=== PATIENT | female | born 1930 | race Caucasian/White ===

== ENCOUNTER 2016-02-29 15:13 | Inpatient (IN) | payer OTHER, MEDICAID ==
[~2016-02-29] VITALS: Ht 162.6 cm; Wt 92.1 kg
[2016-02-29] MEDS ORDERED: CEFEPIME 2GM/50 ML (PMX) 50 ML IVPB STA (15:16)
[2016-02-29] MEDS ORDERED: ALBUTEROL 0.5% (NEB) 2.5 MG/0.5 ML AMP HHN STA (15:16)
[2016-02-29] MEDS ORDERED: SOD CHLORIDE 0.9% 1,000 ML IV STA ×3 (15:20→15:43)
[2016-02-29] MEDS ORDERED: LEVALBUTEROL (NEB) 1.25 MG/0.5 ML AMP ONE (15:21)
[2016-02-29] MEDS ORDERED: LEVALBUTEROL (NEB) 1.25 MG/0.5 ML AMP HHN ONE (15:30)
[2016-02-29] MEDS ORDERED: IPRATROPIUM (NEB) 0.5 MG/2.5 ML AMP HHN ONE (15:30)
[2016-02-29] MEDS ORDERED: VANCOMYCIN 1 GM (PMX) 250 ML IVPB ONE (15:30)
[2016-02-29] MEDS ORDERED: ERGO500014 PO (15:57)
[2016-02-29] MEDS ORDERED: CLON0.2T5 PO (15:57)
--- NOTE | 2016-02-29 15:58 | RADRPT ---
PROCEDURE: XR Chest. CLINICAL INDICATION: Chest pain TECHNIQUE: Single frontal view of the chest was obtained. COMPARISON: 12/05/2007 FINDINGS: The heart is within normal limits. The thoracic aorta is calcified. There is left lower lobe linear atelectasis. There is no focal consolidation. There is no pleural effusion or pneumothorax. RPTAT: AA IMPRESSION: Left lower lobe linear atelectasis. Calcified aorta consistent with atherosclerotic disease. .Konstantin Brown MD, MD Date Time Electronically viewed and signed by .Konstantin Brown MD, on 02/29/2016 15:57 .S/
[2016-02-29] MEDS ORDERED: GABA300C16 PO (15:59)
[2016-02-29] MEDS ORDERED: ACETAMINOPHEN 325 MG TAB PO ONE (16:00)
[2016-02-29] MEDS ORDERED: MYCO500T3 PO (16:00)
[2016-02-29] MEDS ORDERED: NOVO3I SC (16:01)
[2016-02-29] MEDS ORDERED: CLOP75TA4 PO (16:01)
[2016-02-29] MEDS ORDERED: LANT3I SC (16:02)
[2016-02-29] MEDS ORDERED: LOSA1TAB21 PO (16:02)
[2016-02-29] MEDS ORDERED: AMLO-147 PO (16:14)
[2016-02-29] MEDS ORDERED: DUR100 TD (16:14)
[2016-02-29] MEDS ORDERED: LEVO250T9 PO (16:15)
[2016-02-29] MEDS ORDERED: ASPI-664 PO (16:16)
[2016-02-29] MEDS ORDERED: LATA2.5D2 BOTH EYES (16:17)
[2016-02-29] MEDS ORDERED: ALP2OP10 BOTH EYES (16:17)
[2016-02-29] MEDS ORDERED: LORAZEPAM 2 MG INJ IV ONE ×2 (16:30→20:00)
[2016-02-29 16:33] LABS: BASOPHILS % 0.3 % (0.0-2.0); EOSINOPHILS % 0.2 % (0.0-7.0); HEMATOCRIT 40.6 % (37.0-47.0); HEMOGLOBIN 12.9 g/dl (12.0-16.0); LYMPHOCYTES # 1.1 10^3/ul (0.8-2.9); LYMPHOCYTES % 12.5 % (15.0-51.0); MEAN CORPUSCULAR HEMOGLOBIN 25.8 pg (29.0-33.0); MEAN CORPUSCULAR HGB CONC 31.9 g/dl (32.0-37.0); MEAN CORPUSCULAR VOLUME 80.9 fl (82.0-101.0); MEAN PLATELET VOLUME 7.8 fl (7.4-10.4); MONOCYTE # 0.9 10^3/ul (0.3-0.9); MONOCYTES % 10.8 % (0.0-11.0); NEUTROPHIL # 6.5 10^3/ul (1.6-7.5); NEUTROPHILS % 76.2 % (39.0-77.0); PLATELET COUNT 343 10^3/UL (140-440); RED BLOOD COUNT 5.01 10^6/ul (4.20-5.40); UNCORRECTED WBC 8.5 10^3/ul (4.8-10.8); WHITE BLOOD COUNT 8.5 10^3/ul (4.8-10.8)
[2016-02-29] MEDS ORDERED: DILTIAZEM 25 MG INJ ONE (16:35)
[2016-02-29 16:37] LABS: CONDITION 1; LH ANALYZER COMMENTS 1
[2016-02-29 16:41] LABS: ALBUMIN 4.4 g/dl (3.3-4.9)
[2016-02-29 16:42] LABS: INR 0.97; POTASSIUM 4.4 mmol/L (3.5-5.1); PROTIME 12.9 Sec (12.2-14.2)
[2016-02-29 16:43] LABS: PARTIAL THROMBOPLASTIN TIME 25.7 Sec (25.0-35.0)
[2016-02-29 16:44] LABS: ALBUMIN/GLOBULIN RATIO 1.18; BILIRUBIN,INDIRECT 0.1 mg/dl (0-1.1); BILIRUBIN,TOTAL 0.1 mg/dl (0.2-1.3); CREATININE 1.17 mg/dl (0.44-1.00); TOTAL PROTEIN 8.1 g/dl (6.1-8.1)
[2016-02-29 16:45] LABS: CALCIUM 9.5 mg/dl (8.4-10.2)
[2016-02-29 16:56] LABS: TROPONIN-I 0.017 ng/ml (0.00-0.12)
[2016-02-29] MEDS ORDERED: DILTIAZEM 25 MG INJ IV ONE ×2 (17:00→20:00)
[2016-02-29] MEDS ORDERED: METHYLPREDNISOLONE 125 MG INJ IV ONE (19:00)
[2016-02-29] MEDS ORDERED: ONDANSETRON 4 MG INJ IV PRN (19:00)
[2016-02-29] MEDS ORDERED: ACETAMINOPHEN 325 MG TAB PO PRN (19:00)
--- NOTE | 2016-02-29 19:27 | ERA ---
ER Documentation Chief Complaint Date/Time DATE: 02/29/16 TIME: 19:24 Chief Complaint pt biba for asthma attack, , o2 sat is 95% on RA, very anxious HPI Patient is an 85-year-old female who presents short of breath. Please note the history and physical exam is limited secondary to the patient's significant short of breath. The patient came from home. She has diffuse rhonchi. She was given a nebulizer treatment by paramedics. Per the son she has been taking antibiotics for the past 2 days. ROS All systems reviewed and are negative except as per history of present illness. Medications Home Meds Reported Medications Latanoprost (Latanoprost) 2.5 Ml Drops, 1 DROP BOTH EYES QHS, #1 BOTTLE 02/29/16 Brimonidine Tartrate* (Alphagan*) 0.2%-10 Ml Opht Drops, 1 DROP BOTH EYES Q8, BOTTLE 02/29/16 Aspirin* (Aspirin* EC) 81 Mg Tablet.dr, 81 MG PO DAILY, TAB 02/29/16 Levofloxacin* (Levofloxacin*) 250 Mg Tablet, 250 MG PO DAILY, TAB FOR 7 DAYS START 02/27/16 02/29/16 Amlodipine Besylate* (Amlodipine Besylate*) 10 Mg Tablet, 10 MG PO DAILY, #30 TAB 02/29/16 Fentanyl Patch* (Duragesic Patch*) 100 Mcg/Hr Transdermal Patch, 1 PATCH TD Q72H for 90 Days, #45 PATCH 02/29/16 Losartan-Hydrochlorothiazide (Losartan-HCTZ) 100-12.5 Mg Tab, 1 TAB PO DAILY, TAB 02/29/16 Insulin Glargine* (Lantus*) 100 Unit/Ml Soln, 60 UNIT SC QHS, #1 VIAL 02/29/16 Insulin Aspart* (Novolog Insulin Pen*) 100 Unit/Ml Soln, UNIT SC WITH MEALS, EA SLIDING SCALE 02/29/16 Clopidogrel Bisulfate* (Clopidogrel Bisulfate*) 75 Mg Tablet, 75 MG PO DAILY, # 30 TAB 02/29/16 Mycophenolate Mofetil* (Mycophenolate Mofetil*) 500 Mg Tablet, 500 MG PO BID, TAB 02/29/16 Gabapentin* (Gabapentin*) 300 Mg Capsule, 300 MG PO Q4, #540 CAP 02/29/16 Ergocalciferol* (Drisdol* (Vitamin D2)) 50,000 Unit Capsule, 72946 UNIT PO Q7D, CAP 02/29/16 Clonidine Hcl* (Clonidine Hcl*) 0.2 Mg Tablet, 0.2 MG PO TID, TAB 02/29/16 Allergies Allergies: Coded Allergies: No Known Drug Allergy (Verified Allergy, Unknown, 07/17/07) PMhx/Soc History of Surgery: Yes (hysterectomy, gallbladder, ) Hx Respiratory Disorders: Yes (asthma) Hx Cardiac Disorders: Yes (htn, cholesterol ) Hx Miscellaneous Medical Probl: Yes (penphgoids , DM) Hx Alcohol Use: No Hx Substance Use: No Hx Tobacco Use: No Smoking Status: Never smoker FmHx Unable to obtain Physical Exam Vitals Vital Signs Date Time Temp Pulse Resp B/P Pulse Ox O2 Delivery O2 Flow Rate FiO2 02/29/16 19:05 114 99 75 02/29/16 18:32 90 24 100 Nasal Cannula 3.0 02/29/16 17:36 98.9 98 16 138/66 100 Mask 02/29/16 17:24 95 15 173/57 100 Mask 02/29/16 17:05 96 99 75 02/29/16 16:38 100.5 150 19 210/180 100 Mask 02/29/16 15:59 8.0 02/29/16 15:58 9 02/29/16 15:46 100.4 143 23 173/107 100 Mask 02/29/16 15:29 138 96 100 02/29/16 15:29 140 24 02/29/16 15:17 100.3 148 23 173/107 99 Physical Exam Const: Moderate distress secondary to shortness of breath Head: Atraumatic Eyes: Normal Conjunctiva ENT: Normal External Ears, Nose and Mouth. Neck: Full range of motion..~ No meningismus. Resp: Accessory muscle use, retractions, diffuse rhonchi in all lung rodriguez Cardio: Tachycardic rate without murmurs Abd: Soft, non tender, non distended. Normal bowel sounds Skin: No petechiae or rashes Back: No midline or flank tenderness Ext: No cyanosis, or edema Neur: Awake but anxious Result Diagram: 02/29/16 1550 02/29/16 1550 Results 24 hrs Laboratory Tests Test 02/29/16 15:50 02/29/16 18:50 Activated Partial Thromboplast Time 25.7Sec Alanine Aminotransferase (ALT/SGPT) 25IU/L Albumin 4.4g/dl Albumin/Globulin Ratio 1.18 Alkaline Phosphatase 97IU/L Anion Gap 20 Aspartate Amino Transf (AST/SGOT) 17IU/L Basophils # 0.010^3/ul Basophils % 0.3% Blood Morphology Comment Blood Urea Nitrogen 36mg/dl Calcium Level 9.5mg/dl Carbon Dioxide Level 23mmol/L Chloride Level 100mmol/L Creatinine 1.17mg/dl Direct Bilirubin 0.00mg/dl Eosinophils # 0.010^3/ul Eosinophils % 0.2% Globulin 3.70g/dl Glucose Level 228mg/dl Hematocrit 40.6% Hemoglobin 12.9g/dl INR International Normalized Ratio 0.97 Indirect Bilirubin 0.1mg/dl Lactic Acid Level 2.3mmol/L 2.4mmol/L Lymphocytes # 1.110^3/ul Lymphocytes % 12.5% Mean Corpuscular Hemoglobin 25.8pg Mean Corpuscular Hemoglobin Concent 31.9g/dl Mean Corpuscular Volume 80.9fl Mean Platelet Volume 7.8fl Monocytes # 0.910^3/ul Monocytes % 10.8% Neutrophils # 6.510^3/ul Neutrophils % 76.2% Nucleated Red Blood Cells # 0.010^3/ul Nucleated Red Blood Cells % 0.0/100WBC Platelet Count 17842^3/UL Potassium Level 4.4mmol/L Prothrombin Time 12.9Sec Prothrombin Time Ratio 1.0 Red Blood Count 5.0110^6/ul Red Cell Distribution Width 16.0% Sodium Level 139mmol/L Total Bilirubin 0.1mg/dl Total Protein 8.1g/dl Troponin I 0.017ng/ml White Blood Count 8.510^3/ul Current Medications Medications (Trade) Dose Ordered Sig/Heidi Route PRN Reason Start Time Stop Time Status Last Admin Dose Admin Cefepime HCl 50 ml @ 100 mls/hr ONCE STAT IVPB 02/29/16 15:16 02/29/16 15:45 DC 02/29/16 15:53 Vancomycin HCl (Vancocin) 250 ml @ 125 mls/hr ONCE ONCE IVPB 02/29/16 15:30 02/29/16 17:29 DC 02/29/16 17:38 Albuterol (Proventil 0.5% (Neb)) 15 mg ONCE STAT HHN 02/29/16 15:16 02/29/16 15:21 DC Ipratropium [place] (Atrovent 0.02% (Neb)) 0.5 mg ONCE ONCE HHN 02/29/16 15:30 02/29/16 15:31 DC 02/29/16 15:29 Levalbuterol 5 mg 5 mg ONCE ONCE HHN 02/29/16 15:30 02/29/16 15:31 DC 02/29/16 15:29 Sodium Chloride 1,000 ml @ 1,000 mls/hr Q1H STAT IV 02/29/16 15:20 02/29/16 16:19 DC 02/29/16 15:53 Sodium Chloride (NS) 1,000 ml @ 1,000 mls/hr Q1H STAT IV 02/29/16 15:20 02/29/16 16:19 DC 02/29/16 18:48 Levalbuterol (Xopenex Neb) 1.25 mg STK-MED ONCE .ROUTE 02/29/16 15:21 02/29/16 15:22 DC Acetaminophen 650 mg 650 mg ONCE ONCE PO 02/29/16 16:00 02/29/16 16:01 DC 02/29/16 15:53 Sodium Chloride (NS) 1,000 ml @ 1,000 mls/hr Q1H STAT IV 02/29/16 15:43 02/29/16 16:42 DC Lorazepam (Ativan) 0.5 mg ONCE ONCE IV 02/29/16 16:30 02/29/16 16:31 DC 02/29/16 16:39 Diltiazem HCl (Cardizem Iv) 20 mg ONCE ONCE IV 02/29/16 17:00 02/29/16 17:01 DC 02/29/16 16:39 Diltiazem HCl (Cardizem Iv) 25 mg STK-MED ONCE .ROUTE 02/29/16 16:35 02/29/16 16:36 DC Methylprednisolone Sodium Succinate (Solu-Medrol) 125 mg ONCE ONCE IV 02/29/16 19:00 02/29/16 19:01 DC Ondansetron HCl (Zofran Inj) 4 mg ER BRIDGE PRN IV NAUSEA AND/OR VOMITING 02/29/16 19:00 12/15/16 18:59 Acetaminophen (Tylenol Tab) 650 mg ER BRIDGE PRN PO MILD PAIN/FEVER 02/29/16 19:00 03/01/16 18:59 Procedures/MDM EKG read by me: Rate/Rhythm: Rapid atrial fibrillation at a rate of 141 Intervals: Normal Impression: Rapid A. fib without evidence of ischemia Chest X-ray 1V Interpreted by me: Soft Tissue: No acute abnormalities Bones: No acute abnormalities Mediastinum/Cardiac Silhouette/Lungs: Right lower lobe pneumonia Admit MDM: Patient's infectious symptoms have not stabilized and the patient is at risk of rapid decompensation. The patient will be admitted for careful hydration, antibiotic therapy, and infectious source control. Severe Sepsis criteria: Infectious source: Pneumonia End organ damage indicated by: Respiratory failure Sepsis Management: Time of recognition of sepsis: Upon arrival Within 3 hours of recognition: Blood cultures x 2 before broad-spectrum antibiotics: Yes 30 ml/kg NS bolus Completed Initial lactate 2.3 Repeat lactate 2.4 Time of recognition of septic shock: No septic shock Septic Shock Assessment: Any lactic acid > 4.0 No Persistent hypotension (SBP < 90 or 40 mmHg drop, MAP < 65) despite 30 mL/kg IV fluid bolus No Volume Re-assessment for Septic Shock (post 30 ml/kg bolus): No septic shock at this time Persistent Hypotension Treatment: Comfort care No Central line Not Required Vasopressor started Not required I considered further perfusion assessment with CVP measurement, SCVO2, bedside ultrasound volume assessment, passive leg raise, trial of further fluid bolus. And proceeded with 30 ml/kg fluid bolus of NSS, broad spectrum antibiotics, and admission. The patient also required BiPAP therapy. We initially weaned her from BiPAP to nasal cannula but she became short of breath and hypoxic and BiPAP was restarted. Accepting Care Team Current data and ongoing care discussed. Admitting Physician: Dr. Whitfield from the [facility] at the patient has [employer] insurance claim adjuster(s): None Outstanding Data: Culture results Critical Care: Critical care time 35 minutes excluding all billable procedures Emergent fluid management while maintaining close respiratory support. Provision of immediate and broad-spectrum antibiotic therapy. Simultaneous assessment for possible sources in order to direct targeted therapy. Consideration for invasive and chemical support to prevent cardiopulmonary collapse. Departure Diagnosis: Primary Impression: Sepsis Qualified Code: A41.9 - Sepsis, due to unspecified organism Additional Impressions: PNA (pneumonia) Qualified Code: J18.9 - Pneumonia of right lower lobe due to infectious organism Shortness of breath Condition: Serious BASILIO BUCIO MD Feb 29, 2016 19:27
[2016-02-29 20:05] LABS: AADO2 Arterial 263.4 mmHg (7.0-24.0); Allen Test ACCEPTAB; Arterial COHb 0.3 % (0.0-3.0); Arterial Fraction of Oxyhgb 98.5 % (93.0-99.0); Arterial HCO3 20.6 mmol/L (22.0-26.0); Arterial MetHb 0.3 % (0.0-1.5); Arterial Total Hemglobin 12.5 g/dl (12.0-18.0); Blood Gas IEPAP 15/5; Blood Gas PS 10; MODE MASK - BIPAP
[2016-03-01] VITALS (12 sets, daily range): BP systolic 135–185; BP diastolic 63–84; PULSE 65–99; RESP 18–20; TEMP 98; Ht 162.6 cm; Wt 92.1 kg
--- NOTE | 2016-03-01 00:56 | QN ---
Documentation Comment H&P dict a/p 1. pulm: copd vs asthma, prolonged expirations with wheeze, cont nebs, and steroids, abx 2. cards: a fib, controlled rate (b) presumed CAD in light of aspirin and plavix, will continue; presumed that this dual antiplatlet is the more important treatment rated than anticoagulation for afib 3. gi: ?hepatosplenomegaly on exam, obtain us to evaluate 4. dm 5. proph; ROQUE Foster MD Mar 01, 2016 00:56
[2016-03-01] MEDS ORDERED: ALBUTEROL 0.083% (NEB) 2.5 MG/3 ML AMP HHN PRN (01:00)
[2016-03-01] MEDS ORDERED: ONDANSETRON 4 MG INJ IV PRN (01:00)
[2016-03-01] MEDS ORDERED: GLUCAGON 1 MG INJ IM PRN (02:00)
[2016-03-01] MEDS ORDERED: GLUCOSE GEL 15 GRAM TUBE PO PRN ×2 (02:00)
[2016-03-01] MEDS ORDERED: INSULIN GLARGINE [LANtus] 3 ML PEN SC ONE (02:00)
[2016-03-01] MEDS ORDERED: DEXTROSE 50% 50 ML SYRINGE IV PRN ×2 (02:00)
[2016-03-01] MEDS ORDERED: GLUCOSE GEL 15 GRAM TUBE BUCCAL PRN (02:00)
[2016-03-01] MEDS: ALBUTEROL/IPRATROPIUM (NEB) 3 ML AMP HHN SCH ×4 (02:32→20:05)
[2016-03-01] MEDS: METHYLPREDNISOLONE 125 MG INJ IV SCH ×3 (02:39→18:08)
[2016-03-01] MEDS: DILTIAZEM 30 MG TAB PO SCH ×4 (02:46→22:11)
[2016-03-01] MEDS: GABAPENTIN 300 MG CAP PO SCH ×3 (02:46→18:08)
--- NOTE | 2016-03-01 03:33 | HP ---
DATE OF ADMISSION: 02/29/2016 CHIEF COMPLAINT: Shortness of breath. HISTORY OF PRESENT ILLNESS: Ms. Jalloh presents to the emergency room at [facility] with a 2 day history of increasing shortness of breath. According to her caregiver at the bedside, the p andrzej has been complaining of shortness of breath with some coughing for the last 2 days. This has gotten progressively worse to the point where she needed to come to the emergency room. She denies any recent illness, any fevers or chills. Denies cold or flu. She states that she has been in the hospital previously for similar type symptoms. She saw her primary care physician approximately a day ago and was provided what they described as cortisone and antibiotics; however, this has gotten worse. PAST MEDICAL HISTORY: Significant for diabetes, hypertension, and is presumed also include atrial f ibrillation, coronary artery disease, and COPD based on patient's medication list. The patient's ca regiver is not familiar, however, with these conditions. MEDICATIONS: As an outpatient include 1. Plavix 75 mg daily. 2. Norvasc 10 mg daily. 3. Clonidine 0.2 mg t.i.d. 4. Losartan/hydrochlorothiazide 100/12.5. 5. Aspirin 81 mg daily. 6. Duragesic 100 mcg per hour patch. 7. Neurontin 300 mg, possibly as often as every 4 hours. 8. Eyedrops. 9. Lantus 60 units daily with aspart insulin correction. 10. Vitamin D. 11. Mycophenolate. ALLERGIES: NO KNOWN DRUG ALLERGIES. SOCIAL HISTORY: The patient lives at home in [place] and has the assistance of a caregiver 24 hour s who lives with her who provides mostly housework, cooking and shopping assistance. Neither the pa tient nor caregiver drive. Family will take the patient to her various appointments. She does use a walker, but she is independent with dressing and feeding herself. FAMILY HISTORY: Noncontributory. REVIEW OF SYSTEMS: Five systems reviewed and found not to be revealing. PHYSICAL EXAMINATION: VITAL SIGNS: Blood pressure is 131/72, pulse rate 84, respirations 17, temperature is 100.5. GENERAL: Elderly woman found lying in bed on BiPAP, awake, responds to questions when they are alcala slated by the caregiver. HEENT: Normocephalic, atraumatic without evident scleral icterus, perioral cyanosis. Mucous membra mayda are moist. NECK: Soft and supple without masses. I do not appreciate any jugular venous distention or carotid bruits. CHEST: Shows prolonged expiration and faint wheezing throughout. I do not appreciate any definitiv e crackles. There is no dullness to percussion. HEART: Irregular rhythm, S1-S2, no added sounds. ABDOMEN: Soft, distended with obesity, moves with BiPAP respiration, somewhat rigid. There is a koo ggestion on examination of hepatosplenomegaly to approximately the umbilicus for both lower organs, but no tenderness is elicited. EXTREMITIES: Without clubbing or cyanosis. There is modest edema bilaterally with some venous eliane is changes. Pedal pulses are intact. SKIN: Otherwise without rashes. NEUROLOGIC: Poorly cooperative but moving all limbs without difficulty. LABORATORY STUDIES: Reveal hemoglobin of 12.9 g/dL, white count 8500, platelets of 343,000. INR is 1.0. Sodium 139, potassium 4.4, chloride 100, bicarbonate 23, BUN 36, creatinine 1.17, glucose 228 . Liver function tests are unremarkable. Troponin is negative x1. Lactic acid was 2.3 at arrival. It has most recently been repeated at 1.1. Arterial blood gas done on BiPAP reveals a pH of 7.28, PCO2 of 45, PO2 of 224 on an FIO2 of 75%. Chest x-ray shows some faint atelectasis versus infiltra te in the right lower lobe. ASSESSMENT AND PLAN: 1. Pulmonary: The patient with shortness of breath likely related to reactive airways disease, ast hma, and chronic obstructive pulmonary disease. We will continue nebulizers and steroids and give L evaquin. 2. Possible infiltrate in the right lower lobe. We will obtain followup x-ray in approximately 24 to 48 hours to further delineate and continue antibiotics at this time. 3. Cardiac: The patient with presumed coronary artery disease. Continue aspirin and Plavix. The patient with atrial fibrillation on the monitor. Determine if or if not aspirin and Plavix is the p referred treatment to full anticoagulation for this. 4. Gastrointestinal: The patient with possible hepatosplenomegaly based on physical examination. We will obtain abdominal ultrasound for further evaluation. 5. Diabetes: Continue Accu-Cheks and sliding scale. 6. Prophylaxis with Lovenox. Dictated By: ROQUE MÁRQUEZ MD RER/NTS Conf#: [id number] DID#: [id number]
[2016-03-01] MEDS ORDERED: LEVOFLOXACIN 500MG/D5W (PMX) 100 ML IVPB ONE (06:00)
[2016-03-01 06:25] LABS: BASOPHILS % 0.1 % (0.0-2.0); EOSINOPHILS % 0.1 % (0.0-7.0); HEMOGLOBIN 11.6 g/dl (12.0-16.0); LYMPHOCYTES # 0.6 10^3/ul (0.8-2.9); MEAN CORPUSCULAR HEMOGLOBIN 26.2 pg (29.0-33.0); MEAN CORPUSCULAR HGB CONC 32.2 g/dl (32.0-37.0); MEAN CORPUSCULAR VOLUME 81.3 fl (82.0-101.0); MEAN PLATELET VOLUME 8.2 fl (7.4-10.4); MONOCYTE # 0.1 10^3/ul (0.3-0.9); NEUTROPHIL # 6.4 10^3/ul (1.6-7.5); NEUTROPHILS % 90.8 % (39.0-77.0); PLATELET COUNT 270 10^3/UL (140-440); RED BLOOD COUNT 4.42 10^6/ul (4.20-5.40)
[2016-03-01 06:26] LABS: CONDITION 1; LH ANALYZER COMMENTS 1
[2016-03-01 06:39] LABS: ALBUMIN 3.9 g/dl (3.3-4.9)
[2016-03-01 06:40] LABS: POTASSIUM 4.9 mmol/L (3.5-5.1)
[2016-03-01 06:42] LABS: CREATININE 1.2 mg/dl (0.44-1.00)
[2016-03-01 06:43] LABS: ALBUMIN/GLOBULIN RATIO 1.18; CALCIUM 8.4 mg/dl (8.4-10.2); TOTAL PROTEIN 7.2 g/dl (6.1-8.1)
[2016-03-01 06:53] LABS: TROPONIN-I 0.039 ng/ml (0.00-0.12)
[2016-03-01] MEDS ORDERED: AMLODIPINE 10 MG TAB PO SCH (09:00)
[2016-03-01] MEDS: CLOPIDOGREL 75 MG TAB PO SCH (09:07)
[2016-03-01] MEDS: MYCOPHENOLATE 250 MG CAP PO SCH ×2 (09:08→22:10)
[2016-03-01] MEDS: LOSARTAN 50 MG TAB PO SCH (09:11)
[2016-03-01] MEDS: ASPIRIN (EC) 81 MG TAB PO SCH (09:11)
[2016-03-01] MEDS: HYDROCHLOROTHIAZIDE 12.5 MG CAP PO SCH (09:12)
[2016-03-01] MEDS: ENOXAPARIN 40 MG/0.4 ML SYG SC SCH (09:12)
[2016-03-01] MEDS: BRIMONIDINE 0.2% 5 ML BTL BOTH EYES SCH ×3 (09:12→22:10)
[2016-03-01] MEDS: INSULIN ASPART [NOVOLOG] 3 ML PEN SC SCH ×4 (09:13→21:00)
--- NOTE | 2016-03-01 09:15 | RADRPT ---
PROCEDURE: Complete abdominal and retroperitoneum ultrasound. CLINICAL INDICATION: Abdominal pain, hepatomegaly, splenomegaly TECHNIQUE: Salmeron scale and color doppler ultrasound images of the abdomen and retroperitoneum. COMPARISON: None FINDINGS: Pancreas: Poorly visualized Liver: Morphology: Normal in size and contour. Echogenicity: Normal. Focal lesions: None. Main portal vein: Not visualized. Biliary System: Status post cholecystectomy. No evidence of intrahepatic biliary dilatation. Common bile duct diameter: Not visualized Spleen: Normal in size, no focal lesions. Measures 10.3 cm Kidneys: Right length: 8.3 cm Left kidney not adequately visualized. Normal echogenicity. No hydronephrosis. No focal lesions or renal calculi. No free fluid identified. IMPRESSION: Mildly atrophic right kidney. Left kidney not visualized. Normal size liver and spleen. Status post cholecystectomy. RPTAT: AADD .Douglas Kessler MD, Date Time Electronically viewed and signed by .Douglas Kessler MD, on 03/01/2016 09:14 .B/
[2016-03-01 10:23] LABS: AADO2 Arterial 530.3 mmHg (7.0-24.0); Allen Test ACCEPTAB; Arterial COHb 0.1 % (0.0-3.0); Arterial Fraction of Oxyhgb 98.1 % (93.0-99.0); Arterial HCO3 18.8 mmol/L (22.0-26.0); Arterial MetHb 0.3 % (0.0-1.5); MODE MASK - NRB
--- NOTE | 2016-03-01 14:39 | RADRPT ---
AMENDMENT: 03/01/2016 3:01:54 PM Josse King M.D. Addendum: Correction: PROCEDURE: Bilateral lower extremity venous duplex ultrasound CLINICAL INDICATION: Shortness of breath, lower extremity pain. TECHNIQUE: Multiple longitudinal and transverse images of the bilateral lower extremity veins were obtained with sorto scale and color Doppler imaging. 2D grayscale measurements with compression, co sade Doppler flow, and augmentation was performed. The calf veins were interrogated as well. COMPARISON: No prior studies are available for comparison. FINDINGS: The bilateral common femoral, superficial femoral and popliteal veins are normally compressible thro ughout. Color flow demonstrates normal filling of the vessel. Normal waveforms are visualized and there is normal response to augmentation. The calf veins are visualized and are equally unremarkabl e. IMPRESSION: 1. No evidence of a deep vein thrombosis involving the bilateral lower extremities. PROCEDURE: US DVT. CLINICAL INDICATION: Shortness of breath, lower extremity pain. TECHNIQUE: Multiple longitudinal and transverse images of the right lower extremity veins were obt ained with sorto scale and color Doppler imaging. 2D grayscale measurements with compression, color Doppler flow, and augmentation was performed. The calf veins were interrogated as well. COMPARISON: No prior studies are available for comparison. FINDINGS: The right common femoral, superficial femoral and popliteal veins are normally compressible througho ut. Color flow demonstrates normal filling of the vessel. Normal waveforms are visualized and ther e is normal response to augmentation. The calf veins are visualized and are equally unremarkable. IMPRESSION: 1. No evidence of a deep vein thrombosis involving the right lower extremity. RPTAT: AACC Physician Олег Date Time Electronically viewed and signed by Physician Олег on 03/01/2016 15:02 /
--- NOTE | 2016-03-01 16:45 | CONS ---
DATE OF ADMISSION: 02/29/2016 DATE OF CONSULTATION: 03/01/2016 TYPE OF CONSULTATION: Pulmonary. REFERRING PHYSICIAN: Efrem Simpson MD REASON FOR CONSULTATION: Acute hypoxemic respiratory failure. HISTORY OF PRESENT ILLNESS: This is an 85-year-old woman who was brought into the emergency room wi complaints of increasing shortness of breath. It appears that the patient has developed a new co ugh, which was productive, and then developed shortness of breath. She was seen by her primary care physician and started on steroids and an antibiotic; however, her symptoms persisted and actually g ot worse and subsequently she came to the ER for further evaluation. On chest x-ray, she was noted to have any bandemia atelectasis in the left lower lobe, otherwise no acute infiltrates were identi fied. Cultures were obtained. Patient was started on broad-spectrum antibiotics. Due to her profo und hypoxemia. The patient was placed on a BiPAP mask. She is currently on BiPAP on 50% FIO2, satu rating 99% and does not appear in acute distress. She is awake and responsive. REVIEW OF SYSTEMS: Could not be obtained due to language barrier . PAST MEDICAL HISTORY: Apparently history of diabetes mellitus, hypertension, atrial fibrillation, c oronary artery disease and COPD. ALLERGIES: NO KNOWN ALLERGIES. SOCIAL HABITS: Patient lives at home with a caregiver. FAMILY HISTORY: Unavailable. PHYSICAL EXAMINATION: VITAL SIGNS: Blood pressure 176/73, pulse 84, respirations 15, temperature 98. HEENT: Pupils are equal and reactive to light. BiPAP in place. NECK: Supple, no JVD noted, no cervical adenopathy, no carotid bruits heard. LUNGS: Diminished breath sounds and few rhonchi. CARDIOVASCULAR: S1, S2 normal, irregular. ABDOMEN: Soft, obese, nontender. No organomegaly or masses noted. EXTREMITIES: No clubbing or cyanosis noted. 1+ edema present bilaterally. NEUROLOGICAL: Awake and responsive. LABORATORY DATA: ABG shows a pH of 7.25, pCO2 43, pO2 of 139. Sodium 141, potassium 4.9, chloride 106, CO2 20, BUN 33, creatinine 1.2, glucose 314. WBC 7, hemoglobin 11.6, hematocrit 36, platelets 270. Chest x-ray left linear atelectasis. IMPRESSION: An 85-year-old female with: 1. Acute hypoxemic respiratory failure. 2. Chronic obstructive pulmonary disease exacerbation. 3. Bronchitis. At this point, there is no clear evidence of pneumonia yet. 4. Metabolic acidosis. 5. History of diabetes. 6. History of hypertension. 7. Atrial fibrillation. 8. Coronary artery disease. RECOMMENDATIONS: 1. BiPAP p.r.n. 2. Check cultures. 3. Antibiotics. 4. Bronchodilators. 5. Oxygen. 6. Followup chest x-ray. 7. Check Dopplers of the lower extremity venous to rule out DVT. Dictated By: PARK [place] MD, MA/DARIO Conf#: [id number] DID#: [id number] CC: PARK NY MD;*EndCC*
[2016-03-02] VITALS (23 sets, daily range): BP systolic 114–169; BP diastolic 56–86; PULSE 62–153; RESP 16–20
[2016-03-02] MEDS: ALBUTEROL/IPRATROPIUM (NEB) 3 ML AMP HHN SCH ×4 (01:35→21:28)
[2016-03-02] MEDS: GABAPENTIN 300 MG CAP PO SCH ×3 (01:43→17:38)
[2016-03-02] MEDS: LATANOPROST 0.005% 2.5 ML OPH BOTH EYES SCH ×2 (01:43→21:22)
[2016-03-02] MEDS: METHYLPREDNISOLONE 125 MG INJ IV SCH ×3 (01:43→17:38)
[2016-03-02] MEDS: DILTIAZEM 30 MG TAB PO SCH ×4 (01:46→21:09)
[2016-03-02] MEDS: ACCUCHECK AT 2AM (Patients on SS coverage) XX SCH (01:52)
[2016-03-02 06:45] LABS: HEMATOCRIT 35.8 % (37.0-47.0); HEMOGLOBIN 11.4 g/dl (12.0-16.0); LYMPHOCYTES # 0.7 10^3/ul (0.8-2.9); LYMPHOCYTES % 15.3 % (15.0-51.0); MEAN CORPUSCULAR HEMOGLOBIN 25.8 pg (29.0-33.0); MEAN CORPUSCULAR HGB CONC 31.9 g/dl (32.0-37.0); MEAN CORPUSCULAR VOLUME 81.1 fl (82.0-101.0); MEAN PLATELET VOLUME 8.2 fl (7.4-10.4); MONOCYTE # 0.1 10^3/ul (0.3-0.9); MONOCYTES % 1.4 % (0.0-11.0); NEUTROPHIL # 3.8 10^3/ul (1.6-7.5); NEUTROPHILS % 83.3 % (39.0-77.0); PLATELET COUNT 257 10^3/UL (140-440); RED BLOOD COUNT 4.41 10^6/ul (4.20-5.40); RED CELL DISTRIBUTION WIDTH 16.2 % (11.5-14.5); UNCORRECTED WBC 4.6 10^3/ul (4.8-10.8); WHITE BLOOD COUNT 4.6 10^3/ul (4.8-10.8)
[2016-03-02 06:51] LABS: ALBUMIN 3.7 g/dl (3.3-4.9)
[2016-03-02 06:53] LABS: CREATININE 1.37 mg/dl (0.44-1.00)
[2016-03-02 06:54] LABS: ALBUMIN/GLOBULIN RATIO 1.12; CALCIUM 8.7 mg/dl (8.4-10.2)
[2016-03-02 06:59] LABS: CONDITION 1; LH ANALYZER COMMENTS 1
[2016-03-02] MEDS: BRIMONIDINE 0.2% 5 ML BTL BOTH EYES SCH ×3 (07:01→21:22)
[2016-03-02] MEDS: LEVOFLOXACIN 250MG/D5W (PMX) 50 ML IVPB SCH (07:02)
[2016-03-02 07:28] LABS: PHOSPHORUS 5.2 mg/dl (2.5-4.9)
[2016-03-02 07:29] LABS: MAGNESIUM 2.1 mg/dl (1.7-2.5)
--- NOTE | 2016-03-02 08:24 | RADRPT ---
PROCEDURE: XR Chest. CLINICAL INDICATION: Shortness of breath. TECHNIQUE: Single frontal view. COMPARISON: 02/29/2016. FINDINGS: There is mild left basilar atelectasis. The lungs are otherwise clear. The heart size is normal. There is calcification in the aorta consistent with atherosclerosis. There is no pleural effusion. There is no pneumothorax. IMPRESSION: 1. Mild left basilar atelectasis. 2. Atherosclerosis. 3. Otherwise normal chest x-ray. 4. No change from 02/29/2016. RPTAT: QQ .Jim Calloway MD, MD Date Time Electronically viewed and signed by .Jim Calloway MD, MD on 03/02/2016 08:23 .R/
[2016-03-02] MEDS: INSULIN ASPART [NOVOLOG] 3 ML PEN SC SCH ×4 (08:35→21:11)
[2016-03-02] MEDS: ASPIRIN (EC) 81 MG TAB PO SCH (10:05)
[2016-03-02] MEDS: MYCOPHENOLATE 250 MG CAP PO SCH (10:05)
[2016-03-02] MEDS: CLOPIDOGREL 75 MG TAB PO SCH (10:06)
[2016-03-02] MEDS: HYDROCHLOROTHIAZIDE 12.5 MG CAP PO SCH (10:06)
[2016-03-02] MEDS: LOSARTAN 50 MG TAB PO SCH (10:07)
[2016-03-02] MEDS: ENOXAPARIN 40 MG/0.4 ML SYG SC SCH (10:10)
[2016-03-02] MEDS: morphine 2 MG INJ IV PRN (11:42)
--- NOTE | 2016-03-02 12:56 | PN ---
Date/Time of Note Date/Time of Note DATE: 03/02/16 TIME: 11:50 Assessment/Plan VTE Prophylaxis VTE Prophylaxis Intervention: SCD's Lines/Catheters IV [facility]from [facility] Urinary Cath still in place: No Assessment/Plan Assessment/Plan 85 yo female with: 1. Acute Respiratory failure. ? Bronchitis/URI/ PNA with reported history of Asthma Dopplers negative and repeat CXR stable/mostly clear Pulmonary following Still requiring BiPAP today Continue nebulizers, steroids, Levaquin. 2. Paroxysmal A fib, no CAD per family but hx of Minor CVA ... patient should be now on anticoagulation given findings of A fib, family agreeable and will d/ c Plavix. Patient not on ASA as outpatient per Family so will also d/c Continue Cardizem and check 2D echo and TFTs Start Eliquis. 3. Diabetes Mellitus: Continue Accu-Cheks and sliding scale. Resume Lantus at 20 units qhs and titrate up as tolerated 4. Severe Hypertension: continue Losartan, split dose, also on Clonidine and Norvasc, maximizing Cardizem as tolerated for HR control and d/c HCTZ for now, if needs diuresis, use Lasix or Bumex. 5. Pemphigoid disease per family, chronic for years and has been on Cellcept Prophylaxis: Now on Eliquis given A fib, PPI for GI ppx Disposition: BiPAP and follow up Pulmonary recs, 2D echo and TFTs. Cardiology consult if needed Subjective 24 Hr Interval Summary Free Text/Dictation Patient back on BiPAP today, still on nebs and steroids Appreciate recommendations from Dr Horton Continue BiPAP Exam/Review of Systems Vital Signs Vitals Vital Signs Date Time Temp Pulse Resp B/P Pulse Ox O2 Delivery O2 Flow Rate FiO2 03/02/16 11:28 114 98 40 03/02/16 08:30 20 Nasal Cannula 5.0 03/02/16 07:40 97.9 169/72 Intake and Output 03/01/16 03/01/16 03/02/16 15:00 23:00 07:00 Intake Total 120 ml Balance 120 ml Exam Constitutional: alert, other (on BiPAP) Respiratory: diminished breath sounds (bilaterally ), labored breathing, wheezing (expiratory ) Cardiovascular: irregular rhythm (A fib ) Gastrointestinal: non-tender, soft Musculoskeletal: nl extremities to inspection, other (no edema, clubbing or cyanosis ) Extremities: normal pulses 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, lethargic, other (on BiPAP) Results Result Diagram: 03/02/1652103/02/16521 Results 24 hrs Laboratory Tests Test 03/01/16 12:49 03/01/16 17:45 03/01/16 21:39 03/02/16 05:22 Bedside Glucose 228 H 100 116 Alanine Aminotransferase (ALT/SGPT) 28 Albumin 3.7 Albumin/Globulin Ratio 1.12 Alkaline Phosphatase 73 Anion Gap 18 H Aspartate Amino Transf (AST/SGOT) 19 Basophils # 0.0 Basophils % 0.0 Blood Morphology Comment Blood Urea Nitrogen 45 #H Calcium Level 8.7 Carbon Dioxide Level 23 Chloride Level 107 Creatinine 1.37 H Direct Bilirubin 0.00 Eosinophils # 0.0 Eosinophils % 0.0 Globulin 3.30 H Glucose Level 173 # Hematocrit 35.8 L Hemoglobin 11.4 L Hemoglobin A1c 8.2 H Indirect Bilirubin 0.0 Lymphocytes # 0.7 L Lymphocytes % 15.3 Magnesium Level 2.1 Mean Corpuscular Hemoglobin 25.8 L Mean Corpuscular Hemoglobin Concent 31.9 L Mean Corpuscular Volume 81.1 L Mean Platelet Volume 8.2 Monocytes # 0.1 L Monocytes % 1.4 Neutrophils # 3.8 Neutrophils % 83.3 H Nucleated Red Blood Cells # 0.0 Nucleated Red Blood Cells % 0.0 Phosphorus Level 5.2 H Platelet Count 257 Potassium Level 5.0 Red Blood Count 4.41 Red Cell Distribution Width 16.2 H Sodium Level 143 Total Bilirubin 0.0 L Total Protein 7.0 White Blood Count 4.6 #L Test 03/02/16 08:08 Bedside Glucose 195 Medications Medications Current Medications Aspirin (Halfprin) 81 mg DAILY PO Last administered on 03/02/16at 10:05; Admin Dose 81 MG; Start 03/01/16 at 09:00 Brimonidine Tartrate (Alphagan 0.2%) 1 drop Q8 BOTH EYES Last administered on 03/02/16at 07:01; Admin Dose 1 DROP; Start 03/01/16 at 06:00 Clonidine (Catapres) 0.2 mg TID PO Last administered on 03/02/16at 10:07; Admin Dose 0.2 MG; Start 03/01/16 at 09:00 Clopidogrel Bisulfate (plaVIX) 75 mg DAILY PO Last administered on 03/02/16 10:06; Admin Dose 75 MG; Start 03/01/16 at 09:00 Fentanyl (Duragesic 100 Mcg/Hr Patch) 1 patch Q72H TRANSDERM Last administered on 03/01/16 09:14; Admin Dose 1 PATCH; Start 03/01/16 at 09:00 Latanoprost (Xalatan) 1 drop QHS BOTH EYES Last administered on 03/02/16 01: 43; Admin Dose 1 DROP; Start 03/01/16 at 21:00 Mycophenolate Mofetil (Cellcept) 500 mg BID PO Last administered on 03/02/16 10:05; Admin Dose 500 MG; Start 03/01/16 at 09:00 Losartan Potassium (Cozaar) 100 mg DAILY PO Last administered on 03/02/16 10: 07; Admin Dose 100 MG; Start 03/01/16 at 09:00 Gabapentin (Neurontin) 300 mg Q8H PO Last administered on 03/02/16 10:07; Admin Dose 300 MG; Start 03/01/16 at 02:00 Methylprednisolone Sodium Succinate (Solu-Medrol) 60 mg Q8H IV Last administered on 03/02/16 10:08; Admin Dose 60 MG; Start 03/01/16 at 02:00 Acetaminophen (Tylenol Tab) 650 mg Q4H PRN PO pain/fever; Start 03/01/16 at 01 :00 Ondansetron HCl (Zofran Inj) 4 mg Q4H PRN IV nausea; Start 03/01/16 at 01:00 Morphine Sulfate (morphine) 2 mg Q2H PRN IV pain Last administered on 11:42; Admin Dose 2 MG; Start 03/01/16 at 01:00 Hydralazine HCl (Apresoline) 25 mg Q6H PRN PO sbp>160; Start 03/01/16 at 01:00 Diltiazem HCl (Cardizem) 30 mg Q6H PO Last administered on 03/02/16 10:08; Admin Dose 30 MG; Start 03/01/16 at 02:00 Enoxaparin Sodium 40 mg 40 mg DAILY SC Last administered on 03/02/16 10:10; Admin Dose 40 MG; Start 03/01/16 at 09:00 Levofloxacin/ Dextrose (Levaquin 250 Mg/ D5W 50 ml (Pmx)) 50 ml @ 50 mls/hr Q24H IVPB Last administered on 03/02/16at 07:02; Admin Dose 50 MLS/HR; Start 03/02/16 at 06:00 Miscellaneous Information 1 ea NOTE XX ; Start 03/01/16 at 02:00 Glucose (Glutose) 15 gm Q15M PRN PO DECREASED GLUCOSE; Start 03/01/16 at 02:00 Glucose (Glutose) 22.5 gm Q15M PRN PO DECREASED GLUCOSE; Start 03/01/16 at 02: 00 Dextrose (D50w Syringe) 25 ml Q15M PRN IV DECREASED GLUCOSE; Start 03/01/16 at 02:00 Dextrose (D50w Syringe) 50 ml Q15M PRN IV DECREASED GLUCOSE; Start 03/01/16 at 02:00 Glucagon (Glucagen) 1 mg Q15M PRN IM DECREASED GLUCOSE; Start 03/01/16 at 02: 00 Glucose (Glutose) 15 gm Q15M PRN BUCCAL DECREASED GLUCOSE; Start 03/01/16 at 02:00 Diagnostic Test (Pha) (Accucheck) 1 ea 02 XX ; Start 03/02/16 at 02:00 Hydrochlorothiazide (Hydrochlorothiazide) 12.5 mg DAILY PO Last administered on 03/02/16at 10:06; Admin Dose 12.5 MG; Start 03/01/16 at 09:00 AISHA TINEO Mar 02, 2016 12:00
[2016-03-02] MEDS ORDERED: INSULIN GLARGINE [LANtus] 3 ML PEN SC SCH (21:00)
[2016-03-02] MEDS: APIXABAN 5 MG TABLET PO SCH (21:09)
[2016-03-03] VITALS (16 sets, daily range): BP systolic 97–153; BP diastolic 57–78; PULSE 71–165; RESP 14–22
[2016-03-03] MEDS: ALBUTEROL/IPRATROPIUM (NEB) 3 ML AMP HHN SCH ×4 (02:01→20:30)
[2016-03-03] MEDS: METHYLPREDNISOLONE 125 MG INJ IV SCH ×3 (02:09→17:19)
[2016-03-03] MEDS: MYCOPHENOLATE 250 MG CAP PO SCH ×3 (02:10→22:02)
[2016-03-03] MEDS: GABAPENTIN 300 MG CAP PO SCH ×3 (02:10→17:19)
[2016-03-03] MEDS: DILTIAZEM 30 MG TAB PO SCH ×4 (02:10→20:46)
[2016-03-03] MEDS: ACCUCHECK AT 2AM (Patients on SS coverage) XX SCH (02:53)
[2016-03-03] MEDS: LEVOFLOXACIN 250MG/D5W (PMX) 50 ML IVPB SCH (05:51)
[2016-03-03] MEDS: BRIMONIDINE 0.2% 5 ML BTL BOTH EYES SCH ×3 (05:51→22:05)
[2016-03-03 07:00] LABS: BASOPHILS % 0.2 % (0.0-2.0); HEMATOCRIT 38.2 % (37.0-47.0); HEMOGLOBIN 12.3 g/dl (12.0-16.0); LYMPHOCYTES # 0.7 10^3/ul (0.8-2.9); LYMPHOCYTES % 14.4 % (15.0-51.0); MEAN CORPUSCULAR HGB CONC 32.2 g/dl (32.0-37.0); MEAN CORPUSCULAR VOLUME 80.7 fl (82.0-101.0); MONOCYTE # 0.1 10^3/ul (0.3-0.9); MONOCYTES % 1.1 % (0.0-11.0); NEUTROPHILS % 84.3 % (39.0-77.0); PLATELET COUNT 286 10^3/UL (140-440); RED BLOOD COUNT 4.74 10^6/ul (4.20-5.40); UNCORRECTED WBC 4.8 10^3/ul (4.8-10.8); WHITE BLOOD COUNT 4.8 10^3/ul (4.8-10.8)
[2016-03-03 07:02] LABS: ALBUMIN 3.8 g/dl (3.3-4.9)
[2016-03-03 07:03] LABS: POTASSIUM 5.5 mmol/L (3.5-5.1)
[2016-03-03 07:05] LABS: ALBUMIN/GLOBULIN RATIO 1.26; BILIRUBIN,INDIRECT 0.1 mg/dl (0-1.1); BILIRUBIN,TOTAL 0.1 mg/dl (0.2-1.3); CREATININE 1.38 mg/dl (0.44-1.00); TOTAL PROTEIN 6.8 g/dl (6.1-8.1)
[2016-03-03 07:06] LABS: CALCIUM 8.7 mg/dl (8.4-10.2)
[2016-03-03 07:19] LABS: CONDITION 1; LH ANALYZER COMMENTS 1
[2016-03-03 07:36] LABS: MAGNESIUM 2.2 mg/dl (1.7-2.5); PHOSPHORUS 5.3 mg/dl (2.5-4.9)
[2016-03-03] MEDS: INSULIN ASPART [NOVOLOG] 3 ML PEN SC SCH ×6 (08:17→22:30)
[2016-03-03] MEDS: LOSARTAN 50 MG TAB PO SCH ×2 (08:50→22:01)
[2016-03-03] MEDS: ASPIRIN (EC) 81 MG TAB PO SCH (08:50)
[2016-03-03] MEDS: APIXABAN 5 MG TABLET PO SCH ×2 (08:51→22:01)
[2016-03-03] MEDS: CLOPIDOGREL 75 MG TAB PO SCH (08:51)
--- NOTE | 2016-03-03 09:22 | RADRPT ---
Echocardiogram Report Patient Name: SOPHIE CHEW Gender: Female Date: 1930 Study Date: 02-Mar-2016 Diamond Blender: Amber Mcfadden MARCELLE Location: [id number] Ref. Physician: SHERWIN TINEO Quality: Technically Difficult Study Procedures: Transthoracic echocardiogram with complete 2D, M-Mode, and doppler examination. Indications: Atrial Fibrillation, PA pressures and valves. 2D/M Mode Doppler Measurement Value Normal Ranges Measurement Value Normal Ranges LVIDd 2D 5.3 3.5 - 5.6 cm AV Peak Miko 1.2 m/sec LVIDs 2D 3.3 2.1 - 4.1 cm AV Peak PG 6.0 mmHg LVPWd 2D 1.3 0.6 - 1.1 cm LVOT Peak Miko 1.1 m/sec IVSd 2D 1.1 0.6 - 1.1 cm LVOT Peak PG 4.9 mmHg AoR Diam 2D 3.0 2.0 - 3.7 cm TR Peak Miko 2.8 m/sec EDV 2D 136.7 cm3 TR Peak PG 32.1 mmHg ESV 2D 34.5 cm3 RVSP 40.0 mmHg LA Dimen 2D 4.3 2.3 - 4.0 cm Findings Left Ventricle: Lower limits of normal systolic function. Normal left ventricular cavity size. Normal left ventricular wall thickness. Ejection fraction is visually estimated at 55 %. Tissue Doppler/Mitral Doppler indices are indeterminate in this study due to the presence of atrial fibrillation. Right Ventricle: Normal right ventricular size. Normal right ventricular systolic function. Left Atrium: The left atrium is normal in size. Right Atrium: The right atrium is normal in size. Mitral Valve: Mitral valve leaflets appear mildly thickened. Mild mitral annular calcification. Trace mitral regurgitation. Aortic Valve: No significant aortic stenosis or insufficiency. Aortic valve not well visualized. Tricuspid Valve: Normal appearance of the tricuspid valve. Estimated peak PA systolic pressure 40 mmHg. There is mild tricuspid regurgitation. Pulmonic Valve: Pulmonic valve not well visualized. Pericardium: Normal pericardium with no significant pericardial effusion. Aorta: Normal aortic root. IVC: Normal size and no respiratory collapse consistent with elevated right atrial pressure. Pulmonary Artery: Normal pulmonary artery size. Conclusions 1.Lower limits of normal systolic function. Normal left ventricular cavity size. Normal left ventricular wall thickness. Ejection fraction is visually estimated at 55 %. Tissue Doppler/Mitral Doppler indices are indeterminate in this study due to the presence of atrial fibrillation. 2.Mitral valve leaflets appear mildly thickened. Mild mitral annular calcification. Trace mitral regurgitation. 3.No significant aortic stenosis or insufficiency. Aortic valve not well visualized. 4.Normal appearance of the tricuspid valve. Estimated peak PA systolic pressure 40 mmHg. There is mild tricuspid regurgitation. 5.Normal size and no respiratory collapse consistent with elevated right atrial pressure. Electronically Signed By: Fidencio Otoole 03-Mar-2016 09:22:03 -0800 Patient Name: SOPHIE CHEW Study Date: 02-Mar-2016 [id number]
[2016-03-03] MEDS ORDERED: INSULIN GLARGINE [LANtus] 3 ML PEN SC ONE (11:00)
--- NOTE | 2016-03-03 11:03 | PN ---
Date/Time of Note Date/Time of Note DATE: 03/03/16 TIME: 10:54 Assessment/Plan VTE Prophylaxis VTE Prophylaxis Intervention: SCD's Lines/Catheters IV [facility] Urinary Cath still in place: No Assessment/Plan Assessment/Plan 1. 85 yo woman, never-smoker, with acute respiratory failure. Still requiring BiPAP. H/o asthma, but no wheezing now on exam. She had Dopplers that were negative for DVT, and repeat portable CXR without infiltrates. * Continue BiPAP/facemask for now. * Continue nebulizers, steroids, intravenous Levaquin. 2. Paroxysmal atrial fibrillation, with rapid rate to 160 on telemetry today. No CAD history. Echo yesterday showed EF 55%, with no wall motion abnormalities or josse valvular disease. She has a history of minor stroke. * Stop Plavix and aspirin; coninue Eliquis started. * Continue Cardizem * Mildly hypothyroid 3. Diabetes Mellitus: Continue Accu-Cheks and sliding scale. Sugars poorly controlled yesterday and this morning. * Start on preprandial Novolog 5u * Lantus 10u now. * Boost Lantus 35 units qHS 4. Severe Hypertension: continue Losartan, split dose, also on Clonidine and Norvasc, maximizing Cardizem as tolerated for HR control and d/c HCTZ for now, if needs diuresis, use Lasix or Bumex. 5. Pemphigoid disease per family, chronic for years and has been on Cellcept Prophylaxis: Now on Eliquis given A fib, PPI for GI ppx Disposition: BiPAP and follow up Pulmonary recs, 2D echo and TFTs. Cardiology consult if needed Joey Gonsalez MD PhD [phone] Subjective 24 Hr Interval Summary Free Text/Dictation Interviewed while on BiPAP, with the assistance of a caregiver. No pain. Still difficulty breathing. Feeling thirsty. No bowel movement, according to caregiver, in seven days. Exam/Review of Systems Vital Signs Vitals Vital Signs Date Time Temp Pulse Resp B/P Pulse Ox O2 Delivery O2 Flow Rate FiO2 03/03/16 09:03 71 14 98 Nasal Cannula 3.0 03/03/16 07:41 98.5 153/69 03/03/16 06:09 40 Intake and Output 03/02/16 03/02/1603/03/16 15:00 23:00 07:00 Intake Total 170 ml 50 ml Balance 170 ml 50 ml Exam Constitutional: Mildly uncomfortable, breathing on BiPAP Respiratory: Clear breath sounds mostly, with some velcro crackles at the bases. No wheezing Cardiovascular: irregular rhythm, rapid, no murmur, good perfusion. Gastrointestinal: non-tender, soft, distended. 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 Results Result Diagram: 03/03/16 0615 03/03/16 0615 Results 24 hrs Laboratory Tests Test 03/02/16 11:58 03/02/16 12:50 03/02/16 17:27 03/02/16 21:05 Bedside Glucose 255 H 269 H 293 H Free Thyroxine 1.38 Thyroid Stimulating Hormone (TSH) 0.280 L Test 03/03/16 02:08 03/03/16 06:15 03/03/16 08:14 Bedside Glucose 240 H 303 H Alanine Aminotransferase (ALT/SGPT) 32 Albumin 3.8 Albumin/Globulin Ratio 1.26 Alkaline Phosphatase 71 Anion Gap 20 H Aspartate Amino Transf (AST/SGOT) 18 Basophils # 0.0 Basophils % 0.2 Blood Morphology Comment Blood Urea Nitrogen 62 H Calcium Level 8.7 Carbon Dioxide Level 18 L Chloride Level 104 Creatinine 1.38 H Direct Bilirubin 0.00 Eosinophils # 0.0 Eosinophils % 0.0 Globulin 3.00 Glucose Level 251 H Hematocrit 38.2 Hemoglobin 12.3 Indirect Bilirubin 0.1 Lymphocytes # 0.7 L Lymphocytes % 14.4 L Magnesium Level 2.2 Mean Corpuscular Hemoglobin 26.0 L Mean Corpuscular Hemoglobin Concent 32.2 Mean Corpuscular Volume 80.7 L Mean Platelet Volume 8.0 Monocytes # 0.1 L Monocytes % 1.1 Neutrophils # 4.0 Neutrophils % 84.3 H Nucleated Red Blood Cells # 0.0 Nucleated Red Blood Cells % 0.0 Phosphorus Level 5.3 H Platelet Count 286 Potassium Level 5.5 H Red Blood Count 4.74 Red Cell Distribution Width 16.0 H Sodium Level 136 Total Bilirubin 0.1 L Total Protein 6.8 White Blood Count 4.8 Medications Medications Current Medications Aspirin (Halfprin) 81 mg DAILY PO Last administered on 03/03/16 08:50; Admin Dose 81 MG; Start 03/01/16 at 09:00 Brimonidine Tartrate (Alphagan 0.2%) 1 drop Q8 BOTH EYES Last administered on 03/03/16 05:51; Admin Dose 1 DROP; Start 03/01/16 at 06:00 Clonidine (Catapres) 0.2 mg TID PO Last administered on 03/03/16 08:51; Admin Dose 0.2 MG; Start 03/01/16 at 09:00 Clopidogrel Bisulfate (plaVIX) 75 mg DAILY PO Last administered on 03/03/16 08:51; Admin Dose 75 MG; Start 03/01/16 at 09:00 Fentanyl (Duragesic 100 Mcg/Hr Patch) 1 patch Q72H TRANSDERM Last administered on 03/01/16 09:14; Admin Dose 1 PATCH; Start 03/01/16 at 09:00 Latanoprost (Xalatan) 1 drop QHS BOTH EYES Last administered on 03/02/16 21: 22; Admin Dose 1 DROP; Start 03/01/16 at 21:00 Mycophenolate Mofetil (Cellcept) 500 mg BID PO Last administered on 03/03/16 08:50; Admin Dose 500 MG; Start 03/01/16 at 09:00 Gabapentin (Neurontin) 300 mg Q8H PO Last administered on 03/03/16at 10:52; Admin Dose 300 MG; Start 03/01/16 at 02:00 Methylprednisolone Sodium Succinate (Solu-Medrol) 60 mg Q8H IV Last administered on 03/03/16 10:52; Admin Dose 60 MG; Start 03/01/16 at 02:00 Acetaminophen (Tylenol Tab) 650 mg Q4H PRN PO pain/fever; Start 03/01/16 at 01 :00 Ondansetron HCl (Zofran Inj) 4 mg Q4H PRN IV nausea; Start 03/01/16 at 01:00 Morphine Sulfate (morphine) 2 mg Q2H PRN IV pain Last administered on 11:42; Admin Dose 2 MG; Start 03/01/16 at 01:00 Hydralazine HCl (Apresoline) 25 mg Q6H PRN PO sbp>160; Start 03/01/16 at 01:00 Diltiazem HCl 30 mg 30 mg Q6H PO Last administered on 03/03/16at 08:50; Admin Dose 30 MG; Start 03/01/16 at 02:00 Levofloxacin/ Dextrose (Levaquin 250 Mg/ D5W 50 ml (Pmx)) 50 ml @ 50 mls/hr Q24H IVPB Last administered on 03/03/16at 05:51; Admin Dose 50 MLS/HR; Start 03/02/16 at 06:00 Miscellaneous Information 1 ea NOTE XX ; Start 03/01/16 at 02:00 Glucose (Glutose) 15 gm Q15M PRN PO DECREASED GLUCOSE; Start 03/01/16 at 02:00 Glucose (Glutose) 22.5 gm Q15M PRN PO DECREASED GLUCOSE; Start 03/01/16 at 02: 00 Dextrose (D50w Syringe) 25 ml Q15M PRN IV DECREASED GLUCOSE; Start 03/01/16 at 02:00 Dextrose (D50w Syringe) 50 ml Q15M PRN IV DECREASED GLUCOSE; Start 03/01/16 at 02:00 Glucagon (Glucagen) 1 mg Q15M PRN IM DECREASED GLUCOSE; Start 03/01/16 at 02: 00 Glucose (Glutose) 15 gm Q15M PRN BUCCAL DECREASED GLUCOSE; Start 03/01/16 at 02:00 Diagnostic Test (Pha) (Accucheck) 1 ea 02 XX Last administered on 03/03/16at 02 :53; Admin Dose 1 EA; Start 03/02/16 at 02:00 Apixaban (Eliquis) 5 mg BID PO Last administered on 03/03/16at 08:51; Admin Dose 5 MG; Start 03/02/16 at 21:00 Losartan Potassium (Cozaar) 50 mg BID PO Last administered on 03/03/16at 08:50 ; Admin Dose 50 MG; Start 03/03/16 at 09:00 Insulin Glargine (Lantus) 20 unit QHS SC Last administered on 03/02/16at 21:11 ; Admin Dose 20 UNIT; Start 03/02/16 at 21:00 TRACI GONSALEZ M.D. Mar 03, 2016 11:03
--- NOTE | 2016-03-03 11:38 | CONS ---
Date/Time of Note Date/Time of Note DATE: 03/03/16 TIME: 11:35 Consult Date/Type/Reason Admit Date/Time Feb 29, 2016 at 18:54 Initial Consult Date Type of Consultation: Pulmonary Subjective Patient stable this morning less shortness of breath Family at bedside Objective Vital Signs Date Time Temp Pulse Resp B/P Pulse Ox O2 Delivery O2 Flow Rate FiO2 03/03/16 09:03 71 14 98 Nasal Cannula 3.0 03/03/16 07:41 98.5 153/69 03/03/16 06:09 40 Intake and Output 03/02/16 03/02/16 03/03/16 15:00 23:00 07:00 Intake Total 170 ml 50 ml Balance 170 ml 50 ml PHYSICAL EXAMINATION: VITAL SIGNS: As above HEENT: Pupils are equal and reactive to light. Nasal cannula oxygen NECK: Supple, no JVD noted, no cervical adenopathy, no carotid bruits heard. LUNGS: Diminished breath sounds and few rhonchi. CARDIOVASCULAR: S1, S2 normal, irregular. ABDOMEN: Soft, obese, nontender. No organomegaly or masses noted. EXTREMITIES: No clubbing or cyanosis noted. 1+ edema present bilaterally. NEUROLOGICAL: Awake and responsive. Results/Medications Result Diagram: 03/03/16 0615 03/03/16 0615 Results 24 hrs Laboratory Tests Test 03/02/16 11:58 03/02/16 12:50 03/02/16 17:27 03/02/16 21:05 Bedside Glucose 255 H 269 H 293 H Free Thyroxine 1.38 Thyroid Stimulating Hormone (TSH) 0.280 L Test 03/03/16 02:08 03/03/16 06:15 03/03/16 08:14 Bedside Glucose 240 H 303 H Alanine Aminotransferase (ALT/SGPT) 32 Albumin 3.8 Albumin/Globulin Ratio 1.26 Alkaline Phosphatase 71 Anion Gap 20 H Aspartate Amino Transf (AST/SGOT) 18 Basophils # 0.0 Basophils % 0.2 Blood Morphology Comment Blood Urea Nitrogen 62 H Calcium Level 8.7 Carbon Dioxide Level 18 L Chloride Level 104 Creatinine 1.38 H Direct Bilirubin 0.00 Eosinophils # 0.0 Eosinophils % 0.0 Globulin 3.00 Glucose Level 251 H Hematocrit 38.2 Hemoglobin 12.3 Indirect Bilirubin 0.1 Lymphocytes # 0.7 L Lymphocytes % 14.4 L Magnesium Level 2.2 Mean Corpuscular Hemoglobin 26.0 L Mean Corpuscular Hemoglobin Concent 32.2 Mean Corpuscular Volume 80.7 L Mean Platelet Volume 8.0 Monocytes # 0.1 L Monocytes % 1.1 Neutrophils # 4.0 Neutrophils % 84.3 H Nucleated Red Blood Cells # 0.0 Nucleated Red Blood Cells % 0.0 Phosphorus Level 5.3 H Platelet Count 286 Potassium Level 5.5 H Red Blood Count 4.74 Red Cell Distribution Width 16.0 H Sodium Level 136 Total Bilirubin 0.1 L Total Protein 6.8 White Blood Count 4.8 Medications Current Medications Aspirin (Halfprin) 81 mg DAILY PO Last administered on 03/03/16 08:50; Admin Dose 81 MG; Start 03/01/16 at 09:00 Brimonidine Tartrate (Alphagan 0.2%) 1 drop Q8 BOTH EYES Last administered on 03/03/16 05:51; Admin Dose 1 DROP; Start 03/01/16 at 06:00 Clonidine (Catapres) 0.2 mg TID PO Last administered on 03/03/16 08:51; Admin Dose 0.2 MG; Start 03/01/16 at 09:00 Clopidogrel Bisulfate (plaVIX) 75 mg DAILY PO Last administered on 03/03/16 08:51; Admin Dose 75 MG; Start 03/01/16 at 09:00 Fentanyl (Duragesic 100 Mcg/Hr Patch) 1 patch Q72H TRANSDERM Last administered on 03/01/16 09:14; Admin Dose 1 PATCH; Start 03/01/16 at 09:00 Latanoprost (Xalatan) 1 drop QHS BOTH EYES Last administered on 03/02/16 21: 22; Admin Dose 1 DROP; Start 03/01/16 at 21:00 Mycophenolate Mofetil (Cellcept) 500 mg BID PO Last administered on 03/03/16 08:50; Admin Dose 500 MG; Start 03/01/16 at 09:00 Gabapentin (Neurontin) 300 mg Q8H PO Last administered on 03/03/16 10:52; Admin Dose 300 MG; Start 03/01/16 at 02:00 Methylprednisolone Sodium Succinate (Solu-Medrol) 60 mg Q8H IV Last administered on 03/03/16 10:52; Admin Dose 60 MG; Start 03/01/16 at 02:00 Acetaminophen (Tylenol Tab) 650 mg Q4H PRN PO pain/fever; Start 03/01/16 at 01 :00 Ondansetron HCl (Zofran Inj) 4 mg Q4H PRN IV nausea; Start 03/01/16 at 01:00 Morphine Sulfate (morphine) 2 mg Q2H PRN IV pain Last administered on at 11:42; Admin Dose 2 MG; Start 03/01/16 at 01:00 Hydralazine HCl (Apresoline) 25 mg Q6H PRN PO sbp>160; Start 03/01/16 at 01:00 Diltiazem HCl 30 mg 30 mg Q6H PO Last administered on 03/03/16at 08:50; Admin Dose 30 MG; Start 03/01/16 at 02:00 Levofloxacin/ Dextrose (Levaquin 250 Mg/ D5W 50 ml (Pmx)) 50 ml @ 50 mls/hr Q24H IVPB Last administered on 03/03/16at 05:51; Admin Dose 50 MLS/HR; Start 03/02/16 at 06:00 Miscellaneous Information 1 ea NOTE XX ; Start 03/01/16 at 02:00 Glucose (Glutose) 15 gm Q15M PRN PO DECREASED GLUCOSE; Start 03/01/16 at 02:00 Glucose (Glutose) 22.5 gm Q15M PRN PO DECREASED GLUCOSE; Start 03/01/16 at 02: 00 Dextrose (D50w Syringe) 25 ml Q15M PRN IV DECREASED GLUCOSE; Start 03/01/16 at 02:00 Dextrose (D50w Syringe) 50 ml Q15M PRN IV DECREASED GLUCOSE; Start 03/01/16 at 02:00 Glucagon (Glucagen) 1 mg Q15M PRN IM DECREASED GLUCOSE; Start 03/01/16 at 02: 00 Glucose (Glutose) 15 gm Q15M PRN BUCCAL DECREASED GLUCOSE; Start 03/01/16 at 02:00 Diagnostic Test (Pha) (Accucheck) 1 ea 02 XX Last administered on 03/03/16at 02 :53; Admin Dose 1 EA; Start 03/02/16 at 02:00 Apixaban (Eliquis) 5 mg BID PO Last administered on 03/03/16at 08:51; Admin Dose 5 MG; Start 03/02/16 at 21:00 Losartan Potassium (Cozaar) 50 mg BID PO Last administered on 03/03/16at 08:50 ; Admin Dose 50 MG; Start 03/03/16 at 09:00 Insulin Glargine (Lantus) 25 unit QHS SC ; Start 03/03/16 at 21:00 Bisacodyl (Dulcolax Supp) 10 mg DAILY PRN SD CONSTIPATION; Start 03/03/16 at 11:30 Assessment/Plan Chief Complaint/Hosp Course IMPRESSION: An 85-year-old female with: 1. Acute hypoxemic respiratory failure. Likely secondary to acute bronchitis and possible pulmonary edema 2. Chronic obstructive pulmonary disease exacerbation. 3. Bronchitis. As above 4. Metabolic acidosis. 5. History of diabetes. 6. History of hypertension. 7. Atrial fibrillation. 8. Coronary artery disease. RECOMMENDATIONS: 1. BiPAP p.r.n. 2. Check cultures. 3. Antibiotics. 4. Bronchodilators. 5. Oxygen. 6. Followup chest x-ray. Shows mild pulmonary edema 7. Check Dopplers of the lower extremity venous to rule out DVT. No evidence of deep vein thrombosis Problems: SHIVA PERES MD, [facility] Mar 03, 2016 11:38
[2016-03-03] MEDS: CLOTRIMAZOLE 1% 30 GM CR TOP SCH ×2 (13:29→22:05)
[2016-03-03] MEDS ORDERED: INSULIN GLARGINE [LANtus] 3 ML PEN SC SCH (21:00)
[2016-03-03] MEDS: LATANOPROST 0.005% 2.5 ML OPH BOTH EYES SCH (21:00)
[2016-03-03] MEDS: BISACODYL 10 MG SUPP PR PRN (22:11)
[2016-03-04] VITALS (12 sets, daily range): BP systolic 118–179; BP diastolic 52–70; PULSE 80–125; RESP 16–20
[2016-03-04] MEDS: ALBUTEROL/IPRATROPIUM (NEB) 3 ML AMP HHN SCH ×4 (01:01→20:35)
[2016-03-04] MEDS: METHYLPREDNISOLONE 125 MG INJ IV SCH ×3 (02:28→18:27)
[2016-03-04] MEDS: GABAPENTIN 300 MG CAP PO SCH ×3 (02:29→18:26)
[2016-03-04] MEDS: DILTIAZEM 30 MG TAB PO SCH ×4 (02:29→20:46)
[2016-03-04] MEDS: ACCUCHECK AT 2AM (Patients on SS coverage) XX SCH (02:34)
[2016-03-04] MEDS: LEVOFLOXACIN 250MG/D5W (PMX) 50 ML IVPB SCH (06:09)
[2016-03-04] MEDS: BRIMONIDINE 0.2% 5 ML BTL BOTH EYES SCH ×3 (06:09→22:00)
[2016-03-04 07:31] LABS: CREATININE 1.47 mg/dl (0.44-1.00)
[2016-03-04 07:33] LABS: CALCIUM 8.5 mg/dl (8.4-10.2); MAGNESIUM 2.3 mg/dl (1.7-2.5)
[2016-03-04 07:48] LABS: T3 UPTAKE 42.1 % (23.5-40.5)
[2016-03-04] MEDS: INSULIN ASPART [NOVOLOG] 3 ML PEN SC SCH ×7 (08:32→22:09)
[2016-03-04] MEDS: APIXABAN 5 MG TABLET PO SCH ×2 (08:52→22:00)
[2016-03-04] MEDS: MYCOPHENOLATE 250 MG CAP PO SCH ×2 (08:52→22:02)
[2016-03-04] MEDS: CLOPIDOGREL 75 MG TAB PO SCH (08:53)
[2016-03-04] MEDS: ASPIRIN (EC) 81 MG TAB PO SCH (08:53)
[2016-03-04] MEDS: LOSARTAN 50 MG TAB PO SCH ×2 (08:53→22:01)
[2016-03-04] MEDS: CLOTRIMAZOLE 1% 30 GM CR TOP SCH ×2 (08:54→22:00)
[2016-03-04] MEDS ORDERED: FUROSEMIDE 40 MG INJ IV ONE (12:30)
[2016-03-04] MEDS ORDERED: FUROSEMIDE 40 MG INJ ONE (12:31)
--- NOTE | 2016-03-04 13:26 | RADRPT ---
PROCEDURE: XR Chest. CLINICAL INDICATION: Shortness of breath. TECHNIQUE: Single frontal view. COMPARISON: 03/02/2016. FINDINGS: There is mild atelectasis at the lung bases. The lungs are otherwise clear. The heart size is normal. There is calcification in the aorta consistent with atherosclerosis. There is no pleural effusion. There is no pneumothorax. IMPRESSION: 1. Mild atelectasis at the lung bases. 2. Atherosclerosis. 3. Otherwise normal chest x-ray. 4. No change from 03/02/2016. RPTAT: QQ .Jim Calloway MD, Date Time Electronically viewed and signed by .Jim Calloway MD, on 03/04/2016 13:26 .R/
--- NOTE | 2016-03-04 13:45 | RADRPT ---
PROCEDURE: XR Abdomen. CLINICAL INDICATION: Abdomen pain. TECHNIQUE: Two views. AP supine and AP erect. COMPARISON: None. FINDINGS: There is no free air. The bowel gas pattern is normal with no evidence of obstruction. Surgical clips are present in the right upper quadrant of the abdomen. There are no abnormal calcifications overlying the urinary tracts. Vascular calcifications are prese nt consistent with atherosclerosis. There are degenerative changes of the spine. There has been vertebroplasty at L3. IMPRESSION: 1. Prior right upper quadrant surgery. 2. Vertebroplasty at L3. 3. No evidence of bowel obstruction. 4. Atherosclerosis. RPTAT: QQ .Jim Calloway MD, MD Date Time Electronically viewed and signed by .Jim Calloway MD, on 03/04/2016 13:44 .R/
--- NOTE | 2016-03-04 15:16 | CONS ---
Date/Time of Note Date/Time of Note DATE: 03/04/16 TIME: 15:13 Consult Date/Type/Reason Admit Date/Time Feb 29, 2016 at 18:54 Type of Consultation: Pulmonary Subjective Increasing shortness of breath this morning requesting to go back to noninvasive positive pressure ventilation Patient now on BiPAP eyes open appears comfortable no accessory muscle use Currently she remains hemodynamically stable Repeat chest x-ray shows mild bibasilar atelectasis but no significant infiltrates or effusions Objective Vital Signs Date Time Temp Pulse Resp B/P Pulse Ox O2 Delivery O2 Flow Rate FiO2 03/04/16 12:21 125 03/04/16 12:20 99 40 03/04/16 11:35 98.8 16 179/52 03/04/16 04:05 Nasal Cannula 3.0 Intake and Output 03/03/16 03/03/16 03/04/16 15:00 23:00 07:00 Intake Total 120 ml 720 ml 300 ml Balance 120 ml 720 ml 300 ml PHYSICAL EXAMINATION: VITAL SIGNS: As above elderly lady sitting up in bed comfortable no acute distress HEENT: Pupils are equal and reactive to light. Nasal cannula oxygen NECK: Supple, no JVD noted, no cervical adenopathy, no carotid bruits heard. LUNGS: Diminished breath sounds and few rhonchi. CARDIOVASCULAR: S1, S2 normal, irregular. ABDOMEN: Soft, obese, nontender. No organomegaly or masses noted. EXTREMITIES: No clubbing or cyanosis noted. 1+ edema present bilaterally. NEUROLOGICAL: Awake and responsive. Results/Medications Result Diagram: 03/03/16 0615 03/04/16 0635 Results 24 hrs Laboratory Tests Test 03/03/16 17:17 03/03/16 22:23 03/04/16 02:33 03/04/16 06:35 Bedside Glucose 254 H 290 H 257 H Anion Gap 15 Blood Urea Nitrogen 71 H Calcium Level 8.5 Carbon Dioxide Level 25 Chloride Level 102 Creatinine 1.47 H Free Thyroxine 1.33 Glucose Level 239 H Magnesium Level 2.3 Phosphorus Level 5.0 H Potassium Level 5.0 Sodium Level 137 Thyroxine (T4) 5.9 Triiodothyronine (T3) Uptake 42.1 H Test 03/04/16 08:27 03/04/16 12:27 Bedside Glucose 256 H 387 H Medications Current Medications Aspirin (Halfprin) 81 mg DAILY PO Last administered on 03/04/16 08:53; Admin Dose 81 MG; Start 03/01/16 at 09:00 Brimonidine Tartrate (Alphagan 0.2%) 1 drop Q8 BOTH EYES Last administered on 03/04/16 14:35; Admin Dose 1 DROP; Start 03/01/16 at 06:00 Clonidine (Catapres) 0.2 mg TID PO Last administered on 03/04/16 14:35; Admin Dose 0.2 MG; Start 03/01/16 at 09:00 Clopidogrel Bisulfate (plaVIX) 75 mg DAILY PO Last administered on 03/04/16 08:53; Admin Dose 75 MG; Start 03/01/16 at 09:00 Fentanyl (Duragesic 100 Mcg/Hr Patch) 1 patch Q72H TRANSDERM Last administered on 03/04/16 09:36; Admin Dose 1 PATCH; Start 03/01/16 at 09:00 Latanoprost (Xalatan) 1 drop QHS BOTH EYES Last administered on 03/02/16 21: 22; Admin Dose 1 DROP; Start 03/01/16 at 21:00 Mycophenolate Mofetil (Cellcept) 500 mg BID PO Last administered on 03/04/16 08:52; Admin Dose 500 MG; Start 03/01/16 at 09:00 Gabapentin (Neurontin) 300 mg Q8H PO Last administered on 03/04/16 08:53; Admin Dose 300 MG; Start 03/01/16 at 02:00 Methylprednisolone Sodium Succinate (Solu-Medrol) 60 mg Q8H IV Last administered on 03/04/16 08:52; Admin Dose 60 MG; Start 03/01/16 at 02:00 Acetaminophen (Tylenol Tab) 650 mg Q4H PRN PO pain/fever; Start 03/01/16 at 01 :00 Ondansetron HCl (Zofran Inj) 4 mg Q4H PRN IV nausea; Start 03/01/16 at 01:00 Morphine Sulfate (morphine) 2 mg Q2H PRN IV pain Last administered on 11:42; Admin Dose 2 MG; Start 03/01/16 at 01:00 Hydralazine HCl (Apresoline) 25 mg Q6H PRN PO sbp>160; Start 03/01/16 at 01:00 Diltiazem HCl 30 mg 30 mg Q6H PO Last administered on 03/04/16at 14:34; Admin Dose 30 MG; Start 03/01/16 at 02:00 Levofloxacin/ Dextrose (Levaquin 250 Mg/ D5W 50 ml (Pmx)) 50 ml @ 50 mls/hr Q24H IVPB Last administered on 03/04/16at 06:09; Admin Dose 50 MLS/HR; Start 03/02/16 at 06:00 Miscellaneous Information 1 ea NOTE XX ; Start 03/01/16 at 02:00 Glucose (Glutose) 15 gm Q15M PRN PO DECREASED GLUCOSE; Start 03/01/16 at 02:00 Glucose (Glutose) 22.5 gm Q15M PRN PO DECREASED GLUCOSE; Start 03/01/16 at 02: 00 Dextrose (D50w Syringe) 25 ml Q15M PRN IV DECREASED GLUCOSE; Start 03/01/16 at 02:00 Dextrose (D50w Syringe) 50 ml Q15M PRN IV DECREASED GLUCOSE; Start 03/01/16 at 02:00 Glucagon (Glucagen) 1 mg Q15M PRN IM DECREASED GLUCOSE; Start 03/01/16 at 02: 00 Glucose (Glutose) 15 gm Q15M PRN BUCCAL DECREASED GLUCOSE; Start 03/01/16 at 02:00 Diagnostic Test (Pha) (Accucheck) 1 ea 02 XX Last administered on 03/04/16at 02 :34; Admin Dose 1 EA; Start 03/02/16 at 02:00 Apixaban (Eliquis) 5 mg BID PO Last administered on 03/04/16at 08:52; Admin Dose 5 MG; Start 03/02/16 at 21:00 Losartan Potassium (Cozaar) 50 mg BID PO Last administered on 03/04/16at 08:53 ; Admin Dose 50 MG; Start 03/03/16 at 09:00 Insulin Glargine (Lantus) 25 unit QHS SC Last administered on 03/03/16at 22:30 ; Admin Dose 25 UNIT; Start 03/03/16 at 21:00 Bisacodyl (Dulcolax Supp) 10 mg DAILY PRN [place] CONSTIPATION Last administered on 03/03/16at 22:11; Admin Dose 10 MG; Start 03/03/16 at 11:30 Clotrimazole (Lotrimin Cr) 1 applic BID TOP Last administered on 03/04/16at 08: 54; Admin Dose 1 APPLIC; Start 03/03/16 at 13:30 Assessment/Plan Chief Complaint/Hosp Course IMPRESSION: An 85-year-old female with: 1. Acute hypoxemic respiratory failure. Likely secondary to acute bronchitis and possible pulmonary edema. Differential does include acute pulmonary embolus 2. Chronic obstructive pulmonary disease exacerbation. 3. Bronchitis. As above 4. Metabolic acidosis, clinically improved 5. History of diabetes. 6. History of hypertension. 7. Atrial fibrillation. 8. Coronary artery disease. RECOMMENDATIONS: 1. BiPAP p.r.n. 2. Check cultures. 3. Antibiotics. 4. Bronchodilators. 5. Oxygen. 6. Followup chest x-ray. Shows mild pulmonary edema 7. Lower extremity Dopplers negative for deep vein thrombosis, CT chest to evaluate lung parenchyma Problems: SHIVA PERES MD, [facility] Mar 04, 2016 15:16
--- NOTE | 2016-03-04 19:53 | PN ---
Date/Time of Note Date/Time of Note DATE: 03/04/16 TIME: 19:41 Assessment/Plan VTE Prophylaxis VTE Prophylaxis Intervention: other (Eliquis) Lines/Catheters IV Catheter Type (from [facility]): Saline Lock Urinary Cath still in place: No Assessment/Plan Assessment/Plan Assessment/Plan 1. Hospital day 3 for this 85 yo woman, never-smoker, with acute respiratory failure. Still requiring BiPAP tonight. She has a history of asthma, but no wheezing now on exam. Lower extremity Dopplers were negative for DVT. Chronic immunosuppression on CellCept for her pemphigoid; concern about possible PJP pneumonia that is not evident on the CXR. * My thanks to Dr. Ornelas; continue BiPAP only as needed * Continue nebulizers, steroids, intravenous Levaquin * Add IV Bactrim DS for PJP empiric therapy, given the unexplained hypoxia. 2. Paroxysmal atrial fibrillation, with rapid rate to 160 on telemetry yesterday. Much better-controlled now on cardizem PO. No known coronary disease history. Echo Saturday showed EF 55%, with no wall motion abnormalities or josse valvular disease. She has a history of minor stroke. She appears mildly hyperthyroid, with elevated T3 and low TSH. * Continue Eliquis. * Continue Cardizem 3. Diabetes Mellitus: HgbA1c indicate chronic hyperglycemia at 8.2%. Sugars worse today, despite starting her yesterday on pre-prandial Novolog. * Increase preprandial Novolog to 8-units * Boost bedtime Lantus to 50 units SQ 4. Severe hypertension on admission, slightly improved now with SBP 143, 151, 173 today. * Continue Losartan, clonidine, and Norvasc. 5. Chronic pemphigoid, treated with CellCept. Thus chronic immunosuppression. 6. Prophylaxis: Eliquis for atrial fibrillation will also cover for DVT prophylaxis. Protonix for GI protection 7. Disposition: Continue BiPAP; pulmonary consultation. Joey Gonsalez MD PhD [phone] Subjective 24 Hr Interval Summary Free Text/Dictation Caregiver at bedside. Patient still weak. Appetite poorer than usual (robust as a rule), but she is eating without difficulty. Concerned mostly about inability to stool, with only a small stool last night following a Dulcolax suppository. Exam/Review of Systems Vital Signs Vitals Vital Signs Date Time Temp Pulse Resp B/P Pulse Ox O2 Delivery O2 Flow Rate FiO2 03/04/16 16:22 106 03/04/16 15:18 97.7 16 143/67 98 03/04/16 14:17 3.0 03/04/16 14:17 Nasal Cannula 03/04/16 12:20 40 Intake and Output 03/03/16 03/03/16 03/04/16 15:00 23:00 07:00 Intake Total 120 ml 720 ml 300 ml Balance 120 ml 720 ml 300 ml Exam Constitutional: Moderately distressed-looking, but not dyspneic at rest on 2L/ NC. Respiratory: No wheezing, shallow breathing. Cardiovascular: Irregular rhythm, normal rate, no murmur, good perfusion. Gastrointestinal: non-tender, soft, moderately distended and tympanic, no rebound or guarding. Musculoskeletal: Normal extremities to inspection, other edema, clubbing or cyanosis Extremities: Symmetric pulses. Neurological: RESEARCH AND DEVELOPMENT ENGINEER II-XII intact, motor/sensation intact, downgoing toes. Results Result Diagram: 03/03/16 0615 03/04/16 0635 Results 24 hrs Laboratory Tests Test 03/03/16 22:23 03/04/16 02:33 03/04/16 06:35 03/04/16 08:27 Bedside Glucose 290 H 257 H 256 H Anion Gap 15 Blood Urea Nitrogen 71 H Calcium Level 8.5 Carbon Dioxide Level 25 Chloride Level 102 Creatinine 1.47 H Free Thyroxine 1.33 Glucose Level 239 H Magnesium Level 2.3 Phosphorus Level 5.0 H Potassium Level 5.0 Sodium Level 137 Thyroxine (T4) 5.9 Triiodothyronine (T3) Uptake 42.1 H Test 03/04/16 12:27 03/04/16 18:02 Bedside Glucose 387 H 265 H Medications Medications Current Medications Aspirin (Halfprin) 81 mg DAILY PO Last administered on 03/04/16at 08:53; Admin Dose 81 MG; Start 03/01/16 at 09:00 Brimonidine Tartrate (Alphagan 0.2%) 1 drop Q8 BOTH EYES Last administered on 03/04/16at 14:35; Admin Dose 1 DROP; Start 03/01/16 at 06:00 Clonidine (Catapres) 0.2 mg TID PO Last administered on 03/04/16at 14:35; Admin Dose 0.2 MG; Start 03/01/16 at 09:00 Clopidogrel Bisulfate (plaVIX) 75 mg DAILY PO Last administered on 03/04/16 08:53; Admin Dose 75 MG; Start 03/01/16 at 09:00 Fentanyl (Duragesic 100 Mcg/Hr Patch) 1 patch Q72H TRANSDERM Last administered on 03/04/16 09:36; Admin Dose 1 PATCH; Start 03/01/16 at 09:00 Latanoprost (Xalatan) 1 drop QHS BOTH EYES Last administered on 03/02/16 21: 22; Admin Dose 1 DROP; Start 03/01/16 at 21:00 Mycophenolate Mofetil (Cellcept) 500 mg BID PO Last administered on 03/04/16 08:52; Admin Dose 500 MG; Start 03/01/16 at 09:00 Gabapentin (Neurontin) 300 mg Q8H PO Last administered on 03/04/16 18:26; Admin Dose 300 MG; Start 03/01/16 at 02:00 Methylprednisolone Sodium Succinate (Solu-Medrol) 60 mg Q8H IV Last administered on 03/04/16 18:27; Admin Dose 60 MG; Start 03/01/16 at 02:00 Acetaminophen (Tylenol Tab) 650 mg Q4H PRN PO pain/fever; Start 03/01/16 at 01 :00 Ondansetron HCl (Zofran Inj) 4 mg Q4H PRN IV nausea; Start 03/01/16 at 01:00 Morphine Sulfate (morphine) 2 mg Q2H PRN IV pain Last administered on 11:42; Admin Dose 2 MG; Start 03/01/16 at 01:00 Hydralazine HCl (Apresoline) 25 mg Q6H PRN PO sbp>160; Start 03/01/16 at 01:00 Diltiazem HCl 30 mg 30 mg Q6H PO Last administered on 03/04/16 14:34; Admin Dose 30 MG; Start 03/01/16 at 02:00 Levofloxacin/ Dextrose (Levaquin 250 Mg/ D5W 50 ml (Pmx)) 50 ml @ 50 mls/hr Q24H IVPB Last administered on 03/04/16 06:09; Admin Dose 50 MLS/HR; Start 03/02/16 at 06:00 Miscellaneous Information 1 ea NOTE XX ; Start 03/01/16 at 02:00 Glucose (Glutose) 15 gm Q15M PRN PO DECREASED GLUCOSE; Start 03/01/16 at 02:00 Glucose (Glutose) 22.5 gm Q15M PRN PO DECREASED GLUCOSE; Start 03/01/16 at 02: 00 Dextrose (D50w Syringe) 25 ml Q15M PRN IV DECREASED GLUCOSE; Start 03/01/16 at 02:00 Dextrose (D50w Syringe) 50 ml Q15M PRN IV DECREASED GLUCOSE; Start 03/01/16 at 02:00 Glucagon (Glucagen) 1 mg Q15M PRN IM DECREASED GLUCOSE; Start 03/01/16 at 02: 00 Glucose (Glutose) 15 gm Q15M PRN BUCCAL DECREASED GLUCOSE; Start 03/01/16 at 02:00 Diagnostic Test (Pha) (Accucheck) 1 ea 02 XX Last administered on 03/04/16at 02 :34; Admin Dose 1 EA; Start 03/02/16 at 02:00 Apixaban (Eliquis) 5 mg BID PO Last administered on 03/04/16at 08:52; Admin Dose 5 MG; Start 03/02/16 at 21:00 Losartan Potassium (Cozaar) 50 mg BID PO Last administered on 03/04/16at 08:53 ; Admin Dose 50 MG; Start 03/03/16 at 09:00 Insulin Glargine (Lantus) 25 unit QHS SC Last administered on 03/03/16at 22:30 ; Admin Dose 25 UNIT; Start 03/03/16 at 21:00 Bisacodyl (Dulcolax Supp) 10 mg DAILY PRN [place] CONSTIPATION Last administered on 03/03/16at 22:11; Admin Dose 10 MG; Start 03/03/16 at 11:30 Clotrimazole (Lotrimin Cr) 1 applic BID TOP Last administered on 03/04/16at 08: 54; Admin Dose 1 APPLIC; Start 03/03/16 at 13:30 TRACI GONSALEZ M.D. Mar 04, 2016 19:53
[2016-03-04] MEDS: LATANOPROST 0.005% 2.5 ML OPH BOTH EYES SCH (22:00)
[2016-03-04] MEDS: INSULIN GLARGINE [LANtus] 3 ML PEN SC SCH (22:08)
[2016-03-04] MEDS: TRIMETHOPRIM/SULFAMETHOXAZOLE 10 ML in DEXTROSE 5% 250 ML IVPB SCH (22:23)
[2016-03-05] VITALS (14 sets, daily range): BP systolic 100–136; BP diastolic 50–60; PULSE 90–123; RESP 18–20
[2016-03-05] MEDS: ALBUTEROL/IPRATROPIUM (NEB) 3 ML AMP HHN SCH ×4 (02:03→20:39)
[2016-03-05] MEDS: GABAPENTIN 300 MG CAP PO SCH ×3 (02:34→18:36)
[2016-03-05] MEDS: ACCUCHECK AT 2AM (Patients on SS coverage) XX SCH (02:34)
[2016-03-05] MEDS: DILTIAZEM 30 MG TAB PO SCH ×4 (02:34→20:06)
[2016-03-05] MEDS: BRIMONIDINE 0.2% 5 ML BTL BOTH EYES SCH ×3 (05:39→21:30)
[2016-03-05] MEDS: LEVOFLOXACIN 250MG/D5W (PMX) 50 ML IVPB SCH ×2 (05:39→16:38)
[2016-03-05] MEDS: TRIMETHOPRIM/SULFAMETHOXAZOLE 10 ML in DEXTROSE 5% 250 ML IVPB SCH ×3 (06:54→23:11)
[2016-03-05] MEDS: INSULIN ASPART [NOVOLOG] 3 ML PEN SC SCH ×7 (08:34→21:39)
[2016-03-05] MEDS: LOSARTAN 50 MG TAB PO SCH ×2 (08:37→21:33)
[2016-03-05] MEDS: METHYLPREDNISOLONE 125 MG INJ IV SCH (08:37)
[2016-03-05] MEDS: MYCOPHENOLATE 250 MG CAP PO SCH ×2 (08:37→21:33)
[2016-03-05] MEDS: APIXABAN 5 MG TABLET PO SCH ×2 (08:38→21:23)
[2016-03-05] MEDS: CLOTRIMAZOLE 1% 30 GM CR TOP SCH ×2 (09:02→21:30)
[2016-03-05] MEDS ORDERED: MAGNESIUM HYDROXIDE 30ML CUP PO PRN (10:30)
--- NOTE | 2016-03-05 10:30 | PN ---
Date/Time of Note Date/Time of Note DATE: 03/05/16 TIME: 10:11 Assessment/Plan VTE Prophylaxis VTE Prophylaxis Intervention: other (eliquis ) Lines/Catheters IV Catheter Type (from Nrs): Saline Lock Urinary Cath still in place: No Assessment/Plan Assessment/Plan 85 yo female with: 1. Acute Respiratory failure, improved and now on 3L NC. ? Bronchitis/URI/ PNA with reported history of Asthma and concerns for PJP raised this weekend as patient has been on cellcept chronically Pulmonary, Dr Ornelas following Continue nebulizers, steroids taper, Levaquin and Bactrim for now. Repeat Labs today and hold off CTA chest as patient with declined renal function yesterday and on Eliquis already 2. Paroxysmal A fib, no CAD per family but hx of Minor CVA ... patient should be now on anticoagulation given findings of A fib, family agreeable and will d/ c Plavix. Patient not on ASA as outpatient per Family so will also d/c Continue Cardizem and Eliquis. 3. Diabetes Mellitus: Continue Accu-Cheks and sliding scale. Continue Lantus at higher dose for now as patient with elevated BG. 4. Severe Hypertension: continue Losartan, Clonidine and Norvasc, maximizing Cardizem as tolerated for HR control and d/c HCTZ for now, if needs diuresis, use Lasix or Bumex. 5. Pemphigoid disease per family, chronic for years and has been on Cellcept 6. Chronic Pain: continue fentanyl patch Prophylaxis: Continue Eliquis given A fib, PPI for GI ppx Disposition: Follow up Pulmonary recs today and repeat labs. Subjective 24 Hr Interval Summary Free Text/Dictation Patent off BiPAP for now, only used as needed and currently on 3LNC, more awake Awaiting AM labs Afebrile Exam/Review of Systems Vital Signs Vitals Vital Signs Date Time Temp Pulse Resp B/P Pulse Ox O2 Delivery O2 Flow Rate FiO2 03/05/16 08:44 90 03/05/16 08:05 16 99 Nasal Cannula 3.0 03/05/16 07:07 98.3 122/58 03/05/16 02:03 32 Intake and Output 03/04/16 03/04/16 03/05/16 15:00 23:00 07:00 Intake Total 50 ml 900 ml 310 ml Balance 50 ml 900 ml 310 ml Exam Constitutional: alert, frail, obese, oriented Respiratory: diminished breath sounds (bases ), normal air movement Cardiovascular: irregular rhythm (atrial fibrillation ) Gastrointestinal: non-tender, soft Musculoskeletal: nl extremities to inspection Extremities: normal pulses, other (no edema) Neurological: STUDIO ASSISTANT II-XII intact, lethargic, nl mental status, nl speech Results Result Diagram: 03/03/16 0615 03/04/16 0635 Results 24 hrs Laboratory Tests Test 03/04/16 12:27 03/04/16 18:02 03/04/16 22:03 03/05/16 02:39 Bedside Glucose 387 H 265 H 230 H 296 H Test 03/05/16 08:04 Bedside Glucose 400 H Medications Medications Current Medications Brimonidine Tartrate (Alphagan 0.2%) 1 drop Q8 BOTH EYES Last administered on 03/05/16at 05:39; Admin Dose 1 DROP; Start 03/01/16 at 06:00 Clonidine (Catapres) 0.2 mg TID PO Last administered on 03/05/16 08:37; Admin Dose 0.2 MG; Start 03/01/16 at 09:00 Fentanyl (Duragesic 100 Mcg/Hr Patch) 1 patch Q72H TRANSDERM Last administered on 03/04/16 09:36; Admin Dose 1 PATCH; Start 03/01/16 at 09:00 Latanoprost (Xalatan) 1 drop QHS BOTH EYES Last administered on 03/04/16at 22: 00; Admin Dose 1 DROP; Start 03/01/16 at 21:00 Mycophenolate Mofetil (Cellcept) 500 mg BID PO Last administered on 03/05/16at 08:37; Admin Dose 500 MG; Start 03/01/16 at 09:00 Gabapentin (Neurontin) 300 mg Q8H PO Last administered on 03/05/16 02:34; Admin Dose 300 MG; Start 03/01/16 at 02:00 Acetaminophen (Tylenol Tab) 650 mg Q4H PRN PO pain/fever; Start 03/01/16 at 01 :00 Ondansetron HCl (Zofran Inj) 4 mg Q4H PRN IV nausea; Start 03/01/16 at 01:00 Morphine Sulfate (morphine) 2 mg Q2H PRN IV pain Last administered on at 11:42; Admin Dose 2 MG; Start 03/01/16 at 01:00 Hydralazine HCl (Apresoline) 25 mg Q6H PRN PO sbp>160; Start 03/01/16 at 01:00 Diltiazem HCl 30 mg 30 mg Q6H PO Last administered on 03/05/16at 08:36; Admin Dose 30 MG; Start 03/01/16 at 02:00 Levofloxacin/ Dextrose (Levaquin 250 Mg/ D5W 50 ml (Pmx)) 50 ml @ 50 mls/hr Q24H IVPB Last administered on 03/05/16at 05:39; Admin Dose 50 MLS/HR; Start 03/02/16 at 06:00 Miscellaneous Information 1 ea NOTE XX ; Start 03/01/16 at 02:00 Glucose (Glutose) 15 gm Q15M PRN PO DECREASED GLUCOSE; Start 03/01/16 at 02:00 Glucose (Glutose) 22.5 gm Q15M PRN PO DECREASED GLUCOSE; Start 03/01/16 at 02: 00 Dextrose (D50w Syringe) 25 ml Q15M PRN IV DECREASED GLUCOSE; Start 03/01/16 at 02:00 Dextrose (D50w Syringe) 50 ml Q15M PRN IV DECREASED GLUCOSE; Start 03/01/16 at 02:00 Glucagon (Glucagen) 1 mg Q15M PRN IM DECREASED GLUCOSE; Start 03/01/16 at 02: 00 Glucose (Glutose) 15 gm Q15M PRN BUCCAL DECREASED GLUCOSE; Start 03/01/16 at 02:00 Diagnostic Test (Pha) (Accucheck) 1 ea 02 XX Last administered on 03/05/16at 02 :34; Admin Dose 1 EA; Start 03/02/16 at 02:00 Apixaban (Eliquis) 5 mg BID PO Last administered on 03/05/16at 08:38; Admin Dose 5 MG; Start 03/02/16 at 21:00 Losartan Potassium (Cozaar) 50 mg BID PO Last administered on 03/05/16at 08:37 ; Admin Dose 50 MG; Start 03/03/16 at 09:00 Bisacodyl (Dulcolax Supp) 10 mg DAILY PRN [place] CONSTIPATION Last administered on 03/03/16at 22:11; Admin Dose 10 MG; Start 03/03/16 at 11:30 Clotrimazole (Lotrimin Cr) 1 applic BID TOP Last administered on 03/05/16at 09: 02; Admin Dose 1 APPLIC; Start 03/03/16 at 13:30 Insulin Glargine (Lantus) 40 unit QHS SC Last administered on 03/04/16at 22:08 ; Admin Dose 40 UNIT; Start 03/04/16 at 21:00 Methylprednisolone Sodium Succinate 60 mg 60 mg DAILY IV Last administered on 03/05/16at 08:37; Admin Dose 60 MG; Start 03/05/16 at 09:00 Trimethoprim/ Sulfamethoxazole/ Dextrose (Bactrim/D5W) 260 ml @ 173.333 mls/hr Q8 IVPB Last administered on 03/05/16at 06:54; Admin Dose 173.333 MLS/HR; Start 03/04/16 at 22:00 AISHA TINEO Mar 05, 2016 10:21
[2016-03-05] MEDS: DOCUSATE SODIUM 100 MG CAP PO SCH ×2 (10:50→21:33)
[2016-03-05 11:50] LABS: HEMATOCRIT 33.6 % (37.0-47.0); HEMOGLOBIN 10.9 g/dl (12.0-16.0); LYMPHOCYTES # 0.3 10^3/ul (0.8-2.9); MEAN CORPUSCULAR HEMOGLOBIN 26.1 pg (29.0-33.0); MEAN CORPUSCULAR HGB CONC 32.5 g/dl (32.0-37.0); MEAN CORPUSCULAR VOLUME 80.2 fl (82.0-101.0); MEAN PLATELET VOLUME 7.8 fl (7.4-10.4); MONOCYTE # 0.2 10^3/ul (0.3-0.9); MONOCYTES % 3.9 % (0.0-11.0); NEUTROPHIL # 4.2 10^3/ul (1.6-7.5); NEUTROPHILS % 90.1 % (39.0-77.0); PLATELET COUNT 258 10^3/UL (140-440); RED BLOOD COUNT 4.19 10^6/ul (4.20-5.40); RED CELL DISTRIBUTION WIDTH 15.6 % (11.5-14.5); UNCORRECTED WBC 4.7 10^3/ul (4.8-10.8); WHITE BLOOD COUNT 4.7 10^3/ul (4.8-10.8)
[2016-03-05 11:52] LABS: CONDITION 1; LH ANALYZER COMMENTS 1
[2016-03-05 12:04] LABS: POTASSIUM 4.4 mmol/L (3.5-5.1)
[2016-03-05 12:07] LABS: CALCIUM 8.2 mg/dl (8.4-10.2); CREATININE 1.65 mg/dl (0.44-1.00)
--- NOTE | 2016-03-05 14:57 | CONS ---
Date/Time of Note Date/Time of Note DATE: 03/05/16 TIME: 14:55 Consult Date/Type/Reason Admit Date/Time Feb 29, 2016 at 18:54 Type of Consultation: Pulmonary Subjective Patient better today off BiPAP Family at bedside feeding patient No respiratory distress however occasional audible rhonchi Objective Vital Signs Date Time Temp Pulse Resp B/P Pulse Ox O2 Delivery O2 Flow Rate FiO2 03/05/16 12:19 99 03/05/16 11:37 98.5 18 100/55 97 03/05/16 08:05 Nasal Cannula 3.0 03/05/16 02:03 32 Intake and Output 03/04/16 03/04/16 03/05/16 15:00 23:00 07:00 Intake Total 50 ml 900 ml 310 ml Balance 50 ml 900 ml 310 ml PHYSICAL EXAMINATION: VITAL SIGNS: As above elderly lady sitting up in bed comfortable no acute distress HEENT: Pupils are equal and reactive to light. Nasal cannula oxygen NECK: Supple, no JVD noted, no cervical adenopathy, no carotid bruits heard. LUNGS: Diminished breath sounds and few rhonchi. CARDIOVASCULAR: S1, S2 normal, irregular. ABDOMEN: Soft, obese, nontender. No organomegaly or masses noted. EXTREMITIES: No clubbing or cyanosis noted. 1+ edema present bilaterally. NEUROLOGICAL: Awake and responsive. Results/Medications Result Diagram: 03/05/16 1123 03/05/16 1123 Results 24 hrs Laboratory Tests Test 03/04/16 18:02 03/04/16 22:03 03/05/16 02:39 03/05/16 08:04 Bedside Glucose 265 H 230 H 296 H 400 H Test 03/05/16 11:23 03/05/16 11:56 Anion Gap 16 Basophils # 0.0 Basophils % 0.0 Blood Morphology Comment Blood Urea Nitrogen 81 H Calcium Level 8.2 L Carbon Dioxide Level 23 Chloride Level 99 Creatinine 1.65 H Eosinophils # 0.0 Eosinophils % 0.0 Glucose Level 443 #*H Hematocrit 33.6 L Hemoglobin 10.9 L Lymphocytes # 0.3 L Lymphocytes % 6.0 L Mean Corpuscular Hemoglobin 26.1 L Mean Corpuscular Hemoglobin Concent 32.5 Mean Corpuscular Volume 80.2 L Mean Platelet Volume 7.8 Monocytes # 0.2 L Monocytes % 3.9 Neutrophils # 4.2 Neutrophils % 90.1 H Nucleated Red Blood Cells # 0.0 Nucleated Red Blood Cells % 0.0 Platelet Count 258 Potassium Level 4.4 Red Blood Count 4.19 L Red Cell Distribution Width 15.6 H Sodium Level 134 L White Blood Count 4.7 L Bedside Glucose 472 *H Medications Current Medications Brimonidine Tartrate (Alphagan 0.2%) 1 drop Q8 BOTH EYES Last administered on 03/05/16 05:39; Admin Dose 1 DROP; Start 03/01/16 at 06:00 Clonidine (Catapres) 0.2 mg TID PO Last administered on 03/05/16 08:37; Admin Dose 0.2 MG; Start 03/01/16 at 09:00 Fentanyl (Duragesic 100 Mcg/Hr Patch) 1 patch Q72H TRANSDERM Last administered on 03/04/16 09:36; Admin Dose 1 PATCH; Start 03/01/16 at 09:00 Latanoprost (Xalatan) 1 drop QHS BOTH EYES Last administered on 03/04/16 22: 00; Admin Dose 1 DROP; Start 03/01/16 at 21:00 Mycophenolate Mofetil (Cellcept) 500 mg BID PO Last administered on 03/05/16 08:37; Admin Dose 500 MG; Start 03/01/16 at 09:00 Gabapentin (Neurontin) 300 mg Q8H PO Last administered on 03/05/16 10:50; Admin Dose 300 MG; Start 03/01/16 at 02:00 Acetaminophen (Tylenol Tab) 650 mg Q4H PRN PO pain/fever; Start 03/01/16 at 01 :00 Ondansetron HCl (Zofran Inj) 4 mg Q4H PRN IV nausea; Start 03/01/16 at 01:00 Morphine Sulfate (morphine) 2 mg Q2H PRN IV pain Last administered on 11:42; Admin Dose 2 MG; Start 03/01/16 at 01:00 Hydralazine HCl (Apresoline) 25 mg Q6H PRN PO sbp>160; Start 03/01/16 at 01:00 Diltiazem HCl 30 mg 30 mg Q6H PO Last administered on 03/05/16 08:36; Admin Dose 30 MG; Start 03/01/16 at 02:00 Levofloxacin/ Dextrose (Levaquin 250 Mg/ D5W 50 ml (Pmx)) 50 ml @ 50 mls/hr Q24H IVPB Last administered on 03/05/16at 05:39; Admin Dose 50 MLS/HR; Start 03/02/16 at 06:00 Miscellaneous Information 1 ea NOTE XX ; Start 03/01/16 at 02:00 Glucose (Glutose) 15 gm Q15M PRN PO DECREASED GLUCOSE; Start 03/01/16 at 02:00 Glucose (Glutose) 22.5 gm Q15M PRN PO DECREASED GLUCOSE; Start 03/01/16 at 02: 00 Dextrose (D50w Syringe) 25 ml Q15M PRN IV DECREASED GLUCOSE; Start 03/01/16 at 02:00 Dextrose (D50w Syringe) 50 ml Q15M PRN IV DECREASED GLUCOSE; Start 03/01/16 at 02:00 Glucagon (Glucagen) 1 mg Q15M PRN IM DECREASED GLUCOSE; Start 03/01/16 at 02: 00 Glucose (Glutose) 15 gm Q15M PRN BUCCAL DECREASED GLUCOSE; Start 03/01/16 at 02:00 Diagnostic Test (Pha) (Accucheck) 1 ea 02 XX Last administered on 03/05/16at 02 :34; Admin Dose 1 EA; Start 03/02/16 at 02:00 Apixaban (Eliquis) 5 mg BID PO Last administered on 03/05/16at 08:38; Admin Dose 5 MG; Start 03/02/16 at 21:00 Losartan Potassium (Cozaar) 50 mg BID PO Last administered on 03/05/16at 08:37 ; Admin Dose 50 MG; Start 03/03/16 at 09:00 Bisacodyl (Dulcolax Supp) 10 mg DAILY PRN ID CONSTIPATION Last administered on 03/03/16at 22:11; Admin Dose 10 MG; Start 03/03/16 at 11:30 Clotrimazole (Lotrimin Cr) 1 applic BID TOP Last administered on 03/05/16at 09: 02; Admin Dose 1 APPLIC; Start 03/03/16 at 13:30 Insulin Glargine (Lantus) 40 unit QHS SC Last administered on 03/04/16at 22:08 ; Admin Dose 40 UNIT; Start 03/04/16 at 21:00 Methylprednisolone Sodium Succinate 60 mg 60 mg DAILY IV Last administered on 03/05/16at 08:37; Admin Dose 60 MG; Start 03/05/16 at 09:00 Trimethoprim/ Sulfamethoxazole/ Dextrose (Bactrim/D5W) 260 ml @ 173.333 mls/hr Q8 IVPB Last administered on 03/05/16at 06:54; Admin Dose 173.333 MLS/HR; Start 03/04/16 at 22:00 Docusate Sodium (Colace) 100 mg BID PO Last administered on 03/05/16at 10:50; Admin Dose 100 MG; Start 03/05/16 at 10:30 Magnesium Hydroxide (Milk Of Mag) 30 ml DAILY PRN PO CONSTIPATION; Start 03/05 at 10:30 Assessment/Plan Chief Complaint/Hosp Course IMPRESSION: An 85-year-old female with: 1. Acute hypoxemic respiratory failure. Likely secondary to acute bronchitis and possible pulmonary edema. Differential does include acute pulmonary embolus. Possible component of aspiration pneumonia 2. Chronic obstructive pulmonary disease exacerbation. 3. Bronchitis. As above 4. Metabolic acidosis, clinically improved worsening renal function possibly secondary to diuretics 5. History of diabetes. Poor Glycemic control exacerbated by steroids 6. History of hypertension. 7. Atrial fibrillation. 8. Coronary artery disease. RECOMMENDATIONS: 1. BiPAP p.r.n. 2. Check cultures. 3. Antibiotics. 4. Bronchodilators. 5. Oxygen. 6. Followup chest x-ray. Shows mild pulmonary edema 7. Lower extremity Dopplers negative for deep vein thrombosis, 8. Speech therapy evaluation rule out aspiration Problems: SHIVA PERES MD, [facility] Mar 05, 2016 14:57
[2016-03-05] MEDS: LATANOPROST 0.005% 2.5 ML OPH BOTH EYES SCH (21:31)
[2016-03-05] MEDS: INSULIN GLARGINE [LANtus] 3 ML PEN SC SCH (21:40)
[2016-03-06] VITALS (12 sets, daily range): BP systolic 98–145; BP diastolic 53–67; PULSE 90–133; RESP 16–18
[2016-03-06] MEDS: ALBUTEROL/IPRATROPIUM (NEB) 3 ML AMP HHN SCH ×4 (01:58→19:31)
[2016-03-06] MEDS ORDERED: VITAMIN A & D 5 GM OINT PACKET TOP ONE (02:28)
[2016-03-06] MEDS: GABAPENTIN 300 MG CAP PO SCH ×3 (02:32→17:47)
[2016-03-06] MEDS: ACCUCHECK AT 2AM (Patients on SS coverage) XX SCH (02:35)
[2016-03-06] MEDS: DILTIAZEM 30 MG TAB PO SCH ×4 (02:35→20:26)
[2016-03-06] MEDS: BRIMONIDINE 0.2% 5 ML BTL BOTH EYES SCH ×3 (05:48→22:32)
[2016-03-06] MEDS: TRIMETHOPRIM/SULFAMETHOXAZOLE 10 ML in DEXTROSE 5% 250 ML IVPB SCH (05:48)
[2016-03-06 07:59] LABS: HEMATOCRIT 30.9 % (37.0-47.0); HEMOGLOBIN 10.1 g/dl (12.0-16.0); MEAN CORPUSCULAR HEMOGLOBIN 26.1 pg (29.0-33.0); MEAN CORPUSCULAR HGB CONC 32.7 g/dl (32.0-37.0); MEAN CORPUSCULAR VOLUME 79.9 fl (82.0-101.0); MEAN PLATELET VOLUME 8.1 fl (7.4-10.4); PLATELET COUNT 225 10^3/UL (140-440); RED BLOOD COUNT 3.87 10^6/ul (4.20-5.40); RED CELL DISTRIBUTION WIDTH 15.8 % (11.5-14.5); UNCORRECTED WBC 5.1 10^3/ul (4.8-10.8); WHITE BLOOD COUNT 5.1 10^3/ul (4.8-10.8)
[2016-03-06 08:04] LABS: CONDITION 1; LH ANALYZER COMMENTS 1
[2016-03-06 08:21] LABS: CALCIUM 7.6 mg/dl (8.4-10.2); CREATININE 2.22 mg/dl (0.44-1.00)
[2016-03-06 08:22] LABS: MAGNESIUM 2.1 mg/dl (1.7-2.5); PHOSPHORUS 5.6 mg/dl (2.5-4.9)
[2016-03-06 09:19] LABS: ANISOCYTOSIS 1+; HYPOCHROMASIA 2+; LYMPHOCYTES # 0.7 10^3/ul (0.8-2.9); MICROCYTOSIS 1+; MONOCYTE # 0.2 10^3/ul (0.3-0.9); NEUTROPHIL # 4.1 10^3/ul (1.6-7.5)
[2016-03-06 09:20] LABS: PLATELET ESTIMATE PLT APPEAR ADEQUATE
[2016-03-06] MEDS: MYCOPHENOLATE 250 MG CAP PO SCH ×2 (09:21→20:27)
[2016-03-06] MEDS: DOCUSATE SODIUM 100 MG CAP PO SCH ×2 (09:21→20:27)
[2016-03-06] MEDS: LOSARTAN 50 MG TAB PO SCH (09:22)
[2016-03-06] MEDS: METHYLPREDNISOLONE 125 MG INJ IV SCH (09:22)
[2016-03-06] MEDS: APIXABAN 5 MG TABLET PO SCH ×2 (09:22→20:27)
[2016-03-06] MEDS: CLOTRIMAZOLE 1% 30 GM CR TOP SCH ×2 (09:23→20:27)
[2016-03-06] MEDS: INSULIN ASPART [NOVOLOG] 3 ML PEN SC SCH ×7 (09:24→20:38)
--- NOTE | 2016-03-06 11:07 | RADRPT ---
PROCEDURE: XR Chest. CLINICAL INDICATION: Pneumonia TECHNIQUE: Chest AP portable. COMPARISON: 03/04/2016 FINDINGS: The mediastinal structures are unremarkable. There is calcification of the thoracic aorta (consiste nt with atherosclerosis). There is mild cardiomegaly. The pulmonary vascularity is normal. There is mild bibasilar subsegmental atelectasis. The pleural spaces are unremarkable. There are senescent changes of the axial skeleton. IMPRESSION: Mild cardiomegaly Mild bibasilar subsegmental atelectasis RPTAT: HGDB .Kevin Lew MD, Date Time Electronically viewed and signed by .Kevin Lew MD, on 03/06/2016 11:07 .B/
--- NOTE | 2016-03-06 13:56 | PN ---
Date/Time of Note Date/Time of Note DATE: 03/06/16 TIME: 13:42 Assessment/Plan VTE Prophylaxis VTE Prophylaxis Intervention: other (on Eliquis ) Lines/Catheters IV Catheter Type (from Nrsg): Saline Lock Urinary Cath still in place: No Assessment/Plan Assessment/Plan 85 yo female with: 1. Acute Respiratory failure, improved and now on 3L NC. ? Bronchitis/URI/ PNA with reported history of Asthma and concerns for PJP raised this weekend as patient has been on cellcept chronically Pulmonary, Dr Ornelas following Continue nebulizers, steroids taper, Levaquin and IV Bactrim for now. With worsening renal function unable to do CTA On Eliquis with A fib 2. Paroxysmal A fib, no CAD per family but hx of Minor CVA ... patient should be now on anticoagulation given findings of A fib, family agreeable and will d/ c Plavix. Patient not on ASA as outpatient per Family so will also d/c Continue Cardizem and Eliquis. 3. JUAN on CKD Decline in Renal function with creatinine up to 2.2 and BUN 100, also with Hyponatremia (corrected to hyperglycemia) 130 Start IVF especially in setting of hyperglycemia D/c Bactrim and Losartan for now 4. Diabetes Mellitus: Continue Accu-Cheks and sliding scale. Continue Lantus at higher dose for now as patient with elevated BG. Check A1c 5. Severe Hypertension: continue Clonidine and Norvasc, maximizing Cardizem as tolerated for HR control and d/c HCTZ for now, if needs diuresis, use Lasix or Bumex. D/c Losartan 6. Pemphigoid disease per family, chronic for years and has been on Cellcept 7. Chronic Pain: continue fentanyl patch Prophylaxis: Continue Eliquis given A fib, PPI for GI ppx Disposition: Follow up Pulmonary recs today. Need to get renal function better. PT eval and will start d/c planning once renal function better, will need home O2 likely. Subjective 24 Hr Interval Summary Free Text/Dictation Patient doing OK and remains on 3L NC but concerns with renal function now, patient with Uremia and decline in renal function today No complaints today Afebrile Exam/Review of Systems Vital Signs Vitals Vital Signs Date Time Temp Pulse Resp B/P Pulse Ox O2 Delivery O2 Flow Rate FiO2 03/06/16 12:26 111 03/06/16 11:54 97.9 18 109/53 100 03/06/16 08:44 2.0 03/06/16 08:44 Nasal Cannula 03/05/16 02:03 32 Intake and Output 03/05/16 03/05/16 03/06/16 15:00 23:00 07:00 Intake Total 950 ml 560 ml Balance 950 ml 560 ml Exam Constitutional: alert, obese, oriented Respiratory: diminished breath sounds (at bases bilaterally ), normal air movement Cardiovascular: irregular rhythm (atrial fib mostly controlled ) Gastrointestinal: non-tender, soft Musculoskeletal: nl extremities to inspection, other (no edema, clubbing or cyanosis ) Extremities: normal pulses Neurological: [employer] II-XII intact, nl mental status, nl speech Results Result Diagram: 03/06/16 0500 03/06/16 0650 Results 24 hrs Laboratory Tests Test 03/05/16 17:41 03/05/16 21:36 03/06/16 02:39 03/06/16 05:00 Bedside Glucose 316 H 282 H 320 H Anisocytosis 1+ Band Neutrophils % 2.0 Blood Morphology Comment Hematocrit 30.9 L Hemoglobin 10.1 L Hypochromasia 2+ Lymphocytes # 0.7 L Lymphocytes % 14.0 L Mean Corpuscular Hemoglobin 26.1 L Mean Corpuscular Hemoglobin Concent 32.7 Mean Corpuscular Volume 79.9 L Mean Platelet Volume 8.1 Microcytosis 1+ Monocytes # 0.2 L Monocytes % 3.0 Neutrophils # 4.1 Neutrophils % 81.0 H Platelet Count 225 Platelet Estimate PLT APPEAR ADEQUATE Red Blood Count 3.87 L Red Cell Distribution Width 15.8 H White Blood Count 5.1 Test 03/06/16 06:30 03/06/16 06:50 03/06/16 07:24 03/06/16 12:26 Magnesium Level 2.1 Phosphorus Level 5.6 H Anion Gap 14 Blood Urea Nitrogen 100 H Calcium Level 7.6 L Carbon Dioxide Level 22 Chloride Level 95 L Creatinine 2.22 H Glucose Level 339 H Potassium Level 5.0 Sodium Level 126 L Bedside Glucose 373 H 368 H Medications Medications Current Medications Brimonidine Tartrate (Alphagan 0.2%) 1 drop Q8 BOTH EYES Last administered on 03/06/16at 05:48; Admin Dose 1 DROP; Start 03/01/16 at 06:00 Clonidine (Catapres) 0.2 mg TID PO Last administered on 03/06/16 09:21; Admin Dose 0.2 MG; Start 03/01/16 at 09:00 Fentanyl (Duragesic 100 Mcg/Hr Patch) 1 patch Q72H TRANSDERM Last administered on 03/04/16 09:36; Admin Dose 1 PATCH; Start 03/01/16 at 09:00 Latanoprost (Xalatan) 1 drop QHS BOTH EYES Last administered on 03/05/16 21: 31; Admin Dose 1 DROP; Start 03/01/16 at 21:00 Mycophenolate Mofetil (Cellcept) 500 mg BID PO Last administered on 03/06/16 09:21; Admin Dose 500 MG; Start 03/01/16 at 09:00 Gabapentin (Neurontin) 300 mg Q8H PO Last administered on 03/06/16 10:05; Admin Dose 300 MG; Start 03/01/16 at 02:00 Acetaminophen (Tylenol Tab) 650 mg Q4H PRN PO pain/fever; Start 03/01/16 at 01 :00 Ondansetron HCl (Zofran Inj) 4 mg Q4H PRN IV nausea; Start 03/01/16 at 01:00 Morphine Sulfate (morphine) 2 mg Q2H PRN IV pain Last administered on 11:42; Admin Dose 2 MG; Start 03/01/16 at 01:00 Hydralazine HCl (Apresoline) 25 mg Q6H PRN PO sbp>160; Start 03/01/16 at 01:00 Diltiazem HCl 30 mg 30 mg Q6H PO Last administered on 03/06/16 09:21; Admin Dose 30 MG; Start 03/01/16 at 02:00 Levofloxacin/ Dextrose (Levaquin 250 Mg/ D5W 50 ml (Pmx)) 50 ml @ 50 mls/hr Q24H IVPB Last administered on 03/05/16 16:38; Admin Dose 50 MLS/HR; Start 03/02/16 at 06:00 Miscellaneous Information 1 ea NOTE XX ; Start 03/01/16 at 02:00 Glucose (Glutose) 15 gm Q15M PRN PO DECREASED GLUCOSE; Start 03/01/16 at 02:00 Glucose (Glutose) 22.5 gm Q15M PRN PO DECREASED GLUCOSE; Start 03/01/16 at 02: 00 Dextrose (D50w Syringe) 25 ml Q15M PRN IV DECREASED GLUCOSE; Start 03/01/16 at 02:00 Dextrose (D50w Syringe) 50 ml Q15M PRN IV DECREASED GLUCOSE; Start 03/01/16 at 02:00 Glucagon (Glucagen) 1 mg Q15M PRN IM DECREASED GLUCOSE; Start 03/01/16 at 02: 00 Glucose (Glutose) 15 gm Q15M PRN BUCCAL DECREASED GLUCOSE; Start 03/01/16 at 02:00 Diagnostic Test (Pha) (Accucheck) 1 ea 02 XX Last administered on 03/06/16at 02 :35; Admin Dose 1 EA; Start 03/02/16 at 02:00 Apixaban (Eliquis) 5 mg BID PO Last administered on 03/06/16at 09:22; Admin Dose 5 MG; Start 03/02/16 at 21:00 Losartan Potassium (Cozaar) 50 mg BID PO Last administered on 03/06/16at 09:22 ; Admin Dose 50 MG; Start 03/03/16 at 09:00 Bisacodyl (Dulcolax Supp) 10 mg DAILY PRN [place] CONSTIPATION Last administered on 03/03/16at 22:11; Admin Dose 10 MG; Start 03/03/16 at 11:30 Clotrimazole (Lotrimin Cr) 1 applic BID TOP Last administered on 03/06/16at 09: 23; Admin Dose 1 APPLIC; Start 03/03/16 at 13:30 Insulin Glargine (Lantus) 40 unit QHS SC Last administered on 03/05/16at 21:40 ; Admin Dose 40 UNIT; Start 03/04/16 at 21:00 Methylprednisolone Sodium Succinate 60 mg 60 mg DAILY IV Last administered on 03/06/16at 09:22; Admin Dose 60 MG; Start 03/05/16 at 09:00 Trimethoprim/ Sulfamethoxazole/ Dextrose (Bactrim/D5W) 260 ml @ 173.333 mls/hr Q8 IVPB Last administered on 03/06/16at 05:48; Admin Dose 173.333 MLS/HR; Start 03/04/16 at 22:00 Docusate Sodium (Colace) 100 mg BID PO Last administered on 03/06/16at 09:21; Admin Dose 100 MG; Start 03/05/16 at 10:30 Magnesium Hydroxide (Milk Of Mag) 30 ml DAILY PRN PO CONSTIPATION; Start 03/05 at 10:30 AISHA TINEO Mar 06, 2016 13:53
[2016-03-06 14:33] LABS: AADO2 Arterial 42.1 mmHg (7.0-24.0); Allen Test ACCEPTAB; Arterial Base Excess -7.3 mmol/L (-3.0-3); Arterial COHb 0.1 % (0.0-3.0); Arterial Fraction of Oxyhgb 91.2 % (93.0-99.0); Arterial HCO3 17.7 mmol/L (22.0-26.0); Arterial MetHb 0.4 % (0.0-1.5); Arterial Total Hemglobin 11.8 g/dl (12.0-18.0); MODE ROOM AIR
[2016-03-06] MEDS: SOD CHLORIDE 0.9% 1,000 ML IV SCH (15:25)
[2016-03-06] MEDS: BISACODYL 10 MG SUPP PR PRN (15:34)
--- NOTE | 2016-03-06 16:58 | CONS ---
Date/Time of Note Date/Time of Note DATE: 03/06/16 TIME: 16:56 Consult Date/Type/Reason Admit Date/Time Feb 29, 2016 at 18:54 Type of Consultation: Pulmonary Subjective No new events, off NIPPV. Objective Vital Signs Date Time Temp Pulse Resp B/P Pulse Ox O2 Delivery O2 Flow Rate FiO2 03/06/16 15:36 97.5 68 18 137/64 98 03/06/16 14:32 Room Air 03/06/16 08:44 2.0 03/05/16 02:03 32 Intake and Output 03/05/16 03/05/16 03/06/16 15:00 23:00 07:00 Intake Total 950 ml 560 ml Balance 950 ml 560 ml PHYSICAL EXAMINATION: VITAL SIGNS: As above elderly lady sitting up in bed comfortable no acute distress HEENT: Pupils are equal and reactive to light. Nasal cannula oxygen NECK: Supple, no JVD noted, no cervical adenopathy, no carotid bruits heard. LUNGS: Diminished breath sounds and few rhonchi. CARDIOVASCULAR: S1, S2 normal, irregular. ABDOMEN: Soft, obese, nontender. No organomegaly or masses noted. EXTREMITIES: No clubbing or cyanosis noted. 1+ edema present bilaterally. NEUROLOGICAL: Awake and responsive. Results/Medications Result Diagram: 03/06/16 0500 03/06/16 0650 Results 24 hrs Laboratory Tests Test 03/05/16 17:41 03/05/16 21:36 03/06/16 02:39 03/06/16 05:00 Bedside Glucose 316 H 282 H 320 H Anisocytosis 1+ Band Neutrophils % 2.0 Blood Morphology Comment Hematocrit 30.9 L Hemoglobin 10.1 L Hypochromasia 2+ Lymphocytes # 0.7 L Lymphocytes % 14.0 L Mean Corpuscular Hemoglobin 26.1 L Mean Corpuscular Hemoglobin Concent 32.7 Mean Corpuscular Volume 79.9 L Mean Platelet Volume 8.1 Microcytosis 1+ Monocytes # 0.2 L Monocytes % 3.0 Neutrophils # 4.1 Neutrophils % 81.0 H Platelet Count 225 Platelet Estimate PLT APPEAR ADEQUATE Red Blood Count 3.87 L Red Cell Distribution Width 15.8 H White Blood Count 5.1 Test 03/06/16 06:30 03/06/16 06:50 03/06/16 07:24 03/06/16 12:26 Magnesium Level 2.1 Phosphorus Level 5.6 H Anion Gap 14 Blood Urea Nitrogen 100 H Calcium Level 7.6 L Carbon Dioxide Level 22 Chloride Level 95 L Creatinine 2.22 H Glucose Level 339 H Potassium Level 5.0 Sodium Level 126 L Bedside Glucose 373 H 368 H Test 03/06/16 13:47 Arterial Blood HCO3 17.7 L Arterial Blood Base Excess -7.3 L Arterial Blood Oxygen Saturation 91.7 L David Test ACCEPTAB Arterial Blood Gas Puncture Site Right Radial Arterial Blood Carboxyhemoglobin 0.1 Arterial Blood Date Drawn 03/06/2016 2:10:33 PM Arterial Blood Methemoglobin 0.4 Arterial Blood pCO2 (Temp correct) 34.2 L Arterial Blood pH (Temp corrected) 7.333 L Arterial Blood pO2 (Temp corrected) 66.7 L Blood Gas A-a O2 Differential 42.1 H Blood Gas Modality ROOM AIR Blood Gas Notified Time 03/06/2016 2:33:15 PM Blood Gas Notified Whom JLD Blood Gas Specimen Source Blood arterial Blood Gas Temperature 37.0 FiO2 21.0 Oxyhemoglobin Percent 91.2 L Total Hemoglobin 11.8 L Medications Current Medications Brimonidine Tartrate (Alphagan 0.2%) 1 drop Q8 BOTH EYES Last administered on 03/06/16 15:23; Admin Dose 1 DROP; Start 03/01/16 at 06:00 Clonidine (Catapres) 0.2 mg TID PO Last administered on 03/06/16at 15:22; Admin Dose 0.2 MG; Start 03/01/16 at 09:00 Fentanyl (Duragesic 100 Mcg/Hr Patch) 1 patch Q72H TRANSDERM Last administered on 03/04/16at 09:36; Admin Dose 1 PATCH; Start 03/01/16 at 09:00 Latanoprost (Xalatan) 1 drop QHS BOTH EYES Last administered on 03/05/16 21: 31; Admin Dose 1 DROP; Start 03/01/16 at 21:00 Mycophenolate Mofetil (Cellcept) 500 mg BID PO Last administered on 03/06/16 09:21; Admin Dose 500 MG; Start 03/01/16 at 09:00 Gabapentin (Neurontin) 300 mg Q8H PO Last administered on 03/06/16at 10:05; Admin Dose 300 MG; Start 03/01/16 at 02:00 Acetaminophen (Tylenol Tab) 650 mg Q4H PRN PO pain/fever; Start 03/01/16 at 01 :00 Ondansetron HCl (Zofran Inj) 4 mg Q4H PRN IV nausea; Start 03/01/16 at 01:00 Morphine Sulfate (morphine) 2 mg Q2H PRN IV pain Last administered on at 11:42; Admin Dose 2 MG; Start 03/01/16 at 01:00 Hydralazine HCl (Apresoline) 25 mg Q6H PRN PO sbp>160; Start 03/01/16 at 01:00 Diltiazem HCl 30 mg 30 mg Q6H PO Last administered on 03/06/16at 15:22; Admin Dose 30 MG; Start 03/01/16 at 02:00 Levofloxacin/ Dextrose (Levaquin 250 Mg/ D5W 50 ml (Pmx)) 50 ml @ 50 mls/hr Q24H IVPB Last administered on 03/05/16at 16:38; Admin Dose 50 MLS/HR; Start 03/02/16 at 06:00; Stop 03/06/16 at 23:45 Miscellaneous Information 1 ea NOTE XX ; Start 03/01/16 at 02:00 Glucose (Glutose) 15 gm Q15M PRN PO DECREASED GLUCOSE; Start 03/01/16 at 02:00 Glucose (Glutose) 22.5 gm Q15M PRN PO DECREASED GLUCOSE; Start 03/01/16 at 02: 00 Dextrose (D50w Syringe) 25 ml Q15M PRN IV DECREASED GLUCOSE; Start 03/01/16 at 02:00 Dextrose (D50w Syringe) 50 ml Q15M PRN IV DECREASED GLUCOSE; Start 03/01/16 at 02:00 Glucagon (Glucagen) 1 mg Q15M PRN IM DECREASED GLUCOSE; Start 03/01/16 at 02: 00 Glucose (Glutose) 15 gm Q15M PRN BUCCAL DECREASED GLUCOSE; Start 03/01/16 at 02:00 Diagnostic Test (Pha) (Accucheck) 1 ea 02 XX Last administered on 03/06/16at 02 :35; Admin Dose 1 EA; Start 03/02/16 at 02:00 Apixaban (Eliquis) 5 mg BID PO Last administered on 03/06/16at 09:22; Admin Dose 5 MG; Start 03/02/16 at 21:00 Bisacodyl (Dulcolax Supp) 10 mg DAILY PRN [place] CONSTIPATION Last administered on 03/06/16at 15:34; Admin Dose 10 MG; Start 03/03/16 at 11:30 Clotrimazole (Lotrimin Cr) 1 applic BID TOP Last administered on 03/06/16at 09: 23; Admin Dose 1 APPLIC; Start 03/03/16 at 13:30 Insulin Glargine (Lantus) 40 unit QHS SC Last administered on 03/05/16at 21:40 ; Admin Dose 40 UNIT; Start 03/04/16 at 21:00 Methylprednisolone Sodium Succinate (Solu-Medrol) 60 mg DAILY IV Last administered on 03/06/16at 09:22; Admin Dose 60 MG; Start 03/05/16 at 09:00 Docusate Sodium (Colace) 100 mg BID PO Last administered on 03/06/16at 09:21; Admin Dose 100 MG; Start 03/05/16 at 10:30 Magnesium Hydroxide 30 ml 30 ml DAILY PRN PO CONSTIPATION; Start 03/05/16 at 10:30 Levofloxacin/ Dextrose 50 ml @ 50 mls/hr Q48H IVPB ; Start 03/07/16 at 06:00 Sodium Chloride (NS) 1,000 ml @ 75 mls/hr [id number] IV Last administered on at 15:25; Admin Dose 75 MLS/HR; Start 03/06/16 at 14:30 Assessment/Plan Chief Complaint/Hosp Course IMPRESSION: An 85-year-old female with: 1. Acute hypoxemic respiratory failure. Likely secondary to acute bronchitis and possible pulmonary edema. Differential does include acute pulmonary embolus. Possible component of aspiration pneumonia 2. Chronic obstructive pulmonary disease exacerbation. 3. Bronchitis. As above 4. Metabolic acidosis, clinically improved worsening renal function possibly secondary to diuretics 5. History of diabetes. Poor Glycemic control exacerbated by steroids 6. History of hypertension. 7. Atrial fibrillation. 8. Coronary artery disease. RECOMMENDATIONS: 1. BiPAP p.r.n.O2 2. Check cultures. 3. Antibiotics. 4. Bronchodilators. 5. Oxygen. 6. Followup chest x-ray. Shows mild pulmonary edema 7. Lower extremity Dopplers negative for deep vein thrombosis, 8. Speech therapy recommendations. Prognosis guarded. Problems: VADGAMA,SHIVA V. MD, [facility] Mar 06, 2016 16:57
--- NOTE | 2016-03-06 17:36 | CONS ---
DATE OF ADMISSION: 02/29/2016 DATE OF CONSULTATION: 03/06/2016 TYPE OF CONSULTATION: Infectious disease. REASON FOR CONSULTATION: Antibiotic management. HISTORY OF PRESENT ILLNESS: The patient is an 85-year-old female who was admitted with shortness of breath and is being seen for antibiotic management. Her past problems include: 1. Adult-onset diabetes mellitus. 2. Hypertension. 3. Atrial fibrillation. 4. Coronary artery disease. 5. Chronic obstructive pulmonary disease. 6. Pemphigoid. Acutely, the patient comes in short of breath, which her breathing has become progressively worse. She was placed on cortisone and antibiotics by her primary doctor, but this had no effect and she no w comes in. On admission, her white count was 8.5, H and H of 12.9 and 40.6, platelet count 343,000 . BUN and creatinine was 100/2.22. Chest x-ray showed left lower lobe linear atelectasis, calcifie d aorta consistent with atherosclerotic disease. An abdominal ultrasound showed mild atrophic right kidney, left kidney not visualized, status post cholecystectomy, normal sized liver and spleen. A chest x-ray on the , mild left basilar atelectasis, and on the , mild cardiomegaly, mild bib asilar subsegmental atelectasis. Blood cultures negative. Influenza titers are negative. The cliff ent was seen in consultation by Dr. Ornelas, as well, pulmonary consultation, also by Dr. Horton. Jane mullins was initially on BiPAP. She is also on methylprednisolone. She is on insulin for her diabetes. She is on Levaquin. She is on gabapentin. She is also on CellCept 500 b.i.d. for the diagnosis of pemphigoid. She is doing better today off BiPAP. White count on the was 4.7, but her glucose was up to 443. White count was 5.1 on the . PAST MEDICAL HISTORY AND OPERATIONS: As outlined. FAMILY HISTORY: Noncontributory. SOCIAL HISTORY: She does not smoke, drink, or abuse drugs. ALLERGIES: NONE TO PENICILLIN, SULFA, OR FOODS. MEDICATIONS: Per chart. REVIEW OF SYSTEMS: As per HPI. PHYSICAL EXAMINATION: GENERAL: The patient is a markedly obese white female who is awake, responsive, no acute distress. VITAL SIGNS: Stable. She is afebrile. SKIN: Without generalized rash. HEENT: Within normal limits. NECK: Supple. LYMPH NODES: None palpable. CHEST: Decreased breath sounds at the bases. HEART: Without murmur or gallop. She has an irregularly irregular rhythm. ABDOMEN: Soft, nontender without organosplenomegaly or masses. EXTREMITIES: Without cyanosis, clubbing, or edema. RECTAL AND GENITAL: Deferred. NEUROLOGIC: No focal neurological abnormalities. IMPRESSION AND PLAN: I am not sure of the need for the CellCept, though she has been on this, accor ding to the family, for many years. We will continue her off of Bactrim. There is no evidence for pneumocystis at this point. We will continue her on her Levaquin. May want to switch her Levaquin to oral. I will dictate my findings to Dr. Spring, the hospitalists, and Dr. Ornelas. Dictated By: MIMI KHOURY MD, JD/NTS Conf#: [id number] DID#: [id number] CC: ROQUE MÁRQUEZ MD;*EndCC*
[2016-03-06] MEDS: LATANOPROST 0.005% 2.5 ML OPH BOTH EYES SCH (20:26)
[2016-03-06] MEDS: INSULIN GLARGINE [LANtus] 3 ML PEN SC SCH (20:33)
[2016-03-07] VITALS (12 sets, daily range): BP systolic 129–146; BP diastolic 60–65; PULSE 100–142; RESP 17–23
[2016-03-07] MEDS: ALBUTEROL/IPRATROPIUM (NEB) 3 ML AMP HHN SCH ×4 (01:38→19:50)
[2016-03-07] MEDS: ACCUCHECK AT 2AM (Patients on SS coverage) XX SCH (02:00)
[2016-03-07] MEDS: GABAPENTIN 300 MG CAP PO SCH ×3 (02:53→17:08)
[2016-03-07] MEDS: DILTIAZEM 30 MG TAB PO SCH ×4 (02:59→20:43)
[2016-03-07] MEDS: SOD CHLORIDE 0.9% 1,000 ML IV SCH ×2 (04:22→17:10)
[2016-03-07] MEDS: BRIMONIDINE 0.2% 5 ML BTL BOTH EYES SCH ×3 (05:30→23:07)
[2016-03-07] MEDS ORDERED: LEVOFLOXACIN 250MG/D5W (PMX) 50 ML IVPB SCH (06:00)
[2016-03-07] MEDS: CLOTRIMAZOLE 1% 30 GM CR TOP SCH ×2 (08:12→21:09)
[2016-03-07] MEDS: APIXABAN 5 MG TABLET PO SCH ×2 (08:12→20:44)
[2016-03-07] MEDS: DOCUSATE SODIUM 100 MG CAP PO SCH ×2 (08:12→20:43)
[2016-03-07] MEDS: METHYLPREDNISOLONE 125 MG INJ IV SCH (08:12)
[2016-03-07] MEDS: MYCOPHENOLATE 250 MG CAP PO SCH ×2 (08:13→20:43)
[2016-03-07] MEDS: INSULIN ASPART [NOVOLOG] 3 ML PEN SC SCH ×8 (08:14→21:00)
[2016-03-07 09:15] LABS: ADD UMIC NO; URINE BILIRUBIN (Dip) NEGATIVE (NEGATIVE); URINE BLOOD (Dip) NEGATIVE (NEGATIVE); URINE COLOR LT. YELLOW (YELLOW); URINE GLUCOSE (Dip) NEGATIVE (NEGATIVE); URINE KETONES (Dip) NEGATIVE (NEGATIVE); URINE LEUKOCYTE ESTERASE (Dip) NEGATIVE (NEGATIVE); URINE NITRITE (Dip) NEGATIVE (NEGATIVE); URINE TOTAL PROTEIN (Dip) NEGATIVE (NEGATIVE); URINE UROBILINOGEN (Dip) 0.2 E.U./dL (0.1-1.0)
--- NOTE | 2016-03-07 09:30 | RADRPT ---
PROCEDURE: XR Chest. CLINICAL INDICATION: Pneumonia, congestive heart failure. TECHNIQUE: Single frontal view of the chest was obtained. COMPARISON: 03/06/2016. FINDINGS: Cardiac silhouette is mildly enlarged and there is calcification in the thoracic aorta. Pulmonary v asculature appears normal. There is no change in bibasilar subsegmental atelectasis. There is no ev idence of a pneumothorax. Osseous structures appear unremarkable IMPRESSION: 1. Unchanging cardiomegaly and aortic atherosclerosis. 2. Bibasilar subsegmental atelectasis similar to the prior study. RPTAT: [facility] Physician Олег Date Time Electronically viewed and signed by Rob King Physician on 03/07/2016 09:30 /
[2016-03-07 10:33] LABS: POTASSIUM 4.9 mmol/L (3.5-5.1)
[2016-03-07 10:36] LABS: CALCIUM 7.8 mg/dl (8.4-10.2); CREATININE 3.12 mg/dl (0.44-1.00)
[2016-03-07 10:37] LABS: MAGNESIUM 2.1 mg/dl (1.7-2.5); PHOSPHORUS 6.4 mg/dl (2.5-4.9)
[2016-03-07 10:42] LABS: HEMATOCRIT 34.3 % (37.0-47.0); HEMOGLOBIN 11.1 g/dl (12.0-16.0); MEAN CORPUSCULAR HEMOGLOBIN 25.9 pg (29.0-33.0); MEAN CORPUSCULAR HGB CONC 32.5 g/dl (32.0-37.0); MEAN CORPUSCULAR VOLUME 79.7 fl (82.0-101.0); PLATELET COUNT 296 10^3/UL (140-440); RED BLOOD COUNT 4.31 10^6/ul (4.20-5.40); RED CELL DISTRIBUTION WIDTH 15.8 % (11.5-14.5); UNCORRECTED WBC 11.9 10^3/ul (4.8-10.8); WHITE BLOOD COUNT 11.9 10^3/ul (4.8-10.8)
[2016-03-07 11:00] LABS: CONDITION 1; LH ANALYZER COMMENTS 1
--- NOTE | 2016-03-07 11:22 | CONS ---
Date/Time of Note Date/Time of Note DATE: 03/07/16 TIME: 11:19 Consult Date/Type/Reason Admit Date/Time Feb 29, 2016 at 18:54 Type of Consultation: Pulmonary Subjective Awake alert, congested. Family bedside. Objective Vital Signs Date Time Temp Pulse Resp B/P Pulse Ox O2 Delivery O2 Flow Rate FiO2 03/07/16 08:55 117 03/07/16 08:01 98 3.0 32 03/07/16 08:01 18 Nasal Cannula 03/07/16 07:07 97.9 135/63 Intake and Output 03/06/16 03/06/16 03/07/16 15:00 23:00 07:00 Intake Total 850 ml 545 ml Output Total 300 ml Balance 850 ml 245 ml PHYSICAL EXAMINATION: VITAL SIGNS: As above elderly lady sitting up in bed comfortable audible rhonchi. HEENT: Pupils are equal and reactive to light. Nasal cannula oxygen NECK: Supple, no JVD noted, no cervical adenopathy, no carotid bruits heard. LUNGS: Diminished breath sounds and few rhonchi. CARDIOVASCULAR: S1, S2 normal, irregular. ABDOMEN: Soft, obese, nontender. No organomegaly or masses noted. EXTREMITIES: No clubbing or cyanosis noted. 1+ edema present bilaterally. NEUROLOGICAL: Awake and responsive. Results/Medications Result Diagram: 03/07/16 0950 03/07/16 0950 Results 24 hrs Laboratory Tests Test 03/06/16 12:26 03/06/16 13:47 03/06/16 17:40 03/06/16 20:29 Bedside Glucose 368 H 261 H 227 H Arterial Blood HCO3 17.7 L Arterial Blood Base Excess -7.3 L Arterial Blood Oxygen Saturation 91.7 L David Test ACCEPTAB Arterial Blood Gas Puncture Site Right Radial Arterial Blood Carboxyhemoglobin 0.1 Arterial Blood Date Drawn 03/06/2016 2:10:33 PM Arterial Blood Methemoglobin 0.4 Arterial Blood pCO2 (Temp correct) 34.2 L Arterial Blood pH (Temp corrected) 7.333 L Arterial Blood pO2 (Temp corrected) 66.7 L Blood Gas A-a O2 Differential 42.1 H Blood Gas Modality ROOM AIR Blood Gas Notified Time 03/06/2016 2:33:15 PM Blood Gas Notified Whom VIVIANE Blood Gas Specimen Source Blood arterial Blood Gas Temperature 37.0 FiO2 21.0 Oxyhemoglobin Percent 91.2 L Total Hemoglobin 11.8 L Test 03/06/16 20:30 03/07/16 02:52 03/07/16 06:00 03/07/16 07:27 Urine Eosinophils % 0.0 Urine Random Creatinine 46.07 Urine Random Sodium 19 L Bedside Glucose 145 231 H Urine Bilirubin NEGATIVE Urine Clarity CLEAR Urine Color LT. YELLOW Urine Glucose NEGATIVE Urine Hemoglobin NEGATIVE Urine Ketones NEGATIVE Urine Leukocyte Esterase NEGATIVE Urine Nitrite NEGATIVE Urine Specific [place] 1.020 Urine Total Protein NEGATIVE Urine Urobilinogen 0.2 E.U./dL Urine pH 5.5 Test 03/07/16 09:50 Anion Gap 15 Blood Morphology Comment Blood Urea Nitrogen 114 H Calcium Level 7.8 L Carbon Dioxide Level 23 Chloride Level 96 L Creatinine 3.12 H Glucose Level 150 # Hematocrit 34.3 L Hemoglobin 11.1 L Magnesium Level 2.1 Mean Corpuscular Hemoglobin 25.9 L Mean Corpuscular Hemoglobin Concent 32.5 Mean Corpuscular Volume 79.7 L Mean Platelet Volume 8.0 Nucleated Red Blood Cells # Nucleated Red Blood Cells % Phosphorus Level 6.4 H Platelet Count 296 # Potassium Level 4.9 Red Blood Count 4.31 Red Cell Distribution Width 15.8 H Sodium Level 129 L White Blood Count 11.9 #H Medications Current Medications Brimonidine Tartrate (Alphagan 0.2%) 1 drop Q8 BOTH EYES Last administered on 03/07/16at 05:30; Admin Dose 1 DROP; Start 03/01/16 at 06:00 Clonidine (Catapres) 0.2 mg TID PO Last administered on 03/07/16at 08:12; Admin Dose 0.2 MG; Start 03/01/16 at 09:00 Fentanyl (Duragesic 100 Mcg/Hr Patch) 1 patch Q72H TRANSDERM Last administered on 03/04/16at 09:36; Admin Dose 1 PATCH; Start 03/01/16 at 09:00 Latanoprost (Xalatan) 1 drop QHS BOTH EYES Last administered on 03/06/16at 20: 26; Admin Dose 1 DROP; Start 03/01/16 at 21:00 Mycophenolate Mofetil (Cellcept) 500 mg BID PO Last administered on 03/07/16at 08:13; Admin Dose 500 MG; Start 03/01/16 at 09:00 Gabapentin (Neurontin) 300 mg Q8H PO Last administered on 03/07/16at 08:13; Admin Dose 300 MG; Start 03/01/16 at 02:00 Acetaminophen (Tylenol Tab) 650 mg Q4H PRN PO pain/fever; Start 03/01/16 at 01 :00 Ondansetron HCl (Zofran Inj) 4 mg Q4H PRN IV nausea; Start 03/01/16 at 01:00 Morphine Sulfate (morphine) 2 mg Q2H PRN IV pain Last administered on at 11:42; Admin Dose 2 MG; Start 03/01/16 at 01:00 Hydralazine HCl (Apresoline) 25 mg Q6H PRN PO sbp>160; Start 03/01/16 at 01:00 Diltiazem HCl (Cardizem) 30 mg Q6H PO Last administered on 03/07/16at 08:12; Admin Dose 30 MG; Start 03/01/16 at 02:00 Miscellaneous Information 1 ea NOTE XX ; Start 03/01/16 at 02:00 Glucose (Glutose) 15 gm Q15M PRN PO DECREASED GLUCOSE; Start 03/01/16 at 02:00 Glucose (Glutose) 22.5 gm Q15M PRN PO DECREASED GLUCOSE; Start 03/01/16 at 02: 00 Dextrose (D50w Syringe) 25 ml Q15M PRN IV DECREASED GLUCOSE; Start 03/01/16 at 02:00 Dextrose (D50w Syringe) 50 ml Q15M PRN IV DECREASED GLUCOSE; Start 03/01/16 at 02:00 Glucagon (Glucagen) 1 mg Q15M PRN IM DECREASED GLUCOSE; Start 03/01/16 at 02: 00 Glucose (Glutose) 15 gm Q15M PRN BUCCAL DECREASED GLUCOSE; Start 03/01/16 at 02:00 Diagnostic Test (Pha) (Accucheck) 1 ea 02 XX Last administered on 03/06/16at 02 :35; Admin Dose 1 EA; Start 03/02/16 at 02:00 Apixaban (Eliquis) 5 mg BID PO Last administered on 03/07/16at 08:12; Admin Dose 5 MG; Start 03/02/16 at 21:00 Bisacodyl (Dulcolax Supp) 10 mg DAILY PRN [place] CONSTIPATION Last administered on 03/06/16at 15:34; Admin Dose 10 MG; Start 03/03/16 at 11:30 Clotrimazole (Lotrimin Cr) 1 applic BID TOP Last administered on 03/07/16at 08: 12; Admin Dose 1 APPLIC; Start 03/03/16 at 13:30 Insulin Glargine (Lantus) 40 unit QHS SC Last administered on 03/06/16at 20:33 ; Admin Dose 40 UNIT; Start 03/04/16 at 21:00 Methylprednisolone Sodium Succinate (Solu-Medrol) 60 mg DAILY IV Last administered on 03/07/16at 08:12; Admin Dose 60 MG; Start 03/05/16 at 09:00 Docusate Sodium (Colace) 100 mg BID PO Last administered on 03/07/16at 08:12; Admin Dose 100 MG; Start 03/05/16 at 10:30 Magnesium Hydroxide 30 ml 30 ml DAILY PRN PO CONSTIPATION; Start 03/05/16 at 10:30 Sodium Chloride (NS) 1,000 ml @ 75 mls/hr [id number] IV Last administered on at 04:22; Admin Dose 75 MLS/HR; Start 03/06/16 at 14:30 Levofloxacin (Levaquin) 250 mg Q48H PO ; Start 03/09/16 at 06:00 Assessment/Plan Chief Complaint/Hosp Course IMPRESSION: An 85-year-old female with: 1. Acute hypoxemic respiratory failure. Likely secondary to acute bronchitis and possible pulmonary edema. Possible aspiration. 2. Chronic obstructive pulmonary disease exacerbation. 3. Bronchitis. As above 4. Metabolic acidosis, clinically improved worsening renal function possibly secondary to diuretics 5. History of diabetes. Poor Glycemic control exacerbated by steroids 6. History of hypertension. 7. Atrial fibrillation. 8. Coronary artery disease. RECOMMENDATIONS: 1. BiPAP p.r.n.O2 2. Check cultures. 3. Antibiotics. 4. Bronchodilators. 5. Oxygen. 6. Followup chest x-ray. Shows mild pulmonary edema 7. Lower extremity Dopplers negative for deep vein thrombosis, 8. Speech therapy recommendations. Prognosis guarded. Problems: SHIVA PERES MD, [facility] Mar 07, 2016 11:22
[2016-03-07 11:31] LABS: MONOCYTE # 0.8 10^3/ul (0.3-0.9); NEUTROPHIL # 8.8 10^3/ul (1.6-7.5)
[2016-03-07 11:32] LABS: ANISOCYTOSIS 1+
[2016-03-07 11:33] LABS: HYPOCHROMASIA 2+; MICROCYTOSIS 1+
[2016-03-07] MEDS ORDERED: NA PHOSPHATE/BIPHOS 133 ML ENEMA PR ONE (12:00)
--- NOTE | 2016-03-07 14:20 | PN ---
DATE: INFECIOUS DISEASE PROGRESS NOTE SUBJECTIVE: No changes overnight per discussion with RN. The patient is lethargic, lying comfortab ly in bed, no fevers. LABORATORY DATA: WBC today 11.9, H and H 11.1 and 34.3, platelets 296, no shift, bands 2, lymphs 17 , monos 7. BUN 114, creatinine 3.12. MICROBIOLOGY: Blood cultures since admission negative. Influenza swab negative. Urinalysis from was negative for leukocyte esterase, nitrite. DIAGNOSTICS: Chest x-ray this morning revealed unchanged cardiomegaly with bibasilar atelectasis. ANTIMICROBIALS: The patient is on oral Levaquin. She is also getting IV Solu-Medrol, status post I V Bactrim. OBJECTIVE: GENERAL: This is a morbidly obese elderly woman who is lying comfortably in bed. HEENT: Head atraumatic, normocephalic. Sclerae anicteric. Buccal mucosa dry. NECK: Supple, trachea midline. CHEST: Rise symmetrical. Breath sounds diminished. HEART: S1, S2. ABDOMEN: Distended, soft. Bowel tones hypoactive. EXTREMITIES: With trace edema. ASSESSMENT: 1. Acute hypoxemic respiratory failure, likely secondary to acute bronchitis, possibly also pulmona ry edema, rule out aspiration, pulmonary follows. The patient remains on steroids and antibiotics. 2. Chronic obstructive pulmonary disease exacerbation. 3. Acute on chronic kidney disease. The patient is status post Bactrim. Kidney function worsening . 4. Possible urinary retention. 5. Diabetes. 6. Atrial fibrillation. 7. Morbid obesity. 8. Pemphigoid disease, had been on CellCept. PLAN: The patient remains clinically unchanged. Renal function worsening. Per test engineer nuclear equipment who is at bedside, the patient has not been making urine since 7 a.m. today. I discussed with the nurse to d o a bladder scan and straight catheterization her p.r.n. Continue on current antimicrobials, anti-a spiration measures. Follow urine cultures. Consider nephrology evaluation. Dictated By: LEÓN PAK MACHINE PLASTER MIXER for MIMI MOSER/DARIO Conf#: [id number] DID#: [id number]
[2016-03-07] MEDS: LACTULOSE 30ML CUP PO SCH ×2 (17:08→23:06)
--- NOTE | 2016-03-07 17:28 | PN ---
Date/Time of Note Date/Time of Note DATE: 03/07/16 TIME: 16:55 Assessment/Plan VTE Prophylaxis VTE Prophylaxis Intervention: other (Eliquis ) Lines/Catheters IV Catheter Type (from Nrsg): Peripheral IV Urinary Cath still in place: No Assessment/Plan Assessment/Plan 85 yo female with: 1. Acute Respiratory failure, improved and now on 3L NC. ? Bronchitis/URI/ PNA with reported history of Asthma and concerns for PJP raised this weekend as patient has been on CellCept chronically Pulmonary, Dr Ornelas following Continue nebulizers, steroids taper, Appreciate ID recs Bactrim d/c'd yesterday due to JUAN On Eliquis with A fib, need to dose renally. 2. Paroxysmal A fib, no CAD per family but hx of Minor CVA ... patient should be now on anticoagulation given findings of A fib, family agreeable and will d/ c Plavix. Patient not on ASA as outpatient per Family so will also d/c Continue Cardizem and Eliquis renal dosing. 3. JUAN on CKD Decline in Renal function with creatinine up to 3.12 and BUN 114, also with Hyponatremia (corrected to hyperglycemia) 129 IVF especially in setting of hyperglycemia OFF Bactrim and Losartan as of yesterday Consulting Nephrology Dr Galan today for now 4. Diabetes Mellitus: Continue Accu-Cheks and sliding scale. Continue Lantus at higher dose for now as patient with elevated BG. Check A1c 5. Severe Hypertension: continue Clonidine and Norvasc, maximizing Cardizem as tolerated for HR control and d/c HCTZ for now, if needs diuresis, use Lasix or Bumex. OFF Losartan due to JUAN 6. Pemphigoid disease per family, chronic for years and has been on Cellcept, ? renal dosing , will check with pharmacy 7. Chronic Pain: continue fentanyl patch 8. Severe Constipation: on multiple meds currently + enema Prophylaxis: Continue Eliquis given A fib, PPI for GI ppx Disposition: Follow up Pulmonary recs today. Nephrology consult with Dr Galan PT following Will start d/c planning once renal function better, will need home O2 likely. Subjective 24 Hr Interval Summary Free Text/Dictation Patient looks clinically better but renal function still declining Also with severe constipation Respiratory status stable on NC Exam/Review of Systems Vital Signs Vitals Vital Signs Date Time Temp Pulse Resp B/P Pulse Ox O2 Delivery O2 Flow Rate FiO2 03/07/16 15:27 98.2 85 23 144/65 100 03/07/16 15:12 Nasal Cannula 3.0 32 Intake and Output 03/06/16 03/06/16 03/07/16 15:00 23:00 07:00 Intake Total 850 ml 545 ml Output Total 300 ml Balance 850 ml 245 ml Exam Constitutional: alert, obese, oriented, well developed Respiratory: diminished breath sounds (baes bilaterally ), normal air movement Cardiovascular: nl pulses, regular rate and rhythm Gastrointestinal: non-tender, soft Musculoskeletal: nl extremities to inspection Extremities: edema (trace to + 1 edema ), normal pulses, other (no clubbing or cyanosis) Neurological: ENVIRONMENTAL COMPLIANCE ENGINEER II-XII intact, nl mental status, nl speech, other ( generalised weakness ) Results Result Diagram: 03/07/16 0950 03/07/16 0950 Results 24 hrs Laboratory Tests Test 03/06/16 17:40 03/06/16 20:29 03/06/16 20:30 03/07/16 02:52 Bedside Glucose 261 H 227 H 145 Urine Eosinophils % 0.0 Urine Random Creatinine 46.07 Urine Random Sodium 19 L Test 03/07/16 06:00 03/07/16 07:27 03/07/16 09:50 03/07/16 11:52 Urine Bilirubin NEGATIVE Urine Clarity CLEAR Urine Color LT. YELLOW Urine Glucose NEGATIVE Urine Hemoglobin NEGATIVE Urine Ketones NEGATIVE Urine Leukocyte Esterase NEGATIVE Urine Nitrite NEGATIVE Urine Specific [place] 1.020 Urine Total Protein NEGATIVE Urine Urobilinogen 0.2 E.U./dL Urine pH 5.5 Bedside Glucose 231 H 272 H Anion Gap 15 Anisocytosis 1+ Band Neutrophils % 2.0 Blood Morphology Comment Blood Urea Nitrogen 114 H Calcium Level 7.8 L Carbon Dioxide Level 23 Chloride Level 96 L Creatinine 3.12 H Glucose Level 150 # Hematocrit 34.3 L Hemoglobin 11.1 L Hypochromasia 2+ Lymphocytes # 2.0 Lymphocytes % 17.0 Magnesium Level 2.1 Mean Corpuscular Hemoglobin 25.9 L Mean Corpuscular Hemoglobin Concent 32.5 Mean Corpuscular Volume 79.7 L Mean Platelet Volume 8.0 Microcytosis 1+ Monocytes # 0.8 Monocytes % 7.0 Neutrophils # 8.8 H Neutrophils % 74.0 Nucleated Red Blood Cells # Nucleated Red Blood Cells % Phosphorus Level 6.4 H Platelet Count 296 # Potassium Level 4.9 Red Blood Count 4.31 Red Cell Distribution Width 15.8 H Sodium Level 129 L White Blood Count 11.9 #H Medications Medications Current Medications Brimonidine Tartrate (Alphagan 0.2%) 1 drop Q8 BOTH EYES Last administered on 03/07/16 12:34; Admin Dose 1 DROP; Start 03/01/16 at 06:00 Clonidine (Catapres) 0.2 mg TID PO Last administered on 03/07/16 12:35; Admin Dose 0.2 MG; Start 03/01/16 at 09:00 Fentanyl (Duragesic 100 Mcg/Hr Patch) 1 patch Q72H TRANSDERM Last administered on 03/04/16 09:36; Admin Dose 1 PATCH; Start 03/01/16 at 09:00 Latanoprost (Xalatan) 1 drop QHS BOTH EYES Last administered on 03/06/16 20: 26; Admin Dose 1 DROP; Start 03/01/16 at 21:00 Mycophenolate Mofetil (Cellcept) 500 mg BID PO Last administered on 03/07/16 08:13; Admin Dose 500 MG; Start 03/01/16 at 09:00 Gabapentin (Neurontin) 300 mg Q8H PO Last administered on 03/07/16 08:13; Admin Dose 300 MG; Start 03/01/16 at 02:00 Acetaminophen (Tylenol Tab) 650 mg Q4H PRN PO pain/fever; Start 03/01/16 at 01 :00 Ondansetron HCl (Zofran Inj) 4 mg Q4H PRN IV nausea; Start 03/01/16 at 01:00 Morphine Sulfate (morphine) 2 mg Q2H PRN IV pain Last administered on 11:42; Admin Dose 2 MG; Start 03/01/16 at 01:00 Hydralazine HCl (Apresoline) 25 mg Q6H PRN PO sbp>160; Start 03/01/16 at 01:00 Diltiazem HCl (Cardizem) 30 mg Q6H PO Last administered on 03/07/16 12:35; Admin Dose 30 MG; Start 03/01/16 at 02:00 Miscellaneous Information 1 ea NOTE XX ; Start 03/01/16 at 02:00 Glucose (Glutose) 15 gm Q15M PRN PO DECREASED GLUCOSE; Start 03/01/16 at 02:00 Glucose (Glutose) 22.5 gm Q15M PRN PO DECREASED GLUCOSE; Start 03/01/16 at 02: 00 Dextrose (D50w Syringe) 25 ml Q15M PRN IV DECREASED GLUCOSE; Start 03/01/16 at 02:00 Dextrose (D50w Syringe) 50 ml Q15M PRN IV DECREASED GLUCOSE; Start 03/01/16 at 02:00 Glucagon (Glucagen) 1 mg Q15M PRN IM DECREASED GLUCOSE; Start 03/01/16 at 02: 00 Glucose (Glutose) 15 gm Q15M PRN BUCCAL DECREASED GLUCOSE; Start 03/01/16 at 02:00 Diagnostic Test (Pha) (Accucheck) 1 ea 02 XX Last administered on 03/06/16at 02 :35; Admin Dose 1 EA; Start 03/02/16 at 02:00 Apixaban (Eliquis) 5 mg BID PO Last administered on 03/07/16at 08:12; Admin Dose 5 MG; Start 03/02/16 at 21:00 Bisacodyl (Dulcolax Supp) 10 mg DAILY PRN [place] CONSTIPATION Last administered on 03/06/16at 15:34; Admin Dose 10 MG; Start 03/03/16 at 11:30 Clotrimazole (Lotrimin Cr) 1 applic BID TOP Last administered on 03/07/16at 08: 12; Admin Dose 1 APPLIC; Start 03/03/16 at 13:30 Insulin Glargine (Lantus) 40 unit QHS SC Last administered on 03/06/16at 20:33 ; Admin Dose 40 UNIT; Start 03/04/16 at 21:00 Methylprednisolone Sodium Succinate (Solu-Medrol) 60 mg DAILY IV Last administered on 03/07/16at 08:12; Admin Dose 60 MG; Start 03/05/16 at 09:00 Docusate Sodium (Colace) 100 mg BID PO Last administered on 03/07/16at 08:12; Admin Dose 100 MG; Start 03/05/16 at 10:30 Magnesium Hydroxide 30 ml 30 ml DAILY PRN PO CONSTIPATION; Start 03/05/16 at 10:30 Sodium Chloride (NS) 1,000 ml @ 75 mls/hr [id number] IV Last administered on at 04:22; Admin Dose 75 MLS/HR; Start 03/06/16 at 14:30 Levofloxacin (Levaquin) 250 mg Q48H PO ; Start 03/09/16 at 06:00 Lactulose (Enulose) 20 gm Q8 PO ; Start 03/07/16 at 17:00 Procedures Procedures PROCEDURE: XR Chest. CLINICAL INDICATION: Pneumonia, congestive heart failure. TECHNIQUE: Single frontal view of the chest was obtained. COMPARISON: 03/06/2016. FINDINGS: Cardiac silhouette is mildly enlarged and there is calcification in the thoracic aorta. Pulmonary vasculature appears normal. There is no change in bibasilar subsegmental atelectasis. There is no evidence of a pneumothorax. Osseous structures appear unremarkable IMPRESSION: 1. Unchanging cardiomegaly and aortic atherosclerosis. 2. Bibasilar subsegmental atelectasis similar to the prior study. AISHA TINEO Mar 07, 2016 17:11
[2016-03-07] MEDS ORDERED: SALINE 0.65% 45 ML NAS SPRAY NASAL PRN (17:30)
[2016-03-07] MEDS: LATANOPROST 0.005% 2.5 ML OPH BOTH EYES SCH (20:50)
[2016-03-07] MEDS: INSULIN GLARGINE [LANtus] 3 ML PEN SC SCH (21:08)
[2016-03-08] VITALS (16 sets, daily range): BP systolic 128–172; BP diastolic 57–119; PULSE 60–154; RESP 17–22
[2016-03-08] MEDS: ALBUTEROL/IPRATROPIUM (NEB) 3 ML AMP HHN SCH ×4 (01:06→19:58)
[2016-03-08] MEDS: ACCUCHECK AT 2AM (Patients on SS coverage) XX SCH (02:00)
[2016-03-08] MEDS: GABAPENTIN 300 MG CAP PO SCH ×3 (02:22→18:28)
[2016-03-08] MEDS: DILTIAZEM 30 MG TAB PO SCH ×4 (02:23→20:50)
[2016-03-08] MEDS: LACTULOSE 30ML CUP PO SCH ×3 (06:59→22:00)
[2016-03-08] MEDS: BRIMONIDINE 0.2% 5 ML BTL BOTH EYES SCH ×4 (06:59→21:32)
[2016-03-08] MEDS: SOD CHLORIDE 0.9% 1,000 ML IV SCH ×2 (07:01→20:53)
[2016-03-08] MEDS: INSULIN ASPART [NOVOLOG] 3 ML PEN SC SCH ×7 (07:55→21:00)
[2016-03-08 08:14] LABS: HEMOGLOBIN 11.3 g/dl (12.0-16.0); MEAN CORPUSCULAR HEMOGLOBIN 25.7 pg (29.0-33.0); MEAN CORPUSCULAR HGB CONC 32.3 g/dl (32.0-37.0); MEAN CORPUSCULAR VOLUME 79.6 fl (82.0-101.0); MEAN PLATELET VOLUME 8.1 fl (7.4-10.4); PLATELET COUNT 338 10^3/UL (140-440); RED CELL DISTRIBUTION WIDTH 15.9 % (11.5-14.5); UNCORRECTED WBC 14.5 10^3/ul (4.8-10.8); WHITE BLOOD COUNT 14.5 10^3/ul (4.8-10.8)
[2016-03-08 08:23] LABS: CONDITION 1; LH ANALYZER COMMENTS 1
[2016-03-08 08:29] LABS: POTASSIUM 5.2 mmol/L (3.5-5.1)
[2016-03-08] MEDS: MYCOPHENOLATE 250 MG CAP PO SCH ×2 (08:29→20:51)
[2016-03-08 08:30] LABS: CREATININE 2.3 mg/dl (0.44-1.00); MAGNESIUM 2.2 mg/dl (1.7-2.5)
[2016-03-08] MEDS: DOCUSATE SODIUM 100 MG CAP PO SCH ×2 (08:30→20:51)
[2016-03-08] MEDS: APIXABAN 5 MG TABLET PO SCH ×2 (08:30→20:51)
[2016-03-08] MEDS: CLOTRIMAZOLE 1% 30 GM CR TOP SCH ×2 (08:33→21:34)
[2016-03-08] MEDS: METHYLPREDNISOLONE 125 MG INJ IV SCH (08:37)
[2016-03-08] MEDS ORDERED: MINERAL OIL 133 ML ENEMA PR ONE (09:30)
[2016-03-08 10:47] LABS: LYMPHOCYTES # 1.6 10^3/ul (0.8-2.9); MONOCYTE # 0.7 10^3/ul (0.3-0.9); NEUTROPHIL # 12.2 10^3/ul (1.6-7.5)
[2016-03-08] MEDS: ACETAMINOPHEN 325 MG TAB PO PRN (12:49)
--- NOTE | 2016-03-08 12:59 | CONS ---
Date/Time of Note Date/Time of Note DATE: 03/08/16 TIME: 12:53 Assessment/Plan Assessment/Plan Chief Complaint/Hosp Course - Acute Kidney Injury - Chronic Kidney Disease ( DM nephropathy + HTN Nephrosclerosis ) - Anemia - Pulmonary disease / COPD - Pemphigoid Dz ( Immunosuppressed ) - Hypertension - Acidosis PLAN: JUAN secondary to ATN & Decrease renal Perfusion No Proteinuria on the UA ? Acute Interstitial Nephritis + Underlying renal disease due to poorly controlled DM & HTN Slight improving creatinine since yesterday For now: - Check a total CK - Check urine Eosinophilia - Monitor her Co2 ( will hold any bicarb. at this point ) - Keeping her I/O Even to positive THANK YOU V. MUCH Problems: Consultation Date/Type/Reason Admit Date/Time Feb 29, 2016 at 18:54 Date of Consultation: Mar 08, 2016 Type of Consultation: NEPHROLOGY Reason for Consultation Acute Kidney Injury Constitutional: no complaints Eyes: no complaints ENT: no complaints Respiratory: shortness of breath Cardiovascular: no complaints Gastrointestinal: no complaints Genitourinary: no complaints Past Medical History - DM - CAD / CHF - Pemphigoid Dz ? - Hypertension - Anemia - +/- CKD Past Surgical History Past Surgical Hx: no surgical history Family History Significant Family History: no pertinent family hx Social History Alcohol Use: none Smoking Status: Current every day smoker Drug Use: none Exam/Review of Systems Vital Signs Vitals Vital Signs Date Time Temp Pulse Resp B/P Pulse Ox O2 Delivery O2 Flow Rate FiO2 03/08/16 12:49 100.2 03/08/16 12:29 152 03/08/16 11:07 20 153/71 97 03/08/16 08:47 3.0 03/08/16 08:46 Nasal Cannula 03/07/16 17:15 32 Intake and Output 03/07/16 03/07/16 03/08/16 15:00 23:00 07:00 Intake Total 550 ml 1150 ml Output Total 500 ml Balance 50 ml 1150 ml Exam Constitutional: alert Psych: no complaints Head: normocephalic Eyes: nl conjunctiva Neck: supple Respiratory: crackles/rales Cardiovascular: regular rate and rhythm, systolic murmur Gastrointestinal: soft Results Result Diagram: 03/08/16 0800 03/08/16 0800 Results 24 hrs Laboratory Tests Test 03/07/16 17:03 03/07/16 21:01 03/08/16 07:29 03/08/16 08:00 Bedside Glucose 152 133 99 Anion Gap 25 #H Blood Morphology Comment Blood Urea Nitrogen 116 H Calcium Level 8.0 L Carbon Dioxide Level 14 L Chloride Level 96 L Creatinine 2.30 H Differential Comment MANUAL DIFF Glucose Level 87 # Hematocrit 35.0 L Hemoglobin 11.3 L Lymphocytes # 1.6 Lymphocytes % 11.0 L Magnesium Level 2.2 Mean Corpuscular Hemoglobin 25.7 L Mean Corpuscular Hemoglobin Concent 32.3 Mean Corpuscular Volume 79.6 L Mean Platelet Volume 8.1 Monocytes # 0.7 Monocytes % 5.0 Neutrophils # 12.2 H Neutrophils % 84.0 H Phosphorus Level 7.0 H Platelet Count 338 Potassium Level 5.2 H Red Blood Count 4.40 Red Cell Distribution Width 15.9 H Sodium Level 130 L White Blood Count 14.5 #H Test 03/08/16 12:16 Bedside Glucose 137 Medications Medications Current Medications Brimonidine Tartrate (Alphagan 0.2%) 1 drop Q8 BOTH EYES Last administered on 03/08/16 06:59; Admin Dose 1 DROP; Start 03/01/16 at 06:00 Clonidine (Catapres) 0.2 mg TID PO Last administered on 03/08/16 08:36; Admin Dose 0.2 MG; Start 03/01/16 at 09:00 Latanoprost (Xalatan) 1 drop QHS BOTH EYES Last administered on 03/07/16at 20: 50; Admin Dose 1 DROP; Start 03/01/16 at 21:00 Mycophenolate Mofetil (Cellcept) 500 mg BID PO Last administered on 03/08/16 08:29; Admin Dose 500 MG; Start 03/01/16 at 09:00 Gabapentin (Neurontin) 300 mg Q8H PO Last administered on 03/08/16 09:33; Admin Dose 300 MG; Start 03/01/16 at 02:00 Acetaminophen (Tylenol Tab) 650 mg Q4H PRN PO pain/fever Last administered on 03/08/16 12:49; Admin Dose 650 MG; Start 03/01/16 at 01:00 Ondansetron HCl (Zofran Inj) 4 mg Q4H PRN IV nausea Last administered on 12/22/ 16at 02:23; Admin Dose 4 MG; Start 03/01/16 at 01:00 Morphine Sulfate (morphine) 2 mg Q2H PRN IV pain Last administered on at 11:42; Admin Dose 2 MG; Start 03/01/16 at 01:00 Hydralazine HCl (Apresoline) 25 mg Q6H PRN PO sbp>160; Start 03/01/16 at 01:00 Diltiazem HCl (Cardizem) 30 mg Q6H PO Last administered on 03/08/16at 08:36; Admin Dose 30 MG; Start 03/01/16 at 02:00 Miscellaneous Information 1 ea NOTE XX ; Start 03/01/16 at 02:00 Glucose (Glutose) 15 gm Q15M PRN PO DECREASED GLUCOSE; Start 03/01/16 at 02:00 Glucose (Glutose) 22.5 gm Q15M PRN PO DECREASED GLUCOSE; Start 03/01/16 at 02: 00 Dextrose (D50w Syringe) 25 ml Q15M PRN IV DECREASED GLUCOSE; Start 03/01/16 at 02:00 Dextrose (D50w Syringe) 50 ml Q15M PRN IV DECREASED GLUCOSE; Start 03/01/16 at 02:00 Glucagon (Glucagen) 1 mg Q15M PRN IM DECREASED GLUCOSE; Start 03/01/16 at 02: 00 Glucose (Glutose) 15 gm Q15M PRN BUCCAL DECREASED GLUCOSE; Start 03/01/16 at 02:00 Diagnostic Test (Pha) (Accucheck) 1 ea 02 XX Last administered on 03/06/16at 02 :35; Admin Dose 1 EA; Start 03/02/16 at 02:00 Bisacodyl (Dulcolax Supp) 10 mg DAILY PRN [place] CONSTIPATION Last administered on 03/06/16at 15:34; Admin Dose 10 MG; Start 03/03/16 at 11:30 Clotrimazole (Lotrimin Cr) 1 applic BID TOP Last administered on 03/08/16at 08: 33; Admin Dose 1 APPLIC; Start 03/03/16 at 13:30 Insulin Glargine (Lantus) 40 unit QHS SC Last administered on 03/07/16at 21:08 ; Admin Dose 40 UNIT; Start 03/04/16 at 21:00 Methylprednisolone Sodium Succinate (Solu-Medrol) 60 mg DAILY IV Last administered on 03/08/16 08:37; Admin Dose 60 MG; Start 03/05/16 at 09:00 Docusate Sodium (Colace) 100 mg BID PO Last administered on 03/08/16 08:30; Admin Dose 100 MG; Start 03/05/16 at 10:30 Magnesium Hydroxide 30 ml 30 ml DAILY PRN PO CONSTIPATION Last administered on 03/08/16 12:37; Admin Dose 30 ML; Start 03/05/16 at 10:30 Sodium Chloride (NS) 1,000 ml @ 75 mls/hr [id number] IV Last administered on 07:01; Admin Dose 75 MLS/HR; Start 03/06/16 at 14:30 Levofloxacin (Levaquin) 250 mg Q48H PO ; Start 03/09/16 at 06:00 Lactulose (Enulose) 20 gm Q8 PO Last administered on 03/08/16 06:59; Admin Dose 20 GM; Start 03/07/16 at 17:00 Apixaban (Eliquis) 2.5 mg BID PO Last administered on 03/08/16 08:30; Admin Dose 2.5 MG; Start 03/07/16 at 21:00 Sodium Chloride (Deep Sea) 1 spray Q4H PRN NASAL NASAL CONGESTION; Start 03/07 at 17:30 Fentanyl (Duragesic 100 Mcg/Hr Patch) 1 patch Q72H TRANSDERM Last administered on 03/08/16 09:41; Admin Dose 1 PATCH; Start 03/08/16 at 09:00 KAMERON EUBANKS MD Mar 08, 2016 12:58
[2016-03-08 16:00] LABS: ADD UMIC NO; URINE BILIRUBIN (Dip) NEGATIVE (NEGATIVE); URINE BLOOD (Dip) NEGATIVE (NEGATIVE); URINE COLOR LT. YELLOW (YELLOW); URINE GLUCOSE (Dip) NEGATIVE (NEGATIVE); URINE KETONES (Dip) NEGATIVE (NEGATIVE); URINE LEUKOCYTE ESTERASE (Dip) NEGATIVE (NEGATIVE); URINE NITRITE (Dip) NEGATIVE (NEGATIVE); URINE TOTAL PROTEIN (Dip) NEGATIVE (NEGATIVE); URINE UROBILINOGEN (Dip) 0.2 E.U./dL (0.1-1.0)
[2016-03-08] MEDS ORDERED: MAGNESIUM CITRATE 300 ML BTL PO PRN ×2 (16:00→17:00)
--- NOTE | 2016-03-08 18:55 | PN ---
DATE: 03/08/2016 SUBJECTIVE: No changes overnight. No fevers. The patient is lying comfortably in bed. No shortne ss of breath at rest. WBC today 14.5, H and H 11.3 and 35, platelets 338, neutrophils 84. BUN 116, creatinine 2.30. MICROBIOLOGY: Urine cultures pending. ANTIMICROBIALS: The patient is on oral Levaquin. She is also getting Solu-Medrol. PHYSICAL EXAMINATION: GENERAL: Obese, well-developed, fragile elderly woman who is lying comfortably in bed. HEENT: Head atraumatic, normocephalic. Sclerae anicteric. Buccal mucosa dry. NECK: Supple. Trachea midline. CHEST: Rise symmetrical. Breath sounds diminished to bases. HEART: S1, S2. ABDOMEN: Soft. Bowel tones present. EXTREMITIES: Without cyanosis. ASSESSMENT: 1. Acute hypoxemic respiratory failure, possibly acute bronchitis as well as pulmonary edema, rule out aspiration. Remains on steroids, antibiotics. 2. Chronic obstructive pulmonary disease exacerbation. 3. Acute on chronic kidney disease, Nephrology follows. 4. Diabetes. 5. Atrial fibrillation. 6. Bullous pemphigoid, had been on immunosuppressive therapy. PLAN: Clinically unchanged. No fevers. Being seen by Nephrology. Leukocytosis likely secondary t o Solu-Medrol. Continue present care. Dictated By: LEÓN PAK AT[employer]IZER ASSEMBLER for MIMI MOSER/DARIO Conf#: [id number] DID#: [id number]
[2016-03-08] MEDS: INSULIN GLARGINE [LANtus] 3 ML PEN SC SCH (21:00)
[2016-03-08] MEDS: LATANOPROST 0.005% 2.5 ML OPH BOTH EYES SCH (21:43)
[2016-03-08] MEDS ORDERED: ONDANSETRON 4 MG INJ IV PRN (23:30)
[2016-03-08] MEDS: BISACODYL 10 MG SUPP PR PRN (23:47)
[2016-03-09] VITALS (12 sets, daily range): BP systolic 114–151; BP diastolic 56–76; PULSE 102–144; RESP 15–20
[2016-03-09] MEDS: ALBUTEROL/IPRATROPIUM (NEB) 3 ML AMP HHN SCH ×4 (01:13→20:03)
[2016-03-09] MEDS: GABAPENTIN 300 MG CAP PO SCH ×3 (02:00→18:00)
[2016-03-09] MEDS: DILTIAZEM 30 MG TAB PO SCH ×4 (02:00→21:06)
[2016-03-09] MEDS: ACCUCHECK AT 2AM (Patients on SS coverage) XX SCH (02:00)
[2016-03-09] MEDS ORDERED: LEVOFLOXACIN 250 MG TAB PO SCH (06:00)
[2016-03-09] MEDS: LACTULOSE 30ML CUP PO SCH ×4 (06:17→22:00)
[2016-03-09] MEDS: BRIMONIDINE 0.2% 5 ML BTL BOTH EYES SCH ×3 (06:17→21:08)
[2016-03-09 06:53] LABS: HEMATOCRIT 29.2 % (37.0-47.0); HEMOGLOBIN 9.6 g/dl (12.0-16.0); MEAN CORPUSCULAR HEMOGLOBIN 26.3 pg (29.0-33.0); MEAN CORPUSCULAR VOLUME 79.8 fl (82.0-101.0); MEAN PLATELET VOLUME 8.4 fl (7.4-10.4); PLATELET COUNT 273 10^3/UL (140-440); RED BLOOD COUNT 3.66 10^6/ul (4.20-5.40); RED CELL DISTRIBUTION WIDTH 15.4 % (11.5-14.5); UNCORRECTED WBC 16.9 10^3/ul (4.8-10.8); WHITE BLOOD COUNT 16.9 10^3/ul (4.8-10.8)
[2016-03-09 07:04] LABS: CONDITION 1; LH ANALYZER COMMENTS 1
[2016-03-09 07:05] LABS: POTASSIUM 4.8 mmol/L (3.5-5.1)
[2016-03-09 07:07] LABS: CREATININE 2.69 mg/dl (0.44-1.00)
[2016-03-09 07:08] LABS: CALCIUM 7.5 mg/dl (8.4-10.2)
[2016-03-09] MEDS: INSULIN ASPART [NOVOLOG] 3 ML PEN SC SCH ×7 (07:55→22:19)
--- NOTE | 2016-03-09 08:16 | RADRPT ---
PROCEDURE: XR Chest. CLINICAL INDICATION: Shortness of breath. TECHNIQUE: Single frontal view. COMPARISON: 03/07/2016. FINDINGS: There is mild atelectasis at the lung bases, unchanged. The lungs are otherwise clear. The heart is mildly enlarged. There is calcification in the aorta consistent with atherosclerosis. There is no pleural effusion. There is no pneumothorax. IMPRESSION: 1. No change from 03/07/2016. RPTAT: QQ .Jim Calloway MD, MD Date Time Electronically viewed and signed by .Jim Calloway MD, MD on 03/09/2016 08:15 .R/
[2016-03-09] MEDS: DOCUSATE SODIUM 100 MG CAP PO SCH ×2 (09:00→21:04)
[2016-03-09] MEDS: CLOTRIMAZOLE 1% 30 GM CR TOP SCH ×2 (09:00→21:05)
[2016-03-09] MEDS: MYCOPHENOLATE 250 MG CAP PO SCH ×3 (09:00→21:10)
[2016-03-09] MEDS: SOD CHLORIDE 0.9% 1,000 ML IV SCH ×2 (09:10→22:19)
[2016-03-09] MEDS: METHYLPREDNISOLONE 125 MG INJ IV SCH (10:30)
[2016-03-09 10:32] LABS: MONOCYTE # 0.7 10^3/ul (0.3-0.9); NEUTROPHIL # 15.2 10^3/ul (1.6-7.5)
--- NOTE | 2016-03-09 11:46 | PN ---
Date/Time of Note Date/Time of Note DATE: 03/08/16 TIME: 15:00 Assessment/Plan VTE Prophylaxis VTE Prophylaxis Intervention: other (eliquis ) Lines/Catheters IV Catheter Type (from Nrsg): Peripheral IV Urinary Cath still in place: No Assessment/Plan Assessment/Plan 85 yo female with: 1. Acute Respiratory failure, improved and now on 3L NC. ? Bronchitis/URI/ PNA with reported history of Asthma and concerns for PJP raised this weekend as patient has been on CellCept chronically Pulmonary, Dr Ornelas following Continue nebulizers, steroids taper, Appreciate ID recs Bactrim d/c'd yesterday due to JUAN On Eliquis with A fib, dosed renally. 2. Paroxysmal A fib, no CAD per family but hx of Minor CVA ... patient should be now on anticoagulation given findings of A fib, family agreeable and will d/ c Plavix. Patient not on ASA as outpatient per Family so will also d/c Continue Cardizem and Eliquis renal dosing. 3. JUAN on CKD Renal function with creatinine back down to 2.3 up to 3.12 and BUN 114, also with Hyponatremia (corrected to hyperglycemia) 129 IVF especially in setting of hyperglycemia OFF Bactrim and Losartan as of yesterday Appreciate Dr Galan's evaluation today 4. Diabetes Mellitus: Continue Accu-Cheks and sliding scale. Continue Lantus at higher dose for now as patient with elevated BG. Check A1c 5. Severe Hypertension: continue Clonidine and Norvasc, maximizing Cardizem as tolerated for HR control and d/c HCTZ for now, if needs diuresis, use Lasix or Bumex. OFF Losartan due to JUAN 6. Pemphigoid disease per family, chronic for years and has been on Cellcept, ? renal dosing , will check with pharmacy 7. Chronic Pain: continue fentanyl patch for now 8. Severe Constipation: on multiple meds currently + enema and adding Mag citrate today but if still no BM will need CT abdo/pelvis. H/H stable Per family also on bowel regimen at home but had BM with bowel regimen at home. Prophylaxis: Continue Eliquis given A fib, PPI for GI ppx Disposition: Follow up labs and bowel function, also f/u CXR in AM, PT following Will start d/c planning once renal function better, will need home O2 likely. Subjective 24 Hr Interval Summary Free Text/Dictation This is a late entry, patient seen 03/08/16 at 3pm Patient had only 1 small BM despite multiple meds for bowel regimen Milk of mag added along with Enema and if no BM, will have CT abdo/pelvis in AM Renal function improved and appreciate Nephrology recommendations Son at bedside updated about current issues and labs Exam/Review of Systems Vital Signs Vitals Vital Signs Date Time Temp Pulse Resp B/P Pulse Ox O2 Delivery O2 Flow Rate FiO2 03/09/16 11:05 98.1 101 20 123/58 99 03/09/16 08:54 4.0 03/09/16 08:54 Nasal Cannula 03/08/16 21:02 40 Intake and Output 03/08/16 03/08/16 03/09/16 15:00 23:00 07:00 Intake Total 720 ml 100 ml Balance 720 ml 100 ml Exam Constitutional: alert, other (awake, on NC ) Respiratory: normal air movement, other (upper airway sounds, no wheezes ) Cardiovascular: irregular rhythm (A fib ) Gastrointestinal: bowel sounds, distended Extremities: normal pulses 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 YELLOW Urine Eosinophils % 0.0 Urine Glucose NEGATIVE Urine Hemoglobin NEGATIVE Urine Ketones NEGATIVE Urine Leukocyte Esterase NEGATIVE Urine Nitrite NEGATIVE Urine Specific [place] 1.015 Urine Total Protein NEGATIVE Urine Urobilinogen 0.2 E.U./dL Urine pH 5.5 Test 03/08/16 18:54 03/08/16 20:59 03/09/16 06:15 03/09/16 08:13 Bedside Glucose 164 94 199 Anion Gap 17 #H Blood Morphology Comment Blood Urea Nitrogen 117 H Calcium Level 7.5 L Carbon Dioxide Level 23 Chloride Level 99 Creatinine 2.69 H Differential Comment MANUAL DIFF Glucose Level 146 # Hematocrit 29.2 L Hemoglobin 9.6 L Lymphocytes # 1.0 Lymphocytes % 6.0 L Magnesium Level 3.5 H Mean Corpuscular Hemoglobin 26.3 L Mean Corpuscular Hemoglobin Concent 33.0 Mean Corpuscular Volume 79.8 L Mean Platelet Volume 8.4 Monocytes # 0.7 Monocytes % 4.0 Neutrophils # 15.2 H Neutrophils % 90.0 H Nucleated Red Blood Cells # Nucleated Red Blood Cells % Platelet Count 273 Potassium Level 4.8 Red Blood Count 3.66 L Red Cell Distribution Width 15.4 H Sodium Level 134 L White Blood Count 16.9 H Medications Medications Current Medications Brimonidine Tartrate (Alphagan 0.2%) 1 drop Q8 BOTH EYES Last administered on 03/09/16 06:17; Admin Dose 1 DROP; Start 03/01/16 at 06:00 Clonidine (Catapres) 0.2 mg TID PO Last administered on 03/08/16 20:51; Admin Dose 0.2 MG; Start 03/01/16 at 09:00 Latanoprost (Xalatan) 1 drop QHS BOTH EYES Last administered on 03/08/16 21: 43; Admin Dose 1 DROP; Start 03/01/16 at 21:00 Mycophenolate Mofetil (Cellcept) 500 mg BID PO Last administered on 03/08/16 20:51; Admin Dose 500 MG; Start 03/01/16 at 09:00 Gabapentin (Neurontin) 300 mg Q8H PO Last administered on 03/09/16 10:27; Admin Dose 300 MG; Start 03/01/16 at 02:00 Acetaminophen (Tylenol Tab) 650 mg Q4H PRN PO pain/fever Last administered on 03/08/16 12:49; Admin Dose 650 MG; Start 03/01/16 at 01:00 Ondansetron HCl (Zofran Inj) 4 mg Q4H PRN IV nausea Last administered on 02:23; Admin Dose 4 MG; Start 03/01/16 at 01:00 Morphine Sulfate (morphine) 2 mg Q2H PRN IV pain Last administered on 11:42; Admin Dose 2 MG; Start 03/01/16 at 01:00 Hydralazine HCl (Apresoline) 25 mg Q6H PRN PO sbp>160; Start 03/01/16 at 01:00 Diltiazem HCl (Cardizem) 30 mg Q6H PO Last administered on 03/08/16 20:50; Admin Dose 30 MG; Start 03/01/16 at 02:00 Miscellaneous Information 1 ea NOTE XX ; Start 03/01/16 at 02:00 Glucose (Glutose) 15 gm Q15M PRN PO DECREASED GLUCOSE; Start 03/01/16 at 02:00 Glucose (Glutose) 22.5 gm Q15M PRN PO DECREASED GLUCOSE; Start 03/01/16 at 02: 00 Dextrose (D50w Syringe) 25 ml Q15M PRN IV DECREASED GLUCOSE; Start 03/01/16 at 02:00 Dextrose (D50w Syringe) 50 ml Q15M PRN IV DECREASED GLUCOSE; Start 03/01/16 at 02:00 Glucagon (Glucagen) 1 mg Q15M PRN IM DECREASED GLUCOSE; Start 03/01/16 at 02: 00 Glucose (Glutose) 15 gm Q15M PRN BUCCAL DECREASED GLUCOSE; Start 03/01/16 at 02:00 Diagnostic Test (Pha) (Accucheck) 1 ea 02 XX Last administered on 03/06/16at 02 :35; Admin Dose 1 EA; Start 03/02/16 at 02:00 Bisacodyl (Dulcolax Supp) 10 mg DAILY PRN [place] CONSTIPATION Last administered on 03/08/16at 23:47; Admin Dose 10 MG; Start 03/03/16 at 11:30 Clotrimazole (Lotrimin Cr) 1 applic BID TOP Last administered on 03/08/16at 21: 34; Admin Dose 1 APPLIC; Start 03/03/16 at 13:30 Insulin Glargine (Lantus) 40 unit QHS SC Last administered on 03/07/16at 21:08 ; Admin Dose 40 UNIT; Start 03/04/16 at 21:00 Methylprednisolone Sodium Succinate (Solu-Medrol) 60 mg DAILY IV Last administered on 03/09/16at 10:30; Admin Dose 60 MG; Start 03/05/16 at 09:00 Docusate Sodium (Colace) 100 mg BID PO Last administered on 03/08/16at 20:51; Admin Dose 100 MG; Start 03/05/16 at 10:30 Magnesium Hydroxide 30 ml 30 ml DAILY PRN PO CONSTIPATION Last administered on 03/08/16at 12:37; Admin Dose 30 ML; Start 03/05/16 at 10:30 Sodium Chloride (NS) 1,000 ml @ 75 mls/hr [id number] IV Last administered on at 20:53; Admin Dose 75 MLS/HR; Start 03/06/16 at 14:30 Levofloxacin (Levaquin) 250 mg Q48H PO Last administered on 03/09/16at 06:17; Admin Dose 250 MG; Start 03/09/16 at 06:00 Lactulose (Enulose) 20 gm Q8 PO Last administered on 03/09/16at 06:17; Admin Dose 20 GM; Start 03/07/16 at 17:00 Apixaban (Eliquis) 2.5 mg BID PO Last administered on 03/08/16at 20:51; Admin Dose 2.5 MG; Start 03/07/16 at 21:00 Sodium Chloride (Deep Sea) 1 spray Q4H PRN NASAL NASAL CONGESTION; Start 03/07 at 17:30 Fentanyl (Duragesic 100 Mcg/Hr Patch) 1 patch Q72H TRANSDERM Last administered on 03/08/16at 09:41; Admin Dose 1 PATCH; Start 03/08/16 at 09:00 Magnesium Citrate (Citroma) 300 ml DAILY PRN PO CONSTIPATION Last administered on 03/08/16at 18:28; Admin Dose 300 ML; Start 03/08/16 at 17:00; Stop at 16:59 Ondansetron HCl (Zofran Inj) 4 mg Q4H PRN IV NAUSEA AND/OR VOMITING; Start at 23:30 AISHA TINEO Mar 09, 2016 11:46 AISHA TINEO Mar 09, 2016 11:46
--- NOTE | 2016-03-09 13:27 | PN ---
Date/Time of Note Date/Time of Note DATE: 03/09/16 TIME: 12:33 Assessment/Plan VTE Prophylaxis VTE Prophylaxis Intervention: other (Eliquis ) Lines/Catheters IV Catheter Type (from Nrsg): Peripheral IV Urinary Cath still in place: No Assessment/Plan Assessment/Plan 85 yo female with: 1. Acute Respiratory failure, improved and now on 3L NC. ? Bronchitis/URI/ PNA with reported history of Asthma and concerns for PJP raised this weekend as patient has been on CellCept chronically Pulmonary, Dr Ornelas following Continue nebulizers, steroids taper, Appreciate ID recs, off bactrim Given renal function and concerns for lower Hb, d/c Eliquis for now 2. Paroxysmal A fib, no CAD per family but hx of Minor CVA ... patient should be now on anticoagulation given findings of A fib, family agreeable and will d/ c Plavix. Patient not on ASA as outpatient per Family so will also d/c Continue Cardizem and Eliquis on hold given current GI issues . 3. JUAN on CKD Renal function with creatinine still 2.6 for now and BUN still at 114, Hyponatremia better with Na at 134. IVF especially in setting of hyperglycemia OFF Bactrim and Losartan as of yesterday Consulting Nephrology Dr Galan today for now 4. Diabetes Mellitus: Continue Accu-Cheks and sliding scale. Continue Lantus at higher dose for now as patient with elevated BG. Check A1c 5. Severe Hypertension: continue Clonidine and Norvasc, maximizing Cardizem as tolerated for HR control and d/c HCTZ for now, if needs diuresis, use Lasix or Bumex. OFF Losartan due to JUAN 6. Pemphigoid disease per family, chronic for years and has been on Cellcept. 7. Chronic Pain: on fentanyl patch, i have approached the family to d/c fentanyl patch as probably part of cause of bowel issues but they are reluctant , we will check CT abdo/pelvis first 8. Severe Constipation: on multiple meds currently + enema and Mag citrate overnight, still no BM this AM, bowel sounds present but no BM and per family episode of emesis. CT abdo/pelvis pending and NPO for now, GI consult and NGT if needed Prophylaxis: Continue Eliquis given A fib, PPI for GI ppx Disposition: Follow up Pulmonary recs today. Nephrology consult with Dr Galan. Follow up CT abdo/pelvis and GI eval pending CT abdo/pelvis results Subjective 24 Hr Interval Summary Free Text/Dictation Patient still with no BM and still distended despite everything given po and enema's, she also has vomited last night apparently, AXR was not showing obstruction but given current sxs CT abdo/pelvis pending and will have her NPO , depending on results may need further consults and NGT Exam/Review of Systems Vital Signs Vitals Vital Signs Date Time Temp Pulse Resp B/P Pulse Ox O2 Delivery O2 Flow Rate FiO2 03/09/16 11:05 98.1 101 20 123/58 99 03/09/16 08:54 4.0 03/09/16 08:54 Nasal Cannula 03/08/16 21:02 40 Intake and Output 03/08/16 03/08/16 03/09/16 15:00 23:00 07:00 Intake Total 720 ml 100 ml Balance 720 ml 100 ml Exam Constitutional: alert, frail Respiratory: diminished breath sounds (bases ), normal air movement Cardiovascular: irregular rhythm (A fib ) Gastrointestinal: distended (with some BS lower abodo but decreased small bowel , ? 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 YELLOW Urine Eosinophils % 0.0 Urine Glucose NEGATIVE Urine Hemoglobin NEGATIVE Urine Ketones NEGATIVE Urine Leukocyte Esterase NEGATIVE Urine Nitrite NEGATIVE Urine Specific [place] 1.015 Urine Total Protein NEGATIVE Urine Urobilinogen 0.2 E.U./dL Urine pH 5.5 Bedside Glucose 109 164 Test 03/08/16 20:59 03/09/16 06:15 03/09/16 08:13 03/09/16 12:03 Bedside Glucose 94 199 227 H Anion Gap 17 #H Blood Morphology Comment Blood Urea Nitrogen 117 H Calcium Level 7.5 L Carbon Dioxide Level 23 Chloride Level 99 Creatinine 2.69 H Differential Comment MANUAL DIFF Glucose Level 146 # Hematocrit 29.2 L Hemoglobin 9.6 L Lymphocytes # 1.0 Lymphocytes % 6.0 L Magnesium Level 3.5 H Mean Corpuscular Hemoglobin 26.3 L Mean Corpuscular Hemoglobin Concent 33.0 Mean Corpuscular Volume 79.8 L Mean Platelet Volume 8.4 Monocytes # 0.7 Monocytes % 4.0 Neutrophils # 15.2 H Neutrophils % 90.0 H Nucleated Red Blood Cells # Nucleated Red Blood Cells % Platelet Count 273 Potassium Level 4.8 Red Blood Count 3.66 L Red Cell Distribution Width 15.4 H Sodium Level 134 L White Blood Count 16.9 H Medications Medications Current Medications Brimonidine Tartrate (Alphagan 0.2%) 1 drop Q8 BOTH EYES Last administered on 03/09/16 06:17; Admin Dose 1 DROP; Start 03/01/16 at 06:00 Clonidine (Catapres) 0.2 mg TID PO Last administered on 03/08/16 20:51; Admin Dose 0.2 MG; Start 03/01/16 at 09:00 Latanoprost (Xalatan) 1 drop QHS BOTH EYES Last administered on 03/08/16 21: 43; Admin Dose 1 DROP; Start 03/01/16 at 21:00 Mycophenolate Mofetil (Cellcept) 500 mg BID PO Last administered on 03/08/16 20:51; Admin Dose 500 MG; Start 03/01/16 at 09:00 Gabapentin (Neurontin) 300 mg Q8H PO Last administered on 03/09/16 10:27; Admin Dose 300 MG; Start 03/01/16 at 02:00 Acetaminophen (Tylenol Tab) 650 mg Q4H PRN PO pain/fever Last administered on 03/08/16 12:49; Admin Dose 650 MG; Start 03/01/16 at 01:00 Ondansetron HCl (Zofran Inj) 4 mg Q4H PRN IV nausea Last administered on 02:23; Admin Dose 4 MG; Start 03/01/16 at 01:00 Morphine Sulfate (morphine) 2 mg Q2H PRN IV pain Last administered on 11:42; Admin Dose 2 MG; Start 03/01/16 at 01:00 Hydralazine HCl (Apresoline) 25 mg Q6H PRN PO sbp>160; Start 03/01/16 at 01:00 Diltiazem HCl (Cardizem) 30 mg Q6H PO Last administered on 03/08/16at 20:50; Admin Dose 30 MG; Start 03/01/16 at 02:00 Miscellaneous Information 1 ea NOTE XX ; Start 03/01/16 at 02:00 Glucose (Glutose) 15 gm Q15M PRN PO DECREASED GLUCOSE; Start 03/01/16 at 02:00 Glucose (Glutose) 22.5 gm Q15M PRN PO DECREASED GLUCOSE; Start 03/01/16 at 02: 00 Dextrose (D50w Syringe) 25 ml Q15M PRN IV DECREASED GLUCOSE; Start 03/01/16 at 02:00 Dextrose (D50w Syringe) 50 ml Q15M PRN IV DECREASED GLUCOSE; Start 03/01/16 at 02:00 Glucagon (Glucagen) 1 mg Q15M PRN IM DECREASED GLUCOSE; Start 03/01/16 at 02: 00 Glucose (Glutose) 15 gm Q15M PRN BUCCAL DECREASED GLUCOSE; Start 03/01/16 at 02:00 Diagnostic Test (Pha) (Accucheck) 1 ea 02 XX Last administered on 03/06/16at 02 :35; Admin Dose 1 EA; Start 03/02/16 at 02:00 Bisacodyl (Dulcolax Supp) 10 mg DAILY PRN [place] CONSTIPATION Last administered on 03/08/16at 23:47; Admin Dose 10 MG; Start 03/03/16 at 11:30 Clotrimazole (Lotrimin Cr) 1 applic BID TOP Last administered on 03/08/16at 21: 34; Admin Dose 1 APPLIC; Start 03/03/16 at 13:30 Insulin Glargine (Lantus) 40 unit QHS SC Last administered on 03/07/16at 21:08 ; Admin Dose 40 UNIT; Start 03/04/16 at 21:00 Methylprednisolone Sodium Succinate (Solu-Medrol) 60 mg DAILY IV Last administered on 03/09/16at 10:30; Admin Dose 60 MG; Start 03/05/16 at 09:00 Docusate Sodium (Colace) 100 mg BID PO Last administered on 03/08/16at 20:51; Admin Dose 100 MG; Start 03/05/16 at 10:30 Magnesium Hydroxide 30 ml 30 ml DAILY PRN PO CONSTIPATION Last administered on 03/08/16 12:37; Admin Dose 30 ML; Start 03/05/16 at 10:30 Sodium Chloride (NS) 1,000 ml @ 75 mls/hr [id number] IV Last administered on 20:53; Admin Dose 75 MLS/HR; Start 03/06/16 at 14:30 Levofloxacin (Levaquin) 250 mg Q48H PO Last administered on 03/09/16at 06:17; Admin Dose 250 MG; Start 03/09/16 at 06:00 Lactulose (Enulose) 20 gm Q8 PO Last administered on 03/09/16 06:17; Admin Dose 20 GM; Start 03/07/16 at 17:00 Sodium Chloride (Deep Sea) 1 spray Q4H PRN NASAL NASAL CONGESTION; Start 03/07 at 17:30 Fentanyl (Duragesic 100 Mcg/Hr Patch) 1 patch Q72H TRANSDERM Last administered on 03/08/16at 09:41; Admin Dose 1 PATCH; Start 03/08/16 at 09:00 Magnesium Citrate (Citroma) 300 ml DAILY PRN PO CONSTIPATION Last administered on 03/08/16 18:28; Admin Dose 300 ML; Start 03/08/16 at 17:00; Stop at 16:59 Ondansetron HCl (Zofran Inj) 4 mg Q4H PRN IV NAUSEA AND/OR VOMITING; Start at 23:30 AISHA TINEO Mar 09, 2016 12:47
--- NOTE | 2016-03-09 13:35 | CONS ---
Date/Time of Note Date/Time of Note DATE: 03/09/16 TIME: 13:33 Assessment/Plan Assessment/Plan Chief Complaint/Hosp Course - Acute Kidney Injury - Chronic Kidney Disease ( DM nephropathy + HTN Nephrosclerosis ) - Anemia - Pulmonary disease / COPD - Pemphigoid Dz ( Immunosuppressed ) - Hypertension - Acidosis PLAN: JUAN secondary to ATN & Decrease renal Perfusion No Proteinuria on the UA ? Acute Interstitial Nephritis + Underlying renal disease due to poorly controlled DM & HTN Monitor renal closely Electrolytes stable Keeping I/O positive Problems: Consultation Date/Type/Reason Admit Date/Time Feb 29, 2016 at 18:54 Initial Consult Date 03/08/16 Type of Consultation: NEPHROLOGY Reason for Consultation JUAN / CKD 24 HR Interval Summary Constitutional: improved, no complaints Exam/Review of Systems Vital Signs Vitals Vital Signs Date Time Temp Pulse Resp B/P Pulse Ox O2 Delivery O2 Flow Rate FiO2 03/09/16 12:17 128 03/09/16 11:05 98.1 20 123/58 99 03/09/16 08:54 4.0 03/09/16 08:54 Nasal Cannula 03/08/16 21:02 40 Intake and Output 03/08/16 03/08/16 03/09/16 15:00 23:00 07:00 Intake Total 720 ml 100 ml Balance 720 ml 100 ml Exam Constitutional: alert Psych: no complaints Head: normocephalic Eyes: nl conjunctiva Neck: jvd Respiratory: crackles/rales Cardiovascular: edema, regular rate and rhythm, systolic murmur Results Result Diagram: 03/09/16 0615 03/09/16 0615 Results 24 hrs Laboratory Tests Test 03/08/16 13:40 03/08/16 15:46 03/08/16 18:13 03/08/16 18:54 Creatine Kinase 54 Urine Bilirubin NEGATIVE Urine Clarity CLEAR Urine Color LT. YELLOW Urine Eosinophils % 0.0 Urine Glucose NEGATIVE Urine Hemoglobin NEGATIVE Urine Ketones NEGATIVE Urine Leukocyte Esterase NEGATIVE Urine Nitrite NEGATIVE Urine Specific [place] 1.015 Urine Total Protein NEGATIVE Urine Urobilinogen 0.2 E.U./dL Urine pH 5.5 Bedside Glucose 109 164 Test 03/08/16 20:59 03/09/16 06:15 03/09/16 08:13 03/09/16 12:03 Bedside Glucose 94 199 227 H Anion Gap 17 #H Blood Morphology Comment Blood Urea Nitrogen 117 H Calcium Level 7.5 L Carbon Dioxide Level 23 Chloride Level 99 Creatinine 2.69 H Differential Comment MANUAL DIFF Glucose Level 146 # Hematocrit 29.2 L Hemoglobin 9.6 L Lymphocytes # 1.0 Lymphocytes % 6.0 L Magnesium Level 3.5 H Mean Corpuscular Hemoglobin 26.3 L Mean Corpuscular Hemoglobin Concent 33.0 Mean Corpuscular Volume 79.8 L Mean Platelet Volume 8.4 Monocytes # 0.7 Monocytes % 4.0 Neutrophils # 15.2 H Neutrophils % 90.0 H Nucleated Red Blood Cells # Nucleated Red Blood Cells % Platelet Count 273 Potassium Level 4.8 Red Blood Count 3.66 L Red Cell Distribution Width 15.4 H Sodium Level 134 L White Blood Count 16.9 H Medications Medications Current Medications Brimonidine Tartrate (Alphagan 0.2%) 1 drop Q8 BOTH EYES Last administered on 03/09/16 06:17; Admin Dose 1 DROP; Start 03/01/16 at 06:00 Clonidine (Catapres) 0.2 mg TID PO Last administered on 03/08/16 20:51; Admin Dose 0.2 MG; Start 03/01/16 at 09:00 Latanoprost (Xalatan) 1 drop QHS BOTH EYES Last administered on 03/08/16 21: 43; Admin Dose 1 DROP; Start 03/01/16 at 21:00 Mycophenolate Mofetil (Cellcept) 500 mg BID PO Last administered on 03/08/16 20:51; Admin Dose 500 MG; Start 03/01/16 at 09:00 Gabapentin (Neurontin) 300 mg Q8H PO Last administered on 03/09/16 10:27; Admin Dose 300 MG; Start 03/01/16 at 02:00 Acetaminophen (Tylenol Tab) 650 mg Q4H PRN PO pain/fever Last administered on 03/08/16 12:49; Admin Dose 650 MG; Start 03/01/16 at 01:00 Ondansetron HCl (Zofran Inj) 4 mg Q4H PRN IV nausea Last administered on 02:23; Admin Dose 4 MG; Start 03/01/16 at 01:00 Morphine Sulfate (morphine) 2 mg Q2H PRN IV pain Last administered on 11:42; Admin Dose 2 MG; Start 03/01/16 at 01:00 Hydralazine HCl (Apresoline) 25 mg Q6H PRN PO sbp>160; Start 03/01/16 at 01:00 Diltiazem HCl (Cardizem) 30 mg Q6H PO Last administered on 03/08/16at 20:50; Admin Dose 30 MG; Start 03/01/16 at 02:00 Miscellaneous Information 1 ea NOTE XX ; Start 03/01/16 at 02:00 Glucose (Glutose) 15 gm Q15M PRN PO DECREASED GLUCOSE; Start 03/01/16 at 02:00 Glucose (Glutose) 22.5 gm Q15M PRN PO DECREASED GLUCOSE; Start 03/01/16 at 02: 00 Dextrose (D50w Syringe) 25 ml Q15M PRN IV DECREASED GLUCOSE; Start 03/01/16 at 02:00 Dextrose (D50w Syringe) 50 ml Q15M PRN IV DECREASED GLUCOSE; Start 03/01/16 at 02:00 Glucagon (Glucagen) 1 mg Q15M PRN IM DECREASED GLUCOSE; Start 03/01/16 at 02: 00 Glucose (Glutose) 15 gm Q15M PRN BUCCAL DECREASED GLUCOSE; Start 03/01/16 at 02:00 Diagnostic Test (Pha) (Accucheck) 1 ea 02 XX Last administered on 03/06/16at 02 :35; Admin Dose 1 EA; Start 03/02/16 at 02:00 Bisacodyl (Dulcolax Supp) 10 mg DAILY PRN [place] CONSTIPATION Last administered on 03/08/16at 23:47; Admin Dose 10 MG; Start 03/03/16 at 11:30 Clotrimazole (Lotrimin Cr) 1 applic BID TOP Last administered on 03/08/16at 21: 34; Admin Dose 1 APPLIC; Start 03/03/16 at 13:30 Insulin Glargine (Lantus) 40 unit QHS SC Last administered on 03/07/16at 21:08 ; Admin Dose 40 UNIT; Start 03/04/16 at 21:00 Methylprednisolone Sodium Succinate (Solu-Medrol) 60 mg DAILY IV Last administered on 03/09/16at 10:30; Admin Dose 60 MG; Start 03/05/16 at 09:00 Docusate Sodium (Colace) 100 mg BID PO Last administered on 03/08/16 20:51; Admin Dose 100 MG; Start 03/05/16 at 10:30 Magnesium Hydroxide 30 ml 30 ml DAILY PRN PO CONSTIPATION Last administered on 03/08/16 12:37; Admin Dose 30 ML; Start 03/05/16 at 10:30 Sodium Chloride (NS) 1,000 ml @ 75 mls/hr [id number] IV Last administered on 20:53; Admin Dose 75 MLS/HR; Start 03/06/16 at 14:30 Levofloxacin (Levaquin) 250 mg Q48H PO Last administered on 03/09/16 06:17; Admin Dose 250 MG; Start 03/09/16 at 06:00 Lactulose (Enulose) 20 gm Q8 PO Last administered on 03/09/16 06:17; Admin Dose 20 GM; Start 03/07/16 at 17:00 Sodium Chloride (Deep Sea) 1 spray Q4H PRN NASAL NASAL CONGESTION; Start 03/07 at 17:30 Fentanyl (Duragesic 100 Mcg/Hr Patch) 1 patch Q72H TRANSDERM Last administered on 03/08/16 09:41; Admin Dose 1 PATCH; Start 03/08/16 at 09:00 Magnesium Citrate (Citroma) 300 ml DAILY PRN PO CONSTIPATION Last administered on 03/08/16 18:28; Admin Dose 300 ML; Start 03/08/16 at 17:00; Stop at 16:59 Ondansetron HCl (Zofran Inj) 4 mg Q4H PRN IV NAUSEA AND/OR VOMITING; Start at 23:30 KAMERON EUBANKS MD Mar 09, 2016 13:35
[2016-03-09] MEDS ORDERED: PANTOPRAZOLE 40 MG INJ IV SCH (14:30)
[2016-03-09] MEDS ORDERED: LEVOFLOXACIN 250MG/D5W (PMX) 50 ML IVPB SCH (14:30)
--- NOTE | 2016-03-09 15:24 | RADRPT ---
PROCEDURE: CT Abdomen and Pelvis without contrast. CLINICAL INDICATION: Abdominal distension. TECHNIQUE: Multiple contiguous axial CT images of the abdomen and pelvis were obtained without the administration of intravenous contrast. Coronal and sagittal reconstructions were also performed. CTDIvol (mGy): 23.18; Total Exam DLP (mGy-cm): 1308.11. COMPARISON: None. FINDINGS: Limited imaging of the lower thorax demonstrates scattered atelectatic changes. The liver and spleen are homogeneous in density. The gallbladder is surgically absent. The pancrea s and adrenal glands are unremarkable. The kidneys are symmetric in size. Mild symmetric pelviectasis is observed. There is no hydronephros is or abnormal perinephric inflammation. There are no nephroureteral stones. The abdominal aorta is normal in caliber. Atherosclerotic calcification is present. There is no per iaortic / retroperitoneal lymphadenopathy. Mild fluid-filled distension of the stomach is observed. The small intestines are unremarkable. Di ffuse gaseous distension of the colon is present predominately affecting the ascending and transvers e colon. There is no intestinal wall thickening. Fluid stool is seen within the right colon. Ther e is no evidence of pneumatosis or pneumoperitoneum. Scattered pockets of trapped air are seen withi n the periphery of the lumen of the right colon. The appendix is normal. There are no focal inflam matory changes of the mesentery. There is no mesenteric lymphadenopathy. There is no ascites. The bladder is distended and normal in contour. The uterus is absent. The adnexa are unremarkable. There is no free pelvic fluid. There is no pelvic sidewall or inguinal lymphadenopathy. Bony mineralization is decreased. Severe L3 compression fracture with evidence of vertebroplasty is present. Degenerative changes are seen throughout the spine. The abdominal wall is thin. There i s a tiny fat containing right periumbilical hernia. IMPRESSION: No evidence of abdominopelvic mass, lymphadenopathy or focal acute inflammatory pathology. Nonspecific gaseous distension of the colon with fluid stool throughout the right colon. No evidenc e of pneumatosis or pneumoperitoneum. Bony demineralization with severe L3 compression fracture with evidence of vertebroplasty. RPTAT: HLST .Jyoti Gomez MD, MD Date Time Electronically viewed and signed by .Jyoti Gomez MD, MD on 03/09/2016 15:23 .T/
--- NOTE | 2016-03-09 18:51 | PN ---
DATE: 03/09/2016 SUBJECTIVE: Patient is lying comfortably in bed. Sounds congested. family at bedside. Family com plains that she did not have a bowel movement since Saturday. She is in no distress. No fevers. Tem perature 98, pulse 101, respirations 20, blood pressure 114/56, saturation 96% on 4 L. WBC 16.9, H and H 9.6 and 29.2, platelets 273, neutrophils 90, no bands. BUN 117, creatinine 2.69. DIAGNOSTICS: A chest x-ray this morning revealed mild atelectasis at the lung bases, unchanged. No pneumothorax, no pleural effusions. CT of the abdomen revealed no evidence of abdominopelvic mass, lymphadenopathy, or focal acute inflammatory pathology. No evidence of pneumatosis or pneumoperito neum. There was a gaseous distention of the colon with fluid. Stool throughout the right colon. ANTIMICROBIALS: The patient remains on Levaquin. She is also on IV steroids. PHYSICAL EXAMINATION GENERAL: This is a morbidly obese, elderly woman who is lying comfortably in bed. HEENT: Head atraumatic, normocephalic. Sclerae are anicteric. Buccal mucosa dry. NECK: Supple. CHEST: Rise symmetrical. Breath sounds with scattered crackles to mostly upper rodriguez. ABDOMEN: Distended, semi-soft, with hyperactive bowel tones left upper quadrant and normal bowel to mayda, slightly diminished throughout elsewhere. EXTREMITIES: With trace edema. ASSESSMENT 1. Systemic inflammatory response syndrome with leukocytosis, likely steroid induced. 2. Acute hypoxemic respiratory failure, questionable aspiration pneumonia. 3. Chronic obstructive pulmonary disease. 4. [id number] kidney disease. 5. Diabetes. 6. 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 7. Obesity. PLAN: The patient remains unchanged. She is being followed by pulmonary and nephrology teams. A C T of the abdomen revealed no acute pathology. Patient is getting laxatives and received enemas alre naa. We are going to continue her on current regimen. Repeat cultures p.r.n. Of note, her urine culture since March 08 is negative. Dictated By: LEÓN PAK FOOD HANDLER for MIMI KHOURY MD NI/NTS Conf#: [id number] DID#: [id number]
[2016-03-09] MEDS: LATANOPROST 0.005% 2.5 ML OPH BOTH EYES SCH (21:08)
[2016-03-09] MEDS: INSULIN GLARGINE [LANtus] 3 ML PEN SC SCH (22:19)
--- NOTE | 2016-03-09 23:07 | CONS ---
Date/Time of Note Date/Time of Note DATE: 03/09/16 TIME: 22:58 Assessment/Plan Assessment/Plan Chief Complaint/Hosp Course Impression: - constipation but with CT showing dilated right colon with liquid stool - Chronic Kidney Disease ( DM nephropathy + HTN Nephrosclerosis ) - Anemia - Pulmonary disease / COPD - Pemphigoid Dz ( Immunosuppressed ) - Hypertension - Acidosis Recommendation: - I wonder if the dilation and fluid filled colon is due to component of dysmotility. Will try empiric reglan to see if it helps. If not, will likely need colonoscopy with biopsies to evaluate. - motility problem also suggested by her poorly controlled DM - continue bowel regimen as you are doing - continue other supportive care Problems: Consultation Date/Type/Reason Admit Date/Time Feb 29, 2016 at 18:54 Type of Consultation: GI Hx of Present Illness Ms. Jalloh is admitted at [facility] with a 2 day history of increasing shortness of breath. She is found to have systemic inflammatory response syndrome with leukocytosis, likely steroid induced. There is also a possibility of aspiration pneumonia. GI consulted due to constipation with CT showing dilationof right colon with liquid stool. Still has SOB and obesity. No headache, jaundice, skin rash, melena, BRBPR, n/v. All point ROS administered, pertinent positives and negatives in HPI otherwise negative. Constitutional: improved, no complaints Eyes: no complaints ENT: no complaints Respiratory: shortness of breath Cardiovascular: no complaints Gastrointestinal: no complaints Genitourinary: no complaints Psychological: no complaints Past Medical History Medical History: coronary artery disease, diabetes, hypertension Past Surgical History COPD, paroxymal atrial fibrillation Past Surgical Hx: no surgical history Family History Significant Family History: no pertinent family hx Social History Alcohol Use: none Smoking Status: Current every day smoker Drug Use: none Exam/Review of Systems Vital Signs Vitals Vital Signs Date Time Temp Pulse Resp B/P Pulse Ox O2 Delivery O2 Flow Rate FiO2 03/09/16 21:23 126 03/09/16 20:13 24 96 Nasal Cannula 4.0 03/09/16 20:13 97.7 151/76 03/08/16 21:02 40 Intake and Output 03/08/16 03/08/16 03/09/16 15:00 23:00 07:00 Intake Total 720 ml 100 ml Balance 720 ml 100 ml Exam Constitutional: frail, obese Head: atraumatic, normocephalic Eyes: EOMI, nl conjunctiva, nl lids, nl sclera ENMT: mucosa pink and moist, nl external ears & nose, nl lips & teeth, nl nasal mucosa & septum Neck: non-tender, supple Respiratory: labored breathing, normal air movement, wheezing Cardiovascular: nl pulses, regular rate and rhythm Gastrointestinal: bowel sounds, non-tender, soft Results Result Diagram: 03/09/16 0615 03/09/16 0615 Results 24 hrs Laboratory Tests Test 03/09/16 06:15 03/09/16 08:13 03/09/16 12:03 03/09/16 17:30 Anion Gap 17 #H Blood Morphology Comment Blood Urea Nitrogen 117 H Calcium Level 7.5 L Carbon Dioxide Level 23 Chloride Level 99 Creatinine 2.69 H Differential Comment MANUAL DIFF Glucose Level 146 # Hematocrit 29.2 L Hemoglobin 9.6 L Lymphocytes # 1.0 Lymphocytes % 6.0 L Magnesium Level 3.5 H Mean Corpuscular Hemoglobin 26.3 L Mean Corpuscular Hemoglobin Concent 33.0 Mean Corpuscular Volume 79.8 L Mean Platelet Volume 8.4 Monocytes # 0.7 Monocytes % 4.0 Neutrophils # 15.2 H Neutrophils % 90.0 H Nucleated Red Blood Cells # Nucleated Red Blood Cells % Platelet Count 273 Potassium Level 4.8 Red Blood Count 3.66 L Red Cell Distribution Width 15.4 H Sodium Level 134 L White Blood Count 16.9 H Bedside Glucose 199 227 H 220 Test 03/09/16 22:15 Bedside Glucose 208 Medications Medications Current Medications Brimonidine Tartrate (Alphagan 0.2%) 1 drop Q8 BOTH EYES Last administered on 03/09/16 21:08; Admin Dose 1 DROP; Start 03/01/16 at 06:00 Clonidine (Catapres) 0.2 mg TID PO Last administered on 03/09/16 21:06; Admin Dose 0.2 MG; Start 03/01/16 at 09:00 Latanoprost (Xalatan) 1 drop QHS BOTH EYES Last administered on 03/09/16 21: 08; Admin Dose 1 DROP; Start 03/01/16 at 21:00 Mycophenolate Mofetil (Cellcept) 500 mg BID PO Last administered on 03/09/16 21:04; Admin Dose 500 MG; Start 03/01/16 at 09:00 Gabapentin (Neurontin) 300 mg Q8H PO Last administered on 03/09/16at 10:27; Admin Dose 300 MG; Start 03/01/16 at 02:00 Acetaminophen (Tylenol Tab) 650 mg Q4H PRN PO pain/fever Last administered on 03/08/16at 12:49; Admin Dose 650 MG; Start 03/01/16 at 01:00 Ondansetron HCl (Zofran Inj) 4 mg Q4H PRN IV nausea Last administered on at 02:23; Admin Dose 4 MG; Start 03/01/16 at 01:00 Morphine Sulfate (morphine) 2 mg Q2H PRN IV pain Last administered on at 11:42; Admin Dose 2 MG; Start 03/01/16 at 01:00 Hydralazine HCl (Apresoline) 25 mg Q6H PRN PO sbp>160; Start 03/01/16 at 01:00 Diltiazem HCl (Cardizem) 30 mg Q6H PO Last administered on 03/09/16at 21:06; Admin Dose 30 MG; Start 03/01/16 at 02:00 Miscellaneous Information 1 ea NOTE XX ; Start 03/01/16 at 02:00 Glucose (Glutose) 15 gm Q15M PRN PO DECREASED GLUCOSE; Start 03/01/16 at 02:00 Glucose (Glutose) 22.5 gm Q15M PRN PO DECREASED GLUCOSE; Start 03/01/16 at 02: 00 Dextrose (D50w Syringe) 25 ml Q15M PRN IV DECREASED GLUCOSE; Start 03/01/16 at 02:00 Dextrose (D50w Syringe) 50 ml Q15M PRN IV DECREASED GLUCOSE; Start 03/01/16 at 02:00 Glucagon (Glucagen) 1 mg Q15M PRN IM DECREASED GLUCOSE; Start 03/01/16 at 02: 00 Glucose (Glutose) 15 gm Q15M PRN BUCCAL DECREASED GLUCOSE; Start 03/01/16 at 02:00 Diagnostic Test (Pha) (Accucheck) 1 ea 02 XX Last administered on 03/06/16at 02 :35; Admin Dose 1 EA; Start 03/02/16 at 02:00 Bisacodyl (Dulcolax Supp) 10 mg DAILY PRN ND CONSTIPATION Last administered on 03/08/16 23:47; Admin Dose 10 MG; Start 03/03/16 at 11:30 Clotrimazole (Lotrimin Cr) 1 applic BID TOP Last administered on 03/09/16at 21: 05; Admin Dose 1 APPLIC; Start 03/03/16 at 13:30 Insulin Glargine (Lantus) 40 unit QHS SC Last administered on 03/09/16 22:19 ; Admin Dose 40 UNIT; Start 03/04/16 at 21:00 Methylprednisolone Sodium Succinate (Solu-Medrol) 60 mg DAILY IV Last administered on 03/09/16 10:30; Admin Dose 60 MG; Start 03/05/16 at 09:00 Docusate Sodium (Colace) 100 mg BID PO Last administered on 03/09/16 21:04; Admin Dose 100 MG; Start 03/05/16 at 10:30 Magnesium Hydroxide 30 ml 30 ml DAILY PRN PO CONSTIPATION Last administered on 03/08/16 12:37; Admin Dose 30 ML; Start 03/05/16 at 10:30 Sodium Chloride (NS) 1,000 ml @ 75 mls/hr [id number] IV Last administered on 22:19; Admin Dose 75 MLS/HR; Start 03/06/16 at 14:30 Lactulose (Enulose) 20 gm Q8 PO Last administered on 03/09/16at 21:08; Admin Dose 20 GM; Start 03/07/16 at 17:00 Sodium Chloride (Deep Sea) 1 spray Q4H PRN NASAL NASAL CONGESTION; Start 03/07 at 17:30 Fentanyl (Duragesic 100 Mcg/Hr Patch) 1 patch Q72H TRANSDERM Last administered on 03/08/16at 09:41; Admin Dose 1 PATCH; Start 03/08/16 at 09:00 Magnesium Citrate (Citroma) 300 ml DAILY PRN PO CONSTIPATION Last administered on 03/08/16 18:28; Admin Dose 300 ML; Start 03/08/16 at 17:00; Stop at 16:59 Ondansetron HCl 4 mg 4 mg Q4H PRN IV NAUSEA AND/OR VOMITING; Start 03/08/16 at 23:30 Levofloxacin/ Dextrose (Levaquin 250 Mg/ D5W 50 ml (Pmx)) 50 ml @ 50 mls/hr Q48H IVPB ; Start 03/11/16 at 06:00 Pantoprazole (Protonix Iv) 40 mg BID@06,18 IV ; Start 03/10/16 at 06:00 DEONTE DUARTE MD Mar 09, 2016 23:07
[2016-03-10] VITALS (12 sets, daily range): BP systolic 105–157; BP diastolic 53–65; PULSE 111–129; RESP 17–20
[2016-03-10] MEDS: ALBUTEROL/IPRATROPIUM (NEB) 3 ML AMP HHN SCH ×4 (01:38→20:23)
[2016-03-10] MEDS: GABAPENTIN 300 MG CAP PO SCH ×3 (02:19→18:29)
[2016-03-10] MEDS: DILTIAZEM 30 MG TAB PO SCH ×4 (02:19→20:58)
[2016-03-10] MEDS: ACCUCHECK AT 2AM (Patients on SS coverage) XX SCH (02:21)
[2016-03-10] MEDS: PANTOPRAZOLE 40 MG INJ IV SCH ×2 (05:52→18:28)
[2016-03-10] MEDS: BRIMONIDINE 0.2% 5 ML BTL BOTH EYES SCH ×3 (05:52→21:03)
[2016-03-10] MEDS: LACTULOSE 30ML CUP PO SCH ×3 (05:54→21:07)
[2016-03-10 06:45] LABS: HEMATOCRIT 27.9 % (37.0-47.0); MEAN CORPUSCULAR HEMOGLOBIN 25.9 pg (29.0-33.0); MEAN CORPUSCULAR HGB CONC 32.4 g/dl (32.0-37.0); MEAN CORPUSCULAR VOLUME 80.2 fl (82.0-101.0); MEAN PLATELET VOLUME 8.3 fl (7.4-10.4); PLATELET COUNT 289 10^3/UL (140-440); RED BLOOD COUNT 3.48 10^6/ul (4.20-5.40); RED CELL DISTRIBUTION WIDTH 15.3 % (11.5-14.5); UNCORRECTED WBC 13.9 10^3/ul (4.8-10.8); WHITE BLOOD COUNT 13.9 10^3/ul (4.8-10.8)
[2016-03-10 06:51] LABS: ALBUMIN 2.8 g/dl (3.3-4.9)
[2016-03-10 06:52] LABS: POTASSIUM 5.5 mmol/L (3.5-5.1)
[2016-03-10 06:54] LABS: ALBUMIN/GLOBULIN RATIO 1.27; CREATININE 2.85 mg/dl (0.44-1.00)
[2016-03-10 06:55] LABS: CALCIUM 7.9 mg/dl (8.4-10.2)
[2016-03-10 07:05] LABS: CONDITION 1; LH ANALYZER COMMENTS 1; MAGNESIUM 3.9 mg/dl (1.7-2.5); PHOSPHORUS 6.8 mg/dl (2.5-4.9)
[2016-03-10] MEDS: INSULIN ASPART [NOVOLOG] 3 ML PEN SC SCH ×7 (08:24→21:00)
[2016-03-10] MEDS: METHYLPREDNISOLONE 125 MG INJ IV SCH (08:43)
[2016-03-10] MEDS: DOCUSATE SODIUM 100 MG CAP PO SCH ×2 (08:44→20:57)
[2016-03-10] MEDS: MYCOPHENOLATE 250 MG CAP PO SCH ×2 (08:45→20:57)
[2016-03-10] MEDS: CLOTRIMAZOLE 1% 30 GM CR TOP SCH ×2 (08:45→21:03)
--- NOTE | 2016-03-10 09:51 | CONS ---
Date/Time of Note Date/Time of Note DATE: 03/10/16 TIME: 09:48 Assessment/Plan Assessment/Plan Additional Assessment/Plan - constipation but with CT showing dilated right colon with liquid stool - Chronic Kidney Disease ( DM nephropathy + HTN Nephrosclerosis ) - Anemia - Pulmonary disease / COPD - Pemphigoid Dz ( Immunosuppressed ) - Hypertension - Acidosis Recommendation: - Will continue empiric reglan and mag citrate to see if it helps. If not, will likely need colonoscopy with biopsies to evaluate. - motility problem also suggested by her poorly controlled DM - continue bowel regimen as you are doing - continue other supportive care Problems: Consultation Date/Type/Reason Admit Date/Time Feb 29, 2016 at 18:54 Initial Consult Date 03/08/16 Type of Consultation: GI 24 HR Interval Summary Free Text/Dictation We will start mag citrate daily No report of bowel movement with addition of Reglan Family hesitant about colonoscopy Want to continue conservative management before considering colonoscopy Exam/Review of Systems Vital Signs Vitals Vital Signs Date Time Temp Pulse Resp B/P Pulse Ox O2 Delivery O2 Flow Rate FiO2 03/10/16 09:38 4.0 03/10/16 09:33 112 26 100 Nasal Cannula 03/10/16 07:25 97.6 131/58 03/08/16 21:02 40 Intake and Output 03/09/16 03/09/16 03/10/16 14:59 22:59 06:59 Intake Total 1587 ml Balance 1587 ml Exam Constitutional: Obese Head: atraumatic, normocephalic Eyes: EOMI, nl conjunctiva, nl lids, nl sclera ENMT: mucosa pink and moist, nl external ears & nose, nl lips & teeth, nl nasal mucosa & septum Neck: non-tender, supple Respiratory: labored breathing, normal air movement, wheezing Cardiovascular: nl pulses, regular rate and rhythm Gastrointestinal: bowel sounds, non-tender, soft Results Result Diagram: 03/10/16 0550 03/10/16 0550 Results 24 hrs Laboratory Tests Test 03/09/16 12:03 03/09/16 17:30 03/09/16 22:15 03/10/16 02:21 Bedside Glucose 227 H 220 208 195 Test 03/10/16 05:50 03/10/16 08:18 Alanine Aminotransferase (ALT/SGPT) 35 Albumin 2.8 L Albumin/Globulin Ratio 1.27 Alkaline Phosphatase 44 Anion Gap 17 H Aspartate Amino Transf (AST/SGOT) 16 Blood Morphology Comment Blood Urea Nitrogen 125 H Calcium Level 7.9 L Carbon Dioxide Level 23 Chloride Level 101 Creatinine 2.85 H Direct Bilirubin 0.00 Globulin 2.20 Glucose Level 180 Hematocrit 27.9 L Hemoglobin 9.0 L Indirect Bilirubin 0.0 Magnesium Level 3.9 H Mean Corpuscular Hemoglobin 25.9 L Mean Corpuscular Hemoglobin Concent 32.4 Mean Corpuscular Volume 80.2 L Mean Platelet Volume 8.3 Phosphorus Level 6.8 H Platelet Count 289 Potassium Level 5.5 H Red Blood Count 3.48 L Red Cell Distribution Width 15.3 H Sodium Level 135 Total Bilirubin 0.0 L Total Protein 5.0 L White Blood Count 13.9 H Bedside Glucose 188 Medications Medications Current Medications Brimonidine Tartrate (Alphagan 0.2%) 1 drop Q8 BOTH EYES Last administered on 03/10/16 05:52; Admin Dose 1 DROP; Start 03/01/16 at 06:00 Clonidine (Catapres) 0.2 mg TID PO Last administered on 03/10/16 08:44; Admin Dose 0.2 MG; Start 03/01/16 at 09:00 Latanoprost (Xalatan) 1 drop QHS BOTH EYES Last administered on 03/09/16 21: 08; Admin Dose 1 DROP; Start 03/01/16 at 21:00 Mycophenolate Mofetil (Cellcept) 500 mg BID PO Last administered on 03/10/16 08:45; Admin Dose 500 MG; Start 03/01/16 at 09:00 Gabapentin (Neurontin) 300 mg Q8H PO Last administered on 03/10/16 02:19; Admin Dose 300 MG; Start 03/01/16 at 02:00 Acetaminophen (Tylenol Tab) 650 mg Q4H PRN PO pain/fever Last administered on 03/08/16 12:49; Admin Dose 650 MG; Start 03/01/16 at 01:00 Ondansetron HCl (Zofran Inj) 4 mg Q4H PRN IV nausea Last administered on 02:23; Admin Dose 4 MG; Start 03/01/16 at 01:00 Morphine Sulfate (morphine) 2 mg Q2H PRN IV pain Last administered on at 11:42; Admin Dose 2 MG; Start 03/01/16 at 01:00 Hydralazine HCl (Apresoline) 25 mg Q6H PRN PO sbp>160; Start 03/01/16 at 01:00 Diltiazem HCl (Cardizem) 30 mg Q6H PO Last administered on 03/10/16at 08:28; Admin Dose 30 MG; Start 03/01/16 at 02:00 Miscellaneous Information 1 ea NOTE XX ; Start 03/01/16 at 02:00 Glucose (Glutose) 15 gm Q15M PRN PO DECREASED GLUCOSE; Start 03/01/16 at 02:00 Glucose (Glutose) 22.5 gm Q15M PRN PO DECREASED GLUCOSE; Start 03/01/16 at 02: 00 Dextrose (D50w Syringe) 25 ml Q15M PRN IV DECREASED GLUCOSE; Start 03/01/16 at 02:00 Dextrose (D50w Syringe) 50 ml Q15M PRN IV DECREASED GLUCOSE; Start 03/01/16 at 02:00 Glucagon (Glucagen) 1 mg Q15M PRN IM DECREASED GLUCOSE; Start 03/01/16 at 02: 00 Glucose (Glutose) 15 gm Q15M PRN BUCCAL DECREASED GLUCOSE; Start 03/01/16 at 02:00 Diagnostic Test (Pha) (Accucheck) 1 ea 02 XX Last administered on 03/10/16at 02 :21; Admin Dose 1 EA; Start 03/02/16 at 02:00 Bisacodyl (Dulcolax Supp) 10 mg DAILY PRN ME CONSTIPATION Last administered on 03/08/16at 23:47; Admin Dose 10 MG; Start 03/03/16 at 11:30 Clotrimazole (Lotrimin Cr) 1 applic BID TOP Last administered on 03/10/16at 08: 45; Admin Dose 1 APPLIC; Start 03/03/16 at 13:30 Insulin Glargine (Lantus) 40 unit QHS SC Last administered on 03/09/16at 22:19 ; Admin Dose 40 UNIT; Start 03/04/16 at 21:00 Methylprednisolone Sodium Succinate (Solu-Medrol) 60 mg DAILY IV Last administered on 03/10/16at 08:43; Admin Dose 60 MG; Start 03/05/16 at 09:00 Docusate Sodium (Colace) 100 mg BID PO Last administered on 03/10/16 08:44; Admin Dose 100 MG; Start 03/05/16 at 10:30 Magnesium Hydroxide 30 ml 30 ml DAILY PRN PO CONSTIPATION Last administered on 03/08/16 12:37; Admin Dose 30 ML; Start 03/05/16 at 10:30 Sodium Chloride (NS) 1,000 ml @ 75 mls/hr [id number] IV Last administered on 22:19; Admin Dose 75 MLS/HR; Start 03/06/16 at 14:30 Lactulose (Enulose) 20 gm Q8 PO Last administered on 03/09/16 06:17; Admin Dose 20 GM; Start 03/07/16 at 17:00 Sodium Chloride (Deep Sea) 1 spray Q4H PRN NASAL NASAL CONGESTION; Start 03/07 at 17:30 Fentanyl (Duragesic 100 Mcg/Hr Patch) 1 patch Q72H TRANSDERM Last administered on 03/08/16 09:41; Admin Dose 1 PATCH; Start 03/08/16 at 09:00 Magnesium Citrate (Citroma) 300 ml DAILY PRN PO CONSTIPATION Last administered on 03/08/16 18:28; Admin Dose 300 ML; Start 03/08/16 at 17:00; Stop at 16:59 Ondansetron HCl 4 mg 4 mg Q4H PRN IV NAUSEA AND/OR VOMITING; Start 03/08/16 at 23:30 Levofloxacin/ Dextrose (Levaquin 250 Mg/ D5W 50 ml (Pmx)) 50 ml @ 50 mls/hr Q48H IVPB ; Start 03/11/16 at 06:00 Pantoprazole (Protonix Iv) 40 mg BID@06,18 IV Last administered on 03/10/16 05:52; Admin Dose 40 MG; Start 03/10/16 at 06:00 TR AMES Mar 10, 2016 09:51
[2016-03-10 10:22] LABS: LYMPHOCYTES # 0.6 10^3/ul (0.8-2.9); MONOCYTE # 1.3 10^3/ul (0.3-0.9)
[2016-03-10] MEDS: SOD CHLORIDE 0.9% 1,000 ML IV SCH (11:56)
[2016-03-10] MEDS: MAGNESIUM CITRATE 300 ML BTL PO SCH (12:30)
--- NOTE | 2016-03-10 14:21 | PN ---
Date/Time of Note Date/Time of Note DATE: 03/10/16 TIME: 13:24 Assessment/Plan VTE Prophylaxis VTE Prophylaxis Intervention: SCD's, other (Eliquis on Hold ) Lines/Catheters IV Catheter Type (from Nrs): Peripheral IV Urinary Cath still in place: No Assessment/Plan Assessment/Plan 85 yo female with: 1. Acute Respiratory failure, improved and now on 3L NC. ? Bronchitis/URI/ PNA with reported history of Asthma and concerns for PJP raised this weekend as patient has been on CellCept chronically Pulmonary, Dr Ornelas following Continue nebulizers, steroids taper, Appreciate ID recs, off bactrim Given renal function and concerns for lower Hb, d/c Eliquis for now 2. Paroxysmal A fib, no CAD per family but hx of Minor CVA ... patient should be now on anticoagulation given findings of A fib, family agreeable and will d/ c Plavix. Patient not on ASA as outpatient per Family so will also d/c Continue Cardizem and Eliquis on hold given current GI issues . 3. JUAN on CKD Renal function with creatinine still up 2.6 for now and BUN still at 125, Hyponatremia better Family agreeable for Tong cath Will clarify IVF vs diuresis with Nephro, for now continue IVF Recheck BMP and check lactate this afternoon. Continue IVF especially in setting of hyperglycemia OFF Bactrim and Losartan Follow up Nephrology recommendations. 4. Diabetes Mellitus: Continue Accu-Cheks and sliding scale. Continue Lantus at higher dose for now as patient with elevated BG. Check A1c 5. Severe Hypertension: continue Clonidine and Norvasc, maximizing Cardizem as tolerated for HR control and d/c HCTZ for now, if needs diuresis, use Lasix or Bumex. OFF Losartan due to JUAN 6. Pemphigoid disease per family, chronic for years and has been on Cellcept. 7. Chronic Pain: on fentanyl patch, i have approached the family to d/c fentanyl patch as probably part of cause of bowel issues but they are reluctant but today agreeable to decrease dose to 75 mcg 8. Severe Constipation: on multiple meds currently + enema and Mag citrate overnight, still no BM this AM, CT abdo/pelvis with no evidence of abdominopelvic mass, lymphadenopathy or focal acute inflammatory pathology. Nonspecific gaseous distension of the colon with fluid stool throughout the right colon. No evidence of pneumatosis or pneumoperitoneum. Appreciate GI recommendations and will re discuss NGT and Go-litely if needed Prophylaxis: Holding Eliquis given? GIB and in ARF, PPI for GI ppx Disposition: Follow up Pulmonary, Nephrology recs today. Subjective 24 Hr Interval Summary Free Text/Dictation Patient awake and moaning but seems actually fully awake and alert when family around and even fighting RN giving her meds Renal function not improving yet, agreeable to have Tong catheter in. Still with constipation despite multiple doses/meds/enema for constipation. Now agreeable to decrease Fentanyl patch dose especially with declined renal function and later on may need to put NGT and Golytely to see if would help 2 sons at bedside updated regarding plan of care Exam/Review of Systems Vital Signs Vitals Vital Signs Date Time Temp Pulse Resp B/P Pulse Ox O2 Delivery O2 Flow Rate FiO2 03/10/16 12:17 124 03/10/16 11:59 98.0 20 105/53 96 03/10/16 09:38 4.0 03/10/16 09:33 Nasal Cannula 03/08/16 21:02 40 Intake and Output 03/09/16 03/09/16 03/10/16 15:00 23:00 07:00 Intake Total 1587 ml Balance 1587 ml Exam Constitutional: alert, frail, obese, oriented Respiratory: diminished breath sounds (bases ), other (upper airway mucus?) Cardiovascular: irregular rhythm (Atrial fib ) Gastrointestinal: distended, soft, tender (epigastric after Mag citrate ) Musculoskeletal: nl extremities to inspection Extremities: normal pulses, other (no edema, clubbing or cyanosis) 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, lethargic (but awake and fully alert ), nl mental status, nl speech Results Result Diagram: 03/10/16 0550 03/10/16 0550 Results 24 hrs Laboratory Tests Test 03/09/16 17:30 03/09/16 22:15 03/10/16 02:21 03/10/16 05:50 Bedside Glucose 220 208 195 Alanine Aminotransferase (ALT/SGPT) 35 Albumin 2.8 L Albumin/Globulin Ratio 1.27 Alkaline Phosphatase 44 Anion Gap 17 H Aspartate Amino Transf (AST/SGOT) 16 Band Neutrophils % 1.0 Blood Morphology Comment Blood Urea Nitrogen 125 H Calcium Level 7.9 L Carbon Dioxide Level 23 Chloride Level 101 Creatinine 2.85 H Differential Comment MANUAL DIFF Direct Bilirubin 0.00 Globulin 2.20 Glucose Level 180 Hematocrit 27.9 L Hemoglobin 9.0 L Indirect Bilirubin 0.0 Lymphocytes # 0.6 L Lymphocytes % 4.0 L Magnesium Level 3.9 H Mean Corpuscular Hemoglobin 25.9 L Mean Corpuscular Hemoglobin Concent 32.4 Mean Corpuscular Volume 80.2 L Mean Platelet Volume 8.3 Monocytes # 1.3 H Monocytes % 9.0 Neutrophils # 12.0 H Neutrophils % 86.0 H Phosphorus Level 6.8 H Platelet Count 289 Potassium Level 5.5 H Red Blood Count 3.48 L Red Cell Distribution Width 15.3 H Sodium Level 135 Total Bilirubin 0.0 L Total Protein 5.0 L White Blood Count 13.9 H Test 03/10/16 08:18 03/10/16 12:24 Bedside Glucose 188 100 Medications Medications Current Medications Brimonidine Tartrate (Alphagan 0.2%) 1 drop Q8 BOTH EYES Last administered on 03/10/16 05:52; Admin Dose 1 DROP; Start 03/01/16 at 06:00 Clonidine (Catapres) 0.2 mg TID PO Last administered on 03/10/16 08:44; Admin Dose 0.2 MG; Start 03/01/16 at 09:00 Latanoprost (Xalatan) 1 drop QHS BOTH EYES Last administered on 03/09/16 21: 08; Admin Dose 1 DROP; Start 03/01/16 at 21:00 Mycophenolate Mofetil (Cellcept) 500 mg BID PO Last administered on 03/10/16 08:45; Admin Dose 500 MG; Start 03/01/16 at 09:00 Gabapentin (Neurontin) 300 mg Q8H PO Last administered on 03/10/16 10:47; Admin Dose 300 MG; Start 03/01/16 at 02:00 Acetaminophen (Tylenol Tab) 650 mg Q4H PRN PO pain/fever Last administered on 03/08/16 12:49; Admin Dose 650 MG; Start 03/01/16 at 01:00 Ondansetron HCl (Zofran Inj) 4 mg Q4H PRN IV nausea Last administered on 02:23; Admin Dose 4 MG; Start 03/01/16 at 01:00 Morphine Sulfate (morphine) 2 mg Q2H PRN IV pain Last administered on at 11:42; Admin Dose 2 MG; Start 03/01/16 at 01:00 Hydralazine HCl (Apresoline) 25 mg Q6H PRN PO sbp>160; Start 03/01/16 at 01:00 Diltiazem HCl (Cardizem) 30 mg Q6H PO Last administered on 03/10/16at 08:28; Admin Dose 30 MG; Start 03/01/16 at 02:00 Miscellaneous Information 1 ea NOTE XX ; Start 03/01/16 at 02:00 Glucose (Glutose) 15 gm Q15M PRN PO DECREASED GLUCOSE; Start 03/01/16 at 02:00 Glucose (Glutose) 22.5 gm Q15M PRN PO DECREASED GLUCOSE; Start 03/01/16 at 02: 00 Dextrose (D50w Syringe) 25 ml Q15M PRN IV DECREASED GLUCOSE; Start 03/01/16 at 02:00 Dextrose (D50w Syringe) 50 ml Q15M PRN IV DECREASED GLUCOSE; Start 03/01/16 at 02:00 Glucagon (Glucagen) 1 mg Q15M PRN IM DECREASED GLUCOSE; Start 03/01/16 at 02: 00 Glucose (Glutose) 15 gm Q15M PRN BUCCAL DECREASED GLUCOSE; Start 03/01/16 at 02:00 Diagnostic Test (Pha) (Accucheck) 1 ea 02 XX Last administered on 03/10/16at 02 :21; Admin Dose 1 EA; Start 03/02/16 at 02:00 Bisacodyl (Dulcolax Supp) 10 mg DAILY PRN [place] CONSTIPATION Last administered on 03/08/16at 23:47; Admin Dose 10 MG; Start 03/03/16 at 11:30 Clotrimazole (Lotrimin Cr) 1 applic BID TOP Last administered on 03/10/16at 08: 45; Admin Dose 1 APPLIC; Start 03/03/16 at 13:30 Insulin Glargine (Lantus) 40 unit QHS SC Last administered on 03/09/16at 22:19 ; Admin Dose 40 UNIT; Start 03/04/16 at 21:00 Methylprednisolone Sodium Succinate (Solu-Medrol) 60 mg DAILY IV Last administered on 03/10/16at 08:43; Admin Dose 60 MG; Start 03/05/16 at 09:00 Docusate Sodium (Colace) 100 mg BID PO Last administered on 03/10/16 08:44; Admin Dose 100 MG; Start 03/05/16 at 10:30 Magnesium Hydroxide 30 ml 30 ml DAILY PRN PO CONSTIPATION Last administered on 03/08/16 12:37; Admin Dose 30 ML; Start 03/05/16 at 10:30 Sodium Chloride (NS) 1,000 ml @ 75 mls/hr [id number] IV Last administered on 11:56; Admin Dose 75 MLS/HR; Start 03/06/16 at 14:30 Lactulose (Enulose) 20 gm Q8 PO Last administered on 03/09/16 06:17; Admin Dose 20 GM; Start 03/07/16 at 17:00 Sodium Chloride (Deep Sea) 1 spray Q4H PRN NASAL NASAL CONGESTION; Start 03/07 at 17:30 Fentanyl (Duragesic 100 Mcg/Hr Patch) 1 patch Q72H TRANSDERM Last administered on 03/08/16at 09:41; Admin Dose 1 PATCH; Start 03/08/16 at 09:00 Ondansetron HCl 4 mg 4 mg Q4H PRN IV NAUSEA AND/OR VOMITING; Start 03/08/16 at 23:30 Levofloxacin/ Dextrose (Levaquin 250 Mg/ D5W 50 ml (Pmx)) 50 ml @ 50 mls/hr Q48H IVPB ; Start 03/11/16 at 06:00 Pantoprazole (Protonix Iv) 40 mg BID@06,18 IV Last administered on 03/10/16at 05:52; Admin Dose 40 MG; Start 03/10/16 at 06:00 Magnesium Citrate (Citroma) 300 ml DAILY PO Last administered on 03/10/16 12: 30; Admin Dose 300 ML; Start 03/10/16 at 10:13 Procedures Procedures PROCEDURE: CT Abdomen and Pelvis without contrast. CLINICAL INDICATION: Abdominal distension. TECHNIQUE: Multiple contiguous axial CT images of the abdomen and pelvis were obtained without the administration of intravenous contrast. Coronal and sagittal reconstructions were also performed. CTDIvol (mGy): 23.18; Total Exam DLP (mGy-cm): 1308.11. COMPARISON: None. FINDINGS: Limited imaging of the lower thorax demonstrates scattered atelectatic changes. The liver and spleen are homogeneous in density. The gallbladder is surgically absent. The pancreas and adrenal glands are unremarkable. The kidneys are symmetric in size. Mild symmetric pelviectasis is observed. There is no hydronephrosis or abnormal perinephric inflammation. There are no nephroureteral stones. The abdominal aorta is normal in caliber. Atherosclerotic calcification is present. There is no periaortic / retroperitoneal lymphadenopathy. Mild fluid-filled distension of the stomach is observed. The small intestines are unremarkable. Diffuse gaseous distension of the colon is present predominately affecting the ascending and transverse colon. There is no intestinal wall thickening. Fluid stool is seen within the right colon. There is no evidence of pneumatosis or pneumoperitoneum. Scattered pockets of trapped air are seen within the periphery of the lumen of the right colon. The appendix is normal. There are no focal inflammatory changes of the mesentery. There is no mesenteric lymphadenopathy. There is no ascites. The bladder is distended and normal in contour. The uterus is absent. The adnexa are unremarkable. There is no free pelvic fluid. There is no pelvic sidewall or inguinal lymphadenopathy. Bony mineralization is decreased. Severe L3 compression fracture with evidence of vertebroplasty is present. Degenerative changes are seen throughout the spine. The abdominal wall is thin. There is a tiny fat containing right periumbilical hernia. IMPRESSION: No evidence of abdominopelvic mass, lymphadenopathy or focal acute inflammatory pathology. Nonspecific gaseous distension of the colon with fluid stool throughout the right colon. No evidence of pneumatosis or pneumoperitoneum. Bony demineralization with severe L3 compression fracture with evidence of vertebroplasty. AISHA TINEO Mar 10, 2016 14:14
[2016-03-10 15:36] LABS: POTASSIUM 5.5 mmol/L (3.5-5.1)
[2016-03-10 15:38] LABS: CREATININE 2.94 mg/dl (0.44-1.00)
[2016-03-10 15:39] LABS: CALCIUM 8.1 mg/dl (8.4-10.2)
--- NOTE | 2016-03-10 16:57 | CONS ---
Date/Time of Note Date/Time of Note DATE: 03/10/16 TIME: 16:55 Assessment/Plan Assessment/Plan Chief Complaint/Hosp Course - Acute Kidney Injury - Chronic Kidney Disease ( DM nephropathy + HTN Nephrosclerosis ) - Anemia - Pulmonary disease / COPD - Pemphigoid Dz ( Immunosuppressed ) - Hypertension - Acidosis PLAN: JUAN secondary to ATN & Decrease renal Perfusion No Proteinuria on the UA ? Acute Interstitial Nephritis + Underlying renal disease due to poorly controlled DM & HTN Monitor renal closely Electrolytes stable START ALBUMIN 5% 500 ml x 1 Give Kayexalate 30 Grms Rectally Monitor Labs Problems: Consultation Date/Type/Reason Admit Date/Time Feb 29, 2016 at 18:54 Initial Consult Date 03/08/16 Type of Consultation: NEPHROLOGY Reason for Consultation Acute Kidney Injury 24 HR Interval Summary Subjective hx not possible: pt non-verbal Constitutional: no complaints Exam/Review of Systems Vital Signs Vitals Vital Signs Date Time Temp Pulse Resp B/P Pulse Ox O2 Delivery O2 Flow Rate FiO2 03/10/16 16:52 112 03/10/16 16:03 98.0 20 134/61 98 03/10/16 14:16 Nasal Cannula 3.0 03/08/16 21:02 40 Intake and Output 03/09/16 03/09/16 03/10/16 15:00 23:00 07:00 Intake Total 1587 ml Balance 1587 ml Exam Constitutional: non-verbal Psych: no complaints Head: normocephalic Eyes: nl conjunctiva Respiratory: crackles/rales Cardiovascular: systolic murmur Gastrointestinal: soft Results Result Diagram: 03/10/16 0550 03/10/16 1450 Results 24 hrs Laboratory Tests Test 03/09/16 17:30 03/09/16 22:15 03/10/16 02:21 03/10/16 05:50 Bedside Glucose 220 208 195 Alanine Aminotransferase (ALT/SGPT) 35 Albumin 2.8 L Albumin/Globulin Ratio 1.27 Alkaline Phosphatase 44 Anion Gap 17 H Aspartate Amino Transf (AST/SGOT) 16 Band Neutrophils % 1.0 Blood Morphology Comment Blood Urea Nitrogen 125 H Calcium Level 7.9 L Carbon Dioxide Level 23 Chloride Level 101 Creatinine 2.85 H Differential Comment MANUAL DIFF Direct Bilirubin 0.00 Globulin 2.20 Glucose Level 180 Hematocrit 27.9 L Hemoglobin 9.0 L Indirect Bilirubin 0.0 Lymphocytes # 0.6 L Lymphocytes % 4.0 L Magnesium Level 3.9 H Mean Corpuscular Hemoglobin 25.9 L Mean Corpuscular Hemoglobin Concent 32.4 Mean Corpuscular Volume 80.2 L Mean Platelet Volume 8.3 Monocytes # 1.3 H Monocytes % 9.0 Neutrophils # 12.0 H Neutrophils % 86.0 H Phosphorus Level 6.8 H Platelet Count 289 Potassium Level 5.5 H Red Blood Count 3.48 L Red Cell Distribution Width 15.3 H Sodium Level 135 Total Bilirubin 0.0 L Total Protein 5.0 L White Blood Count 13.9 H Test 03/10/16 08:18 03/10/16 12:24 03/10/16 14:50 Bedside Glucose 188 100 Anion Gap 15 Blood Urea Nitrogen 123 H Calcium Level 8.1 L Carbon Dioxide Level 24 Chloride Level 102 Creatinine 2.94 H Glucose Level 107 # Lactic Acid Level 0.9 Potassium Level 5.5 H Sodium Level 135 Medications Medications Current Medications Brimonidine Tartrate (Alphagan 0.2%) 1 drop Q8 BOTH EYES Last administered on 03/10/16 13:54; Admin Dose 1 DROP; Start 03/01/16 at 06:00 Clonidine (Catapres) 0.2 mg TID PO Last administered on 03/10/16 08:44; Admin Dose 0.2 MG; Start 03/01/16 at 09:00 Latanoprost (Xalatan) 1 drop QHS BOTH EYES Last administered on 03/09/16 21: 08; Admin Dose 1 DROP; Start 03/01/16 at 21:00 Mycophenolate Mofetil (Cellcept) 500 mg BID PO Last administered on 03/10/16 08:45; Admin Dose 500 MG; Start 03/01/16 at 09:00 Gabapentin (Neurontin) 300 mg Q8H PO Last administered on 03/10/16 10:47; Admin Dose 300 MG; Start 03/01/16 at 02:00 Acetaminophen (Tylenol Tab) 650 mg Q4H PRN PO pain/fever Last administered on 03/08/16 12:49; Admin Dose 650 MG; Start 03/01/16 at 01:00 Ondansetron HCl (Zofran Inj) 4 mg Q4H PRN IV nausea Last administered on 02:23; Admin Dose 4 MG; Start 03/01/16 at 01:00 Morphine Sulfate (morphine) 2 mg Q2H PRN IV pain Last administered on at 11:42; Admin Dose 2 MG; Start 03/01/16 at 01:00 Hydralazine HCl (Apresoline) 25 mg Q6H PRN PO sbp>160; Start 03/01/16 at 01:00 Diltiazem HCl (Cardizem) 30 mg Q6H PO Last administered on 03/10/16at 13:54; Admin Dose 30 MG; Start 03/01/16 at 02:00 Miscellaneous Information 1 ea NOTE XX ; Start 03/01/16 at 02:00 Glucose (Glutose) 15 gm Q15M PRN PO DECREASED GLUCOSE; Start 03/01/16 at 02:00 Glucose (Glutose) 22.5 gm Q15M PRN PO DECREASED GLUCOSE; Start 03/01/16 at 02: 00 Dextrose (D50w Syringe) 25 ml Q15M PRN IV DECREASED GLUCOSE; Start 03/01/16 at 02:00 Dextrose (D50w Syringe) 50 ml Q15M PRN IV DECREASED GLUCOSE; Start 03/01/16 at 02:00 Glucagon (Glucagen) 1 mg Q15M PRN IM DECREASED GLUCOSE; Start 03/01/16 at 02: 00 Glucose (Glutose) 15 gm Q15M PRN BUCCAL DECREASED GLUCOSE; Start 03/01/16 at 02:00 Diagnostic Test (Pha) (Accucheck) 1 ea 02 XX Last administered on 03/10/16at 02 :21; Admin Dose 1 EA; Start 03/02/16 at 02:00 Bisacodyl (Dulcolax Supp) 10 mg DAILY PRN [place] CONSTIPATION Last administered on 03/08/16at 23:47; Admin Dose 10 MG; Start 03/03/16 at 11:30 Clotrimazole (Lotrimin Cr) 1 applic BID TOP Last administered on 03/10/16at 08: 45; Admin Dose 1 APPLIC; Start 03/03/16 at 13:30 Insulin Glargine (Lantus) 40 unit QHS SC Last administered on 03/09/16at 22:19 ; Admin Dose 40 UNIT; Start 03/04/16 at 21:00 Methylprednisolone Sodium Succinate (Solu-Medrol) 60 mg DAILY IV Last administered on 03/10/16 08:43; Admin Dose 60 MG; Start 03/05/16 at 09:00 Docusate Sodium (Colace) 100 mg BID PO Last administered on 03/10/16at 08:44; Admin Dose 100 MG; Start 03/05/16 at 10:30 Magnesium Hydroxide 30 ml 30 ml DAILY PRN PO CONSTIPATION Last administered on 03/08/16 12:37; Admin Dose 30 ML; Start 03/05/16 at 10:30 Sodium Chloride (NS) 1,000 ml @ 75 mls/hr [id number] IV Last administered on 11:56; Admin Dose 75 MLS/HR; Start 03/06/16 at 14:30 Lactulose (Enulose) 20 gm Q8 PO Last administered on 03/10/16at 13:54; Admin Dose 20 GM; Start 03/07/16 at 17:00 Sodium Chloride (Deep Sea) 1 spray Q4H PRN NASAL NASAL CONGESTION; Start 03/07 at 17:30 Ondansetron HCl 4 mg 4 mg Q4H PRN IV NAUSEA AND/OR VOMITING; Start 03/08/16 at 23:30 Levofloxacin/ Dextrose (Levaquin 250 Mg/ D5W 50 ml (Pmx)) 50 ml @ 50 mls/hr Q48H IVPB ; Start 03/11/16 at 06:00 Pantoprazole (Protonix Iv) 40 mg BID@06,18 IV Last administered on 03/10/16 05:52; Admin Dose 40 MG; Start 03/10/16 at 06:00 Magnesium Citrate (Citroma) 300 ml DAILY PO Last administered on 03/10/16at 12: 30; Admin Dose 300 ML; Start 03/10/16 at 10:13 Fentanyl (Duragesic 75 Mcg/Hr Patch) 1 patch Q72H TRANSDERM ; Start 03/11/16 at 09:00 KAMERON EUBANKS MD Mar 10, 2016 16:57
[2016-03-10] MEDS ORDERED: NA POLYST SULFON 15 GM/60 ML BTL PR ONE (17:00)
[2016-03-10] MEDS: ALBUMIN HUMAN 5% 250 ML IV SCH ×2 (18:33→20:22)
[2016-03-10] MEDS: LATANOPROST 0.005% 2.5 ML OPH BOTH EYES SCH (21:04)
[2016-03-10] MEDS: INSULIN GLARGINE [LANtus] 3 ML PEN SC SCH (21:06)
--- NOTE | 2016-03-10 21:45 | CONS ---
Date/Time of Note Date/Time of Note DATE: 03/10/16 TIME: 21:43 Consult Date/Type/Reason Admit Date/Time Feb 29, 2016 at 12:54 Initial Consult Date 03/08/16 Type of Consultation: id Subjective NO ACUTE EVENTS, awake, weak, no fevers, mild congestion, comfortable on nc, family at bedside Objective Vital Signs Date Time Temp Pulse Resp B/P Pulse Ox O2 Delivery O2 Flow Rate FiO2 03/10/16 20:43 129 03/10/16 20:34 24 100 Nasal Cannula 3.0 03/10/16 20:26 98.2 138/62 03/08/16 21:02 40 Intake and Output 03/09/16 03/09/16 03/10/16 15:00 23:00 07:00 Intake Total 1587 ml Balance 1587 ml Results/Medications Result Diagram: 03/10/16 0550 03/10/16 1450 Results 24 hrs Laboratory Tests Test 03/09/16 22:15 03/10/16 02:21 03/10/16 05:50 03/10/16 08:18 Bedside Glucose 208 195 188 Alanine Aminotransferase (ALT/SGPT) 35 Albumin 2.8 L Albumin/Globulin Ratio 1.27 Alkaline Phosphatase 44 Anion Gap 17 H Aspartate Amino Transf (AST/SGOT) 16 Band Neutrophils % 1.0 Blood Morphology Comment Blood Urea Nitrogen 125 H Calcium Level 7.9 L Carbon Dioxide Level 23 Chloride Level 101 Creatinine 2.85 H Differential Comment MANUAL DIFF Direct Bilirubin 0.00 Globulin 2.20 Glucose Level 180 Hematocrit 27.9 L Hemoglobin 9.0 L Indirect Bilirubin 0.0 Lymphocytes # 0.6 L Lymphocytes % 4.0 L Magnesium Level 3.9 H Mean Corpuscular Hemoglobin 25.9 L Mean Corpuscular Hemoglobin Concent 32.4 Mean Corpuscular Volume 80.2 L Mean Platelet Volume 8.3 Monocytes # 1.3 H Monocytes % 9.0 Neutrophils # 12.0 H Neutrophils % 86.0 H Phosphorus Level 6.8 H Platelet Count 289 Potassium Level 5.5 H Red Blood Count 3.48 L Red Cell Distribution Width 15.3 H Sodium Level 135 Total Bilirubin 0.0 L Total Protein 5.0 L White Blood Count 13.9 H Test 03/10/16 12:24 03/10/16 14:50 03/10/16 16:00 03/10/16 17:50 Bedside Glucose 100 153 Anion Gap 15 Blood Urea Nitrogen 123 H Calcium Level 8.1 L Carbon Dioxide Level 24 Chloride Level 102 Creatinine 2.94 H Glucose Level 107 # Lactic Acid Level 0.9 Potassium Level 5.5 H Sodium Level 135 Ferritin 118.0 Test 03/10/16 20:45 Bedside Glucose 169 Medications Current Medications Brimonidine Tartrate (Alphagan 0.2%) 1 drop Q8 BOTH EYES Last administered on 03/10/16 21:03; Admin Dose 1 DROP; Start 03/01/16 at 06:00 Clonidine (Catapres) 0.2 mg TID PO Last administered on 03/10/16 20:58; Admin Dose 0.2 MG; Start 03/01/16 at 09:00 Latanoprost (Xalatan) 1 drop QHS BOTH EYES Last administered on 03/10/16 21: 04; Admin Dose 1 DROP; Start 03/01/16 at 21:00 Mycophenolate Mofetil (Cellcept) 500 mg BID PO Last administered on 03/10/16 20:57; Admin Dose 500 MG; Start 03/01/16 at 09:00 Gabapentin (Neurontin) 300 mg Q8H PO Last administered on 03/10/16 18:29; Admin Dose 300 MG; Start 03/01/16 at 02:00 Acetaminophen (Tylenol Tab) 650 mg Q4H PRN PO pain/fever Last administered on 03/08/16 12:49; Admin Dose 650 MG; Start 03/01/16 at 01:00 Ondansetron HCl (Zofran Inj) 4 mg Q4H PRN IV nausea Last administered on 02:23; Admin Dose 4 MG; Start 03/01/16 at 01:00 Morphine Sulfate (morphine) 2 mg Q2H PRN IV pain Last administered on 11:42; Admin Dose 2 MG; Start 03/01/16 at 01:00 Hydralazine HCl (Apresoline) 25 mg Q6H PRN PO sbp>160; Start 03/01/16 at 01:00 Diltiazem HCl (Cardizem) 30 mg Q6H PO Last administered on 03/10/16 20:58; Admin Dose 30 MG; Start 03/01/16 at 02:00 Miscellaneous Information 1 ea NOTE XX ; Start 03/01/16 at 02:00 Glucose (Glutose) 15 gm Q15M PRN PO DECREASED GLUCOSE; Start 03/01/16 at 02:00 Glucose (Glutose) 22.5 gm Q15M PRN PO DECREASED GLUCOSE; Start 03/01/16 at 02: 00 Dextrose (D50w Syringe) 25 ml Q15M PRN IV DECREASED GLUCOSE; Start 03/01/16 at 02:00 Dextrose (D50w Syringe) 50 ml Q15M PRN IV DECREASED GLUCOSE; Start 03/01/16 at 02:00 Glucagon (Glucagen) 1 mg Q15M PRN IM DECREASED GLUCOSE; Start 03/01/16 at 02: 00 Glucose (Glutose) 15 gm Q15M PRN BUCCAL DECREASED GLUCOSE; Start 03/01/16 at 02:00 Diagnostic Test (Pha) (Accucheck) 1 ea 02 XX Last administered on 03/10/16at 02 :21; Admin Dose 1 EA; Start 03/02/16 at 02:00 Bisacodyl (Dulcolax Supp) 10 mg DAILY PRN [place] CONSTIPATION Last administered on 03/08/16 23:47; Admin Dose 10 MG; Start 03/03/16 at 11:30 Clotrimazole (Lotrimin Cr) 1 applic BID TOP Last administered on 03/10/16at 21: 03; Admin Dose 1 APPLIC; Start 03/03/16 at 13:30 Insulin Glargine (Lantus) 40 unit QHS SC Last administered on 03/10/16 21:06 ; Admin Dose 40 UNIT; Start 03/04/16 at 21:00 Methylprednisolone Sodium Succinate (Solu-Medrol) 60 mg DAILY IV Last administered on 03/10/16 08:43; Admin Dose 60 MG; Start 03/05/16 at 09:00 Docusate Sodium (Colace) 100 mg BID PO Last administered on 03/10/16 20:57; Admin Dose 100 MG; Start 03/05/16 at 10:30 Magnesium Hydroxide 30 ml 30 ml DAILY PRN PO CONSTIPATION Last administered on 03/08/16 12:37; Admin Dose 30 ML; Start 03/05/16 at 10:30 Sodium Chloride (NS) 1,000 ml @ 75 mls/hr [id number] IV Last administered on 12/ 24/16at 11:56; Admin Dose 75 MLS/HR; Start 03/06/16 at 14:30 Lactulose (Enulose) 20 gm Q8 PO Last administered on 03/10/16at 21:07; Admin Dose 20 GM; Start 03/07/16 at 17:00 Sodium Chloride (Deep Sea) 1 spray Q4H PRN NASAL NASAL CONGESTION; Start 03/07 at 17:30 Ondansetron HCl 4 mg 4 mg Q4H PRN IV NAUSEA AND/OR VOMITING; Start 03/08/16 at 23:30 Levofloxacin/ Dextrose (Levaquin 250 Mg/ D5W 50 ml (Pmx)) 50 ml @ 50 mls/hr Q48H IVPB ; Start 03/11/16 at 06:00 Pantoprazole (Protonix Iv) 40 mg BID@06,18 IV Last administered on 03/10/16at 18:28; Admin Dose 40 MG; Start 03/10/16 at 06:00 Magnesium Citrate (Citroma) 300 ml DAILY PO Last administered on 03/10/16at 12: 30; Admin Dose 300 ML; Start 03/10/16 at 10:13 Fentanyl (Duragesic 75 Mcg/Hr Patch) 1 patch Q72H TRANSDERM ; Start 03/11/16 at 09:00 Assessment/Plan Chief Complaint/Hosp Course ANTIMICROBIALS: The patient remains on Levaquin. She is also on IV steroids. PHYSICAL EXAMINATION GENERAL: This is a morbidly obese, elderly woman who is lying comfortably in bed. HEENT: Head atraumatic, normocephalic. Sclerae are anicteric. Buccal mucosa dry. NECK: Supple. CHEST: Rise symmetrical. Breath sounds with scattered crackles to mostly upper rodriguez. ABDOMEN: Distended, semi-soft, with hyperactive bowel tones left upper quadrant and normal bowel tones, slightly diminished throughout elsewhere. EXTREMITIES: With trace edema. ASSESSMENT 1. Systemic inflammatory response syndrome with leukocytosis, likely steroid induced. 2. Acute hypoxemic respiratory failure, questionable aspiration pneumonia. 3. Chronic obstructive pulmonary disease. 4. Ssdhw-uh-ptnyuxp kidney disease. 5. Diabetes. 6. 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 7. Obesity. PLAN: The patient remains unchanged. Continue abx/steroids, f/u renal/GI rec-s DW family at bedside Problems: LEÓN PAK NP Mar 10, 2016 21:45
[2016-03-11] VITALS (11 sets, daily range): BP systolic 120–135; BP diastolic 49–78; PULSE 96–126; RESP 16–20
[2016-03-11] MEDS: SOD CHLORIDE 0.9% 1,000 ML IV SCH ×2 (01:10→12:15)
[2016-03-11] MEDS: ALBUTEROL/IPRATROPIUM (NEB) 3 ML AMP HHN SCH ×4 (01:32→20:11)
[2016-03-11] MEDS: ACCUCHECK AT 2AM (Patients on SS coverage) XX SCH (02:00)
[2016-03-11] MEDS: GABAPENTIN 300 MG CAP PO SCH ×3 (02:07→18:00)
[2016-03-11] MEDS: DILTIAZEM 30 MG TAB PO SCH ×4 (02:14→20:00)
[2016-03-11] MEDS: PANTOPRAZOLE 40 MG INJ IV SCH ×2 (05:33→21:14)
[2016-03-11] MEDS: LACTULOSE 30ML CUP PO SCH ×3 (05:33→21:14)
[2016-03-11] MEDS: BRIMONIDINE 0.2% 5 ML BTL BOTH EYES SCH ×3 (05:34→21:15)
[2016-03-11] MEDS: LEVOFLOXACIN 250MG/D5W (PMX) 50 ML IVPB SCH (05:37)
[2016-03-11 07:54] LABS: HEMATOCRIT 24.4 % (37.0-47.0); MEAN CORPUSCULAR HEMOGLOBIN 26.4 pg (29.0-33.0); MEAN CORPUSCULAR HGB CONC 32.7 g/dl (32.0-37.0); MEAN CORPUSCULAR VOLUME 80.6 fl (82.0-101.0); MEAN PLATELET VOLUME 7.6 fl (7.4-10.4); PLATELET COUNT 270 10^3/UL (140-440); RED BLOOD COUNT 3.02 10^6/ul (4.20-5.40); RED CELL DISTRIBUTION WIDTH 15.8 % (11.5-14.5); UNCORRECTED WBC 13.7 10^3/ul (4.8-10.8); WHITE BLOOD COUNT 13.7 10^3/ul (4.8-10.8)
[2016-03-11 08:02] LABS: CONDITION 1; LH ANALYZER COMMENTS 1
[2016-03-11 08:03] LABS: ALBUMIN 3.2 g/dl (3.3-4.9)
[2016-03-11 08:04] LABS: POTASSIUM 5.5 mmol/L (3.5-5.1)
[2016-03-11 08:06] LABS: BILIRUBIN,INDIRECT 0.1 mg/dl (0-1.1); BILIRUBIN,TOTAL 0.1 mg/dl (0.2-1.3); CREATININE 2.92 mg/dl (0.44-1.00)
[2016-03-11 08:07] LABS: ALBUMIN/GLOBULIN RATIO 1.52; CALCIUM 8.2 mg/dl (8.4-10.2); TOTAL PROTEIN 5.3 g/dl (6.1-8.1)
[2016-03-11 08:15] LABS: IRON 79 ug/dl (35-150); MAGNESIUM 4.4 mg/dl (1.7-2.5); PHOSPHORUS 6.6 mg/dl (2.5-4.9)
[2016-03-11 08:24] LABS: TOTAL IRON BINDING CAPACITY 208 ug/dl (241-421)
[2016-03-11] MEDS: MAGNESIUM CITRATE 300 ML BTL PO SCH (09:00)
[2016-03-11] MEDS: FENTAnyl PATCH 75 MCG/HR TRANSDERM SCH (09:00)
[2016-03-11] MEDS: INSULIN ASPART [NOVOLOG] 3 ML PEN SC SCH ×7 (09:33→21:00)
[2016-03-11 10:17] LABS: ANISOCYTOSIS 1+; LYMPHOCYTES # 0.7 10^3/ul (0.8-2.9)
[2016-03-11 10:18] LABS: HYPOCHROMASIA 2+; MICROCYTOSIS 1+; PLATELET ESTIMATE PLT APPEAR ADEQUATE; POIKILOCYTOSIS 2+
[2016-03-11] MEDS: METHYLPREDNISOLONE 125 MG INJ IV SCH (11:03)
[2016-03-11] MEDS: DOCUSATE SODIUM 100 MG CAP PO SCH ×2 (11:04→21:14)
[2016-03-11] MEDS: CLOTRIMAZOLE 1% 30 GM CR TOP SCH ×2 (11:05→21:16)
[2016-03-11] MEDS: MYCOPHENOLATE 250 MG CAP PO SCH ×2 (11:06→21:52)
--- NOTE | 2016-03-11 11:51 | CONS ---
Date/Time of Note Date/Time of Note DATE: 03/11/16 TIME: 11:45 Assessment/Plan Assessment/Plan Additional Assessment/Plan - Constipation, patient noncompliant will bowel prep, recommend NG tube insertion - Chronic Kidney Disease ( DM nephropathy + HTN Nephrosclerosis ) - Anemia - Pulmonary disease / COPD - Pemphigoid Dz ( Immunosuppressed ) - Hypertension - Acidosis Recommendation: -Recommend NG tube insertion, and administration of mag citrate and GoLYTELY, may need need colonoscopy with biopsies to evaluate. - motility problem also suggested by her poorly controlled DM - continue other supportive care - Further recommendations depend on clinical course Patient seen in collaboration with Dr. Zuniga Consultation Date/Type/Reason Admit Date/Time Feb 29, 2016 at 18:54 Initial Consult Date 03/08/16 Type of Consultation: id 24 HR Interval Summary Free Text/Dictation Patient continues to refuse mag citrate Constipation likely secondary to opiates and immobility Discussed with Dr. Spring and agree to NG tube insertion and administration of high-dose bowel prep Exam/Review of Systems Vital Signs Vitals Vital Signs Date Time Temp Pulse Resp B/P Pulse Ox O2 Delivery O2 Flow Rate FiO2 03/11/16 09:17 100 3.0 03/11/16 09:17 101 20 Nasal Cannula 03/11/16 07:29 98.5 120/49 03/08/16 21:02 40 Intake and Output 03/10/16 03/10/16 03/11/16 15:00 23:00 07:00 Intake Total 1000 ml 1000 ml 500 ml Output Total 1100 ml Balance 1000 ml 1000 ml -600 ml Exam Constitutional: Obese Head: atraumatic, normocephalic Eyes: EOMI, nl conjunctiva, nl lids, nl sclera ENMT: mucosa pink and moist, nl external ears & nose, nl lips & teeth, nl nasal mucosa & septum Neck: non-tender, supple Respiratory: labored breathing, normal air movement, wheezing Cardiovascular: nl pulses, regular rate and rhythm Gastrointestinal: bowel sounds, non-tender, soft Results Result Diagram: 03/11/16 0721 03/11/16 0721 Results 24 hrs Laboratory Tests Test 03/10/16 12:24 03/10/16 14:50 03/10/16 16:00 03/10/16 17:50 Bedside Glucose 100 153 Anion Gap 15 Blood Urea Nitrogen 123 H Calcium Level 8.1 L Carbon Dioxide Level 24 Chloride Level 102 Creatinine 2.94 H Glucose Level 107 # Lactic Acid Level 0.9 Potassium Level 5.5 H Sodium Level 135 Ferritin 118.0 Test 03/10/16 20:45 03/11/16 07:21 03/11/16 09:00 Bedside Glucose 169 223 H Alanine Aminotransferase (ALT/SGPT) 34 Albumin 3.2 L Albumin/Globulin Ratio 1.52 Alkaline Phosphatase 42 Anion Gap 18 H Anisocytosis 1+ Aspartate Amino Transf (AST/SGOT) 11 L Blood Morphology Comment Blood Urea Nitrogen 119 H Calcium Level 8.2 L Carbon Dioxide Level 23 Chloride Level 104 Creatinine 2.92 H Direct Bilirubin 0.00 Ferritin 111.0 Globulin 2.10 Glucose Level 177 Hematocrit 24.4 L Hemoglobin 8.0 L Hypochromasia 2+ Indirect Bilirubin 0.1 Iron Level 79 Lymphocytes # 0.7 L Lymphocytes % 5.0 L Magnesium Level 4.4 H Mean Corpuscular Hemoglobin 26.4 L Mean Corpuscular Hemoglobin Concent 32.7 Mean Corpuscular Volume 80.6 L Mean Platelet Volume 7.6 Microcytosis 1+ Neutrophils # 13.0 H Neutrophils % 95.0 H Nucleated Red Blood Cells # Nucleated Red Blood Cells % 0.0 Percent Iron Saturation 38 Phosphorus Level 6.6 H Platelet Count 270 Platelet Estimate PLT APPEAR ADEQUATE Potassium Level 5.5 H Red Blood Count 3.02 L Red Cell Distribution Width 15.8 H Sodium Level 139 Total Bilirubin 0.1 L Total Iron Binding Capacity 208 L Total Protein 5.3 L White Blood Count 13.7 H Medications Medications Current Medications Brimonidine Tartrate (Alphagan 0.2%) 1 drop Q8 BOTH EYES Last administered on 03/11/16at 05:34; Admin Dose 1 DROP; Start 03/01/16 at 06:00 Clonidine (Catapres) 0.2 mg TID PO Last administered on 03/10/16at 20:58; Admin Dose 0.2 MG; Start 03/01/16 at 09:00 Latanoprost (Xalatan) 1 drop QHS BOTH EYES Last administered on 03/10/16at 21: 04; Admin Dose 1 DROP; Start 03/01/16 at 21:00 Mycophenolate Mofetil (Cellcept) 500 mg BID PO Last administered on 03/11/16at 11:06; Admin Dose 500 MG; Start 03/01/16 at 09:00 Gabapentin (Neurontin) 300 mg Q8H PO Last administered on 03/11/16at 10:58; Admin Dose 300 MG; Start 03/01/16 at 02:00 Acetaminophen (Tylenol Tab) 650 mg Q4H PRN PO pain/fever Last administered on 03/08/16 12:49; Admin Dose 650 MG; Start 03/01/16 at 01:00 Ondansetron HCl (Zofran Inj) 4 mg Q4H PRN IV nausea Last administered on at 02:23; Admin Dose 4 MG; Start 03/01/16 at 01:00 Morphine Sulfate (morphine) 2 mg Q2H PRN IV pain Last administered on at 11:42; Admin Dose 2 MG; Start 03/01/16 at 01:00 Hydralazine HCl (Apresoline) 25 mg Q6H PRN PO sbp>160; Start 03/01/16 at 01:00 Diltiazem HCl (Cardizem) 30 mg Q6H PO Last administered on 03/11/16at 11:04; Admin Dose 30 MG; Start 03/01/16 at 02:00 Miscellaneous Information 1 ea NOTE XX ; Start 03/01/16 at 02:00 Glucose (Glutose) 15 gm Q15M PRN PO DECREASED GLUCOSE; Start 03/01/16 at 02:00 Glucose (Glutose) 22.5 gm Q15M PRN PO DECREASED GLUCOSE; Start 03/01/16 at 02: 00 Dextrose (D50w Syringe) 25 ml Q15M PRN IV DECREASED GLUCOSE; Start 03/01/16 at 02:00 Dextrose (D50w Syringe) 50 ml Q15M PRN IV DECREASED GLUCOSE; Start 03/01/16 at 02:00 Glucagon (Glucagen) 1 mg Q15M PRN IM DECREASED GLUCOSE; Start 03/01/16 at 02: 00 Glucose (Glutose) 15 gm Q15M PRN BUCCAL DECREASED GLUCOSE; Start 03/01/16 at 02:00 Diagnostic Test (Pha) (Accucheck) 1 ea 02 XX Last administered on 03/10/16at 02 :21; Admin Dose 1 EA; Start 03/02/16 at 02:00 Bisacodyl (Dulcolax Supp) 10 mg DAILY PRN [place] CONSTIPATION Last administered on 03/08/16 23:47; Admin Dose 10 MG; Start 03/03/16 at 11:30 Clotrimazole (Lotrimin Cr) 1 applic BID TOP Last administered on 03/11/16 11: 05; Admin Dose 1 APPLIC; Start 03/03/16 at 13:30 Insulin Glargine (Lantus) 40 unit QHS SC Last administered on 03/10/16 21:06 ; Admin Dose 40 UNIT; Start 03/04/16 at 21:00 Methylprednisolone Sodium Succinate (Solu-Medrol) 60 mg DAILY IV Last administered on 03/11/16 11:03; Admin Dose 60 MG; Start 03/05/16 at 09:00 Docusate Sodium (Colace) 100 mg BID PO Last administered on 03/11/16 11:04; Admin Dose 100 MG; Start 03/05/16 at 10:30 Magnesium Hydroxide 30 ml 30 ml DAILY PRN PO CONSTIPATION Last administered on 03/08/16 12:37; Admin Dose 30 ML; Start 03/05/16 at 10:30 Sodium Chloride (NS) 1,000 ml @ 75 mls/hr [id number] IV Last administered on 11:56; Admin Dose 75 MLS/HR; Start 03/06/16 at 14:30 Lactulose (Enulose) 20 gm Q8 PO Last administered on 03/11/16 05:33; Admin Dose 20 GM; Start 03/07/16 at 17:00 Sodium Chloride (Deep Sea) 1 spray Q4H PRN NASAL NASAL CONGESTION; Start 03/07 at 17:30 Ondansetron HCl 4 mg 4 mg Q4H PRN IV NAUSEA AND/OR VOMITING; Start 03/08/16 at 23:30 Levofloxacin/ Dextrose (Levaquin 250 Mg/ D5W 50 ml (Pmx)) 50 ml @ 50 mls/hr Q48H IVPB Last administered on 03/11/16 05:37; Admin Dose 50 MLS/HR; Start 03/11/16 at 06:00 Pantoprazole (Protonix Iv) 40 mg BID@06,18 IV Last administered on 03/11/16 05:33; Admin Dose 40 MG; Start 03/10/16 at 06:00 Magnesium Citrate (Citroma) 300 ml DAILY PO Last administered on 03/10/16at 12: 30; Admin Dose 300 ML; Start 03/10/16 at 10:13 Fentanyl (Duragesic 75 Mcg/Hr Patch) 1 patch Q72H TRANSDERM Last administered on 03/11/16at 09:00; Admin Dose 1 PATCH; Start 03/11/16 at 09:00 TR AMES Mar 11, 2016 11:51
[2016-03-11 12:44] LABS: HEMATOCRIT 25.7 % (37.0-47.0); HEMOGLOBIN 8.4 g/dl (12.0-16.0)
[2016-03-11] MEDS ORDERED: PEG/ELECTROLYTES 4L BTL PO ONE (13:30)
--- NOTE | 2016-03-11 13:53 | PN ---
Date/Time of Note Date/Time of Note DATE: 03/11/16 TIME: 13:35 Assessment/Plan VTE Prophylaxis VTE Prophylaxis Intervention: SCD's (ordered ) Lines/Catheters IV Catheter Type (from Nrsg): Peripheral IV Urinary Cath still in place: Yes Reason Cath still needed: other (indicate) (monitor UOP ) Assessment/Plan Assessment/Plan 85 yo female with: 1. Acute Respiratory failure, improved and now on 3L NC. ? Bronchitis/URI/ PNA with reported history of Asthma and concerns for PJP raised this weekend as patient has been on CellCept chronically Pulmonary, Dr Ornelas following Continue nebulizers, steroids taper down to 40 today, Appreciate ID recs, off bactrim Given renal function and concerns for lower Hb, d/c Eliquis for now 2. Paroxysmal A fib, no CAD per family but hx of Minor CVA ... patient should be now on anticoagulation given findings of A fib, family agreeable and will d/ c Plavix. Patient not on ASA as outpatient per Family so will also d/c Continue Cardizem and Eliquis on hold given current GI and renal issues . 3. JUAN on CKD Renal function with creatinine still around 2.9 for now and BUN still at 119, Hyponatremia resolved. S/p Tong cath with good UOP Appreciate Nephro assistance, s/p Albumin and for now continue IVF Recheck BMP and h/h this evening. Continue IVF especially in setting of hyperglycemia OFF Bactrim and Losartan Follow up Nephrology recommendations. 4. Diabetes Mellitus: Continue Accu-Cheks and sliding scale. Continue Lantus at higher dose for now as patient with elevated BG. Titrating steroids down 5. Severe Hypertension: continue Clonidine and Norvasc, maximizing Cardizem as tolerated for HR control and off all diuretics. OFF Losartan due to JUAN 6. Pemphigoid disease per family, chronic for years and has been on Cellcept. 7. Chronic Pain: on fentanyl patch, I have approached the family to d/c fentanyl patch as probably part of cause of bowel issues but they are reluctant but today agreeable to decrease dose to 75 mcg 8. Severe Constipation: on multiple meds currently + enema and Mag citrate overnight, still no BM this AM, CT abdo/pelvis with no evidence of abdominopelvic mass, lymphadenopathy or focal acute inflammatory pathology. Nonspecific gaseous distension of the colon with fluid stool throughout the right colon. No evidence of pneumatosis or pneumoperitoneum. Appreciate GI recommendations and NGT and Golytely today for Bowel management and also in case needs a colonoscopy this week. Prophylaxis: Holding Eliquis given A fib, PPI for GI ppx Disposition: Follow up Pulmonary, GI and Nephrology recs today. Subjective 24 Hr Interval Summary Free Text/Dictation Patient remains stable but was refusing Mag citrate overnight complaining of epigastric burning, no coffee ground emesis but no BM either, will attempt Golytely and may need NGT placed. On PPI and titrating Solumedrol down Per Family seems better today then yesterday No complaints form patient today even during exam All questions answered and addressed with family, plan of care discussed Exam/Review of Systems Vital Signs Vitals Vital Signs Date Time Temp Pulse Resp B/P Pulse Ox O2 Delivery O2 Flow Rate FiO2 03/11/16 12:21 126 03/11/16 12:18 97.6 18 134/78 100 03/11/16 09:17 3.0 03/11/16 09:17 Nasal Cannula 03/08/16 21:02 40 Intake and Output 03/10/16 03/10/16 03/11/16 15:00 23:00 07:00 Intake Total 1000 ml 1000 ml 500 ml Output Total 1100 ml Balance 1000 ml 1000 ml -600 ml Exam Constitutional: alert, frail, obese, oriented Respiratory: clear to auscultation, diminished breath sounds (bases ) Cardiovascular: irregular rhythm (A fib ), nl pulses Gastrointestinal: non-tender, other (less distension ), soft Extremities: normal pulses, other (mild anasarca ) Neurological: PROCESS CONSULTANT II-XII intact, lethargic, nl mental status, nl speech Results Result Diagram: 03/11/16 1220 03/11/16 0721 Results 24 hrs Laboratory Tests Test 03/10/16 14:50 03/10/16 16:00 03/10/16 17:50 03/10/16 20:45 Anion Gap 15 Blood Urea Nitrogen 123 H Calcium Level 8.1 L Carbon Dioxide Level 24 Chloride Level 102 Creatinine 2.94 H Glucose Level 107 # Lactic Acid Level 0.9 Potassium Level 5.5 H Sodium Level 135 Ferritin 118.0 Bedside Glucose 153 169 Test 03/11/16 07:21 03/11/16 09:00 03/11/16 12:20 03/11/16 13:04 Alanine Aminotransferase (ALT/SGPT) 34 Albumin 3.2 L Albumin/Globulin Ratio 1.52 Alkaline Phosphatase 42 Anion Gap 18 H Anisocytosis 1+ Aspartate Amino Transf (AST/SGOT) 11 L Blood Morphology Comment Blood Urea Nitrogen 119 H Calcium Level 8.2 L Carbon Dioxide Level 23 Chloride Level 104 Creatinine 2.92 H Direct Bilirubin 0.00 Ferritin 111.0 Globulin 2.10 Glucose Level 177 Hematocrit 24.4 L 25.7 L Hemoglobin 8.0 L 8.4 L Hypochromasia 2+ Indirect Bilirubin 0.1 Iron Level 79 Lymphocytes # 0.7 L Lymphocytes % 5.0 L Magnesium Level 4.4 H Mean Corpuscular Hemoglobin 26.4 L Mean Corpuscular Hemoglobin Concent 32.7 Mean Corpuscular Volume 80.6 L Mean Platelet Volume 7.6 Microcytosis 1+ Neutrophils # 13.0 H Neutrophils % 95.0 H Nucleated Red Blood Cells # Nucleated Red Blood Cells % 0.0 Percent Iron Saturation 38 Phosphorus Level 6.6 H Platelet Count 270 Platelet Estimate PLT APPEAR ADEQUATE Potassium Level 5.5 H Red Blood Count 3.02 L Red Cell Distribution Width 15.8 H Sodium Level 139 Total Bilirubin 0.1 L Total Iron Binding Capacity 208 L Total Protein 5.3 L White Blood Count 13.7 H Bedside Glucose 223 H 174 Medications Medications Current Medications Brimonidine Tartrate (Alphagan 0.2%) 1 drop Q8 BOTH EYES Last administered on 03/11/16 05:34; Admin Dose 1 DROP; Start 03/01/16 at 06:00 Clonidine (Catapres) 0.2 mg TID PO Last administered on 03/10/16 20:58; Admin Dose 0.2 MG; Start 03/01/16 at 09:00 Latanoprost (Xalatan) 1 drop QHS BOTH EYES Last administered on 03/10/16 21: 04; Admin Dose 1 DROP; Start 03/01/16 at 21:00 Mycophenolate Mofetil (Cellcept) 500 mg BID PO Last administered on 03/11/16 11:06; Admin Dose 500 MG; Start 03/01/16 at 09:00 Gabapentin (Neurontin) 300 mg Q8H PO Last administered on 03/11/16 10:58; Admin Dose 300 MG; Start 03/01/16 at 02:00 Acetaminophen (Tylenol Tab) 650 mg Q4H PRN PO pain/fever Last administered on 03/08/16at 12:49; Admin Dose 650 MG; Start 03/01/16 at 01:00 Ondansetron HCl (Zofran Inj) 4 mg Q4H PRN IV nausea Last administered on at 02:23; Admin Dose 4 MG; Start 03/01/16 at 01:00 Morphine Sulfate (morphine) 2 mg Q2H PRN IV pain Last administered on at 11:42; Admin Dose 2 MG; Start 03/01/16 at 01:00 Hydralazine HCl (Apresoline) 25 mg Q6H PRN PO sbp>160; Start 03/01/16 at 01:00 Diltiazem HCl (Cardizem) 30 mg Q6H PO Last administered on 03/11/16at 11:04; Admin Dose 30 MG; Start 03/01/16 at 02:00 Miscellaneous Information 1 ea NOTE XX ; Start 03/01/16 at 02:00 Glucose (Glutose) 15 gm Q15M PRN PO DECREASED GLUCOSE; Start 03/01/16 at 02:00 Glucose (Glutose) 22.5 gm Q15M PRN PO DECREASED GLUCOSE; Start 03/01/16 at 02: 00 Dextrose (D50w Syringe) 25 ml Q15M PRN IV DECREASED GLUCOSE; Start 03/01/16 at 02:00 Dextrose (D50w Syringe) 50 ml Q15M PRN IV DECREASED GLUCOSE; Start 03/01/16 at 02:00 Glucagon (Glucagen) 1 mg Q15M PRN IM DECREASED GLUCOSE; Start 03/01/16 at 02: 00 Glucose (Glutose) 15 gm Q15M PRN BUCCAL DECREASED GLUCOSE; Start 03/01/16 at 02:00 Diagnostic Test (Pha) (Accucheck) 1 ea 02 XX Last administered on 03/10/16at 02 :21; Admin Dose 1 EA; Start 03/02/16 at 02:00 Bisacodyl (Dulcolax Supp) 10 mg DAILY PRN [place] CONSTIPATION Last administered on 03/08/16at 23:47; Admin Dose 10 MG; Start 03/03/16 at 11:30 Clotrimazole (Lotrimin Cr) 1 applic BID TOP Last administered on 03/11/16 11: 05; Admin Dose 1 APPLIC; Start 03/03/16 at 13:30 Insulin Glargine (Lantus) 40 unit QHS SC Last administered on 03/10/16 21:06 ; Admin Dose 40 UNIT; Start 03/04/16 at 21:00 Methylprednisolone Sodium Succinate (Solu-Medrol) 60 mg DAILY IV Last administered on 03/11/16 11:03; Admin Dose 60 MG; Start 03/05/16 at 09:00 Docusate Sodium (Colace) 100 mg BID PO Last administered on 03/11/16 11:04; Admin Dose 100 MG; Start 03/05/16 at 10:30 Magnesium Hydroxide 30 ml 30 ml DAILY PRN PO CONSTIPATION Last administered on 03/08/16 12:37; Admin Dose 30 ML; Start 03/05/16 at 10:30 Sodium Chloride (NS) 1,000 ml @ 75 mls/hr [id number] IV Last administered on 12:15; Admin Dose 75 MLS/HR; Start 03/06/16 at 14:30 Lactulose (Enulose) 20 gm Q8 PO Last administered on 03/11/16 05:33; Admin Dose 20 GM; Start 03/07/16 at 17:00 Sodium Chloride (Deep Sea) 1 spray Q4H PRN NASAL NASAL CONGESTION; Start 03/07 at 17:30 Ondansetron HCl 4 mg 4 mg Q4H PRN IV NAUSEA AND/OR VOMITING; Start 03/08/16 at 23:30 Levofloxacin/ Dextrose (Levaquin 250 Mg/ D5W 50 ml (Pmx)) 50 ml @ 50 mls/hr Q48H IVPB Last administered on 03/11/16 05:37; Admin Dose 50 MLS/HR; Start 03/11/16 at 06:00 Pantoprazole (Protonix Iv) 40 mg BID@06,18 IV Last administered on 03/11/16 05:33; Admin Dose 40 MG; Start 03/10/16 at 06:00 Magnesium Citrate (Citroma) 300 ml DAILY PO Last administered on 03/10/16 12: 30; Admin Dose 300 ML; Start 03/10/16 at 10:13 Fentanyl (Duragesic 75 Mcg/Hr Patch) 1 patch Q72H TRANSDERM Last administered on 03/11/16at 09:00; Admin Dose 1 PATCH; Start 03/11/16 at 09:00 AISHA TINEO Mar 11, 2016 13:46
--- NOTE | 2016-03-11 15:02 | CONS ---
Date/Time of Note Date/Time of Note DATE: 03/11/16 TIME: 15:00 Consult Date/Type/Reason Admit Date/Time Feb 29, 2016 at 18:54 Initial Consult Date 03/08/16 Type of Consultation: id Subjective no events, lying comfortably in bed, no fevers, nad Objective Vital Signs Date Time Temp Pulse Resp B/P Pulse Ox O2 Delivery O2 Flow Rate FiO2 03/11/16 13:48 110 20 100 Nasal Cannula 3.0 03/11/16 12:18 97.6 134/78 03/08/16 21:02 40 Intake and Output 03/10/16 03/10/16 03/11/16 15:00 23:00 07:00 Intake Total 1000 ml 1000 ml 500 ml Output Total 1100 ml Balance 1000 ml 1000 ml -600 ml Results/Medications Result Diagram: 03/11/16 1220 03/11/16 0721 Results 24 hrs Laboratory Tests Test 03/10/16 16:00 03/10/16 17:50 03/10/16 20:45 03/11/16 07:21 Ferritin 118.0 111.0 Bedside Glucose 153 169 Alanine Aminotransferase (ALT/SGPT) 34 Albumin 3.2 L Albumin/Globulin Ratio 1.52 Alkaline Phosphatase 42 Anion Gap 18 H Anisocytosis 1+ Aspartate Amino Transf (AST/SGOT) 11 L Blood Morphology Comment Blood Urea Nitrogen 119 H Calcium Level 8.2 L Carbon Dioxide Level 23 Chloride Level 104 Creatinine 2.92 H Direct Bilirubin 0.00 Globulin 2.10 Glucose Level 177 Hematocrit 24.4 L Hemoglobin 8.0 L Hypochromasia 2+ Indirect Bilirubin 0.1 Iron Level 79 Lymphocytes # 0.7 L Lymphocytes % 5.0 L Magnesium Level 4.4 H Mean Corpuscular Hemoglobin 26.4 L Mean Corpuscular Hemoglobin Concent 32.7 Mean Corpuscular Volume 80.6 L Mean Platelet Volume 7.6 Microcytosis 1+ Neutrophils # 13.0 H Neutrophils % 95.0 H Nucleated Red Blood Cells # Nucleated Red Blood Cells % 0.0 Percent Iron Saturation 38 Phosphorus Level 6.6 H Platelet Count 270 Platelet Estimate PLT APPEAR ADEQUATE Potassium Level 5.5 H Red Blood Count 3.02 L Red Cell Distribution Width 15.8 H Sodium Level 139 Total Bilirubin 0.1 L Total Iron Binding Capacity 208 L Total Protein 5.3 L White Blood Count 13.7 H Test 03/11/16 09:00 03/11/16 12:20 03/11/16 13:04 Bedside Glucose 223 H 174 Hematocrit 25.7 L Hemoglobin 8.4 L Medications Current Medications Brimonidine Tartrate (Alphagan 0.2%) 1 drop Q8 BOTH EYES Last administered on 03/11/16at 05:34; Admin Dose 1 DROP; Start 03/01/16 at 06:00 Clonidine (Catapres) 0.2 mg TID PO Last administered on 03/10/16at 20:58; Admin Dose 0.2 MG; Start 03/01/16 at 09:00 Latanoprost (Xalatan) 1 drop QHS BOTH EYES Last administered on 03/10/16 21: 04; Admin Dose 1 DROP; Start 03/01/16 at 21:00 Mycophenolate Mofetil (Cellcept) 500 mg BID PO Last administered on 03/11/16at 11:06; Admin Dose 500 MG; Start 03/01/16 at 09:00 Gabapentin (Neurontin) 300 mg Q8H PO Last administered on 03/11/16at 10:58; Admin Dose 300 MG; Start 03/01/16 at 02:00 Acetaminophen (Tylenol Tab) 650 mg Q4H PRN PO pain/fever Last administered on 03/08/16at 12:49; Admin Dose 650 MG; Start 03/01/16 at 01:00 Ondansetron HCl (Zofran Inj) 4 mg Q4H PRN IV nausea Last administered on at 02:23; Admin Dose 4 MG; Start 03/01/16 at 01:00 Morphine Sulfate (morphine) 2 mg Q2H PRN IV pain Last administered on at 11:42; Admin Dose 2 MG; Start 03/01/16 at 01:00 Hydralazine HCl (Apresoline) 25 mg Q6H PRN PO sbp>160; Start 03/01/16 at 01:00 Diltiazem HCl (Cardizem) 30 mg Q6H PO Last administered on 03/11/16at 14:47; Admin Dose 30 MG; Start 03/01/16 at 02:00 Miscellaneous Information 1 ea NOTE XX ; Start 03/01/16 at 02:00 Glucose (Glutose) 15 gm Q15M PRN PO DECREASED GLUCOSE; Start 03/01/16 at 02:00 Glucose (Glutose) 22.5 gm Q15M PRN PO DECREASED GLUCOSE; Start 03/01/16 at 02: 00 Dextrose (D50w Syringe) 25 ml Q15M PRN IV DECREASED GLUCOSE; Start 03/01/16 at 02:00 Dextrose (D50w Syringe) 50 ml Q15M PRN IV DECREASED GLUCOSE; Start 03/01/16 at 02:00 Glucagon (Glucagen) 1 mg Q15M PRN IM DECREASED GLUCOSE; Start 03/01/16 at 02: 00 Glucose (Glutose) 15 gm Q15M PRN BUCCAL DECREASED GLUCOSE; Start 03/01/16 at 02:00 Diagnostic Test (Pha) (Accucheck) 1 ea 02 XX Last administered on 03/10/16at 02 :21; Admin Dose 1 EA; Start 03/02/16 at 02:00 Bisacodyl (Dulcolax Supp) 10 mg DAILY PRN SC CONSTIPATION Last administered on 03/08/16at 23:47; Admin Dose 10 MG; Start 03/03/16 at 11:30 Clotrimazole (Lotrimin Cr) 1 applic BID TOP Last administered on 03/11/16at 11: 05; Admin Dose 1 APPLIC; Start 03/03/16 at 13:30 Insulin Glargine (Lantus) 40 unit QHS SC Last administered on 03/10/16at 21:06 ; Admin Dose 40 UNIT; Start 03/04/16 at 21:00 Docusate Sodium (Colace) 100 mg BID PO Last administered on 03/11/16at 11:04; Admin Dose 100 MG; Start 03/05/16 at 10:30 Magnesium Hydroxide 30 ml 30 ml DAILY PRN PO CONSTIPATION Last administered on 03/08/16at 12:37; Admin Dose 30 ML; Start 03/05/16 at 10:30 Sodium Chloride (NS) 1,000 ml @ 75 mls/hr [id number] IV Last administered on at 12:15; Admin Dose 75 MLS/HR; Start 03/06/16 at 14:30 Lactulose (Enulose) 20 gm Q8 PO Last administered on 03/11/16at 14:46; Admin Dose 20 GM; Start 03/07/16 at 17:00 Sodium Chloride (Deep Sea) 1 spray Q4H PRN NASAL NASAL CONGESTION; Start 03/07 at 17:30 Ondansetron HCl 4 mg 4 mg Q4H PRN IV NAUSEA AND/OR VOMITING; Start 03/08/16 at 23:30 Levofloxacin/ Dextrose (Levaquin 250 Mg/ D5W 50 ml (Pmx)) 50 ml @ 50 mls/hr Q48H IVPB Last administered on 03/11/16at 05:37; Admin Dose 50 MLS/HR; Start 03/11/16 at 06:00 Pantoprazole (Protonix Iv) 40 mg BID@06,18 IV Last administered on 03/11/16at 05:33; Admin Dose 40 MG; Start 03/10/16 at 06:00 Magnesium Citrate (Citroma) 300 ml DAILY PO Last administered on 03/10/16at 12: 30; Admin Dose 300 ML; Start 03/10/16 at 10:13 Fentanyl (Duragesic 75 Mcg/Hr Patch) 1 patch Q72H TRANSDERM Last administered on 03/11/16at 09:00; Admin Dose 1 PATCH; Start 03/11/16 at 09:00 Methylprednisolone Sodium Succinate (Solu-Medrol) 40 mg DAILY IV ; Start at 09:00 Assessment/Plan Chief Complaint/Hosp Course ANTIMICROBIALS: Levaquin PHYSICAL EXAMINATION GENERAL: This is a morbidly obese, elderly woman who is lying comfortably in bed. HEENT: Head atraumatic, normocephalic. Sclerae are anicteric. Buccal mucosa dry. NECK: Supple. CHEST: Rise symmetrical. Breath sounds with scattered crackles to mostly upper rodriguez. ABDOMEN: Distended, semi-soft, with hyperactive bowel tones left upper quadrant and normal bowel tones, slightly diminished throughout elsewhere. EXTREMITIES: With trace edema. ASSESSMENT 1. Systemic inflammatory response syndrome with leukocytosis==> remains on steroids. 2. Acute hypoxemic respiratory failure, questionable aspiration pneumonia. 3. Chronic obstructive pulmonary disease. 4. Grpvd-[id number] kidney disease. 5. Diabetes. 6. 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 7. Obesity. 8. Constipation PLAN: Clinically unchanged. Followed by multiple consultants, needs NGT/ colonoscopy, continue abx [facility] [place] Problems: LEÓN PAK NP Mar 11, 2016 15:02
[2016-03-11] MEDS: INSULIN GLARGINE [LANtus] 3 ML PEN SC SCH (21:00)
[2016-03-11] MEDS: LATANOPROST 0.005% 2.5 ML OPH BOTH EYES SCH (21:18)
[2016-03-11 23:32] LABS: HEMATOCRIT 25.3 % (37.0-47.0); HEMOGLOBIN 8.1 g/dl (12.0-16.0)
[2016-03-11 23:43] LABS: CREATININE 2.27 mg/dl (0.44-1.00)
[2016-03-11 23:44] LABS: CALCIUM 7.9 mg/dl (8.4-10.2)
[2016-03-12] VITALS (13 sets, daily range): BP systolic 128–146; BP diastolic 57–65; PULSE 86–143; RESP 17–20
[2016-03-12] MEDS: SOD CHLORIDE 0.9% 1,000 ML IV SCH ×2 (00:48→15:20)
[2016-03-12] MEDS: ALBUTEROL/IPRATROPIUM (NEB) 3 ML AMP HHN SCH ×4 (01:31→19:37)
[2016-03-12] MEDS: GABAPENTIN 300 MG CAP PO SCH ×3 (01:51→18:22)
[2016-03-12] MEDS: DILTIAZEM 30 MG TAB PO SCH ×4 (01:52→22:33)
[2016-03-12] MEDS: ACCUCHECK AT 2AM (Patients on SS coverage) XX SCH (01:58)
[2016-03-12] MEDS: LACTULOSE 30ML CUP PO SCH ×3 (05:03→22:00)
[2016-03-12] MEDS: PANTOPRAZOLE 40 MG INJ IV SCH ×2 (05:04→18:22)
[2016-03-12] MEDS: BRIMONIDINE 0.2% 5 ML BTL BOTH EYES SCH ×3 (05:04→22:34)
[2016-03-12 06:19] LABS: HEMATOCRIT 24.6 % (37.0-47.0); MEAN CORPUSCULAR HEMOGLOBIN 26.6 pg (29.0-33.0); MEAN CORPUSCULAR HGB CONC 32.5 g/dl (32.0-37.0); MEAN CORPUSCULAR VOLUME 81.7 fl (82.0-101.0); PLATELET COUNT 291 10^3/UL (140-440); RED BLOOD COUNT 3.01 10^6/ul (4.20-5.40); UNCORRECTED WBC 13.9 10^3/ul (4.8-10.8); WHITE BLOOD COUNT 13.9 10^3/ul (4.8-10.8)
[2016-03-12 06:26] LABS: INR 1.21; PROTIME 15.4 Sec (12.2-14.2); PT RATIO 1.2
[2016-03-12 06:32] LABS: CONDITION 1
[2016-03-12 06:33] LABS: LH ANALYZER COMMENTS 1
[2016-03-12 06:35] LABS: PARTIAL THROMBOPLASTIN TIME 23.6 Sec (25.0-35.0)
[2016-03-12 06:39] LABS: POTASSIUM 4.9 mmol/L (3.5-5.1)
[2016-03-12 06:41] LABS: BILIRUBIN,INDIRECT 0.1 mg/dl (0-1.1); BILIRUBIN,TOTAL 0.1 mg/dl (0.2-1.3); CREATININE 2.19 mg/dl (0.44-1.00)
[2016-03-12 06:42] LABS: ALBUMIN/GLOBULIN RATIO 1.5; CALCIUM 7.9 mg/dl (8.4-10.2)
[2016-03-12] MEDS: INSULIN ASPART [NOVOLOG] 3 ML PEN SC SCH ×7 (08:34→21:00)
[2016-03-12] MEDS: MAGNESIUM CITRATE 300 ML BTL PO SCH (09:00)
[2016-03-12] MEDS ORDERED: METHYLPREDNISOLONE 40 MG INJ IV SCH (09:00)
[2016-03-12] MEDS: CLOTRIMAZOLE 1% 30 GM CR TOP SCH ×2 (09:14→22:35)
[2016-03-12] MEDS: DOCUSATE SODIUM 100 MG CAP PO SCH ×2 (09:14→22:33)
[2016-03-12] MEDS: MYCOPHENOLATE 250 MG CAP PO SCH ×2 (09:20→22:33)
--- NOTE | 2016-03-12 10:13 | CONS ---
Date/Time of Note Date/Time of Note DATE: 03/12/16 TIME: 10:13 Consultation Date/Type/Reason Admit Date/Time Feb 29, 2016 at 18:54 Initial Consult Date 03/08/16 Type of Consultation: id Exam/Review of Systems Vital Signs Vitals Vital Signs Date Time Temp Pulse Resp B/P Pulse Ox O2 Delivery O2 Flow Rate FiO2 03/12/16 08:25 143 03/12/16 08:16 24 98 Nasal Cannula 3.0 03/12/16 07:43 98.0 146/64 03/08/16 21:02 40 Intake and Output 03/11/16 03/11/16 03/12/16 15:00 23:00 07:00 Intake Total 1300 ml 500 ml Output Total 950 ml 800 ml Balance 350 ml -300 ml Results Result Diagram: 03/12/16 0520 03/12/16 0520 Results 24 hrs Laboratory Tests Test 03/11/16 12:20 03/11/16 13:04 03/11/16 17:43 03/11/16 20:24 Hematocrit 25.7 L Hemoglobin 8.4 L Bedside Glucose 174 71 119 Test 03/11/16 23:10 03/12/16 01:57 03/12/16 05:20 03/12/16 08:29 Anion Gap 17 H 19 H Blood Urea Nitrogen 117 H 108 H Calcium Level 7.9 L 7.9 L Carbon Dioxide Level 20 L 22 Chloride Level 106 105 Creatinine 2.27 H 2.19 H Glucose Level 137 # 195 Hematocrit 25.3 L 24.6 L Hemoglobin 8.1 L 8.0 L Potassium Level 5.0 4.9 Sodium Level 138 141 Bedside Glucose 190 250 H Activated Partial Thromboplast Time 23.6 L Alanine Aminotransferase (ALT/SGPT) 33 Albumin 3.0 L Albumin/Globulin Ratio 1.50 Alkaline Phosphatase 42 Aspartate Amino Transf (AST/SGOT) 15 Blood Morphology Comment Direct Bilirubin 0.00 Globulin 2.00 INR International Normalized Ratio 1.21 Indirect Bilirubin 0.1 Magnesium Level 4.0 H Mean Corpuscular Hemoglobin 26.6 L Mean Corpuscular Hemoglobin Concent 32.5 Mean Corpuscular Volume 81.7 L Mean Platelet Volume 8.0 Phosphorus Level 6.0 H Platelet Count 291 Prothrombin Time 15.4 H Prothrombin Time Ratio 1.2 Red Blood Count 3.01 L Red Cell Distribution Width 16.0 H Total Bilirubin 0.1 L Total Protein 5.0 L White Blood Count 13.9 H Medications Medications Current Medications Brimonidine Tartrate (Alphagan 0.2%) 1 drop Q8 BOTH EYES Last administered on 03/12/16 05:04; Admin Dose 1 DROP; Start 03/01/16 at 06:00 Clonidine (Catapres) 0.2 mg TID PO Last administered on 03/12/16 09:13; Admin Dose 0.2 MG; Start 03/01/16 at 09:00 Latanoprost (Xalatan) 1 drop QHS BOTH EYES Last administered on 03/11/16 21: 18; Admin Dose 1 DROP; Start 03/01/16 at 21:00 Mycophenolate Mofetil (Cellcept) 500 mg BID PO Last administered on 03/12/16 09:20; Admin Dose 500 MG; Start 03/01/16 at 09:00 Gabapentin (Neurontin) 300 mg Q8H PO Last administered on 03/12/16 09:13; Admin Dose 300 MG; Start 03/01/16 at 02:00 Acetaminophen (Tylenol Tab) 650 mg Q4H PRN PO pain/fever Last administered on 03/08/16 12:49; Admin Dose 650 MG; Start 03/01/16 at 01:00 Ondansetron HCl (Zofran Inj) 4 mg Q4H PRN IV nausea Last administered on 02:23; Admin Dose 4 MG; Start 03/01/16 at 01:00 Morphine Sulfate (morphine) 2 mg Q2H PRN IV pain Last administered on 11:42; Admin Dose 2 MG; Start 03/01/16 at 01:00 Hydralazine HCl (Apresoline) 25 mg Q6H PRN PO sbp>160; Start 03/01/16 at 01:00 Diltiazem HCl (Cardizem) 30 mg Q6H PO Last administered on 03/12/16 09:14; Admin Dose 30 MG; Start 03/01/16 at 02:00 Miscellaneous Information 1 ea NOTE XX ; Start 03/01/16 at 02:00 Glucose (Glutose) 15 gm Q15M PRN PO DECREASED GLUCOSE; Start 03/01/16 at 02:00 Glucose (Glutose) 22.5 gm Q15M PRN PO DECREASED GLUCOSE; Start 03/01/16 at 02: 00 Dextrose (D50w Syringe) 25 ml Q15M PRN IV DECREASED GLUCOSE; Start 03/01/16 at 02:00 Dextrose (D50w Syringe) 50 ml Q15M PRN IV DECREASED GLUCOSE; Start 03/01/16 at 02:00 Glucagon (Glucagen) 1 mg Q15M PRN IM DECREASED GLUCOSE; Start 03/01/16 at 02: 00 Glucose (Glutose) 15 gm Q15M PRN BUCCAL DECREASED GLUCOSE; Start 03/01/16 at 02:00 Diagnostic Test (Pha) (Accucheck) 1 ea 02 XX Last administered on 03/10/16at 02 :21; Admin Dose 1 EA; Start 03/02/16 at 02:00 Bisacodyl (Dulcolax Supp) 10 mg DAILY PRN IN CONSTIPATION Last administered on 03/08/16at 23:47; Admin Dose 10 MG; Start 03/03/16 at 11:30 Clotrimazole (Lotrimin Cr) 1 applic BID TOP Last administered on 03/12/16at 09: 14; Admin Dose 1 APPLIC; Start 03/03/16 at 13:30 Insulin Glargine (Lantus) 40 unit QHS SC Last administered on 03/10/16at 21:06 ; Admin Dose 40 UNIT; Start 03/04/16 at 21:00 Docusate Sodium (Colace) 100 mg BID PO Last administered on 03/12/16at 09:14; Admin Dose 100 MG; Start 03/05/16 at 10:30 Magnesium Hydroxide 30 ml 30 ml DAILY PRN PO CONSTIPATION Last administered on 03/08/16at 12:37; Admin Dose 30 ML; Start 03/05/16 at 10:30 Sodium Chloride (NS) 1,000 ml @ 75 mls/hr [id number] IV Last administered on at 00:48; Admin Dose 75 MLS/HR; Start 03/06/16 at 14:30 Lactulose (Enulose) 20 gm Q8 PO Last administered on 03/12/16at 05:03; Admin Dose 20 GM; Start 03/07/16 at 17:00 Sodium Chloride (Deep Sea) 1 spray Q4H PRN NASAL NASAL CONGESTION; Start 03/07 at 17:30 Ondansetron HCl 4 mg 4 mg Q4H PRN IV NAUSEA AND/OR VOMITING; Start 03/08/16 at 23:30 Levofloxacin/ Dextrose (Levaquin 250 Mg/ D5W 50 ml (Pmx)) 50 ml @ 50 mls/hr Q48H IVPB Last administered on 03/11/16at 05:37; Admin Dose 50 MLS/HR; Start 03/11/16 at 06:00 Pantoprazole (Protonix Iv) 40 mg BID@06,18 IV Last administered on 03/12/16at 05:04; Admin Dose 40 MG; Start 03/10/16 at 06:00 Magnesium Citrate (Citroma) 300 ml DAILY PO Last administered on 03/10/16at 12: 30; Admin Dose 300 ML; Start 03/10/16 at 10:13 Fentanyl (Duragesic 75 Mcg/Hr Patch) 1 patch Q72H TRANSDERM Last administered on 03/11/16 09:00; Admin Dose 1 PATCH; Start 03/11/16 at 09:00 Methylprednisolone Sodium Succinate (Solu-Medrol) 40 mg DAILY IV Last administered on 03/12/16 09:13; Admin Dose 40 MG; Start 03/12/16 at 09:00 TR AMES Mar 12, 2016 10:13
[2016-03-12 10:14] LABS: LYMPHOCYTES # 0.4 10^3/ul (0.8-2.9); MONOCYTE # 0.8 10^3/ul (0.3-0.9); NEUTROPHIL # 12.6 10^3/ul (1.6-7.5)
[2016-03-12 10:15] LABS: OVALOCYTES 1+
--- NOTE | 2016-03-12 10:41 | CONS ---
Date/Time of Note Date/Time of Note DATE: 03/12/16 TIME: 10:36 Assessment/Plan Assessment/Plan Chief Complaint/Hosp Course - Acute Kidney Injury - Chronic Kidney Disease ( DM nephropathy + HTN Nephrosclerosis ) - Anemia - Pulmonary disease / COPD - Pemphigoid Dz ( Immunosuppressed ) - Hypertension - Acidosis PLAN: JUAN secondary to ATN & Decrease renal Perfusion No Proteinuria on the UA ? Acute Interstitial Nephritis + Underlying renal disease due to poorly controlled DM & HTN Monitor renal closely Electrolytes stable S/P 1 dose of Albumin S/P Kayexalate 30 Grms Rectally Improving Creatinine , Non-oligouric Monitor Labs D/W daughter at bedside Problems: Consultation Date/Type/Reason Admit Date/Time Feb 29, 2016 at 18:54 Initial Consult Date 03/08/16 Type of Consultation: NEPHROLOGY Reason for Consultation Acute Kidney Injury 24 HR Interval Summary Subjective hx not possible: pt non-verbal Constitutional: no complaints Exam/Review of Systems Vital Signs Vitals Vital Signs Date Time Temp Pulse Resp B/P Pulse Ox O2 Delivery O2 Flow Rate FiO2 03/12/16 08:25 143 03/12/16 08:16 24 98 Nasal Cannula 3.0 03/12/16 07:43 98.0 146/64 03/08/16 21:02 40 Intake and Output 03/11/16 03/11/16 03/12/16 15:00 23:00 07:00 Intake Total 1300 ml 500 ml Output Total 950 ml 800 ml Balance 350 ml -300 ml Exam Constitutional: alert Psych: no complaints Head: normocephalic Eyes: nl conjunctiva ENMT: nl external ears & nose Neck: supple Respiratory: crackles/rales Cardiovascular: regular rate and rhythm, systolic murmur Gastrointestinal: soft Results Result Diagram: 03/12/16 0520 03/12/16 0520 Results 24 hrs Laboratory Tests Test 03/11/16 12:20 03/11/16 13:04 03/11/16 17:43 03/11/16 20:24 Hematocrit 25.7 L Hemoglobin 8.4 L Bedside Glucose 174 71 119 Test 03/11/16 23:10 03/12/16 01:57 03/12/16 05:20 03/12/16 08:29 Anion Gap 17 H 19 H Blood Urea Nitrogen 117 H 108 H Calcium Level 7.9 L 7.9 L Carbon Dioxide Level 20 L 22 Chloride Level 106 105 Creatinine 2.27 H 2.19 H Glucose Level 137 # 195 Hematocrit 25.3 L 24.6 L Hemoglobin 8.1 L 8.0 L Potassium Level 5.0 4.9 Sodium Level 138 141 Bedside Glucose 190 250 H Activated Partial Thromboplast Time 23.6 L Alanine Aminotransferase (ALT/SGPT) 33 Albumin 3.0 L Albumin/Globulin Ratio 1.50 Alkaline Phosphatase 42 Aspartate Amino Transf (AST/SGOT) 15 Blood Morphology Comment Differential Comment MANUAL DIFF Direct Bilirubin 0.00 Globulin 2.00 INR International Normalized Ratio 1.21 Indirect Bilirubin 0.1 Lymphocytes # 0.4 L Lymphocytes % 3.0 L Magnesium Level 4.0 H Mean Corpuscular Hemoglobin 26.6 L Mean Corpuscular Hemoglobin Concent 32.5 Mean Corpuscular Volume 81.7 L Mean Platelet Volume 8.0 Monocytes # 0.8 Monocytes % 6.0 Neutrophils # 12.6 H Neutrophils % 91.0 H Ovalocytes 1+ Phosphorus Level 6.0 H Platelet Count 291 Prothrombin Time 15.4 H Prothrombin Time Ratio 1.2 Red Blood Count 3.01 L Red Cell Distribution Width 16.0 H Total Bilirubin 0.1 L Total Protein 5.0 L White Blood Count 13.9 H Medications Medications Current Medications Brimonidine Tartrate (Alphagan 0.2%) 1 drop Q8 BOTH EYES Last administered on 03/12/16 05:04; Admin Dose 1 DROP; Start 03/01/16 at 06:00 Clonidine (Catapres) 0.2 mg TID PO Last administered on 03/12/16 09:13; Admin Dose 0.2 MG; Start 03/01/16 at 09:00 Latanoprost (Xalatan) 1 drop QHS BOTH EYES Last administered on 03/11/16 21: 18; Admin Dose 1 DROP; Start 03/01/16 at 21:00 Mycophenolate Mofetil (Cellcept) 500 mg BID PO Last administered on 03/12/16 09:20; Admin Dose 500 MG; Start 03/01/16 at 09:00 Gabapentin (Neurontin) 300 mg Q8H PO Last administered on 03/12/16 09:13; Admin Dose 300 MG; Start 03/01/16 at 02:00 Acetaminophen (Tylenol Tab) 650 mg Q4H PRN PO pain/fever Last administered on 03/08/16at 12:49; Admin Dose 650 MG; Start 03/01/16 at 01:00 Ondansetron HCl (Zofran Inj) 4 mg Q4H PRN IV nausea Last administered on at 02:23; Admin Dose 4 MG; Start 03/01/16 at 01:00 Morphine Sulfate (morphine) 2 mg Q2H PRN IV pain Last administered on at 11:42; Admin Dose 2 MG; Start 03/01/16 at 01:00 Hydralazine HCl (Apresoline) 25 mg Q6H PRN PO sbp>160; Start 03/01/16 at 01:00 Diltiazem HCl (Cardizem) 30 mg Q6H PO Last administered on 03/12/16at 09:14; Admin Dose 30 MG; Start 03/01/16 at 02:00 Miscellaneous Information 1 ea NOTE XX ; Start 03/01/16 at 02:00 Glucose (Glutose) 15 gm Q15M PRN PO DECREASED GLUCOSE; Start 03/01/16 at 02:00 Glucose (Glutose) 22.5 gm Q15M PRN PO DECREASED GLUCOSE; Start 03/01/16 at 02: 00 Dextrose (D50w Syringe) 25 ml Q15M PRN IV DECREASED GLUCOSE; Start 03/01/16 at 02:00 Dextrose (D50w Syringe) 50 ml Q15M PRN IV DECREASED GLUCOSE; Start 03/01/16 at 02:00 Glucagon (Glucagen) 1 mg Q15M PRN IM DECREASED GLUCOSE; Start 03/01/16 at 02: 00 Glucose (Glutose) 15 gm Q15M PRN BUCCAL DECREASED GLUCOSE; Start 03/01/16 at 02:00 Diagnostic Test (Pha) (Accucheck) 1 ea 02 XX Last administered on 03/10/16at 02 :21; Admin Dose 1 EA; Start 03/02/16 at 02:00 Bisacodyl (Dulcolax Supp) 10 mg DAILY PRN MT CONSTIPATION Last administered on 03/08/16at 23:47; Admin Dose 10 MG; Start 03/03/16 at 11:30 Clotrimazole (Lotrimin Cr) 1 applic BID TOP Last administered on 03/12/16at 09: 14; Admin Dose 1 APPLIC; Start 03/03/16 at 13:30 Insulin Glargine (Lantus) 40 unit QHS SC Last administered on 03/10/16 21:06 ; Admin Dose 40 UNIT; Start 03/04/16 at 21:00 Docusate Sodium (Colace) 100 mg BID PO Last administered on 03/12/16 09:14; Admin Dose 100 MG; Start 03/05/16 at 10:30 Magnesium Hydroxide 30 ml 30 ml DAILY PRN PO CONSTIPATION Last administered on 03/08/16 12:37; Admin Dose 30 ML; Start 03/05/16 at 10:30 Sodium Chloride (NS) 1,000 ml @ 75 mls/hr [id number] IV Last administered on 00:48; Admin Dose 75 MLS/HR; Start 03/06/16 at 14:30 Lactulose (Enulose) 20 gm Q8 PO Last administered on 03/12/16 05:03; Admin Dose 20 GM; Start 03/07/16 at 17:00 Sodium Chloride (Deep Sea) 1 spray Q4H PRN NASAL NASAL CONGESTION; Start 03/07 at 17:30 Ondansetron HCl 4 mg 4 mg Q4H PRN IV NAUSEA AND/OR VOMITING; Start 03/08/16 at 23:30 Levofloxacin/ Dextrose (Levaquin 250 Mg/ D5W 50 ml (Pmx)) 50 ml @ 50 mls/hr Q48H IVPB Last administered on 03/11/16 05:37; Admin Dose 50 MLS/HR; Start 03/11/16 at 06:00 Pantoprazole (Protonix Iv) 40 mg BID@06,18 IV Last administered on 03/12/16 05:04; Admin Dose 40 MG; Start 03/10/16 at 06:00 Magnesium Citrate (Citroma) 300 ml DAILY PO Last administered on 03/10/16 12: 30; Admin Dose 300 ML; Start 03/10/16 at 10:13 Fentanyl (Duragesic 75 Mcg/Hr Patch) 1 patch Q72H TRANSDERM Last administered on 03/11/16 09:00; Admin Dose 1 PATCH; Start 03/11/16 at 09:00 Methylprednisolone Sodium Succinate (Solu-Medrol) 40 mg DAILY IV Last administered on 03/12/16 09:13; Admin Dose 40 MG; Start 03/12/16 at 09:00 KAMERON EUBANKS MD Mar 12, 2016 10:41
--- NOTE | 2016-03-12 11:17 | CONS ---
Date/Time of Note Date/Time of Note DATE: 03/12/16 TIME: 11:15 Assessment/Plan Assessment/Plan Additional Assessment/Plan - Constipation, patient noncompliant will bowel prep, refused NG tube insertion - Chronic Kidney Disease ( DM nephropathy + HTN Nephrosclerosis ) - Anemia - Pulmonary disease / COPD - Pemphigoid Dz ( Immunosuppressed ) - Hypertension - Acidosis Recommendation: - May need need colonoscopy with biopsies to evaluate. - motility problem also suggested by her poorly controlled DM - continue other supportive care - Further recommendations depend on clinical course Patient seen in collaboration with Dr. Zuniga Consultation Date/Type/Reason Admit Date/Time Feb 29, 2016 at 18:54 Initial Consult Date 03/08/16 Type of Consultation: NEPHROLOGY 24 HR Interval Summary Free Text/Dictation Patient refused NG tube insertion and GoLYTELY administration No bowel movement reported Patient on maximum dose of lactulose We will add MiraLAX Exam/Review of Systems Vital Signs Vitals Vital Signs Date Time Temp Pulse Resp B/P Pulse Ox O2 Delivery O2 Flow Rate FiO2 03/12/16 08:25 143 03/12/16 08:16 24 98 Nasal Cannula 3.0 03/12/16 07:43 98.0 146/64 03/08/16 21:02 40 Intake and Output 03/11/16 03/11/16 03/12/16 15:00 23:00 07:00 Intake Total 1300 ml 500 ml Output Total 950 ml 800 ml Balance 350 ml -300 ml Exam Constitutional: Obese Head: atraumatic, normocephalic Eyes: EOMI, nl conjunctiva, nl lids, nl sclera ENMT: mucosa pink and moist, nl external ears & nose, nl lips & teeth, nl nasal mucosa & septum Neck: non-tender, supple Respiratory: labored breathing, normal air movement, wheezing Cardiovascular: nl pulses, regular rate and rhythm Gastrointestinal: bowel sounds, non-tender, soft Results Result Diagram: 03/12/16 0520 03/12/16 0520 Results 24 hrs Laboratory Tests Test 03/11/16 12:20 03/11/16 13:04 03/11/16 17:43 03/11/16 20:24 Hematocrit 25.7 L Hemoglobin 8.4 L Bedside Glucose 174 71 119 Test 03/11/16 23:10 03/12/16 01:57 03/12/16 05:20 03/12/16 08:29 Anion Gap 17 H 19 H Blood Urea Nitrogen 117 H 108 H Calcium Level 7.9 L 7.9 L Carbon Dioxide Level 20 L 22 Chloride Level 106 105 Creatinine 2.27 H 2.19 H Glucose Level 137 # 195 Hematocrit 25.3 L 24.6 L Hemoglobin 8.1 L 8.0 L Potassium Level 5.0 4.9 Sodium Level 138 141 Bedside Glucose 190 250 H Activated Partial Thromboplast Time 23.6 L Alanine Aminotransferase (ALT/SGPT) 33 Albumin 3.0 L Albumin/Globulin Ratio 1.50 Alkaline Phosphatase 42 Aspartate Amino Transf (AST/SGOT) 15 Blood Morphology Comment Differential Comment MANUAL DIFF Direct Bilirubin 0.00 Globulin 2.00 INR International Normalized Ratio 1.21 Indirect Bilirubin 0.1 Lymphocytes # 0.4 L Lymphocytes % 3.0 L Magnesium Level 4.0 H Mean Corpuscular Hemoglobin 26.6 L Mean Corpuscular Hemoglobin Concent 32.5 Mean Corpuscular Volume 81.7 L Mean Platelet Volume 8.0 Monocytes # 0.8 Monocytes % 6.0 Neutrophils # 12.6 H Neutrophils % 91.0 H Ovalocytes 1+ Phosphorus Level 6.0 H Platelet Count 291 Prothrombin Time 15.4 H Prothrombin Time Ratio 1.2 Red Blood Count 3.01 L Red Cell Distribution Width 16.0 H Total Bilirubin 0.1 L Total Protein 5.0 L White Blood Count 13.9 H Medications Medications Current Medications Brimonidine Tartrate (Alphagan 0.2%) 1 drop Q8 BOTH EYES Last administered on 03/12/16 05:04; Admin Dose 1 DROP; Start 03/01/16 at 06:00 Clonidine (Catapres) 0.2 mg TID PO Last administered on 03/12/16 09:13; Admin Dose 0.2 MG; Start 03/01/16 at 09:00 Latanoprost (Xalatan) 1 drop QHS BOTH EYES Last administered on 03/11/16 21: 18; Admin Dose 1 DROP; Start 03/01/16 at 21:00 Mycophenolate Mofetil (Cellcept) 500 mg BID PO Last administered on 03/12/16 09:20; Admin Dose 500 MG; Start 03/01/16 at 09:00 Gabapentin (Neurontin) 300 mg Q8H PO Last administered on 12/26/16at 09:13; Admin Dose 300 MG; Start 03/01/16 at 02:00 Acetaminophen (Tylenol Tab) 650 mg Q4H PRN PO pain/fever Last administered on 03/08/16at 12:49; Admin Dose 650 MG; Start 03/01/16 at 01:00 Ondansetron HCl (Zofran Inj) 4 mg Q4H PRN IV nausea Last administered on at 02:23; Admin Dose 4 MG; Start 03/01/16 at 01:00 Morphine Sulfate (morphine) 2 mg Q2H PRN IV pain Last administered on at 11:42; Admin Dose 2 MG; Start 03/01/16 at 01:00 Hydralazine HCl (Apresoline) 25 mg Q6H PRN PO sbp>160; Start 03/01/16 at 01:00 Diltiazem HCl (Cardizem) 30 mg Q6H PO Last administered on 03/12/16at 09:14; Admin Dose 30 MG; Start 03/01/16 at 02:00 Miscellaneous Information 1 ea NOTE XX ; Start 03/01/16 at 02:00 Glucose (Glutose) 15 gm Q15M PRN PO DECREASED GLUCOSE; Start 03/01/16 at 02:00 Glucose (Glutose) 22.5 gm Q15M PRN PO DECREASED GLUCOSE; Start 03/01/16 at 02: 00 Dextrose (D50w Syringe) 25 ml Q15M PRN IV DECREASED GLUCOSE; Start 03/01/16 at 02:00 Dextrose (D50w Syringe) 50 ml Q15M PRN IV DECREASED GLUCOSE; Start 03/01/16 at 02:00 Glucagon (Glucagen) 1 mg Q15M PRN IM DECREASED GLUCOSE; Start 03/01/16 at 02: 00 Glucose (Glutose) 15 gm Q15M PRN BUCCAL DECREASED GLUCOSE; Start 03/01/16 at 02:00 Diagnostic Test (Pha) (Accucheck) 1 ea 02 XX Last administered on 03/10/16at 02 :21; Admin Dose 1 EA; Start 03/02/16 at 02:00 Bisacodyl (Dulcolax Supp) 10 mg DAILY PRN CO CONSTIPATION Last administered on 03/08/16at 23:47; Admin Dose 10 MG; Start 03/03/16 at 11:30 Clotrimazole (Lotrimin Cr) 1 applic BID TOP Last administered on 03/12/16 09: 14; Admin Dose 1 APPLIC; Start 03/03/16 at 13:30 Insulin Glargine (Lantus) 40 unit QHS SC Last administered on 03/10/16 21:06 ; Admin Dose 40 UNIT; Start 03/04/16 at 21:00 Docusate Sodium (Colace) 100 mg BID PO Last administered on 03/12/16 09:14; Admin Dose 100 MG; Start 03/05/16 at 10:30 Magnesium Hydroxide 30 ml 30 ml DAILY PRN PO CONSTIPATION Last administered on 03/08/16 12:37; Admin Dose 30 ML; Start 03/05/16 at 10:30 Sodium Chloride (NS) 1,000 ml @ 75 mls/hr [id number] IV Last administered on 00:48; Admin Dose 75 MLS/HR; Start 03/06/16 at 14:30 Lactulose (Enulose) 20 gm Q8 PO Last administered on 03/12/16 05:03; Admin Dose 20 GM; Start 03/07/16 at 17:00 Sodium Chloride (Deep Sea) 1 spray Q4H PRN NASAL NASAL CONGESTION; Start 03/07 at 17:30 Ondansetron HCl 4 mg 4 mg Q4H PRN IV NAUSEA AND/OR VOMITING; Start 03/08/16 at 23:30 Levofloxacin/ Dextrose (Levaquin 250 Mg/ D5W 50 ml (Pmx)) 50 ml @ 50 mls/hr Q48H IVPB Last administered on 03/11/16 05:37; Admin Dose 50 MLS/HR; Start 03/11/16 at 06:00 Pantoprazole (Protonix Iv) 40 mg BID@06,18 IV Last administered on 03/12/16 05:04; Admin Dose 40 MG; Start 03/10/16 at 06:00 Magnesium Citrate (Citroma) 300 ml DAILY PO Last administered on 03/10/16 12: 30; Admin Dose 300 ML; Start 03/10/16 at 10:13 Fentanyl (Duragesic 75 Mcg/Hr Patch) 1 patch Q72H TRANSDERM Last administered on 03/11/16 09:00; Admin Dose 1 PATCH; Start 12/25/16 at 09:00 Methylprednisolone Sodium Succinate (Solu-Medrol) 40 mg DAILY IV Last administered on 03/12/16at 09:13; Admin Dose 40 MG; Start 03/12/16 at 09:00 TR AMES Mar 12, 2016 11:16
[2016-03-12] MEDS: POLYETHYLENE GLYCOL 17 GM PACKET PO SCH ×2 (11:30→22:35)
--- NOTE | 2016-03-12 14:34 | PN ---
Date/Time of Note Date/Time of Note DATE: 03/12/16 TIME: 13:54 Assessment/Plan VTE Prophylaxis VTE Prophylaxis Intervention: SCD's Lines/Catheters IV Catheter Type (from Nrsg): Peripheral IV Urinary Cath still in place: Yes Reason Cath still needed: other (indicate) (monitor UOP ) Assessment/Plan Assessment/Plan 85 yo female with: 1. Acute Respiratory failure, improved and now on 3L NC. ? Bronchitis/URI/ PNA with reported history of Asthma and concerns for PJP raised this weekend as patient has been on CellCept chronically Pulmonary, Dr Ornelas following Continue nebulizers, steroids taper down to 40 today, Appreciate ID recs, off bactrim Given renal function and concerns for lower Hb, d/c Eliquis for now 2. Paroxysmal A fib, no CAD per family but hx of Minor CVA ... patient should be now on anticoagulation given findings of A fib, family agreeable and will d/ c Plavix. Patient not on ASA as outpatient per Family so will also d/c Continue Cardizem and Eliquis on hold given current GI and renal issues . 3. JUAN on CKD Renal function with creatinine still around 2.9 for now and BUN still at 119, Hyponatremia resolved. S/p Tong cath with good UOP Appreciate Nephro assistance, s/p Albumin and for now continue IVF Recheck BMP and h/h this evening. Continue IVF especially in setting of hyperglycemia OFF Bactrim and Losartan Follow up Nephrology recommendations. 4. Anemia, acute with Hb 8.0, may need to transfuse in the next 24 hrs if still low No Hematemesis and no BM so far to check FOB Eliquis d/c'd so far 5. Diabetes Mellitus: Continue Accu-Cheks and sliding scale. Continue Lantus at higher dose for now as patient with elevated BG. Titrating steroids down 6. Severe Hypertension: continue Clonidine and Norvasc, maximizing Cardizem as tolerated for HR control and off all diuretics. OFF Losartan due to JUAN 7. Pemphigoid disease per family, chronic for years and has been on Cellcept. 8. Chronic Pain: on fentanyl patch, I have approached the family to d/c fentanyl patch as probably part of cause of bowel issues but they are reluctant but today agreeable to decrease dose to 75 mcg 9. Severe Constipation: on multiple meds currently + trial of enema and Mag citrate but patient unable to tolerate, Miralax added yesterday by GI Still no BM this AM, NGT "refusal" yesterday but will attempt today and give golytely CT abdo/pelvis with no evidence of abdominopelvic mass, lymphadenopathy or focal acute inflammatory pathology. Nonspecific gaseous distension of the colon with fluid stool throughout the right colon. No evidence of pneumatosis or pneumoperitoneum. Appreciate GI recommendations, may need a colonoscopy this week. 10 Nutrition: advance diet to Full liquid and dietary supp also added with Nepro and hopefully will move her bowels soon. Prophylaxis: Holding Eliquis given A fib, PPI for GI ppx Disposition: Follow up Nephrology recs today. Subjective 24 Hr Interval Summary Free Text/Dictation Patient seems improved and more awake today Taking meds but still no BM, NGT and golytely as patient still with no BM and some distension, unchanged abdo exam Afebrile and WBC stable Hb still at 8 Son Anup at bedside updated and all concerns addressed, I also discussed plan of care with GI and ID Renal function improved and will discuss further plan of care with Nephrology Exam/Review of Systems Vital Signs Vitals Vital Signs Date Time Temp Pulse Resp B/P Pulse Ox O2 Delivery O2 Flow Rate FiO2 03/12/16 12:14 127 03/12/16 11:28 97.5 18 128/57 99 03/12/16 08:16 Nasal Cannula 3.0 03/08/16 21:02 40 Intake and Output 03/11/16 03/11/16 03/12/16 15:00 23:00 07:00 Intake Total 1300 ml 500 ml Output Total 950 ml 800 ml Balance 350 ml -300 ml Exam Constitutional: alert, oriented, other (more awake ) Respiratory: diminished breath sounds (at bases bilaterally ), normal air movement Cardiovascular: irregular rhythm (in A fib ) Gastrointestinal: bowel sounds (diminished ), distended (slightly less ), soft Musculoskeletal: nl extremities to inspection Extremities: edema (+ 1 edema ), normal pulses Neurological: EQUINE VET II-XII intact, nl mental status, nl speech, other ( generalised weakness ) Results Result Diagram: 03/12/16 0520 03/12/16 0520 Results 24 hrs Laboratory Tests Test 03/11/16 17:43 03/11/16 20:24 03/11/16 23:10 03/12/16 01:57 Bedside Glucose 71 119 190 Anion Gap 17 H Blood Urea Nitrogen 117 H Calcium Level 7.9 L Carbon Dioxide Level 20 L Chloride Level 106 Creatinine 2.27 H Glucose Level 137 # Hematocrit 25.3 L Hemoglobin 8.1 L Potassium Level 5.0 Sodium Level 138 Test 03/12/16 05:20 03/12/16 08:29 03/12/16 12:41 Activated Partial Thromboplast Time 23.6 L Alanine Aminotransferase (ALT/SGPT) 33 Albumin 3.0 L Albumin/Globulin Ratio 1.50 Alkaline Phosphatase 42 Anion Gap 19 H Aspartate Amino Transf (AST/SGOT) 15 Blood Morphology Comment Blood Urea Nitrogen 108 H Calcium Level 7.9 L Carbon Dioxide Level 22 Chloride Level 105 Creatinine 2.19 H Differential Comment MANUAL DIFF Direct Bilirubin 0.00 Globulin 2.00 Glucose Level 195 Hematocrit 24.6 L Hemoglobin 8.0 L INR International Normalized Ratio 1.21 Indirect Bilirubin 0.1 Lymphocytes # 0.4 L Lymphocytes % 3.0 L Magnesium Level 4.0 H Mean Corpuscular Hemoglobin 26.6 L Mean Corpuscular Hemoglobin Concent 32.5 Mean Corpuscular Volume 81.7 L Mean Platelet Volume 8.0 Monocytes # 0.8 Monocytes % 6.0 Neutrophils # 12.6 H Neutrophils % 91.0 H Ovalocytes 1+ Phosphorus Level 6.0 H Platelet Count 291 Potassium Level 4.9 Prothrombin Time 15.4 H Prothrombin Time Ratio 1.2 Red Blood Count 3.01 L Red Cell Distribution Width 16.0 H Sodium Level 141 Total Bilirubin 0.1 L Total Protein 5.0 L White Blood Count 13.9 H Bedside Glucose 250 H 174 Medications Medications Current Medications Brimonidine Tartrate (Alphagan 0.2%) 1 drop Q8 BOTH EYES Last administered on 03/12/16at 13:39; Admin Dose 1 DROP; Start 03/01/16 at 06:00 Clonidine (Catapres) 0.2 mg TID PO Last administered on 03/12/16at 13:38; Admin Dose 0.2 MG; Start 03/01/16 at 09:00 Latanoprost (Xalatan) 1 drop QHS BOTH EYES Last administered on 03/11/16at 21: 18; Admin Dose 1 DROP; Start 03/01/16 at 21:00 Mycophenolate Mofetil (Cellcept) 500 mg BID PO Last administered on 03/12/16at 09:20; Admin Dose 500 MG; Start 03/01/16 at 09:00 Gabapentin (Neurontin) 300 mg Q8H PO Last administered on 03/12/16at 09:13; Admin Dose 300 MG; Start 03/01/16 at 02:00 Acetaminophen (Tylenol Tab) 650 mg Q4H PRN PO pain/fever Last administered on 03/08/16at 12:49; Admin Dose 650 MG; Start 03/01/16 at 01:00 Ondansetron HCl (Zofran Inj) 4 mg Q4H PRN IV nausea Last administered on at 02:23; Admin Dose 4 MG; Start 03/01/16 at 01:00 Morphine Sulfate (morphine) 2 mg Q2H PRN IV pain Last administered on at 11:42; Admin Dose 2 MG; Start 03/01/16 at 01:00 Hydralazine HCl (Apresoline) 25 mg Q6H PRN PO sbp>160; Start 03/01/16 at 01:00 Diltiazem HCl (Cardizem) 30 mg Q6H PO Last administered on 03/12/16at 13:39; Admin Dose 30 MG; Start 03/01/16 at 02:00 Miscellaneous Information 1 ea NOTE XX ; Start 03/01/16 at 02:00 Glucose (Glutose) 15 gm Q15M PRN PO DECREASED GLUCOSE; Start 03/01/16 at 02:00 Glucose (Glutose) 22.5 gm Q15M PRN PO DECREASED GLUCOSE; Start 03/01/16 at 02: 00 Dextrose (D50w Syringe) 25 ml Q15M PRN IV DECREASED GLUCOSE; Start 03/01/16 at 02:00 Dextrose (D50w Syringe) 50 ml Q15M PRN IV DECREASED GLUCOSE; Start 03/01/16 at 02:00 Glucagon (Glucagen) 1 mg Q15M PRN IM DECREASED GLUCOSE; Start 03/01/16 at 02: 00 Glucose (Glutose) 15 gm Q15M PRN BUCCAL DECREASED GLUCOSE; Start 03/01/16 at 02:00 Diagnostic Test (Pha) (Accucheck) 1 ea 02 XX Last administered on 03/10/16at 02 :21; Admin Dose 1 EA; Start 03/02/16 at 02:00 Bisacodyl (Dulcolax Supp) 10 mg DAILY PRN CA CONSTIPATION Last administered on 03/08/16 23:47; Admin Dose 10 MG; Start 03/03/16 at 11:30 Clotrimazole (Lotrimin Cr) 1 applic BID TOP Last administered on 03/12/16 09: 14; Admin Dose 1 APPLIC; Start 03/03/16 at 13:30 Insulin Glargine (Lantus) 40 unit QHS SC Last administered on 03/10/16 21:06 ; Admin Dose 40 UNIT; Start 03/04/16 at 21:00 Docusate Sodium (Colace) 100 mg BID PO Last administered on 03/12/16 09:14; Admin Dose 100 MG; Start 03/05/16 at 10:30 Magnesium Hydroxide 30 ml 30 ml DAILY PRN PO CONSTIPATION Last administered on 03/08/16 12:37; Admin Dose 30 ML; Start 03/05/16 at 10:30 Sodium Chloride (NS) 1,000 ml @ 75 mls/hr [id number] IV Last administered on at 00:48; Admin Dose 75 MLS/HR; Start 03/06/16 at 14:30 Lactulose (Enulose) 20 gm Q8 PO Last administered on 03/12/16at 13:38; Admin Dose 20 GM; Start 03/07/16 at 17:00 Sodium Chloride (Deep Sea) 1 spray Q4H PRN NASAL NASAL CONGESTION; Start 03/07 at 17:30 Ondansetron HCl 4 mg 4 mg Q4H PRN IV NAUSEA AND/OR VOMITING; Start 03/08/16 at 23:30 Levofloxacin/ Dextrose (Levaquin 250 Mg/ D5W 50 ml (Pmx)) 50 ml @ 50 mls/hr Q48H IVPB Last administered on 03/11/16at 05:37; Admin Dose 50 MLS/HR; Start 03/11/16 at 06:00 Pantoprazole (Protonix Iv) 40 mg BID@06,18 IV Last administered on 03/12/16 05:04; Admin Dose 40 MG; Start 03/10/16 at 06:00 Magnesium Citrate (Citroma) 300 ml DAILY PO Last administered on 03/10/16at 12: 30; Admin Dose 300 ML; Start 03/10/16 at 10:13 Fentanyl (Duragesic 75 Mcg/Hr Patch) 1 patch Q72H TRANSDERM Last administered on 03/11/16at 09:00; Admin Dose 1 PATCH; Start 03/11/16 at 09:00 Methylprednisolone Sodium Succinate (Solu-Medrol) 40 mg DAILY IV Last administered on 03/12/16at 09:13; Admin Dose 40 MG; Start 03/12/16 at 09:00 Polyethylene Glycol (Miralax) 17 gm BID PO ; Start 03/12/16 at 11:30 AISHA TINEO Mar 12, 2016 14:04
--- NOTE | 2016-03-12 15:23 | CONS ---
Date/Time of Note Date/Time of Note DATE: 03/12/16 TIME: 15:20 Consult Date/Type/Reason Admit Date/Time Feb 29, 2016 at 18:54 Initial Consult Date 03/08/16 Type of Consultation: ID Subjective no acute changes, awake, looks comfortable, no fevers Objective Vital Signs Date Time Temp Pulse Resp B/P Pulse Ox O2 Delivery O2 Flow Rate FiO2 03/12/16 15:06 98.4 103 18 142/65 100 03/12/16 14:39 3.0 03/12/16 14:39 Nasal Cannula 03/08/16 21:02 40 Intake and Output 03/11/16 03/11/16 03/12/16 15:00 23:00 07:00 Intake Total 1300 ml 500 ml Output Total 950 ml 800 ml Balance 350 ml -300 ml Results/Medications Result Diagram: 03/12/16 0520 03/12/16 0520 Results 24 hrs Laboratory Tests Test 03/11/16 17:43 03/11/16 20:24 03/11/16 23:10 03/12/16 01:57 Bedside Glucose 71 119 190 Anion Gap 17 H Blood Urea Nitrogen 117 H Calcium Level 7.9 L Carbon Dioxide Level 20 L Chloride Level 106 Creatinine 2.27 H Glucose Level 137 # Hematocrit 25.3 L Hemoglobin 8.1 L Potassium Level 5.0 Sodium Level 138 Test 03/12/16 05:20 03/12/16 08:29 03/12/16 12:41 Activated Partial Thromboplast Time 23.6 L Alanine Aminotransferase (ALT/SGPT) 33 Albumin 3.0 L Albumin/Globulin Ratio 1.50 Alkaline Phosphatase 42 Anion Gap 19 H Aspartate Amino Transf (AST/SGOT) 15 Blood Morphology Comment Blood Urea Nitrogen 108 H Calcium Level 7.9 L Carbon Dioxide Level 22 Chloride Level 105 Creatinine 2.19 H Differential Comment MANUAL DIFF Direct Bilirubin 0.00 Globulin 2.00 Glucose Level 195 Hematocrit 24.6 L Hemoglobin 8.0 L INR International Normalized Ratio 1.21 Indirect Bilirubin 0.1 Lymphocytes # 0.4 L Lymphocytes % 3.0 L Magnesium Level 4.0 H Mean Corpuscular Hemoglobin 26.6 L Mean Corpuscular Hemoglobin Concent 32.5 Mean Corpuscular Volume 81.7 L Mean Platelet Volume 8.0 Monocytes # 0.8 Monocytes % 6.0 Neutrophils # 12.6 H Neutrophils % 91.0 H Ovalocytes 1+ Phosphorus Level 6.0 H Platelet Count 291 Potassium Level 4.9 Prothrombin Time 15.4 H Prothrombin Time Ratio 1.2 Red Blood Count 3.01 L Red Cell Distribution Width 16.0 H Sodium Level 141 Total Bilirubin 0.1 L Total Protein 5.0 L White Blood Count 13.9 H Bedside Glucose 250 H 174 Medications Current Medications Brimonidine Tartrate (Alphagan 0.2%) 1 drop Q8 BOTH EYES Last administered on 03/12/16 13:39; Admin Dose 1 DROP; Start 03/01/16 at 06:00 Clonidine (Catapres) 0.2 mg TID PO Last administered on 03/12/16 13:38; Admin Dose 0.2 MG; Start 03/01/16 at 09:00 Latanoprost (Xalatan) 1 drop QHS BOTH EYES Last administered on 03/11/16 21: 18; Admin Dose 1 DROP; Start 03/01/16 at 21:00 Mycophenolate Mofetil (Cellcept) 500 mg BID PO Last administered on 03/12/16 09:20; Admin Dose 500 MG; Start 03/01/16 at 09:00 Gabapentin (Neurontin) 300 mg Q8H PO Last administered on 03/12/16 09:13; Admin Dose 300 MG; Start 03/01/16 at 02:00 Acetaminophen (Tylenol Tab) 650 mg Q4H PRN PO pain/fever Last administered on 03/08/16 12:49; Admin Dose 650 MG; Start 03/01/16 at 01:00 Ondansetron HCl (Zofran Inj) 4 mg Q4H PRN IV nausea Last administered on 02:23; Admin Dose 4 MG; Start 03/01/16 at 01:00 Morphine Sulfate (morphine) 2 mg Q2H PRN IV pain Last administered on 11:42; Admin Dose 2 MG; Start 03/01/16 at 01:00 Hydralazine HCl (Apresoline) 25 mg Q6H PRN PO sbp>160; Start 03/01/16 at 01:00 Diltiazem HCl (Cardizem) 30 mg Q6H PO Last administered on 03/12/16 13:39; Admin Dose 30 MG; Start 03/01/16 at 02:00 Miscellaneous Information 1 ea NOTE XX ; Start 03/01/16 at 02:00 Glucose (Glutose) 15 gm Q15M PRN PO DECREASED GLUCOSE; Start 03/01/16 at 02:00 Glucose (Glutose) 22.5 gm Q15M PRN PO DECREASED GLUCOSE; Start 03/01/16 at 02: 00 Dextrose (D50w Syringe) 25 ml Q15M PRN IV DECREASED GLUCOSE; Start 03/01/16 at 02:00 Dextrose (D50w Syringe) 50 ml Q15M PRN IV DECREASED GLUCOSE; Start 03/01/16 at 02:00 Glucagon (Glucagen) 1 mg Q15M PRN IM DECREASED GLUCOSE; Start 03/01/16 at 02: 00 Glucose (Glutose) 15 gm Q15M PRN BUCCAL DECREASED GLUCOSE; Start 03/01/16 at 02:00 Diagnostic Test (Pha) (Accucheck) 1 ea 02 XX Last administered on 03/10/16at 02 :21; Admin Dose 1 EA; Start 03/02/16 at 02:00 Bisacodyl (Dulcolax Supp) 10 mg DAILY PRN CA CONSTIPATION Last administered on 03/08/16at 23:47; Admin Dose 10 MG; Start 03/03/16 at 11:30 Clotrimazole (Lotrimin Cr) 1 applic BID TOP Last administered on 03/12/16at 09: 14; Admin Dose 1 APPLIC; Start 03/03/16 at 13:30 Insulin Glargine (Lantus) 40 unit QHS SC Last administered on 03/10/16at 21:06 ; Admin Dose 40 UNIT; Start 03/04/16 at 21:00 Docusate Sodium (Colace) 100 mg BID PO Last administered on 03/12/16at 09:14; Admin Dose 100 MG; Start 03/05/16 at 10:30 Magnesium Hydroxide 30 ml 30 ml DAILY PRN PO CONSTIPATION Last administered on 03/08/16at 12:37; Admin Dose 30 ML; Start 03/05/16 at 10:30 Sodium Chloride (NS) 1,000 ml @ 75 mls/hr [id number] IV Last administered on at 00:48; Admin Dose 75 MLS/HR; Start 03/06/16 at 14:30 Lactulose (Enulose) 20 gm Q8 PO Last administered on 03/12/16at 13:38; Admin Dose 20 GM; Start 03/07/16 at 17:00 Sodium Chloride (Deep Sea) 1 spray Q4H PRN NASAL NASAL CONGESTION; Start 03/07 at 17:30 Ondansetron HCl 4 mg 4 mg Q4H PRN IV NAUSEA AND/OR VOMITING; Start 03/08/16 at 23:30 Levofloxacin/ Dextrose (Levaquin 250 Mg/ D5W 50 ml (Pmx)) 50 ml @ 50 mls/hr Q48H IVPB Last administered on 03/11/16at 05:37; Admin Dose 50 MLS/HR; Start 03/11/16 at 06:00 Pantoprazole (Protonix Iv) 40 mg BID@06,18 IV Last administered on 03/12/16at 05:04; Admin Dose 40 MG; Start 03/10/16 at 06:00 Magnesium Citrate (Citroma) 300 ml DAILY PO Last administered on 03/10/16at 12: 30; Admin Dose 300 ML; Start 03/10/16 at 10:13 Fentanyl (Duragesic 75 Mcg/Hr Patch) 1 patch Q72H TRANSDERM Last administered on 03/11/16at 09:00; Admin Dose 1 PATCH; Start 03/11/16 at 09:00 Methylprednisolone Sodium Succinate (Solu-Medrol) 40 mg DAILY IV Last administered on 03/12/16at 09:13; Admin Dose 40 MG; Start 03/12/16 at 09:00 Polyethylene Glycol (Miralax) 17 gm BID PO ; Start 03/12/16 at 11:30 Assessment/Plan Chief Complaint/Hosp Course ANTIMICROBIALS: Levaquin PHYSICAL EXAMINATION GENERAL: This is a morbidly obese, elderly woman who is lying comfortably in bed. HEENT: Head atraumatic, normocephalic. Sclerae are anicteric. Buccal mucosa dry. NECK: Supple. CHEST: Rise symmetrical. Breath sounds with scattered crackles to mostly upper rodriguez. ABDOMEN: Distended, semi-soft, with hyperactive bowel tones left upper quadrant and normal bowel tones, slightly diminished throughout elsewhere. EXTREMITIES: With trace edema. ASSESSMENT 1. Systemic inflammatory response syndrome with leukocytosis==> remains on steroids. 2. Acute hypoxemic respiratory failure, questionable aspiration pneumonia. 3. Chronic obstructive pulmonary disease. 4. [id number] kidney disease. 5. Diabetes. 6. 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 7. Obesity. 8. Constipation PLAN: Clinically stable. Continue present care, f/u nephrology rec-s, needs NGT/ colonoscopy, continue abx DW family at bedside [place]IS[place] Problems: LEÓN PAK NP Mar 12, 2016 15:23
[2016-03-12] MEDS: LATANOPROST 0.005% 2.5 ML OPH BOTH EYES SCH (21:00)
[2016-03-12] MEDS: INSULIN GLARGINE [LANtus] 3 ML PEN SC SCH (22:40)
[2016-03-12] MEDS ORDERED: LORAZEPAM 0.5 MG TAB PO PRN (23:00)
[2016-03-13] VITALS (15 sets, daily range): BP systolic 114–175; BP diastolic 56–76; PULSE 87–146; RESP 15–21
[2016-03-13] MEDS: ACCUCHECK AT 2AM (Patients on SS coverage) XX SCH (02:00)
[2016-03-13] MEDS: DILTIAZEM 30 MG TAB PO SCH ×4 (02:00→20:09)
[2016-03-13] MEDS: ALBUTEROL/IPRATROPIUM (NEB) 3 ML AMP HHN SCH ×4 (02:16→20:14)
[2016-03-13] MEDS: GABAPENTIN 300 MG CAP GTB SCH ×3 (05:28→20:23)
[2016-03-13] MEDS: LACTULOSE 30ML CUP PO SCH ×3 (05:28→17:39)
[2016-03-13] MEDS: BRIMONIDINE 0.2% 5 ML BTL BOTH EYES SCH ×3 (05:32→20:10)
[2016-03-13] MEDS: SOD CHLORIDE 0.9% 1,000 ML IV SCH ×2 (05:32→20:25)
[2016-03-13] MEDS: LEVOFLOXACIN 250MG/D5W (PMX) 50 ML IVPB SCH (05:32)
[2016-03-13] MEDS: PANTOPRAZOLE 40 MG INJ IV SCH ×2 (05:32→17:38)
[2016-03-13 07:07] LABS: MAGNESIUM 3.6 mg/dl (1.7-2.5); PHOSPHORUS 4.9 mg/dl (2.5-4.9)
[2016-03-13 07:09] LABS: CREATININE 1.83 mg/dl (0.44-1.00)
[2016-03-13 07:10] LABS: CALCIUM 8.4 mg/dl (8.4-10.2)
[2016-03-13 07:23] LABS: HEMATOCRIT 25.9 % (37.0-47.0); HEMOGLOBIN 8.3 g/dl (12.0-16.0); MEAN CORPUSCULAR HEMOGLOBIN 26.2 pg (29.0-33.0); MEAN CORPUSCULAR HGB CONC 32.1 g/dl (32.0-37.0); MEAN CORPUSCULAR VOLUME 81.6 fl (82.0-101.0); MEAN PLATELET VOLUME 7.8 fl (7.4-10.4); PLATELET COUNT 303 10^3/UL (140-440); RED BLOOD COUNT 3.18 10^6/ul (4.20-5.40); RED CELL DISTRIBUTION WIDTH 15.9 % (11.5-14.5); UNCORRECTED WBC 20.6 10^3/ul (4.8-10.8); WHITE BLOOD COUNT 20.6 10^3/ul (4.8-10.8)
[2016-03-13 07:38] LABS: CONDITION 1; LH ANALYZER COMMENTS 1
[2016-03-13] MEDS: INSULIN ASPART [NOVOLOG] 3 ML PEN SC SCH ×7 (07:55→20:10)
[2016-03-13] MEDS: POLYETHYLENE GLYCOL 17 GM PACKET PO SCH (09:00)
[2016-03-13] MEDS: MAGNESIUM CITRATE 300 ML BTL PO SCH (09:00)
--- NOTE | 2016-03-13 10:01 | RADRPT ---
PROCEDURE: XR Chest. CLINICAL INDICATION: Chest pain TECHNIQUE: Single frontal view of the chest was obtained COMPARISON: 03/09/2016 FINDINGS: The heart is enlarged. The thoracic aorta is calcified. There are bibasilar atelectatic changes. There is a small left pleural effusion. There are chronic interstitial changes throughout the lungs. RPTAT: AA IMPRESSION: Mild cardiomegaly. Calcified aorta consistent with atherosclerotic disease. Bibasilar atelectatic changes and a small left pleural effusion. Chronic interstitial changes throughout the lungs. No focal consolidation. .Konstantin Brown MD, Date Time Electronically viewed and signed by .Konstantin Brown MD, on 03/13/2016 10:00 .S/
--- NOTE | 2016-03-13 10:02 | RADRPT ---
PROCEDURE: XR Abdomen. CLINICAL INDICATION: Abdominal pain TECHNIQUE: AP abdomen x-ray. COMPARISON: 03/09/2016 FINDINGS: The bowel gas pattern is normal. The colon is fecal filled. There is no evidence of obstruction. Th ere are no abnormal calcifications overlying the urinary tracts. The patient is status post kyphoplasty of the L3 vertebral body. RPTAT: AA IMPRESSION: Fecal filled colon. .Konstantin Brown MD, MD Date Time Electronically viewed and signed by .Konstantin Brown MD, on 03/13/2016 10:01 .S/
--- NOTE | 2016-03-13 10:38 | PN ---
Date/Time of Note Date/Time of Note DATE: 03/13/16 TIME: 10:36 Assessment/Plan VTE Prophylaxis VTE Prophylaxis Intervention: SCD's Lines/Catheters IV Catheter Type (from Nrs): [place] Urinary Cath still in place: Yes Reason Cath still needed: other (indicate) Assessment/Plan Assessment/Plan 85 yo female with: 1. Severe Constipation: on multiple meds currently + trial of enema and Mag citrate but patient unable to tolerate, Miralax added yesterday by GI Still no BM this AM, NGT "refusal"/ unable to place as patient could not tolerate KUB showing colon full of fecal matter, Tap water enema and fecal disimpaction today to be re attempted today and give golytely if needed CT abdo/pelvis again reviewed with Radiology and confirming constipation with no evidence of abdominopelvic mass, lymphadenopathy or focal acute inflammatory pathology. Nonspecific gaseous distension of the colon with fluid stool throughout the right colon. No evidence of pneumatosis or pneumoperitoneum. Need further GI evaluation and recommendations, Lactic acid pending May need a colonoscopy this week. 2. Acute Respiratory failure, improved and now on 3L NC and stable so far. ? Bronchitis/URI/ PNA with reported history of Asthma and concerns for PJP raised this weekend as patient has been on CellCept chronically Pulmonary, Dr Ornelas following Continue nebulizers, steroids taper down to 30 today, Appreciate ID recs, off bactrim Given renal function and concerns for lower Hb, d/c Eliquis for now WBC up but CXR OK 3. Paroxysmal A fib, no CAD per family but hx of Minor CVA ... patient should be now on anticoagulation given findings of A fib, family agreeable and will d/ c Plavix. Patient not on ASA as outpatient per Family so will also d/c Continue Cardizem and Eliquis on hold given current GI and renal issues . 4. JUAN on CKD Renal function improving with creat down to 1.83 and BUN down to 96, Hyponatremia resolved. S/p Tong cath with good UOP Appreciate Nephro assistance, s/p Albumin and for now continue IVF Monitor BMP OFF Bactrim and Losartan Follow up further Nephrology recommendations. 5. Anemia, acute with Hb 8.3, monitor closely No Hematemesis and no BM so far to check FOB Eliquis d/c'd so far 6. Diabetes Mellitus: Continue Accu-Cheks and sliding scale. Continue Lantus at higher dose for now as patient with elevated BG. Titrating steroids down 7. Severe Hypertension: continue Clonidine and Norvasc, maximizing Cardizem as tolerated for HR control and off all diuretics. OFF Losartan due to JUAN 8. Pemphigoid disease per family, chronic for years and has been on Cellcept. 9. Chronic Pain: on fentanyl patch, I have approached the family to d/c fentanyl patch as probably part of cause of bowel issues but they are reluctant but today agreeable to decrease dose to 75 mcg 10 Nutrition: advance diet to Full liquid and dietary supp also added with Nepro and hopefully will move her bowels soon. Prophylaxis: Holding Eliquis given A fib, PPI for GI ppx Disposition: Tap water enema and manual fecal disimpaction attempt today, f/u lactic acid Follow up Nephrology recs today. Subjective 24 Hr Interval Summary Free Text/Dictation Patient awake, alert, wants to get out of bed to chair on exam seems to complain of lower abdo discomfort now WBC up to 20 ?? but renal function better and respiratory status stable, Lactate pending CXR remains stable and AXR showing colon full with fecal matter Still no BM and attempted to put NGT yesterday, patient could not tolerate it Still on aggressive bowel regimen and will re attempt tap water enema and Exam/Review of Systems Vital Signs Vitals Vital Signs Date Time Temp Pulse Resp B/P Pulse Ox O2 Delivery O2 Flow Rate FiO2 03/13/16 08:23 131 03/13/16 08:08 20 90 Nasal Cannula 3.0 03/13/16 07:57 98.6 175/70 Intake and Output 03/12/16 03/12/16 03/13/16 15:00 23:00 07:00 Intake Total 1300 ml 1150 ml Output Total 1200 ml 900 ml Balance 100 ml 250 ml Exam Constitutional: alert, obese, oriented Respiratory: clear to auscultation (upper lobes and decreased at bases), normal air movement Cardiovascular: irregular rhythm (A fib ), nl pulses Gastrointestinal: bowel sounds (decreased ), soft, tender (discomfort lower abdo ) Extremities: normal pulses 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, nl mental status, nl speech, other ( generalised weakness ) Results Result Diagram: 03/13/16 0600 03/13/16 0600 Results 24 hrs Laboratory Tests Test 03/12/16 12:41 03/12/16 18:04 03/12/16 22:37 03/13/16 06:00 Bedside Glucose 174 308 H 182 Anion Gap 16 Blood Morphology Comment Blood Urea Nitrogen 96 H Calcium Level 8.4 Carbon Dioxide Level 27 Chloride Level 107 Creatinine 1.83 H Glucose Level 125 # Hematocrit 25.9 L Hemoglobin 8.3 L Magnesium Level 3.6 H Mean Corpuscular Hemoglobin 26.2 L Mean Corpuscular Hemoglobin Concent 32.1 Mean Corpuscular Volume 81.6 L Mean Platelet Volume 7.8 Nucleated Red Blood Cells # Pending Nucleated Red Blood Cells % Pending Phosphorus Level 4.9 Platelet Count 303 Potassium Level 4.0 Red Blood Count 3.18 L Red Cell Distribution Width 15.9 H Sodium Level 146 H White Blood Count 20.6 #H Test 03/13/16 09:00 Bedside Glucose 115 Medications Medications Current Medications Brimonidine Tartrate (Alphagan 0.2%) 1 drop Q8 BOTH EYES Last administered on 03/13/16at 05:32; Admin Dose 1 DROP; Start 03/01/16 at 06:00 Clonidine (Catapres) 0.2 mg TID PO Last administered on 03/12/16at 22:33; Admin Dose 0.2 MG; Start 03/01/16 at 09:00 Latanoprost (Xalatan) 1 drop QHS BOTH EYES Last administered on 03/12/16 21: 00; Admin Dose 1 DROP; Start 03/01/16 at 21:00 Mycophenolate Mofetil (Cellcept) 500 mg BID PO Last administered on 03/12/16 22:33; Admin Dose 500 MG; Start 03/01/16 at 09:00 Acetaminophen (Tylenol Tab) 650 mg Q4H PRN PO pain/fever Last administered on 03/08/16at 12:49; Admin Dose 650 MG; Start 03/01/16 at 01:00 Ondansetron HCl (Zofran Inj) 4 mg Q4H PRN IV nausea Last administered on 02:23; Admin Dose 4 MG; Start 03/01/16 at 01:00 Morphine Sulfate (morphine) 2 mg Q2H PRN IV pain Last administered on at 11:42; Admin Dose 2 MG; Start 03/01/16 at 01:00 Hydralazine HCl (Apresoline) 25 mg Q6H PRN PO sbp>160; Start 03/01/16 at 01:00 Diltiazem HCl (Cardizem) 30 mg Q6H PO Last administered on 03/12/16at 22:33; Admin Dose 30 MG; Start 03/01/16 at 02:00 Miscellaneous Information 1 ea NOTE XX ; Start 03/01/16 at 02:00 Glucose (Glutose) 15 gm Q15M PRN PO DECREASED GLUCOSE; Start 03/01/16 at 02:00 Glucose (Glutose) 22.5 gm Q15M PRN PO DECREASED GLUCOSE; Start 03/01/16 at 02: 00 Dextrose (D50w Syringe) 25 ml Q15M PRN IV DECREASED GLUCOSE; Start 03/01/16 at 02:00 Dextrose (D50w Syringe) 50 ml Q15M PRN IV DECREASED GLUCOSE; Start 03/01/16 at 02:00 Glucagon (Glucagen) 1 mg Q15M PRN IM DECREASED GLUCOSE; Start 03/01/16 at 02: 00 Glucose (Glutose) 15 gm Q15M PRN BUCCAL DECREASED GLUCOSE; Start 03/01/16 at 02:00 Diagnostic Test (Pha) (Accucheck) 1 ea 02 XX Last administered on 03/13/16at 02 :00; Admin Dose 1 EA; Start 03/02/16 at 02:00 Bisacodyl (Dulcolax Supp) 10 mg DAILY PRN [place] CONSTIPATION Last administered on 03/08/16at 23:47; Admin Dose 10 MG; Start 03/03/16 at 11:30 Clotrimazole (Lotrimin Cr) 1 applic BID TOP Last administered on 03/12/16at 22: 35; Admin Dose 1 APPLIC; Start 03/03/16 at 13:30 Insulin Glargine (Lantus) 40 unit QHS SC Last administered on 03/12/16at 22:40 ; Admin Dose 40 UNIT; Start 03/04/16 at 21:00 Docusate Sodium (Colace) 100 mg BID PO Last administered on 03/12/16at 22:33; Admin Dose 100 MG; Start 03/05/16 at 10:30 Magnesium Hydroxide 30 ml 30 ml DAILY PRN PO CONSTIPATION Last administered on 03/08/16at 12:37; Admin Dose 30 ML; Start 03/05/16 at 10:30 Sodium Chloride (NS) 1,000 ml @ 75 mls/hr [id number] IV Last administered on at 15:20; Admin Dose 75 MLS/HR; Start 03/06/16 at 14:30 Lactulose (Enulose) 20 gm Q8 PO Last administered on 03/13/16at 05:28; Admin Dose 20 GM; Start 03/07/16 at 17:00 Sodium Chloride (Deep Sea) 1 spray Q4H PRN NASAL NASAL CONGESTION; Start 03/07 at 17:30 Ondansetron HCl 4 mg 4 mg Q4H PRN IV NAUSEA AND/OR VOMITING; Start 03/08/16 at 23:30 Levofloxacin/ Dextrose (Levaquin 250 Mg/ D5W 50 ml (Pmx)) 50 ml @ 50 mls/hr Q48H IVPB Last administered on 03/13/16 05:32; Admin Dose 50 MLS/HR; Start 03/11/16 at 06:00 Pantoprazole (Protonix Iv) 40 mg BID@06,18 IV Last administered on 03/13/16at 05:32; Admin Dose 40 MG; Start 03/10/16 at 06:00 Magnesium Citrate (Citroma) 300 ml DAILY PO Last administered on 03/10/16at 12: 30; Admin Dose 300 ML; Start 03/10/16 at 10:13 Fentanyl (Duragesic 75 Mcg/Hr Patch) 1 patch Q72H TRANSDERM Last administered on 03/11/16at 09:00; Admin Dose 1 PATCH; Start 03/11/16 at 09:00 Polyethylene Glycol (Miralax) 17 gm BID PO Last administered on 03/12/16at 22: 35; Admin Dose 17 GM; Start 03/12/16 at 11:30 Gabapentin (Neurontin) 300 mg Q8 GTB Last administered on 03/13/16at 05:28; Admin Dose 300 MG; Start 03/13/16 at 06:00 Lorazepam (Ativan) 0.5 mg HS PRN PO AGITATION/ANXIETY; Start 03/12/16 at 23:00 Methylprednisolone Sodium Succinate (Solu-Medrol) 30 mg DAILY IV ; Start at 09:30 Procedures Procedures PROCEDURE: XR Abdomen. CLINICAL INDICATION: Abdominal pain TECHNIQUE: AP abdomen x-ray. COMPARISON: 03/09/2016 FINDINGS: The bowel gas pattern is normal. The colon is fecal filled. There is no evidence of obstruction. There are no abnormal calcifications overlying the urinary tracts. The patient is status post kyphoplasty of the L3 vertebral body. RPTAT: AA IMPRESSION: Fecal filled colon. PROCEDURE: XR Chest. CLINICAL INDICATION: Chest pain TECHNIQUE: Single frontal view of the chest was obtained COMPARISON: 03/09/2016 FINDINGS: The heart is enlarged. The thoracic aorta is calcified. There are bibasilar atelectatic changes. There is a small left pleural effusion. There are chronic interstitial changes throughout the lungs. RPTAT: AA IMPRESSION: Mild cardiomegaly. Calcified aorta consistent with atherosclerotic disease. Bibasilar atelectatic changes and a small left pleural effusion. Chronic interstitial changes throughout the lungs. No focal consolidation. AISHA TINEO Mar 13, 2016 10:38
[2016-03-13 10:56] LABS: LYMPHOCYTES # 0.2 10^3/ul (0.8-2.9); MONOCYTE # 0.6 10^3/ul (0.3-0.9); NEUTROPHIL # 19.4 10^3/ul (1.6-7.5)
[2016-03-13] MEDS: MYCOPHENOLATE 250 MG CAP PO SCH ×2 (11:04→20:09)
[2016-03-13] MEDS: DOCUSATE SODIUM 100 MG CAP PO SCH ×2 (11:06→20:06)
[2016-03-13] MEDS: CLOTRIMAZOLE 1% 30 GM CR TOP SCH ×2 (11:07→20:09)
--- NOTE | 2016-03-13 12:49 | CONS ---
Date/Time of Note Date/Time of Note DATE: 03/13/16 TIME: 12:47 Assessment/Plan Assessment/Plan Chief Complaint/Hosp Course - Acute Kidney Injury - Chronic Kidney Disease ( DM nephropathy + HTN Nephrosclerosis ) - Anemia - Pulmonary disease / COPD - Pemphigoid Dz ( Immunosuppressed ) - Hypertension - Acidosis PLAN: JUAN secondary to ATN & Decrease renal Perfusion No Proteinuria on the UA ? Acute Interstitial Nephritis + Underlying renal disease due to poorly controlled DM & HTN Improving renal function Creatinine down Electrolytes stable Not acidotic Continue Abx per ID Problems: Consultation Date/Type/Reason Admit Date/Time Feb 29, 2016 at 18:54 Initial Consult Date 03/08/16 Type of Consultation: NEPHROLOGY Reason for Consultation Acute Kidney Injury 24 HR Interval Summary Constitutional: no complaints Exam/Review of Systems Vital Signs Vitals Vital Signs Date Time Temp Pulse Resp B/P Pulse Ox O2 Delivery O2 Flow Rate FiO2 03/13/16 12:41 120 03/13/16 12:09 Nasal Cannula 2.0 03/13/16 11:29 98.3 20 149/65 95 Intake and Output 03/12/16 03/12/16 03/13/16 15:00 23:00 07:00 Intake Total 1300 ml 1150 ml Output Total 1200 ml 900 ml Balance 100 ml 250 ml Exam Constitutional: alert Psych: no complaints Head: normocephalic Eyes: nl conjunctiva Neck: jvd Respiratory: crackles/rales Cardiovascular: regular rate and rhythm, systolic murmur Gastrointestinal: soft Results Result Diagram: 03/13/16 0600 03/13/16 0600 Results 24 hrs Laboratory Tests Test 03/12/16 18:04 03/12/16 22:37 03/13/16 06:00 03/13/16 09:00 Bedside Glucose 308 H 182 115 Anion Gap 16 Band Neutrophils % 2.0 Blood Morphology Comment Blood Urea Nitrogen 96 H Calcium Level 8.4 Carbon Dioxide Level 27 Chloride Level 107 Creatinine 1.83 H Differential Comment MANUAL DIFF Glucose Level 125 # Hematocrit 25.9 L Hemoglobin 8.3 L Lymphocytes # 0.2 L Lymphocytes % 1.0 L Magnesium Level 3.6 H Mean Corpuscular Hemoglobin 26.2 L Mean Corpuscular Hemoglobin Concent 32.1 Mean Corpuscular Volume 81.6 L Mean Platelet Volume 7.8 Monocytes # 0.6 Monocytes % 3.0 Neutrophils # 19.4 H Neutrophils % 94.0 H Nucleated Red Blood Cells # Nucleated Red Blood Cells % Phosphorus Level 4.9 Platelet Count 303 Potassium Level 4.0 Red Blood Count 3.18 L Red Cell Distribution Width 15.9 H Sodium Level 146 H White Blood Count 20.6 #H Test 03/13/16 11:06 Lactic Acid Level 1.7 Medications Medications Current Medications Brimonidine Tartrate (Alphagan 0.2%) 1 drop Q8 BOTH EYES Last administered on 03/13/16 05:32; Admin Dose 1 DROP; Start 03/01/16 at 06:00 Clonidine (Catapres) 0.2 mg TID PO Last administered on 03/13/16 09:00; Admin Dose 0.2 MG; Start 03/01/16 at 09:00 Latanoprost (Xalatan) 1 drop QHS BOTH EYES Last administered on 03/12/16 21: 00; Admin Dose 1 DROP; Start 03/01/16 at 21:00 Mycophenolate Mofetil (Cellcept) 500 mg BID PO Last administered on 03/13/16 11:04; Admin Dose 500 MG; Start 03/01/16 at 09:00 Acetaminophen (Tylenol Tab) 650 mg Q4H PRN PO pain/fever Last administered on 03/08/16 12:49; Admin Dose 650 MG; Start 03/01/16 at 01:00 Ondansetron HCl (Zofran Inj) 4 mg Q4H PRN IV nausea Last administered on 02:23; Admin Dose 4 MG; Start 03/01/16 at 01:00 Morphine Sulfate (morphine) 2 mg Q2H PRN IV pain Last administered on at 11:42; Admin Dose 2 MG; Start 03/01/16 at 01:00 Hydralazine HCl (Apresoline) 25 mg Q6H PRN PO sbp>160; Start 03/01/16 at 01:00 Diltiazem HCl (Cardizem) 30 mg Q6H PO Last administered on 03/13/16 11:05; Admin Dose 30 MG; Start 03/01/16 at 02:00 Miscellaneous Information 1 ea NOTE XX ; Start 03/01/16 at 02:00 Glucose (Glutose) 15 gm Q15M PRN PO DECREASED GLUCOSE; Start 03/01/16 at 02:00 Glucose (Glutose) 22.5 gm Q15M PRN PO DECREASED GLUCOSE; Start 03/01/16 at 02: 00 Dextrose (D50w Syringe) 25 ml Q15M PRN IV DECREASED GLUCOSE; Start 03/01/16 at 02:00 Dextrose (D50w Syringe) 50 ml Q15M PRN IV DECREASED GLUCOSE; Start 03/01/16 at 02:00 Glucagon (Glucagen) 1 mg Q15M PRN IM DECREASED GLUCOSE; Start 03/01/16 at 02: 00 Glucose (Glutose) 15 gm Q15M PRN BUCCAL DECREASED GLUCOSE; Start 03/01/16 at 02:00 Diagnostic Test (Pha) (Accucheck) 1 ea 02 XX Last administered on 03/13/16at 02 :00; Admin Dose 1 EA; Start 03/02/16 at 02:00 Bisacodyl (Dulcolax Supp) 10 mg DAILY PRN [place] CONSTIPATION Last administered on 03/08/16at 23:47; Admin Dose 10 MG; Start 03/03/16 at 11:30 Clotrimazole (Lotrimin Cr) 1 applic BID TOP Last administered on 03/13/16at 11: 07; Admin Dose 1 APPLIC; Start 03/03/16 at 13:30 Insulin Glargine (Lantus) 40 unit QHS SC Last administered on 03/12/16at 22:40 ; Admin Dose 40 UNIT; Start 03/04/16 at 21:00 Docusate Sodium (Colace) 100 mg BID PO Last administered on 03/13/16at 11:06; Admin Dose 100 MG; Start 03/05/16 at 10:30 Magnesium Hydroxide 30 ml 30 ml DAILY PRN PO CONSTIPATION Last administered on 03/08/16at 12:37; Admin Dose 30 ML; Start 03/05/16 at 10:30 Sodium Chloride (NS) 1,000 ml @ 75 mls/hr [id number] IV Last administered on at 15:20; Admin Dose 75 MLS/HR; Start 03/06/16 at 14:30 Lactulose (Enulose) 20 gm Q8 PO Last administered on 03/13/16at 05:28; Admin Dose 20 GM; Start 03/07/16 at 17:00 Sodium Chloride (Deep Sea) 1 spray Q4H PRN NASAL NASAL CONGESTION; Start 03/07 at 17:30 Ondansetron HCl 4 mg 4 mg Q4H PRN IV NAUSEA AND/OR VOMITING; Start 03/08/16 at 23:30 Levofloxacin/ Dextrose (Levaquin 250 Mg/ D5W 50 ml (Pmx)) 50 ml @ 50 mls/hr Q48H IVPB Last administered on 03/13/16at 05:32; Admin Dose 50 MLS/HR; Start 03/11/16 at 06:00 Pantoprazole (Protonix Iv) 40 mg BID@06,18 IV Last administered on 03/13/16at 05:32; Admin Dose 40 MG; Start 03/10/16 at 06:00 Magnesium Citrate (Citroma) 300 ml DAILY PO Last administered on 03/10/16at 12: 30; Admin Dose 300 ML; Start 03/10/16 at 10:13 Fentanyl (Duragesic 75 Mcg/Hr Patch) 1 patch Q72H TRANSDERM Last administered on 03/11/16at 09:00; Admin Dose 1 PATCH; Start 03/11/16 at 09:00 Polyethylene Glycol (Miralax) 17 gm BID PO Last administered on 03/12/16at 22: 35; Admin Dose 17 GM; Start 03/12/16 at 11:30 Gabapentin (Neurontin) 300 mg Q8 GTB Last administered on 03/13/16at 05:28; Admin Dose 300 MG; Start 03/13/16 at 06:00 Lorazepam (Ativan) 0.5 mg HS PRN PO AGITATION/ANXIETY; Start 03/12/16 at 23:00 Methylprednisolone Sodium Succinate (Solu-Medrol) 30 mg DAILY IV ; Start at 09:30 KAMERON EUBANKS MD Mar 13, 2016 12:49
[2016-03-13] MEDS: METHYLPREDNISOLONE 40 MG INJ IV SCH (13:26)
--- NOTE | 2016-03-13 14:06 | CONS ---
Date/Time of Note Date/Time of Note DATE: 03/13/16 TIME: 14:02 Assessment/Plan Assessment/Plan Additional Assessment/Plan - Constipation, patient noncompliant will bowel prep, refused NG tube insertion - Chronic Kidney Disease ( DM nephropathy + HTN Nephrosclerosis ) - Anemia - Pulmonary disease / COPD - Pemphigoid Dz ( Immunosuppressed ) - Hypertension - Acidosis Recommendation: - Start Relistor and increase frequency of lactulose to every 6 hrs - May need need colonoscopy with biopsies to evaluate, but she needs to be able to complete bowel prep - motility problem also suggested by her poorly controlled DM - continue other supportive care - Further recommendations depend on clinical course Patient seen in collaboration with Dr. Zuniga Consultation Date/Type/Reason Admit Date/Time Feb 29, 2016 at 18:54 Initial Consult Date 03/08/16 Type of Consultation: NEPHROLOGY 24 HR Interval Summary Free Text/Dictation Patient refused NG tube insertion We will start Relistor 12mg QD x 3 doses and lactulose every 6 hours Patient at bedside very agitated Abdominal x-ray notes fecal filled colon Exam/Review of Systems Vital Signs Vitals Vital Signs Date Time Temp Pulse Resp B/P Pulse Ox O2 Delivery O2 Flow Rate FiO2 03/13/16 12:41 120 03/13/16 12:09 Nasal Cannula 2.0 03/13/16 11:29 98.3 20 149/65 95 Intake and Output 03/12/16 03/12/16 03/13/16 15:00 23:00 07:00 Intake Total 1300 ml 1150 ml Output Total 1200 ml 900 ml Balance 100 ml 250 ml Exam Constitutional: Obese Head: atraumatic, normocephalic Eyes: EOMI, nl conjunctiva, nl lids, nl sclera ENMT: mucosa pink and moist, nl external ears & nose, nl lips & teeth, nl nasal mucosa & septum Neck: non-tender, supple Respiratory: labored breathing, normal air movement, wheezing Cardiovascular: nl pulses, regular rate and rhythm Gastrointestinal: bowel sounds, non-tender, soft Results Result Diagram: 03/13/16 0600 03/13/16 0600 Results 24 hrs Laboratory Tests Test 03/12/16 18:04 03/12/16 22:37 03/13/16 06:00 03/13/16 09:00 Bedside Glucose 308 H 182 115 Anion Gap 16 Band Neutrophils % 2.0 Blood Morphology Comment Blood Urea Nitrogen 96 H Calcium Level 8.4 Carbon Dioxide Level 27 Chloride Level 107 Creatinine 1.83 H Differential Comment MANUAL DIFF Glucose Level 125 # Hematocrit 25.9 L Hemoglobin 8.3 L Lymphocytes # 0.2 L Lymphocytes % 1.0 L Magnesium Level 3.6 H Mean Corpuscular Hemoglobin 26.2 L Mean Corpuscular Hemoglobin Concent 32.1 Mean Corpuscular Volume 81.6 L Mean Platelet Volume 7.8 Monocytes # 0.6 Monocytes % 3.0 Neutrophils # 19.4 H Neutrophils % 94.0 H Nucleated Red Blood Cells # Nucleated Red Blood Cells % Phosphorus Level 4.9 Platelet Count 303 Potassium Level 4.0 Red Blood Count 3.18 L Red Cell Distribution Width 15.9 H Sodium Level 146 H White Blood Count 20.6 #H Test 03/13/16 11:06 03/13/16 12:28 03/13/16 13:33 Lactic Acid Level 1.7 Bedside Glucose 44 *L 69 L Medications Medications Current Medications Brimonidine Tartrate (Alphagan 0.2%) 1 drop Q8 BOTH EYES Last administered on 03/13/16at 05:32; Admin Dose 1 DROP; Start 03/01/16 at 06:00 Clonidine (Catapres) 0.2 mg TID PO Last administered on 03/13/16at 09:00; Admin Dose 0.2 MG; Start 03/01/16 at 09:00 Latanoprost (Xalatan) 1 drop QHS BOTH EYES Last administered on 03/12/16at 21: 00; Admin Dose 1 DROP; Start 03/01/16 at 21:00 Mycophenolate Mofetil (Cellcept) 500 mg BID PO Last administered on 03/13/16at 11:04; Admin Dose 500 MG; Start 03/01/16 at 09:00 Acetaminophen (Tylenol Tab) 650 mg Q4H PRN PO pain/fever Last administered on 03/08/16at 12:49; Admin Dose 650 MG; Start 03/01/16 at 01:00 Ondansetron HCl (Zofran Inj) 4 mg Q4H PRN IV nausea Last administered on at 02:23; Admin Dose 4 MG; Start 03/01/16 at 01:00 Morphine Sulfate (morphine) 2 mg Q2H PRN IV pain Last administered on at 11:42; Admin Dose 2 MG; Start 03/01/16 at 01:00 Hydralazine HCl (Apresoline) 25 mg Q6H PRN PO sbp>160; Start 03/01/16 at 01:00 Diltiazem HCl (Cardizem) 30 mg Q6H PO Last administered on 03/13/16at 11:05; Admin Dose 30 MG; Start 03/01/16 at 02:00 Miscellaneous Information 1 ea NOTE XX ; Start 03/01/16 at 02:00 Glucose (Glutose) 15 gm Q15M PRN PO DECREASED GLUCOSE; Start 03/01/16 at 02:00 Glucose (Glutose) 22.5 gm Q15M PRN PO DECREASED GLUCOSE; Start 03/01/16 at 02: 00 Dextrose (D50w Syringe) 25 ml Q15M PRN IV DECREASED GLUCOSE; Start 03/01/16 at 02:00 Dextrose (D50w Syringe) 50 ml Q15M PRN IV DECREASED GLUCOSE; Start 03/01/16 at 02:00 Glucagon (Glucagen) 1 mg Q15M PRN IM DECREASED GLUCOSE; Start 03/01/16 at 02: 00 Glucose (Glutose) 15 gm Q15M PRN BUCCAL DECREASED GLUCOSE; Start 03/01/16 at 02:00 Diagnostic Test (Pha) (Accucheck) 1 ea 02 XX Last administered on 03/13/16at 02 :00; Admin Dose 1 EA; Start 03/02/16 at 02:00 Bisacodyl (Dulcolax Supp) 10 mg DAILY PRN [place] CONSTIPATION Last administered on 03/08/16at 23:47; Admin Dose 10 MG; Start 03/03/16 at 11:30 Clotrimazole (Lotrimin Cr) 1 applic BID TOP Last administered on 03/13/16at 11: 07; Admin Dose 1 APPLIC; Start 03/03/16 at 13:30 Insulin Glargine (Lantus) 40 unit QHS SC Last administered on 03/12/16at 22:40 ; Admin Dose 40 UNIT; Start 03/04/16 at 21:00 Docusate Sodium (Colace) 100 mg BID PO Last administered on 03/13/16at 11:06; Admin Dose 100 MG; Start 03/05/16 at 10:30 Magnesium Hydroxide 30 ml 30 ml DAILY PRN PO CONSTIPATION Last administered on 03/08/16at 12:37; Admin Dose 30 ML; Start 03/05/16 at 10:30 Sodium Chloride (NS) 1,000 ml @ 75 mls/hr [id number] IV Last administered on at 15:20; Admin Dose 75 MLS/HR; Start 03/06/16 at 14:30 Lactulose (Enulose) 20 gm Q8 PO Last administered on 03/13/16at 13:24; Admin Dose 20 GM; Start 03/07/16 at 17:00 Sodium Chloride (Deep Sea) 1 spray Q4H PRN NASAL NASAL CONGESTION; Start 03/07 at 17:30 Ondansetron HCl 4 mg 4 mg Q4H PRN IV NAUSEA AND/OR VOMITING; Start 03/08/16 at 23:30 Levofloxacin/ Dextrose (Levaquin 250 Mg/ D5W 50 ml (Pmx)) 50 ml @ 50 mls/hr Q48H IVPB Last administered on 03/13/16at 05:32; Admin Dose 50 MLS/HR; Start 03/11/16 at 06:00 Pantoprazole (Protonix Iv) 40 mg BID@06,18 IV Last administered on 03/13/16at 05:32; Admin Dose 40 MG; Start 03/10/16 at 06:00 Magnesium Citrate (Citroma) 300 ml DAILY PO Last administered on 03/10/16at 12: 30; Admin Dose 300 ML; Start 03/10/16 at 10:13 Fentanyl (Duragesic 75 Mcg/Hr Patch) 1 patch Q72H TRANSDERM Last administered on 03/11/16at 09:00; Admin Dose 1 PATCH; Start 03/11/16 at 09:00 Polyethylene Glycol (Miralax) 17 gm BID PO Last administered on 03/12/16at 22: 35; Admin Dose 17 GM; Start 03/12/16 at 11:30 Gabapentin (Neurontin) 300 mg Q8 GTB Last administered on 03/13/16at 05:28; Admin Dose 300 MG; Start 03/13/16 at 06:00 Lorazepam (Ativan) 0.5 mg HS PRN PO AGITATION/ANXIETY; Start 03/12/16 at 23:00 Methylprednisolone Sodium Succinate (Solu-Medrol) 30 mg DAILY IV ; Start at 09:30 TR AMES Mar 13, 2016 14:06
--- NOTE | 2016-03-13 16:04 | PN ---
DATE: 03/13/2016 SUBJECTIVE: No acute events overnight. The patient is awake, sounds congested and feels like she h as secretions in her throat that she cannot cough up. She is in no distress on a nasal cannula, sat urating 96%. WBC today 20.6 with H and H of 8.3 and 25.9, platelets 303, neutrophils 94, BUN 96, creatinine 1.83. ANTIMICROBIALS: The patient remains on: 1. Levaquin. 2. Steroids taper. PHYSICAL EXAMINATION: GENERAL: This is a morbidly obese, fragile, elderly woman who is lying comfortably in bed. HEENT: Head atraumatic, normocephalic. Sclerae anicteric. Buccal mucosa dry. NECK: Supple. CHEST: Rise symmetrical. Breath sounds with crackles on auscultation, mostly in the upper lobes. ABDOMEN: Distended, semi-soft. Bowel tones hypoactive. EXTREMITIES: Without cyanosis with bilateral trace edema. ASSESSMENT: 1. Persistent leukocytosis, likely a combination of steroids, possibly ongoing aspiration given the patient's inability to clear up-secretions. 2. Severe constipation, gastroenterology on case. Nasogastric tube was not placed secondary to the patient's refusal. 3. Acute respiratory failure, improving. 4. Paroxysmal atrial fibrillation. 5. Acute on chronic kidney disease. Nephrology on case. Kidney function slowly improving. 6. Anemia. 7. Diabetes. 8. History of pemphigoid disease. The patient had been on Bactrim and steroids. PLAN: The patient remains clinically and hemodynamically stable. Chest x-ray this morning revealed mild cardiomegaly, no focal consolidation. She had been on Levaquin for 12 days. She does not spi ke fevers; however, her leukocytosis is . She also has bandemia this morning with neutrophils going up to 94,000. We will discuss with Dr. Spring the option of changing antibiotics to intravenous meropenem for possibility of ongoing aspiration. Dictated By: LEÓN PAK INSURANCE SALES ASSISTANT for [employer] Conf#: [id number] DID#: [id number]
[2016-03-13] MEDS: MEROPENEM 500 MG in SOD CHLORIDE 0.9% 100 ML IVPB SCH (17:00)
[2016-03-13] MEDS: METHYLNALTREXONE 12 MG/0.6 ML VIAL SC SCH (17:38)
[2016-03-13] MEDS: LATANOPROST 0.005% 2.5 ML OPH BOTH EYES SCH (20:09)
[2016-03-13] MEDS: INSULIN GLARGINE [LANtus] 3 ML PEN SC SCH (20:10)
[2016-03-14] VITALS (19 sets, daily range): BP systolic 113–154; BP diastolic 55–81; PULSE 83–163; RESP 16–22
[2016-03-14] MEDS: DILTIAZEM 30 MG TAB PO SCH ×4 (02:00→20:00)
[2016-03-14] MEDS: ACCUCHECK AT 2AM (Patients on SS coverage) XX SCH (02:00)
[2016-03-14] MEDS: ALBUTEROL/IPRATROPIUM (NEB) 3 ML AMP HHN SCH ×4 (02:20→20:08)
[2016-03-14] MEDS: LACTULOSE 30ML CUP PO SCH ×5 (05:30→23:47)
[2016-03-14] MEDS: GABAPENTIN 300 MG CAP GTB SCH ×3 (05:30→21:42)
[2016-03-14] MEDS: PANTOPRAZOLE 40 MG INJ IV SCH ×2 (05:30→17:47)
[2016-03-14] MEDS: BRIMONIDINE 0.2% 5 ML BTL BOTH EYES SCH ×3 (05:30→21:04)
[2016-03-14 06:50] LABS: HEMATOCRIT 24.2 % (37.0-47.0); HEMOGLOBIN 8.1 g/dl (12.0-16.0); MEAN CORPUSCULAR HGB CONC 33.5 g/dl (32.0-37.0); MEAN CORPUSCULAR VOLUME 80.8 fl (82.0-101.0); MEAN PLATELET VOLUME 8.2 fl (7.4-10.4); PLATELET COUNT 274 10^3/UL (140-440); RED CELL DISTRIBUTION WIDTH 15.5 % (11.5-14.5); UNCORRECTED WBC 25.9 10^3/ul (4.8-10.8); WHITE BLOOD COUNT 25.9 10^3/ul (4.8-10.8)
[2016-03-14 06:53] LABS: ALBUMIN 2.9 g/dl (3.3-4.9)
[2016-03-14 06:54] LABS: POTASSIUM 4.3 mmol/L (3.5-5.1)
[2016-03-14 06:56] LABS: ALBUMIN/GLOBULIN RATIO 1.26; BILIRUBIN,INDIRECT 0.2 mg/dl (0-1.1); BILIRUBIN,TOTAL 0.2 mg/dl (0.2-1.3); CREATININE 1.36 mg/dl (0.44-1.00); MAGNESIUM 3.5 mg/dl (1.7-2.5); PHOSPHORUS 4.2 mg/dl (2.5-4.9); TOTAL PROTEIN 5.2 g/dl (6.1-8.1)
[2016-03-14 06:57] LABS: CALCIUM 8.3 mg/dl (8.4-10.2)
[2016-03-14 07:04] LABS: CONDITION 1; LH ANALYZER COMMENTS 1
[2016-03-14] MEDS: INSULIN ASPART [NOVOLOG] 3 ML PEN SC SCH ×7 (08:04→21:00)
[2016-03-14 08:29] LABS: ADD UMIC YES; URINE BILIRUBIN (Dip) NEGATIVE (NEGATIVE); URINE BLOOD (Dip) 1+ (NEGATIVE); URINE COLOR LT. YELLOW (YELLOW); URINE GLUCOSE (Dip) NEGATIVE (NEGATIVE); URINE KETONES (Dip) NEGATIVE (NEGATIVE); URINE LEUKOCYTE ESTERASE (Dip) 1+ (NEGATIVE); URINE NITRITE (Dip) POSITIVE (NEGATIVE); URINE TOTAL PROTEIN (Dip) NEGATIVE (NEGATIVE); URINE UROBILINOGEN (Dip) 0.2 E.U./dL (0.1-1.0)
[2016-03-14] MEDS: METHYLPREDNISOLONE 40 MG INJ IV SCH (08:41)
[2016-03-14] MEDS: MYCOPHENOLATE 250 MG CAP PO SCH ×2 (08:44→21:00)
[2016-03-14] MEDS: DOCUSATE SODIUM 100 MG CAP PO SCH ×2 (08:45→21:00)
[2016-03-14] MEDS: CLOTRIMAZOLE 1% 30 GM CR TOP SCH ×2 (08:47→21:04)
[2016-03-14] MEDS: MEROPENEM 500 MG in SOD CHLORIDE 0.9% 100 ML IVPB SCH ×2 (08:54→20:58)
[2016-03-14] MEDS: METHYLNALTREXONE 12 MG/0.6 ML VIAL SC SCH (08:54)
[2016-03-14] MEDS: SOD CHLORIDE 0.9% 1,000 ML IV SCH ×2 (08:55→21:51)
[2016-03-14 09:23] LABS: BACTERIA,URINE MODERATE; SQUAMOUS EPITHELIAL CELL,UR OCCASIONAL
[2016-03-14 09:24] LABS: MUCUS,URINE FEW
[2016-03-14 09:27] LABS: LYMPHOCYTES # 0.5 10^3/ul (0.8-2.9); MONOCYTE # 0.8 10^3/ul (0.3-0.9); NEUTROPHIL # 24.6 10^3/ul (1.6-7.5)
[2016-03-14] MEDS: FENTAnyl PATCH 75 MCG/HR TRANSDERM SCH (10:31)
[2016-03-14] MEDS ORDERED: FUROSEMIDE 20 MG INJ IV ONE ×2 (14:00→15:30)
[2016-03-14] MEDS ORDERED: FUROSEMIDE 20 MG INJ ONE (14:03)
--- NOTE | 2016-03-14 14:42 | CONS ---
Date/Time of Note Date/Time of Note DATE: 03/14/16 TIME: 14:38 Consult Date/Type/Reason Admit Date/Time Feb 29, 2016 at 18:54 Initial Consult Date 03/08/16 Type of Consultation: ID Subjective awake, moaning, audible gargling with secretions, no fevers Objective Vital Signs Date Time Temp Pulse Resp B/P Pulse Ox O2 Delivery O2 Flow Rate FiO2 03/14/16 12:35 136 03/14/16 12:30 98.1 22 134/80 96 Nasal Cannula 4.0 Intake and Output 03/13/16 03/13/16 03/14/16 15:00 23:00 07:00 Intake Total 1260 ml 1100 ml Output Total 1100 ml 500 ml Balance 160 ml 600 ml Results/Medications Result Diagram: 03/14/16 0617 03/14/16 0617 Results 24 hrs Laboratory Tests Test 03/13/16 14:46 03/13/16 16:47 03/13/16 20:03 03/14/16 05:41 Bedside Glucose 71 73 83 Stool Occult Blood POSITIVE Test 03/14/16 05:42 03/14/16 06:17 03/14/16 07:59 03/14/16 12:11 Urine Bacteria MODERATE Urine Bilirubin NEGATIVE Urine Clarity CLEAR Urine Color LT. YELLOW Urine Glucose NEGATIVE Urine Hemoglobin 1+ H Urine Ketones NEGATIVE Urine Leukocyte Esterase 1+ H Urine Microscopic RBC 2-5 Urine Microscopic WBC 2-5 Urine Mucus FEW Urine Nitrite POSITIVE H Urine Specific Portal 1.020 Urine Squamous Epithelial Cells OCCASIONAL Urine Total Protein NEGATIVE Urine Urobilinogen 0.2 E.U./dL Urine pH 5.5 Alanine Aminotransferase (ALT/SGPT) 29 Albumin 2.9 L Albumin/Globulin Ratio 1.26 Alkaline Phosphatase 48 Anion Gap 17 H Aspartate Amino Transf (AST/SGOT) 18 Blood Morphology Comment Blood Urea Nitrogen 84 H Calcium Level 8.3 L Carbon Dioxide Level 26 Chloride Level 109 Creatinine 1.36 H Direct Bilirubin 0.00 Globulin 2.30 Glucose Level 144 Hematocrit 24.2 L Hemoglobin 8.1 L Indirect Bilirubin 0.2 Lactic Acid Level 0.8 Lymphocytes # 0.5 L Lymphocytes % 2.0 L Magnesium Level 3.5 H Mean Corpuscular Hemoglobin 27.0 L Mean Corpuscular Hemoglobin Concent 33.5 Mean Corpuscular Volume 80.8 L Mean Platelet Volume 8.2 Monocytes # 0.8 Monocytes % 3.0 Neutrophils # 24.6 H Neutrophils % 95.0 H Phosphorus Level 4.2 Platelet Count 274 Potassium Level 4.3 Red Blood Count 3.00 L Red Cell Distribution Width 15.5 H Sodium Level 148 H Total Bilirubin 0.2 Total Protein 5.2 L White Blood Count 25.9 #H Bedside Glucose 168 225 H Medications Current Medications Brimonidine Tartrate (Alphagan 0.2%) 1 drop Q8 BOTH EYES Last administered on 03/14/16 05:30; Admin Dose 1 DROP; Start 03/01/16 at 06:00 Clonidine (Catapres) 0.2 mg TID PO Last administered on 03/14/16 08:44; Admin Dose 0.2 MG; Start 03/01/16 at 09:00 Latanoprost (Xalatan) 1 drop QHS BOTH EYES Last administered on 03/13/16 20: 09; Admin Dose 1 DROP; Start 03/01/16 at 21:00 Mycophenolate Mofetil (Cellcept) 500 mg BID PO Last administered on 03/14/16 08:44; Admin Dose 500 MG; Start 03/01/16 at 09:00 Acetaminophen (Tylenol Tab) 650 mg Q4H PRN PO pain/fever Last administered on 03/08/16 12:49; Admin Dose 650 MG; Start 03/01/16 at 01:00 Ondansetron HCl (Zofran Inj) 4 mg Q4H PRN IV nausea Last administered on 02:23; Admin Dose 4 MG; Start 03/01/16 at 01:00 Morphine Sulfate (morphine) 2 mg Q2H PRN IV pain Last administered on 11:42; Admin Dose 2 MG; Start 03/01/16 at 01:00 Hydralazine HCl (Apresoline) 25 mg Q6H PRN PO sbp>160; Start 03/01/16 at 01:00 Diltiazem HCl (Cardizem) 30 mg Q6H PO Last administered on 03/14/16 05:29; Admin Dose 30 MG; Start 03/01/16 at 02:00 Miscellaneous Information 1 ea NOTE XX ; Start 03/01/16 at 02:00 Glucose (Glutose) 15 gm Q15M PRN PO DECREASED GLUCOSE; Start 03/01/16 at 02:00 Glucose (Glutose) 22.5 gm Q15M PRN PO DECREASED GLUCOSE; Start 03/01/16 at 02: 00 Dextrose (D50w Syringe) 25 ml Q15M PRN IV DECREASED GLUCOSE Last administered on 03/13/16at 13:36; Admin Dose 25 ML; Start 03/01/16 at 02:00 Dextrose (D50w Syringe) 50 ml Q15M PRN IV DECREASED GLUCOSE Last administered on 03/13/16at 12:30; Admin Dose 50 ML; Start 03/01/16 at 02:00 Glucagon (Glucagen) 1 mg Q15M PRN IM DECREASED GLUCOSE; Start 03/01/16 at 02: 00 Glucose (Glutose) 15 gm Q15M PRN BUCCAL DECREASED GLUCOSE; Start 03/01/16 at 02:00 Diagnostic Test (Pha) (Accucheck) 1 ea 02 XX Last administered on 03/13/16at 02 :00; Admin Dose 1 EA; Start 03/02/16 at 02:00 Bisacodyl (Dulcolax Supp) 10 mg DAILY PRN [place] CONSTIPATION Last administered on 03/08/16at 23:47; Admin Dose 10 MG; Start 03/03/16 at 11:30 Clotrimazole (Lotrimin Cr) 1 applic BID TOP Last administered on 03/14/16at 08: 47; Admin Dose 1 APPLIC; Start 03/03/16 at 13:30 Insulin Glargine (Lantus) 40 unit QHS SC Last administered on 03/12/16at 22:40 ; Admin Dose 40 UNIT; Start 03/04/16 at 21:00 Docusate Sodium 100 mg 100 mg BID PO Last administered on 03/14/16at 08:45; Admin Dose 100 MG; Start 03/05/16 at 10:30 Sodium Chloride (NS) 1,000 ml @ 75 mls/hr [id number] IV Last administered on at 20:25; Admin Dose 75 MLS/HR; Start 03/06/16 at 14:30 Sodium Chloride (Deep Sea) 1 spray Q4H PRN NASAL NASAL CONGESTION; Start 03/07 at 17:30 Ondansetron HCl (Zofran Inj) 4 mg Q4H PRN IV NAUSEA AND/OR VOMITING; Start at 23:30 Pantoprazole (Protonix Iv) 40 mg BID@06,18 IV Last administered on 03/14/16at 05:30; Admin Dose 40 MG; Start 03/10/16 at 06:00 Fentanyl (Duragesic 75 Mcg/Hr Patch) 1 patch Q72H TRANSDERM Last administered on 03/14/16at 10:31; Admin Dose 1 PATCH; Start 03/11/16 at 09:00 Gabapentin (Neurontin) 300 mg Q8 GTB Last administered on 03/14/16at 05:30; Admin Dose 300 MG; Start 03/13/16 at 06:00 Lorazepam (Ativan) 0.5 mg HS PRN PO AGITATION/ANXIETY; Start 03/12/16 at 23:00 Methylprednisolone Sodium Succinate (Solu-Medrol) 30 mg DAILY IV Last administered on 03/14/16at 08:41; Admin Dose 30 MG; Start 03/13/16 at 09:30 Lactulose (Enulose) 20 gm Q6 PO Last administered on 03/14/16at 12:19; Admin Dose 20 GM; Start 03/13/16 at 18:00 Methylnaltrexone [place] 12 mg 12 mg DAILY SC Last administered on 03/14/16at 08:54; Admin Dose 12 MG; Start 03/13/16 at 14:00; Stop 03/15/16 at 08:00 Meropenem/Sodium Chloride (Merrem/NS) 100 ml @ 200 mls/hr Q12 IVPB Last administered on 03/14/16at 08:54; Admin Dose 200 MLS/HR; Start 03/13/16 at 17: 00 Assessment/Plan Chief Complaint/Hosp Course ANTIMICROBIALS: Merrem, s/p Levaquin PHYSICAL EXAMINATION: GENERAL: This is a morbidly obese, fragile, elderly woman who is awake, moaning , in nad. HEENT: Head atraumatic, normocephalic. Sclerae anicteric. Buccal mucosa dry. NECK: Obese. CHEST: Rise symmetrical. Breath sounds with crackles on auscultation, mostly in the upper lobes. ABDOMEN: Distended, semi-soft. Bowel tones hypoactive. EXTREMITIES: Without cyanosis with bilateral trace edema. ASSESSMENT: 1. Persistent leukocytosis, likely a combination of steroids, possibly ongoing aspiration given the patient's inability to clear up-secretions. 2. Severe constipation, gastroenterology on case. Nasogastric tube was not placed secondary to the patient's refusal. 3. Acute respiratory failure, improving. 4. Paroxysmal atrial fibrillation. 5. Acute on chronic kidney disease. Nephrology on case. Kidney function slowly improving. 6. Anemia. 7. Diabetes. 8. History of pemphigoid disease. The patient had been on Bactrim and steroids. PLAN: Clinically unchanged, looks ill with copious secretions that she is unable to cough up, started on Merrem yesterday for aspiration concern, sputum cx sent, C dif negative. Continue present care, pulmonary toilet, asp precautions, prognosis guarded DW staff Problems: LEÓN PAK NP Mar 14, 2016 14:41
--- NOTE | 2016-03-14 16:05 | CONS ---
Date/Time of Note Date/Time of Note DATE: 03/14/16 TIME: 16:03 Consult Date/Type/Reason Admit Date/Time Feb 29, 2016 at 18:54 Type of Consultation: pulmonary Subjective No shortness of breath this morning requiring deep suctioning. Patient's family had been giving reported to drink. Moderate to large amount of secretions which the patient is having difficulty clearing Objective Vital Signs Date Time Temp Pulse Resp B/P Pulse Ox O2 Delivery O2 Flow Rate FiO2 03/14/16 15:56 97.5 117 19 136/81 100 03/14/16 14:51 Nasal Cannula 6.0 Intake and Output 03/13/16 03/13/16 03/14/16 15:00 23:00 07:00 Intake Total 1260 ml 1100 ml Output Total 1100 ml 500 ml Balance 160 ml 600 ml GENERAL: Frail elderly lady with audible rales and crackles predominantly upper airway noise VITAL SIGNS: per chart NECK: Supple. No JVD or lymphadenopathy. CARDIAC EXAM: S1, S2. No added sounds or murmurs. CHEST: Diminished air entry bilaterally with rales ABDOMEN: Soft, nontender. No guarding or rebound. EXTREMITIES: No cyanosis, clubbing or edema. NEUROLOGIC: Generalized weakness. Results/Medications Result Diagram: 03/14/16 0617 03/14/16 0617 Results 24 hrs Laboratory Tests Test 03/13/16 16:47 03/13/16 20:03 03/14/16 05:41 03/14/16 05:42 Bedside Glucose 73 83 Stool Occult Blood POSITIVE Urine Bacteria MODERATE Urine Bilirubin NEGATIVE Urine Clarity CLEAR Urine Color LT. YELLOW Urine Glucose NEGATIVE Urine Hemoglobin 1+ H Urine Ketones NEGATIVE Urine Leukocyte Esterase 1+ H Urine Microscopic RBC 2-5 Urine Microscopic WBC 2-5 Urine Mucus FEW Urine Nitrite POSITIVE H Urine Specific Iron 1.020 Urine Squamous Epithelial Cells OCCASIONAL Urine Total Protein NEGATIVE Urine Urobilinogen 0.2 E.U./dL Urine pH 5.5 Test 03/14/16 06:17 03/14/16 07:59 03/14/16 12:11 Alanine Aminotransferase (ALT/SGPT) 29 Albumin 2.9 L Albumin/Globulin Ratio 1.26 Alkaline Phosphatase 48 Anion Gap 17 H Aspartate Amino Transf (AST/SGOT) 18 Blood Morphology Comment Blood Urea Nitrogen 84 H Calcium Level 8.3 L Carbon Dioxide Level 26 Chloride Level 109 Creatinine 1.36 H Direct Bilirubin 0.00 Globulin 2.30 Glucose Level 144 Hematocrit 24.2 L Hemoglobin 8.1 L Indirect Bilirubin 0.2 Lactic Acid Level 0.8 Lymphocytes # 0.5 L Lymphocytes % 2.0 L Magnesium Level 3.5 H Mean Corpuscular Hemoglobin 27.0 L Mean Corpuscular Hemoglobin Concent 33.5 Mean Corpuscular Volume 80.8 L Mean Platelet Volume 8.2 Monocytes # 0.8 Monocytes % 3.0 Neutrophils # 24.6 H Neutrophils % 95.0 H Phosphorus Level 4.2 Platelet Count 274 Potassium Level 4.3 Red Blood Count 3.00 L Red Cell Distribution Width 15.5 H Sodium Level 148 H Total Bilirubin 0.2 Total Protein 5.2 L White Blood Count 25.9 #H Bedside Glucose 168 225 H Medications Current Medications Brimonidine Tartrate (Alphagan 0.2%) 1 drop Q8 BOTH EYES Last administered on 03/14/16 15:07; Admin Dose 1 DROP; Start 03/01/16 at 06:00 Clonidine (Catapres) 0.2 mg TID PO Last administered on 03/14/16 14:48; Admin Dose 0.2 MG; Start 03/01/16 at 09:00 Latanoprost (Xalatan) 1 drop QHS BOTH EYES Last administered on 03/13/16 20: 09; Admin Dose 1 DROP; Start 03/01/16 at 21:00 Mycophenolate Mofetil (Cellcept) 500 mg BID PO Last administered on 03/14/16 08:44; Admin Dose 500 MG; Start 03/01/16 at 09:00 Acetaminophen (Tylenol Tab) 650 mg Q4H PRN PO pain/fever Last administered on 03/08/16 12:49; Admin Dose 650 MG; Start 03/01/16 at 01:00 Ondansetron HCl (Zofran Inj) 4 mg Q4H PRN IV nausea Last administered on 02:23; Admin Dose 4 MG; Start 03/01/16 at 01:00 Morphine Sulfate (morphine) 2 mg Q2H PRN IV pain Last administered on 11:42; Admin Dose 2 MG; Start 03/01/16 at 01:00 Hydralazine HCl (Apresoline) 25 mg Q6H PRN PO sbp>160; Start 03/01/16 at 01:00 Diltiazem HCl (Cardizem) 30 mg Q6H PO Last administered on 03/14/16at 14:48; Admin Dose 30 MG; Start 03/01/16 at 02:00 Miscellaneous Information 1 ea NOTE XX ; Start 03/01/16 at 02:00 Glucose (Glutose) 15 gm Q15M PRN PO DECREASED GLUCOSE; Start 03/01/16 at 02:00 Glucose (Glutose) 22.5 gm Q15M PRN PO DECREASED GLUCOSE; Start 03/01/16 at 02: 00 Dextrose (D50w Syringe) 25 ml Q15M PRN IV DECREASED GLUCOSE Last administered on 03/13/16at 13:36; Admin Dose 25 ML; Start 03/01/16 at 02:00 Dextrose (D50w Syringe) 50 ml Q15M PRN IV DECREASED GLUCOSE Last administered on 03/13/16at 12:30; Admin Dose 50 ML; Start 03/01/16 at 02:00 Glucagon (Glucagen) 1 mg Q15M PRN IM DECREASED GLUCOSE; Start 03/01/16 at 02: 00 Glucose (Glutose) 15 gm Q15M PRN BUCCAL DECREASED GLUCOSE; Start 03/01/16 at 02:00 Diagnostic Test (Pha) (Accucheck) 1 ea 02 XX Last administered on 03/13/16at 02 :00; Admin Dose 1 EA; Start 03/02/16 at 02:00 Bisacodyl (Dulcolax Supp) 10 mg DAILY PRN [place] CONSTIPATION Last administered on 03/08/16at 23:47; Admin Dose 10 MG; Start 03/03/16 at 11:30 Clotrimazole (Lotrimin Cr) 1 applic BID TOP Last administered on 03/14/16at 08: 47; Admin Dose 1 APPLIC; Start 03/03/16 at 13:30 Insulin Glargine (Lantus) 40 unit QHS SC Last administered on 03/12/16at 22:40 ; Admin Dose 40 UNIT; Start 03/04/16 at 21:00 Docusate Sodium 100 mg 100 mg BID PO Last administered on 03/14/16at 08:45; Admin Dose 100 MG; Start 03/05/16 at 10:30 Sodium Chloride (NS) 1,000 ml @ 75 mls/hr [id number] IV Last administered on at 20:25; Admin Dose 75 MLS/HR; Start 03/06/16 at 14:30 Sodium Chloride (Deep Sea) 1 spray Q4H PRN NASAL NASAL CONGESTION; Start 03/07 at 17:30 Ondansetron HCl (Zofran Inj) 4 mg Q4H PRN IV NAUSEA AND/OR VOMITING; Start at 23:30 Pantoprazole (Protonix Iv) 40 mg BID@06,18 IV Last administered on 03/14/16at 05:30; Admin Dose 40 MG; Start 03/10/16 at 06:00 Fentanyl (Duragesic 75 Mcg/Hr Patch) 1 patch Q72H TRANSDERM Last administered on 03/14/16at 10:31; Admin Dose 1 PATCH; Start 03/11/16 at 09:00 Gabapentin (Neurontin) 300 mg Q8 GTB Last administered on 03/14/16at 14:46; Admin Dose 300 MG; Start 03/13/16 at 06:00 Lorazepam (Ativan) 0.5 mg HS PRN PO AGITATION/ANXIETY; Start 03/12/16 at 23:00 Methylprednisolone Sodium Succinate (Solu-Medrol) 30 mg DAILY IV Last administered on 03/14/16at 08:41; Admin Dose 30 MG; Start 03/13/16 at 09:30 Lactulose (Enulose) 20 gm Q6 PO Last administered on 03/14/16at 12:19; Admin Dose 20 GM; Start 03/13/16 at 18:00 Methylnaltrexone [place] 12 mg 12 mg DAILY SC Last administered on 03/14/16at 08:54; Admin Dose 12 MG; Start 03/13/16 at 14:00; Stop 03/15/16 at 08:00 Meropenem/Sodium Chloride (Merrem/NS) 100 ml @ 200 mls/hr Q12 IVPB Last administered on 03/14/16at 08:54; Admin Dose 200 MLS/HR; Start 03/13/16 at 17: 00 Assessment/Plan Chief Complaint/Hosp Course IMPRESSION: An 85-year-old female with: 1. Acute hypoxemic respiratory failure. Probable significant aspiration component patient's family have been giving her oral intake 2. Chronic obstructive pulmonary disease exacerbation. 3. Bronchitis. As above 4. Metabolic acidosis, clinically improved worsening renal function possibly secondary to diuretics 5. History of diabetes. Poor Glycemic control exacerbated by steroids 6. History of hypertension. 7. Atrial fibrillation. 8. Coronary artery disease. RECOMMENDATIONS: 1. Deep suctioning 2. Supplemental oxygen 3. Antibiotics. 4. Bronchodilators. 5. Noninvasive positive pressure ventilation if needed. 6. Speech therapy recommendations Prognosis guarded. An extensive discussion with patient's family at bedside discussed possibility of reintubation I also discussed the importance of keeping nothing by mouth They agree to G-tube placement Problems: SHIVA PERES MD, [facility] Mar 14, 2016 16:05
[2016-03-14 19:49] LABS: AADO2 Arterial 66.1 mmHg (7.0-24.0); Allen Test ACCEPTAB; Arterial Base Excess 2.4 mmol/L (-3.0-3); Arterial COHb 0.3 % (0.0-3.0); Arterial Fraction of Oxyhgb 97.9 % (93.0-99.0); Arterial HCO3 27.9 mmol/L (22.0-26.0); Arterial MetHb 0.3 % (0.0-1.5); Arterial Total Hemglobin 9.4 g/dl (12.0-18.0); MODE NASAL CANNULA
--- NOTE | 2016-03-14 20:40 | RADRPT ---
PROCEDURE: XR Chest. CLINICAL INDICATION: Shortness of breath. TECHNIQUE: Single frontal view. COMPARISON: 03/13/2016. FINDINGS: There is mild atelectasis at the lung bases, unchanged. Chronic bilateral interstitial pulmonary di sease is unchanged. The heart is enlarged. There is calcification in the aorta consistent with atherosclerosis. There is no right pleural effusion. There is a small left pleural effusion. There is no pneumothorax. IMPRESSION: 1. No change from 03/13/2016. RPTAT: QQ .Jim Calloway MD, MD Date Time Electronically viewed and signed by .Jim Calloway MD, MD on 03/14/2016 20:39 .R/
--- NOTE | 2016-03-14 20:56 | PN ---
Date/Time of Note Date/Time of Note DATE: 03/14/16 TIME: 20:41 Assessment/Plan VTE Prophylaxis VTE Prophylaxis Intervention: SCD's Lines/Catheters IV Catheter Type (from Nrsg): Peripheral IV Urinary Cath still in place: No Assessment/Plan Assessment/Plan [facility] 1. 85 yo woman with severe constipation, despite multiple medications. Enema and Magnesium citrate were not well-tolerated. Miralax added two days ago by GI. Had melenic stool yesterday, and again today. Also with black emesis this afternoon. Concern for UGI bleeding. Constipation likely related to her fentanyl patch use. KUB showing colon full of fecal matter, and CT abd/pelvis confirmed constipation with no evidence of abdominopelvic mass, lymphadenopathy or focal acute inflammatory pathology. * NG tube to look for upper GI bleeding * Monitor CBC * GI consult with possible upper endoscopy * Patient is NPO. * Switch PO to IV meds (Cardizem 10mg IV q4h) and clonidine to patch. 2. Acute Respiratory failure, secondary to bronchitis/URI/pneumonia. Reported history of asthma. Immunosuppressed with CellCept chronically * My thanks to Dr Ornelas following for pulmonary; we agreed to better diuresis. * Continue nebulizers, steroids taper down to 30 today, 3. Paroxysmal A fib, no CAD per family but hx of Minor CVA ... patient should be now on anticoagulation given findings of A fib, family agreeable and will d/ c Plavix. Patient not on ASA as outpatient per Family so will also d/c Continue Cardizem and Eliquis on hold given current GI and renal issues . 4. Acute on chronic kidney disease -- creatinine down to 1.3 (from > 2). 5. Anemia, acute with Hb 8.3 * monitor closely 6. Diabetes: * Continue Accu-Checks and sliding scale. * Continue Lantus 7. Hypertension. Management of Clonidine, Norvasc, and Cardizem as noted above. 8. 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 9. Chronic Pain, on fentanyl patch. * down to 75 mcg 10 Nutrition: * NPO now * Anticipating GI workup 11. Prophylaxis: Holding Eliquis given A fib, PPI for GI ppx 12. Disposition: Home once able to breathe and eat comfortably. Joey Gonsalez MD PhD [phone] Subjective 24 Hr Interval Summary Free Text/Dictation Moaning, lethargic. Son and caregiver in the room. Had melenic bowel movement yesterday, and one episode of black emesis tonight. Exam/Review of Systems Vital Signs Vitals Vital Signs Date Time Temp Pulse Resp B/P Pulse Ox O2 Delivery O2 Flow Rate FiO2 03/14/16 20:35 107 03/14/16 20:08 6.0 03/14/16 20:08 24 100 Nasal Cannula 03/14/16 19:43 98.3 139/60 Intake and Output 03/13/16 03/13/16 03/14/16 15:00 23:00 07:00 Intake Total 1260 ml 1100 ml Output Total 1100 ml 500 ml Balance 160 ml 600 ml Exam Constitutional: Somnolent, heavyset, breathing comfortably on 2L per NC Respiratory: clear to auscultation except for anterior expiratory rhonchi, good air movement Cardiovascular: irregular rhythm, slightly fast rate, symmetric radial pulses Gastrointestinal: bowel sounds positive, soft, trace tenderness, moderate tympany. Extremities: normal pulses Neurological: [employer] SERVICE [employer] II-XII intact, moving all extremities. Results Result Diagram: 03/14/16 0617 03/14/16 0617 Results 24 hrs Laboratory Tests Test 03/14/16 05:41 03/14/16 05:42 03/14/16 06:17 03/14/16 07:59 Stool Occult Blood POSITIVE Urine Bacteria MODERATE Urine Bilirubin NEGATIVE Urine Clarity CLEAR Urine Color LT. YELLOW Urine Glucose NEGATIVE Urine Hemoglobin 1+ H Urine Ketones NEGATIVE Urine Leukocyte Esterase 1+ H Urine Microscopic RBC 2-5 Urine Microscopic WBC 2-5 Urine Mucus FEW Urine Nitrite POSITIVE H Urine Specific [place] 1.020 Urine Squamous Epithelial Cells OCCASIONAL Urine Total Protein NEGATIVE Urine Urobilinogen 0.2 E.U./dL Urine pH 5.5 Alanine Aminotransferase (ALT/SGPT) 29 Albumin 2.9 L Albumin/Globulin Ratio 1.26 Alkaline Phosphatase 48 Anion Gap 17 H Aspartate Amino Transf (AST/SGOT) 18 Blood Morphology Comment Blood Urea Nitrogen 84 H Calcium Level 8.3 L Carbon Dioxide Level 26 Chloride Level 109 Creatinine 1.36 H Direct Bilirubin 0.00 Globulin 2.30 Glucose Level 144 Hematocrit 24.2 L Hemoglobin 8.1 L Indirect Bilirubin 0.2 Lactic Acid Level 0.8 Lymphocytes # 0.5 L Lymphocytes % 2.0 L Magnesium Level 3.5 H Mean Corpuscular Hemoglobin 27.0 L Mean Corpuscular Hemoglobin Concent 33.5 Mean Corpuscular Volume 80.8 L Mean Platelet Volume 8.2 Monocytes # 0.8 Monocytes % 3.0 Neutrophils # 24.6 H Neutrophils % 95.0 H Phosphorus Level 4.2 Platelet Count 274 Potassium Level 4.3 Red Blood Count 3.00 L Red Cell Distribution Width 15.5 H Sodium Level 148 H Total Bilirubin 0.2 Total Protein 5.2 L White Blood Count 25.9 #H Bedside Glucose 168 Test 03/14/16 12:11 03/14/16 17:00 03/14/16 17:38 Bedside Glucose 225 H 166 Arterial Blood HCO3 27.9 H Arterial Blood Base Excess 2.4 Arterial Blood Oxygen Saturation 98.5 David Test ACCEPTAB Arterial Blood Gas Puncture Site Left Radial Arterial Blood Carboxyhemoglobin 0.3 Arterial Blood Date Drawn 03/14/2016 7:40:19 PM Arterial Blood Methemoglobin 0.3 Arterial Blood pCO2 (Temp correct) 48.2 H Arterial Blood pH (Temp corrected) 7.381 Arterial Blood pO2 (Temp corrected) 156.4 H Blood Gas A-a O2 Differential 66.1 H Blood Gas Modality NASAL CANNULA Blood Gas Notified Time 03/14/2016 7:49:49 PM Blood Gas Notified Whom RI Blood Gas Specimen Source Blood arterial Blood Gas Temperature 37.0 FiO2 39.0 Oxyhemoglobin Percent 97.9 Total Hemoglobin 9.4 L Medications Medications Current Medications Brimonidine Tartrate (Alphagan 0.2%) 1 drop Q8 BOTH EYES Last administered on 03/14/16at 15:07; Admin Dose 1 DROP; Start 03/01/16 at 06:00 Clonidine (Catapres) 0.2 mg TID PO Last administered on 03/14/16at 14:48; Admin Dose 0.2 MG; Start 03/01/16 at 09:00 Latanoprost (Xalatan) 1 drop QHS BOTH EYES Last administered on 03/13/16at 20: 09; Admin Dose 1 DROP; Start 03/01/16 at 21:00 Mycophenolate Mofetil (Cellcept) 500 mg BID PO Last administered on 03/14/16at 08:44; Admin Dose 500 MG; Start 03/01/16 at 09:00 Acetaminophen (Tylenol Tab) 650 mg Q4H PRN PO pain/fever Last administered on 03/08/16 12:49; Admin Dose 650 MG; Start 03/01/16 at 01:00 Ondansetron HCl (Zofran Inj) 4 mg Q4H PRN IV nausea Last administered on 02:23; Admin Dose 4 MG; Start 03/01/16 at 01:00 Morphine Sulfate (morphine) 2 mg Q2H PRN IV pain Last administered on 11:42; Admin Dose 2 MG; Start 03/01/16 at 01:00 Hydralazine HCl (Apresoline) 25 mg Q6H PRN PO sbp>160; Start 03/01/16 at 01:00 Diltiazem HCl (Cardizem) 30 mg Q6H PO Last administered on 03/14/16 14:48; Admin Dose 30 MG; Start 03/01/16 at 02:00 Miscellaneous Information 1 ea NOTE XX ; Start 03/01/16 at 02:00 Glucose (Glutose) 15 gm Q15M PRN PO DECREASED GLUCOSE; Start 03/01/16 at 02:00 Glucose (Glutose) 22.5 gm Q15M PRN PO DECREASED GLUCOSE; Start 03/01/16 at 02: 00 Dextrose (D50w Syringe) 25 ml Q15M PRN IV DECREASED GLUCOSE Last administered on 03/13/16 13:36; Admin Dose 25 ML; Start 03/01/16 at 02:00 Dextrose (D50w Syringe) 50 ml Q15M PRN IV DECREASED GLUCOSE Last administered on 03/13/16at 12:30; Admin Dose 50 ML; Start 03/01/16 at 02:00 Glucagon (Glucagen) 1 mg Q15M PRN IM DECREASED GLUCOSE; Start 03/01/16 at 02: 00 Glucose (Glutose) 15 gm Q15M PRN BUCCAL DECREASED GLUCOSE; Start 03/01/16 at 02:00 Diagnostic Test (Pha) (Accucheck) 1 ea 02 XX Last administered on 03/13/16at 02 :00; Admin Dose 1 EA; Start 03/02/16 at 02:00 Bisacodyl (Dulcolax Supp) 10 mg DAILY PRN [place] CONSTIPATION Last administered on 03/08/16at 23:47; Admin Dose 10 MG; Start 03/03/16 at 11:30 Clotrimazole (Lotrimin Cr) 1 applic BID TOP Last administered on 03/14/16at 08: 47; Admin Dose 1 APPLIC; Start 03/03/16 at 13:30 Insulin Glargine (Lantus) 40 unit QHS SC Last administered on 03/12/16at 22:40 ; Admin Dose 40 UNIT; Start 03/04/16 at 21:00 Docusate Sodium 100 mg 100 mg BID PO Last administered on 03/14/16at 08:45; Admin Dose 100 MG; Start 03/05/16 at 10:30 Sodium Chloride (NS) 1,000 ml @ 75 mls/hr [id number] IV Last administered on at 20:25; Admin Dose 75 MLS/HR; Start 03/06/16 at 14:30 Sodium Chloride (Deep Sea) 1 spray Q4H PRN NASAL NASAL CONGESTION; Start 03/07 at 17:30 Ondansetron HCl (Zofran Inj) 4 mg Q4H PRN IV NAUSEA AND/OR VOMITING; Start at 23:30 Pantoprazole (Protonix Iv) 40 mg BID@06,18 IV Last administered on 03/14/16 17:47; Admin Dose 40 MG; Start 03/10/16 at 06:00 Fentanyl (Duragesic 75 Mcg/Hr Patch) 1 patch Q72H TRANSDERM Last administered on 03/14/16at 10:31; Admin Dose 1 PATCH; Start 03/11/16 at 09:00 Gabapentin (Neurontin) 300 mg Q8 GTB Last administered on 03/14/16at 14:46; Admin Dose 300 MG; Start 03/13/16 at 06:00 Lorazepam (Ativan) 0.5 mg HS PRN PO AGITATION/ANXIETY; Start 03/12/16 at 23:00 Methylprednisolone Sodium Succinate (Solu-Medrol) 30 mg DAILY IV Last administered on 03/14/16at 08:41; Admin Dose 30 MG; Start 03/13/16 at 09:30 Lactulose (Enulose) 20 gm Q6 PO Last administered on 03/14/16at 12:19; Admin Dose 20 GM; Start 03/13/16 at 18:00 Methylnaltrexone [place] 12 mg 12 mg DAILY SC Last administered on 03/14/16at 08:54; Admin Dose 12 MG; Start 03/13/16 at 14:00; Stop 03/15/16 at 08:00 Meropenem/Sodium Chloride (Merrem/NS) 100 ml @ 200 mls/hr Q12 IVPB Last administered on 03/14/16at 08:54; Admin Dose 200 MLS/HR; Start 03/13/16 at 17: 00 TRACI GONSALEZ M.D. Mar 14, 2016 20:51 08:54; Admin Dose 12 MG; Start 03/13/16 at 14:00; Stop 03/15/16 at 08:00 Meropenem/Sodium Chloride (Merrem/NS) 100 ml @ 200 mls/hr Q12 IVPB Last administered on 03/14/16at 08:54; Admin Dose 200 MLS/HR; Start 03/13/16 at 17: 00 TRACI GONSALEZ M.D. Mar 14, 2016 20:51 TRACI GONSALEZ M.D. Mar 14, 2016 20:51
[2016-03-14] MEDS: INSULIN GLARGINE [LANtus] 3 ML PEN SC SCH (21:00)
[2016-03-14] MEDS: LATANOPROST 0.005% 2.5 ML OPH BOTH EYES SCH (21:50)
[2016-03-14] MEDS: CLONIDINE 0.2 MG/24 HR PATCH TRANSDERM SCH (22:00)
[2016-03-15] VITALS (26 sets, daily range): BP systolic 122–168; BP diastolic 51–78; PULSE 92–147; RESP 12–27
[2016-03-15] MEDS: DILTIAZEM 25 MG INJ IV SCH ×6 (00:36→22:11)
[2016-03-15] MEDS: ALBUTEROL/IPRATROPIUM (NEB) 3 ML AMP HHN SCH ×4 (01:48→22:14)
[2016-03-15] MEDS: ACCUCHECK AT 2AM (Patients on SS coverage) XX SCH (02:00)
[2016-03-15] MEDS: LACTULOSE 30ML CUP PO SCH ×3 (05:05→18:00)
[2016-03-15] MEDS: GABAPENTIN 300 MG CAP GTB SCH ×3 (05:05→21:50)
[2016-03-15] MEDS: BRIMONIDINE 0.2% 5 ML BTL BOTH EYES SCH ×3 (05:06→21:50)
[2016-03-15] MEDS: PANTOPRAZOLE 40 MG INJ IV SCH ×2 (05:06→18:06)
[2016-03-15] MEDS: INSULIN ASPART [NOVOLOG] 3 ML PEN SC SCH ×7 (07:47→21:00)
[2016-03-15] MEDS: DOCUSATE SODIUM 100 MG CAP PO SCH ×2 (09:00→21:00)
[2016-03-15] MEDS: MYCOPHENOLATE 250 MG CAP PO SCH ×2 (09:00→21:00)
[2016-03-15] MEDS: METHYLPREDNISOLONE 40 MG INJ IV SCH (09:06)
[2016-03-15] MEDS: MEROPENEM 500 MG in SOD CHLORIDE 0.9% 100 ML IVPB SCH ×2 (09:06→22:19)
[2016-03-15] MEDS: CLOTRIMAZOLE 1% 30 GM CR TOP SCH ×2 (09:10→21:50)
[2016-03-15] MEDS: SOD CHLORIDE 0.9% 1,000 ML IV SCH (14:23)
--- NOTE | 2016-03-15 15:04 | CONS ---
Date/Time of Note Date/Time of Note DATE: 03/15/16 TIME: 15:01 Assessment/Plan Assessment/Plan Additional Assessment/Plan - Constipation, patient noncompliant will bowel prep, refused NG tube insertion - Chronic Kidney Disease ( DM nephropathy + HTN Nephrosclerosis ) - Anemia - Pulmonary disease / COPD - Pemphigoid Dz ( Immunosuppressed ) - Hypertension - Acidosis Recommendation: - Lactulose every 6 hrs, attempt reinsertion of NG tube and administer GoLYTELY - Stool OB 1 - May need need colonoscopy with biopsies to evaluate, but she needs to be able to complete bowel prep - motility problem also suggested by her poorly controlled DM - continue other supportive care - Further recommendations depend on clinical course Patient seen in collaboration with Dr. Zuniga Consultation Date/Type/Reason Admit Date/Time Feb 29, 2016 at 18:54 Initial Consult Date 03/08/16 Type of Consultation: pulmonary 24 HR Interval Summary Free Text/Dictation Patient transferred to ICU for code stroke evaluation Patient in bed on nasal cannula with 5 L Will attempt reinsertion of NG tube, stat KUB to confirm placement, and stat administration of GoLYTELY ----- Pt refused NG tube insertion again and BP elevated Will not retry Will order swallow eval before restarting meds Will add Amitiza to meds Exam/Review of Systems Vital Signs Vitals Vital Signs Date Time Temp Pulse Resp B/P Pulse Ox O2 Delivery O2 Flow Rate FiO2 03/15/16 12:55 112 24 99 Nasal Cannula 4.0 03/15/16 12:02 98.1 168/70 Intake and Output 03/14/16 03/14/16 03/15/16 14:59 22:59 06:59 Intake Total 120 ml 240 ml 1200 ml Output Total 1450 ml 900 ml Balance 120 ml -1210 ml 300 ml Exam Constitutional: Obese, agitated Head: atraumatic, normocephalic Eyes: EOMI, nl conjunctiva, nl lids, nl sclera ENMT: mucosa pink and moist, nl external ears & nose, nl lips & teeth, nl nasal mucosa & septum Neck: non-tender, supple Respiratory: labored breathing, normal air movement, wheezing Cardiovascular: nl pulses, regular rate and rhythm Gastrointestinal: bowel sounds, non-tender, soft Results Result Diagram: 03/14/16 0617 03/14/16 0617 Results 24 hrs Laboratory Tests Test 03/14/16 17:00 03/14/16 17:38 03/14/16 20:51 03/15/16 07:43 Arterial Blood HCO3 27.9 H Arterial Blood Base Excess 2.4 Arterial Blood Oxygen Saturation 98.5 David Test ACCEPTAB Arterial Blood Gas Puncture Site Left Radial Arterial Blood Carboxyhemoglobin 0.3 Arterial Blood Date Drawn 03/14/2016 7:40:19 PM Arterial Blood Methemoglobin 0.3 Arterial Blood pCO2 (Temp correct) 48.2 H Arterial Blood pH (Temp corrected) 7.381 Arterial Blood pO2 (Temp corrected) 156.4 H Blood Gas A-a O2 Differential 66.1 H Blood Gas Modality NASAL CANNULA Blood Gas Notified Time 03/14/2016 7:49:49 PM Blood Gas Notified Whom MA Blood Gas Specimen Source Blood arterial Blood Gas Temperature 37.0 FiO2 39.0 Oxyhemoglobin Percent 97.9 Total Hemoglobin 9.4 L Bedside Glucose 166 186 289 H Test 03/15/16 11:04 03/15/16 12:14 Bedside Glucose 247 H 223 H Medications Medications Current Medications Brimonidine Tartrate (Alphagan 0.2%) 1 drop Q8 BOTH EYES Last administered on 03/15/16at 05:06; Admin Dose 1 DROP; Start 03/01/16 at 06:00 Latanoprost (Xalatan) 1 drop QHS BOTH EYES Last administered on 03/14/16at 21: 50; Admin Dose 1 DROP; Start 03/01/16 at 21:00 Mycophenolate Mofetil (Cellcept) 500 mg BID PO Last administered on 03/14/16at 08:44; Admin Dose 500 MG; Start 03/01/16 at 09:00 Acetaminophen (Tylenol Tab) 650 mg Q4H PRN PO pain/fever Last administered on 03/08/16at 12:49; Admin Dose 650 MG; Start 03/01/16 at 01:00 Ondansetron HCl (Zofran Inj) 4 mg Q4H PRN IV nausea Last administered on at 02:23; Admin Dose 4 MG; Start 03/01/16 at 01:00 Morphine Sulfate (morphine) 2 mg Q2H PRN IV pain Last administered on at 11:42; Admin Dose 2 MG; Start 03/01/16 at 01:00 Miscellaneous Information 1 ea NOTE XX ; Start 03/01/16 at 02:00 Glucose (Glutose) 15 gm Q15M PRN PO DECREASED GLUCOSE; Start 03/01/16 at 02:00 Glucose (Glutose) 22.5 gm Q15M PRN PO DECREASED GLUCOSE; Start 03/01/16 at 02: 00 Dextrose (D50w Syringe) 25 ml Q15M PRN IV DECREASED GLUCOSE Last administered on 03/13/16at 13:36; Admin Dose 25 ML; Start 03/01/16 at 02:00 Dextrose (D50w Syringe) 50 ml Q15M PRN IV DECREASED GLUCOSE Last administered on 03/13/16at 12:30; Admin Dose 50 ML; Start 03/01/16 at 02:00 Glucagon (Glucagen) 1 mg Q15M PRN IM DECREASED GLUCOSE; Start 03/01/16 at 02: 00 Glucose (Glutose) 15 gm Q15M PRN BUCCAL DECREASED GLUCOSE; Start 03/01/16 at 02:00 Diagnostic Test (Pha) (Accucheck) 1 ea 02 XX Last administered on 03/13/16at 02 :00; Admin Dose 1 EA; Start 03/02/16 at 02:00 Bisacodyl (Dulcolax Supp) 10 mg DAILY PRN [place] CONSTIPATION Last administered on 03/08/16at 23:47; Admin Dose 10 MG; Start 03/03/16 at 11:30 Clotrimazole (Lotrimin Cr) 1 applic BID TOP Last administered on 03/15/16at 09: 10; Admin Dose 1 APPLIC; Start 03/03/16 at 13:30 Insulin Glargine (Lantus) 40 unit QHS SC Last administered on 03/12/16at 22:40 ; Admin Dose 40 UNIT; Start 03/04/16 at 21:00 Docusate Sodium 100 mg 100 mg BID PO Last administered on 03/14/16at 08:45; Admin Dose 100 MG; Start 03/05/16 at 10:30 Sodium Chloride (NS) 1,000 ml @ 75 mls/hr [id number] IV Last administered on at 14:23; Admin Dose 75 MLS/HR; Start 03/06/16 at 14:30 Sodium Chloride (Deep Sea) 1 spray Q4H PRN NASAL NASAL CONGESTION; Start 03/07 at 17:30 Ondansetron HCl (Zofran Inj) 4 mg Q4H PRN IV NAUSEA AND/OR VOMITING; Start at 23:30 Pantoprazole (Protonix Iv) 40 mg BID@06,18 IV Last administered on 03/15/16 05:06; Admin Dose 40 MG; Start 03/10/16 at 06:00 Fentanyl (Duragesic 75 Mcg/Hr Patch) 1 patch Q72H TRANSDERM Last administered on 03/14/16 10:31; Admin Dose 1 PATCH; Start 03/11/16 at 09:00 Gabapentin (Neurontin) 300 mg Q8 GTB Last administered on 03/14/16 14:46; Admin Dose 300 MG; Start 03/13/16 at 06:00 Lorazepam (Ativan) 0.5 mg HS PRN PO AGITATION/ANXIETY; Start 03/12/16 at 23:00 Methylprednisolone Sodium Succinate (Solu-Medrol) 30 mg DAILY IV Last administered on 03/15/16 09:06; Admin Dose 30 MG; Start 03/13/16 at 09:30 Lactulose 20 gm 20 gm Q6 PO Last administered on 03/14/16 12:19; Admin Dose 20 GM; Start 03/13/16 at 18:00 Meropenem/Sodium Chloride (Merrem/NS) 100 ml @ 200 mls/hr Q12 IVPB Last administered on 03/15/16 09:06; Admin Dose 200 MLS/HR; Start 03/13/16 at 17: 00 Hydralazine HCl (Apresoline) 10 mg Q6H PRN IV SBP>160; Start 03/14/16 at 22:00 Clonidine HCl (Catapres-Tts 2 Patch) 1 patch Q7D TRANSDERM Last administered on 03/14/16 22:00; Admin Dose 1 PATCH; Start 03/14/16 at 22:00 Diltiazem HCl (Cardizem Iv) 10 mg Q4 IV Last administered on 03/15/16 14:25; Admin Dose 10 MG; Start 03/15/16 at 01:00 TR AMES Mar 15, 2016 15:04
[2016-03-15] MEDS: LUBIPROSTONE 24 MCG CAP PO SCH ×2 (15:45→21:00)
--- NOTE | 2016-03-15 15:56 | CONS ---
Date/Time of Note Date/Time of Note DATE: 03/15/16 TIME: 15:50 Consult Date/Type/Reason Admit Date/Time Feb 29, 2016 at 18:54 Type of Consultation: pulmonary Subjective Worsening lethargy and respiratory distress this morning Moderate oral secretions which she is having trouble clearing Intermittent agitation Objective Vital Signs Date Time Temp Pulse Resp B/P Pulse Ox O2 Delivery O2 Flow Rate FiO2 03/15/16 13:27 122 03/15/16 12:55 24 99 Nasal Cannula 4.0 03/15/16 12:02 98.1 168/70 Intake and Output 03/14/16 03/14/16 03/15/16 14:59 22:59 06:59 Intake Total 120 ml 240 ml 1200 ml Output Total 1450 ml 900 ml Balance 120 ml -1210 ml 300 ml GENERAL: Frail elderly lady with audible rales and crackles predominantly upper airway noise VITAL SIGNS: per chart NECK: Supple. No JVD or lymphadenopathy. CARDIAC EXAM: S1, S2. No added sounds or murmurs. CHEST: Diminished air entry bilaterally with rales ABDOMEN: Soft, nontender. No guarding or rebound. EXTREMITIES: No cyanosis, clubbing or edema. NEUROLOGIC: Generalized weakness. Results/Medications Result Diagram: 03/14/16 0617 03/14/16 0617 Results 24 hrs Laboratory Tests Test 03/14/16 17:00 03/14/16 17:38 03/14/16 20:51 03/15/16 07:43 Arterial Blood HCO3 27.9 H Arterial Blood Base Excess 2.4 Arterial Blood Oxygen Saturation 98.5 David Test ACCEPTAB Arterial Blood Gas Puncture Site Left Radial Arterial Blood Carboxyhemoglobin 0.3 Arterial Blood Date Drawn 03/14/2016 7:40:19 PM Arterial Blood Methemoglobin 0.3 Arterial Blood pCO2 (Temp correct) 48.2 H Arterial Blood pH (Temp corrected) 7.381 Arterial Blood pO2 (Temp corrected) 156.4 H Blood Gas A-a O2 Differential 66.1 H Blood Gas Modality NASAL CANNULA Blood Gas Notified Time 03/14/2016 7:49:49 PM Blood Gas Notified Whom [facility] Blood Gas Specimen Source Blood arterial Blood Gas Temperature 37.0 FiO2 39.0 Oxyhemoglobin Percent 97.9 Total Hemoglobin 9.4 L Bedside Glucose 166 186 289 H Test 03/15/16 11:04 03/15/16 12:14 Bedside Glucose 247 H 223 H Medications Current Medications Brimonidine Tartrate (Alphagan 0.2%) 1 drop Q8 BOTH EYES Last administered on 03/15/16 05:06; Admin Dose 1 DROP; Start 03/01/16 at 06:00 Latanoprost (Xalatan) 1 drop QHS BOTH EYES Last administered on 03/14/16 21: 50; Admin Dose 1 DROP; Start 03/01/16 at 21:00 Mycophenolate Mofetil (Cellcept) 500 mg BID PO Last administered on 03/14/16 08:44; Admin Dose 500 MG; Start 03/01/16 at 09:00 Acetaminophen (Tylenol Tab) 650 mg Q4H PRN PO pain/fever Last administered on 03/08/16at 12:49; Admin Dose 650 MG; Start 03/01/16 at 01:00 Ondansetron HCl (Zofran Inj) 4 mg Q4H PRN IV nausea Last administered on at 02:23; Admin Dose 4 MG; Start 03/01/16 at 01:00 Morphine Sulfate (morphine) 2 mg Q2H PRN IV pain Last administered on at 11:42; Admin Dose 2 MG; Start 03/01/16 at 01:00 Miscellaneous Information 1 ea NOTE XX ; Start 03/01/16 at 02:00 Glucose (Glutose) 15 gm Q15M PRN PO DECREASED GLUCOSE; Start 03/01/16 at 02:00 Glucose (Glutose) 22.5 gm Q15M PRN PO DECREASED GLUCOSE; Start 03/01/16 at 02: 00 Dextrose (D50w Syringe) 25 ml Q15M PRN IV DECREASED GLUCOSE Last administered on 03/13/16at 13:36; Admin Dose 25 ML; Start 03/01/16 at 02:00 Dextrose (D50w Syringe) 50 ml Q15M PRN IV DECREASED GLUCOSE Last administered on 03/13/16at 12:30; Admin Dose 50 ML; Start 03/01/16 at 02:00 Glucagon (Glucagen) 1 mg Q15M PRN IM DECREASED GLUCOSE; Start 03/01/16 at 02: 00 Glucose (Glutose) 15 gm Q15M PRN BUCCAL DECREASED GLUCOSE; Start 03/01/16 at 02:00 Diagnostic Test (Pha) (Accucheck) 1 ea 02 XX Last administered on 03/13/16 02 :00; Admin Dose 1 EA; Start 03/02/16 at 02:00 Bisacodyl (Dulcolax Supp) 10 mg DAILY PRN [place] CONSTIPATION Last administered on 03/08/16 23:47; Admin Dose 10 MG; Start 03/03/16 at 11:30 Clotrimazole (Lotrimin Cr) 1 applic BID TOP Last administered on 03/15/16 09: 10; Admin Dose 1 APPLIC; Start 03/03/16 at 13:30 Insulin Glargine (Lantus) 40 unit QHS SC Last administered on 03/12/16 22:40 ; Admin Dose 40 UNIT; Start 03/04/16 at 21:00 Docusate Sodium 100 mg 100 mg BID PO Last administered on 03/14/16 08:45; Admin Dose 100 MG; Start 03/05/16 at 10:30 Sodium Chloride (NS) 1,000 ml @ 75 mls/hr [id number] IV Last administered on 14:23; Admin Dose 75 MLS/HR; Start 03/06/16 at 14:30 Sodium Chloride (Deep Sea) 1 spray Q4H PRN NASAL NASAL CONGESTION; Start 03/07 at 17:30 Ondansetron HCl (Zofran Inj) 4 mg Q4H PRN IV NAUSEA AND/OR VOMITING; Start at 23:30 Pantoprazole (Protonix Iv) 40 mg BID@06,18 IV Last administered on 03/15/16 05:06; Admin Dose 40 MG; Start 03/10/16 at 06:00 Fentanyl (Duragesic 75 Mcg/Hr Patch) 1 patch Q72H TRANSDERM Last administered on 03/14/16 10:31; Admin Dose 1 PATCH; Start 03/11/16 at 09:00 Gabapentin (Neurontin) 300 mg Q8 GTB Last administered on 03/14/16 14:46; Admin Dose 300 MG; Start 03/13/16 at 06:00 Lorazepam (Ativan) 0.5 mg HS PRN PO AGITATION/ANXIETY; Start 03/12/16 at 23:00 Methylprednisolone Sodium Succinate (Solu-Medrol) 30 mg DAILY IV Last administered on 12/29/16at 09:06; Admin Dose 30 MG; Start 03/13/16 at 09:30 Lactulose 20 gm 20 gm Q6 PO Last administered on 03/14/16at 12:19; Admin Dose 20 GM; Start 03/13/16 at 18:00 Meropenem/Sodium Chloride (Merrem/NS) 100 ml @ 200 mls/hr Q12 IVPB Last administered on 03/15/16at 09:06; Admin Dose 200 MLS/HR; Start 03/13/16 at 17: 00 Hydralazine HCl (Apresoline) 10 mg Q6H PRN IV SBP>160; Start 03/14/16 at 22:00 Clonidine HCl (Catapres-Tts 2 Patch) 1 patch Q7D TRANSDERM Last administered on 03/14/16at 22:00; Admin Dose 1 PATCH; Start 03/14/16 at 22:00 Diltiazem HCl (Cardizem Iv) 10 mg Q4 IV Last administered on 03/15/16at 14:25; Admin Dose 10 MG; Start 03/15/16 at 01:00 Polyethylene Glycol/ Electrolytes (Golytely) 4,000 ml ONCE ONCE PO ; Start at 17:00; Stop 03/15/16 at 17:01 Lubiprostone (Amitiza) 24 mcg BID PO ; Start 03/15/16 at 16:00 Assessment/Plan Chief Complaint/Hosp Course IMPRESSION: An 85-year-old female with: 1. Acute hypoxemic respiratory failure. Significant aspiration component significant neuromuscular weakness 2. Chronic obstructive pulmonary disease exacerbation. 3. Bronchitis. As above persistent leukocytosis 4. Metabolic acidosis, clinically improved worsening renal function possibly secondary to diuretics 5. History of diabetes. Poor Glycemic control exacerbated by steroids 6. History of hypertension. 7. Atrial fibrillation. 8. Coronary artery disease. 9. Anemia likely possibly dilutional questionable GI loss RECOMMENDATIONS: 1. Deep suctioning. Transfer to intensive care unit 2. Supplemental oxygen 3. Antibiotics. 4. Bronchodilators. 5. Noninvasive positive pressure ventilation if needed. 6. Speech therapy recommendations Prognosis guarded. I had an extensive discussion with patient's son who is a physician at bedside. Explained poor prognosis. I explained the need for intubation and mechanical ventilation for bronchoscopy and probably for upper GI endoscopy. Patient's family understand that intubation may result in patient never coming off mechanical ventilation. At this point they wish or aggressive measures including short-term intubation and mechanical ventilation if possible. Problems: SHIVA PERES MD, [facility] Mar 15, 2016 15:56
--- NOTE | 2016-03-15 16:07 | PN ---
Date/Time of Note Date/Time of Note DATE: 03/15/16 TIME: 15:53 Assessment/Plan VTE Prophylaxis VTE Prophylaxis Intervention: SCD's Lines/Catheters IV Catheter Type (from Nrs): Peripheral IV Urinary Cath still in place: Yes Reason Cath still needed: other (indicate) (critical illness) Assessment/Plan Assessment/Plan Assessment/Plan [facility] 1. 85 yo woman with increased upper respiratory congestion today, transferred this afternoon to the ICU. She is saturating 99% on 4L/NC. CXR yesterday shows interstitial pulmonary fibrosis, but no focal infiltrates. No vascular congestion on CXR, nor on exam today. Appears euvolemic. Echo showed normal LV function, but with elevated pulmonary artery pressures. WBC yesterday still elevated, though without fever or hypotension. Patient is immunosuppressed on Mycophenolate. * Continue meropenem. * Oxygen support * Regular suctioning * DVT prophylaxis with SCDs (concern for GI bleeding precludes anticoagulation * PICC line placement tonight, with repeat blood tests 2. Improved stooling, after prolonged period of constipation despite multiple measures including enema, magnesium citrate, Miralax. Nursing staff says the stools were not melenic, though the family questions this. Black emesis reported yesterday afternoon. Concern for UGI bleeding. Constipation likely related to her hyperglycemia and Fentanyl patch use. KUB showed colon full of fecal matter, and CT abd/pelvis confirmed constipation showed no evidence of abdominopelvic mass, lymphadenopathy or focal acute inflammatory pathology. * NG tube placement for upper GI bleeding was unsuccessful * Monitor CBC * GI consult by Dr. Vasquez was 13 days ago, and I left a message for him regarding re-consult to explore upper endoscopy and/or J-G tube placement. * Patient remains NPO. * Switch PO to IV meds (Cardizem 10mg IV q4h) and clonidine to patch. 3. Acute Respiratory failure, secondary to bronchitis/URI/pneumonia. Reported history of asthma. Immunosuppressed with CellCept chronically * My thanks to Dr Ceci méndez for pulmonary; we agreed to better diuresis. * Continue nebulizers, steroids taper down to 30 mg daily today 4. Paroxysmal atrial fibrillation, with no CAD per family * Continue Cardizem. * Hold Eliquis given question of GI bleeding 5. CKD: Was at baseline of 1.35 on admission, then worsened to 3.12 last week, now back to baseline. 6. Anemia, acute with Hb 8.3 g/dl. * monitor closely 6. Diabetes. Sugars are higher today, but Lantus insulin was held the last two nights for unclear reasons. * Continue Accu-Checks and sliding scale. * Continue Lantus at lower dose of 30-units at bedtime, given her NPO status. 7. Hypertension. Management of Clonidine, Norvasc, and Cardizem as noted above. 8. 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 9. Chronic Pain, on fentanyl patch. Generally chronic low back pain benefits from more conservative measures, including PT, acupuncture, non-narcotic analgesics. * down to 75 mcg topically. 10 Nutrition: * NPO now * Anticipating GI workup 11. Prophylaxis: Holding Eliquis given A fib, PPI for GI ppx 12. Disposition: Home once able to breathe and eat comfortably. Joey Gonsalez MD PhD [phone] Subjective 24 Hr Interval Summary Free Text/Dictation Spoke at length with her son, Evaristo, and with Dr. Ariana Resendiz, a relative who is also her PCP. Concern about increased congestion and weakness. No pain complaints. Exam/Review of Systems Vital Signs Vitals Vital Signs Date Time Temp Pulse Resp B/P Pulse Ox O2 Delivery O2 Flow Rate FiO2 03/15/16 13:27 122 03/15/16 12:55 24 99 Nasal Cannula 4.0 03/15/16 12:02 98.1 168/70 Intake and Output 03/14/16 03/14/16 03/15/16 14:59 22:59 06:59 Intake Total 120 ml 240 ml 1200 ml Output Total 1450 ml 900 ml Balance 120 ml -1210 ml 300 ml Exam Constitutional: Somnolent, heavyset, very tired-appearing on 2L per NC Respiratory: Mild upper respiratory rhonchi, but otherwise clear to auscultation with good air movement Cardiovascular: Irregular rhythm, tachycardic to 140s, symmetric radial pulses Gastrointestinal: bowel sounds positive, soft, trace tenderness, moderate tympany. Extremities: Symmetric pulses, stasis changes with induration around the proximal IT band of both hips, and hyperpigmentation of both distal calves. No cords in the calves. Neurological: [employer] II-XII intact, moving all extremities. Somnolent and very lethargic-appearing. Results Result Diagram: 03/14/16 0617 03/14/16 0617 Results 24 hrs Laboratory Tests Test 03/14/16 17:00 03/14/16 17:38 03/14/16 20:51 03/15/16 07:43 Arterial Blood HCO3 27.9 H Arterial Blood Base Excess 2.4 Arterial Blood Oxygen Saturation 98.5 David Test ACCEPTAB Arterial Blood Gas Puncture Site Left Radial Arterial Blood Carboxyhemoglobin 0.3 Arterial Blood Date Drawn 03/14/2016 7:40:19 PM Arterial Blood Methemoglobin 0.3 Arterial Blood pCO2 (Temp correct) 48.2 H Arterial Blood pH (Temp corrected) 7.381 Arterial Blood pO2 (Temp corrected) 156.4 H Blood Gas A-a O2 Differential 66.1 H Blood Gas Modality NASAL CANNULA Blood Gas Notified Time 03/14/2016 7:49:49 PM Blood Gas Notified Whom MA Blood Gas Specimen Source Blood arterial Blood Gas Temperature 37.0 FiO2 39.0 Oxyhemoglobin Percent 97.9 Total Hemoglobin 9.4 L Bedside Glucose 166 186 289 H Test 03/15/16 11:04 03/15/16 12:14 Bedside Glucose 247 H 223 H Medications Medications Current Medications Brimonidine Tartrate (Alphagan 0.2%) 1 drop Q8 BOTH EYES Last administered on 03/15/16at 05:06; Admin Dose 1 DROP; Start 03/01/16 at 06:00 Latanoprost (Xalatan) 1 drop QHS BOTH EYES Last administered on 03/14/16at 21: 50; Admin Dose 1 DROP; Start 03/01/16 at 21:00 Mycophenolate Mofetil (Cellcept) 500 mg BID PO Last administered on 03/14/16at 08:44; Admin Dose 500 MG; Start 03/01/16 at 09:00 Acetaminophen (Tylenol Tab) 650 mg Q4H PRN PO pain/fever Last administered on 03/08/16at 12:49; Admin Dose 650 MG; Start 03/01/16 at 01:00 Ondansetron HCl (Zofran Inj) 4 mg Q4H PRN IV nausea Last administered on at 02:23; Admin Dose 4 MG; Start 03/01/16 at 01:00 Morphine Sulfate (morphine) 2 mg Q2H PRN IV pain Last administered on at 11:42; Admin Dose 2 MG; Start 03/01/16 at 01:00 Miscellaneous Information 1 ea NOTE XX ; Start 03/01/16 at 02:00 Glucose (Glutose) 15 gm Q15M PRN PO DECREASED GLUCOSE; Start 03/01/16 at 02:00 Glucose (Glutose) 22.5 gm Q15M PRN PO DECREASED GLUCOSE; Start 03/01/16 at 02: 00 Dextrose (D50w Syringe) 25 ml Q15M PRN IV DECREASED GLUCOSE Last administered on 03/13/16at 13:36; Admin Dose 25 ML; Start 03/01/16 at 02:00 Dextrose (D50w Syringe) 50 ml Q15M PRN IV DECREASED GLUCOSE Last administered on 03/13/16at 12:30; Admin Dose 50 ML; Start 03/01/16 at 02:00 Glucagon (Glucagen) 1 mg Q15M PRN IM DECREASED GLUCOSE; Start 03/01/16 at 02: 00 Glucose (Glutose) 15 gm Q15M PRN BUCCAL DECREASED GLUCOSE; Start 03/01/16 at 02:00 Diagnostic Test (Pha) (Accucheck) 1 ea 02 XX Last administered on 03/13/16at 02 :00; Admin Dose 1 EA; Start 03/02/16 at 02:00 Bisacodyl (Dulcolax Supp) 10 mg DAILY PRN [place] CONSTIPATION Last administered on 03/08/16at 23:47; Admin Dose 10 MG; Start 03/03/16 at 11:30 Clotrimazole (Lotrimin Cr) 1 applic BID TOP Last administered on 03/15/16at 09: 10; Admin Dose 1 APPLIC; Start 03/03/16 at 13:30 Insulin Glargine (Lantus) 40 unit QHS SC Last administered on 03/12/16at 22:40 ; Admin Dose 40 UNIT; Start 03/04/16 at 21:00 Docusate Sodium 100 mg 100 mg BID PO Last administered on 03/14/16at 08:45; Admin Dose 100 MG; Start 03/05/16 at 10:30 Sodium Chloride (NS) 1,000 ml @ 75 mls/hr [id number] IV Last administered on at 14:23; Admin Dose 75 MLS/HR; Start 03/06/16 at 14:30 Sodium Chloride (Deep Sea) 1 spray Q4H PRN NASAL NASAL CONGESTION; Start 03/07 at 17:30 Ondansetron HCl (Zofran Inj) 4 mg Q4H PRN IV NAUSEA AND/OR VOMITING; Start at 23:30 Pantoprazole (Protonix Iv) 40 mg BID@06,18 IV Last administered on 03/15/16at 05:06; Admin Dose 40 MG; Start 03/10/16 at 06:00 Fentanyl (Duragesic 75 Mcg/Hr Patch) 1 patch Q72H TRANSDERM Last administered on 03/14/16at 10:31; Admin Dose 1 PATCH; Start 03/11/16 at 09:00 Gabapentin (Neurontin) 300 mg Q8 GTB Last administered on 03/14/16at 14:46; Admin Dose 300 MG; Start 03/13/16 at 06:00 Lorazepam (Ativan) 0.5 mg HS PRN PO AGITATION/ANXIETY; Start 03/12/16 at 23:00 Methylprednisolone Sodium Succinate (Solu-Medrol) 30 mg DAILY IV Last administered on 03/15/16at 09:06; Admin Dose 30 MG; Start 03/13/16 at 09:30 Lactulose 20 gm 20 gm Q6 PO Last administered on 03/14/16at 12:19; Admin Dose 20 GM; Start 03/13/16 at 18:00 Meropenem/Sodium Chloride (Merrem/NS) 100 ml @ 200 mls/hr Q12 IVPB Last administered on 03/15/16at 09:06; Admin Dose 200 MLS/HR; Start 03/13/16 at 17: 00 Hydralazine HCl (Apresoline) 10 mg Q6H PRN IV SBP>160; Start 03/14/16 at 22:00 Clonidine HCl (Catapres-Tts 2 Patch) 1 patch Q7D TRANSDERM Last administered on 03/14/16at 22:00; Admin Dose 1 PATCH; Start 03/14/16 at 22:00 Diltiazem HCl (Cardizem Iv) 10 mg Q4 IV Last administered on 03/15/16at 14:25; Admin Dose 10 MG; Start 03/15/16 at 01:00 Polyethylene Glycol/ Electrolytes (Golytely) 4,000 ml ONCE ONCE PO ; Start at 17:00; Stop 03/15/16 at 17:01 TRACI GONSALEZ M.D. Mar 15, 2016 16:06
[2016-03-15] MEDS ORDERED: PEG/ELECTROLYTES 4L BTL PO ONE (17:00)
[2016-03-15] MEDS ORDERED: LIDOCAINE 1% (MDV) 20 ML INJ SC ONE (17:00)
--- NOTE | 2016-03-15 17:28 | PN ---
DATE: 03/15/2016 SUBJECTIVE: The patient was transferred to ICU for acute respiratory distress. She is awake, looks comfortable, saturating 99% on 4 liters nasal cannula. Family at bedside. VITAL SIGNS: Temperature 98.1, pulse 112, respirations 24, blood pressure 168/70, WBC 25.9 yesterda y. No labs this morning. MICROBIOLOGY: Blood and urine culture growing gram-negative rods. ANTIMICROBIALS: The patient is on meropenem started on 03/13/2016, status post 12 days of Levaquin. She is also getting steroids tapered now on 30 mg per day of Solu-Medrol. INDWELLINGS: Tong. PHYSICAL EXAMINATION: GENERAL: This is a morbidly obese elderly woman who is awake, in no distress. HEENT: Head atraumatic, normocephalic. Sclerae anicteric. Buccal mucosa dry. NECK: Supple. CHEST: Rise symmetrical. Breath sounds with bilateral scattered crackles. HEART: S1, S2. ABDOMEN: Obese, soft, bowel tones present. EXTREMITIES: Without cyanosis. ASSESSMENT: 1. Acute respiratory failure secondary to chronic obstructive pulmonary disease exacerbation and po ssible ongoing aspiration given significant neuromuscular weakness and inability to clear secretions . 2. Gram-negative rods urinary tract infection. 3. Acute renal failure. 4. Paroxysmal atrial fibrillation. 5. Diabetes. 6. Anemia. 7. History of pemphigoid disease status post Bactrim and ____ steroids. PLAN: The patient remains hemodynamically stable on appropriate antimicrobials, pulmonary, cardiolo gy, nephrology on case. Gastroenterology as well. We will continue her on current antimicrobials, await for final cultures, pending PICC line placement. Above was discussed with ____ and the matilda singh at bedside. Dictated By: LEÓN PAK [employer] for MIMI KHOURY MD NI/NTS Conf#: [id number] DID#: [id number]
[2016-03-15] MEDS: INSULIN GLARGINE [LANtus] 3 ML PEN SC SCH (21:52)
[2016-03-15] MEDS: LATANOPROST 0.005% 2.5 ML OPH BOTH EYES SCH (22:19)
--- NOTE | 2016-03-15 22:22 | RADRPT ---
PROCEDURE: Ultrasound guidance for placement of needle in left upper extremity vein. CLINICAL INDICATION: Venous access. TECHNIQUE: Limited sonography of the left upper extremity was performed. Ultrasound images were recorded and s tored in the patient's medical record. COMPARISON: None. FINDINGS: The ultrasound images demonstrate a patent left upper extremity vein. The PICC line was inserted by the PICC line nurse. IMPRESSION: 1. Ultrasound guidance for a needle placement in a left upper extremity vein. 2. The left upper extremity vein is patent. RPTAT: QQ .Jim Calloway MD, MD Date Time Electronically viewed and signed by .Jim Calloway MD, MD on 03/15/2016 22:22 .R/
--- NOTE | 2016-03-15 22:24 | RADRPT ---
PROCEDURE: XR Chest. CLINICAL INDICATION: Check PICC line position. TECHNIQUE: Single frontal view. COMPARISON: 03/14/2016. FINDINGS: There is a left arm PICC line with the tip in the right internal jugular vein inferiorly. There is mild atelectasis at the lung bases with left worse than right. The lungs are otherwise clear. The heart is enlarged. There is calcification in the aorta consistent with atherosclerosis. There is no right pleural effusion. There is a small left pleural effusion. There is no pneumothorax. IMPRESSION: 1. Left arm PICC line tip in the right internal jugular vein. 2. Atelectasis at the lung bases, left worse than right. 3. Cardiomegaly and atherosclerosis. 4. Small left pleural effusion. RPTAT: QQ .Jim Calloway MD, Date Time Electronically viewed and signed by .Jim Calloway MD, on 03/15/2016 22:24 .R/
--- NOTE | 2016-03-15 22:25 | RADRPT ---
PROCEDURE: XR Chest. CLINICAL INDICATION: Check PICC line position. TECHNIQUE: Single frontal view. COMPARISON: 03/15/2016. 2134 hours. FINDINGS: There is a left arm PICC line with the tip in the right internal jugular vein inferiorly. There is mild atelectasis at the lung bases with left worse than right. The lungs are otherwise clear. The heart is enlarged. There is calcification in the aorta consistent with atherosclerosis. There is no right pleural effusion. There is a small left pleural effusion. There is no pneumothorax. IMPRESSION: 1. Left arm PICC line tip in the right internal jugular vein. 2. Atelectasis at the lung bases, left worse than right. 3. Cardiomegaly and atherosclerosis. 4. Small left pleural effusion. RPTAT: QQ .Jim Calloway MD, MD Date Time Electronically viewed and signed by .Jim Calloway MD, MD on 03/15/2016 22:25 .R/
--- NOTE | 2016-03-15 22:40 | RADRPT ---
PROCEDURE: XR Chest. CLINICAL INDICATION: Check PICC line position. TECHNIQUE: Single frontal view. COMPARISON: 03/15/2016. 2134 hours. FINDINGS: There is a left arm PICC line with the tip in the upper superior vena cava. There is mild atelectas is at the lung bases with left worse than right. The lungs are otherwise clear. Heart is enlarged. There is calcification in the aorta consistent with atherosclerosis. There is no right pleural effusion. There is a small left pleural effusion. There is no pneumothorax. IMPRESSION: 1. Left arm PICC line tip in the upper superior vena cava. 2. Atelectasis at the lung bases, left worse than right. 3. Cardiomegaly and atherosclerosis. 4. Small left pleural effusion. RPTAT: QQ .Jim Calloway MD, MD Date Time Electronically viewed and signed by .Jim Calloway MD, MD on 03/15/2016 22:39 .R/
--- NOTE | 2016-03-15 22:42 | RADRPT ---
PROCEDURE: XR Chest. CLINICAL INDICATION: Check PICC line position. TECHNIQUE: Single frontal view. COMPARISON: 03/15/2016. 21:37 hours. FINDINGS: There is a left arm PICC line with the tip in the lower superior vena cava. There is mild atelectas is at the lung bases with left worse than right. The lungs are otherwise clear. Heart is enlarged. There is calcification in the aorta consistent with atherosclerosis. There is no right pleural effusion. There is a small left pleural effusion. There is no pneumothorax. IMPRESSION: 1. Left arm PICC line tip in satisfactory position in the the lower superior vena cava. 2. Atelectasis at the lung bases, left worse than right. 3. Cardiomegaly and atherosclerosis. 4. Small left pleural effusion. RPTAT: QQ .Jim Calloway MD, MD Date Time Electronically viewed and signed by .Jim Calloway MD, on 03/15/2016 22:42 .R/
[2016-03-15 23:33] LABS: HEMATOCRIT 22.8 % (37.0-47.0); HEMOGLOBIN 7.3 g/dl (12.0-16.0); MEAN CORPUSCULAR HEMOGLOBIN 25.9 pg (29.0-33.0); MEAN PLATELET VOLUME 7.8 fl (7.4-10.4); PLATELET COUNT 237 10^3/UL (140-440); RED BLOOD COUNT 2.82 10^6/ul (4.20-5.40); RED CELL DISTRIBUTION WIDTH 16.1 % (11.5-14.5)
[2016-03-15 23:35] LABS: POTASSIUM 3.2 mmol/L (3.5-5.1)
[2016-03-15 23:37] LABS: CREATININE 1.42 mg/dl (0.44-1.00)
[2016-03-15 23:38] LABS: CALCIUM 8.6 mg/dl (8.4-10.2)
[2016-03-15 23:39] LABS: CONDITION 1; LH ANALYZER COMMENTS 1
[2016-03-16] VITALS (41 sets, daily range): BP systolic 98–193; BP diastolic 47–150; PULSE 89–157; RESP 9–39
[2016-03-16 00:27] LABS: LYMPHOCYTES # 0.8 10^3/ul (0.8-2.9); MONOCYTE # 0.3 10^3/ul (0.3-0.9)
[2016-03-16 00:28] LABS: PLATELET ESTIMATE PLT APPEAR ADEQUATE
[2016-03-16] MEDS: DILTIAZEM 25 MG INJ IV SCH ×6 (01:10→20:29)
[2016-03-16] MEDS ORDERED: 1/2 NS + KCL 20 MEQ 1,000 ML IV SCH (01:30)
[2016-03-16] MEDS: ALBUTEROL/IPRATROPIUM (NEB) 3 ML AMP HHN SCH ×4 (01:35→20:22)
[2016-03-16] MEDS: POTASSIUM CHLORIDE 50 ML IVPB SCH ×2 (01:53→02:56)
[2016-03-16] MEDS: ACCUCHECK AT 2AM (Patients on SS coverage) XX SCH (02:00)
[2016-03-16] MEDS: PANTOPRAZOLE 40 MG INJ IV SCH ×2 (05:24→19:00)
[2016-03-16] MEDS: GABAPENTIN 300 MG CAP GTB SCH ×3 (05:25→22:00)
[2016-03-16] MEDS: BRIMONIDINE 0.2% 5 ML BTL BOTH EYES SCH ×3 (05:25→22:00)
[2016-03-16] MEDS: LACTULOSE 30ML CUP PO SCH ×4 (05:26→18:00)
[2016-03-16] MEDS: INSULIN ASPART [NOVOLOG] 3 ML PEN SC SCH ×8 (07:35→20:40)
[2016-03-16] MEDS ORDERED: SOD CHLORIDE 0.9% 250 ML IV* ONE ×2 (07:39→07:55)
--- NOTE | 2016-03-16 08:00 | CONS ---
Date/Time of Note Date/Time of Note DATE: 03/16/16 TIME: 07:58 Consultation Date/Type/Reason Admit Date/Time Feb 29, 2016 at 18:54 Initial Consult Date 03/08/16 Type of Consultation: Gastroenterology 24 HR Interval Summary Free Text/Dictation Family reports melena stools and coffee-ground emesis Stool OB positive Hemoglobin at 7.3, will transfuse 2 units EGD planned for today Exam/Review of Systems Vital Signs Vitals Vital Signs Date Time Temp Pulse Resp B/P Pulse Ox O2 Delivery O2 Flow Rate FiO2 03/16/16 07:00 141 29 154/90 99 Nasal Cannula 2.0 03/16/16 04:00 97.8 Intake and Output 03/15/16 03/15/16 03/16/16 15:00 23:00 07:00 Intake Total 650 ml 700 ml 550 ml Output Total 650 ml 460 ml 410 ml Balance 0 ml 240 ml 140 ml Results Result Diagram: 03/15/16 2240 03/15/16 2310 Results 24 hrs Laboratory Tests Test 03/15/16 11:04 03/15/16 12:14 03/15/16 18:06 03/15/16 21:50 Bedside Glucose 247 H 223 H 198 138 Test 03/15/16 22:40 03/15/16 23:10 03/16/16 02:00 Blood Morphology Comment Hematocrit 22.8 L Hemoglobin 7.3 L Lymphocytes # 0.8 Lymphocytes % 6.0 L Mean Corpuscular Hemoglobin 25.9 L Mean Corpuscular Hemoglobin Concent 32.0 Mean Corpuscular Volume 81.0 L Mean Platelet Volume 7.8 Monocytes # 0.3 Monocytes % 2.0 Neutrophils # 12.0 H Neutrophils % 92.0 H Platelet Count 237 Platelet Estimate PLT APPEAR ADEQUATE Red Blood Count 2.82 L Red Cell Distribution Width 16.1 H White Blood Count 13.0 #H Anion Gap 18 H Blood Urea Nitrogen 69 H Calcium Level 8.6 Carbon Dioxide Level 29 Chloride Level 111 H Creatinine 1.42 H Erythrocyte Sedimentation Rate 46 H Glucose Level 128 Lactic Acid Level 0.8 Potassium Level 3.2 L Sodium Level 155 H Thyroid Stimulating Hormone (TSH) 0.099 L Bedside Glucose 128 Medications Medications Current Medications Brimonidine Tartrate (Alphagan 0.2%) 1 drop Q8 BOTH EYES Last administered on 03/16/16at 05:25; Admin Dose 1 DROP; Start 03/01/16 at 06:00 Latanoprost (Xalatan) 1 drop QHS BOTH EYES Last administered on 03/15/16 22: 19; Admin Dose 1 DROP; Start 03/01/16 at 21:00 Mycophenolate Mofetil (Cellcept) 500 mg BID PO Last administered on 03/14/16 08:44; Admin Dose 500 MG; Start 03/01/16 at 09:00 Acetaminophen (Tylenol Tab) 650 mg Q4H PRN PO pain/fever Last administered on 03/08/16at 12:49; Admin Dose 650 MG; Start 03/01/16 at 01:00 Ondansetron HCl (Zofran Inj) 4 mg Q4H PRN IV nausea Last administered on at 02:23; Admin Dose 4 MG; Start 03/01/16 at 01:00 Morphine Sulfate (morphine) 2 mg Q2H PRN IV pain Last administered on at 11:42; Admin Dose 2 MG; Start 03/01/16 at 01:00 Miscellaneous Information 1 ea NOTE XX ; Start 03/01/16 at 02:00 Glucose (Glutose) 15 gm Q15M PRN PO DECREASED GLUCOSE; Start 03/01/16 at 02:00 Glucose (Glutose) 22.5 gm Q15M PRN PO DECREASED GLUCOSE; Start 03/01/16 at 02: 00 Dextrose (D50w Syringe) 25 ml Q15M PRN IV DECREASED GLUCOSE Last administered on 03/13/16at 13:36; Admin Dose 25 ML; Start 03/01/16 at 02:00 Dextrose (D50w Syringe) 50 ml Q15M PRN IV DECREASED GLUCOSE Last administered on 03/13/16at 12:30; Admin Dose 50 ML; Start 03/01/16 at 02:00 Glucagon (Glucagen) 1 mg Q15M PRN IM DECREASED GLUCOSE; Start 03/01/16 at 02: 00 Glucose (Glutose) 15 gm Q15M PRN BUCCAL DECREASED GLUCOSE; Start 03/01/16 at 02:00 Diagnostic Test (Pha) (Accucheck) 1 ea 02 XX Last administered on 03/13/16at 02 :00; Admin Dose 1 EA; Start 03/02/16 at 02:00 Bisacodyl (Dulcolax Supp) 10 mg DAILY PRN [place] CONSTIPATION Last administered on 03/08/16 23:47; Admin Dose 10 MG; Start 03/03/16 at 11:30 Clotrimazole (Lotrimin Cr) 1 applic BID TOP Last administered on 03/15/16 21: 50; Admin Dose 1 APPLIC; Start 03/03/16 at 13:30 Insulin Glargine (Lantus) 40 unit QHS SC Last administered on 03/15/16 21:52 ; Admin Dose 40 UNIT; Start 03/04/16 at 21:00 Docusate Sodium (Colace) 100 mg BID PO Last administered on 03/14/16 08:45; Admin Dose 100 MG; Start 03/05/16 at 10:30 Sodium Chloride (Deep Sea) 1 spray Q4H PRN NASAL NASAL CONGESTION; Start 03/07 at 17:30 Ondansetron HCl (Zofran Inj) 4 mg Q4H PRN IV NAUSEA AND/OR VOMITING; Start at 23:30 Pantoprazole (Protonix Iv) 40 mg BID@06,18 IV Last administered on 03/16/16 05:24; Admin Dose 40 MG; Start 03/10/16 at 06:00 Fentanyl (Duragesic 75 Mcg/Hr Patch) 1 patch Q72H TRANSDERM Last administered on 03/14/16at 10:31; Admin Dose 1 PATCH; Start 03/11/16 at 09:00 Gabapentin (Neurontin) 300 mg Q8 GTB Last administered on 03/14/16 14:46; Admin Dose 300 MG; Start 03/13/16 at 06:00 Lorazepam (Ativan) 0.5 mg HS PRN PO AGITATION/ANXIETY; Start 03/12/16 at 23:00 Methylprednisolone Sodium Succinate (Solu-Medrol) 30 mg DAILY IV Last administered on 03/15/16 09:06; Admin Dose 30 MG; Start 03/13/16 at 09:30 Lactulose 20 gm 20 gm Q6 PO Last administered on 03/14/16 12:19; Admin Dose 20 GM; Start 03/13/16 at 18:00 Meropenem/Sodium Chloride (Merrem/NS) 100 ml @ 200 mls/hr Q12 IVPB Last administered on 12/29/16at 22:19; Admin Dose 200 MLS/HR; Start 03/13/16 at 17: 00 Hydralazine HCl (Apresoline) 10 mg Q6H PRN IV SBP>160; Start 03/14/16 at 22:00 Clonidine HCl (Catapres-Tts 2 Patch) 1 patch Q7D TRANSDERM Last administered on 03/14/16at 22:00; Admin Dose 1 PATCH; Start 03/14/16 at 22:00 Diltiazem HCl (Cardizem Iv) 10 mg Q4 IV Last administered on 03/16/16at 05:24; Admin Dose 10 MG; Start 03/15/16 at 01:00 Lubiprostone 24 mcg 24 mcg BID PO ; Start 03/15/16 at 16:00 Potassium Chloride/Sodium Chloride (1/2 NS + KCl 20 Meq) 1,000 ml @ 75 mls/hr [id number] IV Last administered on 03/16/16at 02:56; Admin Dose 75 MLS/HR; Start 03/16/16 at 01:30 TR AMES Mar 16, 2016 08:00
[2016-03-16 08:11] LABS: AADO2 Arterial 69.6 mmHg (7.0-24.0); Allen Test ACCEPTAB; Arterial Base Excess 2.3 mmol/L (-3.0-3); Arterial COHb 0.3 % (0.0-3.0); Arterial Fraction of Oxyhgb 94.7 % (93.0-99.0); Arterial HCO3 26.9 mmol/L (22.0-26.0); Arterial MetHb 0 % (0.0-1.5); Arterial Total Hemglobin 9.4 g/dl (12.0-18.0); MODE NASAL CANNULA
[2016-03-16] MEDS: LUBIPROSTONE 24 MCG CAP PO SCH ×2 (09:00→21:00)
[2016-03-16] MEDS: MYCOPHENOLATE 250 MG CAP PO SCH ×2 (09:00→21:00)
[2016-03-16] MEDS: DOCUSATE SODIUM 100 MG CAP PO SCH ×2 (09:00→21:00)
--- NOTE | 2016-03-16 09:04 | RADRPT ---
PROCEDURE: XR Chest. CLINICAL INDICATION: Shortness of breath. TECHNIQUE: Single frontal view. COMPARISON: 03/15/2016. FINDINGS: The left arm PICC line is in satisfactory position. There is mild atelectasis at the lung bases wit h left worse than right, unchanged. The lungs are otherwise clear. The heart is enlarged. There is calcification in the aorta consistent with atherosclerosis. There is no right pleural effusion. There is a small left pleural effusion. There is no pneumothorax. IMPRESSION: 1. No change from 03/15/2016. RPTAT: QQ .Jim Calloway MD, MD Date Time Electronically viewed and signed by .Jim Calloway MD, MD on 03/16/2016 09:04 .R/
[2016-03-16] MEDS: METHYLPREDNISOLONE 40 MG INJ IV SCH (09:10)
[2016-03-16] MEDS: CLOTRIMAZOLE 1% 30 GM CR TOP SCH ×2 (09:15→21:00)
[2016-03-16 09:57] LABS: HEMATOCRIT 22.8 % (37.0-47.0); HEMOGLOBIN 7.3 g/dl (12.0-16.0); MEAN CORPUSCULAR HEMOGLOBIN 26.1 pg (29.0-33.0); MEAN CORPUSCULAR HGB CONC 32.1 g/dl (32.0-37.0); MEAN CORPUSCULAR VOLUME 81.3 fl (82.0-101.0); MEAN PLATELET VOLUME 7.8 fl (7.4-10.4); PLATELET COUNT 263 10^3/UL (140-440); UNCORRECTED WBC 14.4 10^3/ul (4.8-10.8); WHITE BLOOD COUNT 14.4 10^3/ul (4.8-10.8)
[2016-03-16 09:59] LABS: INR 1.1; PROTIME 14.2 Sec (12.2-14.2); PT RATIO 1.1
[2016-03-16 10:00] LABS: PARTIAL THROMBOPLASTIN TIME 28.1 Sec (25.0-35.0)
[2016-03-16 10:03] LABS: CONDITION 1; LH ANALYZER COMMENTS 1
[2016-03-16] MEDS: hydrALAzine 20 MG INJ IV PRN (10:18)
--- NOTE | 2016-03-16 10:29 | CONS ---
Date/Time of Note Date/Time of Note DATE: 03/16/16 TIME: 10:27 Consult Date/Type/Reason Admit Date/Time Feb 29, 2016 at 18:54 Type of Consultation: pulmonary Subjective Less resp distress today Still with moderate upper airway secretions. Remains in atrial fibrillation with rapid ventricular rate heart rate in the 130s Objective Vital Signs Date Time Temp Pulse Resp B/P Pulse Ox O2 Delivery O2 Flow Rate FiO2 03/16/16 08:13 124 19 95 21 03/16/16 07:00 154/90 Nasal Cannula 2.0 03/16/16 04:00 97.8 Intake and Output 03/15/16 03/15/16 03/16/16 15:00 23:00 07:00 Intake Total 650 ml 700 ml 550 ml Output Total 650 ml 460 ml 410 ml Balance 0 ml 240 ml 140 ml GENERAL: Frail elderly lady with audible rales in the upper airway VITAL SIGNS: per chart NECK: Supple. No JVD or lymphadenopathy. CARDIAC EXAM: S1, S2. No added sounds or murmurs. CHEST: Diminished air entry bilaterally with rales ABDOMEN: Soft, nontender. No guarding or rebound. EXTREMITIES: No cyanosis, clubbing edema +1 NEUROLOGIC: Generalized weakness. Results/Medications Result Diagram: 03/16/16 0940 03/15/16 2310 Results 24 hrs Laboratory Tests Test 03/15/16 11:04 03/15/16 12:14 03/15/16 18:06 03/15/16 21:50 Bedside Glucose 247 H 223 H 198 138 Test 03/15/16 22:40 03/15/16 23:10 03/16/16 02:00 03/16/16 07:00 Blood Morphology Comment Hematocrit 22.8 L Hemoglobin 7.3 L Lymphocytes # 0.8 Lymphocytes % 6.0 L Mean Corpuscular Hemoglobin 25.9 L Mean Corpuscular Hemoglobin Concent 32.0 Mean Corpuscular Volume 81.0 L Mean Platelet Volume 7.8 Monocytes # 0.3 Monocytes % 2.0 Neutrophils # 12.0 H Neutrophils % 92.0 H Platelet Count 237 Platelet Estimate PLT APPEAR ADEQUATE Red Blood Count 2.82 L Red Cell Distribution Width 16.1 H White Blood Count 13.0 #H Anion Gap 18 H Blood Urea Nitrogen 69 H Calcium Level 8.6 Carbon Dioxide Level 29 Chloride Level 111 H Creatinine 1.42 H Erythrocyte Sedimentation Rate 46 H Glucose Level 128 Lactic Acid Level 0.8 Potassium Level 3.2 L Sodium Level 155 H Thyroid Stimulating Hormone (TSH) 0.099 L Bedside Glucose 128 Arterial Blood HCO3 26.9 H Arterial Blood Base Excess 2.3 Arterial Blood Oxygen Saturation 95.0 David Test ACCEPTAB Arterial Blood Gas Puncture Site Left Radial Arterial Blood Carboxyhemoglobin 0.3 Arterial Blood Date Drawn 03/16/2016 7:30:06 AM Arterial Blood Methemoglobin 0 Arterial Blood pCO2 (Temp correct) 41.6 Arterial Blood pH (Temp corrected) 7.428 Arterial Blood pO2 (Temp corrected) 73.7 L Blood Gas A-a O2 Differential 69.6 H Blood Gas Modality NASAL CANNULA Blood Gas Notified Time 03/16/2016 8:11:47 AM Blood Gas Notified Whom JLD Blood Gas Specimen Source Blood arterial Blood Gas Temperature 37.0 FiO2 27.0 Oxyhemoglobin Percent 94.7 Total Hemoglobin 9.4 L Test 03/16/16 08:46 03/16/16 09:40 Bedside Glucose 94 Activated Partial Thromboplast Time 28.1 Blood Morphology Comment Hematocrit 22.8 L Hemoglobin 7.3 L INR International Normalized Ratio 1.10 Mean Corpuscular Hemoglobin 26.1 L Mean Corpuscular Hemoglobin Concent 32.1 Mean Corpuscular Volume 81.3 L Mean Platelet Volume 7.8 Platelet Count 263 Prothrombin Time 14.2 Prothrombin Time Ratio 1.1 Red Blood Count 2.80 L Red Cell Distribution Width 16.0 H White Blood Count 14.4 H Medications Current Medications Brimonidine Tartrate (Alphagan 0.2%) 1 drop Q8 BOTH EYES Last administered on 03/16/16at 05:25; Admin Dose 1 DROP; Start 03/01/16 at 06:00 Latanoprost (Xalatan) 1 drop QHS BOTH EYES Last administered on 03/15/16 22: 19; Admin Dose 1 DROP; Start 03/01/16 at 21:00 Mycophenolate Mofetil (Cellcept) 500 mg BID PO Last administered on 03/14/16at 08:44; Admin Dose 500 MG; Start 03/01/16 at 09:00 Acetaminophen (Tylenol Tab) 650 mg Q4H PRN PO pain/fever Last administered on 03/08/16at 12:49; Admin Dose 650 MG; Start 03/01/16 at 01:00 Ondansetron HCl (Zofran Inj) 4 mg Q4H PRN IV nausea Last administered on at 02:23; Admin Dose 4 MG; Start 03/01/16 at 01:00 Morphine Sulfate (morphine) 2 mg Q2H PRN IV pain Last administered on at 11:42; Admin Dose 2 MG; Start 03/01/16 at 01:00 Miscellaneous Information 1 ea NOTE XX ; Start 03/01/16 at 02:00 Glucose (Glutose) 15 gm Q15M PRN PO DECREASED GLUCOSE; Start 03/01/16 at 02:00 Glucose (Glutose) 22.5 gm Q15M PRN PO DECREASED GLUCOSE; Start 03/01/16 at 02: 00 Dextrose (D50w Syringe) 25 ml Q15M PRN IV DECREASED GLUCOSE Last administered on 03/13/16at 13:36; Admin Dose 25 ML; Start 03/01/16 at 02:00 Dextrose (D50w Syringe) 50 ml Q15M PRN IV DECREASED GLUCOSE Last administered on 03/13/16at 12:30; Admin Dose 50 ML; Start 03/01/16 at 02:00 Glucagon (Glucagen) 1 mg Q15M PRN IM DECREASED GLUCOSE; Start 03/01/16 at 02: 00 Glucose (Glutose) 15 gm Q15M PRN BUCCAL DECREASED GLUCOSE; Start 03/01/16 at 02:00 Diagnostic Test (Pha) (Accucheck) 1 ea 02 XX Last administered on 03/13/16at 02 :00; Admin Dose 1 EA; Start 03/02/16 at 02:00 Bisacodyl (Dulcolax Supp) 10 mg DAILY PRN [place] CONSTIPATION Last administered on 03/08/16at 23:47; Admin Dose 10 MG; Start 03/03/16 at 11:30 Clotrimazole (Lotrimin Cr) 1 applic BID TOP Last administered on 03/16/16at 09: 15; Admin Dose 1 APPLIC; Start 03/03/16 at 13:30 Insulin Glargine (Lantus) 40 unit QHS SC Last administered on 03/15/16at 21:52 ; Admin Dose 40 UNIT; Start 03/04/16 at 21:00 Docusate Sodium (Colace) 100 mg BID PO Last administered on 03/14/16 08:45; Admin Dose 100 MG; Start 03/05/16 at 10:30 Sodium Chloride (Deep Sea) 1 spray Q4H PRN NASAL NASAL CONGESTION; Start 03/07 at 17:30 Ondansetron HCl (Zofran Inj) 4 mg Q4H PRN IV NAUSEA AND/OR VOMITING; Start at 23:30 Pantoprazole (Protonix Iv) 40 mg BID@06,18 IV Last administered on 03/16/16 05:24; Admin Dose 40 MG; Start 03/10/16 at 06:00 Fentanyl (Duragesic 75 Mcg/Hr Patch) 1 patch Q72H TRANSDERM Last administered on 03/14/16 10:31; Admin Dose 1 PATCH; Start 03/11/16 at 09:00 Gabapentin (Neurontin) 300 mg Q8 GTB Last administered on 03/14/16 14:46; Admin Dose 300 MG; Start 03/13/16 at 06:00 Lorazepam (Ativan) 0.5 mg HS PRN PO AGITATION/ANXIETY; Start 03/12/16 at 23:00 Methylprednisolone Sodium Succinate (Solu-Medrol) 30 mg DAILY IV Last administered on 03/16/16 09:10; Admin Dose 30 MG; Start 03/13/16 at 09:30 Lactulose 20 gm 20 gm Q6 PO Last administered on 03/14/16 12:19; Admin Dose 20 GM; Start 03/13/16 at 18:00 Meropenem/Sodium Chloride (Merrem/NS) 100 ml @ 200 mls/hr Q12 IVPB Last administered on 03/15/16 22:19; Admin Dose 200 MLS/HR; Start 03/13/16 at 17: 00 Hydralazine HCl (Apresoline) 10 mg Q6H PRN IV SBP>160 Last administered on 10:18; Admin Dose 10 MG; Start 03/14/16 at 22:00 Clonidine HCl (Catapres-Tts 2 Patch) 1 patch Q7D TRANSDERM Last administered on 03/14/16 22:00; Admin Dose 1 PATCH; Start 03/14/16 at 22:00 Diltiazem HCl (Cardizem Iv) 10 mg Q4 IV Last administered on 03/16/16 09:04; Admin Dose 10 MG; Start 03/15/16 at 01:00 Lubiprostone 24 mcg 24 mcg BID PO ; Start 03/15/16 at 16:00 Potassium Chloride/Sodium Chloride (1/2 NS + KCl 20 Meq) 1,000 ml @ 75 mls/hr [id number] IV Last administered on 03/16/16at 02:56; Admin Dose 75 MLS/HR; Start 03/16/16 at 01:30 Assessment/Plan Chief Complaint/Hosp Course IMPRESSION: An 85-year-old female with: 1. Acute hypoxemic respiratory failure. Significant aspiration component significant neuromuscular weakness 2. Chronic obstructive pulmonary disease exacerbation. 3. Bronchitis. As above persistent leukocytosis 4. Metabolic acidosis, clinically improved worsening renal function possibly secondary to diuretics 5. History of diabetes. Poor Glycemic control exacerbated by steroids 6. History of hypertension. 7. Atrial fibrillation with rapid ventricular rate 8. Coronary artery disease. 9. Anemia likely possibly dilutional questionable GI loss RECOMMENDATIONS: 1. Deep suctioning. Aggressive pulmonary toilet 2. Supplemental oxygen 3. Antibiotics. 4. Bronchodilators. 5. Noninvasive positive pressure ventilation if needed. 6. Speech therapy recommendations continue aspiration precautions 7. Rate control per cardiology will likely require diltiazem drip Prognosis guarded. I had an extensive discussion with patient's son who is a physician at bedside. Explained poor prognosis. I explained the need for intubation and mechanical ventilation for bronchoscopy and probably for upper GI endoscopy. Patient's family understand that intubation may result in patient never coming off mechanical ventilation. At this point they wish or aggressive measures including short-term intubation and mechanical ventilation if possible. Problems: SHIVA PERES MD, [facility] Mar 16, 2016 10:29
[2016-03-16] MEDS: DILTIAZEM-D5W 125MG/125ML DRIP 125 ML IV SCH ×2 (11:08→19:01)
[2016-03-16 11:59] LABS: LYMPHOCYTES # 0.6 10^3/ul (0.8-2.9); MONOCYTE # 0.6 10^3/ul (0.3-0.9); NEUTROPHIL # 13.2 10^3/ul (1.6-7.5)
[2016-03-16] MEDS: MEROPENEM 500 MG in SOD CHLORIDE 0.9% 100 ML IVPB SCH ×2 (12:59→23:30)
--- NOTE | 2016-03-16 15:18 | PN ---
DATE: 03/16/2016 SUBJECTIVE: This is an infectious disease progress note. No acute events overnight. The patient i s awake, lying comfortably in bed. She is congested and unable to clear her secretions. Her son is at bedside. No fevers. She is tachycardic with a heart rate of 134, temperature 97.8, respiration s 24, blood pressure 147/69, saturation 100 on 1 liter nasal cannula. WBC today 14.4 with H and H 7.3 and 22.8, platelets 362, neutrophils 92, BUN 69, creatinine 1.42. S odium 155, potassium 3.2. MICROBIOLOGY: Urine culture growing E. coli, multidrug resistant, sensitive to tobramycin, cefotaxi me, Ancef, amikacin. Sputum culture also growing E. coli. ANTIMICROBIALS: The patient is on meropenem, status post Levaquin. She is also getting Solu-Medrol . INDWELLINGS: Tong catheter. PICC line in her left upper extremity placed on 03/15/2016. PHYSICAL EXAMINATION: GENERAL: This is an obese, ill-appearing, fragile, elderly woman who is awake, in no distress. HEENT: Head atraumatic, normocephalic. Sclerae anicteric. Buccal mucosa dry. NECK: Obese. CHEST: Rise symmetrical. Breath sounds with bilateral crackles throughout the lung rodriguez, diminis hed to bases. HEART: S1, S2, tachycardic. ABDOMEN: Obese, soft, bowel tones present. EXTREMITIES: Without cyanosis. ASSESSMENT: 1. Sepsis. 2. Aspiration pneumonia and chronic obstructive pulmonary disease exacerbation. 3. Multidrug resistant Escherichia coli urinary tract infection. 4. Acute renal failure. 5. Paroxysmal atrial fibrillation. 6. Diabetes. 7. Anemia. 8. History of pemphigoid disease. 9. Dysphagia. PLAN: The patient remains unchanged. Covered with appropriate antibiotics. Her white blood cell c ount tracing down. She is being followed by multiple consultants. Continue present care, anti-aspi ration precautions and aggressive pulmonary toilet. Above was discussed with family at bedside. Dictated By: LEÓN PAK [employer] PROGRAM COORDINATOR for MIMI MOSER/DARIO Conf#: [id number] DID#: [id number]
--- NOTE | 2016-03-16 16:35 | PN ---
Date/Time of Note Date/Time of Note DATE: 03/16/16 TIME: 16:22 Assessment/Plan VTE Prophylaxis VTE Prophylaxis Intervention: SCD's Lines/Catheters IV Catheter Type (from Nrsg): PICC Line Central line still needed: Yes (Immobile, critical care patient) Urinary Cath still in place: Yes Reason Cath still needed: other (indicate) (Immobile, critical care patient) Assessment/Plan Assessment/Plan [facility] 1. Hospital day 16 for this 85 yo woman with continued upper respiratory congestion. Transferred yesterday to ICU for increased work of breathing, but seems more stable today from a respiratory standpoint. pCXR this morning is unchanged, with mild bibasilar atelectasis and left pleural effusion. No focal infiltrates or pulmonary vascular congestion. Appears euvolemic. Echo showed normal LV function, but with elevated pulmonary artery pressures. WBC stable at 14.4k/ul, without fever or hypotension. Patient is immunosuppressed on Mycophenolate. * Continue meropenem. * Continued on oxygen * Regular suctioning * DVT prophylaxis with SCDs (concern for GI bleeding precludes anticoagulation) * PICC line successfully placed. 2. Heme-positive, though no bowel movements today. Constipation improved overall, likely secondary to her hyperglycemia and Fentanyl patch use. KUB showed colon full of fecal matter, and CT abd/pelvis showed no evidence of abdominopelvic mass, lymphadenopathy or focal acute inflammatory pathology. * PEG placement pending resolution of the tachycardia issue, according to Dr. Zuniga. GI consult by Dr. Vasquez was 13 days ago, and I left a message for him yesterday regarding re-consult to explore upper endoscopy and/or J-G tube placement. * Monitor CBC * Patient remains NPO; very thirsty 3. Tachycardia with atrial fibrillation. Does not appear pre-renal. * Start Cardizem drip. * Hold Eliquis given question of GI bleeding 4. Acute Respiratory failure, secondary to bronchitis/URI/pneumonia. Reported history of asthma. Immunosuppressed with CellCept chronically * Continue nebulizers * Solu-medrol currently tapered to 30 mg daily 5. CKD: Was at baseline of 1.35 on admission, then worsened to 3.12 last week, now roughly back to baseline. 6. Anemia, acute with Hb 7.3 g/dl (Hct 22.8%) today * Transfusion of 2u PRBC 6. Diabetes. Blood sugars are much-improved today. * Continue daily Lantus insulin. * Continue Accu-Checks and sliding scale. 7. Hypertension. Management of Clonidine, Norvasc, and Cardizem as noted above. 8. 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 9. Chronic Pain, on fentanyl patch. Generally chronic low back pain benefits from more conservative measures, including PT, acupuncture, non-narcotic analgesics. * down to 75 mcg topically. 10 Nutrition: * NPO now * Anticipating further GI workup 11. Prophylaxis: Holding Eliquis (given for atrial fibrillation) due to current concerns about GI bleeding. SCDs in place instead. Protonix for GI prophylaxis 12. Disposition: Home once able to breathe and eat comfortably. Joey Gonsalez MD PhD [phone] Subjective 24 Hr Interval Summary Free Text/Dictation She seems more anxious today, verbalizing more than previously. I spoke with he son, Dr. Patricia Michaelalesha ([phone]), who was dismayed that there is a delay in PEG placement (due to tachycardia, on a cardizem drip). Complaining of some abdominal pain. Exam/Review of Systems Vital Signs Vitals Vital Signs Date Time Temp Pulse Resp B/P Pulse Ox O2 Delivery O2 Flow Rate FiO2 03/16/16 13:35 142 24 100 Nasal Cannula 1.0 03/16/16 13:30 170/82 03/16/16 08:13 21 03/16/16 04:00 97.8 Intake and Output 03/15/16 03/15/16 03/16/16 15:00 23:00 07:00 Intake Total 650 ml 700 ml 550 ml Output Total 650 ml 460 ml 410 ml Balance 0 ml 240 ml 140 ml Exam Constitutional: Awake, more verbal today, heavyset, tired-appearing, but breathing comfortably on 2L per NC Respiratory: Mild upper respiratory rhonchi, with hypoventillatory bases, but otherwise clear to auscultation with good air movement Cardiovascular: Irregular rhythm, tachycardic to 140s, symmetric radial pulses Gastrointestinal: bowel sounds positive, soft, trace tenderness, moderate tympany. Extremities: Symmetric pulses, stasis changes with induration around the proximal IT band of both hips, and hyperpigmentation of both distal calves. No cords in the calves. Neurological: QUILT SEWER II-XII intact, moving all extremities. Somnolent and very lethargic-appearing. Results Result Diagram: 03/16/16 0940 03/15/16 2310 Results 24 hrs Laboratory Tests Test 03/15/16 18:06 03/15/16 21:50 03/15/16 22:40 03/15/16 23:10 Bedside Glucose 198 138 Blood Morphology Comment Hematocrit 22.8 L Hemoglobin 7.3 L Lymphocytes # 0.8 Lymphocytes % 6.0 L Mean Corpuscular Hemoglobin 25.9 L Mean Corpuscular Hemoglobin Concent 32.0 Mean Corpuscular Volume 81.0 L Mean Platelet Volume 7.8 Monocytes # 0.3 Monocytes % 2.0 Neutrophils # 12.0 H Neutrophils % 92.0 H Platelet Count 237 Platelet Estimate PLT APPEAR ADEQUATE Red Blood Count 2.82 L Red Cell Distribution Width 16.1 H White Blood Count 13.0 #H Anion Gap 18 H Blood Urea Nitrogen 69 H Calcium Level 8.6 Carbon Dioxide Level 29 Chloride Level 111 H Creatinine 1.42 H Erythrocyte Sedimentation Rate 46 H Glucose Level 128 Lactic Acid Level 0.8 Potassium Level 3.2 L Sodium Level 155 H Thyroid Stimulating Hormone (TSH) 0.099 L Test 03/16/16 02:00 03/16/16 07:00 03/16/16 08:46 03/16/16 09:40 Bedside Glucose 128 94 Arterial Blood HCO3 26.9 H Arterial Blood Base Excess 2.3 Arterial Blood Oxygen Saturation 95.0 David Test ACCEPTAB Arterial Blood Gas Puncture Site Left Radial Arterial Blood Carboxyhemoglobin 0.3 Arterial Blood Date Drawn 03/16/2016 7:30:06 AM Arterial Blood Methemoglobin 0 Arterial Blood pCO2 (Temp correct) 41.6 Arterial Blood pH (Temp corrected) 7.428 Arterial Blood pO2 (Temp corrected) 73.7 L Blood Gas A-a O2 Differential 69.6 H Blood Gas Modality NASAL CANNULA Blood Gas Notified Time 03/16/2016 8:11:47 AM Blood Gas Notified Whom JLD Blood Gas Specimen Source Blood arterial Blood Gas Temperature 37.0 FiO2 27.0 Oxyhemoglobin Percent 94.7 Total Hemoglobin 9.4 L Activated Partial Thromboplast Time 28.1 Blood Morphology Comment Hematocrit 22.8 L Hemoglobin 7.3 L INR International Normalized Ratio 1.10 Lymphocytes # 0.6 L Lymphocytes % 4.0 L Mean Corpuscular Hemoglobin 26.1 L Mean Corpuscular Hemoglobin Concent 32.1 Mean Corpuscular Volume 81.3 L Mean Platelet Volume 7.8 Monocytes # 0.6 Monocytes % 4.0 Neutrophils # 13.2 H Neutrophils % 92.0 H Platelet Count 263 Prothrombin Time 14.2 Prothrombin Time Ratio 1.1 Red Blood Count 2.80 L Red Cell Distribution Width 16.0 H White Blood Count 14.4 H Test 03/16/16 11:07 03/16/16 14:00 B-Type Natriuretic Peptide 32982 H Bedside Glucose 162 Medications Medications Current Medications Brimonidine Tartrate (Alphagan 0.2%) 1 drop Q8 BOTH EYES Last administered on 03/16/16at 05:25; Admin Dose 1 DROP; Start 03/01/16 at 06:00 Latanoprost (Xalatan) 1 drop QHS BOTH EYES Last administered on 03/15/16at 22: 19; Admin Dose 1 DROP; Start 03/01/16 at 21:00 Mycophenolate Mofetil (Cellcept) 500 mg BID PO Last administered on 03/14/16at 08:44; Admin Dose 500 MG; Start 03/01/16 at 09:00 Acetaminophen (Tylenol Tab) 650 mg Q4H PRN PO pain/fever Last administered on 03/08/16at 12:49; Admin Dose 650 MG; Start 03/01/16 at 01:00 Ondansetron HCl (Zofran Inj) 4 mg Q4H PRN IV nausea Last administered on at 02:23; Admin Dose 4 MG; Start 03/01/16 at 01:00 Morphine Sulfate (morphine) 2 mg Q2H PRN IV pain Last administered on at 11:42; Admin Dose 2 MG; Start 03/01/16 at 01:00 Miscellaneous Information 1 ea NOTE XX ; Start 03/01/16 at 02:00 Glucose (Glutose) 15 gm Q15M PRN PO DECREASED GLUCOSE; Start 03/01/16 at 02:00 Glucose (Glutose) 22.5 gm Q15M PRN PO DECREASED GLUCOSE; Start 03/01/16 at 02: 00 Dextrose (D50w Syringe) 25 ml Q15M PRN IV DECREASED GLUCOSE Last administered on 03/13/16 13:36; Admin Dose 25 ML; Start 03/01/16 at 02:00 Dextrose (D50w Syringe) 50 ml Q15M PRN IV DECREASED GLUCOSE Last administered on 03/13/16 12:30; Admin Dose 50 ML; Start 03/01/16 at 02:00 Glucagon (Glucagen) 1 mg Q15M PRN IM DECREASED GLUCOSE; Start 03/01/16 at 02: 00 Glucose (Glutose) 15 gm Q15M PRN BUCCAL DECREASED GLUCOSE; Start 03/01/16 at 02:00 Diagnostic Test (Pha) (Accucheck) 1 ea 02 XX Last administered on 03/13/16 02 :00; Admin Dose 1 EA; Start 03/02/16 at 02:00 Bisacodyl (Dulcolax Supp) 10 mg DAILY PRN [place] CONSTIPATION Last administered on 03/08/16 23:47; Admin Dose 10 MG; Start 03/03/16 at 11:30 Clotrimazole (Lotrimin Cr) 1 applic BID TOP Last administered on 03/16/16 09: 15; Admin Dose 1 APPLIC; Start 03/03/16 at 13:30 Insulin Glargine (Lantus) 40 unit QHS SC Last administered on 03/15/16 21:52 ; Admin Dose 40 UNIT; Start 03/04/16 at 21:00 Docusate Sodium (Colace) 100 mg BID PO Last administered on 03/14/16 08:45; Admin Dose 100 MG; Start 03/05/16 at 10:30 Sodium Chloride (Deep Sea) 1 spray Q4H PRN NASAL NASAL CONGESTION; Start 03/07 at 17:30 Ondansetron HCl (Zofran Inj) 4 mg Q4H PRN IV NAUSEA AND/OR VOMITING; Start at 23:30 Pantoprazole (Protonix Iv) 40 mg BID@06,18 IV Last administered on 03/16/16 05:24; Admin Dose 40 MG; Start 03/10/16 at 06:00 Fentanyl (Duragesic 75 Mcg/Hr Patch) 1 patch Q72H TRANSDERM Last administered on 03/14/16 10:31; Admin Dose 1 PATCH; Start 03/11/16 at 09:00 Gabapentin (Neurontin) 300 mg Q8 GTB Last administered on 03/14/16 14:46; Admin Dose 300 MG; Start 03/13/16 at 06:00 Lorazepam (Ativan) 0.5 mg HS PRN PO AGITATION/ANXIETY; Start 03/12/16 at 23:00 Methylprednisolone Sodium Succinate (Solu-Medrol) 30 mg DAILY IV Last administered on 03/16/16 09:10; Admin Dose 30 MG; Start 03/13/16 at 09:30 Lactulose 20 gm 20 gm Q6 PO Last administered on 03/14/16 12:19; Admin Dose 20 GM; Start 03/13/16 at 18:00 Meropenem/Sodium Chloride (Merrem/NS) 100 ml @ 200 mls/hr Q12 IVPB Last administered on 03/16/16 12:59; Admin Dose 200 MLS/HR; Start 03/13/16 at 17: 00 Hydralazine HCl (Apresoline) 10 mg Q6H PRN IV SBP>160 Last administered on 10:18; Admin Dose 10 MG; Start 03/14/16 at 22:00 Clonidine HCl (Catapres-Tts 2 Patch) 1 patch Q7D TRANSDERM Last administered on 03/14/16 22:00; Admin Dose 1 PATCH; Start 03/14/16 at 22:00 Diltiazem HCl (Cardizem Iv) 10 mg Q4 IV Last administered on 03/16/16 09:04; Admin Dose 10 MG; Start 03/15/16 at 01:00 Lubiprostone 24 mcg 24 mcg BID PO ; Start 03/15/16 at 16:00 Potassium Chloride/Sodium Chloride 1,000 ml @ 75 mls/hr [id number] IV Last administered on 03/16/16 02:56; Admin Dose 75 MLS/HR; Start 03/16/16 at 01:30 Diltiazem HCl (Cardizem-D5W 125 Mg/125 ml Drip) 125 ml @ 5 mls/hr TITRATE IV Last administered on 03/16/16 11:08; Admin Dose 5 MLS/HR; Start 03/16/16 at 10:30 TRACI GONSALEZ M.D. Mar 16, 2016 16:33
[2016-03-16 18:09] LABS: POTASSIUM 3.7 mmol/L (3.5-5.1)
[2016-03-16 18:12] LABS: CREATININE 1.23 mg/dl (0.44-1.00)
[2016-03-16] MEDS: INSULIN GLARGINE [LANtus] 3 ML PEN SC SCH (20:41)
[2016-03-16] MEDS: LATANOPROST 0.005% 2.5 ML OPH BOTH EYES SCH (20:42)
[2016-03-16] MEDS: morphine 2 MG INJ IV PRN (21:24)
[2016-03-16] MEDS ORDERED: FUROSEMIDE 40 MG INJ IV ONE (21:30)
[2016-03-16] MEDS: LORAZEPAM 2 MG INJ IV PRN (23:25)
[2016-03-16] MEDS: DEXTROSE 5%-0.45% NACL 1,000 ML IV SCH (23:37)
[2016-03-17] VITALS (47 sets, daily range): BP systolic 86–198; BP diastolic 41–136; PULSE 66–148; RESP 14–32
[2016-03-17] MEDS: DILTIAZEM 25 MG INJ IV SCH ×6 (00:30→21:21)
[2016-03-17] MEDS: ACCUCHECK AT 2AM (Patients on SS coverage) XX SCH (01:32)
[2016-03-17] MEDS: ALBUTEROL/IPRATROPIUM (NEB) 3 ML AMP HHN SCH ×4 (01:39→21:01)
[2016-03-17] MEDS: DILTIAZEM-D5W 125MG/125ML DRIP 125 ML IV SCH (02:43)
[2016-03-17 04:28] LABS: CONDITION 1; HEMATOCRIT 31.5 % (37.0-47.0); HEMOGLOBIN 10.3 g/dl (12.0-16.0); LH ANALYZER COMMENTS 1; LYMPHOCYTES # 0.3 10^3/ul (0.8-2.9); LYMPHOCYTES % 2.2 % (15.0-51.0); MEAN CORPUSCULAR HEMOGLOBIN 27.1 pg (29.0-33.0); MEAN CORPUSCULAR HGB CONC 32.6 g/dl (32.0-37.0); MEAN CORPUSCULAR VOLUME 83.1 fl (82.0-101.0); MEAN PLATELET VOLUME 7.1 fl (7.4-10.4); MONOCYTE # 0.5 10^3/ul (0.3-0.9); MONOCYTES % 3.4 % (0.0-11.0); NEUTROPHIL # 13.6 10^3/ul (1.6-7.5); NEUTROPHILS % 94.4 % (39.0-77.0); PLATELET COUNT 206 10^3/UL (140-440); RED BLOOD COUNT 3.79 10^6/ul (4.20-5.40); RED CELL DISTRIBUTION WIDTH 15.7 % (11.5-14.5); UNCORRECTED WBC 14.4 10^3/ul (4.8-10.8); WHITE BLOOD COUNT 14.4 10^3/ul (4.8-10.8)
[2016-03-17 04:40] LABS: ALBUMIN 2.9 g/dl (3.3-4.9)
[2016-03-17 04:43] LABS: ALBUMIN/GLOBULIN RATIO 1.16; BILIRUBIN,INDIRECT 0.7 mg/dl (0-1.1); BILIRUBIN,TOTAL 0.7 mg/dl (0.2-1.3); CREATININE 1.13 mg/dl (0.44-1.00); TOTAL PROTEIN 5.4 g/dl (6.1-8.1)
[2016-03-17 04:44] LABS: CALCIUM 8.7 mg/dl (8.4-10.2); MAGNESIUM 2.3 mg/dl (1.7-2.5)
[2016-03-17 05:46] LABS: POTASSIUM 2.7 mmol/L (3.5-5.1)
[2016-03-17] MEDS: GABAPENTIN 300 MG CAP GTB SCH ×3 (06:00→21:25)
[2016-03-17] MEDS: LACTULOSE 30ML CUP PO SCH ×4 (06:00→17:47)
[2016-03-17] MEDS: BRIMONIDINE 0.2% 5 ML BTL BOTH EYES SCH ×3 (06:04→21:25)
[2016-03-17] MEDS: PANTOPRAZOLE 40 MG INJ IV SCH ×2 (06:19→17:47)
[2016-03-17] MEDS: POTASSIUM CHLORIDE 250 ML IVPB SCH ×2 (06:45→10:19)
[2016-03-17] MEDS: INSULIN ASPART [NOVOLOG] 3 ML PEN SC SCH ×7 (07:35→21:37)
--- NOTE | 2016-03-17 08:23 | RADRPT ---
PROCEDURE: XR Chest. CLINICAL INDICATION: Pneumonia. Congestive heart failure. TECHNIQUE: Portable single view of the chest COMPARISON: 03/16 FINDINGS: There has been no significant interval change. Cardiomegaly and aortic calcification is again seen. Left-sided PICC line remains in place. Left lower lobe atelectasis or infiltrate and right base s ubsegmental atelectasis again seen. Left pleural effusion. Mild pulmonary vascular congestion. IMPRESSION: No significant interval change. RPTAT: HLBE Comfort Butcher Physician Date Time Electronically viewed and signed by Comfort Butcher Physician on 03/17/2016 08:23 LE/
[2016-03-17] MEDS: MYCOPHENOLATE 250 MG CAP PO SCH ×2 (09:00→21:00)
[2016-03-17] MEDS: DOCUSATE SODIUM 100 MG CAP PO SCH ×2 (09:00→21:00)
[2016-03-17] MEDS: LUBIPROSTONE 24 MCG CAP PO SCH ×2 (09:00→21:00)
[2016-03-17] MEDS: MEROPENEM 500 MG in SOD CHLORIDE 0.9% 100 ML IVPB SCH ×2 (09:03→21:23)
[2016-03-17] MEDS: METHYLPREDNISOLONE 40 MG INJ IV SCH (09:03)
--- NOTE | 2016-03-17 10:12 | CONS ---
Date/Time of Note Date/Time of Note DATE: 03/17/16 TIME: 10:10 Consult Date/Type/Reason Admit Date/Time Feb 29, 2016 at 18:54 Type of Consultation: pulmonary Subjective Patient experiencing increased upper airway secretions every time she is given clear liquids by family members Requiring frequent nasotracheal suctioning which is causing epistaxis Family member at bedside Objective Vital Signs Date Time Temp Pulse Resp B/P Pulse Ox O2 Delivery O2 Flow Rate FiO2 03/17/16 08:36 97 1.0 21 03/17/16 08:36 78 31 Nasal Cannula 03/17/16 07:30 159/68 03/17/16 07:00 97.7 Intake and Output 03/16/16 03/16/16 03/17/16 15:00 23:00 07:00 Intake Total 60 ml 445 ml Output Total 565 ml 1200 ml 2250 ml Balance -565 ml -1140 ml -1805 ml GENERAL: Frail elderly lady with audible rales in the upper airway VITAL SIGNS: per chart NECK: Supple. No JVD or lymphadenopathy. CARDIAC EXAM: S1, S2. No added sounds or murmurs. CHEST: Diminished air entry bilaterally with rales ABDOMEN: Soft, nontender. No guarding or rebound. EXTREMITIES: No cyanosis, clubbing edema +1 NEUROLOGIC: Generalized weakness. Results/Medications Result Diagram: 03/17/1640903/17/16409 Results 24 hrs Laboratory Tests Test 03/16/16 11:07 03/16/16 14:00 03/16/16 17:39 03/16/16 18:17 B-Type Natriuretic Peptide 62520 H Bedside Glucose 162 201 Anion Gap 19 H Blood Urea Nitrogen 60 H Calcium Level 9.0 Carbon Dioxide Level 27 Chloride Level 114 H Creatinine 1.23 H Glucose Level 184 Potassium Level 3.7 Sodium Level 156 H Test 03/16/16 20:26 03/17/16 01:31 03/17/16 04:10 03/17/16 08:08 Bedside Glucose 206 146 101 Alanine Aminotransferase (ALT/SGPT) 22 Albumin 2.9 L Albumin/Globulin Ratio 1.16 Alkaline Phosphatase 60 Anion Gap 15 Aspartate Amino Transf (AST/SGOT) 13 L B-Type Natriuretic Peptide 53727 H Basophils # 0.0 Basophils % 0.0 Blood Morphology Comment Blood Urea Nitrogen 58 H Calcium Level 8.7 Carbon Dioxide Level 32 H Chloride Level 113 H Creatinine 1.13 H Direct Bilirubin 0.00 Eosinophils # 0.0 Eosinophils % 0.0 Globulin 2.50 Glucose Level 142 # Hematocrit 31.5 #L Hemoglobin 10.3 #L Indirect Bilirubin 0.7 Lymphocytes # 0.3 L Lymphocytes % 2.2 L Magnesium Level 2.3 Mean Corpuscular Hemoglobin 27.1 L Mean Corpuscular Hemoglobin Concent 32.6 Mean Corpuscular Volume 83.1 Mean Platelet Volume 7.1 L Monocytes # 0.5 Monocytes % 3.4 Neutrophils # 13.6 H Neutrophils % 94.4 H Nucleated Red Blood Cells # 0.0 Nucleated Red Blood Cells % 0.0 Platelet Count 206 # Potassium Level 2.7 *L Red Blood Count 3.79 #L Red Cell Distribution Width 15.7 H Sodium Level 157 H Total Bilirubin 0.7 Total Protein 5.4 L White Blood Count 14.4 H Medications Current Medications Brimonidine Tartrate (Alphagan 0.2%) 1 drop Q8 BOTH EYES Last administered on 03/17/16 06:04; Admin Dose 1 DROP; Start 03/01/16 at 06:00 Latanoprost (Xalatan) 1 drop QHS BOTH EYES Last administered on 03/16/16 20: 42; Admin Dose 1 DROP; Start 03/01/16 at 21:00 Mycophenolate Mofetil (Cellcept) 500 mg BID PO Last administered on 03/14/16at 08:44; Admin Dose 500 MG; Start 03/01/16 at 09:00 Acetaminophen (Tylenol Tab) 650 mg Q4H PRN PO pain/fever Last administered on 03/08/16at 12:49; Admin Dose 650 MG; Start 03/01/16 at 01:00 Ondansetron HCl (Zofran Inj) 4 mg Q4H PRN IV nausea Last administered on 02:23; Admin Dose 4 MG; Start 03/01/16 at 01:00 Morphine Sulfate (morphine) 2 mg Q2H PRN IV pain Last administered on 21:24; Admin Dose 2 MG; Start 03/01/16 at 01:00 Miscellaneous Information 1 ea NOTE XX ; Start 03/01/16 at 02:00 Glucose (Glutose) 15 gm Q15M PRN PO DECREASED GLUCOSE; Start 03/01/16 at 02:00 Glucose (Glutose) 22.5 gm Q15M PRN PO DECREASED GLUCOSE; Start 03/01/16 at 02: 00 Dextrose (D50w Syringe) 25 ml Q15M PRN IV DECREASED GLUCOSE Last administered on 03/13/16at 13:36; Admin Dose 25 ML; Start 03/01/16 at 02:00 Dextrose (D50w Syringe) 50 ml Q15M PRN IV DECREASED GLUCOSE Last administered on 03/13/16at 12:30; Admin Dose 50 ML; Start 03/01/16 at 02:00 Glucagon (Glucagen) 1 mg Q15M PRN IM DECREASED GLUCOSE; Start 03/01/16 at 02: 00 Glucose (Glutose) 15 gm Q15M PRN BUCCAL DECREASED GLUCOSE; Start 03/01/16 at 02:00 Diagnostic Test (Pha) (Accucheck) 1 ea 02 XX Last administered on 03/17/16at 01 :32; Admin Dose 1 EA; Start 03/02/16 at 02:00 Bisacodyl (Dulcolax Supp) 10 mg DAILY PRN [place] CONSTIPATION Last administered on 03/08/16at 23:47; Admin Dose 10 MG; Start 03/03/16 at 11:30 Clotrimazole (Lotrimin Cr) 1 applic BID TOP Last administered on 03/16/16at 21: 00; Admin Dose 1 APPLIC; Start 03/03/16 at 13:30 Insulin Glargine (Lantus) 40 unit QHS SC Last administered on 03/16/16at 20:41 ; Admin Dose 40 UNIT; Start 03/04/16 at 21:00 Docusate Sodium (Colace) 100 mg BID PO Last administered on 03/14/16at 08:45; Admin Dose 100 MG; Start 03/05/16 at 10:30 Sodium Chloride (Deep Sea) 1 spray Q4H PRN NASAL NASAL CONGESTION; Start 03/07 at 17:30 Ondansetron HCl (Zofran Inj) 4 mg Q4H PRN IV NAUSEA AND/OR VOMITING; Start at 23:30 Pantoprazole (Protonix Iv) 40 mg BID@06,18 IV Last administered on 03/17/16at 06:19; Admin Dose 40 MG; Start 03/10/16 at 06:00 Fentanyl (Duragesic 75 Mcg/Hr Patch) 1 patch Q72H TRANSDERM Last administered on 03/14/16 10:31; Admin Dose 1 PATCH; Start 03/11/16 at 09:00 Gabapentin (Neurontin) 300 mg Q8 GTB Last administered on 03/14/16 14:46; Admin Dose 300 MG; Start 03/13/16 at 06:00 Methylprednisolone Sodium Succinate (Solu-Medrol) 30 mg DAILY IV Last administered on 03/17/16 09:03; Admin Dose 30 MG; Start 03/13/16 at 09:30 Lactulose 20 gm 20 gm Q6 PO Last administered on 03/14/16 12:19; Admin Dose 20 GM; Start 03/13/16 at 18:00 Meropenem/Sodium Chloride (Merrem/NS) 100 ml @ 200 mls/hr Q12 IVPB Last administered on 03/17/16 09:03; Admin Dose 200 MLS/HR; Start 03/13/16 at 17: 00 Hydralazine HCl (Apresoline) 10 mg Q6H PRN IV SBP>160 Last administered on 10:18; Admin Dose 10 MG; Start 03/14/16 at 22:00 Clonidine HCl (Catapres-Tts 2 Patch) 1 patch Q7D TRANSDERM Last administered on 03/14/16 22:00; Admin Dose 1 PATCH; Start 03/14/16 at 22:00 Diltiazem HCl (Cardizem Iv) 10 mg Q4 IV Last administered on 03/16/16 20:29; Admin Dose 10 MG; Start 03/15/16 at 01:00 Lubiprostone 24 mcg 24 mcg BID PO ; Start 03/15/16 at 16:00 Diltiazem HCl 125 ml @ 5 mls/hr TITRATE IV Last administered on 03/17/16 02: 43; Admin Dose 15 MLS/HR; Start 03/16/16 at 10:30 Dextrose/Sodium Chloride (D5-1/2ns) 1,000 ml @ 50 mls/hr Q20H IV Last administered on 03/16/16 23:37; Admin Dose 50 MLS/HR; Start 03/16/16 at 17:30 Lorazepam 0.5 mg 0.5 mg Q8H PRN IV ANXIETY Last administered on 12/30/16at 23: 25; Admin Dose 0.5 MG; Start 03/16/16 at 23:00 Potassium Chloride (KCl 40 MEQ/250 ML NS) 250 ml @ 62.5 mls/hr Q4H IVPB Last administered on 03/17/16at 06:45; Admin Dose 62.5 MLS/HR; Start 03/17/16 at 06: 30; Stop 03/17/16 at 14:29 Assessment/Plan Chief Complaint/Hosp Course IMPRESSION: An 85-year-old female with: 1. Acute hypoxemic respiratory failure. Significant aspiration component significant neuromuscular weakness. Family continue to give patient clear liquids despite significant aspiration risk and multiple discussions by myself expressing concern for aspiration. 2. Chronic obstructive pulmonary disease exacerbation. 3. Bronchitis. As above persistent leukocytosis 4. Metabolic acidosis, clinically improved worsening renal function possibly secondary to diuretics 5. History of diabetes. Poor Glycemic control exacerbated by steroids 6. History of hypertension. 7. Atrial fibrillation with rapid ventricular rate 8. Coronary artery disease. 9. Anemia likely possibly dilutional questionable GI loss RECOMMENDATIONS: 1. Deep suctioning. Aggressive pulmonary toilet. Keep nothing by mouth 2. Supplemental oxygen 3. Antibiotics. 4. Bronchodilators. 5. Noninvasive positive pressure ventilation if needed. 6. Speech therapy recommendations continue aspiration precautions 7. Rate control per cardiology will likely require diltiazem drip 8. GI evaluation for anemia 9. Correction of hyponatremia and hypokalemia Prognosis guarded. I had an extensive discussion with patient's son who is a physician at bedside. Explained poor prognosis. I explained the need for intubation and mechanical ventilation for bronchoscopy and probably for upper GI endoscopy. Patient's family understand that intubation may result in patient never coming off mechanical ventilation. At this point they wish or aggressive measures including short-term intubation and mechanical ventilation if possible. Problems: SHIVA PERES MD, [facility] Mar 17, 2016 10:12
[2016-03-17] MEDS: FENTAnyl PATCH 75 MCG/HR TRANSDERM SCH (10:18)
[2016-03-17] MEDS: hydrALAzine 20 MG INJ IV PRN ×3 (10:19→23:18)
[2016-03-17] MEDS: DEXTROSE 5%-0.45% NACL 1,000 ML IV SCH (10:27)
[2016-03-17] MEDS: CLOTRIMAZOLE 1% 30 GM CR TOP SCH ×2 (11:15→21:24)
[2016-03-17] MEDS ORDERED: DIGOXIN 0.125 MG TAB PO SCH (13:00)
--- NOTE | 2016-03-17 13:03 | CONS ---
Date/Time of Note Date/Time of Note DATE: 03/17/16 TIME: 12:31 Assessment/Plan Assessment/Plan Chief Complaint/Hosp Course 1) Chronic atrial fibrillation with RVR 2) Preoperative risk assessment 3) Respiratory distress 4) Marked anemia 5) Preserved LV function 6) No significant valvular dysfunction Problems: Additional Assessment/Plan 1) Mild pulmonary fluid overload noted but respiratory distress disproportionate , likely due to aspiration 2) Will add digoxin 0.125 daily however heartrate is likely result of poor respiratory status. 3) prognosis guarded 4) will consider diuresis 5) Patient is at intermediate risk of cardiac events amid endoscopy, however, if deemed necessary by GI the benefits may outweigh the risk. The risk of respiratory adverse events may be higher than cardiac events. I discussed the details of this patient with the son in 20 min. Answered all his questions. Consultation Date/Type/Reason Admit Date/Time Feb 29, 2016 at 18:54 Date of Consultation: Mar 17, 2016 Type of Consultation: cv Reason for Consultation ATRIAL FIBRILLATION Referring Provider: KANCHAN LEONARD MD Hx of Present Illness was asked to assess patient's heartrate. patient with evidence of GIB in ICU, confused, marginal respiratory status, patient's son who states he is an protective service specialist at bedside. patient is nonconversant. No apparent chest pain, but patient seems sob. Subjective hx not possible: pt non-verbal Constitutional: poor po Eyes: no complaints ENT: no complaints Respiratory: shortness of breath Cardiovascular: no complaints Gastrointestinal: no complaints Genitourinary: no complaints Neurologic: confusion Psychological: confusion Past Medical History Medical History: coronary artery disease, diabetes, hypertension Past Surgical History Past Surgical Hx: no surgical history Social History Alcohol Use: none Smoking Status: Current every day smoker Drug Use: none Exam/Review of Systems Vital Signs Vitals Vital Signs Date Time Temp Pulse Resp B/P Pulse Ox O2 Delivery O2 Flow Rate FiO2 03/17/16 11:30 114 23 147/134 96 Nasal Cannula 03/17/16 08:36 1.0 21 03/17/16 07:00 97.7 Intake and Output 03/16/16 03/16/16 03/17/16 15:00 23:00 07:00 Intake Total 60 ml 445 ml Output Total 565 ml 1200 ml 2250 ml Balance -565 ml -1140 ml -1805 ml Exam Constitutional: non-verbal Psych: confusion Head: atraumatic, normocephalic Neck: supple Respiratory: crackles/rales, diminished breath sounds, labored breathing, wheezing Cardiovascular: irregular rhythm Gastrointestinal: soft Musculoskeletal: nl extremities to inspection Extremities: normal pulses Results Result Diagram: 03/17/16 0410 03/17/160 Results 24 hrs Laboratory Tests Test 03/16/16 14:00 03/16/16 17:39 03/16/16 18:17 03/16/16 20:26 Bedside Glucose 162 201 206 Anion Gap 19 H Blood Urea Nitrogen 60 H Calcium Level 9.0 Carbon Dioxide Level 27 Chloride Level 114 H Creatinine 1.23 H Glucose Level 184 Potassium Level 3.7 Sodium Level 156 H Test 03/17/16 01:31 03/17/16 04:10 03/17/16 08:08 03/17/16 11:38 Bedside Glucose 146 101 80 Alanine Aminotransferase (ALT/SGPT) 22 Albumin 2.9 L Albumin/Globulin Ratio 1.16 Alkaline Phosphatase 60 Anion Gap 15 Aspartate Amino Transf (AST/SGOT) 13 L B-Type Natriuretic Peptide 57110 H Basophils # 0.0 Basophils % 0.0 Blood Morphology Comment Blood Urea Nitrogen 58 H Calcium Level 8.7 Carbon Dioxide Level 32 H Chloride Level 113 H Creatinine 1.13 H Direct Bilirubin 0.00 Eosinophils # 0.0 Eosinophils % 0.0 Globulin 2.50 Glucose Level 142 # Hematocrit 31.5 #L Hemoglobin 10.3 #L Indirect Bilirubin 0.7 Lymphocytes # 0.3 L Lymphocytes % 2.2 L Magnesium Level 2.3 Mean Corpuscular Hemoglobin 27.1 L Mean Corpuscular Hemoglobin Concent 32.6 Mean Corpuscular Volume 83.1 Mean Platelet Volume 7.1 L Monocytes # 0.5 Monocytes % 3.4 Neutrophils # 13.6 H Neutrophils % 94.4 H Nucleated Red Blood Cells # 0.0 Nucleated Red Blood Cells % 0.0 Platelet Count 206 # Potassium Level 2.7 *L Red Blood Count 3.79 #L Red Cell Distribution Width 15.7 H Sodium Level 157 H Total Bilirubin 0.7 Total Protein 5.4 L White Blood Count 14.4 H Medications Medications Current Medications Brimonidine Tartrate (Alphagan 0.2%) 1 drop Q8 BOTH EYES Last administered on 03/17/16at 06:04; Admin Dose 1 DROP; Start 03/01/16 at 06:00 Latanoprost (Xalatan) 1 drop QHS BOTH EYES Last administered on 03/16/16at 20: 42; Admin Dose 1 DROP; Start 03/01/16 at 21:00 Mycophenolate Mofetil (Cellcept) 500 mg BID PO Last administered on 03/14/16at 08:44; Admin Dose 500 MG; Start 03/01/16 at 09:00 Acetaminophen (Tylenol Tab) 650 mg Q4H PRN PO pain/fever Last administered on 03/08/16at 12:49; Admin Dose 650 MG; Start 03/01/16 at 01:00 Ondansetron HCl (Zofran Inj) 4 mg Q4H PRN IV nausea Last administered on at 02:23; Admin Dose 4 MG; Start 03/01/16 at 01:00 Morphine Sulfate (morphine) 2 mg Q2H PRN IV pain Last administered on at 21:24; Admin Dose 2 MG; Start 03/01/16 at 01:00 Miscellaneous Information 1 ea NOTE XX ; Start 03/01/16 at 02:00 Glucose (Glutose) 15 gm Q15M PRN PO DECREASED GLUCOSE; Start 03/01/16 at 02:00 Glucose (Glutose) 22.5 gm Q15M PRN PO DECREASED GLUCOSE; Start 03/01/16 at 02: 00 Dextrose (D50w Syringe) 25 ml Q15M PRN IV DECREASED GLUCOSE Last administered on 03/13/16at 13:36; Admin Dose 25 ML; Start 03/01/16 at 02:00 Dextrose (D50w Syringe) 50 ml Q15M PRN IV DECREASED GLUCOSE Last administered on 03/13/16at 12:30; Admin Dose 50 ML; Start 03/01/16 at 02:00 Glucagon (Glucagen) 1 mg Q15M PRN IM DECREASED GLUCOSE; Start 03/01/16 at 02: 00 Glucose (Glutose) 15 gm Q15M PRN BUCCAL DECREASED GLUCOSE; Start 03/01/16 at 02:00 Diagnostic Test (Pha) (Accucheck) 1 ea 02 XX Last administered on 03/17/16at 01 :32; Admin Dose 1 EA; Start 03/02/16 at 02:00 Bisacodyl (Dulcolax Supp) 10 mg DAILY PRN [place] CONSTIPATION Last administered on 03/08/16 23:47; Admin Dose 10 MG; Start 03/03/16 at 11:30 Clotrimazole (Lotrimin Cr) 1 applic BID TOP Last administered on 03/17/16 11: 15; Admin Dose 1 APPLIC; Start 03/03/16 at 13:30 Insulin Glargine (Lantus) 40 unit QHS SC Last administered on 03/16/16 20:41 ; Admin Dose 40 UNIT; Start 03/04/16 at 21:00 Docusate Sodium (Colace) 100 mg BID PO Last administered on 03/14/16 08:45; Admin Dose 100 MG; Start 03/05/16 at 10:30 Sodium Chloride (Deep Sea) 1 spray Q4H PRN NASAL NASAL CONGESTION; Start 03/07 at 17:30 Ondansetron HCl (Zofran Inj) 4 mg Q4H PRN IV NAUSEA AND/OR VOMITING; Start at 23:30 Pantoprazole (Protonix Iv) 40 mg BID@06,18 IV Last administered on 03/17/16at 06:19; Admin Dose 40 MG; Start 03/10/16 at 06:00 Fentanyl (Duragesic 75 Mcg/Hr Patch) 1 patch Q72H TRANSDERM Last administered on 03/17/16 10:18; Admin Dose 1 PATCH; Start 03/11/16 at 09:00 Gabapentin (Neurontin) 300 mg Q8 GTB Last administered on 03/14/16at 14:46; Admin Dose 300 MG; Start 03/13/16 at 06:00 Methylprednisolone Sodium Succinate (Solu-Medrol) 30 mg DAILY IV Last administered on 03/17/16at 09:03; Admin Dose 30 MG; Start 03/13/16 at 09:30 Lactulose 20 gm 20 gm Q6 PO Last administered on 03/14/16 12:19; Admin Dose 20 GM; Start 03/13/16 at 18:00 Meropenem/Sodium Chloride (Merrem/NS) 100 ml @ 200 mls/hr Q12 IVPB Last administered on 03/17/16 09:03; Admin Dose 200 MLS/HR; Start 03/13/16 at 17: 00 Hydralazine HCl (Apresoline) 10 mg Q6H PRN IV SBP>160 Last administered on at 10:19; Admin Dose 10 MG; Start 03/14/16 at 22:00 Clonidine HCl (Catapres-Tts 2 Patch) 1 patch Q7D TRANSDERM Last administered on 03/14/16at 22:00; Admin Dose 1 PATCH; Start 03/14/16 at 22:00 Diltiazem HCl (Cardizem Iv) 10 mg Q4 IV Last administered on 03/16/16at 20:29; Admin Dose 10 MG; Start 03/15/16 at 01:00 Lubiprostone 24 mcg 24 mcg BID PO ; Start 03/15/16 at 16:00 Diltiazem HCl 125 ml @ 5 mls/hr TITRATE IV Last administered on 03/17/16at 02: 43; Admin Dose 15 MLS/HR; Start 03/16/16 at 10:30 Dextrose/Sodium Chloride (D5-1/2ns) 1,000 ml @ 50 mls/hr Q20H IV Last administered on 03/16/16at 23:37; Admin Dose 50 MLS/HR; Start 03/16/16 at 17:30 Lorazepam 0.5 mg 0.5 mg Q8H PRN IV ANXIETY Last administered on 03/16/16at 23: 25; Admin Dose 0.5 MG; Start 03/16/16 at 23:00 Potassium Chloride (KCl 40 MEQ/250 ML NS) 250 ml @ 62.5 mls/hr Q4H IVPB Last administered on 03/17/16at 10:19; Admin Dose 62.5 MLS/HR; Start 03/17/16 at 06: 30; Stop 03/17/16 at 14:29 Procedures Procedures EKG: afib with RICHIE JUAREZ MD Mar 17, 2016 12:50
[2016-03-17] MEDS: morphine 2 MG INJ IV PRN ×2 (15:01→22:34)
--- NOTE | 2016-03-17 15:02 | CONS ---
Date/Time of Note Date/Time of Note DATE: 03/17/16 TIME: 14:50 Assessment/Plan Assessment/Plan Chief Complaint/Hosp Course ID PROGRESS NOTE 24H INTERVAL SUMMARY * 85 yo obese F, noncommunicative, tachycardia, GIB-> melena stools and coffee- ground emesis s/p PRBCs yesterday, supplemental O2 * CXR: Left lower lobe atelectasis or infiltrate and right base subsegmental atelectasis again seen. Left pleural effusion. Mild pulmonary vascular congestion. PHYSICAL EXAMINATION: GENERAL: 85 yo F -> non-communicative HEENT: Unremarkable NECK: Supple, trachea midline. CHEST: Rise symmetrical, course BS + rales ABDOMEN: Soft, EXTREMITIES: Warm ID ASSESSMENT: 85 yo Obese F admit with: 1. Acute respiratory failure secondary to COPD exacerbation, pulmonary edema in setting of Afib w/RVR w/elevated BNP 2. Aspiration HCAP: * (+)Laryngeal congestion => concern silent aspiration due to significant neuromuscular weakness and inability to clear secretions. * RESPIRATORY CULTURE Final Organism 1 ESCHERICHIA COLI QUANTITY 2+ Organism 2 NO NORMAL RESPIRATORY YANCI QUANTITY . 2. Gram-negative rods urinary tract infection = ESCHERICHIA COLI 3. Acute renal failure. 4. Paroxysmal atrial fibrillation w/RVR = contributing to pulmonary edema 5. Diabetes. 6. Anemia. 7. 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 8. SIRS w/Leukocytosis = partial IV steroids demargination (-)MRSA Nares; (-)Influenza A/B Screen CURRENT ABX: Merrem #5 s/p Levaquin x 14 days s/p Bactrim ID PLAN: Pending GI EGD/colo evaluation Continue Merrem -> taper to Ceftriaxone if improves post GI Procedures Aspiration precautions . Problems: Consultation Date/Type/Reason Admit Date/Time Feb 29, 2016 at 18:54 Initial Consult Date 03/17/16 Type of Consultation: ID Referring Provider: KANCHAN LEONARD MD Exam/Review of Systems Vital Signs Vitals Vital Signs Date Time Temp Pulse Resp B/P Pulse Ox O2 Delivery O2 Flow Rate FiO2 03/17/16 13:30 94 30 160/67 Nasal Cannula 03/17/16 13:27 96 1.0 24 03/17/16 13:00 97.8 Intake and Output 03/16/16 03/16/16 03/17/16 15:00 23:00 07:00 Intake Total 60 ml 445 ml Output Total 565 ml 1200 ml 2250 ml Balance -565 ml -1140 ml -1805 ml Results Result Diagram: 03/17/160 03/17/16409 Results 24 hrs Laboratory Tests Test 03/16/16 17:39 03/16/16 18:17 03/16/16 20:26 03/17/16 01:31 Anion Gap 19 H Blood Urea Nitrogen 60 H Calcium Level 9.0 Carbon Dioxide Level 27 Chloride Level 114 H Creatinine 1.23 H Glucose Level 184 Potassium Level 3.7 Sodium Level 156 H Bedside Glucose 201 206 146 Test 03/17/16 04:10 03/17/16 08:08 03/17/16 11:38 Alanine Aminotransferase (ALT/SGPT) 22 Albumin 2.9 L Albumin/Globulin Ratio 1.16 Alkaline Phosphatase 60 Anion Gap 15 Aspartate Amino Transf (AST/SGOT) 13 L B-Type Natriuretic Peptide 92212 H Basophils # 0.0 Basophils % 0.0 Blood Morphology Comment Blood Urea Nitrogen 58 H Calcium Level 8.7 Carbon Dioxide Level 32 H Chloride Level 113 H Creatinine 1.13 H Direct Bilirubin 0.00 Eosinophils # 0.0 Eosinophils % 0.0 Globulin 2.50 Glucose Level 142 # Hematocrit 31.5 #L Hemoglobin 10.3 #L Indirect Bilirubin 0.7 Lymphocytes # 0.3 L Lymphocytes % 2.2 L Magnesium Level 2.3 Mean Corpuscular Hemoglobin 27.1 L Mean Corpuscular Hemoglobin Concent 32.6 Mean Corpuscular Volume 83.1 Mean Platelet Volume 7.1 L Monocytes # 0.5 Monocytes % 3.4 Neutrophils # 13.6 H Neutrophils % 94.4 H Nucleated Red Blood Cells # 0.0 Nucleated Red Blood Cells % 0.0 Platelet Count 206 # Potassium Level 2.7 *L Red Blood Count 3.79 #L Red Cell Distribution Width 15.7 H Sodium Level 157 H Total Bilirubin 0.7 Total Protein 5.4 L White Blood Count 14.4 H Bedside Glucose 101 80 Medications Medications Current Medications Brimonidine Tartrate (Alphagan 0.2%) 1 drop Q8 BOTH EYES Last administered on 03/17/16at 13:43; Admin Dose 1 DROP; Start 03/01/16 at 06:00 Latanoprost (Xalatan) 1 drop QHS BOTH EYES Last administered on 03/16/16 20: 42; Admin Dose 1 DROP; Start 03/01/16 at 21:00 Mycophenolate Mofetil (Cellcept) 500 mg BID PO Last administered on 03/14/16 08:44; Admin Dose 500 MG; Start 03/01/16 at 09:00 Acetaminophen (Tylenol Tab) 650 mg Q4H PRN PO pain/fever Last administered on 03/08/16 12:49; Admin Dose 650 MG; Start 03/01/16 at 01:00 Ondansetron HCl (Zofran Inj) 4 mg Q4H PRN IV nausea Last administered on 02:23; Admin Dose 4 MG; Start 03/01/16 at 01:00 Morphine Sulfate (morphine) 2 mg Q2H PRN IV pain Last administered on 21:24; Admin Dose 2 MG; Start 03/01/16 at 01:00 Miscellaneous Information 1 ea NOTE XX ; Start 03/01/16 at 02:00 Glucose (Glutose) 15 gm Q15M PRN PO DECREASED GLUCOSE; Start 03/01/16 at 02:00 Glucose (Glutose) 22.5 gm Q15M PRN PO DECREASED GLUCOSE; Start 03/01/16 at 02: 00 Dextrose (D50w Syringe) 25 ml Q15M PRN IV DECREASED GLUCOSE Last administered on 03/13/16 13:36; Admin Dose 25 ML; Start 03/01/16 at 02:00 Dextrose (D50w Syringe) 50 ml Q15M PRN IV DECREASED GLUCOSE Last administered on 03/13/16at 12:30; Admin Dose 50 ML; Start 03/01/16 at 02:00 Glucagon (Glucagen) 1 mg Q15M PRN IM DECREASED GLUCOSE; Start 03/01/16 at 02: 00 Glucose (Glutose) 15 gm Q15M PRN BUCCAL DECREASED GLUCOSE; Start 03/01/16 at 02:00 Diagnostic Test (Pha) (Accucheck) 1 ea 02 XX Last administered on 03/17/16at 01 :32; Admin Dose 1 EA; Start 03/02/16 at 02:00 Bisacodyl (Dulcolax Supp) 10 mg DAILY PRN [place] CONSTIPATION Last administered on 03/08/16at 23:47; Admin Dose 10 MG; Start 03/03/16 at 11:30 Clotrimazole (Lotrimin Cr) 1 applic BID TOP Last administered on 03/17/16 11: 15; Admin Dose 1 APPLIC; Start 03/03/16 at 13:30 Insulin Glargine (Lantus) 40 unit QHS SC Last administered on 03/16/16 20:41 ; Admin Dose 40 UNIT; Start 03/04/16 at 21:00 Docusate Sodium (Colace) 100 mg BID PO Last administered on 03/14/16 08:45; Admin Dose 100 MG; Start 03/05/16 at 10:30 Sodium Chloride (Deep Sea) 1 spray Q4H PRN NASAL NASAL CONGESTION; Start 03/07 at 17:30 Ondansetron HCl (Zofran Inj) 4 mg Q4H PRN IV NAUSEA AND/OR VOMITING; Start at 23:30 Pantoprazole (Protonix Iv) 40 mg BID@06,18 IV Last administered on 03/17/16 06:19; Admin Dose 40 MG; Start 03/10/16 at 06:00 Fentanyl (Duragesic 75 Mcg/Hr Patch) 1 patch Q72H TRANSDERM Last administered on 03/17/16 10:18; Admin Dose 1 PATCH; Start 03/11/16 at 09:00 Gabapentin (Neurontin) 300 mg Q8 GTB Last administered on 03/14/16 14:46; Admin Dose 300 MG; Start 03/13/16 at 06:00 Methylprednisolone Sodium Succinate (Solu-Medrol) 30 mg DAILY IV Last administered on 03/17/16 09:03; Admin Dose 30 MG; Start 03/13/16 at 09:30 Lactulose 20 gm 20 gm Q6 PO Last administered on 03/14/16 12:19; Admin Dose 20 GM; Start 03/13/16 at 18:00 Meropenem/Sodium Chloride (Merrem/NS) 100 ml @ 200 mls/hr Q12 IVPB Last administered on 03/17/16 09:03; Admin Dose 200 MLS/HR; Start 03/13/16 at 17: 00 Hydralazine HCl (Apresoline) 10 mg Q6H PRN IV SBP>160 Last administered on 10:19; Admin Dose 10 MG; Start 03/14/16 at 22:00 Clonidine HCl (Catapres-Tts 2 Patch) 1 patch Q7D TRANSDERM Last administered on 03/14/16at 22:00; Admin Dose 1 PATCH; Start 03/14/16 at 22:00 Diltiazem HCl (Cardizem Iv) 10 mg Q4 IV Last administered on 03/16/16at 20:29; Admin Dose 10 MG; Start 03/15/16 at 01:00 Lubiprostone 24 mcg 24 mcg BID PO ; Start 03/15/16 at 16:00 Diltiazem HCl 125 ml @ 5 mls/hr TITRATE IV Last administered on 03/17/16at 02: 43; Admin Dose 15 MLS/HR; Start 03/16/16 at 10:30 Dextrose/Sodium Chloride (D5-1/2ns) 1,000 ml @ 50 mls/hr Q20H IV Last administered on 03/16/16at 23:37; Admin Dose 50 MLS/HR; Start 03/16/16 at 17:30 Lorazepam 0.5 mg 0.5 mg Q8H PRN IV ANXIETY Last administered on 03/16/16at 23: 25; Admin Dose 0.5 MG; Start 03/16/16 at 23:00 Total Parenteral Nutrition 1,000 ml @ 40 mls/hr Q24H IV ; Start 03/17/16 at 16 :00 Fat Emulsion Intravenous (Liposyn Ii 20%) 250 ml @ 10.4 mls/hr Q24H IV ; Start 03/17/16 at 16:00 MILAGRO RUIZ NP Mar 17, 2016 15:00
--- NOTE | 2016-03-17 15:13 | PN ---
Date/Time of Note Date/Time of Note DATE: 03/17/16 TIME: 15:09 Assessment/Plan VTE Prophylaxis VTE Prophylaxis Intervention: SCD's Lines/Catheters IV Catheter Type (from Nrsg): PICC Line Central line still needed: Yes Urinary Cath still in place: Yes Reason Cath still needed: terminal illness/intractable pain Assessment/Plan Assessment/Plan 1. Hospital day 17 for this 85 yo woman with continued upper respiratory congestion. Overall, slightly improved, but still with congestion. pCXR this morning is unchanged, with mild bibasilar atelectasis and left pleural effusion. Mild pulmonary vascular congestion, despite lasix last night. Appears euvolemic. Echo showed normal LV function, but with elevated pulmonary artery pressures. WBC stable at 14.4k/ul, without fever or hypotension. Patient is immunosuppressed on Mycophenolate. * Continue meropenem. * Continued on oxygen * Regular suctioning * DVT prophylaxis with SCDs (concern for GI bleeding precludes anticoagulation) * PICC line successfully placed. *Swallow evaluation later today. 2. Heme-positive, though no bowel movements today. Constipation improved overall, likely secondary to her hyperglycemia and Fentanyl patch use. KUB showed colon full of fecal matter, and CT abd/pelvis showed no evidence of abdominopelvic mass, lymphadenopathy or focal acute inflammatory pathology. * PEG placement pending resolution of the tachycardia issue, according to Dr. Zuniga. GI consult by Dr. Vasquez was 13 days ago, and I left a message for him yesterday regarding re-consult to explore upper endoscopy and/or J-G tube placement. * Monitor CBC * Patient remains NPO; very thirsty 3. Tachycardia with atrial fibrillation. Does not appear pre-renal. * Start Cardikingsleym drip. Dr. Doss to see patient today. * Hold Eliquis given question of GI bleeding 4. Acute Respiratory failure, secondary to bronchitis/URI/pneumonia. Reported history of asthma. Immunosuppressed with CellCept chronically * Continue nebulizers * Solu-medrol currently tapered to 30 mg daily 5. CKD: Was at baseline of 1.35 on admission, then worsened to 3.12 last week, now roughly back to baseline. 6. Anemia, acute * s/p Transfusion of 2u PRBC 6. Diabetes. Blood sugars are much-improved today. * Continue daily Lantus insulin. * Continue Accu-Checks and sliding scale. 7. Hypertension. Management of Clonidine, Norvasc, and Cardizem as noted above. 8. 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 9. Chronic Pain, on fentanyl patch. Generally chronic low back pain benefits from more conservative measures, including PT, acupuncture, non-narcotic analgesics. * down to 75 mcg topically. 10 Nutrition: * NPO now * Anticipating further GI workup; may need PEG if not passing swallow study. TPN started today. 11. Prophylaxis: Holding Eliquis (given for atrial fibrillation) due to current concerns about GI bleeding. SCDs in place instead. Protonix for GI prophylaxis 12. Disposition: Home once able to breathe and eat comfortably. Subjective 24 Hr Interval Summary Free Text/Dictation Awake. Crying at times. wants to eat. Exam/Review of Systems Vital Signs Vitals Vital Signs Date Time Temp Pulse Resp B/P Pulse Ox O2 Delivery O2 Flow Rate FiO2 03/17/16 13:30 94 30 160/67 Nasal Cannula 03/17/16 13:27 96 1.0 24 03/17/16 13:00 97.8 Intake and Output 03/16/16 03/16/16 03/17/16 15:00 23:00 07:00 Intake Total 60 ml 445 ml Output Total 565 ml 1200 ml 2250 ml Balance -565 ml -1140 ml -1805 ml Exam Constitutional: alert, oriented Psych: anxiety Head: normocephalic ENMT: nl external ears & nose Neck: supple Respiratory: congested cough, crackles/rales, diminished breath sounds Cardiovascular: regular rate and rhythm Gastrointestinal: soft Extremities: normal pulses Results Result Diagram: 03/17/16 0410 03/17/16 041 Results 24 hrs Laboratory Tests Test 03/16/16 17:39 03/16/16 18:17 03/16/16 20:26 03/17/16 01:31 Anion Gap 19 H Blood Urea Nitrogen 60 H Calcium Level 9.0 Carbon Dioxide Level 27 Chloride Level 114 H Creatinine 1.23 H Glucose Level 184 Potassium Level 3.7 Sodium Level 156 H Bedside Glucose 201 206 146 Test 03/17/16 04:10 03/17/16 08:08 03/17/16 11:38 Alanine Aminotransferase (ALT/SGPT) 22 Albumin 2.9 L Albumin/Globulin Ratio 1.16 Alkaline Phosphatase 60 Anion Gap 15 Aspartate Amino Transf (AST/SGOT) 13 L B-Type Natriuretic Peptide 37848 H Basophils # 0.0 Basophils % 0.0 Blood Morphology Comment Blood Urea Nitrogen 58 H Calcium Level 8.7 Carbon Dioxide Level 32 H Chloride Level 113 H Creatinine 1.13 H Direct Bilirubin 0.00 Eosinophils # 0.0 Eosinophils % 0.0 Globulin 2.50 Glucose Level 142 # Hematocrit 31.5 #L Hemoglobin 10.3 #L Indirect Bilirubin 0.7 Lymphocytes # 0.3 L Lymphocytes % 2.2 L Magnesium Level 2.3 Mean Corpuscular Hemoglobin 27.1 L Mean Corpuscular Hemoglobin Concent 32.6 Mean Corpuscular Volume 83.1 Mean Platelet Volume 7.1 L Monocytes # 0.5 Monocytes % 3.4 Neutrophils # 13.6 H Neutrophils % 94.4 H Nucleated Red Blood Cells # 0.0 Nucleated Red Blood Cells % 0.0 Platelet Count 206 # Potassium Level 2.7 *L Red Blood Count 3.79 #L Red Cell Distribution Width 15.7 H Sodium Level 157 H Total Bilirubin 0.7 Total Protein 5.4 L White Blood Count 14.4 H Bedside Glucose 101 80 Medications Medications Current Medications Brimonidine Tartrate (Alphagan 0.2%) 1 drop Q8 BOTH EYES Last administered on 03/17/16 13:43; Admin Dose 1 DROP; Start 03/01/16 at 06:00 Latanoprost (Xalatan) 1 drop QHS BOTH EYES Last administered on 03/16/16at 20: 42; Admin Dose 1 DROP; Start 03/01/16 at 21:00 Mycophenolate Mofetil (Cellcept) 500 mg BID PO Last administered on 03/14/16at 08:44; Admin Dose 500 MG; Start 03/01/16 at 09:00 Acetaminophen (Tylenol Tab) 650 mg Q4H PRN PO pain/fever Last administered on 03/08/16 12:49; Admin Dose 650 MG; Start 03/01/16 at 01:00 Ondansetron HCl (Zofran Inj) 4 mg Q4H PRN IV nausea Last administered on 02:23; Admin Dose 4 MG; Start 03/01/16 at 01:00 Morphine Sulfate (morphine) 2 mg Q2H PRN IV pain Last administered on at 15:01; Admin Dose 2 MG; Start 03/01/16 at 01:00 Miscellaneous Information 1 ea NOTE XX ; Start 03/01/16 at 02:00 Glucose (Glutose) 15 gm Q15M PRN PO DECREASED GLUCOSE; Start 03/01/16 at 02:00 Glucose (Glutose) 22.5 gm Q15M PRN PO DECREASED GLUCOSE; Start 03/01/16 at 02: 00 Dextrose (D50w Syringe) 25 ml Q15M PRN IV DECREASED GLUCOSE Last administered on 03/13/16at 13:36; Admin Dose 25 ML; Start 03/01/16 at 02:00 Dextrose (D50w Syringe) 50 ml Q15M PRN IV DECREASED GLUCOSE Last administered on 03/13/16at 12:30; Admin Dose 50 ML; Start 03/01/16 at 02:00 Glucagon (Glucagen) 1 mg Q15M PRN IM DECREASED GLUCOSE; Start 03/01/16 at 02: 00 Glucose (Glutose) 15 gm Q15M PRN BUCCAL DECREASED GLUCOSE; Start 03/01/16 at 02:00 Diagnostic Test (Pha) (Accucheck) 1 ea 02 XX Last administered on 03/17/16at 01 :32; Admin Dose 1 EA; Start 03/02/16 at 02:00 Bisacodyl (Dulcolax Supp) 10 mg DAILY PRN [place] CONSTIPATION Last administered on 03/08/16at 23:47; Admin Dose 10 MG; Start 03/03/16 at 11:30 Clotrimazole (Lotrimin Cr) 1 applic BID TOP Last administered on 03/17/16at 11: 15; Admin Dose 1 APPLIC; Start 03/03/16 at 13:30 Insulin Glargine (Lantus) 40 unit QHS SC Last administered on 03/16/16at 20:41 ; Admin Dose 40 UNIT; Start 03/04/16 at 21:00 Docusate Sodium (Colace) 100 mg BID PO Last administered on 03/14/16at 08:45; Admin Dose 100 MG; Start 03/05/16 at 10:30 Sodium Chloride (Deep Sea) 1 spray Q4H PRN NASAL NASAL CONGESTION; Start 03/07 at 17:30 Ondansetron HCl (Zofran Inj) 4 mg Q4H PRN IV NAUSEA AND/OR VOMITING; Start at 23:30 Pantoprazole (Protonix Iv) 40 mg BID@06,18 IV Last administered on 03/17/16 06:19; Admin Dose 40 MG; Start 03/10/16 at 06:00 Fentanyl (Duragesic 75 Mcg/Hr Patch) 1 patch Q72H TRANSDERM Last administered on 03/17/16at 10:18; Admin Dose 1 PATCH; Start 03/11/16 at 09:00 Gabapentin (Neurontin) 300 mg Q8 GTB Last administered on 03/14/16at 14:46; Admin Dose 300 MG; Start 03/13/16 at 06:00 Methylprednisolone Sodium Succinate (Solu-Medrol) 30 mg DAILY IV Last administered on 03/17/16 09:03; Admin Dose 30 MG; Start 03/13/16 at 09:30 Lactulose 20 gm 20 gm Q6 PO Last administered on 03/14/16 12:19; Admin Dose 20 GM; Start 03/13/16 at 18:00 Meropenem/Sodium Chloride (Merrem/NS) 100 ml @ 200 mls/hr Q12 IVPB Last administered on 03/17/16 09:03; Admin Dose 200 MLS/HR; Start 03/13/16 at 17: 00 Hydralazine HCl (Apresoline) 10 mg Q6H PRN IV SBP>160 Last administered on at 10:19; Admin Dose 10 MG; Start 03/14/16 at 22:00 Clonidine HCl (Catapres-Tts 2 Patch) 1 patch Q7D TRANSDERM Last administered on 03/14/16at 22:00; Admin Dose 1 PATCH; Start 03/14/16 at 22:00 Diltiazem HCl (Cardizem Iv) 10 mg Q4 IV Last administered on 03/16/16 20:29; Admin Dose 10 MG; Start 03/15/16 at 01:00 Lubiprostone 24 mcg 24 mcg BID PO ; Start 03/15/16 at 16:00 Diltiazem HCl 125 ml @ 5 mls/hr TITRATE IV Last administered on 03/17/16 02: 43; Admin Dose 15 MLS/HR; Start 03/16/16 at 10:30 Dextrose/Sodium Chloride (D5-1/2ns) 1,000 ml @ 50 mls/hr Q20H IV Last administered on 03/16/16at 23:37; Admin Dose 50 MLS/HR; Start 03/16/16 at 17:30 Lorazepam 0.5 mg 0.5 mg Q8H PRN IV ANXIETY Last administered on 03/16/16at 23: 25; Admin Dose 0.5 MG; Start 03/16/16 at 23:00 Total Parenteral Nutrition 1,000 ml @ 40 mls/hr Q24H IV ; Start 03/17/16 at 16 :00 Fat Emulsion Intravenous (Liposyn Ii 20%) 250 ml @ 10.4 mls/hr Q24H IV ; Start 03/17/16 at 16:00 KANCHAN LEONARD MD Mar 17, 2016 15:13
[2016-03-17] MEDS: TPN 1,000 ML IV SCH (15:19)
[2016-03-17] MEDS: FAT EMULSION 20% 250 ML IV SCH (15:50)
--- NOTE | 2016-03-17 20:28 | CONS ---
Date/Time of Note Date/Time of Note DATE: 03/17/16 TIME: 20:18 Assessment/Plan Assessment/Plan Chief Complaint/Hosp Course Assessment and Plan: 1. Heme-positive anemia: EGD canceled 03-16-16 due to A. fib. - transfuse PRN hgb < 8 - await cardiac clearance for EGD 2. Tachycardia with atrial fibrillation. - await cardiac stabilization and clearance for EGD 3. Constipation: resolving, pt had BM 4. Acute Respiratory failure, secondary to bronchitis/URI/pneumonia. Reported history of asthma. Immunosuppressed with CellCept chronically - management per primary and other consultants 5. CKD: Was at baseline of 1.35 on admission, then worsened to 3.12 last week, now roughly back to baseline. 6. Poor nutrition/protein calorie malnutrition - TPN started today. - awaiting swallow eval - Consider PEG per Dr. Zuniga 7. Family unhappy: pt's son who is a MD has several complaints. Mainly complains that pt's medical issues were not addressed promptly. He complains that no MD calls him to update. I tried to answer his questions and stress that we are doing our best to help without doing harm. For example, doing a EGD while she is unstable with respect to a. fib would have higher than acceptable risk. Son then complains that why Primary did not get cardiology eval sooner. Son will try to speak to primary to resolve his unhappiness. Problems: Consultation Date/Type/Reason Admit Date/Time Feb 29, 2016 at 18:54 Initial Consult Date 03/17/16 Type of Consultation: GI Referring Provider: KANCHAN LEONARD MD 24 HR Interval Summary Free Text/Dictation sedated, crying, emotional Constitutional: improved Exam/Review of Systems Vital Signs Vitals Vital Signs Date Time Temp Pulse Resp B/P Pulse Ox O2 Delivery O2 Flow Rate FiO2 03/17/16 19:54 Nasal Cannula 2.0 03/17/16 18:30 109 26 146/83 96 03/17/16 18:11 24 03/17/16 16:00 97.9 Intake and Output 03/16/16 03/16/16 03/17/16 15:00 23:00 07:00 Intake Total 60 ml 445 ml Output Total 565 ml 1200 ml 2250 ml Balance -565 ml -1140 ml -1805 ml Exam Psych: confusion Head: atraumatic, normocephalic Eyes: EOMI, nl conjunctiva, nl lids, nl sclera ENMT: mucosa pink and moist, nl external ears & nose, nl lips & teeth, nl nasal mucosa & septum Neck: non-tender, supple Respiratory: clear to auscultation, normal air movement Cardiovascular: nl pulses, regular rate and rhythm Gastrointestinal: bowel sounds, soft, tender (diffusely tender) Results Result Diagram: 03/17/1640903/17/16 041 Results 24 hrs Laboratory Tests Test 03/16/16 20:26 03/17/16 01:31 03/17/16 04:10 03/17/16 08:08 Bedside Glucose 206 146 101 Alanine Aminotransferase (ALT/SGPT) 22 Albumin 2.9 L Albumin/Globulin Ratio 1.16 Alkaline Phosphatase 60 Anion Gap 15 Aspartate Amino Transf (AST/SGOT) 13 L B-Type Natriuretic Peptide 01660 H Basophils # 0.0 Basophils % 0.0 Blood Morphology Comment Blood Urea Nitrogen 58 H Calcium Level 8.7 Carbon Dioxide Level 32 H Chloride Level 113 H Creatinine 1.13 H Direct Bilirubin 0.00 Eosinophils # 0.0 Eosinophils % 0.0 Globulin 2.50 Glucose Level 142 # Hematocrit 31.5 #L Hemoglobin 10.3 #L Indirect Bilirubin 0.7 Lymphocytes # 0.3 L Lymphocytes % 2.2 L Magnesium Level 2.3 Mean Corpuscular Hemoglobin 27.1 L Mean Corpuscular Hemoglobin Concent 32.6 Mean Corpuscular Volume 83.1 Mean Platelet Volume 7.1 L Monocytes # 0.5 Monocytes % 3.4 Neutrophils # 13.6 H Neutrophils % 94.4 H Nucleated Red Blood Cells # 0.0 Nucleated Red Blood Cells % 0.0 Platelet Count 206 # Potassium Level 2.7 *L Red Blood Count 3.79 #L Red Cell Distribution Width 15.7 H Sodium Level 157 H Total Bilirubin 0.7 Total Protein 5.4 L White Blood Count 14.4 H Test 03/17/16 11:38 03/17/16 17:44 Bedside Glucose 80 161 Medications Medications Current Medications Brimonidine Tartrate (Alphagan 0.2%) 1 drop Q8 BOTH EYES Last administered on 03/17/16at 13:43; Admin Dose 1 DROP; Start 03/01/16 at 06:00 Latanoprost (Xalatan) 1 drop QHS BOTH EYES Last administered on 03/16/16 20: 42; Admin Dose 1 DROP; Start 03/01/16 at 21:00 Mycophenolate Mofetil (Cellcept) 500 mg BID PO Last administered on 03/14/16at 08:44; Admin Dose 500 MG; Start 03/01/16 at 09:00 Acetaminophen (Tylenol Tab) 650 mg Q4H PRN PO pain/fever Last administered on 03/08/16at 12:49; Admin Dose 650 MG; Start 03/01/16 at 01:00 Ondansetron HCl (Zofran Inj) 4 mg Q4H PRN IV nausea Last administered on at 02:23; Admin Dose 4 MG; Start 03/01/16 at 01:00 Morphine Sulfate (morphine) 2 mg Q2H PRN IV pain Last administered on at 15:01; Admin Dose 2 MG; Start 03/01/16 at 01:00 Miscellaneous Information 1 ea NOTE XX ; Start 03/01/16 at 02:00 Glucose (Glutose) 15 gm Q15M PRN PO DECREASED GLUCOSE; Start 03/01/16 at 02:00 Glucose (Glutose) 22.5 gm Q15M PRN PO DECREASED GLUCOSE; Start 03/01/16 at 02: 00 Dextrose (D50w Syringe) 25 ml Q15M PRN IV DECREASED GLUCOSE Last administered on 03/13/16at 13:36; Admin Dose 25 ML; Start 03/01/16 at 02:00 Dextrose (D50w Syringe) 50 ml Q15M PRN IV DECREASED GLUCOSE Last administered on 03/13/16at 12:30; Admin Dose 50 ML; Start 03/01/16 at 02:00 Glucagon (Glucagen) 1 mg Q15M PRN IM DECREASED GLUCOSE; Start 03/01/16 at 02: 00 Glucose (Glutose) 15 gm Q15M PRN BUCCAL DECREASED GLUCOSE; Start 03/01/16 at 02:00 Diagnostic Test (Pha) (Accucheck) 1 ea 02 XX Last administered on 03/17/16at 01 :32; Admin Dose 1 EA; Start 03/02/16 at 02:00 Bisacodyl (Dulcolax Supp) 10 mg DAILY PRN [place] CONSTIPATION Last administered on 03/08/16at 23:47; Admin Dose 10 MG; Start 03/03/16 at 11:30 Clotrimazole (Lotrimin Cr) 1 applic BID TOP Last administered on 03/17/16 11: 15; Admin Dose 1 APPLIC; Start 03/03/16 at 13:30 Insulin Glargine (Lantus) 40 unit QHS SC Last administered on 03/16/16 20:41 ; Admin Dose 40 UNIT; Start 03/04/16 at 21:00 Docusate Sodium (Colace) 100 mg BID PO Last administered on 03/14/16 08:45; Admin Dose 100 MG; Start 03/05/16 at 10:30 Sodium Chloride (Deep Sea) 1 spray Q4H PRN NASAL NASAL CONGESTION; Start 03/07 at 17:30 Ondansetron HCl (Zofran Inj) 4 mg Q4H PRN IV NAUSEA AND/OR VOMITING; Start at 23:30 Pantoprazole (Protonix Iv) 40 mg BID@06,18 IV Last administered on 03/17/16 17:47; Admin Dose 40 MG; Start 03/10/16 at 06:00 Fentanyl (Duragesic 75 Mcg/Hr Patch) 1 patch Q72H TRANSDERM Last administered on 03/17/16 10:18; Admin Dose 1 PATCH; Start 03/11/16 at 09:00 Gabapentin (Neurontin) 300 mg Q8 GTB Last administered on 03/14/16 14:46; Admin Dose 300 MG; Start 03/13/16 at 06:00 Methylprednisolone Sodium Succinate (Solu-Medrol) 30 mg DAILY IV Last administered on 03/17/16 09:03; Admin Dose 30 MG; Start 03/13/16 at 09:30 Lactulose 20 gm 20 gm Q6 PO Last administered on 03/14/16 12:19; Admin Dose 20 GM; Start 03/13/16 at 18:00 Meropenem/Sodium Chloride (Merrem/NS) 100 ml @ 200 mls/hr Q12 IVPB Last administered on 03/17/16 09:03; Admin Dose 200 MLS/HR; Start 03/13/16 at 17: 00 Hydralazine HCl (Apresoline) 10 mg Q6H PRN IV SBP>160 Last administered on 16:46; Admin Dose 10 MG; Start 03/14/16 at 22:00 Clonidine HCl (Catapres-Tts 2 Patch) 1 patch Q7D TRANSDERM Last administered on 03/14/16 22:00; Admin Dose 1 PATCH; Start 03/14/16 at 22:00 Diltiazem HCl (Cardizem Iv) 10 mg Q4 IV Last administered on 03/16/16 20:29; Admin Dose 10 MG; Start 03/15/16 at 01:00 Lubiprostone 24 mcg 24 mcg BID PO ; Start 03/15/16 at 16:00 Diltiazem HCl 125 ml @ 5 mls/hr TITRATE IV Last administered on 03/17/16 02: 43; Admin Dose 15 MLS/HR; Start 03/16/16 at 10:30 Dextrose/Sodium Chloride (D5-1/2ns) 1,000 ml @ 50 mls/hr Q20H IV Last administered on 03/16/16 23:37; Admin Dose 50 MLS/HR; Start 03/16/16 at 17:30 Lorazepam 0.5 mg 0.5 mg Q8H PRN IV ANXIETY Last administered on 03/16/16 23: 25; Admin Dose 0.5 MG; Start 03/16/16 at 23:00 Total Parenteral Nutrition 1,000 ml @ 40 mls/hr Q24H IV Last administered on 03/17/16at 15:19; Admin Dose 40 MLS/HR; Start 03/17/16 at 16:00 Fat Emulsion Intravenous (Liposyn Ii 20%) 250 ml @ 10.4 mls/hr Q24H IV Last administered on 03/17/16at 15:50; Admin Dose 10.4 MLS/HR; Start 03/17/16 at 16: 00 DEONTE DUARTE MD Mar 17, 2016 20:28
[2016-03-17] MEDS: LATANOPROST 0.005% 2.5 ML OPH BOTH EYES SCH (21:21)
[2016-03-17] MEDS: INSULIN GLARGINE [LANtus] 3 ML PEN SC SCH (21:37)
[2016-03-17] MEDS: LORAZEPAM 2 MG INJ IV PRN (23:12)
[2016-03-18] VITALS (23 sets, daily range): BP systolic 116–170; BP diastolic 44–123; PULSE 82–143; RESP 18–35
[2016-03-18] MEDS: DILTIAZEM 25 MG INJ IV SCH ×6 (00:56→21:11)
[2016-03-18] MEDS: morphine 2 MG INJ IV PRN ×2 (00:57→09:54)
[2016-03-18] MEDS: ALBUTEROL/IPRATROPIUM (NEB) 3 ML AMP HHN SCH ×4 (01:35→20:08)
[2016-03-18] MEDS: ACCUCHECK AT 2AM (Patients on SS coverage) XX SCH (02:00)
[2016-03-18 05:06] LABS: POTASSIUM 3.2 mmol/L (3.5-5.1)
[2016-03-18 05:08] LABS: CREATININE 0.99 mg/dl (0.44-1.00); HEMOGLOBIN 11.1 g/dl (12.0-16.0); MEAN CORPUSCULAR HEMOGLOBIN 27.1 pg (29.0-33.0); MEAN CORPUSCULAR HGB CONC 32.6 g/dl (32.0-37.0); MEAN CORPUSCULAR VOLUME 83.2 fl (82.0-101.0); PLATELET COUNT 195 10^3/UL (140-440); RED BLOOD COUNT 4.09 10^6/ul (4.20-5.40)
[2016-03-18 05:09] LABS: CALCIUM 8.9 mg/dl (8.4-10.2); MAGNESIUM 1.9 mg/dl (1.7-2.5); PHOSPHORUS 2.9 mg/dl (2.5-4.9)
[2016-03-18] MEDS: GABAPENTIN 300 MG CAP GTB SCH ×3 (05:11→21:17)
[2016-03-18] MEDS: BRIMONIDINE 0.2% 5 ML BTL BOTH EYES SCH ×3 (05:11→21:15)
[2016-03-18] MEDS: LACTULOSE 30ML CUP PO SCH ×5 (05:12→23:52)
[2016-03-18] MEDS: PANTOPRAZOLE 40 MG INJ IV SCH ×2 (05:12→17:16)
[2016-03-18 06:22] LABS: CONDITION 1; LH ANALYZER COMMENTS 1; SUSPECT 1
[2016-03-18] MEDS ORDERED: INSULIN GLARGINE [LANtus] 3 ML PEN SC ONE (06:30)
[2016-03-18] MEDS: POTASSIUM CHLORIDE 250 ML IVPB SCH ×2 (06:58→09:47)
[2016-03-18] MEDS: Insulin NOVOLOG SS MODERATE Algorithm(NPO/TPN/ENTERAL FEEDS) SC SCH ×3 (07:03→17:11)
[2016-03-18] MEDS: INSULIN ASPART [NOVOLOG] 3 ML PEN SC SCH ×3 (07:34→17:13)
[2016-03-18] MEDS: MYCOPHENOLATE 250 MG CAP PO SCH ×3 (09:00→21:09)
[2016-03-18] MEDS: LUBIPROSTONE 24 MCG CAP PO SCH ×3 (09:00→21:08)
[2016-03-18] MEDS: DOCUSATE SODIUM 100 MG CAP PO SCH ×3 (09:00→21:09)
[2016-03-18] MEDS: MEROPENEM 500 MG in SOD CHLORIDE 0.9% 100 ML IVPB SCH ×2 (09:46→21:15)
[2016-03-18] MEDS: METHYLPREDNISOLONE 40 MG INJ IV SCH (09:46)
[2016-03-18] MEDS: CLOTRIMAZOLE 1% 30 GM CR TOP SCH ×2 (09:47→21:09)
[2016-03-18 10:13] LABS: LYMPHOCYTES # 0.6 10^3/ul (0.8-2.9); MONOCYTE # 0.6 10^3/ul (0.3-0.9); NEUTROPHIL # 12.7 10^3/ul (1.6-7.5)
--- NOTE | 2016-03-18 10:32 | CONS ---
Date/Time of Note Date/Time of Note DATE: 03/18/16 TIME: 10:24 Consult Date/Type/Reason Admit Date/Time Feb 29, 2016 at 18:54 Type of Consultation: pulmonary Ordering Provider: KANCHAN LEONARD MD Subjective off DILTIAZEM drip however still with atrial fibrillation rapid ventricular rate overall looks a little better less respiratory distress Objective Vital Signs Date Time Temp Pulse Resp B/P Pulse Ox O2 Delivery O2 Flow Rate FiO2 03/18/16 08:00 97 03/18/16 07:58 26 97 Nasal Cannula 1.0 03/18/16 07:00 158/89 03/18/16 04:00 97.6 03/18/16 01:36 22 Intake and Output 03/17/16 03/17/16 03/18/16 15:00 23:00 07:00 Intake Total 490.0 ml 628.2 ml 352.8 ml Output Total 890 ml 962 ml 434 ml Balance -400.0 ml -333.8 ml -81.2 ml GENERAL: Frail elderly lady with audible rales in the upper airway VITAL SIGNS: per chart NECK: Supple. No JVD or lymphadenopathy. CARDIAC EXAM: S1, S2. No added sounds or murmurs. CHEST: Diminished air entry bilaterally with rales ABDOMEN: Soft, nontender. No guarding or rebound. EXTREMITIES: No cyanosis, clubbing edema +1 NEUROLOGIC: Generalized weakness Results/Medications Result Diagram: 03/18/16 0410 03/18/16 0410 Results 24 hrs Laboratory Tests Test 03/17/16 11:38 03/17/16 17:44 03/17/16 21:32 03/18/16 03:25 Bedside Glucose 80 161 208 290 H Test 03/18/16 04:10 03/18/16 07:01 03/18/16 07:30 Anion Gap 18 H Band Neutrophils % 1.0 Blood Morphology Comment Blood Urea Nitrogen 52 H Calcium Level 8.9 Carbon Dioxide Level 29 Chloride Level 113 H Creatinine 0.99 Glucose Level 292 #H Hematocrit 34.0 L Hemoglobin 11.1 L Lymphocytes # 0.6 L Lymphocytes % 4.0 L Magnesium Level 1.9 Mean Corpuscular Hemoglobin 27.1 L Mean Corpuscular Hemoglobin Concent 32.6 Mean Corpuscular Volume 83.2 Mean Platelet Volume 8.0 Monocytes # 0.6 Monocytes % 4.0 Neutrophils # 12.7 H Neutrophils % 91.0 H Phosphorus Level 2.9 Platelet Count 195 Potassium Level 3.2 L Red Blood Count 4.09 L Red Cell Distribution Width 16.0 H Sodium Level 157 H White Blood Count 14.0 H Bedside Glucose 298 H 276 H Medications Current Medications Brimonidine Tartrate (Alphagan 0.2%) 1 drop Q8 BOTH EYES Last administered on 05:11; Admin Dose 1 DROP; Start 03/01/16 at 06:00 Latanoprost (Xalatan) 1 drop QHS BOTH EYES Last administered on 03/17/16 21: 21; Admin Dose 1 DROP; Start 03/01/16 at 21:00 Mycophenolate Mofetil (Cellcept) 500 mg BID PO Last administered on 03/14/16 08:44; Admin Dose 500 MG; Start 03/01/16 at 09:00 Acetaminophen (Tylenol Tab) 650 mg Q4H PRN PO pain/fever Last administered on 03/08/16 12:49; Admin Dose 650 MG; Start 03/01/16 at 01:00 Ondansetron HCl (Zofran Inj) 4 mg Q4H PRN IV nausea Last administered on 02:23; Admin Dose 4 MG; Start 03/01/16 at 01:00 Morphine Sulfate (morphine) 2 mg Q2H PRN IV pain Last administered on 03/18/16 09:54; Admin Dose 2 MG; Start 03/01/16 at 01:00 Miscellaneous Information 1 ea NOTE XX ; Start 03/01/16 at 02:00 Glucose (Glutose) 15 gm Q15M PRN PO DECREASED GLUCOSE; Start 03/01/16 at 02:00 Glucose (Glutose) 22.5 gm Q15M PRN PO DECREASED GLUCOSE; Start 03/01/16 at 02: 00 Dextrose (D50w Syringe) 25 ml Q15M PRN IV DECREASED GLUCOSE Last administered on 03/13/16 13:36; Admin Dose 25 ML; Start 03/01/16 at 02:00 Dextrose (D50w Syringe) 50 ml Q15M PRN IV DECREASED GLUCOSE Last administered on 03/13/16 12:30; Admin Dose 50 ML; Start 03/01/16 at 02:00 Glucagon (Glucagen) 1 mg Q15M PRN IM DECREASED GLUCOSE; Start 03/01/16 at 02: 00 Glucose (Glutose) 15 gm Q15M PRN BUCCAL DECREASED GLUCOSE; Start 03/01/16 at 02:00 Diagnostic Test (Pha) (Accucheck) 1 ea 02 XX Last administered on 03/18/16 02: 00; Admin Dose 1 EA; Start 03/02/16 at 02:00 Bisacodyl (Dulcolax Supp) 10 mg DAILY PRN [place] CONSTIPATION Last administered on 03/08/16 23:47; Admin Dose 10 MG; Start 03/03/16 at 11:30 Clotrimazole (Lotrimin Cr) 1 applic BID TOP Last administered on 03/18/16 09:47 ; Admin Dose 1 APPLIC; Start 03/03/16 at 13:30 Docusate Sodium (Colace) 100 mg BID PO Last administered on 03/14/16 08:45; Admin Dose 100 MG; Start 03/05/16 at 10:30 Sodium Chloride (Deep Sea) 1 spray Q4H PRN NASAL NASAL CONGESTION; Start 03/07 at 17:30 Ondansetron HCl (Zofran Inj) 4 mg Q4H PRN IV NAUSEA AND/OR VOMITING; Start at 23:30 Pantoprazole (Protonix Iv) 40 mg BID@06,18 IV Last administered on 03/18/16 05: 12; Admin Dose 40 MG; Start 03/10/16 at 06:00 Fentanyl (Duragesic 75 Mcg/Hr Patch) 1 patch Q72H TRANSDERM Last administered on 03/17/16at 10:18; Admin Dose 1 PATCH; Start 03/11/16 at 09:00 Gabapentin (Neurontin) 300 mg Q8 GTB Last administered on 03/14/16at 14:46; Admin Dose 300 MG; Start 03/13/16 at 06:00 Methylprednisolone Sodium Succinate (Solu-Medrol) 30 mg DAILY IV Last administered on 03/18/16 09:46; Admin Dose 30 MG; Start 03/13/16 at 09:30 Lactulose 20 gm 20 gm Q6 PO Last administered on 03/14/16at 12:19; Admin Dose 20 GM; Start 03/13/16 at 18:00 Meropenem/Sodium Chloride (Merrem/NS) 100 ml @ 200 mls/hr Q12 IVPB Last administered on 03/18/16 09:46; Admin Dose 200 MLS/HR; Start 03/13/16 at 17:00 Hydralazine HCl (Apresoline) 10 mg Q6H PRN IV SBP>160 Last administered on 23:18; Admin Dose 10 MG; Start 03/14/16 at 22:00 Clonidine HCl (Catapres-Tts 2 Patch) 1 patch Q7D TRANSDERM Last administered on 03/14/16at 22:00; Admin Dose 1 PATCH; Start 03/14/16 at 22:00 Diltiazem HCl (Cardizem Iv) 10 mg Q4 IV Last administered on 03/18/16 09:46; Admin Dose 10 MG; Start 03/15/16 at 01:00 Lubiprostone 24 mcg 24 mcg BID PO ; Start 03/15/16 at 16:00 Diltiazem HCl (Cardizem-D5W 125 Mg/125 ml Drip) 125 ml @ 5 mls/hr TITRATE IV Last administered on 03/17/16 02:43; Admin Dose 15 MLS/HR; Start 03/16/16 at 10:30 Lorazepam 0.5 mg 0.5 mg Q8H PRN IV ANXIETY Last administered on 03/17/16 23: 12; Admin Dose 0.5 MG; Start 03/16/16 at 23:00 Total Parenteral Nutrition 1,000 ml @ 40 mls/hr Q24H IV Last administered on 03/17/16 15:19; Admin Dose 40 MLS/HR; Start 03/17/16 at 16:00 Fat Emulsion Intravenous (Liposyn Ii 20%) 250 ml @ 10.4 mls/hr Q24H IV Last administered on 03/17/16 15:50; Admin Dose 10.4 MLS/HR; Start 03/17/16 at 16: 00 Insulin Glargine 50 unit 50 unit QHS SC ; Start 03/18/16 at 21:00 Potassium Chloride (KCl 40 MEQ/250 ML NS) 250 ml @ 62.5 mls/hr Q4H IVPB Last administered on 03/18/16 09:47; Admin Dose 62.5 MLS/HR; Start 03/18/16 at 06:30; Stop 03/18/16 at 14:29 Insulin Aspart (Novolog Insulin Pen) (Adult SC Insulin - Moder... Q6 SC Last administered on 03/18/16t 07:03; Admin Dose 8 UNIT; Start 03/18/16 at 06:30 Assessment/Plan Chief Complaint/Hosp Course IMPRESSION: An 85-year-old female with: 1. Acute hypoxemic respiratory failure. Significant aspiration component significant neuromuscular weakness. 2. Chronic obstructive pulmonary disease exacerbation. 3. Bronchitis. As above persistent leukocytosis 4. Metabolic acidosis, clinically improved worsening renal function possibly secondary to diuretics 5. History of diabetes. Poor Glycemic control exacerbated by steroids 6. History of hypertension. 7. Atrial fibrillation with rapid ventricular rate 8. Coronary artery disease. 9. Anemia likely possibly dilutional questionable GI loss RECOMMENDATIONS: 1. Deep suctioning. Aggressive pulmonary toilet. Keep nothing by mouth 2. Supplemental oxygen 3. Antibiotics. 4. Bronchodilators. 5. Noninvasive positive pressure ventilation if needed. 6. Speech therapy recommendations continue aspiration precautions 7. Rate control per cardiology 8. GI evaluation for anemia 9. Correction of hyponatremia and hypokalemia 10. TPN Prognosis guarded. Problems: SHIVA PERES MD, [facility] Mar 18, 2016 10:32
--- NOTE | 2016-03-18 11:26 | CONS ---
Date/Time of Note Date/Time of Note DATE: 03/18/16 TIME: 11:11 Assessment/Plan Assessment/Plan Chief Complaint/Hosp Course ID PROGRESS NOTE 24H INTERVAL SUMMARY 85 yo obese F, noncommunicative, Afib w/RVR on Cardizem GTT, GIB-> melena stools and coffee-ground emesis s/p PRBCs FRI, supplemental O2 * EGD delayed due to Rapid Afib * CXR: Left lower lobe atelectasis or infiltrate and right base subsegmental atelectasis again seen. Left pleural effusion. Mild pulmonary vascular congestion. PHYSICAL EXAMINATION: GENERAL: 85 yo F -> non-communicative HEENT: Unremarkable NECK: Supple, trachea midline. CHEST: Rise symmetrical, course BS + rales ABDOMEN: Soft, EXTREMITIES: Warm ID ASSESSMENT: 85 yo Obese F admit with: 1. Acute respiratory failure = MULTI-FACTORIAL: Symptomatic anemia + COPD exacerbation + pulmonary edema in setting of Afib w/RVR w/elevated BNP + ASP PNA 2. Aspiration HCAP: * (+)Laryngeal congestion => concern silent aspiration due to significant neuromuscular weakness and inability to clear secretions. * RESPIRATORY CULTURE Final Organism 1 ESCHERICHIA COLI QUANTITY 2+ Organism 2 NO NORMAL RESPIRATORY YANCI QUANTITY . 2. Gram-negative rods urinary tract infection = ESCHERICHIA COLI 3. Acute renal failure. 4. Paroxysmal atrial fibrillation w/RVR = contributing to pulmonary edema 5. Diabetes. 6. Symptomatic anemia = GIB, GI on case pending EGD 7. 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 8. SIRS w/Leukocytosis = partial IV steroids demargination 9. Dysphagia in setting AMS = swallow evaluation pending 10. Osteopenia/Osteoporosis-> severe L3 compression fracture with evidence of vertebroplasty. (+)IMMUNOCOMPROMISED HOST: Patient is immunosuppressed on Mycophenolate. (-)MRSA Nares; (-)Influenza A/B Screen CURRENT ABX: Merrem #5 s/p Levaquin x 14 days s/p Bactrim ID PLAN: Pending GI EGD/colo evaluation Continue Merrem -> taper to Ceftriaxone if improves post GI Procedures Aspiration precautions . Problems: Consultation Date/Type/Reason Admit Date/Time Feb 29, 2016 at 18:54 Initial Consult Date 03/17/16 Type of Consultation: id Referring Provider: KANCHAN LEONARD MD Exam/Review of Systems Vital Signs Vitals Vital Signs Date Time Temp Pulse Resp B/P Pulse Ox O2 Delivery O2 Flow Rate FiO2 03/18/16 08:00 97 03/18/16 08:00 Nasal Cannula 2.0 03/18/16 07:58 26 97 03/18/16 07:00 158/89 03/18/16 04:00 97.6 03/18/16 01:36 22 Intake and Output 03/17/16 03/17/16 03/18/16 15:00 23:00 07:00 Intake Total 490.0 ml 628.2 ml 352.8 ml Output Total 890 ml 962 ml 434 ml Balance -400.0 ml -333.8 ml -81.2 ml Results Result Diagram: 03/18/16 0410 03/18/16 0410 Results 24 hrs Laboratory Tests Test 03/17/16 11:38 03/17/16 17:44 03/17/16 21:32 03/18/16 03:25 Bedside Glucose 80 161 208 290 H Test 03/18/16 04:10 03/18/16 07:01 03/18/16 07:30 Anion Gap 18 H Band Neutrophils % 1.0 Blood Morphology Comment Blood Urea Nitrogen 52 H Calcium Level 8.9 Carbon Dioxide Level 29 Chloride Level 113 H Creatinine 0.99 Glucose Level 292 #H Hematocrit 34.0 L Hemoglobin 11.1 L Lymphocytes # 0.6 L Lymphocytes % 4.0 L Magnesium Level 1.9 Mean Corpuscular Hemoglobin 27.1 L Mean Corpuscular Hemoglobin Concent 32.6 Mean Corpuscular Volume 83.2 Mean Platelet Volume 8.0 Monocytes # 0.6 Monocytes % 4.0 Neutrophils # 12.7 H Neutrophils % 91.0 H Phosphorus Level 2.9 Platelet Count 195 Potassium Level 3.2 L Red Blood Count 4.09 L Red Cell Distribution Width 16.0 H Sodium Level 157 H White Blood Count 14.0 H Bedside Glucose 298 H 276 H Medications Medications Current Medications Brimonidine Tartrate (Alphagan 0.2%) 1 drop Q8 BOTH EYES Last administered on t 05:11; Admin Dose 1 DROP; Start 03/01/16 at 06:00 Latanoprost (Xalatan) 1 drop QHS BOTH EYES Last administered on 03/17/16at 21: 21; Admin Dose 1 DROP; Start 03/01/16 at 21:00 Mycophenolate Mofetil (Cellcept) 500 mg BID PO Last administered on 03/14/16 08:44; Admin Dose 500 MG; Start 03/01/16 at 09:00 Acetaminophen (Tylenol Tab) 650 mg Q4H PRN PO pain/fever Last administered on 03/08/16at 12:49; Admin Dose 650 MG; Start 03/01/16 at 01:00 Ondansetron HCl (Zofran Inj) 4 mg Q4H PRN IV nausea Last administered on at 02:23; Admin Dose 4 MG; Start 03/01/16 at 01:00 Morphine Sulfate (morphine) 2 mg Q2H PRN IV pain Last administered on 03/18/16 09:54; Admin Dose 2 MG; Start 03/01/16 at 01:00 Miscellaneous Information 1 ea NOTE XX ; Start 03/01/16 at 02:00 Glucose (Glutose) 15 gm Q15M PRN PO DECREASED GLUCOSE; Start 03/01/16 at 02:00 Glucose (Glutose) 22.5 gm Q15M PRN PO DECREASED GLUCOSE; Start 03/01/16 at 02: 00 Dextrose (D50w Syringe) 25 ml Q15M PRN IV DECREASED GLUCOSE Last administered on 03/13/16at 13:36; Admin Dose 25 ML; Start 03/01/16 at 02:00 Dextrose (D50w Syringe) 50 ml Q15M PRN IV DECREASED GLUCOSE Last administered on 03/13/16at 12:30; Admin Dose 50 ML; Start 03/01/16 at 02:00 Glucagon (Glucagen) 1 mg Q15M PRN IM DECREASED GLUCOSE; Start 03/01/16 at 02: 00 Glucose (Glutose) 15 gm Q15M PRN BUCCAL DECREASED GLUCOSE; Start 03/01/16 at 02:00 Diagnostic Test (Pha) (Accucheck) 1 ea 02 XX Last administered on 03/18/16 02: 00; Admin Dose 1 EA; Start 03/02/16 at 02:00 Bisacodyl (Dulcolax Supp) 10 mg DAILY PRN [place]ST[place] Last administered on 03/08/16at 23:47; Admin Dose 10 MG; Start 03/03/16 at 11:30 Clotrimazole (Lotrimin Cr) 1 applic BID TOP Last administered on 03/18/16 09:47 ; Admin Dose 1 APPLIC; Start 03/03/16 at 13:30 Docusate Sodium (Colace) 100 mg BID PO Last administered on 03/14/16 08:45; Admin Dose 100 MG; Start 03/05/16 at 10:30 Sodium Chloride (Deep Sea) 1 spray Q4H PRN NASAL NASAL CONGESTION; Start 03/07 at 17:30 Ondansetron HCl (Zofran Inj) 4 mg Q4H PRN IV NAUSEA AND/OR VOMITING; Start at 23:30 Pantoprazole (Protonix Iv) 40 mg BID@06,18 IV Last administered on 03/18/16 05: 12; Admin Dose 40 MG; Start 03/10/16 at 06:00 Fentanyl (Duragesic 75 Mcg/Hr Patch) 1 patch Q72H TRANSDERM Last administered on 03/17/16 10:18; Admin Dose 1 PATCH; Start 03/11/16 at 09:00 Gabapentin (Neurontin) 300 mg Q8 GTB Last administered on 03/14/16 14:46; Admin Dose 300 MG; Start 03/13/16 at 06:00 Methylprednisolone Sodium Succinate (Solu-Medrol) 30 mg DAILY IV Last administered on 03/18/16 09:46; Admin Dose 30 MG; Start 03/13/16 at 09:30 Lactulose 20 gm 20 gm Q6 PO Last administered on 03/14/16at 12:19; Admin Dose 20 GM; Start 03/13/16 at 18:00 Meropenem/Sodium Chloride (Merrem/NS) 100 ml @ 200 mls/hr Q12 IVPB Last administered on 03/18/16 09:46; Admin Dose 200 MLS/HR; Start 03/13/16 at 17:00 Hydralazine HCl (Apresoline) 10 mg Q6H PRN IV SBP>160 Last administered on 23:18; Admin Dose 10 MG; Start 03/14/16 at 22:00 Clonidine HCl (Catapres-Tts 2 Patch) 1 patch Q7D TRANSDERM Last administered on 03/14/16 22:00; Admin Dose 1 PATCH; Start 03/14/16 at 22:00 Diltiazem HCl (Cardizem Iv) 10 mg Q4 IV Last administered on 03/18/16 09:46; Admin Dose 10 MG; Start 03/15/16 at 01:00 Lubiprostone 24 mcg 24 mcg BID PO ; Start 03/15/16 at 16:00 Diltiazem HCl (Cardizem-D5W 125 Mg/125 ml Drip) 125 ml @ 5 mls/hr TITRATE IV Last administered on 03/17/16at 02:43; Admin Dose 15 MLS/HR; Start 03/16/16 at 10:30 Lorazepam 0.5 mg 0.5 mg Q8H PRN IV ANXIETY Last administered on 03/17/16at 23: 12; Admin Dose 0.5 MG; Start 03/16/16 at 23:00 Total Parenteral Nutrition 1,000 ml @ 40 mls/hr Q24H IV Last administered on 03/17/16at 15:19; Admin Dose 40 MLS/HR; Start 03/17/16 at 16:00 Fat Emulsion Intravenous (Liposyn Ii 20%) 250 ml @ 10.4 mls/hr Q24H IV Last administered on 03/17/16at 15:50; Admin Dose 10.4 MLS/HR; Start 03/17/16 at 16: 00 Insulin Glargine 50 unit 50 unit QHS SC ; Start 03/18/16 at 21:00 Potassium Chloride (KCl 40 MEQ/250 ML NS) 250 ml @ 62.5 mls/hr Q4H IVPB Last administered on 03/18/16 09:47; Admin Dose 62.5 MLS/HR; Start 03/18/16 at 06:30; Stop 03/18/16 at 14:29 Insulin Aspart (Novolog Insulin Pen) (Adult SC Insulin - Moder... Q6 SC Last administered on 03/18/16 07:03; Admin Dose 8 UNIT; Start 03/18/16 at 06:30 MILAGRO RUIZ NP Mar 18, 2016 11:23
[2016-03-18] MEDS ORDERED: MAGNESIUM SULFATE 2 GM/50 ML 50 ML IVPB ONE (11:30)
--- NOTE | 2016-03-18 11:39 | CONS ---
Date/Time of Note Date/Time of Note DATE: 03/18/16 TIME: 11:31 Assessment/Plan Assessment/Plan Additional Assessment/Plan Atrial fibrillation Respiratory failure Preserved ejection fraction Possible aspiration pneumonia Hypertension Anemia Hypernatremia -Patient's heart rate has improved and currently off the IV Cardizem drip. Unfortunately, patient unable to take by mouth medications and receiving IV Cardizem pushes every 4 hours. Would continue given heart rate overall better controlled. Anticoagulation on hold secondary to possible GI bleed. Patient with history of hypertension and blood pressure trend has been labile. Hydralazine when necessary is available for episodes of hypertension. From a cardiovascular standpoint, heart rhythm is better controlled and if the patient is planned to undergo EGD, she is at an intermediate risk from a cardiovascular standpoint at the current time. With that said, her respiratory is more of a concern at the current time. Patient with hypernatremia and would consider renal involvement for assistance with management with fluids as well as her likely needing intermittent diuretics. Consultation Date/Type/Reason Admit Date/Time Feb 29, 2016 at 18:54 Initial Consult Date 03/17/16 Type of Consultation: cv Referring Provider: KANCHAN LEONARD MD 24 HR Interval Summary Free Text/Dictation Patient seen and examined, discuss with patient's nurse, heart rate has improved overnight and off IV Cardizem drip. Exam/Review of Systems Vital Signs Vitals Vital Signs Date Time Temp Pulse Resp B/P Pulse Ox O2 Delivery O2 Flow Rate FiO2 03/18/16 08:00 97 03/18/16 08:00 Nasal Cannula 2.0 03/18/16 07:58 26 97 03/18/16 07:00 158/89 03/18/16 04:00 97.6 03/18/16 01:36 22 Intake and Output 03/17/16 03/17/16 03/18/16 15:00 23:00 07:00 Intake Total 490.0 ml 628.2 ml 352.8 ml Output Total 890 ml 962 ml 434 ml Balance -400.0 ml -333.8 ml -81.2 ml Exam Moaning at times Constitutional: alert Head: normocephalic Respiratory: other (course breath sounds bilaterally with minimal scattered rhonchi, no wheezing) Cardiovascular: irregular rhythm, other (S1-S2 heard) Gastrointestinal: bowel sounds, non-tender, other (bowel sounds positive), soft Extremities: edema (trace) Results Result Diagram: 03/18/16 0410 03/18/16 0410 Results 24 hrs Laboratory Tests Test 03/17/16 11:38 03/17/16 17:44 03/17/16 21:32 03/18/16 03:25 Bedside Glucose 80 161 208 290 H Test 03/18/16 04:10 03/18/16 07:01 03/18/16 07:30 Anion Gap 18 H Band Neutrophils % 1.0 Blood Morphology Comment Blood Urea Nitrogen 52 H Calcium Level 8.9 Carbon Dioxide Level 29 Chloride Level 113 H Creatinine 0.99 Glucose Level 292 #H Hematocrit 34.0 L Hemoglobin 11.1 L Lymphocytes # 0.6 L Lymphocytes % 4.0 L Magnesium Level 1.9 Mean Corpuscular Hemoglobin 27.1 L Mean Corpuscular Hemoglobin Concent 32.6 Mean Corpuscular Volume 83.2 Mean Platelet Volume 8.0 Monocytes # 0.6 Monocytes % 4.0 Neutrophils # 12.7 H Neutrophils % 91.0 H Phosphorus Level 2.9 Platelet Count 195 Potassium Level 3.2 L Red Blood Count 4.09 L Red Cell Distribution Width 16.0 H Sodium Level 157 H White Blood Count 14.0 H Bedside Glucose 298 H 276 H Medications Medications Current Medications Brimonidine Tartrate (Alphagan 0.2%) 1 drop Q8 BOTH EYES Last administered on t 05:11; Admin Dose 1 DROP; Start 03/01/16 at 06:00 Latanoprost (Xalatan) 1 drop QHS BOTH EYES Last administered on 03/17/16at 21: 21; Admin Dose 1 DROP; Start 03/01/16 at 21:00 Mycophenolate Mofetil (Cellcept) 500 mg BID PO Last administered on 03/14/16at 08:44; Admin Dose 500 MG; Start 03/01/16 at 09:00 Acetaminophen (Tylenol Tab) 650 mg Q4H PRN PO pain/fever Last administered on 03/08/16at 12:49; Admin Dose 650 MG; Start 03/01/16 at 01:00 Ondansetron HCl (Zofran Inj) 4 mg Q4H PRN IV nausea Last administered on at 02:23; Admin Dose 4 MG; Start 03/01/16 at 01:00 Morphine Sulfate (morphine) 2 mg Q2H PRN IV pain Last administered on 03/18/16 09:54; Admin Dose 2 MG; Start 03/01/16 at 01:00 Miscellaneous Information 1 ea NOTE XX ; Start 03/01/16 at 02:00 Glucose (Glutose) 15 gm Q15M PRN PO DECREASED GLUCOSE; Start 03/01/16 at 02:00 Glucose (Glutose) 22.5 gm Q15M PRN PO DECREASED GLUCOSE; Start 03/01/16 at 02: 00 Dextrose (D50w Syringe) 25 ml Q15M PRN IV DECREASED GLUCOSE Last administered on 03/13/16at 13:36; Admin Dose 25 ML; Start 03/01/16 at 02:00 Dextrose (D50w Syringe) 50 ml Q15M PRN IV DECREASED GLUCOSE Last administered on 03/13/16at 12:30; Admin Dose 50 ML; Start 03/01/16 at 02:00 Glucagon (Glucagen) 1 mg Q15M PRN IM DECREASED GLUCOSE; Start 03/01/16 at 02: 00 Glucose (Glutose) 15 gm Q15M PRN BUCCAL DECREASED GLUCOSE; Start 03/01/16 at 02:00 Diagnostic Test (Pha) (Accucheck) 1 ea 02 XX Last administered on 03/18/16 02: 00; Admin Dose 1 EA; Start 03/02/16 at 02:00 Bisacodyl (Dulcolax Supp) 10 mg DAILY PRN [place] CONSTIPATION Last administered on 03/08/16at 23:47; Admin Dose 10 MG; Start 03/03/16 at 11:30 Clotrimazole (Lotrimin Cr) 1 applic BID TOP Last administered on 03/18/16 09:47 ; Admin Dose 1 APPLIC; Start 03/03/16 at 13:30 Docusate Sodium (Colace) 100 mg BID PO Last administered on 03/14/16at 08:45; Admin Dose 100 MG; Start 03/05/16 at 10:30 Sodium Chloride (Deep Sea) 1 spray Q4H PRN NASAL NASAL CONGESTION; Start 03/07 at 17:30 Ondansetron HCl (Zofran Inj) 4 mg Q4H PRN IV NAUSEA AND/OR VOMITING; Start at 23:30 Pantoprazole (Protonix Iv) 40 mg BID@06,18 IV Last administered on 03/18/16 05: 12; Admin Dose 40 MG; Start 03/10/16 at 06:00 Fentanyl (Duragesic 75 Mcg/Hr Patch) 1 patch Q72H TRANSDERM Last administered on 03/17/16 10:18; Admin Dose 1 PATCH; Start 03/11/16 at 09:00 Gabapentin (Neurontin) 300 mg Q8 GTB Last administered on 03/14/16 14:46; Admin Dose 300 MG; Start 03/13/16 at 06:00 Methylprednisolone Sodium Succinate (Solu-Medrol) 30 mg DAILY IV Last administered on 03/18/16 09:46; Admin Dose 30 MG; Start 03/13/16 at 09:30 Lactulose 20 gm 20 gm Q6 PO Last administered on 03/14/16 12:19; Admin Dose 20 GM; Start 03/13/16 at 18:00 Meropenem/Sodium Chloride (Merrem/NS) 100 ml @ 200 mls/hr Q12 IVPB Last administered on 03/18/16 09:46; Admin Dose 200 MLS/HR; Start 03/13/16 at 17:00 Hydralazine HCl (Apresoline) 10 mg Q6H PRN IV SBP>160 Last administered on 23:18; Admin Dose 10 MG; Start 03/14/16 at 22:00 Clonidine HCl (Catapres-Tts 2 Patch) 1 patch Q7D TRANSDERM Last administered on 03/14/16 22:00; Admin Dose 1 PATCH; Start 03/14/16 at 22:00 Diltiazem HCl (Cardizem Iv) 10 mg Q4 IV Last administered on 03/18/16 09:46; Admin Dose 10 MG; Start 03/15/16 at 01:00 Lubiprostone 24 mcg 24 mcg BID PO ; Start 03/15/16 at 16:00 Diltiazem HCl (Cardizem-D5W 125 Mg/125 ml Drip) 125 ml @ 5 mls/hr TITRATE IV Last administered on 03/17/16 02:43; Admin Dose 15 MLS/HR; Start 03/16/16 at 10:30 Lorazepam 0.5 mg 0.5 mg Q8H PRN IV ANXIETY Last administered on 12/31/16at 23: 12; Admin Dose 0.5 MG; Start 03/16/16 at 23:00 Total Parenteral Nutrition 1,000 ml @ 40 mls/hr Q24H IV Last administered on 03/17/16at 15:19; Admin Dose 40 MLS/HR; Start 03/17/16 at 16:00 Fat Emulsion Intravenous (Liposyn Ii 20%) 250 ml @ 10.4 mls/hr Q24H IV Last administered on 03/17/16at 15:50; Admin Dose 10.4 MLS/HR; Start 03/17/16 at 16: 00 Insulin Glargine 50 unit 50 unit QHS SC ; Start 03/18/16 at 21:00 Potassium Chloride (KCl 40 MEQ/250 ML NS) 250 ml @ 62.5 mls/hr Q4H IVPB Last administered on 03/18/16 09:47; Admin Dose 62.5 MLS/HR; Start 03/18/16 at 06:30; Stop 03/18/16 at 14:29 Insulin Aspart (Adult SC Insulin - Moder... Q6 SC Last administered on 07:03; Admin Dose 8 UNIT; Start 03/18/16 at 06:30 Magnesium Sulfate (Magnesium Sulfate 2 Gm/50 ml) 50 ml @ 25 mls/hr ONCE ONCE IVPB ; Start 03/18/16 at 11:30; Stop 03/18/16 at 13:29; Status Simone Mckenna DO Mar 18, 2016 11:39
[2016-03-18] MEDS ORDERED: INSULIN ASPART [NOVOLOG] 3 ML PEN SC SCH (12:00)
[2016-03-18] MEDS ORDERED: FUROSEMIDE 20 MG INJ IV ONE (12:00)
[2016-03-18] MEDS ORDERED: FUROSEMIDE 20 MG INJ ONE (12:06)
[2016-03-18] MEDS: hydrALAzine 20 MG INJ IV PRN (12:20)
--- NOTE | 2016-03-18 12:23 | PN ---
Date/Time of Note Date/Time of Note DATE: 03/18/16 TIME: 12:16 Assessment/Plan VTE Prophylaxis VTE Prophylaxis Intervention: SCD's VTE Contraindication Reason: blood coagulation disorder Lines/Catheters IV Catheter Type (from Nrsg): PICC Line Central line still needed: Yes Urinary Cath still in place: Yes Reason Cath still needed: pres ulcer contaminated by urine Assessment/Plan Assessment/Plan 1. Hospital day 18 for this 85 yo woman with continued upper respiratory congestion. Overall, slightly improved, but still with congestion. Mild pulmonary vascular congestion, despite lasix Saturday night. Appears euvolemic, but she is hypernatremic. Echo showed normal LV function, but with elevated pulmonary artery pressures. WBC basically unchanged. Patient is immunosuppressed on Mycophenolate. * Continue meropenem per ID * Continued on oxygen * Regular suctioning * DVT prophylaxis with SCDs (concern for GI bleeding precludes anticoagulation) * PICC line successfully placed. *Swallow evaluation: she failed, but she is hypernatremic and confused at times , which may have affected results. 2. Heme-positive, though no bowel movements today. Constipation improved overall, likely secondary to her hyperglycemia and Fentanyl patch use. KUB showed colon full of fecal matter, and CT abd/pelvis showed no evidence of abdominopelvic mass, lymphadenopathy or focal acute inflammatory pathology. * PEG placement pending resolution of the tachycardia issue, according to Dr. Zuniga. GI consult by Dr. Vasquez was a few days ago, * Monitor CBC * Patient remains NPO; very thirsty, but unsafe to feed for high risk of aspiration. 3. Tachycardia with atrial fibrillation. Does not appear pre-renal. * Dr. Padgett to see patient today. * Hold Eliquis given question of GI bleeding 4. Acute Respiratory failure, secondary to bronchitis/URI/pneumonia. Reported history of asthma. Immunosuppressed with CellCept chronically * Continue nebulizers * Solu-medrol currently tapered to 30 mg daily 5. CKD: Was at baseline of 1.35 on admission, slowly improving; renal on the case. 6. Anemia, acute * s/p Transfusion of 2u PRBC a few days ago, and hgb appears stable 6. Diabetes. Blood sugars are higher today as TPN was started. I spoke to the pharmacist to reduce the dextrose and increase the free water. * Continue daily Lantus insulin and adjust as necessary. * Continue Accu-Checks and sliding scale. 7. Hypertension. Management of Clonidine, Norvasc, and Cardizem as noted above. May need titration. 8. 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 9. Chronic Pain, on fentanyl patch. Generally chronic low back pain benefits from more conservative measures, including PT, acupuncture, non-narcotic analgesics. * down to 75 mcg topically. 10 Nutrition: * NPO now * Anticipating further GI workup; may need PEG if not passing re-evaluation of swallow study. TPN started 03/17. 11. Prophylaxis: Holding Eliquis (given for atrial fibrillation) due to current concerns about GI bleeding. SCDs in place instead. Protonix for GI prophylaxis 12. Disposition: Case d/w son and daughter (both physicians) at the bedside and questions answered to their satisfaction. Son (Harshad Sarabia MD [phone]) Subjective 24 Hr Interval Summary Free Text/Dictation Eyes open, but moaning intermittently. Constitutional: no complaints Exam/Review of Systems Vital Signs Vitals Vital Signs Date Time Temp Pulse Resp B/P Pulse Ox O2 Delivery O2 Flow Rate FiO2 03/18/16 08:00 97 03/18/16 08:00 Nasal Cannula 2.0 03/18/16 07:58 26 97 03/18/16 07:00 158/89 03/18/16 04:00 97.6 03/18/16 01:36 22 Intake and Output 03/17/16 03/17/16 03/18/16 15:00 23:00 07:00 Intake Total 490.0 ml 628.2 ml 352.8 ml Output Total 890 ml 962 ml 434 ml Balance -400.0 ml -333.8 ml -81.2 ml Exam Constitutional: other (Moaning) Psych: confusion Head: normocephalic Eyes: nl conjunctiva ENMT: nl external ears & nose Respiratory: crackles/rales Cardiovascular: regular rate and rhythm Gastrointestinal: soft Musculoskeletal: swelling Results Result Diagram: 03/18/1640903/18/160 Results 24 hrs Laboratory Tests Test 03/17/16 17:44 03/17/16 21:32 03/18/16 03:25 03/18/16 04:10 Bedside Glucose 161 208 290 H Anion Gap 18 H Band Neutrophils % 1.0 Blood Morphology Comment Blood Urea Nitrogen 52 H Calcium Level 8.9 Carbon Dioxide Level 29 Chloride Level 113 H Creatinine 0.99 Glucose Level 292 #H Hematocrit 34.0 L Hemoglobin 11.1 L Lymphocytes # 0.6 L Lymphocytes % 4.0 L Magnesium Level 1.9 Mean Corpuscular Hemoglobin 27.1 L Mean Corpuscular Hemoglobin Concent 32.6 Mean Corpuscular Volume 83.2 Mean Platelet Volume 8.0 Monocytes # 0.6 Monocytes % 4.0 Neutrophils # 12.7 H Neutrophils % 91.0 H Phosphorus Level 2.9 Platelet Count 195 Potassium Level 3.2 L Red Blood Count 4.09 L Red Cell Distribution Width 16.0 H Sodium Level 157 H White Blood Count 14.0 H Test 03/18/16 07:01 03/18/16 07:30 Bedside Glucose 298 H 276 H Medications Medications Current Medications Brimonidine Tartrate (Alphagan 0.2%) 1 drop Q8 BOTH EYES Last administered on 05:11; Admin Dose 1 DROP; Start 03/01/16 at 06:00 Latanoprost (Xalatan) 1 drop QHS BOTH EYES Last administered on 03/17/16 21: 21; Admin Dose 1 DROP; Start 03/01/16 at 21:00 Mycophenolate Mofetil (Cellcept) 500 mg BID PO Last administered on 03/14/16 08:44; Admin Dose 500 MG; Start 03/01/16 at 09:00 Acetaminophen (Tylenol Tab) 650 mg Q4H PRN PO pain/fever Last administered on 03/08/16 12:49; Admin Dose 650 MG; Start 03/01/16 at 01:00 Ondansetron HCl (Zofran Inj) 4 mg Q4H PRN IV nausea Last administered on 02:23; Admin Dose 4 MG; Start 03/01/16 at 01:00 Morphine Sulfate (morphine) 2 mg Q2H PRN IV pain Last administered on 03/18/16 09:54; Admin Dose 2 MG; Start 03/01/16 at 01:00 Miscellaneous Information 1 ea NOTE XX ; Start 03/01/16 at 02:00 Glucose (Glutose) 15 gm Q15M PRN PO DECREASED GLUCOSE; Start 03/01/16 at 02:00 Glucose (Glutose) 22.5 gm Q15M PRN PO DECREASED GLUCOSE; Start 03/01/16 at 02: 00 Dextrose (D50w Syringe) 25 ml Q15M PRN IV DECREASED GLUCOSE Last administered on 03/13/16at 13:36; Admin Dose 25 ML; Start 03/01/16 at 02:00 Dextrose (D50w Syringe) 50 ml Q15M PRN IV DECREASED GLUCOSE Last administered on 03/13/16at 12:30; Admin Dose 50 ML; Start 03/01/16 at 02:00 Glucagon (Glucagen) 1 mg Q15M PRN IM DECREASED GLUCOSE; Start 03/01/16 at 02: 00 Glucose (Glutose) 15 gm Q15M PRN BUCCAL DECREASED GLUCOSE; Start 03/01/16 at 02:00 Diagnostic Test (Pha) (Accucheck) 1 ea 02 XX Last administered on 03/18/16 02: 00; Admin Dose 1 EA; Start 03/02/16 at 02:00 Bisacodyl (Dulcolax Supp) 10 mg DAILY PRN [place] CONSTIPATION Last administered on 03/08/16at 23:47; Admin Dose 10 MG; Start 03/03/16 at 11:30 Clotrimazole (Lotrimin Cr) 1 applic BID TOP Last administered on 03/18/16 09:47 ; Admin Dose 1 APPLIC; Start 03/03/16 at 13:30 Docusate Sodium (Colace) 100 mg BID PO Last administered on 03/14/16at 08:45; Admin Dose 100 MG; Start 03/05/16 at 10:30 Sodium Chloride (Deep Sea) 1 spray Q4H PRN NASAL NASAL CONGESTION; Start 03/07 at 17:30 Ondansetron HCl (Zofran Inj) 4 mg Q4H PRN IV NAUSEA AND/OR VOMITING; Start at 23:30 Pantoprazole (Protonix Iv) 40 mg BID@06,18 IV Last administered on 03/18/16 05: 12; Admin Dose 40 MG; Start 03/10/16 at 06:00 Fentanyl (Duragesic 75 Mcg/Hr Patch) 1 patch Q72H TRANSDERM Last administered on 03/17/16at 10:18; Admin Dose 1 PATCH; Start 03/11/16 at 09:00 Gabapentin (Neurontin) 300 mg Q8 GTB Last administered on 03/14/16 14:46; Admin Dose 300 MG; Start 03/13/16 at 06:00 Methylprednisolone Sodium Succinate (Solu-Medrol) 30 mg DAILY IV Last administered on 03/18/16 09:46; Admin Dose 30 MG; Start 03/13/16 at 09:30 Lactulose 20 gm 20 gm Q6 PO Last administered on 03/14/16 12:19; Admin Dose 20 GM; Start 03/13/16 at 18:00 Meropenem/Sodium Chloride (Merrem/NS) 100 ml @ 200 mls/hr Q12 IVPB Last administered on 03/18/16 09:46; Admin Dose 200 MLS/HR; Start 03/13/16 at 17:00 Hydralazine HCl (Apresoline) 10 mg Q6H PRN IV SBP>160 Last administered on 23:18; Admin Dose 10 MG; Start 03/14/16 at 22:00 Clonidine HCl (Catapres-Tts 2 Patch) 1 patch Q7D TRANSDERM Last administered on 03/14/16 22:00; Admin Dose 1 PATCH; Start 03/14/16 at 22:00 Diltiazem HCl (Cardizem Iv) 10 mg Q4 IV Last administered on 03/18/16 09:46; Admin Dose 10 MG; Start 03/15/16 at 01:00 Lubiprostone 24 mcg 24 mcg BID PO ; Start 03/15/16 at 16:00 Diltiazem HCl (Cardizem-D5W 125 Mg/125 ml Drip) 125 ml @ 5 mls/hr TITRATE IV Last administered on 03/17/16 02:43; Admin Dose 15 MLS/HR; Start 03/16/16 at 10:30 Lorazepam 0.5 mg 0.5 mg Q8H PRN IV ANXIETY Last administered on 03/17/16 23: 12; Admin Dose 0.5 MG; Start 03/16/16 at 23:00 Total Parenteral Nutrition 1,000 ml @ 40 mls/hr Q24H IV Last administered on 03/17/16 15:19; Admin Dose 40 MLS/HR; Start 03/17/16 at 16:00 Fat Emulsion Intravenous (Liposyn Ii 20%) 250 ml @ 10.4 mls/hr Q24H IV Last administered on 03/17/16at 15:50; Admin Dose 10.4 MLS/HR; Start 03/17/16 at 16: 00 Insulin Glargine 50 unit 50 unit QHS SC ; Start 03/18/16 at 21:00 Potassium Chloride (KCl 40 MEQ/250 ML NS) 250 ml @ 62.5 mls/hr Q4H IVPB Last administered on 03/18/16 09:47; Admin Dose 62.5 MLS/HR; Start 03/18/16 at 06:30; Stop 03/18/16 at 14:29 Insulin Aspart (Adult SC Insulin - Moder... Q6 SC Last administered on 07:03; Admin Dose 8 UNIT; Start 03/18/16 at 06:30 Magnesium Sulfate (Magnesium Sulfate 2 Gm/50 ml) 50 ml @ 25 mls/hr ONCE ONCE IVPB ; Start 03/18/16 at 11:30; Stop 03/18/16 at 13:29 KANCHAN LEONARD MD Mar 18, 2016 12:23
[2016-03-18] MEDS ORDERED: MAGNESIUM SULFATE 2 GM/50 ML 50 ML ONE (16:00)
[2016-03-18] MEDS: TPN 1,000 ML IV SCH (16:01)
[2016-03-18] MEDS: FAT EMULSION 20% 250 ML IV SCH (16:01)
[2016-03-18] MEDS: DEXTROSE 5% 1,000 ML IV SCH (17:12)
--- NOTE | 2016-03-18 18:31 | CONS ---
Date/Time of Note Date/Time of Note DATE: 03/18/16 TIME: 18:31 Assessment/Plan Assessment/Plan Chief Complaint/Hosp Course Assessment and Plan: 1. Heme-positive anemia: EGD canceled 03-16-16 due to A. fib. - transfuse PRN hgb < 8 - if necessary, cardiology rate EGD as an intermediate risk 2. Tachycardia with atrial fibrillation. - await cardiac stabilization 3. Constipation: resolving 4. Acute Respiratory failure, secondary to bronchitis/URI/pneumonia. Reported history of asthma. Immunosuppressed with CellCept chronically - management per primary and other consultants 5. CKD: Now roughly back to baseline. 6. Poor nutrition/protein calorie malnutrition - continue TPN - awaiting swallow eval - Consider PEG per Dr. Zuniga if pt do not pass swallow eval. 7. Family unhappy: pt's son who is a MD has several complaints today. Today's issue is heart and abnormal electrolytes. I again stressed to communicate this to appropriate consultants. Problems: Consultation Date/Type/Reason Admit Date/Time Feb 29, 2016 at 18:54 Initial Consult Date 03/17/16 Type of Consultation: GI Referring Provider: KANCHAN LEONARD MD 24 HR Interval Summary Free Text/Dictation Eyes open, but moaning intermittently. Family at bedside. Exam/Review of Systems Vital Signs Vitals Vital Signs Date Time Temp Pulse Resp B/P Pulse Ox O2 Delivery O2 Flow Rate FiO2 03/18/16 16:00 136 03/18/16 13:43 97 2.0 03/18/16 13:43 22 Nasal Cannula 03/18/16 13:00 116/62 03/18/16 12:00 97.8 03/18/16 01:36 22 Intake and Output 03/17/16 03/17/16 03/18/16 15:00 23:00 07:00 Intake Total 490.0 ml 628.2 ml 352.8 ml Output Total 890 ml 962 ml 434 ml Balance -400.0 ml -333.8 ml -81.2 ml Exam Constitutional: frail Psych: confusion Head: atraumatic, normocephalic Eyes: EOMI, nl conjunctiva, nl lids, nl sclera ENMT: mucosa pink and moist, nl external ears & nose, nl lips & teeth, nl nasal mucosa & septum Neck: non-tender, supple Respiratory: clear to auscultation, normal air movement Cardiovascular: nl pulses, regular rate and rhythm Gastrointestinal: bowel sounds, non-tender, soft Results Result Diagram: 03/18/1640903/18/16 041 Results 24 hrs Laboratory Tests Test 03/17/16 21:32 03/18/16 03:25 03/18/16 04:10 03/18/16 07:01 Bedside Glucose 208 290 H 298 H Anion Gap 18 H Band Neutrophils % 1.0 Blood Morphology Comment Blood Urea Nitrogen 52 H Calcium Level 8.9 Carbon Dioxide Level 29 Chloride Level 113 H Creatinine 0.99 Glucose Level 292 #H Hematocrit 34.0 L Hemoglobin 11.1 L Lymphocytes # 0.6 L Lymphocytes % 4.0 L Magnesium Level 1.9 Mean Corpuscular Hemoglobin 27.1 L Mean Corpuscular Hemoglobin Concent 32.6 Mean Corpuscular Volume 83.2 Mean Platelet Volume 8.0 Monocytes # 0.6 Monocytes % 4.0 Neutrophils # 12.7 H Neutrophils % 91.0 H Phosphorus Level 2.9 Platelet Count 195 Potassium Level 3.2 L Red Blood Count 4.09 L Red Cell Distribution Width 16.0 H Sodium Level 157 H White Blood Count 14.0 H Test 03/18/16 07:30 03/18/16 12:12 03/18/16 17:06 Bedside Glucose 276 H 207 223 H Medications Medications Current Medications Brimonidine Tartrate (Alphagan 0.2%) 1 drop Q8 BOTH EYES Last administered on t 13:44; Admin Dose 1 DROP; Start 03/01/16 at 06:00 Latanoprost (Xalatan) 1 drop QHS BOTH EYES Last administered on 03/17/16at 21: 21; Admin Dose 1 DROP; Start 03/01/16 at 21:00 Mycophenolate Mofetil (Cellcept) 500 mg BID PO Last administered on 03/14/16at 08:44; Admin Dose 500 MG; Start 03/01/16 at 09:00 Acetaminophen (Tylenol Tab) 650 mg Q4H PRN PO pain/fever Last administered on 03/08/16 12:49; Admin Dose 650 MG; Start 03/01/16 at 01:00 Ondansetron HCl (Zofran Inj) 4 mg Q4H PRN IV nausea Last administered on 02:23; Admin Dose 4 MG; Start 03/01/16 at 01:00 Morphine Sulfate (morphine) 2 mg Q2H PRN IV pain Last administered on 03/18/16 09:54; Admin Dose 2 MG; Start 03/01/16 at 01:00 Miscellaneous Information 1 ea NOTE XX ; Start 03/01/16 at 02:00 Glucose (Glutose) 15 gm Q15M PRN PO DECREASED GLUCOSE; Start 03/01/16 at 02:00 Glucose (Glutose) 22.5 gm Q15M PRN PO DECREASED GLUCOSE; Start 03/01/16 at 02: 00 Dextrose (D50w Syringe) 25 ml Q15M PRN IV DECREASED GLUCOSE Last administered on 03/13/16 13:36; Admin Dose 25 ML; Start 03/01/16 at 02:00 Dextrose (D50w Syringe) 50 ml Q15M PRN IV DECREASED GLUCOSE Last administered on 03/13/16at 12:30; Admin Dose 50 ML; Start 03/01/16 at 02:00 Glucagon (Glucagen) 1 mg Q15M PRN IM DECREASED GLUCOSE; Start 03/01/16 at 02: 00 Glucose (Glutose) 15 gm Q15M PRN BUCCAL DECREASED GLUCOSE; Start 03/01/16 at 02:00 Diagnostic Test (Pha) (Accucheck) 1 ea 02 XX Last administered on 03/18/16 02: 00; Admin Dose 1 EA; Start 03/02/16 at 02:00 Bisacodyl (Dulcolax Supp) 10 mg DAILY PRN [place] CONSTIPATION Last administered on 03/08/16 23:47; Admin Dose 10 MG; Start 03/03/16 at 11:30 Clotrimazole (Lotrimin Cr) 1 applic BID TOP Last administered on 03/18/16 09:47 ; Admin Dose 1 APPLIC; Start 03/03/16 at 13:30 Docusate Sodium (Colace) 100 mg BID PO Last administered on 03/14/16 08:45; Admin Dose 100 MG; Start 03/05/16 at 10:30 Sodium Chloride (Deep Sea) 1 spray Q4H PRN NASAL NASAL CONGESTION; Start 03/07 at 17:30 Ondansetron HCl (Zofran Inj) 4 mg Q4H PRN IV NAUSEA AND/OR VOMITING; Start at 23:30 Pantoprazole (Protonix Iv) 40 mg BID@06,18 IV Last administered on 03/18/16 17: 16; Admin Dose 40 MG; Start 03/10/16 at 06:00 Fentanyl (Duragesic 75 Mcg/Hr Patch) 1 patch Q72H TRANSDERM Last administered on 03/17/16at 10:18; Admin Dose 1 PATCH; Start 03/11/16 at 09:00 Gabapentin (Neurontin) 300 mg Q8 GTB Last administered on 03/14/16at 14:46; Admin Dose 300 MG; Start 03/13/16 at 06:00 Methylprednisolone Sodium Succinate (Solu-Medrol) 30 mg DAILY IV Last administered on 03/18/16 09:46; Admin Dose 30 MG; Start 03/13/16 at 09:30 Lactulose 20 gm 20 gm Q6 PO Last administered on 03/14/16at 12:19; Admin Dose 20 GM; Start 03/13/16 at 18:00 Meropenem/Sodium Chloride (Merrem/NS) 100 ml @ 200 mls/hr Q12 IVPB Last administered on 03/18/16 09:46; Admin Dose 200 MLS/HR; Start 03/13/16 at 17:00 Hydralazine HCl (Apresoline) 10 mg Q6H PRN IV SBP>160 Last administered on 12:20; Admin Dose 10 MG; Start 03/14/16 at 22:00 Clonidine HCl (Catapres-Tts 2 Patch) 1 patch Q7D TRANSDERM Last administered on 03/14/16at 22:00; Admin Dose 1 PATCH; Start 03/14/16 at 22:00 Diltiazem HCl (Cardizem Iv) 10 mg Q4 IV Last administered on 03/18/16 17:13; Admin Dose 10 MG; Start 03/15/16 at 01:00 Lubiprostone 24 mcg 24 mcg BID PO ; Start 03/15/16 at 16:00 Diltiazem HCl (Cardizem-D5W 125 Mg/125 ml Drip) 125 ml @ 5 mls/hr TITRATE IV Last administered on 03/17/16at 02:43; Admin Dose 15 MLS/HR; Start 12/30/16 at 10:30 Lorazepam 0.5 mg 0.5 mg Q8H PRN IV ANXIETY Last administered on 03/17/16at 23: 12; Admin Dose 0.5 MG; Start 03/16/16 at 23:00 Total Parenteral Nutrition 1,000 ml @ 40 mls/hr Q24H IV Last administered on 16:01; Admin Dose 40 MLS/HR; Start 03/17/16 at 16:00 Fat Emulsion Intravenous (Liposyn Ii 20%) 250 ml @ 10.4 mls/hr Q24H IV Last administered on 03/18/16 16:01; Admin Dose 10.4 MLS/HR; Start 03/17/16 at 16:00 Insulin Glargine (Lantus) 50 unit QHS SC ; Start 03/18/16 at 21:00 Insulin Aspart (Adult SC Insulin - Moder... Q6 SC Last administered on 17:11; Admin Dose 6 UNIT; Start 03/18/16 at 06:30 Dextrose (D5W) 1,000 ml @ 60 mls/hr [id number] IV Last administered on 03/18/16 17:12; Admin Dose 60 MLS/HR; Start 03/18/16 at 16:30 DEONTE DUARTE MD Mar 18, 2016 18:31
[2016-03-18] MEDS: LORAZEPAM 2 MG INJ IV PRN (18:59)
--- NOTE | 2016-03-18 19:18 | RADRPT ---
PROCEDURE: XR Chest. CLINICAL INDICATION: Pneumonia, CHF TECHNIQUE: Single frontal chest x-ray. COMPARISON: 03/17/2016 FINDINGS: There is stable mild bibasilar atelectasis. No acute infiltrate, pneumothorax or significant pleura l effusion is identified. Left-sided PICC line remains in place. There is stable mild cardiomegaly . Aortic atherosclerotic calcification is noted. The osseous structures are unremarkable. IMPRESSION: 1. Stable mild cardiomegaly and aortic atherosclerosis. 2. Left-sided PICC line remains in place. 3. Stable mild bibasilar atelectasis. 4. No evidence of acute cardiopulmonary process. RPTAT: QQ .Celio Yi MD, MD Date Time Electronically viewed and signed by .Celio Yi MD, on 03/18/2016 10:54 .R/
[2016-03-18] MEDS: LATANOPROST 0.005% 2.5 ML OPH BOTH EYES SCH (21:09)
[2016-03-18] MEDS: INSULIN GLARGINE [LANtus] 3 ML PEN SC SCH (21:34)
[2016-03-19] VITALS (28 sets, daily range): BP systolic 110–196; BP diastolic 42–156; PULSE 77–129; RESP 16–40
[2016-03-19] MEDS: Insulin NOVOLOG SS MODERATE Algorithm(NPO/TPN/ENTERAL FEEDS) SC SCH ×4 (00:46→17:24)
[2016-03-19] MEDS: hydrALAzine 20 MG INJ IV PRN (00:48)
[2016-03-19] MEDS: DILTIAZEM 25 MG INJ IV SCH ×6 (00:53→21:47)
[2016-03-19] MEDS: ALBUTEROL/IPRATROPIUM (NEB) 3 ML AMP HHN SCH ×4 (01:31→19:59)
[2016-03-19] MEDS: morphine 2 MG INJ IV PRN (01:55)
[2016-03-19] MEDS: ACCUCHECK AT 2AM (Patients on SS coverage) XX SCH (02:00)
[2016-03-19] MEDS: BRIMONIDINE 0.2% 5 ML BTL BOTH EYES SCH ×3 (05:45→21:48)
[2016-03-19] MEDS: PANTOPRAZOLE 40 MG INJ IV SCH ×2 (05:45→17:30)
[2016-03-19] MEDS: GABAPENTIN 300 MG CAP GTB SCH ×3 (05:45→21:49)
[2016-03-19] MEDS: LACTULOSE 30ML CUP PO SCH ×3 (05:46→17:28)
--- NOTE | 2016-03-19 07:52 | CONS ---
Date/Time of Note Date/Time of Note DATE: 03/19/16 TIME: 07:49 Assessment/Plan Assessment/Plan Chief Complaint/Hosp Course Assessment and Plan: 1. Heme-positive anemia: EGD canceled 03-16-16 due to A. fib. - transfuse PRN hgb < 8 - if necessary for EGD and PEG placement, cardiology rate the endoscopic procedure as an intermediate risk 2. Tachycardia with atrial fibrillation. - cardiac stabilization 3. Constipation: resolving 4. Acute Respiratory failure, secondary to bronchitis/URI/pneumonia. Reported history of asthma. Immunosuppressed with CellCept chronically - management per primary and other consultants 5. CKD: Now roughly back to baseline. 6. Poor nutrition/protein calorie malnutrition - continue TPN - awaiting swallow eval - Consider PEG per Dr. Zuniga if pt do not pass swallow eval. 7. Dr. Zuniga to resume care of this patient tomorrow and determine timing of EGD with PEG placement. Problems: Consultation Date/Type/Reason Admit Date/Time Feb 29, 2016 at 18:54 Initial Consult Date 03/17/16 Type of Consultation: GI Referring Provider: KANCHAN LEONARD MD 24 HR Interval Summary Free Text/Dictation opens eyes, moans, family not at bedside this AM so I cannot update today. Exam/Review of Systems Vital Signs Vitals Vital Signs Date Time Temp Pulse Resp B/P Pulse Ox O2 Delivery O2 Flow Rate FiO2 03/19/16 07:15 123 27 98 03/19/16 07:00 169/51 03/19/16 06:00 Nasal Cannula 03/19/16 04:00 98.7 03/19/16 01:31 1.0 03/18/16 01:36 22 Intake and Output 03/18/16 03/18/16 03/19/16 14:59 22:59 06:59 Output Total 1500 ml 1080 ml 500 ml Balance -1500 ml -1080 ml -500 ml Exam Psych: confusion Head: atraumatic, normocephalic Eyes: nl conjunctiva, nl lids, nl sclera ENMT: mucosa pink and moist, nl external ears & nose, nl lips & teeth, nl nasal mucosa & septum Neck: non-tender, supple Respiratory: clear to auscultation, normal air movement Cardiovascular: nl pulses, regular rate and rhythm Gastrointestinal: bowel sounds, non-tender, soft Results Result Diagram: 03/18/16 0410 03/18/16 0410 Results 24 hrs Laboratory Tests Test 03/18/16 12:12 03/18/16 17:06 03/18/16 21:24 03/19/16 00:37 Bedside Glucose 207 223 H 231 H 234 H Test 03/19/16 05:55 Bedside Glucose 191 Medications Medications Current Medications Brimonidine Tartrate (Alphagan 0.2%) 1 drop Q8 BOTH EYES Last administered on 05:45; Admin Dose 1 DROP; Start 03/01/16 at 06:00 Latanoprost (Xalatan) 1 drop QHS BOTH EYES Last administered on 03/18/16 21:09 ; Admin Dose 1 DROP; Start 03/01/16 at 21:00 Mycophenolate Mofetil (Cellcept) 500 mg BID PO Last administered on 03/14/16 08:44; Admin Dose 500 MG; Start 03/01/16 at 09:00 Acetaminophen (Tylenol Tab) 650 mg Q4H PRN PO pain/fever Last administered on 03/08/16at 12:49; Admin Dose 650 MG; Start 03/01/16 at 01:00 Ondansetron HCl (Zofran Inj) 4 mg Q4H PRN IV nausea Last administered on at 02:23; Admin Dose 4 MG; Start 03/01/16 at 01:00 Morphine Sulfate (morphine) 2 mg Q2H PRN IV pain Last administered on 03/19/16 01:55; Admin Dose 2 MG; Start 03/01/16 at 01:00 Miscellaneous Information 1 ea NOTE XX ; Start 03/01/16 at 02:00 Glucose (Glutose) 15 gm Q15M PRN PO DECREASED GLUCOSE; Start 03/01/16 at 02:00 Glucose (Glutose) 22.5 gm Q15M PRN PO DECREASED GLUCOSE; Start 03/01/16 at 02: 00 Dextrose (D50w Syringe) 25 ml Q15M PRN IV DECREASED GLUCOSE Last administered on 03/13/16at 13:36; Admin Dose 25 ML; Start 03/01/16 at 02:00 Dextrose (D50w Syringe) 50 ml Q15M PRN IV DECREASED GLUCOSE Last administered on 03/13/16at 12:30; Admin Dose 50 ML; Start 03/01/16 at 02:00 Glucagon (Glucagen) 1 mg Q15M PRN IM DECREASED GLUCOSE; Start 03/01/16 at 02: 00 Glucose (Glutose) 15 gm Q15M PRN BUCCAL DECREASED GLUCOSE; Start 03/01/16 at 02:00 Diagnostic Test (Pha) (Accucheck) 1 ea 02 XX Last administered on 03/18/16 02: 00; Admin Dose 1 EA; Start 03/02/16 at 02:00 Bisacodyl (Dulcolax Supp) 10 mg DAILY PRN [place] CONSTIPATION Last administered on 03/08/16 23:47; Admin Dose 10 MG; Start 03/03/16 at 11:30 Clotrimazole (Lotrimin Cr) 1 applic BID TOP Last administered on 03/18/16 21:09 ; Admin Dose 1 APPLIC; Start 03/03/16 at 13:30 Docusate Sodium (Colace) 100 mg BID PO Last administered on 03/14/16 08:45; Admin Dose 100 MG; Start 03/05/16 at 10:30 Sodium Chloride (Deep Sea) 1 spray Q4H PRN NASAL NASAL CONGESTION; Start 03/07 at 17:30 Ondansetron HCl (Zofran Inj) 4 mg Q4H PRN IV NAUSEA AND/OR VOMITING; Start at 23:30 Pantoprazole (Protonix Iv) 40 mg BID@06,18 IV Last administered on 03/19/16 05: 45; Admin Dose 40 MG; Start 03/10/16 at 06:00 Fentanyl (Duragesic 75 Mcg/Hr Patch) 1 patch Q72H TRANSDERM Last administered on 03/17/16at 10:18; Admin Dose 1 PATCH; Start 03/11/16 at 09:00 Gabapentin (Neurontin) 300 mg Q8 GTB Last administered on 03/14/16 14:46; Admin Dose 300 MG; Start 03/13/16 at 06:00 Methylprednisolone Sodium Succinate (Solu-Medrol) 30 mg DAILY IV Last administered on 03/18/16 09:46; Admin Dose 30 MG; Start 03/13/16 at 09:30 Lactulose 20 gm 20 gm Q6 PO Last administered on 03/14/16at 12:19; Admin Dose 20 GM; Start 03/13/16 at 18:00 Meropenem/Sodium Chloride (Merrem/NS) 100 ml @ 200 mls/hr Q12 IVPB Last administered on 03/18/16 21:15; Admin Dose 200 MLS/HR; Start 03/13/16 at 17:00 Hydralazine HCl (Apresoline) 10 mg Q6H PRN IV SBP>160 Last administered on 00:48; Admin Dose 10 MG; Start 03/14/16 at 22:00 Clonidine HCl (Catapres-Tts 2 Patch) 1 patch Q7D TRANSDERM Last administered on 03/14/16at 22:00; Admin Dose 1 PATCH; Start 03/14/16 at 22:00 Diltiazem HCl (Cardizem Iv) 10 mg Q4 IV Last administered on 03/19/16 05:45; Admin Dose 10 MG; Start 03/15/16 at 01:00 Lubiprostone 24 mcg 24 mcg BID PO ; Start 03/15/16 at 16:00 Diltiazem HCl (Cardizem-D5W 125 Mg/125 ml Drip) 125 ml @ 5 mls/hr TITRATE IV Last administered on 03/17/16at 02:43; Admin Dose 15 MLS/HR; Start 03/16/16 at 10:30 Lorazepam 0.5 mg 0.5 mg Q8H PRN IV ANXIETY Last administered on 03/18/16 18:59 ; Admin Dose 0.5 MG; Start 03/16/16 at 23:00 Total Parenteral Nutrition 1,000 ml @ 40 mls/hr Q24H IV Last administered on 16:01; Admin Dose 40 MLS/HR; Start 03/17/16 at 16:00 Fat Emulsion Intravenous (Liposyn Ii 20%) 250 ml @ 10.4 mls/hr Q24H IV Last administered on 03/18/16 16:01; Admin Dose 10.4 MLS/HR; Start 03/17/16 at 16:00 Insulin Glargine (Lantus) 50 unit QHS SC Last administered on 03/18/16 21:34; Admin Dose 50 UNIT; Start 03/18/16 at 21:00 Insulin Aspart (Adult SC Insulin - Moder... Q6 SC Last administered on 06:03; Admin Dose 4 UNIT; Start 03/18/16 at 06:30 Dextrose (D5W) 1,000 ml @ 60 mls/hr [id number] IV Last administered on 03/18/16 17:12; Admin Dose 60 MLS/HR; Start 03/18/16 at 16:30 DEONTE DUARTE MD Mar 19, 2016 07:51
[2016-03-19] MEDS: DEXTROSE 5% 1,000 ML IV SCH (08:31)
[2016-03-19] MEDS: METHYLPREDNISOLONE 40 MG INJ IV SCH (08:43)
[2016-03-19] MEDS: MEROPENEM 500 MG in SOD CHLORIDE 0.9% 100 ML IVPB SCH ×2 (08:44→21:46)
[2016-03-19] MEDS: CLOTRIMAZOLE 1% 30 GM CR TOP SCH ×2 (08:45→21:47)
[2016-03-19] MEDS: LUBIPROSTONE 24 MCG CAP PO SCH ×2 (08:45→21:00)
[2016-03-19] MEDS: MYCOPHENOLATE 250 MG CAP PO SCH ×2 (08:46→21:00)
[2016-03-19] MEDS: DOCUSATE SODIUM 100 MG CAP PO SCH ×2 (08:46→21:00)
[2016-03-19 09:26] LABS: BASOPHIL # 0.3 10^3/ul (0.0-0.1); BASOPHILS % 1.9 % (0.0-2.0); HEMATOCRIT 32.3 % (37.0-47.0); HEMOGLOBIN 10.8 g/dl (12.0-16.0); LYMPHOCYTES # 0.8 10^3/ul (0.8-2.9); LYMPHOCYTES % 4.8 % (15.0-51.0); MEAN CORPUSCULAR HGB CONC 33.3 g/dl (32.0-37.0); MEAN PLATELET VOLUME 8.8 fl (7.4-10.4); MONOCYTE # 0.6 10^3/ul (0.3-0.9); MONOCYTES % 3.5 % (0.0-11.0); NEUTROPHIL # 14.4 10^3/ul (1.6-7.5); NEUTROPHILS % 89.8 % (39.0-77.0); PLATELET COUNT 141 10^3/UL (140-440); RED BLOOD COUNT 3.85 10^6/ul (4.20-5.40); RED CELL DISTRIBUTION WIDTH 16.2 % (11.5-14.5); UNCORRECTED WBC 16.1 10^3/ul (4.8-10.8); WHITE BLOOD COUNT 16.1 10^3/ul (4.8-10.8)
[2016-03-19 09:29] LABS: CONDITION 1; LH ANALYZER COMMENTS 1; SUSPECT 1
[2016-03-19 09:37] LABS: POTASSIUM 4.5 mmol/L (3.5-5.1)
[2016-03-19 09:39] LABS: CREATININE 1.02 mg/dl (0.44-1.00)
[2016-03-19 09:40] LABS: CALCIUM 8.2 mg/dl (8.4-10.2); MAGNESIUM 2.1 mg/dl (1.7-2.5)
--- NOTE | 2016-03-19 11:02 | CONS ---
Date/Time of Note Date/Time of Note DATE: 03/19/16 TIME: 11:00 Consult Date/Type/Reason Admit Date/Time Feb 29, 2016 at 18:54 Type of Consultation: pulmonary Ordering Provider: KANCHAN LEONARD MD Subjective Patient remains confused Less respiratory distress Currently hemodynamically stable Continues TPN Objective Vital Signs Date Time Temp Pulse Resp B/P Pulse Ox O2 Delivery O2 Flow Rate FiO2 03/19/16 09:30 116 24 131/60 99 Nasal Cannula 03/19/16 08:16 1.0 03/19/16 08:00 97.5 03/18/16 01:36 22 Intake and Output 03/18/16 03/18/16 03/19/16 14:59 22:59 06:59 Output Total 1500 ml 1080 ml 1100 ml Balance -1500 ml -1080 ml -1100 ml GENERAL: Frail elderly lady with few audible rales in the upper airway VITAL SIGNS: per chart NECK: Supple. No JVD or lymphadenopathy. CARDIAC EXAM: S1, S2. No added sounds or murmurs. CHEST: Diminished air entry bilaterally with rales ABDOMEN: Soft, nontender. No guarding or rebound. EXTREMITIES: No cyanosis, clubbing edema +1 NEUROLOGIC: Generalized weakness, not following commands Results/Medications Result Diagram: 03/19/16 0819 03/19/16 0819 Results 24 hrs Laboratory Tests Test 03/18/16 12:12 03/18/16 17:06 03/18/16 21:24 03/19/16 00:37 Bedside Glucose 207 223 H 231 H 234 H Test 03/19/16 05:55 03/19/16 08:19 Bedside Glucose 191 Anion Gap 13 Basophils # 0.3 H Basophils % 1.9 Blood Morphology Comment Blood Urea Nitrogen 48 H Calcium Level 8.2 L Carbon Dioxide Level 31 Chloride Level 106 Creatinine 1.02 H Eosinophils # 0.0 Eosinophils % 0.0 Glucose Level 290 H Hematocrit 32.3 L Hemoglobin 10.8 L Lymphocytes # 0.8 Lymphocytes % 4.8 L Magnesium Level 2.1 Mean Corpuscular Hemoglobin 28.0 L Mean Corpuscular Hemoglobin Concent 33.3 Mean Corpuscular Volume 84.0 Mean Platelet Volume 8.8 Monocytes # 0.6 Monocytes % 3.5 Neutrophils # 14.4 H Neutrophils % 89.8 H Nucleated Red Blood Cells # 0.0 Nucleated Red Blood Cells % 0.0 Platelet Count 141 # Potassium Level 4.5 Red Blood Count 3.85 L Red Cell Distribution Width 16.2 H Sodium Level 145 H White Blood Count 16.1 H Medications Current Medications Brimonidine Tartrate (Alphagan 0.2%) 1 drop Q8 BOTH EYES Last administered on 05:45; Admin Dose 1 DROP; Start 03/01/16 at 06:00 Latanoprost (Xalatan) 1 drop QHS BOTH EYES Last administered on 03/18/16 21:09 ; Admin Dose 1 DROP; Start 03/01/16 at 21:00 Mycophenolate Mofetil (Cellcept) 500 mg BID PO Last administered on 03/14/16at 08:44; Admin Dose 500 MG; Start 03/01/16 at 09:00 Acetaminophen (Tylenol Tab) 650 mg Q4H PRN PO pain/fever Last administered on 03/08/16at 12:49; Admin Dose 650 MG; Start 03/01/16 at 01:00 Ondansetron HCl (Zofran Inj) 4 mg Q4H PRN IV nausea Last administered on at 02:23; Admin Dose 4 MG; Start 03/01/16 at 01:00 Morphine Sulfate (morphine) 2 mg Q2H PRN IV pain Last administered on 03/19/16 01:55; Admin Dose 2 MG; Start 03/01/16 at 01:00 Miscellaneous Information 1 ea NOTE XX ; Start 03/01/16 at 02:00 Glucose (Glutose) 15 gm Q15M PRN PO DECREASED GLUCOSE; Start 03/01/16 at 02:00 Glucose (Glutose) 22.5 gm Q15M PRN PO DECREASED GLUCOSE; Start 03/01/16 at 02: 00 Dextrose (D50w Syringe) 25 ml Q15M PRN IV DECREASED GLUCOSE Last administered on 03/13/16at 13:36; Admin Dose 25 ML; Start 03/01/16 at 02:00 Dextrose (D50w Syringe) 50 ml Q15M PRN IV DECREASED GLUCOSE Last administered on 03/13/16at 12:30; Admin Dose 50 ML; Start 03/01/16 at 02:00 Glucagon (Glucagen) 1 mg Q15M PRN IM DECREASED GLUCOSE; Start 03/01/16 at 02: 00 Glucose (Glutose) 15 gm Q15M PRN BUCCAL DECREASED GLUCOSE; Start 03/01/16 at 02:00 Diagnostic Test (Pha) (Accucheck) 1 ea 02 XX Last administered on 03/18/16 02: 00; Admin Dose 1 EA; Start 03/02/16 at 02:00 Bisacodyl (Dulcolax Supp) 10 mg DAILY PRN [place] CONSTIPATION Last administered on 03/08/16 23:47; Admin Dose 10 MG; Start 03/03/16 at 11:30 Clotrimazole (Lotrimin Cr) 1 applic BID TOP Last administered on 03/19/16 08:45 ; Admin Dose 1 APPLIC; Start 03/03/16 at 13:30 Docusate Sodium (Colace) 100 mg BID PO Last administered on 03/14/16 08:45; Admin Dose 100 MG; Start 03/05/16 at 10:30 Sodium Chloride (Deep Sea) 1 spray Q4H PRN NASAL NASAL CONGESTION; Start 03/07 at 17:30 Ondansetron HCl (Zofran Inj) 4 mg Q4H PRN IV NAUSEA AND/OR VOMITING; Start at 23:30 Pantoprazole (Protonix Iv) 40 mg BID@06,18 IV Last administered on 03/19/16 05: 45; Admin Dose 40 MG; Start 03/10/16 at 06:00 Fentanyl (Duragesic 75 Mcg/Hr Patch) 1 patch Q72H TRANSDERM Last administered on 03/17/16at 10:18; Admin Dose 1 PATCH; Start 03/11/16 at 09:00 Gabapentin (Neurontin) 300 mg Q8 GTB Last administered on 03/14/16at 14:46; Admin Dose 300 MG; Start 03/13/16 at 06:00 Methylprednisolone Sodium Succinate (Solu-Medrol) 30 mg DAILY IV Last administered on 03/19/16 08:43; Admin Dose 30 MG; Start 03/13/16 at 09:30 Lactulose 20 gm 20 gm Q6 PO Last administered on 03/14/16at 12:19; Admin Dose 20 GM; Start 03/13/16 at 18:00 Meropenem/Sodium Chloride (Merrem/NS) 100 ml @ 200 mls/hr Q12 IVPB Last administered on 03/19/16 08:44; Admin Dose 200 MLS/HR; Start 03/13/16 at 17:00 Hydralazine HCl (Apresoline) 10 mg Q6H PRN IV SBP>160 Last administered on 00:48; Admin Dose 10 MG; Start 03/14/16 at 22:00 Clonidine HCl (Catapres-Tts 2 Patch) 1 patch Q7D TRANSDERM Last administered on 03/14/16at 22:00; Admin Dose 1 PATCH; Start 03/14/16 at 22:00 Diltiazem HCl (Cardizem Iv) 10 mg Q4 IV Last administered on 03/19/16 08:44; Admin Dose 10 MG; Start 03/15/16 at 01:00 Lubiprostone 24 mcg 24 mcg BID PO ; Start 03/15/16 at 16:00 Diltiazem HCl (Cardizem-D5W 125 Mg/125 ml Drip) 125 ml @ 5 mls/hr TITRATE IV Last administered on 03/17/16at 02:43; Admin Dose 15 MLS/HR; Start 03/16/16 at 10:30 Lorazepam 0.5 mg 0.5 mg Q8H PRN IV ANXIETY Last administered on 03/18/16 18:59 ; Admin Dose 0.5 MG; Start 03/16/16 at 23:00 Total Parenteral Nutrition 1,000 ml @ 40 mls/hr Q24H IV Last administered on 16:01; Admin Dose 40 MLS/HR; Start 03/17/16 at 16:00 Fat Emulsion Intravenous (Liposyn Ii 20%) 250 ml @ 10.4 mls/hr Q24H IV Last administered on 03/18/16 16:01; Admin Dose 10.4 MLS/HR; Start 03/17/16 at 16:00 Insulin Glargine (Lantus) 50 unit QHS SC Last administered on 03/18/16 21:34; Admin Dose 50 UNIT; Start 03/18/16 at 21:00 Insulin Aspart (Adult SC Insulin - Moder... Q6 SC Last administered on 06:03; Admin Dose 4 UNIT; Start 03/18/16 at 06:30 Dextrose (D5W) 1,000 ml @ 60 mls/hr [id number] IV Last administered on 03/19/16t 08:31; Admin Dose 60 MLS/HR; Start 03/18/16 at 16:30 Assessment/Plan Chief Complaint/Hosp Course IMPRESSION: An 85-year-old female with: 1. Acute hypoxemic respiratory failure. Significant aspiration component significant neuromuscular weakness. 2. Chronic obstructive pulmonary disease exacerbation. 3. Bronchitis. As above persistent leukocytosis 4. Hypernatremia. 5. History of diabetes. Poor Glycemic control exacerbated by steroids 6. History of hypertension. 7. Atrial fibrillation with rapid ventricular rate 8. Coronary artery disease. 9. Anemia likely possibly dilutional questionable GI loss 10. Encephalopathy possibly toxic metabolic 11. 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 Deep suctioning. Aggressive pulmonary toilet. Keep nothing by mouth 2. Supplemental oxygen 3. Antibiotics. We will add vancomycin secondary to worsening WBC 4. Bronchodilators. 5. Noninvasive positive pressure ventilation if needed. 6. Speech therapy recommendations continue aspiration precautions 7. Rate control per cardiology 8. GI evaluation for anemia 9. Correction of hyponatremia and hypokalemia 10. TPN 11. CT head and chest Prognosis guarded. Long discussion with patient's son at bedside Problems: SHIVA PERES MD, [facility] Mar 19, 2016 11:02
--- NOTE | 2016-03-19 11:05 | PN ---
Date/Time of Note Date/Time of Note DATE: 03/19/16 TIME: 10:58 Assessment/Plan VTE Prophylaxis VTE Prophylaxis Intervention: SCD's Lines/Catheters IV Catheter Type (from Nrsg): PICC Line Central line still needed: Yes Urinary Cath still in place: Yes Reason Cath still needed: pres ulcer contaminated by urine Assessment/Plan Assessment/Plan 1. Hospital day 19 for this 85 yo woman with continued upper respiratory congestion. Overall, slightly improved, but still with congestion and slightly more somulent this AM. Mild pulmonary vascular congestion, despite lasix Saturday night. Appears euvolemic, but she is hypernatremic. Echo showed normal LV function, but with elevated pulmonary artery pressures. WBC basically unchanged. Patient is immunosuppressed on Mycophenolate. * Continue meropenem per ID * Continued on oxygen * Regular suctioning * CT scan of brain and chest * add vancomycin * DVT prophylaxis with SCDs (concern for GI bleeding precludes anticoagulation) *Swallow evaluation: she failed, but she is confused at times, which may have affected results. 2. Heme-positive: Constipation improved overall, likely secondary to her hyperglycemia and Fentanyl patch use. KUB showed colon full of fecal matter, and CT abd/pelvis showed no evidence of abdominopelvic mass, lymphadenopathy or focal acute inflammatory pathology. * PEG placement pending resolution of the tachycardia issue, according to Dr. Zuniga, possibly this week. GI consult by Dr. Vasquez was a few days ago, * Monitor CBC * Patient remains NPO; very thirsty, but unsafe to feed for high risk of aspiration. 3. Tachycardia with atrial fibrillation. Does not appear pre-renal. * Dr. Padgett to see patient today. * Hold Eliquis given question of GI bleeding 4. Acute Respiratory failure, secondary to bronchitis/URI/pneumonia. Reported history of asthma. Immunosuppressed with CellCept chronically * Continue nebulizers * Solu-medrol currently tapered to 30 mg daily * Check CT scan of the chest 5. CKD: Was at baseline of 1.35 on admission, slowly improving; renal on the case. 6. Anemia, acute * hgb appears stable 6. Diabetes. Blood sugars are higher today as TPN was started. I spoke to the pharmacist to reduce the dextrose and increase the free water. * Continue daily Lantus insulin and adjust as necessary. * Continue Accu-Checks and sliding scale. 7. Hypertension. Management of Clonidine, Norvasc, and Cardizem as noted above. May need titration. 8. 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 9. Chronic Pain, on fentanyl patch. Generally chronic low back pain benefits from more conservative measures, including PT, acupuncture, non-narcotic analgesics. * down to 75 mcg topically. 10 Nutrition: * NPO now * may need PEG if not passing re-evaluation of swallow study. TPN started . 11. Prophylaxis: Holding Eliquis (given for atrial fibrillation) due to current concerns about GI bleeding. SCDs in place instead. Protonix for GI prophylaxis 12. Disposition: Case d/w son and daughter (both physicians) at the bedside and questions answered to their satisfaction. Son (Harshad Sarabia MD [phone]) Subjective 24 Hr Interval Summary Free Text/Dictation Slightly more somulent this AM. Breathing is also slightly more labored. Exam/Review of Systems Vital Signs Vitals Vital Signs Date Time Temp Pulse Resp B/P Pulse Ox O2 Delivery O2 Flow Rate FiO2 03/19/16 09:30 116 24 131/60 99 Nasal Cannula 03/19/16 08:16 1.0 03/19/16 08:00 97.5 03/18/16 01:36 22 Intake and Output 03/18/16 03/18/16 03/19/16 14:59 22:59 06:59 Output Total 1500 ml 1080 ml 1100 ml Balance -1500 ml -1080 ml -1100 ml Exam Head: normocephalic ENMT: nl external ears & nose Neck: supple Respiratory: crackles/rales, labored breathing Cardiovascular: other (tachycardic) Gastrointestinal: soft Extremities: normal pulses Results Result Diagram: 03/19/16 0803/19/16818 Results 24 hrs Laboratory Tests Test 03/18/16 12:12 03/18/16 17:06 03/18/16 21:24 03/19/16 00:37 Bedside Glucose 207 223 H 231 H 234 H Test 03/19/16 05:55 03/19/16 08:19 Bedside Glucose 191 Anion Gap 13 Basophils # 0.3 H Basophils % 1.9 Blood Morphology Comment Blood Urea Nitrogen 48 H Calcium Level 8.2 L Carbon Dioxide Level 31 Chloride Level 106 Creatinine 1.02 H Eosinophils # 0.0 Eosinophils % 0.0 Glucose Level 290 H Hematocrit 32.3 L Hemoglobin 10.8 L Lymphocytes # 0.8 Lymphocytes % 4.8 L Magnesium Level 2.1 Mean Corpuscular Hemoglobin 28.0 L Mean Corpuscular Hemoglobin Concent 33.3 Mean Corpuscular Volume 84.0 Mean Platelet Volume 8.8 Monocytes # 0.6 Monocytes % 3.5 Neutrophils # 14.4 H Neutrophils % 89.8 H Nucleated Red Blood Cells # 0.0 Nucleated Red Blood Cells % 0.0 Platelet Count 141 # Potassium Level 4.5 Red Blood Count 3.85 L Red Cell Distribution Width 16.2 H Sodium Level 145 H White Blood Count 16.1 H Medications Medications Current Medications Brimonidine Tartrate (Alphagan 0.2%) 1 drop Q8 BOTH EYES Last administered on 05:45; Admin Dose 1 DROP; Start 03/01/16 at 06:00 Latanoprost (Xalatan) 1 drop QHS BOTH EYES Last administered on 03/18/16 21:09 ; Admin Dose 1 DROP; Start 03/01/16 at 21:00 Mycophenolate Mofetil (Cellcept) 500 mg BID PO Last administered on 03/14/16at 08:44; Admin Dose 500 MG; Start 03/01/16 at 09:00 Acetaminophen (Tylenol Tab) 650 mg Q4H PRN PO pain/fever Last administered on 03/08/16at 12:49; Admin Dose 650 MG; Start 03/01/16 at 01:00 Ondansetron HCl (Zofran Inj) 4 mg Q4H PRN IV nausea Last administered on at 02:23; Admin Dose 4 MG; Start 03/01/16 at 01:00 Morphine Sulfate (morphine) 2 mg Q2H PRN IV pain Last administered on 03/19/16 01:55; Admin Dose 2 MG; Start 03/01/16 at 01:00 Miscellaneous Information 1 ea NOTE XX ; Start 03/01/16 at 02:00 Glucose (Glutose) 15 gm Q15M PRN PO DECREASED GLUCOSE; Start 03/01/16 at 02:00 Glucose (Glutose) 22.5 gm Q15M PRN PO DECREASED GLUCOSE; Start 03/01/16 at 02: 00 Dextrose (D50w Syringe) 25 ml Q15M PRN IV DECREASED GLUCOSE Last administered on 03/13/16at 13:36; Admin Dose 25 ML; Start 03/01/16 at 02:00 Dextrose (D50w Syringe) 50 ml Q15M PRN IV DECREASED GLUCOSE Last administered on 03/13/16at 12:30; Admin Dose 50 ML; Start 03/01/16 at 02:00 Glucagon (Glucagen) 1 mg Q15M PRN IM DECREASED GLUCOSE; Start 03/01/16 at 02: 00 Glucose (Glutose) 15 gm Q15M PRN BUCCAL DECREASED GLUCOSE; Start 03/01/16 at 02:00 Diagnostic Test (Pha) (Accucheck) 1 ea 02 XX Last administered on 03/18/16 02: 00; Admin Dose 1 EA; Start 03/02/16 at 02:00 Bisacodyl (Dulcolax Supp) 10 mg DAILY PRN [place] CONSTIPATION Last administered on 03/08/16at 23:47; Admin Dose 10 MG; Start 03/03/16 at 11:30 Clotrimazole (Lotrimin Cr) 1 applic BID TOP Last administered on 03/19/16 08:45 ; Admin Dose 1 APPLIC; Start 03/03/16 at 13:30 Docusate Sodium (Colace) 100 mg BID PO Last administered on 03/14/16 08:45; Admin Dose 100 MG; Start 03/05/16 at 10:30 Sodium Chloride (Deep Sea) 1 spray Q4H PRN NASAL NASAL CONGESTION; Start 03/07 at 17:30 Ondansetron HCl (Zofran Inj) 4 mg Q4H PRN IV NAUSEA AND/OR VOMITING; Start at 23:30 Pantoprazole (Protonix Iv) 40 mg BID@06,18 IV Last administered on 03/19/16 05: 45; Admin Dose 40 MG; Start 03/10/16 at 06:00 Fentanyl (Duragesic 75 Mcg/Hr Patch) 1 patch Q72H TRANSDERM Last administered on 03/17/16at 10:18; Admin Dose 1 PATCH; Start 03/11/16 at 09:00 Gabapentin (Neurontin) 300 mg Q8 GTB Last administered on 03/14/16at 14:46; Admin Dose 300 MG; Start 03/13/16 at 06:00 Methylprednisolone Sodium Succinate (Solu-Medrol) 30 mg DAILY IV Last administered on 03/19/16 08:43; Admin Dose 30 MG; Start 03/13/16 at 09:30 Lactulose 20 gm 20 gm Q6 PO Last administered on 03/14/16at 12:19; Admin Dose 20 GM; Start 03/13/16 at 18:00 Meropenem/Sodium Chloride (Merrem/NS) 100 ml @ 200 mls/hr Q12 IVPB Last administered on 03/19/16 08:44; Admin Dose 200 MLS/HR; Start 03/13/16 at 17:00 Hydralazine HCl (Apresoline) 10 mg Q6H PRN IV SBP>160 Last administered on 00:48; Admin Dose 10 MG; Start 03/14/16 at 22:00 Clonidine HCl (Catapres-Tts 2 Patch) 1 patch Q7D TRANSDERM Last administered on 03/14/16at 22:00; Admin Dose 1 PATCH; Start 03/14/16 at 22:00 Diltiazem HCl (Cardizem Iv) 10 mg Q4 IV Last administered on 03/19/16 08:44; Admin Dose 10 MG; Start 03/15/16 at 01:00 Lubiprostone 24 mcg 24 mcg BID PO ; Start 03/15/16 at 16:00 Diltiazem HCl (Cardizem-D5W 125 Mg/125 ml Drip) 125 ml @ 5 mls/hr TITRATE IV Last administered on 03/17/16at 02:43; Admin Dose 15 MLS/HR; Start 03/16/16 at 10:30 Lorazepam 0.5 mg 0.5 mg Q8H PRN IV ANXIETY Last administered on 03/18/16 18:59 ; Admin Dose 0.5 MG; Start 03/16/16 at 23:00 Total Parenteral Nutrition 1,000 ml @ 40 mls/hr Q24H IV Last administered on 16:01; Admin Dose 40 MLS/HR; Start 03/17/16 at 16:00 Fat Emulsion Intravenous (Liposyn Ii 20%) 250 ml @ 10.4 mls/hr Q24H IV Last administered on 03/18/16 16:01; Admin Dose 10.4 MLS/HR; Start 03/17/16 at 16:00 Insulin Glargine (Lantus) 50 unit QHS SC Last administered on 03/18/16 21:34; Admin Dose 50 UNIT; Start 03/18/16 at 21:00 Insulin Aspart (Adult SC Insulin - Moder... Q6 SC Last administered on 06:03; Admin Dose 4 UNIT; Start 03/18/16 at 06:30 Dextrose (D5W) 1,000 ml @ 60 mls/hr [id number] IV Last administered on 03/19/16 08:31; Admin Dose 60 MLS/HR; Start 03/18/16 at 16:30 KANCHAN LEONARD MD Mar 19, 2016 11:05
[2016-03-19] MEDS ORDERED: VANCOMYCIN IV PER PHARMACY XX SCH (11:30)
--- NOTE | 2016-03-19 11:55 | CONS ---
Date/Time of Note Date/Time of Note DATE: 03/19/16 TIME: 11:50 Assessment/Plan Assessment/Plan Chief Complaint/Hosp Course ID PROGRESS NOTE CURRENT ABX: Merrem #6 s/p Levaquin 24H INTERVAL SUMMARY 85 yo obese F, Confused, Afib w/RVR on Cardizem GTT, GIB-> melena stools and coffee-ground emesis s/p PRBCs FRI, supplemental O2 * Remains on Merrem for laryngeal congestion, unable to clear secretions, ASP Pneumonitis, EGD delayed due to Rapid Afib * CXR: Improved, prior CXR showed LLL infiltrate * On TPN PHYSICAL EXAMINATION: GENERAL: 85 yo F -> non-communicative HEENT: Unremarkable NECK: Supple, trachea midline. CHEST: Rise symmetrical, course BS + rales ABDOMEN: Soft, EXTREMITIES: Warm ID ASSESSMENT: 85 yo Obese F admit with: 1. Acute respiratory failure = MULTI-FACTORIAL: Symptomatic anemia + COPD exacerbation + pulmonary edema in setting of Afib w/RVR w/elevated BNP + ASP PNA 2. Aspiration HCAP: * (+)Laryngeal congestion => concern silent aspiration due to significant neuromuscular weakness and inability to clear secretions. * RESPIRATORY CULTURE Final Organism 1 ESCHERICHIA COLI QUANTITY 2+ Organism 2 NO NORMAL RESPIRATORY YANCI QUANTITY . 2. Gram-negative rods urinary tract infection = ESCHERICHIA COLI 3. Acute renal failure. 4. Paroxysmal atrial fibrillation w/RVR = contributing to pulmonary edema 5. Diabetes. 6. Symptomatic anemia = GIB, GI on case pending EGD 7. 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 8. SIRS w/Leukocytosis = partial IV steroids demargination 9. Dysphagia in setting AMS = swallow evaluation pending 10. Osteopenia/Osteoporosis-> severe L3 compression fracture with evidence of vertebroplasty. (+)IMMUNOCOMPROMISED HOST: Patient is immunosuppressed on Mycophenolate. (-)MRSA Nares; (-)Influenza A/B Screen CURRENT ABX: Merrem #6 s/p Levaquin x 14 days s/p Bactrim ID PLAN: Pending GI EGD/colo evaluation Pending swallow eval -> Consider PEG Continue Merrem ->if improves post GI Procedures Aspiration precautions . Problems: Consultation Date/Type/Reason Admit Date/Time Feb 29, 2016 at 18:54 Initial Consult Date 03/17/16 Type of Consultation: ID Referring Provider: KANCHAN LEONARD MD Exam/Review of Systems Vital Signs Vitals Vital Signs Date Time Temp Pulse Resp B/P Pulse Ox O2 Delivery O2 Flow Rate FiO2 03/19/16 09:30 116 24 131/60 99 Nasal Cannula 03/19/16 08:16 1.0 03/19/16 08:00 97.5 03/18/16 01:36 22 Intake and Output 03/18/16 03/18/16 03/19/16 15:00 23:00 07:00 Output Total 1700 ml 980 ml 1000 ml Balance -1700 ml -980 ml -1000 ml Results Result Diagram: 03/19/16 0819 03/19/16 0819 Results 24 hrs Laboratory Tests Test 03/18/16 12:12 03/18/16 17:06 03/18/16 21:24 03/19/16 00:37 Bedside Glucose 207 223 H 231 H 234 H Test 03/19/16 05:55 03/19/16 08:19 Bedside Glucose 191 Anion Gap 13 Basophils # 0.3 H Basophils % 1.9 Blood Morphology Comment Blood Urea Nitrogen 48 H Calcium Level 8.2 L Carbon Dioxide Level 31 Chloride Level 106 Creatinine 1.02 H Eosinophils # 0.0 Eosinophils % 0.0 Glucose Level 290 H Hematocrit 32.3 L Hemoglobin 10.8 L Lymphocytes # 0.8 Lymphocytes % 4.8 L Magnesium Level 2.1 Mean Corpuscular Hemoglobin 28.0 L Mean Corpuscular Hemoglobin Concent 33.3 Mean Corpuscular Volume 84.0 Mean Platelet Volume 8.8 Monocytes # 0.6 Monocytes % 3.5 Neutrophils # 14.4 H Neutrophils % 89.8 H Nucleated Red Blood Cells # 0.0 Nucleated Red Blood Cells % 0.0 Platelet Count 141 # Potassium Level 4.5 Red Blood Count 3.85 L Red Cell Distribution Width 16.2 H Sodium Level 145 H White Blood Count 16.1 H Medications Medications Current Medications Brimonidine Tartrate (Alphagan 0.2%) 1 drop Q8 BOTH EYES Last administered on 05:45; Admin Dose 1 DROP; Start 03/01/16 at 06:00 Latanoprost (Xalatan) 1 drop QHS BOTH EYES Last administered on 03/18/16 21:09 ; Admin Dose 1 DROP; Start 03/01/16 at 21:00 Mycophenolate Mofetil (Cellcept) 500 mg BID PO Last administered on 03/14/16 08:44; Admin Dose 500 MG; Start 03/01/16 at 09:00 Acetaminophen (Tylenol Tab) 650 mg Q4H PRN PO pain/fever Last administered on 03/08/16 12:49; Admin Dose 650 MG; Start 03/01/16 at 01:00 Ondansetron HCl (Zofran Inj) 4 mg Q4H PRN IV nausea Last administered on 02:23; Admin Dose 4 MG; Start 03/01/16 at 01:00 Morphine Sulfate (morphine) 2 mg Q2H PRN IV pain Last administered on 03/19/16 01:55; Admin Dose 2 MG; Start 03/01/16 at 01:00 Miscellaneous Information 1 ea NOTE XX ; Start 03/01/16 at 02:00 Glucose (Glutose) 15 gm Q15M PRN PO DECREASED GLUCOSE; Start 03/01/16 at 02:00 Glucose (Glutose) 22.5 gm Q15M PRN PO DECREASED GLUCOSE; Start 03/01/16 at 02: 00 Dextrose (D50w Syringe) 25 ml Q15M PRN IV DECREASED GLUCOSE Last administered on 03/13/16 13:36; Admin Dose 25 ML; Start 03/01/16 at 02:00 Dextrose (D50w Syringe) 50 ml Q15M PRN IV DECREASED GLUCOSE Last administered on 03/13/16 12:30; Admin Dose 50 ML; Start 03/01/16 at 02:00 Glucagon (Glucagen) 1 mg Q15M PRN IM DECREASED GLUCOSE; Start 03/01/16 at 02: 00 Glucose (Glutose) 15 gm Q15M PRN BUCCAL DECREASED GLUCOSE; Start 03/01/16 at 02:00 Diagnostic Test (Pha) (Accucheck) 1 ea 02 XX Last administered on 03/18/16 02: 00; Admin Dose 1 EA; Start 03/02/16 at 02:00 Bisacodyl (Dulcolax Supp) 10 mg DAILY PRN [place] CONSTIPATION Last administered on 03/08/16 23:47; Admin Dose 10 MG; Start 03/03/16 at 11:30 Clotrimazole (Lotrimin Cr) 1 applic BID TOP Last administered on 03/19/16 08:45 ; Admin Dose 1 APPLIC; Start 03/03/16 at 13:30 Docusate Sodium (Colace) 100 mg BID PO Last administered on 03/14/16 08:45; Admin Dose 100 MG; Start 03/05/16 at 10:30 Sodium Chloride (Deep Sea) 1 spray Q4H PRN NASAL NASAL CONGESTION; Start 03/07 at 17:30 Ondansetron HCl (Zofran Inj) 4 mg Q4H PRN IV NAUSEA AND/OR VOMITING; Start at 23:30 Pantoprazole (Protonix Iv) 40 mg BID@06,18 IV Last administered on 03/19/16 05: 45; Admin Dose 40 MG; Start 03/10/16 at 06:00 Fentanyl (Duragesic 75 Mcg/Hr Patch) 1 patch Q72H TRANSDERM Last administered on 03/17/16 10:18; Admin Dose 1 PATCH; Start 03/11/16 at 09:00 Gabapentin (Neurontin) 300 mg Q8 GTB Last administered on 03/14/16at 14:46; Admin Dose 300 MG; Start 03/13/16 at 06:00 Methylprednisolone Sodium Succinate (Solu-Medrol) 30 mg DAILY IV Last administered on 03/19/16 08:43; Admin Dose 30 MG; Start 03/13/16 at 09:30 Lactulose 20 gm 20 gm Q6 PO Last administered on 03/14/16at 12:19; Admin Dose 20 GM; Start 03/13/16 at 18:00 Meropenem/Sodium Chloride (Merrem/NS) 100 ml @ 200 mls/hr Q12 IVPB Last administered on 03/19/16 08:44; Admin Dose 200 MLS/HR; Start 03/13/16 at 17:00 Hydralazine HCl (Apresoline) 10 mg Q6H PRN IV SBP>160 Last administered on 00:48; Admin Dose 10 MG; Start 03/14/16 at 22:00 Clonidine HCl (Catapres-Tts 2 Patch) 1 patch Q7D TRANSDERM Last administered on 03/14/16at 22:00; Admin Dose 1 PATCH; Start 03/14/16 at 22:00 Diltiazem HCl (Cardizem Iv) 10 mg Q4 IV Last administered on 03/19/16 08:44; Admin Dose 10 MG; Start 03/15/16 at 01:00 Lubiprostone 24 mcg 24 mcg BID PO ; Start 03/15/16 at 16:00 Diltiazem HCl (Cardizem-D5W 125 Mg/125 ml Drip) 125 ml @ 5 mls/hr TITRATE IV Last administered on 03/17/16at 02:43; Admin Dose 15 MLS/HR; Start 03/16/16 at 10:30 Lorazepam 0.5 mg 0.5 mg Q8H PRN IV ANXIETY Last administered on 03/18/16 18:59 ; Admin Dose 0.5 MG; Start 03/16/16 at 23:00 Total Parenteral Nutrition 1,000 ml @ 40 mls/hr Q24H IV Last administered on 16:01; Admin Dose 40 MLS/HR; Start 03/17/16 at 16:00 Fat Emulsion Intravenous (Liposyn Ii 20%) 250 ml @ 10.4 mls/hr Q24H IV Last administered on 03/18/16 16:01; Admin Dose 10.4 MLS/HR; Start 03/17/16 at 16:00 Insulin Glargine (Lantus) 50 unit QHS SC Last administered on 03/18/16 21:34; Admin Dose 50 UNIT; Start 03/18/16 at 21:00 Insulin Aspart (Adult SC Insulin - Moder... Q6 SC Last administered on 06:03; Admin Dose 4 UNIT; Start 03/18/16 at 06:30 Dextrose 1,000 ml @ 60 mls/hr [id number] IV Last administered on 03/19/16 08:31; Admin Dose 60 MLS/HR; Start 03/18/16 at 16:30 Vancomycin HCl 2 gm/Sodium Chloride 500 ml @ 125 mls/hr ONCE IVPB ; Start at 12:00; Stop 03/19/16 at 15:59 Vancomycin HCl/ Sodium Chloride (Vancocin/NS) 250 ml @ 83.333 mls/ hr Q24H IVPB ; Start 03/20/16 at 12:00 MILAGRO RUIZ NP Mar 19, 2016 11:55
[2016-03-19] MEDS ORDERED: VANCOMYCIN 2 GM in SOD CHLORIDE 0.9% 500 ML IVPB SCH (12:00)
--- NOTE | 2016-03-19 12:15 | RADRPT ---
PROCEDURE: CT Brain without contrast. CLINICAL INDICATION: Altered mental status. TECHNIQUE: A CT of the brain was performed on a GE 64-slice CT scanner utilizing axial imaging fro m the skull base through the vertex without intravenous contrast. Multiplanar reformatted images wer e made. One or more the following dose reduction techniques were utilized: Automated exposure contr ol, adjustment of the mA and /or kV according to patient size, or use of iterative reconstruction te gennynique. The CTDIvol is 42.8 and 42.8 mGy and the DLP is 990.3 mGycm. Images had to be repeated du e to patient motion. COMPARISON: None. FINDINGS: Images are degraded by patient motion, though the study is of gross diagnostic quality. There is no intracranial hemorrhage, mass effect, or midline shift. No extra-axial fluid collection is seen. T here is relative calcific density projecting over the right cerebellum, which may be vascular in shirin ure, though is suboptimally evaluated due to the extensive patient motion. Mild to moderate atrophy is identified with compensatory ventricular and sulcal enlargement. There is mild decreased attenu ation in the periventricular and deep white matter, compatible with microvascular ischemic disease. A chronic lacunar infarct is seen in the left centrum semiovale and right thalamus. The sorto white m atter differentiation is well preserved with no acute infarct detected. The osseous structures and visualized paranasal sinuses are unremarkable. IMPRESSION: 1. No no definite evidence of acute intracranial pathology. There is a calcific density projecting over the superior cerebellum along the tentorium. This is suboptimally evaluated due to extensive p atient motion. Consider follow-up once the patient is able to walk.. 2. Mild to moderate diffuse atrophy. 3. Mild microvascular ischemic disease. Small chronic lacunar infarcts are seen in the right thala mus and left centrum semiovale. RPTAT: PP .Mary Kendall MD, MD Date Time Electronically viewed and signed by .Mary Kendall MD, on 03/19/2016 12:14 .H/
--- NOTE | 2016-03-19 12:35 | RADRPT ---
PROCEDURE: CT Chest without contrast. CLINICAL INDICATION: Shortness of breath. Altered mental status. TECHNIQUE: CT scan of the chest without contrast was performed on a multidetector high-resolution CT scanner. Coronal and sagittal reformatted images were obtained from the axial source images. The total exam CTDI equals 18.78 mGy and the total exam DLP equals 757.78 mGy-cm. One or more of the following dose reduction techniques were used: Automated exposure control. Adjustment of the mA and/or kV according to patient size. Use of iterative reconstruction technique. COMPARISON: Chest x-ray 03/18/2016 FINDINGS: There is near complete atelectasis of the left lower lobe. There is debris / secretion distal left main lower lobe bronchus with normal aeration of the posterior basal segmental bronchi. There is sm all left pleural effusion. There is trace right pleural effusion with mild basilar atelectasis. Pa tchy ground-glass densities are seen in the upper lungs. The mediastinum is unremarkable without evidence for mass or lymphadenopathy. The vascular structur es of the mediastinum are normal in course and caliber. Aortic vascular calcifications and coronary artery calcifications are present. The heart size is enlarged without evidence for pericardial thi ckening or effusion. The axillary regions, subpectoral regions, and supraclavicular regions are all unremarkable. Imagin g obtained through the upper abdomen reveals no acute abnormality. The surrounding osseous structur es are remarkable for degenerative spondylosis of the spine. No osteolytic or osteoblastic lesion i s detected. IMPRESSION: 1. Near complete atelectasis of the left lower lobe with debris / secretion in the distal left lower lobe bronchus. Normal aeration of the posterolateral subsegmental bronchi. Consider bronchoscopy for further evaluation. 2. Small left and trace right pleural effusions with mild right basilar atelectasis. 3. Small focal areas of ground-glass densities in the upper lungs are nonspecific and could represe nt infectious/inflammatory changes. 4. Cardiomegaly. 5. Aortic and coronary artery calcifications. RPTAT: BB .Drew Tejeda MD, MD Date Time Electronically viewed and signed by .Drew Tejeda MD, on 03/19/2016 12:34 .O/
--- NOTE | 2016-03-19 14:51 | CONS ---
Date/Time of Note Date/Time of Note DATE: 03/19/16 TIME: 14:48 Assessment/Plan Assessment/Plan Additional Assessment/Plan Atrial fibrillation Respiratory failure Preserved ejection fraction Possible aspiration pneumonia Hypertension Anemia Hypernatremia -Patient with increased heart rates during transport but currently since returned, heart rates have improved. Continue IV Cardizem, IV hydralazine and clonidine patch. Consultation Date/Type/Reason Admit Date/Time Feb 29, 2016 at 18:54 Initial Consult Date 03/17/16 Type of Consultation: cv Referring Provider: KANCHAN LEONARD MD 24 HR Interval Summary Free Text/Dictation Patient returned from CAT scan, heart rate elevated during transport but currently improving Exam/Review of Systems Vital Signs Vitals Vital Signs Date Time Temp Pulse Resp B/P Pulse Ox O2 Delivery O2 Flow Rate FiO2 03/19/16 14:15 111 24 100 Nasal Cannula 2.0 03/19/16 09:30 131/60 03/19/16 08:00 97.5 03/18/16 01:36 22 Intake and Output 03/18/16 03/18/16 03/19/16 15:00 23:00 07:00 Output Total 1700 ml 980 ml 1000 ml Balance -1700 ml -980 ml -1000 ml Exam Awake, moaning at times Head: normocephalic Respiratory: other (course bs) Cardiovascular: irregular rhythm, other (s1s2) Gastrointestinal: bowel sounds, non-tender, soft Extremities: edema Results Result Diagram: 03/19/16 0819 03/19/16 0819 Results 24 hrs Laboratory Tests Test 03/18/16 17:06 03/18/16 21:24 03/19/16 00:37 03/19/16 05:55 Bedside Glucose 223 H 231 H 234 H 191 Test 03/19/16 08:19 03/19/16 12:38 Anion Gap 13 Basophils # 0.3 H Basophils % 1.9 Blood Morphology Comment Blood Urea Nitrogen 48 H Calcium Level 8.2 L Carbon Dioxide Level 31 Chloride Level 106 Creatinine 1.02 H Differential Comment AUTO w/SCAN Eosinophils # 0.0 Eosinophils % 0.0 Glucose Level 290 H Hematocrit 32.3 L Hemoglobin 10.8 L Lymphocytes # 0.8 Lymphocytes % 4.8 L Magnesium Level 2.1 Mean Corpuscular Hemoglobin 28.0 L Mean Corpuscular Hemoglobin Concent 33.3 Mean Corpuscular Volume 84.0 Mean Platelet Volume 8.8 Monocytes # 0.6 Monocytes % 3.5 Neutrophils # 14.4 H Neutrophils % 89.8 H Nucleated Red Blood Cells # 0.0 Nucleated Red Blood Cells % 0.0 Platelet Count 141 # Potassium Level 4.5 Red Blood Count 3.85 L Red Cell Distribution Width 16.2 H Sodium Level 145 H White Blood Count 16.1 H Bedside Glucose 187 Medications Medications Current Medications Brimonidine Tartrate (Alphagan 0.2%) 1 drop Q8 BOTH EYES Last administered on 14:10; Admin Dose 1 DROP; Start 03/01/16 at 06:00 Latanoprost (Xalatan) 1 drop QHS BOTH EYES Last administered on 03/18/16 21:09 ; Admin Dose 1 DROP; Start 03/01/16 at 21:00 Mycophenolate Mofetil (Cellcept) 500 mg BID PO Last administered on 03/14/16at 08:44; Admin Dose 500 MG; Start 03/01/16 at 09:00 Acetaminophen (Tylenol Tab) 650 mg Q4H PRN PO pain/fever Last administered on 03/08/16at 12:49; Admin Dose 650 MG; Start 03/01/16 at 01:00 Ondansetron HCl (Zofran Inj) 4 mg Q4H PRN IV nausea Last administered on at 02:23; Admin Dose 4 MG; Start 03/01/16 at 01:00 Morphine Sulfate (morphine) 2 mg Q2H PRN IV pain Last administered on 03/19/16 01:55; Admin Dose 2 MG; Start 03/01/16 at 01:00 Miscellaneous Information 1 ea NOTE XX ; Start 03/01/16 at 02:00 Glucose (Glutose) 15 gm Q15M PRN PO DECREASED GLUCOSE; Start 03/01/16 at 02:00 Glucose (Glutose) 22.5 gm Q15M PRN PO DECREASED GLUCOSE; Start 03/01/16 at 02: 00 Dextrose (D50w Syringe) 25 ml Q15M PRN IV DECREASED GLUCOSE Last administered on 03/13/16at 13:36; Admin Dose 25 ML; Start 03/01/16 at 02:00 Dextrose (D50w Syringe) 50 ml Q15M PRN IV DECREASED GLUCOSE Last administered on 03/13/16 12:30; Admin Dose 50 ML; Start 03/01/16 at 02:00 Glucagon (Glucagen) 1 mg Q15M PRN IM DECREASED GLUCOSE; Start 03/01/16 at 02: 00 Glucose (Glutose) 15 gm Q15M PRN BUCCAL DECREASED GLUCOSE; Start 03/01/16 at 02:00 Diagnostic Test (Pha) (Accucheck) 1 ea 02 XX Last administered on 03/18/16 02: 00; Admin Dose 1 EA; Start 03/02/16 at 02:00 Bisacodyl (Dulcolax Supp) 10 mg DAILY PRN [place] CONSTIPATION Last administered on 03/08/16 23:47; Admin Dose 10 MG; Start 03/03/16 at 11:30 Clotrimazole (Lotrimin Cr) 1 applic BID TOP Last administered on 03/19/16 08:45 ; Admin Dose 1 APPLIC; Start 03/03/16 at 13:30 Docusate Sodium (Colace) 100 mg BID PO Last administered on 03/14/16 08:45; Admin Dose 100 MG; Start 03/05/16 at 10:30 Sodium Chloride (Deep Sea) 1 spray Q4H PRN NASAL NASAL CONGESTION; Start 03/07 at 17:30 Ondansetron HCl (Zofran Inj) 4 mg Q4H PRN IV NAUSEA AND/OR VOMITING; Start at 23:30 Pantoprazole (Protonix Iv) 40 mg BID@06,18 IV Last administered on 03/19/16 05: 45; Admin Dose 40 MG; Start 03/10/16 at 06:00 Fentanyl (Duragesic 75 Mcg/Hr Patch) 1 patch Q72H TRANSDERM Last administered on 03/17/16 10:18; Admin Dose 1 PATCH; Start 03/11/16 at 09:00 Gabapentin (Neurontin) 300 mg Q8 GTB Last administered on 03/14/16 14:46; Admin Dose 300 MG; Start 03/13/16 at 06:00 Methylprednisolone Sodium Succinate (Solu-Medrol) 30 mg DAILY IV Last administered on 03/19/16 08:43; Admin Dose 30 MG; Start 03/13/16 at 09:30 Lactulose 20 gm 20 gm Q6 PO Last administered on 03/14/16 12:19; Admin Dose 20 GM; Start 03/13/16 at 18:00 Meropenem/Sodium Chloride (Merrem/NS) 100 ml @ 200 mls/hr Q12 IVPB Last administered on 03/19/16 08:44; Admin Dose 200 MLS/HR; Start 03/13/16 at 17:00 Hydralazine HCl (Apresoline) 10 mg Q6H PRN IV SBP>160 Last administered on 00:48; Admin Dose 10 MG; Start 03/14/16 at 22:00 Clonidine HCl (Catapres-Tts 2 Patch) 1 patch Q7D TRANSDERM Last administered on 03/14/16at 22:00; Admin Dose 1 PATCH; Start 03/14/16 at 22:00 Diltiazem HCl (Cardizem Iv) 10 mg Q4 IV Last administered on 03/19/16 14:10; Admin Dose 10 MG; Start 03/15/16 at 01:00 Lubiprostone 24 mcg 24 mcg BID PO ; Start 03/15/16 at 16:00 Diltiazem HCl (Cardizem-D5W 125 Mg/125 ml Drip) 125 ml @ 5 mls/hr TITRATE IV Last administered on 03/17/16at 02:43; Admin Dose 15 MLS/HR; Start 03/16/16 at 10:30 Lorazepam 0.5 mg 0.5 mg Q8H PRN IV ANXIETY Last administered on 03/18/16 18:59 ; Admin Dose 0.5 MG; Start 03/16/16 at 23:00 Total Parenteral Nutrition 1,000 ml @ 40 mls/hr Q24H IV Last administered on 16:01; Admin Dose 40 MLS/HR; Start 03/17/16 at 16:00 Fat Emulsion Intravenous (Liposyn Ii 20%) 250 ml @ 10.4 mls/hr Q24H IV Last administered on 03/18/16 16:01; Admin Dose 10.4 MLS/HR; Start 03/17/16 at 16:00 Insulin Glargine (Lantus) 50 unit QHS SC Last administered on 03/18/16 21:34; Admin Dose 50 UNIT; Start 03/18/16 at 21:00 Insulin Aspart (Adult SC Insulin - Moder... Q6 SC Last administered on 12:42; Admin Dose 4 UNIT; Start 03/18/16 at 06:30 Dextrose 1,000 ml @ 60 mls/hr [id number] IV Last administered on 03/19/16 08:31; Admin Dose 60 MLS/HR; Start 03/18/16 at 16:30 Vancomycin HCl 2 gm/Sodium Chloride 500 ml @ 125 mls/hr ONCE IVPB Last administered on 03/19/16 12:46; Admin Dose 125 MLS/HR; Start 03/19/16 at 12:00; Stop 03/19/16 at 15:59 Vancomycin HCl/ Sodium Chloride (Vancocin/NS) 250 ml @ 83.333 mls/ hr Q24H IVPB ; Start 03/20/16 at 12:00 Simone Carmen DO Mar 19, 2016 14:51
[2016-03-19 15:50] LABS: ADD UMIC YES; URINE BILIRUBIN (Dip) NEGATIVE (NEGATIVE); URINE BLOOD (Dip) 1+ (NEGATIVE); URINE COLOR LT. YELLOW (YELLOW); URINE GLUCOSE (Dip) NEGATIVE (NEGATIVE); URINE KETONES (Dip) NEGATIVE (NEGATIVE); URINE LEUKOCYTE ESTERASE (Dip) 2+ (NEGATIVE); URINE NITRITE (Dip) NEGATIVE (NEGATIVE); URINE TOTAL PROTEIN (Dip) 1+ (NEGATIVE); URINE UROBILINOGEN (Dip) 0.2 E.U./dL (0.1-1.0)
[2016-03-19 17:04] LABS: SQUAMOUS EPITHELIAL CELL,UR FEW
[2016-03-19 17:05] LABS: BACTERIA,URINE MODERATE; TRANSITIONAL EPI CELLS,URINE MODERATE
[2016-03-19] MEDS: FAT EMULSION 20% 250 ML IV SCH (17:18)
[2016-03-19] MEDS: TPN 1,000 ML IV SCH (17:19)
[2016-03-19] MEDS: DEXTROSE 5%-0.45% NACL 1,000 ML IV SCH (18:16)
[2016-03-19] MEDS ORDERED: LACTULOSE 30ML CUP PR SCH (21:00)
[2016-03-19] MEDS: LATANOPROST 0.005% 2.5 ML OPH BOTH EYES SCH (21:48)
[2016-03-19] MEDS: INSULIN GLARGINE [LANtus] 3 ML PEN SC SCH (22:24)
[2016-03-20] VITALS (23 sets, daily range): BP systolic 131–173; BP diastolic 59–147; PULSE 68–139; RESP 16–28
[2016-03-20] MEDS: DILTIAZEM 25 MG INJ IV SCH ×6 (00:40→21:22)
[2016-03-20] MEDS: Insulin NOVOLOG SS MODERATE Algorithm(NPO/TPN/ENTERAL FEEDS) SC SCH ×4 (00:44→16:53)
[2016-03-20] MEDS: ALBUTEROL/IPRATROPIUM (NEB) 3 ML AMP HHN SCH ×4 (02:14→19:52)
[2016-03-20] MEDS: ACCUCHECK AT 2AM (Patients on SS coverage) XX SCH (02:38)
[2016-03-20] MEDS: hydrALAzine 20 MG INJ IV PRN (02:41)
[2016-03-20 04:54] LABS: POTASSIUM 3.8 mmol/L (3.5-5.1)
[2016-03-20 04:57] LABS: CREATININE 0.82 mg/dl (0.44-1.00)
[2016-03-20 04:58] LABS: CALCIUM 8.5 mg/dl (8.4-10.2); MAGNESIUM 1.8 mg/dl (1.7-2.5)
[2016-03-20 05:03] LABS: HEMATOCRIT 33.7 % (37.0-47.0); HEMOGLOBIN 11.2 g/dl (12.0-16.0); MEAN CORPUSCULAR HEMOGLOBIN 27.5 pg (29.0-33.0); MEAN CORPUSCULAR HGB CONC 33.2 g/dl (32.0-37.0); MEAN CORPUSCULAR VOLUME 82.9 fl (82.0-101.0); MEAN PLATELET VOLUME 8.4 fl (7.4-10.4); PLATELET COUNT 124 10^3/UL (140-440); RED BLOOD COUNT 4.06 10^6/ul (4.20-5.40); RED CELL DISTRIBUTION WIDTH 16.6 % (11.5-14.5); UNCORRECTED WBC 15.1 10^3/ul (4.8-10.8); WHITE BLOOD COUNT 15.1 10^3/ul (4.8-10.8)
[2016-03-20 05:04] LABS: CONDITION 1; LH ANALYZER COMMENTS 1; SUSPECT 1
[2016-03-20] MEDS: PANTOPRAZOLE 40 MG INJ IV SCH ×2 (05:44→18:10)
[2016-03-20] MEDS: BRIMONIDINE 0.2% 5 ML BTL BOTH EYES SCH ×3 (05:45→21:22)
[2016-03-20] MEDS: GABAPENTIN 300 MG CAP GTB SCH ×3 (05:45→21:24)
[2016-03-20 07:42] LABS: LYMPHOCYTES # 1.1 10^3/ul (0.8-2.9); MONOCYTE # 0.5 10^3/ul (0.3-0.9); NEUTROPHIL # 13.6 10^3/ul (1.6-7.5)
[2016-03-20 07:43] LABS: ANISOCYTOSIS 1+; HYPOCHROMASIA 1+; PLATELET ESTIMATE PLT APPEAR DECREASED
[2016-03-20 08:06] LABS: AADO2 Arterial 58.1 mmHg (7.0-24.0); Allen Test ACCEPTAB; Arterial Base Excess 3.5 mmol/L (-3.0-3); Arterial COHb 0.2 % (0.0-3.0); Arterial Fraction of Oxyhgb 96.8 % (93.0-99.0); Arterial HCO3 26.1 mmol/L (22.0-26.0); Arterial MetHb 0.3 % (0.0-1.5); MODE NASAL CANNULA
[2016-03-20] MEDS: METHYLPREDNISOLONE 40 MG INJ IV SCH (08:07)
[2016-03-20] MEDS: MEROPENEM 500 MG in SOD CHLORIDE 0.9% 100 ML IVPB SCH ×2 (08:09→21:23)
[2016-03-20] MEDS: DOCUSATE SODIUM 100 MG CAP PO SCH ×2 (09:00→21:00)
[2016-03-20] MEDS: MYCOPHENOLATE 250 MG CAP PO SCH ×2 (09:00→21:00)
[2016-03-20] MEDS: LUBIPROSTONE 24 MCG CAP PO SCH ×2 (09:00→21:00)
[2016-03-20] MEDS: CLOTRIMAZOLE 1% 30 GM CR TOP SCH ×2 (09:18→21:22)
--- NOTE | 2016-03-20 10:14 | CONS ---
Date/Time of Note Date/Time of Note DATE: 03/20/16 TIME: 10:12 Consult Date/Type/Reason Admit Date/Time Feb 29, 2016 at 18:54 Type of Consultation: Pulm Ordering Provider: KANCHAN LEONARD MD Subjective Clinically stable little better today no respiratory distress. neurologically unchanged Objective Vital Signs Date Time Temp Pulse Resp B/P Pulse Ox O2 Delivery O2 Flow Rate FiO2 03/20/16 08:30 99 24 100 Nasal Cannula 2.0 03/20/16 06:00 146/70 03/20/16 04:00 97.6 03/18/16 01:36 22 Intake and Output 03/19/16 03/19/16 03/20/16 15:00 23:00 07:00 Intake Total 100 ml 822.8 ml 752.8 ml Output Total 550 ml 775 ml 625 ml Balance -450 ml 47.8 ml 127.8 ml GENERAL: Frail elderly lady confused. VITAL SIGNS: per chart NECK: Supple. No JVD or lymphadenopathy. CARDIAC EXAM: S1, S2. No added sounds or murmurs. CHEST: Diminished air entry bilaterally with rales ABDOMEN: Soft, nontender. No guarding or rebound. EXTREMITIES: No cyanosis, clubbing edema +1 NEUROLOGIC: Generalized weakness, not following commands Results/Medications Result Diagram: 03/20/16 0419 03/20/16 0419 Results 24 hrs Laboratory Tests Test 03/19/16 12:38 03/19/16 14:00 03/19/16 17:23 03/19/16 20:58 Bedside Glucose 187 191 188 Urine Bacteria MODERATE Urine Bilirubin NEGATIVE Urine Clarity HAZY Urine Color LT. YELLOW Urine Glucose NEGATIVE Urine Hemoglobin 1+ H Urine Ketones NEGATIVE Urine Leukocyte Esterase 2+ H Urine Microscopic RBC 2-5 Urine Microscopic WBC 5-10 Urine Nitrite NEGATIVE Urine Specific [place] 1.020 Urine Squamous Epithelial Cells FEW Urine Total Protein 1+ H Urine Transitional Epithelial Cells MODERATE Urine Urobilinogen 0.2 E.U./dL Urine Yeast MANY Urine pH 6.0 Test 03/20/16 00:42 03/20/16 01:57 03/20/16 04:19 03/20/16 05:43 Bedside Glucose 197 189 195 Anion Gap 13 Anisocytosis 1+ Basophils # Basophils % Blood Morphology Comment Blood Urea Nitrogen 46 H Calcium Level 8.5 Carbon Dioxide Level 31 Chloride Level 107 Creatinine 0.82 Differential Comment MANUAL DIFF Eosinophils # Eosinophils % Glucose Level 188 # Hematocrit 33.7 L Hemoglobin 11.2 L Hypochromasia 1+ Lymphocytes # 1.1 Lymphocytes % 7.0 L Magnesium Level 1.8 Mean Corpuscular Hemoglobin 27.5 L Mean Corpuscular Hemoglobin Concent 33.2 Mean Corpuscular Volume 82.9 Mean Platelet Volume 8.4 Monocytes # 0.5 Monocytes % 3.0 Neutrophils # 13.6 H Neutrophils % 90.0 H Nucleated Red Blood Cells # Nucleated Red Blood Cells % Platelet Count 124 L Platelet Estimate PLT APPEAR DECREASED Potassium Level 3.8 Red Blood Count 4.06 L Red Cell Distribution Width 16.6 H Sodium Level 147 H White Blood Count 15.1 H Test 03/20/16 07:00 Arterial Blood HCO3 26.1 H Arterial Blood Base Excess 3.5 H Arterial Blood Oxygen Saturation 97.3 David Test ACCEPTAB Arterial Blood Gas Puncture Site Right Radial Arterial Blood Carboxyhemoglobin 0.2 Arterial Blood Date Drawn 03/20/2016 7:20:34 AM Arterial Blood Methemoglobin 0.3 Arterial Blood pCO2 (Temp correct) 32.8 L Arterial Blood pH (Temp corrected) 7.518 H Arterial Blood pO2 (Temp corrected) 95.6 H Blood Gas A-a O2 Differential 58.1 H Blood Gas Modality NASAL CANNULA Blood Gas Notified Time 03/20/2016 8:06:11 AM Blood Gas Notified Whom JLD Blood Gas Specimen Source Blood arterial Blood Gas Temperature 37.0 FiO2 27.0 Oxyhemoglobin Percent 96.8 Total Hemoglobin 12.0 Medications Current Medications Brimonidine Tartrate (Alphagan 0.2%) 1 drop Q8 BOTH EYES Last administered on 05:45; Admin Dose 1 DROP; Start 03/01/16 at 06:00 Latanoprost (Xalatan) 1 drop QHS BOTH EYES Last administered on 03/19/16 21:48 ; Admin Dose 1 DROP; Start 03/01/16 at 21:00 Mycophenolate Mofetil (Cellcept) 500 mg BID PO Last administered on 03/14/16 08:44; Admin Dose 500 MG; Start 03/01/16 at 09:00 Acetaminophen (Tylenol Tab) 650 mg Q4H PRN PO pain/fever Last administered on 03/08/16at 12:49; Admin Dose 650 MG; Start 03/01/16 at 01:00 Ondansetron HCl (Zofran Inj) 4 mg Q4H PRN IV nausea Last administered on at 02:23; Admin Dose 4 MG; Start 03/01/16 at 01:00 Morphine Sulfate (morphine) 2 mg Q2H PRN IV pain Last administered on 03/19/16 01:55; Admin Dose 2 MG; Start 03/01/16 at 01:00 Miscellaneous Information 1 ea NOTE XX ; Start 03/01/16 at 02:00 Glucose (Glutose) 15 gm Q15M PRN PO DECREASED GLUCOSE; Start 03/01/16 at 02:00 Glucose (Glutose) 22.5 gm Q15M PRN PO DECREASED GLUCOSE; Start 03/01/16 at 02: 00 Dextrose (D50w Syringe) 25 ml Q15M PRN IV DECREASED GLUCOSE Last administered on 03/13/16 13:36; Admin Dose 25 ML; Start 03/01/16 at 02:00 Dextrose (D50w Syringe) 50 ml Q15M PRN IV DECREASED GLUCOSE Last administered on 03/13/16at 12:30; Admin Dose 50 ML; Start 03/01/16 at 02:00 Glucagon (Glucagen) 1 mg Q15M PRN IM DECREASED GLUCOSE; Start 03/01/16 at 02: 00 Glucose (Glutose) 15 gm Q15M PRN BUCCAL DECREASED GLUCOSE; Start 03/01/16 at 02:00 Diagnostic Test (Pha) (Accucheck) 1 ea 02 XX Last administered on 03/20/16 02: 38; Admin Dose 1 EA; Start 03/02/16 at 02:00 Bisacodyl (Dulcolax Supp) 10 mg DAILY PRN [place] CONSTIPATION Last administered on 03/08/16 23:47; Admin Dose 10 MG; Start 03/03/16 at 11:30 Clotrimazole (Lotrimin Cr) 1 applic BID TOP Last administered on 03/20/16 09:18 ; Admin Dose 1 APPLIC; Start 03/03/16 at 13:30 Docusate Sodium (Colace) 100 mg BID PO Last administered on 03/14/16 08:45; Admin Dose 100 MG; Start 03/05/16 at 10:30 Sodium Chloride (Deep Sea) 1 spray Q4H PRN NASAL NASAL CONGESTION; Start 03/07 at 17:30 Ondansetron HCl (Zofran Inj) 4 mg Q4H PRN IV NAUSEA AND/OR VOMITING; Start at 23:30 Pantoprazole (Protonix Iv) 40 mg BID@06,18 IV Last administered on 03/20/16 05: 44; Admin Dose 40 MG; Start 03/10/16 at 06:00 Fentanyl (Duragesic 75 Mcg/Hr Patch) 1 patch Q72H TRANSDERM Last administered on 03/17/16at 10:18; Admin Dose 1 PATCH; Start 03/11/16 at 09:00 Gabapentin (Neurontin) 300 mg Q8 GTB Last administered on 03/14/16at 14:46; Admin Dose 300 MG; Start 03/13/16 at 06:00 Methylprednisolone Sodium Succinate 30 mg 30 mg DAILY IV Last administered on 08:07; Admin Dose 30 MG; Start 03/13/16 at 09:30 Meropenem/Sodium Chloride (Merrem/NS) 100 ml @ 200 mls/hr Q12 IVPB Last administered on 03/20/16 08:09; Admin Dose 200 MLS/HR; Start 03/13/16 at 17:00 Hydralazine HCl (Apresoline) 10 mg Q6H PRN IV SBP>160 Last administered on 02:41; Admin Dose 10 MG; Start 03/14/16 at 22:00 Clonidine HCl (Catapres-Tts 2 Patch) 1 patch Q7D TRANSDERM Last administered on 03/14/16at 22:00; Admin Dose 1 PATCH; Start 03/14/16 at 22:00 Diltiazem HCl (Cardizem Iv) 10 mg Q4 IV Last administered on 03/20/16 08:07; Admin Dose 10 MG; Start 03/15/16 at 01:00 Lubiprostone 24 mcg 24 mcg BID PO ; Start 03/15/16 at 16:00 Diltiazem HCl (Cardizem-D5W 125 Mg/125 ml Drip) 125 ml @ 5 mls/hr TITRATE IV Last administered on 03/17/16at 02:43; Admin Dose 15 MLS/HR; Start 03/16/16 at 10:30 Lorazepam 0.5 mg 0.5 mg Q8H PRN IV ANXIETY Last administered on 03/18/16 18:59 ; Admin Dose 0.5 MG; Start 03/16/16 at 23:00 Total Parenteral Nutrition 1,000 ml @ 40 mls/hr Q24H IV Last administered on 17:19; Admin Dose 40 MLS/HR; Start 03/17/16 at 16:00 Fat Emulsion Intravenous (Liposyn Ii 20%) 250 ml @ 10.4 mls/hr Q24H IV Last administered on 03/19/16 17:18; Admin Dose 10.4 MLS/HR; Start 03/17/16 at 16:00 Insulin Glargine (Lantus) 50 unit QHS SC Last administered on 03/19/16 22:24; Admin Dose 50 UNIT; Start 03/18/16 at 21:00 Insulin Aspart (Adult SC Insulin - Moder... Q6 SC Last administered on 05:47; Admin Dose 4 UNIT; Start 03/18/16 at 06:30 Vancomycin HCl 1.5 gm/Sodium Chloride 250 ml @ 83.333 mls/ hr Q24H IVPB ; Start 03/20/16 at 12:00 Dextrose/Sodium Chloride (D5-1/2ns) 1,000 ml @ 50 mls/hr Q20H IV Last administered on 03/19/16 18:16; Admin Dose 50 MLS/HR; Start 03/19/16 at 18:00 Assessment/Plan Chief Complaint/Hosp Course IMPRESSION: An 85-year-old female with: 1. Acute hypoxemic respiratory failure. Significant aspiration component significant neuromuscular weakness. 2. Chronic obstructive pulmonary disease exacerbation. 3. Bronchitis. As above persistent leukocytosis 4. Hypernatremia. 5. History of diabetes. Poor Glycemic control exacerbated by steroids 6. History of hypertension. 7. Atrial fibrillation with rapid ventricular rate 8. Coronary artery disease. 9. Anemia likely possibly dilutional questionable GI loss 10. Encephalopathy possibly toxic metabolic 11. 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 Deep suctioning. Aggressive pulmonary toilet. Keep nothing by mouth 2. Supplemental oxygen 3. Antibiotics. We will add vancomycin secondary to worsening WBC. Ct chest noted. chest PT left base. 4. Bronchodilators. 5. Noninvasive positive pressure ventilation if needed. 6. Speech therapy recommendations continue aspiration precautions 7. Rate control per cardiology 8. GI evaluation for anemia 9. Correction of hyponatremia and hypokalemia 10. TPN 11. CT head noted Prognosis guarded. Long discussion with patient's son at bedside Problems: SHIVA PERES MD, [facility] Mar 20, 2016 10:14
--- NOTE | 2016-03-20 10:37 | CONS ---
Date/Time of Note Date/Time of Note DATE: 03/20/16 TIME: 10:30 Assessment/Plan Assessment/Plan Chief Complaint/Hosp Course 85 year old female with multiple medical issues currently admitted to the ICU for management of respiratory failure, afib with RVR, possible aspiration pneumonia, hypernatremia with persistent encephalopathy. CTH was done shows chronic microvascular changes, chronic lacunar infarcts. calcification along the tentorium, mild to moderate atrophy Recommendations: -may obtain MRI Brain without contrast for further evaluation -Routine EEG -avoid sedating medications, d/c pain patch -will continue to follow Problems: Consultation Date/Type/Reason Admit Date/Time Feb 29, 2016 at 18:54 Date of Consultation: Mar 20, 2016 Type of Consultation: neurology Reason for Consultation persistent encephalopathy Hx of Present Illness 85 year old female currently admitted in the ICU for multiple medical issues being treated for acute hypoxemic respiratory failure, COPD, bronchitis on antibiotics with persistent leukocytosis, hypernatremia, poorly controlled diabetes, hypertension, Afib with RVR, anemia with persistent encephalopathy. She was admitted to the hospital on 02/28 initial with respiratory issues, mental status progressively worsened during hospitalization. Per nursing staff she is able to arouse, very drowsy and unable to follow commands, moving all extremities. Subjective hx not possible: pt non-verbal Constitutional: no complaints Eyes: no complaints ENT: no complaints Respiratory: shortness of breath Cardiovascular: no complaints Gastrointestinal: no complaints Genitourinary: no complaints Neurologic: confusion Psychological: confusion Past Medical History Medical History: coronary artery disease, diabetes, hypertension Past Surgical History Past Surgical Hx: no surgical history Social History Alcohol Use: none Smoking Status: Current every day smoker Drug Use: none Exam/Review of Systems Vital Signs Vitals Vital Signs Date Time Temp Pulse Resp B/P Pulse Ox O2 Delivery O2 Flow Rate FiO2 03/20/16 08:30 99 24 100 Nasal Cannula 2.0 03/20/16 06:00 146/70 03/20/16 04:00 97.6 03/18/16 01:36 22 Intake and Output 03/19/16 03/19/16 03/20/16 15:00 23:00 07:00 Intake Total 100 ml 822.8 ml 752.8 ml Output Total 550 ml 775 ml 625 ml Balance -450 ml 47.8 ml 127.8 ml Exam examined off sedation elderly female , thin, receiving supplemental oxygen opens her eyes briefly to verbal stimuli drowsy, falls back asleep unable to maintain arousal, not following commands CN: RAHUL, blinks to threat, dolls intact no facial asymmetry Motor: withdraws in both arms and legs Sensory: intact throughout Coordination: non-cooperative Reflexes 2+ throughout symmetric Results Result Diagram: 03/20/16 0419 03/20/16 0419 Results 24 hrs Laboratory Tests Test 03/19/16 12:38 03/19/16 14:00 03/19/16 17:23 03/19/16 20:58 Bedside Glucose 187 191 188 Urine Bacteria MODERATE Urine Bilirubin NEGATIVE Urine Clarity HAZY Urine Color LT. YELLOW Urine Glucose NEGATIVE Urine Hemoglobin 1+ H Urine Ketones NEGATIVE Urine Leukocyte Esterase 2+ H Urine Microscopic RBC 2-5 Urine Microscopic WBC 5-10 Urine Nitrite NEGATIVE Urine Specific [place] 1.020 Urine Squamous Epithelial Cells FEW Urine Total Protein 1+ H Urine Transitional Epithelial Cells MODERATE Urine Urobilinogen 0.2 E.U./dL Urine Yeast MANY Urine pH 6.0 Test 03/20/16 00:42 03/20/16 01:57 03/20/16 04:19 03/20/16 05:43 Bedside Glucose 197 189 195 Anion Gap 13 Anisocytosis 1+ Basophils # Basophils % Blood Morphology Comment Blood Urea Nitrogen 46 H Calcium Level 8.5 Carbon Dioxide Level 31 Chloride Level 107 Creatinine 0.82 Differential Comment MANUAL DIFF Eosinophils # Eosinophils % Glucose Level 188 # Hematocrit 33.7 L Hemoglobin 11.2 L Hypochromasia 1+ Lymphocytes # 1.1 Lymphocytes % 7.0 L Magnesium Level 1.8 Mean Corpuscular Hemoglobin 27.5 L Mean Corpuscular Hemoglobin Concent 33.2 Mean Corpuscular Volume 82.9 Mean Platelet Volume 8.4 Monocytes # 0.5 Monocytes % 3.0 Neutrophils # 13.6 H Neutrophils % 90.0 H Nucleated Red Blood Cells # Nucleated Red Blood Cells % Platelet Count 124 L Platelet Estimate PLT APPEAR DECREASED Potassium Level 3.8 Red Blood Count 4.06 L Red Cell Distribution Width 16.6 H Sodium Level 147 H White Blood Count 15.1 H Test 03/20/16 07:00 Arterial Blood HCO3 26.1 H Arterial Blood Base Excess 3.5 H Arterial Blood Oxygen Saturation 97.3 David Test ACCEPTAB Arterial Blood Gas Puncture Site Right Radial Arterial Blood Carboxyhemoglobin 0.2 Arterial Blood Date Drawn 03/20/2016 7:20:34 AM Arterial Blood Methemoglobin 0.3 Arterial Blood pCO2 (Temp correct) 32.8 L Arterial Blood pH (Temp corrected) 7.518 H Arterial Blood pO2 (Temp corrected) 95.6 H Blood Gas A-a O2 Differential 58.1 H Blood Gas Modality NASAL CANNULA Blood Gas Notified Time 03/20/2016 8:06:11 AM Blood Gas Notified Whom JLD Blood Gas Specimen Source Blood arterial Blood Gas Temperature 37.0 FiO2 27.0 Oxyhemoglobin Percent 96.8 Total Hemoglobin 12.0 Medications Medications Current Medications Brimonidine Tartrate (Alphagan 0.2%) 1 drop Q8 BOTH EYES Last administered on 05:45; Admin Dose 1 DROP; Start 03/01/16 at 06:00 Latanoprost (Xalatan) 1 drop QHS BOTH EYES Last administered on 03/19/16 21:48 ; Admin Dose 1 DROP; Start 03/01/16 at 21:00 Mycophenolate Mofetil (Cellcept) 500 mg BID PO Last administered on 03/14/16at 08:44; Admin Dose 500 MG; Start 03/01/16 at 09:00 Acetaminophen (Tylenol Tab) 650 mg Q4H PRN PO pain/fever Last administered on 03/08/16 12:49; Admin Dose 650 MG; Start 03/01/16 at 01:00 Ondansetron HCl (Zofran Inj) 4 mg Q4H PRN IV nausea Last administered on 02:23; Admin Dose 4 MG; Start 03/01/16 at 01:00 Morphine Sulfate (morphine) 2 mg Q2H PRN IV pain Last administered on 03/19/16 01:55; Admin Dose 2 MG; Start 03/01/16 at 01:00 Miscellaneous Information 1 ea NOTE XX ; Start 03/01/16 at 02:00 Glucose (Glutose) 15 gm Q15M PRN PO DECREASED GLUCOSE; Start 03/01/16 at 02:00 Glucose (Glutose) 22.5 gm Q15M PRN PO DECREASED GLUCOSE; Start 03/01/16 at 02: 00 Dextrose (D50w Syringe) 25 ml Q15M PRN IV DECREASED GLUCOSE Last administered on 03/13/16at 13:36; Admin Dose 25 ML; Start 03/01/16 at 02:00 Dextrose (D50w Syringe) 50 ml Q15M PRN IV DECREASED GLUCOSE Last administered on 03/13/16at 12:30; Admin Dose 50 ML; Start 03/01/16 at 02:00 Glucagon (Glucagen) 1 mg Q15M PRN IM DECREASED GLUCOSE; Start 03/01/16 at 02: 00 Glucose (Glutose) 15 gm Q15M PRN BUCCAL DECREASED GLUCOSE; Start 03/01/16 at 02:00 Diagnostic Test (Pha) (Accucheck) 1 ea 02 XX Last administered on 03/20/16 02: 38; Admin Dose 1 EA; Start 03/02/16 at 02:00 Bisacodyl (Dulcolax Supp) 10 mg DAILY PRN [place] CONSTIPATION Last administered on 03/08/16at 23:47; Admin Dose 10 MG; Start 03/03/16 at 11:30 Clotrimazole (Lotrimin Cr) 1 applic BID TOP Last administered on 03/20/16 09:18 ; Admin Dose 1 APPLIC; Start 03/03/16 at 13:30 Docusate Sodium (Colace) 100 mg BID PO Last administered on 03/14/16at 08:45; Admin Dose 100 MG; Start 03/05/16 at 10:30 Sodium Chloride (Deep Sea) 1 spray Q4H PRN NASAL NASAL CONGESTION; Start 03/07 at 17:30 Ondansetron HCl (Zofran Inj) 4 mg Q4H PRN IV NAUSEA AND/OR VOMITING; Start at 23:30 Pantoprazole (Protonix Iv) 40 mg BID@06,18 IV Last administered on 03/20/16 05: 44; Admin Dose 40 MG; Start 03/10/16 at 06:00 Gabapentin (Neurontin) 300 mg Q8 GTB Last administered on 03/14/16at 14:46; Admin Dose 300 MG; Start 03/13/16 at 06:00 Methylprednisolone Sodium Succinate 30 mg 30 mg DAILY IV Last administered on 08:07; Admin Dose 30 MG; Start 03/13/16 at 09:30 Meropenem/Sodium Chloride (Merrem/NS) 100 ml @ 200 mls/hr Q12 IVPB Last administered on 03/20/16 08:09; Admin Dose 200 MLS/HR; Start 03/13/16 at 17:00 Hydralazine HCl (Apresoline) 10 mg Q6H PRN IV SBP>160 Last administered on 02:41; Admin Dose 10 MG; Start 03/14/16 at 22:00 Clonidine HCl (Catapres-Tts 2 Patch) 1 patch Q7D TRANSDERM Last administered on 03/14/16at 22:00; Admin Dose 1 PATCH; Start 03/14/16 at 22:00 Diltiazem HCl (Cardizem Iv) 10 mg Q4 IV Last administered on 03/20/16 08:07; Admin Dose 10 MG; Start 03/15/16 at 01:00 Lubiprostone 24 mcg 24 mcg BID PO ; Start 03/15/16 at 16:00 Diltiazem HCl 125 ml @ 5 mls/hr TITRATE IV Last administered on 03/17/16at 02: 43; Admin Dose 15 MLS/HR; Start 03/16/16 at 10:30 Total Parenteral Nutrition 1,000 ml @ 40 mls/hr Q24H IV Last administered on 17:19; Admin Dose 40 MLS/HR; Start 03/17/16 at 16:00 Fat Emulsion Intravenous (Liposyn Ii 20%) 250 ml @ 10.4 mls/hr Q24H IV Last administered on 03/19/16 17:18; Admin Dose 10.4 MLS/HR; Start 03/17/16 at 16:00 Insulin Glargine (Lantus) 50 unit QHS SC Last administered on 03/19/16 22:24; Admin Dose 50 UNIT; Start 03/18/16 at 21:00 Insulin Aspart (Adult SC Insulin - Moder... Q6 SC Last administered on 05:47; Admin Dose 4 UNIT; Start 03/18/16 at 06:30 Vancomycin HCl 1.5 gm/Sodium Chloride 250 ml @ 83.333 mls/ hr Q24H IVPB ; Start 03/20/16 at 12:00 Dextrose/Sodium Chloride (D5-1/2ns) 1,000 ml @ 50 mls/hr Q20H IV Last administered on 03/19/16 18:16; Admin Dose 50 MLS/HR; Start 1/2/17 at 18:00 SRIKANTH REDDY MD Mar 20, 2016 10:37
[2016-03-20] MEDS: VANCOMYCIN 1.5 GM in SOD CHLORIDE 0.9% 250 ML IVPB SCH (11:22)
--- NOTE | 2016-03-20 11:33 | PN ---
Date/Time of Note Date/Time of Note DATE: 03/20/16 TIME: 10:38 Assessment/Plan VTE Prophylaxis VTE Prophylaxis Intervention: SCD's Lines/Catheters IV Catheter Type (from Nrsg): PICC Line Central line still needed: Yes Urinary Cath still in place: Yes Reason Cath still needed: other (indicate) (Monitoring UOP ) Assessment/Plan Assessment/Plan 85 yo female with: 1. Respiratory distress and insufficiency, improved but patient sleepy and altered this past few days, CT head negative Fentanyl patch removed and Ativan discontinued per Neurology and absolutely appropriately so WBC coming down and respiratory status stable on 2L NC and still on steroids and IV abx, patient with known immunosupression Still on Aspiration protocol, MRI Brain pending Continue meropenem per ID and also on Vancomycin CT chest pending. Pending MRI results and improved MS will need repeat swallow evaluation. 2. Constipation improved overall, likely secondary to her hyperglycemia and Fentanyl patch use. KUB showed colon full of fecal matter, and CT abd/pelvis showed no evidence of abdominopelvic mass, lymphadenopathy or focal acute inflammatory pathology. FOB was positive but Hb now stable Will need EGD at least and possibly PEG tube placement 3. Atrial fibrillation with episodes of RVR, better controlled now Renal function back to normal now Hold Eliquis given ? GI bleeding and once EGD and source r/o will recommend to resume Replete Mg today 4. JUAN with known CKD: Renal function back to baseline and even more improved Uremia resolved by now. 5. Anemia, acute: s/p 2 units pRBC on 03/16, Hb up to 11 today and has remained stable over past few days, no acute GIB noted 6. Diabetes Mellitus: TPN being adjusted as BG up and also was noted to be hypernatremic BG and Na better Monitor electrolytes while on TPN and adjusting Lantus and SSI accordingly. 7. Hypertension. Continue Clonidine, Norvasc, and Cardizem and titrate accordingly 8. Pemphigoid disease per family: on Cellcept. 9. Chronic Pain: on fentanyl patch, I have approached the family to d/c fentanyl patch as probably part of cause of bowel issues but they have been reluctant/resistant. Given now issues with MS, agree with Neurology to just d/c if need be we can resume at lower dose of 25 or 50 mcg 10 Nutrition: NPO now, may need PEG if not passing re-evaluation of swallow study. TPN started 03/17. Prophylaxis: Holding Eliquis for now due to current concerns about GI bleeding. SCDs. Protonix for GI prophylaxis Disposition: Case d/w with care team in ICU and also with home care manager rn at bedside. I will also discuss with Son Harshad Sarabia MD [phone] Subjective 24 Hr Interval Summary Free Text/Dictation Patient's respiratory status much improved on 2L NC WBC trending down and on appropriate abx based on cx so far High risk for aspiration and for now awaiting MRI and reevaluation of swallow +/ - PEG tube placement Renal function back to baseline Exam/Review of Systems Vital Signs Vitals Vital Signs Date Time Temp Pulse Resp B/P Pulse Ox O2 Delivery O2 Flow Rate FiO2 03/20/16 08:30 99 24 100 Nasal Cannula 2.0 03/20/16 06:00 146/70 03/20/16 04:00 97.6 03/18/16 01:36 22 Intake and Output 03/19/16 03/19/16 03/20/16 15:00 23:00 07:00 Intake Total 100 ml 822.8 ml 752.8 ml Output Total 550 ml 775 ml 625 ml Balance -450 ml 47.8 ml 127.8 ml Exam Constitutional: other (awake, alert this AM now somnulent and sleeping) Respiratory: diminished breath sounds, normal air movement Cardiovascular: irregular rhythm (a fib ) Gastrointestinal: non-tender, soft Extremities: normal pulses, other (trace edema ) Neurological: [employer] II-XII intact, lethargic Results Result Diagram: 03/20/16 0419 03/20/16 0419 Results 24 hrs Laboratory Tests Test 03/19/16 12:38 03/19/16 14:00 03/19/16 17:23 03/19/16 20:58 Bedside Glucose 187 191 188 Urine Bacteria MODERATE Urine Bilirubin NEGATIVE Urine Clarity HAZY Urine Color LT. YELLOW Urine Glucose NEGATIVE Urine Hemoglobin 1+ H Urine Ketones NEGATIVE Urine Leukocyte Esterase 2+ H Urine Microscopic RBC 2-5 Urine Microscopic WBC 5-10 Urine Nitrite NEGATIVE Urine Specific [place] 1.020 Urine Squamous Epithelial Cells FEW Urine Total Protein 1+ H Urine Transitional Epithelial Cells MODERATE Urine Urobilinogen 0.2 E.U./dL Urine Yeast MANY Urine pH 6.0 Test 03/20/16 00:42 03/20/16 01:57 03/20/16 04:19 03/20/16 05:43 Bedside Glucose 197 189 195 Anion Gap 13 Anisocytosis 1+ Basophils # Basophils % Blood Morphology Comment Blood Urea Nitrogen 46 H Calcium Level 8.5 Carbon Dioxide Level 31 Chloride Level 107 Creatinine 0.82 Differential Comment MANUAL DIFF Eosinophils # Eosinophils % Glucose Level 188 # Hematocrit 33.7 L Hemoglobin 11.2 L Hypochromasia 1+ Lymphocytes # 1.1 Lymphocytes % 7.0 L Magnesium Level 1.8 Mean Corpuscular Hemoglobin 27.5 L Mean Corpuscular Hemoglobin Concent 33.2 Mean Corpuscular Volume 82.9 Mean Platelet Volume 8.4 Monocytes # 0.5 Monocytes % 3.0 Neutrophils # 13.6 H Neutrophils % 90.0 H Nucleated Red Blood Cells # Nucleated Red Blood Cells % Platelet Count 124 L Platelet Estimate PLT APPEAR DECREASED Potassium Level 3.8 Red Blood Count 4.06 L Red Cell Distribution Width 16.6 H Sodium Level 147 H White Blood Count 15.1 H Test 03/20/16 07:00 Arterial Blood HCO3 26.1 H Arterial Blood Base Excess 3.5 H Arterial Blood Oxygen Saturation 97.3 David Test ACCEPTAB Arterial Blood Gas Puncture Site Right Radial Arterial Blood Carboxyhemoglobin 0.2 Arterial Blood Date Drawn 03/20/2016 7:20:34 AM Arterial Blood Methemoglobin 0.3 Arterial Blood pCO2 (Temp correct) 32.8 L Arterial Blood pH (Temp corrected) 7.518 H Arterial Blood pO2 (Temp corrected) 95.6 H Blood Gas A-a O2 Differential 58.1 H Blood Gas Modality NASAL CANNULA Blood Gas Notified Time 03/20/2016 8:06:11 AM Blood Gas Notified Whom JLD Blood Gas Specimen Source Blood arterial Blood Gas Temperature 37.0 FiO2 27.0 Oxyhemoglobin Percent 96.8 Total Hemoglobin 12.0 Medications Medications Current Medications Brimonidine Tartrate (Alphagan 0.2%) 1 drop Q8 BOTH EYES Last administered on 05:45; Admin Dose 1 DROP; Start 03/01/16 at 06:00 Latanoprost (Xalatan) 1 drop QHS BOTH EYES Last administered on 03/19/16 21:48 ; Admin Dose 1 DROP; Start 03/01/16 at 21:00 Mycophenolate Mofetil (Cellcept) 500 mg BID PO Last administered on 03/14/16 08:44; Admin Dose 500 MG; Start 03/01/16 at 09:00 Acetaminophen (Tylenol Tab) 650 mg Q4H PRN PO pain/fever Last administered on 03/08/16 12:49; Admin Dose 650 MG; Start 03/01/16 at 01:00 Ondansetron HCl (Zofran Inj) 4 mg Q4H PRN IV nausea Last administered on 02:23; Admin Dose 4 MG; Start 03/01/16 at 01:00 Morphine Sulfate (morphine) 2 mg Q2H PRN IV pain Last administered on 03/19/16 01:55; Admin Dose 2 MG; Start 03/01/16 at 01:00 Miscellaneous Information 1 ea NOTE XX ; Start 03/01/16 at 02:00 Glucose (Glutose) 15 gm Q15M PRN PO DECREASED GLUCOSE; Start 03/01/16 at 02:00 Glucose (Glutose) 22.5 gm Q15M PRN PO DECREASED GLUCOSE; Start 03/01/16 at 02: 00 Dextrose (D50w Syringe) 25 ml Q15M PRN IV DECREASED GLUCOSE Last administered on 03/13/16 13:36; Admin Dose 25 ML; Start 03/01/16 at 02:00 Dextrose (D50w Syringe) 50 ml Q15M PRN IV DECREASED GLUCOSE Last administered on 03/13/16 12:30; Admin Dose 50 ML; Start 03/01/16 at 02:00 Glucagon (Glucagen) 1 mg Q15M PRN IM DECREASED GLUCOSE; Start 03/01/16 at 02: 00 Glucose (Glutose) 15 gm Q15M PRN BUCCAL DECREASED GLUCOSE; Start 03/01/16 at 02:00 Diagnostic Test (Pha) (Accucheck) 1 ea 02 XX Last administered on 03/20/16 02: 38; Admin Dose 1 EA; Start 03/02/16 at 02:00 Bisacodyl (Dulcolax Supp) 10 mg DAILY PRN [place] CONSTIPATION Last administered on 03/08/16 23:47; Admin Dose 10 MG; Start 03/03/16 at 11:30 Clotrimazole (Lotrimin Cr) 1 applic BID TOP Last administered on 03/20/16 09:18 ; Admin Dose 1 APPLIC; Start 03/03/16 at 13:30 Docusate Sodium (Colace) 100 mg BID PO Last administered on 03/14/16at 08:45; Admin Dose 100 MG; Start 03/05/16 at 10:30 Sodium Chloride (Deep Sea) 1 spray Q4H PRN NASAL NASAL CONGESTION; Start 03/07 at 17:30 Ondansetron HCl (Zofran Inj) 4 mg Q4H PRN IV NAUSEA AND/OR VOMITING; Start at 23:30 Pantoprazole (Protonix Iv) 40 mg BID@06,18 IV Last administered on 03/20/16 05: 44; Admin Dose 40 MG; Start 03/10/16 at 06:00 Gabapentin (Neurontin) 300 mg Q8 GTB Last administered on 03/14/16at 14:46; Admin Dose 300 MG; Start 03/13/16 at 06:00 Methylprednisolone Sodium Succinate 30 mg 30 mg DAILY IV Last administered on 08:07; Admin Dose 30 MG; Start 03/13/16 at 09:30 Meropenem/Sodium Chloride (Merrem/NS) 100 ml @ 200 mls/hr Q12 IVPB Last administered on 03/20/16 08:09; Admin Dose 200 MLS/HR; Start 03/13/16 at 17:00 Hydralazine HCl (Apresoline) 10 mg Q6H PRN IV SBP>160 Last administered on 02:41; Admin Dose 10 MG; Start 03/14/16 at 22:00 Clonidine HCl (Catapres-Tts 2 Patch) 1 patch Q7D TRANSDERM Last administered on 03/14/16at 22:00; Admin Dose 1 PATCH; Start 03/14/16 at 22:00 Diltiazem HCl (Cardizem Iv) 10 mg Q4 IV Last administered on 03/20/16 08:07; Admin Dose 10 MG; Start 03/15/16 at 01:00 Lubiprostone 24 mcg 24 mcg BID PO ; Start 03/15/16 at 16:00 Diltiazem HCl 125 ml @ 5 mls/hr TITRATE IV Last administered on 03/17/16at 02: 43; Admin Dose 15 MLS/HR; Start 03/16/16 at 10:30 Total Parenteral Nutrition 1,000 ml @ 40 mls/hr Q24H IV Last administered on 17:19; Admin Dose 40 MLS/HR; Start 03/17/16 at 16:00 Fat Emulsion Intravenous (Liposyn Ii 20%) 250 ml @ 10.4 mls/hr Q24H IV Last administered on 03/19/16 17:18; Admin Dose 10.4 MLS/HR; Start 03/17/16 at 16:00 Insulin Glargine (Lantus) 50 unit QHS SC Last administered on 03/19/16 22:24; Admin Dose 50 UNIT; Start 03/18/16 at 21:00 Insulin Aspart (Adult SC Insulin - Moder... Q6 SC Last administered on 05:47; Admin Dose 4 UNIT; Start 03/18/16 at 06:30 Vancomycin HCl 1.5 gm/Sodium Chloride 250 ml @ 83.333 mls/ hr Q24H IVPB ; Start 03/20/16 at 12:00 Dextrose/Sodium Chloride (D5-1/2ns) 1,000 ml @ 50 mls/hr Q20H IV Last administered on 03/19/16 18:16; Admin Dose 50 MLS/HR; Start 03/19/16 at 18:00 Procedures Procedures PROCEDURE: CT Chest without contrast. CLINICAL INDICATION: Shortness of breath. Altered mental status. TECHNIQUE: CT scan of the chest without contrast was performed on a multidetector high-resolution CT scanner. Coronal and sagittal reformatted images were obtained from the axial source images. The total exam CTDI equals 18.78 mGy and the total exam DLP equals 757.78 mGy-cm. One or more of the following dose reduction techniques were used: Automated exposure control. Adjustment of the mA and/or kV according to patient size. Use of iterative reconstruction technique. COMPARISON: Chest x-ray 03/18/2016 FINDINGS: There is near complete atelectasis of the left lower lobe. There is debris / secretion distal left main lower lobe bronchus with normal aeration of the posterior basal segmental bronchi. There is small left pleural effusion. There is trace right pleural effusion with mild basilar atelectasis. Patchy ground-glass densities are seen in the upper lungs. The mediastinum is unremarkable without evidence for mass or lymphadenopathy. The vascular structures of the mediastinum are normal in course and caliber. Aortic vascular calcifications and coronary artery calcifications are present. The heart size is enlarged without evidence for pericardial thickening or effusion. The axillary regions, subpectoral regions, and supraclavicular regions are all unremarkable. Imaging obtained through the upper abdomen reveals no acute abnormality. The surrounding osseous structures are remarkable for degenerative spondylosis of the spine. No osteolytic or osteoblastic lesion is detected. IMPRESSION: 1. Near complete atelectasis of the left lower lobe with debris / secretion in the distal left lower lobe bronchus. Normal aeration of the posterolateral subsegmental bronchi. Consider bronchoscopy for further evaluation. 2. Small left and trace right pleural effusions with mild right basilar atelectasis. 3. Small focal areas of ground-glass densities in the upper lungs are nonspecific and could represent infectious/inflammatory changes. 4. Cardiomegaly. 5. Aortic and coronary artery calcifications. RPTAT: BB .Drew Tejeda MD, MD Date Time Electronically viewed and signed by .Drew Tejeda MD, on 03/19/2016 12:34 PROCEDURE: CT Brain without contrast. CLINICAL INDICATION: Altered mental status. TECHNIQUE: A CT of the brain was performed on a GE 64-slice CT scanner utilizing axial imaging from the skull base through the vertex without intravenous contrast. Multiplanar reformatted images were made. One or more the following dose reduction techniques were utilized: Automated exposure control, adjustment of the mA and /or kV according to patient size, or use of iterative reconstruction technique. The CTDIvol is 42.8 and 42.8 mGy and the DLP is 990.3 mGycm. Images had to be repeated due to patient motion. COMPARISON: None. FINDINGS: Images are degraded by patient motion, though the study is of gross diagnostic quality. There is no intracranial hemorrhage, mass effect, or midline shift. No extra-axial fluid collection is seen. There is relative calcific density projecting over the right cerebellum, which may be vascular in nature, though is suboptimally evaluated due to the extensive patient motion. Mild to moderate atrophy is identified with compensatory ventricular and sulcal enlargement. There is mild decreased attenuation in the periventricular and deep white matter , compatible with microvascular ischemic disease. A chronic lacunar infarct is seen in the left centrum semiovale and right thalamus. The sorto white matter differentiation is well preserved with no acute infarct detected. The osseous structures and visualized paranasal sinuses are unremarkable. IMPRESSION: 1. No no definite evidence of acute intracranial pathology. There is a calcific density projecting over the superior cerebellum along the tentorium. This is suboptimally evaluated due to extensive patient motion. Consider follow -up once the patient is able to walk.. 2. Mild to moderate diffuse atrophy. 3. Mild microvascular ischemic disease. Small chronic lacunar infarcts are seen in the right thalamus and left centrum semiovale. RPTAT: PP .Mary Kendall MD, MD Date Time Electronically viewed and signed by .Mary Kendall MD, MD on 03/19/2016 12:14 AISHA TINEO Mar 20, 2016 10:48
[2016-03-20] MEDS ORDERED: MAGNESIUM SULFATE 2 GM/50 ML 50 ML IVPB ONE (12:30)
--- NOTE | 2016-03-20 12:31 | PN ---
DATE: 03/20/2016 SUBJECTIVE: No events overnight. The patient is lying comfortably in bed. No fevers. No shortnes s of breath at rest. WBC today 15.1 with H and H 11.2 and 33.7, platelets 124, neutrophils 90, no b ands. BUN 46, creatinine 0.82. ANTIMICROBIALS: The patient is on: 1. IV vancomycin 2. Meropenem. INDWELLINGS: Tong catheter, PICC line placed on March 15. DIAGNOSTICS: Chest CT yesterday revealed near complete atelectasis of the left lower lobe with debr is and creation in the distal left lower lobe bronchus, small left and trace right pleural effusions with mild right basilar atelectasis. PHYSICAL EXAMINATION: GENERAL: Obese, well-developed, fragile, elderly woman who is lying comfortably in bed. HEENT: Head atraumatic, normocephalic. Sclerae anicteric. Buccal mucosa dry. NECK: Supple, trachea midline. CHEST: Rise symmetrical. Breath sounds diminished to bases. HEART: S1, S2. ABDOMEN: Soft, bowel tones present. EXTREMITIES: Without cyanosis. ASSESSMENT: 1. Sepsis. 2. Acute respiratory failure secondary to secretion retention and possible ongoing aspiration. 3. Chronic obstructive pulmonary disease exacerbation with acute bronchitis. 4. Urinary tract infection. 5. Acute kidney injury, improved. 6. Morbid obesity. 7. Dysphagia. 8. History of pemphigoid disease status post Bactrim, on chronic steroids. 9. Paroxysmal atrial fibrillation. PLAN: The patient remains stable, comfortable on nasal cannula, covered with appropriate antimicrob ials. Renal function improving. We will continue her on current regimen. Dictated By: LEÓN PAK STONE CRUSHER OPERATOR for MIMI MOSER/DARIO Conf#: [id number] DID#: [id number]
[2016-03-20] MEDS ORDERED: NA BICARBONATE 8.4% 50 ML SYG ONE (13:31)
--- NOTE | 2016-03-20 13:32 | CONS ---
Date/Time of Note Date/Time of Note DATE: 03/20/16 TIME: 13:28 Assessment/Plan Assessment/Plan Additional Assessment/Plan Atrial fibrillation Respiratory failure Preserved ejection fraction Possible aspiration pneumonia Hypertension Anemia Hypernatremia -Overall heart rate trend and blood pressure remains controlled on current dose of Cardizem and hydralazine. Patient not on by mouth medications because of aspiration. Anticoagulation on hold secondary to possible GI bleed. No new cardiac orders at the current time. Consultation Date/Type/Reason Admit Date/Time Feb 29, 2016 at 18:54 Initial Consult Date 03/17/16 Type of Consultation: cv Referring Provider: KANCHAN LEONARD MD 24 HR Interval Summary Free Text/Dictation Patient seen and examined, caregiver at bedside Exam/Review of Systems Vital Signs Vitals Vital Signs Date Time Temp Pulse Resp B/P Pulse Ox O2 Delivery O2 Flow Rate FiO2 03/20/16 12:00 129 03/20/16 08:30 24 100 Nasal Cannula 2.0 03/20/16 06:00 146/70 03/20/16 04:00 97.6 03/18/16 01:36 22 Intake and Output 03/19/16 03/19/16 03/20/16 15:00 23:00 07:00 Intake Total 100 ml 822.8 ml 752.8 ml Output Total 550 ml 775 ml 625 ml Balance -450 ml 47.8 ml 127.8 ml Exam Awake, no apparent distress Head: normocephalic Neck: supple Respiratory: other (course breath sounds bilaterally, no wheezing) Cardiovascular: irregular rhythm, other (S1 and S2 heard) Gastrointestinal: bowel sounds, non-tender, soft Extremities: edema Results Result Diagram: 03/20/16 0419 03/20/16 0419 Results 24 hrs Laboratory Tests Test 03/19/16 14:00 03/19/16 17:23 03/19/16 20:58 03/20/16 00:42 Urine Bacteria MODERATE Urine Bilirubin NEGATIVE Urine Clarity HAZY Urine Color LT. YELLOW Urine Glucose NEGATIVE Urine Hemoglobin 1+ H Urine Ketones NEGATIVE Urine Leukocyte Esterase 2+ H Urine Microscopic RBC 2-5 Urine Microscopic WBC 5-10 Urine Nitrite NEGATIVE Urine Specific [place] 1.020 Urine Squamous Epithelial Cells FEW Urine Total Protein 1+ H Urine Transitional Epithelial Cells MODERATE Urine Urobilinogen 0.2 E.U./dL Urine Yeast MANY Urine pH 6.0 Bedside Glucose 191 188 197 Test 03/20/16 01:57 03/20/16 04:19 03/20/16 05:43 03/20/16 07:00 Bedside Glucose 189 195 Anion Gap 13 Anisocytosis 1+ Basophils # Basophils % Blood Morphology Comment Blood Urea Nitrogen 46 H Calcium Level 8.5 Carbon Dioxide Level 31 Chloride Level 107 Creatinine 0.82 Differential Comment MANUAL DIFF Eosinophils # Eosinophils % Glucose Level 188 # Hematocrit 33.7 L Hemoglobin 11.2 L Hypochromasia 1+ Lymphocytes # 1.1 Lymphocytes % 7.0 L Magnesium Level 1.8 Mean Corpuscular Hemoglobin 27.5 L Mean Corpuscular Hemoglobin Concent 33.2 Mean Corpuscular Volume 82.9 Mean Platelet Volume 8.4 Monocytes # 0.5 Monocytes % 3.0 Neutrophils # 13.6 H Neutrophils % 90.0 H Nucleated Red Blood Cells # Nucleated Red Blood Cells % Platelet Count 124 L Platelet Estimate PLT APPEAR DECREASED Potassium Level 3.8 Red Blood Count 4.06 L Red Cell Distribution Width 16.6 H Sodium Level 147 H White Blood Count 15.1 H Arterial Blood HCO3 26.1 H Arterial Blood Base Excess 3.5 H Arterial Blood Oxygen Saturation 97.3 David Test ACCEPTAB Arterial Blood Gas Puncture Site Right Radial Arterial Blood Carboxyhemoglobin 0.2 Arterial Blood Date Drawn 03/20/2016 7:20:34 AM Arterial Blood Methemoglobin 0.3 Arterial Blood pCO2 (Temp correct) 32.8 L Arterial Blood pH (Temp corrected) 7.518 H Arterial Blood pO2 (Temp corrected) 95.6 H Blood Gas A-a O2 Differential 58.1 H Blood Gas Modality NASAL CANNULA Blood Gas Notified Time 03/20/2016 8:06:11 AM Blood Gas Notified Whom JLD Blood Gas Specimen Source Blood arterial Blood Gas Temperature 37.0 FiO2 27.0 Oxyhemoglobin Percent 96.8 Total Hemoglobin 12.0 Test 03/20/16 11:29 Bedside Glucose 199 Medications Medications Current Medications Brimonidine Tartrate (Alphagan 0.2%) 1 drop Q8 BOTH EYES Last administered on 05:45; Admin Dose 1 DROP; Start 03/01/16 at 06:00 Latanoprost (Xalatan) 1 drop QHS BOTH EYES Last administered on 03/19/16 21:48 ; Admin Dose 1 DROP; Start 03/01/16 at 21:00 Mycophenolate Mofetil (Cellcept) 500 mg BID PO Last administered on 03/14/16 08:44; Admin Dose 500 MG; Start 03/01/16 at 09:00 Acetaminophen (Tylenol Tab) 650 mg Q4H PRN PO pain/fever Last administered on 03/08/16 12:49; Admin Dose 650 MG; Start 03/01/16 at 01:00 Ondansetron HCl (Zofran Inj) 4 mg Q4H PRN IV nausea Last administered on at 02:23; Admin Dose 4 MG; Start 03/01/16 at 01:00 Morphine Sulfate (morphine) 2 mg Q2H PRN IV pain Last administered on 03/19/16 01:55; Admin Dose 2 MG; Start 03/01/16 at 01:00 Miscellaneous Information 1 ea NOTE XX ; Start 03/01/16 at 02:00 Glucose (Glutose) 15 gm Q15M PRN PO DECREASED GLUCOSE; Start 03/01/16 at 02:00 Glucose (Glutose) 22.5 gm Q15M PRN PO DECREASED GLUCOSE; Start 03/01/16 at 02: 00 Dextrose (D50w Syringe) 25 ml Q15M PRN IV DECREASED GLUCOSE Last administered on 03/13/16at 13:36; Admin Dose 25 ML; Start 03/01/16 at 02:00 Dextrose (D50w Syringe) 50 ml Q15M PRN IV DECREASED GLUCOSE Last administered on 03/13/16 12:30; Admin Dose 50 ML; Start 03/01/16 at 02:00 Glucagon (Glucagen) 1 mg Q15M PRN IM DECREASED GLUCOSE; Start 03/01/16 at 02: 00 Glucose (Glutose) 15 gm Q15M PRN BUCCAL DECREASED GLUCOSE; Start 03/01/16 at 02:00 Diagnostic Test (Pha) (Accucheck) 1 ea 02 XX Last administered on 03/20/16 02: 38; Admin Dose 1 EA; Start 03/02/16 at 02:00 Bisacodyl (Dulcolax Supp) 10 mg DAILY PRN [place] CONSTIPATION Last administered on 03/08/16at 23:47; Admin Dose 10 MG; Start 03/03/16 at 11:30 Clotrimazole (Lotrimin Cr) 1 applic BID TOP Last administered on 03/20/16 09:18 ; Admin Dose 1 APPLIC; Start 03/03/16 at 13:30 Docusate Sodium (Colace) 100 mg BID PO Last administered on 03/14/16at 08:45; Admin Dose 100 MG; Start 03/05/16 at 10:30 Sodium Chloride (Deep Sea) 1 spray Q4H PRN NASAL NASAL CONGESTION; Start 03/07 at 17:30 Ondansetron HCl (Zofran Inj) 4 mg Q4H PRN IV NAUSEA AND/OR VOMITING; Start at 23:30 Pantoprazole (Protonix Iv) 40 mg BID@06,18 IV Last administered on 03/20/16 05: 44; Admin Dose 40 MG; Start 03/10/16 at 06:00 Gabapentin (Neurontin) 300 mg Q8 GTB Last administered on 03/14/16at 14:46; Admin Dose 300 MG; Start 03/13/16 at 06:00 Methylprednisolone Sodium Succinate 30 mg 30 mg DAILY IV Last administered on 08:07; Admin Dose 30 MG; Start 03/13/16 at 09:30 Meropenem/Sodium Chloride (Merrem/NS) 100 ml @ 200 mls/hr Q12 IVPB Last administered on 03/20/16 08:09; Admin Dose 200 MLS/HR; Start 03/13/16 at 17:00 Hydralazine HCl (Apresoline) 10 mg Q6H PRN IV SBP>160 Last administered on 02:41; Admin Dose 10 MG; Start 03/14/16 at 22:00 Clonidine HCl (Catapres-Tts 2 Patch) 1 patch Q7D TRANSDERM Last administered on 03/14/16at 22:00; Admin Dose 1 PATCH; Start 03/14/16 at 22:00 Diltiazem HCl (Cardizem Iv) 10 mg Q4 IV Last administered on 03/20/16 08:07; Admin Dose 10 MG; Start 03/15/16 at 01:00 Lubiprostone 24 mcg 24 mcg BID PO ; Start 03/15/16 at 16:00 Diltiazem HCl 125 ml @ 5 mls/hr TITRATE IV Last administered on 03/17/16at 02: 43; Admin Dose 15 MLS/HR; Start 03/16/16 at 10:30 Total Parenteral Nutrition 1,000 ml @ 40 mls/hr Q24H IV Last administered on 17:19; Admin Dose 40 MLS/HR; Start 03/17/16 at 16:00 Fat Emulsion Intravenous (Liposyn Ii 20%) 250 ml @ 10.4 mls/hr Q24H IV Last administered on 03/19/16 17:18; Admin Dose 10.4 MLS/HR; Start 03/17/16 at 16:00 Insulin Glargine (Lantus) 50 unit QHS SC Last administered on 03/19/16 22:24; Admin Dose 50 UNIT; Start 03/18/16 at 21:00 Insulin Aspart (Adult SC Insulin - Moder... Q6 SC Last administered on 11:37; Admin Dose 4 UNIT; Start 03/18/16 at 06:30 Vancomycin HCl 1.5 gm/Sodium Chloride 250 ml @ 83.333 mls/ hr Q24H IVPB Last administered on 03/20/16 11:22; Admin Dose 83.333 MLS/HR; Start 03/20/16 at 12:00 Dextrose/Sodium Chloride 1,000 ml @ 50 mls/hr Q20H IV Last administered on 03/19 18:16; Admin Dose 50 MLS/HR; Start 03/19/16 at 18:00 Magnesium Sulfate (Magnesium Sulfate 2 Gm/50 ml) 50 ml @ 25 mls/hr ONCE ONCE IVPB ; Start 03/20/16 at 12:30; Stop 03/20/16 at 14:29 Simone Carmen DO Mar 20, 2016 13:32
--- NOTE | 2016-03-20 13:51 | RADRPT ---
PROCEDURE: MR Brain noncontrast. CLINICAL INDICATION: Encephalopathy. Sepsis. TECHNIQUE: Multiplanar multisequence noncontrast MRI of the brain was performed. COMPARISON: Noncontrast CT of the head from March 19, 2016. FINDINGS: Evaluation is moderately limited due to motion degradation. There is mild to moderate generalized cerebral volume loss. There is a 2.2 x 1.1 cm mildly T1 hyperintense lesion inseparable within the superior cerebellar cis tern in which evaluation is limited due to motion degradation. There are associated calcifications n oted on head CT. This demonstrates restricted diffusion. There is a small chronic right cerebellar infarction. There are few bilateral subcortical T2 hyperintensities suggesting chronic microvascular ischemic c hanges. There are chronic left posterior centrum semiovale lacunar infarctions. There is a chronic r ight thalamic and left basal ganglia lacunar infarction. There is no acute infarction. There is no intracranial hemorrhage or extra-axial fluid collection. There is no midline shift. The brainstem is within normal limits. The normal intracranial, intravascular flow voids are preserved. There is a moderate right maxillary sinus mucous retention cyst/polyp. The orbits are grossly unremarkable. There is no destructive osseous lesion. There are extensive bilateral mastoid air cell effusions. IMPRESSION: Evaluation is moderately limited due to motion degradation. 1. No acute infarction or intracranial hemorrhage. 2. There is a 2.2 x 1.1 cm mildly T1 hyperintense lesion with associated restricted effusion within the superior cerebellar cistern suggestive of an epidermoid cyst. An atypical meningioma is felt to be less likely but not excluded. 3. Minimal chronic microvascular ischemic changes. 4. Mild to moderate generalized cerebral volume loss. 5. Chronic left posterior centrum semiovale, right thalamic, and left basal ganglia lacunar infarct ions. 6. Small chronic right cerebellar infarction. 7. Severe extensive bilateral mastoid air cell effusions. Further findings as detailed above. RPTAT: PP .Bi Belcher MD, Date Time Electronically viewed and signed by .Bi Belcher MD, MD on 03/20/2016 13:50 .F/
[2016-03-20] MEDS: DEXTROSE 5%-0.45% NACL 1,000 ML IV SCH (14:00)
[2016-03-20] MEDS: FAT EMULSION 20% 250 ML IV SCH (16:47)
[2016-03-20] MEDS: TPN 1,000 ML IV SCH (16:47)
--- NOTE | 2016-03-20 20:58 | PN ---
Date/Time of Note Date/Time of Note DATE: 03/20/16 TIME: 20:58 Assessment/Plan VTE Prophylaxis VTE Prophylaxis Intervention: contraindicated Lines/Catheters IV Catheter Type (from Nrs): PICC Line Central line still needed: Yes Urinary Cath still in place: Yes Reason Cath still needed: urinary retention Assessment/Plan Assessment/Plan Assessment and Plan: 1. Heme-positive anemia: EGD canceled 03-16-16 due to A. fib. - transfuse PRN hgb < 8 - if necessary for EGD and PEG placement, cardiology rate the endoscopic procedure as an intermediate risk 2. Tachycardia with atrial fibrillation. - cardiac stabilization 3. Constipation: resolving 4. Acute Respiratory failure, secondary to bronchitis/URI/pneumonia. Reported history of asthma. Immunosuppressed with CellCept chronically - management per primary and other consultants 5. CKD: Now roughly back to baseline. 6. Poor nutrition/protein calorie malnutrition - continue TPN - awaiting swallow eval - Consider PEG Subjective 24 Hr Interval Summary Free Text/Dictation Course reviewed with nursing staff Remains obtunded Situation discussed with patient's son I recommended consideration of PEG placement at the same time as EGD The patient's son (decision-maker) agreeable Exam/Review of Systems Vital Signs Vitals Vital Signs Date Time Temp Pulse Resp B/P Pulse Ox O2 Delivery O2 Flow Rate FiO2 03/20/16 19:53 1.0 03/20/16 19:53 92 24 98 Nasal Cannula 03/20/16 18:00 164/87 03/20/16 16:00 98.4 03/18/16 01:36 22 Intake and Output 03/19/16 03/19/16 03/20/16 14:59 22:59 06:59 Intake Total 100 ml 722.4 ml 853.2 ml Output Total 550 ml 675 ml 725 ml Balance -450 ml 47.4 ml 128.2 ml Exam Constitutional: non-verbal, other (Confused) Head: normocephalic Neck: supple Respiratory: crackles/rales (Basis), diminished breath sounds Cardiovascular: irregular rhythm Gastrointestinal: bowel sounds, distended, soft, No ascites, No mass, No tender Results Result Diagram: 03/20/16 0419 03/20/16 0419 Results 24 hrs Laboratory Tests Test 03/20/16 00:42 03/20/16 01:57 03/20/16 04:19 03/20/16 05:43 Bedside Glucose 197 189 195 Anion Gap 13 Anisocytosis 1+ Basophils # Basophils % Blood Morphology Comment Blood Urea Nitrogen 46 H Calcium Level 8.5 Carbon Dioxide Level 31 Chloride Level 107 Creatinine 0.82 Differential Comment MANUAL DIFF Eosinophils # Eosinophils % Glucose Level 188 # Hematocrit 33.7 L Hemoglobin 11.2 L Hypochromasia 1+ Lymphocytes # 1.1 Lymphocytes % 7.0 L Magnesium Level 1.8 Mean Corpuscular Hemoglobin 27.5 L Mean Corpuscular Hemoglobin Concent 33.2 Mean Corpuscular Volume 82.9 Mean Platelet Volume 8.4 Monocytes # 0.5 Monocytes % 3.0 Neutrophils # 13.6 H Neutrophils % 90.0 H Nucleated Red Blood Cells # Nucleated Red Blood Cells % Platelet Count 124 L Platelet Estimate PLT APPEAR DECREASED Potassium Level 3.8 Red Blood Count 4.06 L Red Cell Distribution Width 16.6 H Sodium Level 147 H White Blood Count 15.1 H Test 03/20/16 07:00 03/20/16 11:29 03/20/16 16:49 Arterial Blood HCO3 26.1 H Arterial Blood Base Excess 3.5 H Arterial Blood Oxygen Saturation 97.3 David Test ACCEPTAB Arterial Blood Gas Puncture Site Right Radial Arterial Blood Carboxyhemoglobin 0.2 Arterial Blood Date Drawn 03/20/2016 7:20:34 AM Arterial Blood Methemoglobin 0.3 Arterial Blood pCO2 (Temp correct) 32.8 L Arterial Blood pH (Temp corrected) 7.518 H Arterial Blood pO2 (Temp corrected) 95.6 H Blood Gas A-a O2 Differential 58.1 H Blood Gas Modality NASAL CANNULA Blood Gas Notified Time 03/20/2016 8:06:11 AM Blood Gas Notified Whom JLD Blood Gas Specimen Source Blood arterial Blood Gas Temperature 37.0 FiO2 27.0 Oxyhemoglobin Percent 96.8 Total Hemoglobin 12.0 Bedside Glucose 199 216 Medications Medications Current Medications Brimonidine Tartrate (Alphagan 0.2%) 1 drop Q8 BOTH EYES Last administered on 14:00; Admin Dose 1 DROP; Start 03/01/16 at 06:00 Latanoprost (Xalatan) 1 drop QHS BOTH EYES Last administered on 03/19/16 21:48 ; Admin Dose 1 DROP; Start 03/01/16 at 21:00 Mycophenolate Mofetil (Cellcept) 500 mg BID PO Last administered on 03/14/16 08:44; Admin Dose 500 MG; Start 03/01/16 at 09:00 Acetaminophen (Tylenol Tab) 650 mg Q4H PRN PO pain/fever Last administered on 03/08/16 12:49; Admin Dose 650 MG; Start 03/01/16 at 01:00 Morphine Sulfate (morphine) 2 mg Q2H PRN IV pain Last administered on 03/19/16 01:55; Admin Dose 2 MG; Start 03/01/16 at 01:00 Miscellaneous Information 1 ea NOTE XX ; Start 03/01/16 at 02:00 Glucose (Glutose) 15 gm Q15M PRN PO DECREASED GLUCOSE; Start 03/01/16 at 02:00 Glucose (Glutose) 22.5 gm Q15M PRN PO DECREASED GLUCOSE; Start 03/01/16 at 02: 00 Dextrose (D50w Syringe) 25 ml Q15M PRN IV DECREASED GLUCOSE Last administered on 03/13/16at 13:36; Admin Dose 25 ML; Start 03/01/16 at 02:00 Dextrose (D50w Syringe) 50 ml Q15M PRN IV DECREASED GLUCOSE Last administered on 03/13/16 12:30; Admin Dose 50 ML; Start 03/01/16 at 02:00 Glucagon (Glucagen) 1 mg Q15M PRN IM DECREASED GLUCOSE; Start 03/01/16 at 02: 00 Glucose (Glutose) 15 gm Q15M PRN BUCCAL DECREASED GLUCOSE; Start 03/01/16 at 02:00 Diagnostic Test (Pha) (Accucheck) 1 ea 02 XX Last administered on 03/20/16 02: 38; Admin Dose 1 EA; Start 03/02/16 at 02:00 Bisacodyl (Dulcolax Supp) 10 mg DAILY PRN [place] CONSTIPATION Last administered on 03/08/16 23:47; Admin Dose 10 MG; Start 03/03/16 at 11:30 Clotrimazole (Lotrimin Cr) 1 applic BID TOP Last administered on 03/20/16 09:18 ; Admin Dose 1 APPLIC; Start 03/03/16 at 13:30 Docusate Sodium (Colace) 100 mg BID PO Last administered on 12/28/16at 08:45; Admin Dose 100 MG; Start 03/05/16 at 10:30 Ondansetron HCl (Zofran Inj) 4 mg Q4H PRN IV NAUSEA AND/OR VOMITING; Start at 23:30 Pantoprazole (Protonix Iv) 40 mg BID@06,18 IV Last administered on 03/20/16 18: 10; Admin Dose 40 MG; Start 03/10/16 at 06:00 Gabapentin (Neurontin) 300 mg Q8 GTB Last administered on 03/20/16 14:00; Admin Dose 300 MG; Start 03/13/16 at 06:00 Methylprednisolone Sodium Succinate 30 mg 30 mg DAILY IV Last administered on 08:07; Admin Dose 30 MG; Start 03/13/16 at 09:30 Meropenem/Sodium Chloride (Merrem/NS) 100 ml @ 200 mls/hr Q12 IVPB Last administered on 03/20/16 08:09; Admin Dose 200 MLS/HR; Start 03/13/16 at 17:00 Hydralazine HCl (Apresoline) 10 mg Q6H PRN IV SBP>160 Last administered on 02:41; Admin Dose 10 MG; Start 03/14/16 at 22:00 Clonidine HCl (Catapres-Tts 2 Patch) 1 patch Q7D TRANSDERM Last administered on 03/14/16at 22:00; Admin Dose 1 PATCH; Start 03/14/16 at 22:00 Diltiazem HCl (Cardizem Iv) 10 mg Q4 IV Last administered on 03/20/16 18:10; Admin Dose 10 MG; Start 03/15/16 at 01:00 Lubiprostone 24 mcg 24 mcg BID PO ; Start 03/15/16 at 16:00 Diltiazem HCl 125 ml @ 5 mls/hr TITRATE IV Last administered on 03/17/16at 02: 43; Admin Dose 15 MLS/HR; Start 03/16/16 at 10:30 Total Parenteral Nutrition 1,000 ml @ 40 mls/hr Q24H IV Last administered on 16:47; Admin Dose 40 MLS/HR; Start 03/17/16 at 16:00 Fat Emulsion Intravenous (Liposyn Ii 20%) 250 ml @ 10.4 mls/hr Q24H IV Last administered on 03/20/16 16:47; Admin Dose 10.4 MLS/HR; Start 03/17/16 at 16:00 Insulin Glargine (Lantus) 50 unit QHS SC Last administered on 03/19/16 22:24; Admin Dose 50 UNIT; Start 03/18/16 at 21:00 Insulin Aspart (Adult SC Insulin - Moder... Q6 SC Last administered on 16:53; Admin Dose 4 UNIT; Start 03/18/16 at 06:30 Vancomycin HCl 1.5 gm/Sodium Chloride 250 ml @ 83.333 mls/ hr Q24H IVPB Last administered on 03/20/16 11:22; Admin Dose 83.333 MLS/HR; Start 03/20/16 at 12:00 Dextrose/Sodium Chloride (D5-1/2ns) 1,000 ml @ 50 mls/hr Q20H IV Last administered on 03/20/16 14:00; Admin Dose 50 MLS/HR; Start 03/19/16 at 18:00 VERÓNICA YBARRA MD Mar 20, 2016 20:58
[2016-03-20] MEDS ORDERED: CEFAZOLIN 1 GM/50 ML (PMX) 50 ML IVPB ONE (21:00)
[2016-03-20] MEDS: LATANOPROST 0.005% 2.5 ML OPH BOTH EYES SCH (21:22)
[2016-03-20] MEDS: INSULIN GLARGINE [LANtus] 3 ML PEN SC SCH (21:33)
[2016-03-21] VITALS (25 sets, daily range): BP systolic 96–172; BP diastolic 43–87; PULSE 64–124; RESP 11–38
[2016-03-21] MEDS: DILTIAZEM 25 MG INJ IV SCH ×6 (00:31→21:56)
[2016-03-21] MEDS: DEXTROSE 5%-0.45% NACL 1,000 ML IV SCH (00:33)
[2016-03-21] MEDS: Insulin NOVOLOG SS MODERATE Algorithm(NPO/TPN/ENTERAL FEEDS) SC SCH ×5 (01:26→23:43)
[2016-03-21] MEDS: hydrALAzine 20 MG INJ IV PRN (01:28)
[2016-03-21] MEDS: ALBUTEROL/IPRATROPIUM (NEB) 3 ML AMP HHN SCH ×4 (02:12→19:49)
[2016-03-21] MEDS: ACCUCHECK AT 2AM (Patients on SS coverage) XX SCH (02:40)
[2016-03-21] MEDS: PANTOPRAZOLE 40 MG INJ IV SCH ×2 (05:40→17:24)
[2016-03-21] MEDS: BRIMONIDINE 0.2% 5 ML BTL BOTH EYES SCH ×3 (05:40→21:58)
[2016-03-21] MEDS: GABAPENTIN 300 MG CAP GTB SCH ×3 (05:41→20:19)
[2016-03-21] MEDS ORDERED: FENTAnyl 50 MCG/ML VIAL ONE (07:00)
[2016-03-21] MEDS ORDERED: MIDAZOLAM 1 MG/ML 2 ML INJ ONE (07:00)
[2016-03-21 07:36] LABS: BASOPHIL # 0.3 10^3/ul (0.0-0.1); BASOPHILS % 2.4 % (0.0-2.0); EOSINOPHILS % 0.3 % (0.0-7.0); HEMATOCRIT 34.1 % (37.0-47.0); HEMOGLOBIN 11.1 g/dl (12.0-16.0); LYMPHOCYTES # 0.8 10^3/ul (0.8-2.9); LYMPHOCYTES % 5.9 % (15.0-51.0); MEAN CORPUSCULAR HEMOGLOBIN 27.3 pg (29.0-33.0); MEAN CORPUSCULAR HGB CONC 32.6 g/dl (32.0-37.0); MEAN CORPUSCULAR VOLUME 83.6 fl (82.0-101.0); MEAN PLATELET VOLUME 9.1 fl (7.4-10.4); MONOCYTE # 0.4 10^3/ul (0.3-0.9); MONOCYTES % 3.2 % (0.0-11.0); NEUTROPHIL # 11.8 10^3/ul (1.6-7.5); NEUTROPHILS % 88.2 % (39.0-77.0); PLATELET COUNT 93 10^3/UL (140-440); RED BLOOD COUNT 4.07 10^6/ul (4.20-5.40); RED CELL DISTRIBUTION WIDTH 16.8 % (11.5-14.5); UNCORRECTED WBC 13.4 10^3/ul (4.8-10.8); WHITE BLOOD COUNT 13.4 10^3/ul (4.8-10.8)
[2016-03-21 07:41] LABS: CONDITION 1; LH ANALYZER COMMENTS 1
[2016-03-21 07:45] LABS: POTASSIUM 3.9 mmol/L (3.5-5.1)
[2016-03-21 07:48] LABS: CREATININE 0.68 mg/dl (0.44-1.00)
[2016-03-21 07:49] LABS: CALCIUM 7.8 mg/dl (8.4-10.2); PHOSPHORUS 3.7 mg/dl (2.5-4.9)
[2016-03-21] MEDS: LUBIPROSTONE 24 MCG CAP PO SCH ×2 (09:00→20:18)
[2016-03-21] MEDS: DOCUSATE SODIUM 100 MG CAP PO SCH ×2 (09:00→20:19)
[2016-03-21] MEDS: MYCOPHENOLATE 250 MG CAP PO SCH ×2 (09:00→20:19)
[2016-03-21] MEDS: METHYLPREDNISOLONE 40 MG INJ IV SCH (09:09)
[2016-03-21] MEDS: MEROPENEM 500 MG in SOD CHLORIDE 0.9% 100 ML IVPB SCH ×2 (09:09→21:56)
[2016-03-21] MEDS: CLOTRIMAZOLE 1% 30 GM CR TOP SCH ×2 (09:10→21:58)
[2016-03-21] MEDS: ALTEPLASE (CATHFLO) 2 MG INJ CATHETER ONE ×2 (09:30→10:43)
[2016-03-21] MEDS ORDERED: ALTEPLASE (CATHFLO) 2 MG INJ CATHETER PRN (09:30)
--- NOTE | 2016-03-21 09:34 | PN ---
Date/Time of Note Date/Time of Note DATE: 03/21/16 TIME: 09:08 Assessment/Plan VTE Prophylaxis VTE Prophylaxis Intervention: SCD's Lines/Catheters IV Catheter Type (from Nrsg): PICC Line Central line still needed: Yes (for IV access ) Urinary Cath still in place: Yes Reason Cath still needed: other (indicate) (monitor UOP) Assessment/Plan Assessment/Plan 85 yo female with: 1. Respiratory distress and insufficiency, improved but patient sleepy and altered this past few days, CT head negative Fentanyl patch removed and Ativan discontinued per Neurology and absolutely appropriately so. WBC coming down and respiratory status stable on 2L NC and still on steroids and IV abx, patient with known immunosuppression Still on Aspiration protocol, MRI Brain with no acute findings Continue meropenem per ID and also on Vancomycin CT chest stable. She failed bedside speech swallow and plans are for EGD with PEG tube placement today . 2. Constipation improved overall, likely secondary to her hyperglycemia and Fentanyl patch use. KUB showed colon full of fecal matter, and CT abd/pelvis showed no evidence of abdominopelvic mass, lymphadenopathy or focal acute inflammatory pathology. FOB was positive but Hb now stable. Again no BM for a few days and enema done last night again with only water coming out ... EGD and PEG tube placement today 3. Atrial fibrillation with episodes of RVR, better controlled now Renal function back to normal now Hold Eliquis given ? GI bleeding and once EGD and source r/o will recommend to resume K and Mag stable 4. JUAN with known CKD: Renal function back to baseline and even more improved Uremia resolved. 5. Anemia, acute: s/p 2 units pRBC on 03/16, Hb up to 11 today and has remained stable over past few days, no acute GIB noted EGD today Platelets down to 93 today, monitor closely 6. Diabetes Mellitus: TPN being adjusted as BG up and also was noted to be hypernatremic BG better and Na back to baseline Monitor electrolytes while on TPN and adjusting Lantus and SSI accordingly. 7. Hypertension. Continue Clonidine, Norvasc, and Cardizem and titrate accordingly 8. Pemphigoid disease per family: on Cellcept. 9. Chronic Pain: on fentanyl patch, I have approached the family to d/c fentanyl patch as probably part of cause of bowel issues but they have been reluctant/resistant. Given now issues with MS, agree with Neurology to just d/c if need be we can resume at lower dose of 25 or 50 mcg 10 Nutrition: NPO now, PEG today, will d/c TPN once tolerating tube feedings. Prophylaxis: Holding Eliquis for now due to current concerns about GI bleeding. SCDs. Protonix for GI prophylaxis Disposition: Case d/w with care team in ICU, and discussed last night with Son Harshad Sarabia MD [phone] Subjective 24 Hr Interval Summary Free Text/Dictation Patient awake and stable, failed swallow eval with Speech therapy this AM In A fib with PVCs Labs stable and WBC trending down EGD and PEG today with Dr Zuniga Exam/Review of Systems Vital Signs Vitals Vital Signs Date Time Temp Pulse Resp B/P Pulse Ox O2 Delivery O2 Flow Rate FiO2 03/21/16 08:17 88 32 100 Nasal Cannula 1.0 03/21/16 07:00 151/76 03/21/16 04:00 97.3 03/18/16 01:36 22 Intake and Output 03/20/16 03/20/16 03/21/16 15:00 23:00 07:00 Intake Total 1150 ml 902.0 ml 803.2 ml Output Total 735 ml 475 ml 355 ml Balance 415 ml 427.0 ml 448.2 ml Exam Constitutional: alert, frail, obese, other Respiratory: diminished breath sounds (bases ), normal air movement, other ( some expiratory wheezes ) Cardiovascular: irregular rhythm (a fib ) Gastrointestinal: non-tender, soft Musculoskeletal: nl extremities to inspection Extremities: normal pulses, other (no edema, clubbing or cyanosis ) Neurological: OUTPATIENT CODER II-XII intact, other (generalised weakness ) Results Result Diagram: 03/21/1625 03/21/16 0725 Results 24 hrs Laboratory Tests Test 03/20/16 11:29 03/20/16 16:49 03/20/16 21:31 03/21/16 00:29 Bedside Glucose 199 216 254 H 262 H Test 03/21/16 02:35 03/21/16 05:39 03/21/16 07:25 Bedside Glucose 222 H 205 Anion Gap 17 H Basophils # 0.3 H Basophils % 2.4 H Blood Morphology Comment Blood Urea Nitrogen 45 H Calcium Level 7.8 L Carbon Dioxide Level 26 Chloride Level 105 Creatinine 0.68 Eosinophils # 0.0 Eosinophils % 0.3 Glucose Level 168 Hematocrit 34.1 L Hemoglobin 11.1 L Lymphocytes # 0.8 Lymphocytes % 5.9 L Magnesium Level 2.0 Mean Corpuscular Hemoglobin 27.3 L Mean Corpuscular Hemoglobin Concent 32.6 Mean Corpuscular Volume 83.6 Mean Platelet Volume 9.1 Monocytes # 0.4 Monocytes % 3.2 Neutrophils # 11.8 H Neutrophils % 88.2 H Nucleated Red Blood Cells # 0.0 Nucleated Red Blood Cells % 0.0 Phosphorus Level 3.7 Platelet Count 93 #L Potassium Level 3.9 Red Blood Count 4.07 L Red Cell Distribution Width 16.8 H Sodium Level 144 White Blood Count 13.4 H Medications Medications Current Medications Brimonidine Tartrate (Alphagan 0.2%) 1 drop Q8 BOTH EYES Last administered on 05:40; Admin Dose 1 DROP; Start 03/01/16 at 06:00 Latanoprost (Xalatan) 1 drop QHS BOTH EYES Last administered on 03/20/16 21:22 ; Admin Dose 1 DROP; Start 03/01/16 at 21:00 Mycophenolate Mofetil (Cellcept) 500 mg BID PO Last administered on 03/14/16at 08:44; Admin Dose 500 MG; Start 03/01/16 at 09:00 Acetaminophen (Tylenol Tab) 650 mg Q4H PRN PO pain/fever Last administered on 03/08/16at 12:49; Admin Dose 650 MG; Start 03/01/16 at 01:00 Morphine Sulfate (morphine) 2 mg Q2H PRN IV pain Last administered on 03/19/16 01:55; Admin Dose 2 MG; Start 03/01/16 at 01:00 Miscellaneous Information 1 ea NOTE XX ; Start 03/01/16 at 02:00 Glucose (Glutose) 15 gm Q15M PRN PO DECREASED GLUCOSE; Start 03/01/16 at 02:00 Glucose (Glutose) 22.5 gm Q15M PRN PO DECREASED GLUCOSE; Start 03/01/16 at 02: 00 Dextrose (D50w Syringe) 25 ml Q15M PRN IV DECREASED GLUCOSE Last administered on 03/13/16at 13:36; Admin Dose 25 ML; Start 03/01/16 at 02:00 Dextrose (D50w Syringe) 50 ml Q15M PRN IV DECREASED GLUCOSE Last administered on 03/13/16at 12:30; Admin Dose 50 ML; Start 03/01/16 at 02:00 Glucagon (Glucagen) 1 mg Q15M PRN IM DECREASED GLUCOSE; Start 03/01/16 at 02: 00 Glucose (Glutose) 15 gm Q15M PRN BUCCAL DECREASED GLUCOSE; Start 03/01/16 at 02:00 Diagnostic Test (Pha) (Accucheck) 1 ea 02 XX Last administered on 03/21/16 02: 40; Admin Dose 1 EA; Start 03/02/16 at 02:00 Bisacodyl (Dulcolax Supp) 10 mg DAILY PRN [place] CONSTIPATION Last administered on 03/08/16at 23:47; Admin Dose 10 MG; Start 03/03/16 at 11:30 Clotrimazole (Lotrimin Cr) 1 applic BID TOP Last administered on 03/20/16 21:22 ; Admin Dose 1 APPLIC; Start 03/03/16 at 13:30 Docusate Sodium (Colace) 100 mg BID PO Last administered on 03/14/16at 08:45; Admin Dose 100 MG; Start 03/05/16 at 10:30 Ondansetron HCl (Zofran Inj) 4 mg Q4H PRN IV NAUSEA AND/OR VOMITING; Start at 23:30 Pantoprazole (Protonix Iv) 40 mg BID@06,18 IV Last administered on 03/21/16 05: 40; Admin Dose 40 MG; Start 03/10/16 at 06:00 Gabapentin (Neurontin) 300 mg Q8 GTB Last administered on 03/20/16 14:00; Admin Dose 300 MG; Start 03/13/16 at 06:00 Methylprednisolone Sodium Succinate 30 mg 30 mg DAILY IV Last administered on 08:07; Admin Dose 30 MG; Start 03/13/16 at 09:30 Meropenem/Sodium Chloride (Merrem/NS) 100 ml @ 200 mls/hr Q12 IVPB Last administered on 03/20/16 21:23; Admin Dose 200 MLS/HR; Start 03/13/16 at 17:00 Hydralazine HCl (Apresoline) 10 mg Q6H PRN IV SBP>160 Last administered on 01:28; Admin Dose 10 MG; Start 03/14/16 at 22:00 Clonidine HCl (Catapres-Tts 2 Patch) 1 patch Q7D TRANSDERM Last administered on 03/14/16at 22:00; Admin Dose 1 PATCH; Start 03/14/16 at 22:00 Diltiazem HCl (Cardizem Iv) 10 mg Q4 IV Last administered on 03/21/16 05:40; Admin Dose 10 MG; Start 03/15/16 at 01:00 Lubiprostone 24 mcg 24 mcg BID PO ; Start 03/15/16 at 16:00 Diltiazem HCl 125 ml @ 5 mls/hr TITRATE IV Last administered on 03/17/16at 02: 43; Admin Dose 15 MLS/HR; Start 03/16/16 at 10:30 Total Parenteral Nutrition 1,000 ml @ 40 mls/hr Q24H IV Last administered on 16:47; Admin Dose 40 MLS/HR; Start 03/17/16 at 16:00 Fat Emulsion Intravenous (Liposyn Ii 20%) 250 ml @ 10.4 mls/hr Q24H IV Last administered on 03/20/16 16:47; Admin Dose 10.4 MLS/HR; Start 03/17/16 at 16:00 Insulin Glargine (Lantus) 50 unit QHS SC Last administered on 03/20/16 21:33; Admin Dose 50 UNIT; Start 03/18/16 at 21:00 Insulin Aspart (Adult SC Insulin - Moder... Q6 SC Last administered on 05:44; Admin Dose 4 UNIT; Start 03/18/16 at 06:30 Vancomycin HCl 1.5 gm/Sodium Chloride 250 ml @ 83.333 mls/ hr Q24H IVPB Last administered on 03/20/16 11:22; Admin Dose 83.333 MLS/HR; Start 03/20/16 at 12:00 Dextrose/Sodium Chloride (D5-1/2ns) 1,000 ml @ 50 mls/hr Q20H IV Last administered on 03/21/16 00:33; Admin Dose 50 MLS/HR; Start 03/19/16 at 18:00 AISHA TINEO Mar 21, 2016 09:33
[2016-03-21 09:45] LABS: INR 0.97; PARTIAL THROMBOPLASTIN TIME 23.6 Sec (25.0-35.0); PROTIME 12.9 Sec (12.2-14.2)
--- NOTE | 2016-03-21 11:14 | CONS ---
Date/Time of Note Date/Time of Note DATE: 03/21/16 TIME: 11:10 Consult Date/Type/Reason Admit Date/Time Feb 29, 2016 at 18:54 Type of Consultation: Pulm Ordering Provider: KANCHAN LEONARD MD Subjective Appears comfortable. No resp distress no sedation Objective Vital Signs Date Time Temp Pulse Resp B/P Pulse Ox O2 Delivery O2 Flow Rate FiO2 03/21/16 11:00 85 32 118/53 99 Nasal Cannula 03/21/16 10:00 1.0 03/21/16 04:00 97.3 03/18/16 01:36 22 Intake and Output 03/20/16 03/20/16 03/21/16 15:00 23:00 07:00 Intake Total 1150 ml 902.0 ml 803.2 ml Output Total 735 ml 475 ml 430 ml Balance 415 ml 427.0 ml 373.2 ml GENERAL: Frail elderly lady confused. VITAL SIGNS: per chart NECK: Supple. No JVD or lymphadenopathy. CARDIAC EXAM: S1, S2. No added sounds or murmurs. CHEST: Diminished air entry bilaterally with rales ABDOMEN: Soft, nontender. No guarding or rebound. EXTREMITIES: No cyanosis, clubbing edema +1 NEUROLOGIC: Generalized weakness, not following commands Results/Medications Result Diagram: 03/21/16 0725 03/21/16 0725 Results 24 hrs Laboratory Tests Test 03/20/16 11:29 03/20/16 16:49 03/20/16 21:31 03/21/16 00:29 Bedside Glucose 199 216 254 H 262 H Test 03/21/16 02:35 03/21/16 05:39 03/21/16 07:25 Bedside Glucose 222 H 205 Activated Partial Thromboplast Time 23.6 L Anion Gap 17 H Basophils # 0.3 H Basophils % 2.4 H Blood Morphology Comment Blood Urea Nitrogen 45 H Calcium Level 7.8 L Carbon Dioxide Level 26 Chloride Level 105 Creatinine 0.68 Eosinophils # 0.0 Eosinophils % 0.3 Glucose Level 168 Hematocrit 34.1 L Hemoglobin 11.1 L INR International Normalized Ratio 0.97 Lymphocytes # 0.8 Lymphocytes % 5.9 L Magnesium Level 2.0 Mean Corpuscular Hemoglobin 27.3 L Mean Corpuscular Hemoglobin Concent 32.6 Mean Corpuscular Volume 83.6 Mean Platelet Volume 9.1 Monocytes # 0.4 Monocytes % 3.2 Neutrophils # 11.8 H Neutrophils % 88.2 H Nucleated Red Blood Cells # 0.0 Nucleated Red Blood Cells % 0.0 Phosphorus Level 3.7 Platelet Count 93 #L Potassium Level 3.9 Prothrombin Time 12.9 Prothrombin Time Ratio 1.0 Red Blood Count 4.07 L Red Cell Distribution Width 16.8 H Sodium Level 144 White Blood Count 13.4 H Medications Current Medications Brimonidine Tartrate (Alphagan 0.2%) 1 drop Q8 BOTH EYES Last administered on 05:40; Admin Dose 1 DROP; Start 03/01/16 at 06:00 Latanoprost (Xalatan) 1 drop QHS BOTH EYES Last administered on 03/20/16 21:22 ; Admin Dose 1 DROP; Start 03/01/16 at 21:00 Mycophenolate Mofetil (Cellcept) 500 mg BID PO Last administered on 03/14/16at 08:44; Admin Dose 500 MG; Start 03/01/16 at 09:00 Acetaminophen (Tylenol Tab) 650 mg Q4H PRN PO pain/fever Last administered on 03/08/16at 12:49; Admin Dose 650 MG; Start 03/01/16 at 01:00 Morphine Sulfate (morphine) 2 mg Q2H PRN IV pain Last administered on 03/19/16 01:55; Admin Dose 2 MG; Start 03/01/16 at 01:00 Miscellaneous Information 1 ea NOTE XX ; Start 03/01/16 at 02:00 Glucose (Glutose) 15 gm Q15M PRN PO DECREASED GLUCOSE; Start 03/01/16 at 02:00 Glucose (Glutose) 22.5 gm Q15M PRN PO DECREASED GLUCOSE; Start 03/01/16 at 02: 00 Dextrose (D50w Syringe) 25 ml Q15M PRN IV DECREASED GLUCOSE Last administered on 03/13/16at 13:36; Admin Dose 25 ML; Start 03/01/16 at 02:00 Dextrose (D50w Syringe) 50 ml Q15M PRN IV DECREASED GLUCOSE Last administered on 03/13/16at 12:30; Admin Dose 50 ML; Start 03/01/16 at 02:00 Glucagon (Glucagen) 1 mg Q15M PRN IM DECREASED GLUCOSE; Start 03/01/16 at 02: 00 Glucose (Glutose) 15 gm Q15M PRN BUCCAL DECREASED GLUCOSE; Start 03/01/16 at 02:00 Diagnostic Test (Pha) (Accucheck) 1 ea 02 XX Last administered on 03/21/16 02: 40; Admin Dose 1 EA; Start 03/02/16 at 02:00 Bisacodyl (Dulcolax Supp) 10 mg DAILY PRN [place] CONSTIPATION Last administered on 03/08/16at 23:47; Admin Dose 10 MG; Start 03/03/16 at 11:30 Clotrimazole (Lotrimin Cr) 1 applic BID TOP Last administered on 03/21/16 09:10 ; Admin Dose 1 APPLIC; Start 03/03/16 at 13:30 Docusate Sodium (Colace) 100 mg BID PO Last administered on 03/14/16at 08:45; Admin Dose 100 MG; Start 03/05/16 at 10:30 Ondansetron HCl (Zofran Inj) 4 mg Q4H PRN IV NAUSEA AND/OR VOMITING; Start at 23:30 Pantoprazole (Protonix Iv) 40 mg BID@06,18 IV Last administered on 03/21/16 05: 40; Admin Dose 40 MG; Start 03/10/16 at 06:00 Gabapentin (Neurontin) 300 mg Q8 GTB Last administered on 03/20/16 14:00; Admin Dose 300 MG; Start 03/13/16 at 06:00 Methylprednisolone Sodium Succinate 30 mg 30 mg DAILY IV Last administered on 09:09; Admin Dose 30 MG; Start 03/13/16 at 09:30 Meropenem/Sodium Chloride (Merrem/NS) 100 ml @ 200 mls/hr Q12 IVPB Last administered on 03/21/16 09:09; Admin Dose 200 MLS/HR; Start 03/13/16 at 17:00 Hydralazine HCl (Apresoline) 10 mg Q6H PRN IV SBP>160 Last administered on 01:28; Admin Dose 10 MG; Start 03/14/16 at 22:00 Clonidine HCl (Catapres-Tts 2 Patch) 1 patch Q7D TRANSDERM Last administered on 03/14/16at 22:00; Admin Dose 1 PATCH; Start 03/14/16 at 22:00 Diltiazem HCl (Cardizem Iv) 10 mg Q4 IV Last administered on 03/21/16 09:10; Admin Dose 10 MG; Start 03/15/16 at 01:00 Lubiprostone 24 mcg 24 mcg BID PO ; Start 03/15/16 at 16:00 Diltiazem HCl 125 ml @ 5 mls/hr TITRATE IV Last administered on 03/17/16at 02: 43; Admin Dose 15 MLS/HR; Start 03/16/16 at 10:30 Total Parenteral Nutrition 1,000 ml @ 40 mls/hr Q24H IV Last administered on 16:47; Admin Dose 40 MLS/HR; Start 03/17/16 at 16:00 Fat Emulsion Intravenous (Liposyn Ii 20%) 250 ml @ 10.4 mls/hr Q24H IV Last administered on 03/20/16 16:47; Admin Dose 10.4 MLS/HR; Start 03/17/16 at 16:00 Insulin Glargine (Lantus) 50 unit QHS SC Last administered on 03/20/16 21:33; Admin Dose 50 UNIT; Start 03/18/16 at 21:00 Insulin Aspart (Adult SC Insulin - Moder... Q6 SC Last administered on 05:44; Admin Dose 4 UNIT; Start 03/18/16 at 06:30 Vancomycin HCl 1.5 gm/Sodium Chloride 250 ml @ 83.333 mls/ hr Q24H IVPB Last administered on 03/20/16 11:22; Admin Dose 83.333 MLS/HR; Start 03/20/16 at 12:00 Dextrose/Sodium Chloride (D5-1/2ns) 1,000 ml @ 50 mls/hr Q20H IV Last administered on 03/21/16 00:33; Admin Dose 50 MLS/HR; Start 03/19/16 at 18:00 Assessment/Plan Chief Complaint/Hosp Course IMPRESSION: An 85-year-old female with: 1. Acute hypoxemic respiratory failure. Significant aspiration component significant neuromuscular weakness. 2. Chronic obstructive pulmonary disease exacerbation. 3. Bronchitis. As above persistent leukocytosis 4. Hypernatremia. 5. History of diabetes. Poor Glycemic control exacerbated by steroids 6. History of hypertension. 7. Atrial fibrillation with rapid ventricular rate 8. Coronary artery disease. 9. Anemia likely possibly dilutional questionable GI loss 10. Encephalopathy possibly toxic metabolic 11. 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 Deep suctioning. Aggressive pulmonary toilet. Keep nothing by mouth 2. Supplemental oxygen 3. Antibiotics. We will add vancomycin secondary to worsening WBC. Ct chest noted. chest PT left base. 4. Bronchodilators. 5. Noninvasive positive pressure ventilation if needed. 6. Speech therapy recommendations continue aspiration precautions 7. Rate control per cardiology 8. GI evaluation for anemia 9. Correction of hyponatremia and hypokalemia 10. TPN, PEG placement. 11. CT head noted,eeg noted. Prognosis guarded. Continue current care. Problems: SHIVA PERES MD[facility] Mar 21, 2016 11:14
--- NOTE | 2016-03-21 11:48 | PN ---
DATE: 03/21/2016 SUBJECTIVE: No events overnight. The patient is lying comfortably in bed. No fevers. She looks c omfortable on nasal cannula. Pulse 85, respirations 30, blood pressure 118/53, saturation 99 on 1 L. WBC 13.4, H and H 11.1 and 34.1, platelets 93, neutrophils 88.2. BUN 45, creatinine 0.68. MICROBIOLOGY: Urine culture repeated on 03/19 growing yeast. ANTIMICROBIALS: The patient is on: 1. IV vancomycin. 2. Meropenem. INDWELLINGS: Tong catheter, PICC line. PHYSICAL EXAMINATION: GENERAL: Morbidly obese, fragile elderly woman in no distress. HEENT: Head atraumatic, normocephalic. Sclerae anicteric. Buccal mucosa dry. NECK: Supple. CHEST: Rise symmetrical. Breath sounds diminished to bases. HEART: S1, S2. ABDOMEN: Soft. Bowel tones present. EXTREMITIES: Without cyanosis. ASSESSMENT: 1., Sepsis, resolving. 2. Healthcare-acquired pneumonia with ongoing aspiration secondary to dysphagia. 3. Urinary tract infection. 4. Acute renal failure. 5. Morbid obesity. 6. Status post constipation and fecal impaction. 7. Dysphagia. 8. History of pemphigoid disease, patient is status post Bactrim and CellCept. 9. Paroxysmal atrial fibrillation. PLAN: The patient is doing better. She is scheduled for PEG placement. We are going to add Difluc an to the regimen, continue her on current antimicrobials for now, follow recommendation of gurinder geller. Dictated By: LEÓN PAK SELVAGE MACHINE OPERATOR for MIMI MOSER/DARIO Conf#: [id number] DID#: [id number]
[2016-03-21] MEDS: VANCOMYCIN 1.5 GM in SOD CHLORIDE 0.9% 250 ML IVPB SCH (12:22)
[2016-03-21] MEDS ORDERED: FLUCONAZOLE 100 MG/NS (PMX) 50 ML IVPB SCH (13:00)
--- NOTE | 2016-03-21 13:03 | CONS ---
Date/Time of Note Date/Time of Note DATE: 03/21/16 TIME: 13:00 Assessment/Plan Assessment/Plan Additional Assessment/Plan Atrial fibrillation Respiratory failure Preserved ejection fraction Possible aspiration pneumonia Hypertension Anemia -Patient with heart rates on the lower end on current dose of Cardizem, would change to 5 mg, would watch blood pressure closely, patient on clonidine patch might need to decrease the dose. Consultation Date/Type/Reason Admit Date/Time Feb 29, 2016 at 18:54 Initial Consult Date 03/17/16 Type of Consultation: cv Referring Provider: KANCHAN LEONARD MD 24 HR Interval Summary Free Text/Dictation Patient seen and examined, family at bedside, in discussion with the nurse, heart rate has been on the lower end Exam/Review of Systems Vital Signs Vitals Vital Signs Date Time Temp Pulse Resp B/P Pulse Ox O2 Delivery O2 Flow Rate FiO2 03/21/16 11:00 85 32 118/53 99 Nasal Cannula 03/21/16 10:00 1.0 03/21/16 04:00 97.3 03/18/16 01:36 22 Intake and Output 03/20/16 03/20/16 03/21/16 15:00 23:00 07:00 Intake Total 1150 ml 902.0 ml 803.2 ml Output Total 735 ml 475 ml 430 ml Balance 415 ml 427.0 ml 373.2 ml Exam Awake, moaning at times Head: normocephalic Neck: supple Respiratory: other (course breath sounds bilaterally with minimal scattered rhonchi, no wheezing) Cardiovascular: irregular rhythm, other (S1-S2 heard) Gastrointestinal: bowel sounds, non-tender, soft Extremities: edema (trace) Results Result Diagram: 03/21/16 0725 03/21/16 0725 Results 24 hrs Laboratory Tests Test 03/20/16 16:49 03/20/16 21:31 03/21/16 00:29 03/21/16 02:35 Bedside Glucose 216 254 H 262 H 222 H Test 03/21/16 05:39 03/21/16 07:25 03/21/16 12:21 Bedside Glucose 205 175 Activated Partial Thromboplast Time 23.6 L Anion Gap 17 H Basophils # 0.3 H Basophils % 2.4 H Blood Morphology Comment Blood Urea Nitrogen 45 H Calcium Level 7.8 L Carbon Dioxide Level 26 Chloride Level 105 Creatinine 0.68 Eosinophils # 0.0 Eosinophils % 0.3 Glucose Level 168 Hematocrit 34.1 L Hemoglobin 11.1 L INR International Normalized Ratio 0.97 Lymphocytes # 0.8 Lymphocytes % 5.9 L Magnesium Level 2.0 Mean Corpuscular Hemoglobin 27.3 L Mean Corpuscular Hemoglobin Concent 32.6 Mean Corpuscular Volume 83.6 Mean Platelet Volume 9.1 Monocytes # 0.4 Monocytes % 3.2 Neutrophils # 11.8 H Neutrophils % 88.2 H Nucleated Red Blood Cells # 0.0 Nucleated Red Blood Cells % 0.0 Phosphorus Level 3.7 Platelet Count 93 #L Potassium Level 3.9 Prothrombin Time 12.9 Prothrombin Time Ratio 1.0 Red Blood Count 4.07 L Red Cell Distribution Width 16.8 H Sodium Level 144 White Blood Count 13.4 H Medications Medications Current Medications Brimonidine Tartrate (Alphagan 0.2%) 1 drop Q8 BOTH EYES Last administered on 05:40; Admin Dose 1 DROP; Start 03/01/16 at 06:00 Latanoprost (Xalatan) 1 drop QHS BOTH EYES Last administered on 03/20/16 21:22 ; Admin Dose 1 DROP; Start 03/01/16 at 21:00 Mycophenolate Mofetil (Cellcept) 500 mg BID PO Last administered on 03/14/16at 08:44; Admin Dose 500 MG; Start 03/01/16 at 09:00 Acetaminophen (Tylenol Tab) 650 mg Q4H PRN PO pain/fever Last administered on 03/08/16at 12:49; Admin Dose 650 MG; Start 03/01/16 at 01:00 Morphine Sulfate (morphine) 2 mg Q2H PRN IV pain Last administered on 03/19/16 01:55; Admin Dose 2 MG; Start 03/01/16 at 01:00 Miscellaneous Information 1 ea NOTE XX ; Start 03/01/16 at 02:00 Glucose (Glutose) 15 gm Q15M PRN PO DECREASED GLUCOSE; Start 03/01/16 at 02:00 Glucose (Glutose) 22.5 gm Q15M PRN PO DECREASED GLUCOSE; Start 03/01/16 at 02: 00 Dextrose (D50w Syringe) 25 ml Q15M PRN IV DECREASED GLUCOSE Last administered on 03/13/16at 13:36; Admin Dose 25 ML; Start 03/01/16 at 02:00 Dextrose (D50w Syringe) 50 ml Q15M PRN IV DECREASED GLUCOSE Last administered on 03/13/16at 12:30; Admin Dose 50 ML; Start 03/01/16 at 02:00 Glucagon (Glucagen) 1 mg Q15M PRN IM DECREASED GLUCOSE; Start 03/01/16 at 02: 00 Glucose (Glutose) 15 gm Q15M PRN BUCCAL DECREASED GLUCOSE; Start 03/01/16 at 02:00 Diagnostic Test (Pha) (Accucheck) 1 ea 02 XX Last administered on 03/21/16 02: 40; Admin Dose 1 EA; Start 03/02/16 at 02:00 Bisacodyl (Dulcolax Supp) 10 mg DAILY PRN [place] CONSTIPATION Last administered on 03/08/16at 23:47; Admin Dose 10 MG; Start 03/03/16 at 11:30 Clotrimazole (Lotrimin Cr) 1 applic BID TOP Last administered on 03/21/16 09:10 ; Admin Dose 1 APPLIC; Start 03/03/16 at 13:30 Docusate Sodium (Colace) 100 mg BID PO Last administered on 03/14/16at 08:45; Admin Dose 100 MG; Start 03/05/16 at 10:30 Ondansetron HCl (Zofran Inj) 4 mg Q4H PRN IV NAUSEA AND/OR VOMITING; Start at 23:30 Pantoprazole (Protonix Iv) 40 mg BID@06,18 IV Last administered on 03/21/16 05: 40; Admin Dose 40 MG; Start 03/10/16 at 06:00 Gabapentin (Neurontin) 300 mg Q8 GTB Last administered on 03/20/16 14:00; Admin Dose 300 MG; Start 03/13/16 at 06:00 Methylprednisolone Sodium Succinate 30 mg 30 mg DAILY IV Last administered on 09:09; Admin Dose 30 MG; Start 03/13/16 at 09:30 Meropenem/Sodium Chloride (Merrem/NS) 100 ml @ 200 mls/hr Q12 IVPB Last administered on 03/21/16 09:09; Admin Dose 200 MLS/HR; Start 03/13/16 at 17:00 Hydralazine HCl (Apresoline) 10 mg Q6H PRN IV SBP>160 Last administered on 01:28; Admin Dose 10 MG; Start 03/14/16 at 22:00 Clonidine HCl (Catapres-Tts 2 Patch) 1 patch Q7D TRANSDERM Last administered on 03/14/16at 22:00; Admin Dose 1 PATCH; Start 03/14/16 at 22:00 Diltiazem HCl (Cardizem Iv) 10 mg Q4 IV Last administered on 03/21/16 12:23; Admin Dose 10 MG; Start 03/15/16 at 01:00 Lubiprostone 24 mcg 24 mcg BID PO ; Start 03/15/16 at 16:00 Diltiazem HCl 125 ml @ 5 mls/hr TITRATE IV Last administered on 03/17/16at 02: 43; Admin Dose 15 MLS/HR; Start 03/16/16 at 10:30 Total Parenteral Nutrition 1,000 ml @ 40 mls/hr Q24H IV Last administered on 16:47; Admin Dose 40 MLS/HR; Start 03/17/16 at 16:00 Fat Emulsion Intravenous (Liposyn Ii 20%) 250 ml @ 10.4 mls/hr Q24H IV Last administered on 03/20/16 16:47; Admin Dose 10.4 MLS/HR; Start 03/17/16 at 16:00 Insulin Glargine (Lantus) 50 unit QHS SC Last administered on 03/20/16 21:33; Admin Dose 50 UNIT; Start 03/18/16 at 21:00 Insulin Aspart (Adult SC Insulin - Moder... Q6 SC Last administered on 12:25; Admin Dose 2 UNIT; Start 03/18/16 at 06:30 Vancomycin HCl 1.5 gm/Sodium Chloride 250 ml @ 83.333 mls/ hr Q24H IVPB Last administered on 03/21/16 12:22; Admin Dose 83.333 MLS/HR; Start 03/20/16 at 12:00 Dextrose/Sodium Chloride 1,000 ml @ 50 mls/hr Q20H IV Last administered on 03/21 00:33; Admin Dose 50 MLS/HR; Start 03/19/16 at 18:00 Fluconazole/ Sodium Chloride (Diflucan 100 Mg/ NS (Pmx)) 50 ml @ 50 mls/hr Q24H IVPB ; Start 03/21/16 at 13:00 Simone Carmen DO Mar 21, 2016 13:02
--- NOTE | 2016-03-21 13:10 | CONS ---
Date/Time of Note Date/Time of Note DATE: 03/21/16 TIME: 13:06 Consult Date/Type/Reason Admit Date/Time Feb 29, 2016 at 18:54 Initial Consult Date 03/20/16 Type of Consultation: Neurology follow up Reason for Consultation encephalopathy Ordering Provider: KANCHAN LEONARD MD Subjective family at bedside- aunt was at bedside when patient was evaluated she is more awake today, however remains non-verbal and unable to follow commands Objective Vital Signs Date Time Temp Pulse Resp B/P Pulse Ox O2 Delivery O2 Flow Rate FiO2 03/21/16 11:00 85 32 118/53 99 Nasal Cannula 03/21/16 10:00 1.0 03/21/16 04:00 97.3 03/18/16 01:36 22 Intake and Output 03/20/16 03/20/16 03/21/16 15:00 23:00 07:00 Intake Total 1150 ml 902.0 ml 803.2 ml Output Total 735 ml 475 ml 430 ml Balance 415 ml 427.0 ml 373.2 ml examined off sedation elderly female , thin, receiving supplemental oxygen maintains arousal today, briefly looks at examiner tracks briefly not following commands CN: RAHUL, blinks to threat, dolls intact no facial asymmetry Motor: withdraws in both arms and legs Sensory: intact throughout Coordination: non-cooperative Reflexes 2+ throughout symmetric Results/Medications Result Diagram: 03/21/16 0725 03/21/16 0725 Results 24 hrs Laboratory Tests Test 03/20/16 16:49 03/20/16 21:31 03/21/16 00:29 03/21/16 02:35 Bedside Glucose 216 254 H 262 H 222 H Test 03/21/16 05:39 03/21/16 07:25 03/21/16 12:21 Bedside Glucose 205 175 Activated Partial Thromboplast Time 23.6 L Anion Gap 17 H Basophils # 0.3 H Basophils % 2.4 H Blood Morphology Comment Blood Urea Nitrogen 45 H Calcium Level 7.8 L Carbon Dioxide Level 26 Chloride Level 105 Creatinine 0.68 Eosinophils # 0.0 Eosinophils % 0.3 Glucose Level 168 Hematocrit 34.1 L Hemoglobin 11.1 L INR International Normalized Ratio 0.97 Lymphocytes # 0.8 Lymphocytes % 5.9 L Magnesium Level 2.0 Mean Corpuscular Hemoglobin 27.3 L Mean Corpuscular Hemoglobin Concent 32.6 Mean Corpuscular Volume 83.6 Mean Platelet Volume 9.1 Monocytes # 0.4 Monocytes % 3.2 Neutrophils # 11.8 H Neutrophils % 88.2 H Nucleated Red Blood Cells # 0.0 Nucleated Red Blood Cells % 0.0 Phosphorus Level 3.7 Platelet Count 93 #L Potassium Level 3.9 Prothrombin Time 12.9 Prothrombin Time Ratio 1.0 Red Blood Count 4.07 L Red Cell Distribution Width 16.8 H Sodium Level 144 White Blood Count 13.4 H Medications Current Medications Brimonidine Tartrate (Alphagan 0.2%) 1 drop Q8 BOTH EYES Last administered on 05:40; Admin Dose 1 DROP; Start 03/01/16 at 06:00 Latanoprost (Xalatan) 1 drop QHS BOTH EYES Last administered on 03/20/16 21:22 ; Admin Dose 1 DROP; Start 03/01/16 at 21:00 Mycophenolate Mofetil (Cellcept) 500 mg BID PO Last administered on 03/14/16at 08:44; Admin Dose 500 MG; Start 03/01/16 at 09:00 Acetaminophen (Tylenol Tab) 650 mg Q4H PRN PO pain/fever Last administered on 03/08/16at 12:49; Admin Dose 650 MG; Start 03/01/16 at 01:00 Morphine Sulfate (morphine) 2 mg Q2H PRN IV pain Last administered on 03/19/16 01:55; Admin Dose 2 MG; Start 03/01/16 at 01:00 Miscellaneous Information 1 ea NOTE XX ; Start 03/01/16 at 02:00 Glucose (Glutose) 15 gm Q15M PRN PO DECREASED GLUCOSE; Start 03/01/16 at 02:00 Glucose (Glutose) 22.5 gm Q15M PRN PO DECREASED GLUCOSE; Start 03/01/16 at 02: 00 Dextrose (D50w Syringe) 25 ml Q15M PRN IV DECREASED GLUCOSE Last administered on 03/13/16at 13:36; Admin Dose 25 ML; Start 03/01/16 at 02:00 Dextrose (D50w Syringe) 50 ml Q15M PRN IV DECREASED GLUCOSE Last administered on 03/13/16at 12:30; Admin Dose 50 ML; Start 03/01/16 at 02:00 Glucagon (Glucagen) 1 mg Q15M PRN IM DECREASED GLUCOSE; Start 03/01/16 at 02: 00 Glucose (Glutose) 15 gm Q15M PRN BUCCAL DECREASED GLUCOSE; Start 03/01/16 at 02:00 Diagnostic Test (Pha) (Accucheck) 1 ea 02 XX Last administered on 03/21/16 02: 40; Admin Dose 1 EA; Start 03/02/16 at 02:00 Bisacodyl (Dulcolax Supp) 10 mg DAILY PRN [place] CONSTIPATION Last administered on 03/08/16at 23:47; Admin Dose 10 MG; Start 03/03/16 at 11:30 Clotrimazole (Lotrimin Cr) 1 applic BID TOP Last administered on 03/21/16 09:10 ; Admin Dose 1 APPLIC; Start 03/03/16 at 13:30 Docusate Sodium (Colace) 100 mg BID PO Last administered on 03/14/16at 08:45; Admin Dose 100 MG; Start 03/05/16 at 10:30 Ondansetron HCl (Zofran Inj) 4 mg Q4H PRN IV NAUSEA AND/OR VOMITING; Start at 23:30 Pantoprazole (Protonix Iv) 40 mg BID@06,18 IV Last administered on 03/21/16 05: 40; Admin Dose 40 MG; Start 03/10/16 at 06:00 Gabapentin (Neurontin) 300 mg Q8 GTB Last administered on 03/20/16 14:00; Admin Dose 300 MG; Start 03/13/16 at 06:00 Methylprednisolone Sodium Succinate 30 mg 30 mg DAILY IV Last administered on 09:09; Admin Dose 30 MG; Start 03/13/16 at 09:30 Meropenem/Sodium Chloride (Merrem/NS) 100 ml @ 200 mls/hr Q12 IVPB Last administered on 03/21/16 09:09; Admin Dose 200 MLS/HR; Start 03/13/16 at 17:00 Hydralazine HCl (Apresoline) 10 mg Q6H PRN IV SBP>160 Last administered on 01:28; Admin Dose 10 MG; Start 03/14/16 at 22:00 Clonidine HCl (Catapres-Tts 2 Patch) 1 patch Q7D TRANSDERM Last administered on 12/28/16at 22:00; Admin Dose 1 PATCH; Start 03/14/16 at 22:00 Lubiprostone 24 mcg 24 mcg BID PO ; Start 03/15/16 at 16:00 Diltiazem HCl 125 ml @ 5 mls/hr TITRATE IV Last administered on 03/17/16at 02: 43; Admin Dose 15 MLS/HR; Start 03/16/16 at 10:30 Total Parenteral Nutrition 1,000 ml @ 40 mls/hr Q24H IV Last administered on 16:47; Admin Dose 40 MLS/HR; Start 03/17/16 at 16:00 Fat Emulsion Intravenous (Liposyn Ii 20%) 250 ml @ 10.4 mls/hr Q24H IV Last administered on 03/20/16 16:47; Admin Dose 10.4 MLS/HR; Start 03/17/16 at 16:00 Insulin Glargine (Lantus) 50 unit QHS SC Last administered on 03/20/16 21:33; Admin Dose 50 UNIT; Start 03/18/16 at 21:00 Insulin Aspart (Adult SC Insulin - Moder... Q6 SC Last administered on 12:25; Admin Dose 2 UNIT; Start 03/18/16 at 06:30 Vancomycin HCl 1.5 gm/Sodium Chloride 250 ml @ 83.333 mls/ hr Q24H IVPB Last administered on 03/21/16 12:22; Admin Dose 83.333 MLS/HR; Start 03/20/16 at 12:00 Dextrose/Sodium Chloride 1,000 ml @ 50 mls/hr Q20H IV Last administered on 03/21 00:33; Admin Dose 50 MLS/HR; Start 03/19/16 at 18:00 Fluconazole/ Sodium Chloride (Diflucan 100 Mg/ NS (Pmx)) 50 ml @ 50 mls/hr Q24H IVPB ; Start 03/21/16 at 13:00 Diltiazem HCl (Cardizem Iv) 5 mg Q4 IV ; Start 03/21/16 at 17:00 Assessment/Plan Chief Complaint/Hosp Course 85 year old female with multiple medical issues currently admitted to the ICU for management of respiratory failure, afib with RVR, possible aspiration pneumonia, hypernatremia with persistent encephalopathy. CTH was done shows chronic microvascular changes, chronic lacunar infarcts. calcification along the tentorium, mild to moderate atrophy MRI Brain also showed chronic lacunar infarcts no acute pathology. T1 hyperintense lesion c/w epidermoid cyst, chronic microvascular changes. Recommendations: -Routine EEG completed, awaiting official results -avoid sedating medications, fentanyl patch now discontinued patient seems more awake today will continue to reassess mental status Problems: SRIKANTH REDDY MD Mar 21, 2016 13:10
[2016-03-21] MEDS ORDERED: CEFAZOLIN 1 GM/50 ML (PMX) 50 ML IVPB ONE (15:04)
[2016-03-21] MEDS: TPN 1,000 ML IV SCH (17:02)
[2016-03-21] MEDS: FAT EMULSION 20% 250 ML IV SCH (18:09)
--- NOTE | 2016-03-21 20:01 | SP ---
DATE OF PROCEDURE: 03/20/2016 ELECTROENCEPHALOGRAM HISTORY: This is an 85-year-old woman with history of respiratory failure, possible aspiration pneu monia, is being evaluated for possible encephalopathy. CURRENT MEDICATIONS: 1. Vancomycin. 2. Diltiazem. 3. Amitiza. 4. Cardizem. 5. Apresoline. 6. Solu-Medrol. 7. Neurontin. 8. Protonix. PROCEDURE: Utilizing a 16-channel EEG machine, cap scalp electrodes were applied in accordance with International 10-20 system. [id number], [id number] montages were displayed. Electrical impe dances were measured and reported. DESCRIPTION: During resting state, posterior dominant rhythm of about 6 to 8 Hz was seen bi-hemisph erically. Photic stimulation had a good response. Hyperventilation was not performed. Excessive m uscle artifact was noted throughout the tracing. Blink artifact was also noted throughout the clement ng. INTERPRETATION: This is an abnormal electroencephalogram because of presence of generalized bihemis pheric background slowing without any epileptiform activity consistent with subcortical dysfunction consistent with encephalopathy. Please correlate these findings with the patient's clinical picture . Dictated By: MAGGIE MORTON/DARIO Conf#: [id number] DID#: [id number]
[2016-03-21] MEDS: CLONIDINE 0.2 MG/24 HR PATCH TRANSDERM SCH (21:57)
[2016-03-21] MEDS: LATANOPROST 0.005% 2.5 ML OPH BOTH EYES SCH (21:57)
[2016-03-21] MEDS: INSULIN GLARGINE [LANtus] 3 ML PEN SC SCH (22:01)
[2016-03-22] VITALS (21 sets, daily range): BP systolic 98–166; BP diastolic 40–98; PULSE 83–131; RESP 22–35
[2016-03-22] MEDS: DILTIAZEM 25 MG INJ IV SCH ×4 (01:27→13:01)
[2016-03-22] MEDS: MYCOPHENOLATE 250 MG CAP PO SCH (01:34)
[2016-03-22] MEDS: DOCUSATE SODIUM 100 MG CAP PO SCH (01:34)
[2016-03-22] MEDS: GABAPENTIN 300 MG CAP GTB SCH ×4 (01:34→22:28)
[2016-03-22] MEDS: LUBIPROSTONE 24 MCG CAP PO SCH ×3 (01:35→09:12)
[2016-03-22] MEDS: ALBUTEROL/IPRATROPIUM (NEB) 3 ML AMP HHN SCH ×4 (01:47→19:23)
[2016-03-22] MEDS: ACCUCHECK AT 2AM (Patients on SS coverage) XX SCH (01:54)
[2016-03-22 05:20] LABS: HEMATOCRIT 32.3 % (37.0-47.0); HEMOGLOBIN 10.4 g/dl (12.0-16.0); MEAN CORPUSCULAR HEMOGLOBIN 26.8 pg (29.0-33.0); MEAN CORPUSCULAR HGB CONC 32.2 g/dl (32.0-37.0); MEAN CORPUSCULAR VOLUME 83.4 fl (82.0-101.0); MEAN PLATELET VOLUME 9.2 fl (7.4-10.4); PLATELET COUNT 79 10^3/UL (140-440); RED BLOOD COUNT 3.88 10^6/ul (4.20-5.40); RED CELL DISTRIBUTION WIDTH 17.6 % (11.5-14.5); UNCORRECTED WBC 11.3 10^3/ul (4.8-10.8); WHITE BLOOD COUNT 11.3 10^3/ul (4.8-10.8)
[2016-03-22 05:22] LABS: MAGNESIUM 1.9 mg/dl (1.7-2.5); PHOSPHORUS 4.1 mg/dl (2.5-4.9)
[2016-03-22 05:25] LABS: ALBUMIN 2.6 g/dl (3.3-4.9); POTASSIUM 4.1 mmol/L (3.5-5.1)
[2016-03-22 05:27] LABS: CREATININE 0.8 mg/dl (0.44-1.00)
[2016-03-22 05:28] LABS: ALBUMIN/GLOBULIN RATIO 1.3; BILIRUBIN,INDIRECT 0.3 mg/dl (0-1.1); BILIRUBIN,TOTAL 0.3 mg/dl (0.2-1.3); CALCIUM 7.9 mg/dl (8.4-10.2); TOTAL PROTEIN 4.6 g/dl (6.1-8.1)
[2016-03-22] MEDS: BRIMONIDINE 0.2% 5 ML BTL BOTH EYES SCH ×3 (05:30→22:28)
[2016-03-22] MEDS: DEXTROSE 5%-0.45% NACL 1,000 ML IV SCH (05:30)
[2016-03-22] MEDS: PANTOPRAZOLE 40 MG INJ IV SCH ×2 (05:30→18:37)
[2016-03-22] MEDS: Insulin NOVOLOG SS MODERATE Algorithm(NPO/TPN/ENTERAL FEEDS) SC SCH ×4 (05:32→23:56)
[2016-03-22 06:07] LABS: CONDITION 1; LH ANALYZER COMMENTS 1; SUSPECT 1
[2016-03-22] MEDS: METHYLPREDNISOLONE 40 MG INJ IV SCH (09:08)
[2016-03-22] MEDS: MEROPENEM 500 MG in SOD CHLORIDE 0.9% 100 ML IVPB SCH ×2 (09:11→20:25)
[2016-03-22] MEDS: DOCUSATE SODIUM 10 MG/ML (10ML CUP) PEG SCH ×2 (09:11→20:25)
[2016-03-22] MEDS: CLOTRIMAZOLE 1% 30 GM CR TOP SCH ×2 (09:23→20:26)
[2016-03-22 09:36] LABS: ANISOCYTOSIS 1+; HYPOCHROMASIA 2+; LYMPHOCYTES # 0.8 10^3/ul (0.8-2.9); MONOCYTE # 0.7 10^3/ul (0.3-0.9); NEUTROPHIL # 9.6 10^3/ul (1.6-7.5); OVALOCYTES RARE; PLATELET ESTIMATE PLT APPEAR DECREASED
--- NOTE | 2016-03-22 09:38 | PN ---
Date/Time of Note Date/Time of Note DATE: 03/22/16 TIME: 09:00 Assessment/Plan VTE Prophylaxis VTE Prophylaxis Intervention: SCD's Lines/Catheters IV Catheter Type (from Nrsg): PICC Line Central line still needed: Yes (for IV access ) Urinary Cath still in place: Yes Reason Cath still needed: other (indicate) (for UOP monitoring ) Assessment/Plan Assessment/Plan 85 yo female with: 1. Respiratory distress and insufficiency, improved but patient sleepy and altered this past few days, CT head negative, MRI Brain with no acute findings, CT chest stable. Fentanyl patch removed and Ativan discontinued per Neurology and absolutely appropriately so. WBC coming down and respiratory status stable on 2L NC and still on steroids and IV abx, patient with known immunosuppression Still on Aspiration protocol, Continue meropenem per ID and also on Vancomycin She failed bedside speech swallow and now s/p EGD and PEG tube placement yesterday. 2. Constipation improved overall, likely secondary to her hyperglycemia and Fentanyl patch use. Previous CT abd/pelvis showed no evidence of abdominopelvic mass, lymphadenopathy or focal acute inflammatory pathology. FOB was positive but Hb now stable. Again no BM for a few days, GI aware and now that PEG tube placed, getting bowel regimen via PEG EGD with no source of bleeding per Dr Zuniga so will eventually need Colonoscopy. 3. Atrial fibrillation with episodes of RVR, better controlled now Renal function back to normal now Hold Eliquis given ? GI bleeding and may need colonoscopy to r/o possible source of bleeding prior to resuming K and Mag stable 4. JUAN with known CKD: Renal function back to baseline and even more improved Uremia resolved. 5. Anemia, acute: s/p 2 units pRBC on 03/16, Hb up to 10.4 today and has remained stable over past few days, no acute GIB noted and EGD with no source of bleeding, only mild esophagitis reported EGD today Platelets down to 79 today, monitor closely and will have to hold of cath lg and also will review antibiotic regimen with ID, patient has been off anticoagulation prior to decrease in platelet count. 6. Diabetes Mellitus: D/c TPN and starting tube feeding already today, adjust Lantus and SSI accordingly. 7. Hypertension. Continue Clonidine, Norvasc, and Cardizem and titrate accordingly 8. Pemphigoid disease per family: on Cellcept. 9. Chronic Pain: on fentanyl patch, I have approached the family to d/c fentanyl patch as probably part of cause of bowel issues but they have been reluctant/resistant. Given now issues with MS, agree with Neurology to just d/c if need be we can resume at lower dose of 25 or 50 mcg 10 Nutrition: D/c TPN today and started tube feeding to be adjusted by dietary today Continue IVF for now . 11. UTI: E coli and now Cindy Glabrata, will discuss with ID may need to change antifungal to Voriconazole, will also need to change Tong Prophylaxis: Holding Eliquis for now due to current concerns about GI bleeding. SCDs. Protonix for GI prophylaxis Disposition: Case d/w with care team in ICU, and skin care instructor at bedside. Subjective 24 Hr Interval Summary Free Text/Dictation Patient doing OK S/p EGD and PEG tube placement Plts low at 73 No Acute Bleeding Renal function back to baseline Exam/Review of Systems Vital Signs Vitals Vital Signs Date Time Temp Pulse Resp B/P Pulse Ox O2 Delivery O2 Flow Rate FiO2 03/22/16 08:18 98 28 99 Nasal Cannula 1.0 03/22/16 08:00 137/66 03/22/16 07:00 98.0 Intake and Output 03/21/16 03/21/16 03/22/16 14:59 22:59 06:59 Intake Total 903.2 ml 852.0 ml 10 ml Output Total 570 ml 335 ml 305 ml Balance 333.2 ml 517.0 ml -295 ml Exam Constitutional: alert, frail, other (easily arousable and german speaking ) Respiratory: clear to auscultation, normal air movement Cardiovascular: nl pulses, regular rate and rhythm Gastrointestinal: other (PEG tube in place ), soft Musculoskeletal: nl extremities to inspection Extremities: normal pulses, other (no edema, clubbing or cyanosis ) Neurological: [employer] II-XII intact, lethargic Results Result Diagram: 03/22/1639903/22/16 040 Results 24 hrs Laboratory Tests Test 03/21/16 12:21 03/21/16 17:19 03/21/16 21:59 03/21/16 23:41 Bedside Glucose 175 189 176 195 Test 03/22/16 01:49 03/22/16 04:00 03/22/16 05:18 Bedside Glucose 177 175 Alanine Aminotransferase (ALT/SGPT) 37 Albumin 2.6 L Albumin/Globulin Ratio 1.30 Alkaline Phosphatase 64 Anion Gap 11 Aspartate Amino Transf (AST/SGOT) 20 Basophils # Pending Basophils % Pending Blood Morphology Comment Blood Urea Nitrogen 43 H Calcium Level 7.9 L Carbon Dioxide Level 29 Chloride Level 105 Creatinine 0.80 Direct Bilirubin 0.00 Eosinophils # Pending Eosinophils % Pending Globulin 2.00 Glucose Level 168 Hematocrit 32.3 L Hemoglobin 10.4 L Indirect Bilirubin 0.3 Lymphocytes # Pending Lymphocytes % Pending Magnesium Level 1.9 Mean Corpuscular Hemoglobin 26.8 L Mean Corpuscular Hemoglobin Concent 32.2 Mean Corpuscular Volume 83.4 Mean Platelet Volume 9.2 Monocytes # Pending Monocytes % Pending Neutrophils # Pending Neutrophils % Pending Nucleated Red Blood Cells # Pending Nucleated Red Blood Cells % Pending Phosphorus Level 4.1 Platelet Count 79 L Potassium Level 4.1 Red Blood Count 3.88 L Red Cell Distribution Width 17.6 H Sodium Level 141 Total Bilirubin 0.3 Total Protein 4.6 L White Blood Count 11.3 H Medications Medications Current Medications Brimonidine Tartrate (Alphagan 0.2%) 1 drop Q8 BOTH EYES Last administered on 05:30; Admin Dose 1 DROP; Start 03/01/16 at 06:00 Latanoprost (Xalatan) 1 drop QHS BOTH EYES Last administered on 03/21/16 21:57 ; Admin Dose 1 DROP; Start 03/01/16 at 21:00 Acetaminophen (Tylenol Tab) 650 mg Q4H PRN PO pain/fever Last administered on 03/08/16at 12:49; Admin Dose 650 MG; Start 03/01/16 at 01:00 Morphine Sulfate (morphine) 2 mg Q2H PRN IV pain Last administered on 03/19/16 01:55; Admin Dose 2 MG; Start 03/01/16 at 01:00 Miscellaneous Information 1 ea NOTE XX ; Start 03/01/16 at 02:00 Glucose (Glutose) 15 gm Q15M PRN PO DECREASED GLUCOSE; Start 03/01/16 at 02:00 Glucose (Glutose) 22.5 gm Q15M PRN PO DECREASED GLUCOSE; Start 03/01/16 at 02: 00 Dextrose (D50w Syringe) 25 ml Q15M PRN IV DECREASED GLUCOSE Last administered on 03/13/16at 13:36; Admin Dose 25 ML; Start 03/01/16 at 02:00 Dextrose (D50w Syringe) 50 ml Q15M PRN IV DECREASED GLUCOSE Last administered on 03/13/16at 12:30; Admin Dose 50 ML; Start 03/01/16 at 02:00 Glucagon (Glucagen) 1 mg Q15M PRN IM DECREASED GLUCOSE; Start 03/01/16 at 02: 00 Glucose (Glutose) 15 gm Q15M PRN BUCCAL DECREASED GLUCOSE; Start 03/01/16 at 02:00 Diagnostic Test (Pha) (Accucheck) 1 ea 02 XX Last administered on 03/22/16 01: 54; Admin Dose 1 EA; Start 03/02/16 at 02:00 Bisacodyl (Dulcolax Supp) 10 mg DAILY PRN [place] CONSTIPATION Last administered on 03/08/16at 23:47; Admin Dose 10 MG; Start 03/03/16 at 11:30 Clotrimazole (Lotrimin Cr) 1 applic BID TOP Last administered on 03/21/16 21:58 ; Admin Dose 1 APPLIC; Start 03/03/16 at 13:30 Ondansetron HCl (Zofran Inj) 4 mg Q4H PRN IV NAUSEA AND/OR VOMITING; Start at 23:30 Pantoprazole (Protonix Iv) 40 mg BID@06,18 IV Last administered on 03/22/16 05: 30; Admin Dose 40 MG; Start 03/10/16 at 06:00 Gabapentin (Neurontin) 300 mg Q8 GTB Last administered on 03/22/16 05:30; Admin Dose 300 MG; Start 03/13/16 at 06:00 Methylprednisolone Sodium Succinate 30 mg 30 mg DAILY IV Last administered on 09:09; Admin Dose 30 MG; Start 03/13/16 at 09:30 Meropenem/Sodium Chloride (Merrem/NS) 100 ml @ 200 mls/hr Q12 IVPB Last administered on 03/21/16 21:56; Admin Dose 200 MLS/HR; Start 03/13/16 at 17:00 Hydralazine HCl (Apresoline) 10 mg Q6H PRN IV SBP>160 Last administered on 01:28; Admin Dose 10 MG; Start 03/14/16 at 22:00 Clonidine HCl (Catapres-Tts 2 Patch) 1 patch Q7D TRANSDERM Last administered on 03/21/16 21:57; Admin Dose 1 PATCH; Start 03/14/16 at 22:00 Lubiprostone 24 mcg 24 mcg BID PO Last administered on 03/22/16 01:35; Admin Dose 24 MCG; Start 03/15/16 at 16:00 Total Parenteral Nutrition 1,000 ml @ 40 mls/hr Q24H IV Last administered on 17:02; Admin Dose 40 MLS/HR; Start 03/17/16 at 16:00 Fat Emulsion Intravenous (Liposyn Ii 20%) 250 ml @ 10.4 mls/hr Q24H IV Last administered on 03/21/16 18:09; Admin Dose 10.4 MLS/HR; Start 03/17/16 at 16:00 Insulin Glargine (Lantus) 50 unit QHS SC Last administered on 03/21/16 22:01; Admin Dose 50 UNIT; Start 03/18/16 at 21:00 Insulin Aspart (Adult SC Insulin - Moder... Q6 SC Last administered on 05:32; Admin Dose 2 UNIT; Start 03/18/16 at 06:30 Vancomycin HCl 1.5 gm/Sodium Chloride 250 ml @ 83.333 mls/ hr Q24H IVPB Last administered on 03/21/16 12:22; Admin Dose 83.333 MLS/HR; Start 03/20/16 at 12:00 Dextrose/Sodium Chloride 1,000 ml @ 50 mls/hr Q20H IV Last administered on 03/22 05:30; Admin Dose 50 MLS/HR; Start 03/19/16 at 18:00 Fluconazole/ Sodium Chloride (Diflucan 100 Mg/ NS (Pmx)) 50 ml @ 50 mls/hr Q24H IVPB Last administered on 03/21/16 13:59; Admin Dose 50 MLS/HR; Start 03/21/16 at 13:00 Diltiazem HCl (Cardizem Iv) 5 mg Q4 IV Last administered on 03/22/16 05:29; Admin Dose 5 MG; Start 03/21/16 at 17:00 Miscellaneous Information (*Rx Drug Level Order Reminder*) VANCO TR LEVEL PRIOR... ONCE ONCE XX ; Start 03/22/16 at 11:00; Stop 03/22/16 at 11:01 Docusate Sodium (Colace Liquid Cup) 100 mg BID PEG ; Start 03/22/16 at 09:00 Mycophenolate Mofetil (Cellcept) 500 mg BID PEG ; Start 03/22/16 at 09:00 AISHA TINEO Mar 22, 2016 09:13
--- NOTE | 2016-03-22 11:21 | CONS ---
Date/Time of Note Date/Time of Note DATE: 03/22/16 TIME: 11:18 Consult Date/Type/Reason Admit Date/Time Feb 29, 2016 at 18:54 Initial Consult Date 03/20/16 Type of Consultation: Neurology follow up Reason for Consultation evaluate for persistent encephalopathy Ordering Provider: KANCHAN LEONARD MD Subjective family at bedside she is more arousable today per niece at bedside she said "[place]" today and seems to recognize her Objective Vital Signs Date Time Temp Pulse Resp B/P Pulse Ox O2 Delivery O2 Flow Rate FiO2 03/22/16 08:18 98 28 99 Nasal Cannula 1.0 03/22/16 08:00 137/66 03/22/16 07:00 98.0 Intake and Output 03/21/16 03/21/16 03/22/16 15:00 23:00 07:00 Intake Total 953.2 ml 701.6 ml 10 ml Output Total 545 ml 325 ml 265 ml Balance 408.2 ml 376.6 ml -255 ml examined off sedation elderly female , thin, receiving supplemental oxygen maintains arousal today, briefly looks at examiner tracks examiner and niece today says "ow" when noxious stimuli applied, more verbal than previous not following commands CN: RAHUL, blinks to threat, dolls intact no facial asymmetry Motor: withdraws in both arms and legs Sensory: intact throughout senses noxious easily Coordination: non-cooperative Reflexes 2+ throughout symmetric Results/Medications Result Diagram: 03/22/16 0400 03/22/16 0400 Results 24 hrs Laboratory Tests Test 03/21/16 12:21 03/21/16 17:19 03/21/16 21:59 03/21/16 23:41 Bedside Glucose 175 189 176 195 Test 03/22/16 01:49 03/22/16 04:00 03/22/16 05:18 Bedside Glucose 177 175 Alanine Aminotransferase (ALT/SGPT) 37 Albumin 2.6 L Albumin/Globulin Ratio 1.30 Alkaline Phosphatase 64 Anion Gap 11 Anisocytosis 1+ Aspartate Amino Transf (AST/SGOT) 20 Band Neutrophils % 2.0 Basophils # Basophils % Blood Morphology Comment Blood Urea Nitrogen 43 H Calcium Level 7.9 L Carbon Dioxide Level 29 Chloride Level 105 Creatinine 0.80 Differential Comment MANUAL DIFF Direct Bilirubin 0.00 Eosinophils # Eosinophils % Globulin 2.00 Glucose Level 168 Hematocrit 32.3 L Hemoglobin 10.4 L Hypochromasia 2+ Indirect Bilirubin 0.3 Lymphocytes # 0.8 Lymphocytes % 7.0 L Magnesium Level 1.9 Mean Corpuscular Hemoglobin 26.8 L Mean Corpuscular Hemoglobin Concent 32.2 Mean Corpuscular Volume 83.4 Mean Platelet Volume 9.2 Monocytes # 0.7 Monocytes % 6.0 Neutrophils # 9.6 H Neutrophils % 85.0 H Nucleated Red Blood Cells # Nucleated Red Blood Cells % Ovalocytes RARE Phosphorus Level 4.1 Platelet Count 79 L Platelet Estimate PLT APPEAR DECREASED Potassium Level 4.1 Red Blood Count 3.88 L Red Cell Distribution Width 17.6 H Sodium Level 141 Total Bilirubin 0.3 Total Protein 4.6 L White Blood Count 11.3 H Medications Current Medications Brimonidine Tartrate (Alphagan 0.2%) 1 drop Q8 BOTH EYES Last administered on 05:30; Admin Dose 1 DROP; Start 03/01/16 at 06:00 Latanoprost (Xalatan) 1 drop QHS BOTH EYES Last administered on 03/21/16 21:57 ; Admin Dose 1 DROP; Start 03/01/16 at 21:00 Acetaminophen (Tylenol Tab) 650 mg Q4H PRN PO pain/fever Last administered on 03/08/16 12:49; Admin Dose 650 MG; Start 03/01/16 at 01:00 Morphine Sulfate (morphine) 2 mg Q2H PRN IV pain Last administered on 03/19/16 01:55; Admin Dose 2 MG; Start 03/01/16 at 01:00 Miscellaneous Information 1 ea NOTE XX ; Start 03/01/16 at 02:00 Glucose (Glutose) 15 gm Q15M PRN PO DECREASED GLUCOSE; Start 03/01/16 at 02:00 Glucose (Glutose) 22.5 gm Q15M PRN PO DECREASED GLUCOSE; Start 03/01/16 at 02: 00 Dextrose (D50w Syringe) 25 ml Q15M PRN IV DECREASED GLUCOSE Last administered on 03/13/16at 13:36; Admin Dose 25 ML; Start 03/01/16 at 02:00 Dextrose (D50w Syringe) 50 ml Q15M PRN IV DECREASED GLUCOSE Last administered on 03/13/16at 12:30; Admin Dose 50 ML; Start 03/01/16 at 02:00 Glucagon (Glucagen) 1 mg Q15M PRN IM DECREASED GLUCOSE; Start 03/01/16 at 02: 00 Glucose (Glutose) 15 gm Q15M PRN BUCCAL DECREASED GLUCOSE; Start 03/01/16 at 02:00 Diagnostic Test (Pha) (Accucheck) 1 ea 02 XX Last administered on 03/22/16 01: 54; Admin Dose 1 EA; Start 03/02/16 at 02:00 Bisacodyl (Dulcolax Supp) 10 mg DAILY PRN [place] CONSTIPATION Last administered on 03/08/16at 23:47; Admin Dose 10 MG; Start 03/03/16 at 11:30 Clotrimazole (Lotrimin Cr) 1 applic BID TOP Last administered on 03/22/16 09:23 ; Admin Dose 1 APPLIC; Start 03/03/16 at 13:30 Ondansetron HCl (Zofran Inj) 4 mg Q4H PRN IV NAUSEA AND/OR VOMITING; Start at 23:30 Pantoprazole (Protonix Iv) 40 mg BID@06,18 IV Last administered on 03/22/16 05: 30; Admin Dose 40 MG; Start 03/10/16 at 06:00 Gabapentin (Neurontin) 300 mg Q8 GTB Last administered on 03/22/16 05:30; Admin Dose 300 MG; Start 03/13/16 at 06:00 Methylprednisolone Sodium Succinate 30 mg 30 mg DAILY IV Last administered on 09:08; Admin Dose 30 MG; Start 03/13/16 at 09:30 Meropenem/Sodium Chloride (Merrem/NS) 100 ml @ 200 mls/hr Q12 IVPB Last administered on 03/22/16 09:11; Admin Dose 200 MLS/HR; Start 03/13/16 at 17:00 Hydralazine HCl (Apresoline) 10 mg Q6H PRN IV SBP>160 Last administered on 01:28; Admin Dose 10 MG; Start 03/14/16 at 22:00 Clonidine HCl (Catapres-Tts 2 Patch) 1 patch Q7D TRANSDERM Last administered on 03/21/16 21:57; Admin Dose 1 PATCH; Start 03/14/16 at 22:00 Lubiprostone (Amitiza) 24 mcg BID PO Last administered on 03/22/16 01:35; Admin Dose 24 MCG; Start 03/15/16 at 16:00 Insulin Glargine (Lantus) 50 unit QHS SC Last administered on 03/21/16 22:01; Admin Dose 50 UNIT; Start 03/18/16 at 21:00 Insulin Aspart (Adult SC Insulin - Moder... Q6 SC Last administered on 05:32; Admin Dose 2 UNIT; Start 03/18/16 at 06:30 Vancomycin HCl 1.5 gm/Sodium Chloride 250 ml @ 83.333 mls/ hr Q24H IVPB Last administered on 03/21/16 12:22; Admin Dose 83.333 MLS/HR; Start 03/20/16 at 12:00 Dextrose/Sodium Chloride 1,000 ml @ 50 mls/hr Q20H IV Last administered on 03/22 05:30; Admin Dose 50 MLS/HR; Start 03/19/16 at 18:00 Fluconazole/ Sodium Chloride (Diflucan 100 Mg/ NS (Pmx)) 50 ml @ 50 mls/hr Q24H IVPB Last administered on 03/21/16 13:59; Admin Dose 50 MLS/HR; Start 03/21/16 at 13:00 Diltiazem HCl (Cardizem Iv) 5 mg Q4 IV Last administered on 03/22/16 09:08; Admin Dose 5 MG; Start 03/21/16 at 17:00 Docusate Sodium (Colace Liquid Cup) 100 mg BID PEG Last administered on 09:11; Admin Dose 100 MG; Start 03/22/16 at 09:00 Mycophenolate Mofetil (Cellcept) 500 mg BID PEG ; Start 03/22/16 at 09:00 Assessment/Plan Chief Complaint/Hosp Course 85 year old female with multiple medical issues currently admitted to the ICU for management of respiratory failure, afib with RVR, possible aspiration pneumonia, hypernatremia with persistent encephalopathy. CTH was done shows chronic microvascular changes, chronic lacunar infarcts. calcification along the tentorium, mild to moderate atrophy MRI Brain also showed chronic lacunar infarcts no acute pathology. T1 hyperintense lesion c/w epidermoid cyst, chronic microvascular changes. EEG: shows generalized slowing no epileptiform discharges c/w encephalopathy Dx: encephalopathy secondary to sepsis/ underlying metabolic issues Recommendations: -continue to avoid sedating meds, change pain meds to prn as mental status is now slowly improving -continue current medical management Problems: SRIKANTH REDDY MD Mar 22, 2016 11:21
--- NOTE | 2016-03-22 11:43 | CONS ---
Date/Time of Note Date/Time of Note DATE: 03/22/16 TIME: 11:35 Consult Date/Type/Reason Admit Date/Time Feb 29, 2016 at 18:54 Type of Consultation: Pulm Ordering Provider: KANCHAN LEONARD MD Subjective Remains comfortable. Post PEG tube placement Currently hemodynamically stable Objective Vital Signs Date Time Temp Pulse Resp B/P Pulse Ox O2 Delivery O2 Flow Rate FiO2 03/22/16 08:18 98 28 99 Nasal Cannula 1.0 03/22/16 08:00 137/66 03/22/16 07:00 98.0 Intake and Output 03/21/16 03/21/16 03/22/16 15:00 23:00 07:00 Intake Total 953.2 ml 701.6 ml 10 ml Output Total 545 ml 325 ml 265 ml Balance 408.2 ml 376.6 ml -255 ml GENERAL: Frail elderly lady confused. VITAL SIGNS: per chart NECK: Supple. No JVD or lymphadenopathy. CARDIAC EXAM: S1, S2. No added sounds or murmurs. CHEST: Diminished air entry bilaterally with rales ABDOMEN: Soft, nontender. No guarding or rebound. EXTREMITIES: No cyanosis, clubbing edema +1 NEUROLOGIC: Generalized weakness, not following commands Results/Medications Result Diagram: 03/22/16 0400 03/22/16 0400 Results 24 hrs Laboratory Tests Test 03/21/16 12:21 03/21/16 17:19 03/21/16 21:59 03/21/16 23:41 Bedside Glucose 175 189 176 195 Test 03/22/16 01:49 03/22/16 04:00 03/22/16 05:18 Bedside Glucose 177 175 Alanine Aminotransferase (ALT/SGPT) 37 Albumin 2.6 L Albumin/Globulin Ratio 1.30 Alkaline Phosphatase 64 Anion Gap 11 Anisocytosis 1+ Aspartate Amino Transf (AST/SGOT) 20 Band Neutrophils % 2.0 Basophils # Basophils % Blood Morphology Comment Blood Urea Nitrogen 43 H Calcium Level 7.9 L Carbon Dioxide Level 29 Chloride Level 105 Creatinine 0.80 Differential Comment MANUAL DIFF Direct Bilirubin 0.00 Eosinophils # Eosinophils % Globulin 2.00 Glucose Level 168 Hematocrit 32.3 L Hemoglobin 10.4 L Hypochromasia 2+ Indirect Bilirubin 0.3 Lymphocytes # 0.8 Lymphocytes % 7.0 L Magnesium Level 1.9 Mean Corpuscular Hemoglobin 26.8 L Mean Corpuscular Hemoglobin Concent 32.2 Mean Corpuscular Volume 83.4 Mean Platelet Volume 9.2 Monocytes # 0.7 Monocytes % 6.0 Neutrophils # 9.6 H Neutrophils % 85.0 H Nucleated Red Blood Cells # Nucleated Red Blood Cells % Ovalocytes RARE Phosphorus Level 4.1 Platelet Count 79 L Platelet Estimate PLT APPEAR DECREASED Potassium Level 4.1 Red Blood Count 3.88 L Red Cell Distribution Width 17.6 H Sodium Level 141 Total Bilirubin 0.3 Total Protein 4.6 L White Blood Count 11.3 H Medications Current Medications Brimonidine Tartrate (Alphagan 0.2%) 1 drop Q8 BOTH EYES Last administered on 05:30; Admin Dose 1 DROP; Start 03/01/16 at 06:00 Latanoprost (Xalatan) 1 drop QHS BOTH EYES Last administered on 03/21/16 21:57 ; Admin Dose 1 DROP; Start 03/01/16 at 21:00 Acetaminophen (Tylenol Tab) 650 mg Q4H PRN PO pain/fever Last administered on 03/08/16at 12:49; Admin Dose 650 MG; Start 03/01/16 at 01:00 Morphine Sulfate (morphine) 2 mg Q2H PRN IV pain Last administered on 03/19/16 01:55; Admin Dose 2 MG; Start 03/01/16 at 01:00 Miscellaneous Information 1 ea NOTE XX ; Start 03/01/16 at 02:00 Glucose (Glutose) 15 gm Q15M PRN PO DECREASED GLUCOSE; Start 03/01/16 at 02:00 Glucose (Glutose) 22.5 gm Q15M PRN PO DECREASED GLUCOSE; Start 03/01/16 at 02: 00 Dextrose (D50w Syringe) 25 ml Q15M PRN IV DECREASED GLUCOSE Last administered on 03/13/16at 13:36; Admin Dose 25 ML; Start 03/01/16 at 02:00 Dextrose (D50w Syringe) 50 ml Q15M PRN IV DECREASED GLUCOSE Last administered on 03/13/16at 12:30; Admin Dose 50 ML; Start 03/01/16 at 02:00 Glucagon (Glucagen) 1 mg Q15M PRN IM DECREASED GLUCOSE; Start 03/01/16 at 02: 00 Glucose (Glutose) 15 gm Q15M PRN BUCCAL DECREASED GLUCOSE; Start 03/01/16 at 02:00 Diagnostic Test (Pha) (Accucheck) 1 ea 02 XX Last administered on 03/22/16 01: 54; Admin Dose 1 EA; Start 03/02/16 at 02:00 Bisacodyl (Dulcolax Supp) 10 mg DAILY PRN [place] CONSTIPATION Last administered on 03/08/16at 23:47; Admin Dose 10 MG; Start 03/03/16 at 11:30 Clotrimazole (Lotrimin Cr) 1 applic BID TOP Last administered on 03/22/16 09:23 ; Admin Dose 1 APPLIC; Start 03/03/16 at 13:30 Ondansetron HCl (Zofran Inj) 4 mg Q4H PRN IV NAUSEA AND/OR VOMITING; Start at 23:30 Pantoprazole (Protonix Iv) 40 mg BID@06,18 IV Last administered on 03/22/16 05: 30; Admin Dose 40 MG; Start 03/10/16 at 06:00 Gabapentin (Neurontin) 300 mg Q8 GTB Last administered on 03/22/16 05:30; Admin Dose 300 MG; Start 03/13/16 at 06:00 Methylprednisolone Sodium Succinate 30 mg 30 mg DAILY IV Last administered on 09:08; Admin Dose 30 MG; Start 03/13/16 at 09:30 Meropenem/Sodium Chloride (Merrem/NS) 100 ml @ 200 mls/hr Q12 IVPB Last administered on 03/22/16 09:11; Admin Dose 200 MLS/HR; Start 03/13/16 at 17:00 Hydralazine HCl (Apresoline) 10 mg Q6H PRN IV SBP>160 Last administered on 01:28; Admin Dose 10 MG; Start 03/14/16 at 22:00 Clonidine HCl (Catapres-Tts 2 Patch) 1 patch Q7D TRANSDERM Last administered on 03/21/16 21:57; Admin Dose 1 PATCH; Start 03/14/16 at 22:00 Lubiprostone (Amitiza) 24 mcg BID PO Last administered on 03/22/16 01:35; Admin Dose 24 MCG; Start 03/15/16 at 16:00 Insulin Glargine (Lantus) 50 unit QHS SC Last administered on 03/21/16 22:01; Admin Dose 50 UNIT; Start 03/18/16 at 21:00 Insulin Aspart (Adult SC Insulin - Moder... Q6 SC Last administered on 05:32; Admin Dose 2 UNIT; Start 03/18/16 at 06:30 Vancomycin HCl 1.5 gm/Sodium Chloride 250 ml @ 83.333 mls/ hr Q24H IVPB Last administered on 03/21/16 12:22; Admin Dose 83.333 MLS/HR; Start 03/20/16 at 12:00 Dextrose/Sodium Chloride 1,000 ml @ 50 mls/hr Q20H IV Last administered on 03/22 05:30; Admin Dose 50 MLS/HR; Start 03/19/16 at 18:00 Fluconazole/ Sodium Chloride (Diflucan 100 Mg/ NS (Pmx)) 50 ml @ 50 mls/hr Q24H IVPB Last administered on 03/21/16 13:59; Admin Dose 50 MLS/HR; Start 03/21/16 at 13:00 Diltiazem HCl (Cardizem Iv) 5 mg Q4 IV Last administered on 03/22/16 09:08; Admin Dose 5 MG; Start 03/21/16 at 17:00 Docusate Sodium (Colace Liquid Cup) 100 mg BID PEG Last administered on 09:11; Admin Dose 100 MG; Start 03/22/16 at 09:00 Mycophenolate Mofetil (Cellcept) 500 mg BID PEG ; Start 03/22/16 at 09:00 Assessment/Plan Chief Complaint/Hosp Course IMPRESSION: An 85-year-old female with: 1. Acute hypoxemic respiratory failure. Significant aspiration component significant neuromuscular weakness. 2. Chronic obstructive pulmonary disease exacerbation. 3. Bronchitis. As above persistent leukocytosis 4. Hypernatremia. 5. History of diabetes. Poor Glycemic control exacerbated by steroids 6. History of hypertension. 7. Atrial fibrillation with rapid ventricular rate 8. Coronary artery disease. 9. Anemia status post endoscopy findings noted 10. 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 Deep suctioning. Aggressive pulmonary toilet. Keep nothing by mouth 2. Supplemental oxygen 3. Antibiotics. We will add vancomycin secondary to worsening WBC. Ct chest noted. chest PT left base. 4. Bronchodilators. 5. Noninvasive positive pressure ventilation if needed. 6. Speech therapy recommendations continue aspiration precautions 7. Rate control per cardiology 8. GI evaluation for anemia 9. Correction of hyponatremia and hypokalemia 10. Agree with stopping TPN continue PEG tube feeding 11. Neurology recommendations Prognosis guarded. Continue current care. Problems: SHIVA PERES MD, [facility] Mar 22, 2016 11:42
[2016-03-22] MEDS: MYCOPHENOLATE MOFETIL PEG SCH ×2 (12:05→20:25)
--- NOTE | 2016-03-22 12:43 | PN ---
DATE: 03/22/2016 SUBJECTIVE: No changes overnight. Patient is status post PEG yesterday. She is lying comfortably in bed, sounds congested, does not cough up secretions. No fevers. VITAL SIGNS: Temperature 98, pulse 98, respirations 26, blood pressure 137/66, saturation 99% on 1 liter, WBC 11.8, platelets 79, neutrophils 85, bands 2, lymphs 7, monos 6, BUN 43, creatinine 0.80. MICROBIOLOGY: Urine culture repeated on 03/19/2016 growing Cindy glabrata. INDWELLINGS: PICC line, Tong, PEG. ANTIMICROBIALS: 1. Fluconazole. 2. Vancomycin. 3. Meropenem. PHYSICAL EXAMINATION: GENERAL: This is an obese, chronically ill-appearing, elderly woman who is lethargic, in no distres s. HEENT: Head atraumatic, normocephalic. Sclerae anicteric. Buccal mucosa dry. NECK: Obese. CHEST: Rise symmetrical. Breath sounds with scattered crackles. HEART: S1, S2. ABDOMEN: Soft, bowel tones present. EXTREMITIES: Without cyanosis. ASSESSMENT: 1. Sepsis, resolving. 2. Acute respiratory failure secondary to secretion retention, possibly ongoing aspiration, sputum culture grew Escherichia coli. 3. Urinary tract infection. 4. Dysphagia, status post percutaneous endoscopic gastrostomy. 5. Acute renal failure, improved. 6. Thrombocytopenia, possibly secondary to vancomycin. 7. Paroxysmal atrial fibrillation. 8. Status post fecal impaction with chronic constipation. 9. History of disease, on immunosuppressive therapy. PLAN: The patient remains clinically unchanged. Tolerates tube feeding. No fevers. We are going to discontinue vancomycin and given progressive thrombocytopenia and change Diflucan to Voriconazole per G-tube. Follow chest x-ray. Continue aggressive pulmonary toilet, aspiration measures. Dictated By: LEÓN PAK QUEBRACHO TANNER for MIMI MOSER/NTS Conf#: [id number] DID#: [id number]
[2016-03-22] MEDS ORDERED: VORICONAZOLE 200 MG TAB PO SCH (13:00)
--- NOTE | 2016-03-22 14:05 | CONS ---
Date/Time of Note Date/Time of Note DATE: 03/22/16 TIME: 13:58 Assessment/Plan Assessment/Plan Additional Assessment/Plan Anemia - transfuse PRN hgb < 8 - if necessary for EGD and PEG placement, cardiology rate the endoscopic procedure as an intermediate risk 2. Tachycardia with atrial fibrillation. - cardiac stabilization 3. Constipation: resolving 4. Acute Respiratory failure, secondary to bronchitis/URI/pneumonia. Reported history of asthma. Immunosuppressed with CellCept chronically - management per primary and other consultants 5. Poor nutrition/protein calorie malnutrition - Status post EGD + PEG -Monitor tube feed every 6 hours, hold for residual >150 mL Further recommendations depend on clinical course Patient seen in collaboration with Dr. Zuniga Consultation Date/Type/Reason Admit Date/Time Feb 29, 2016 at 18:54 Initial Consult Date 03/08/16 Type of Consultation: Gastroenterology Reason for Consultation Dysphagia Referring Provider: KANCHAN LEONARD MD 24 HR Interval Summary Free Text/Dictation Status post EGD plus PEG, tube feed at 20 with minimal residual No BM 1 dose of mag citrate ordered Exam/Review of Systems Vital Signs Vitals Vital Signs Date Time Temp Pulse Resp B/P Pulse Ox O2 Delivery O2 Flow Rate FiO2 03/22/16 12:00 119 03/22/16 08:18 28 99 Nasal Cannula 1.0 03/22/16 08:00 137/66 03/22/16 07:00 98.0 Intake and Output 03/21/16 03/21/16 03/22/16 15:00 23:00 07:00 Intake Total 953.2 ml 701.6 ml 10 ml Output Total 545 ml 325 ml 265 ml Balance 408.2 ml 376.6 ml -255 ml Exam Psych: confusion Head: atraumatic, normocephalic Eyes: nl conjunctiva, nl lids, nl sclera ENMT: mucosa pink and moist, nl external ears & nose, nl lips & teeth, nl nasal mucosa & septum Neck: non-tender, supple Respiratory: clear to auscultation, normal air movement Cardiovascular: nl pulses, regular rate and rhythm Gastrointestinal: bowel sounds, non-tender, soft Results Result Diagram: 03/22/16 0400 03/22/16 0400 Results 24 hrs Laboratory Tests Test 03/21/16 17:19 03/21/16 21:59 03/21/16 23:41 03/22/16 01:49 Bedside Glucose 189 176 195 177 Test 03/22/16 04:00 03/22/16 05:18 03/22/16 11:00 03/22/16 12:57 Alanine Aminotransferase (ALT/SGPT) 37 Albumin 2.6 L Albumin/Globulin Ratio 1.30 Alkaline Phosphatase 64 Anion Gap 11 Anisocytosis 1+ Aspartate Amino Transf (AST/SGOT) 20 Band Neutrophils % 2.0 Basophils # Basophils % Blood Morphology Comment Blood Urea Nitrogen 43 H Calcium Level 7.9 L Carbon Dioxide Level 29 Chloride Level 105 Creatinine 0.80 Differential Comment MANUAL DIFF Direct Bilirubin 0.00 Eosinophils # Eosinophils % Globulin 2.00 Glucose Level 168 Hematocrit 32.3 L Hemoglobin 10.4 L Hypochromasia 2+ Indirect Bilirubin 0.3 Lymphocytes # 0.8 Lymphocytes % 7.0 L Magnesium Level 1.9 Mean Corpuscular Hemoglobin 26.8 L Mean Corpuscular Hemoglobin Concent 32.2 Mean Corpuscular Volume 83.4 Mean Platelet Volume 9.2 Monocytes # 0.7 Monocytes % 6.0 Neutrophils # 9.6 H Neutrophils % 85.0 H Nucleated Red Blood Cells # Nucleated Red Blood Cells % Ovalocytes RARE Phosphorus Level 4.1 Platelet Count 79 L Platelet Estimate PLT APPEAR DECREASED Potassium Level 4.1 Red Blood Count 3.88 L Red Cell Distribution Width 17.6 H Sodium Level 141 Total Bilirubin 0.3 Total Protein 4.6 L White Blood Count 11.3 H Bedside Glucose 175 108 Vancomycin Level Trough 18.4 Medications Medications Current Medications Brimonidine Tartrate (Alphagan 0.2%) 1 drop Q8 BOTH EYES Last administered on 05:30; Admin Dose 1 DROP; Start 03/01/16 at 06:00 Latanoprost (Xalatan) 1 drop QHS BOTH EYES Last administered on 03/21/16 21:57 ; Admin Dose 1 DROP; Start 03/01/16 at 21:00 Acetaminophen (Tylenol Tab) 650 mg Q4H PRN PO pain/fever Last administered on 03/08/16at 12:49; Admin Dose 650 MG; Start 03/01/16 at 01:00 Morphine Sulfate (morphine) 2 mg Q2H PRN IV pain Last administered on 03/19/16 01:55; Admin Dose 2 MG; Start 03/01/16 at 01:00 Miscellaneous Information 1 ea NOTE XX ; Start 03/01/16 at 02:00 Glucose (Glutose) 15 gm Q15M PRN PO DECREASED GLUCOSE; Start 03/01/16 at 02:00 Glucose (Glutose) 22.5 gm Q15M PRN PO DECREASED GLUCOSE; Start 03/01/16 at 02: 00 Dextrose (D50w Syringe) 25 ml Q15M PRN IV DECREASED GLUCOSE Last administered on 03/13/16at 13:36; Admin Dose 25 ML; Start 03/01/16 at 02:00 Dextrose (D50w Syringe) 50 ml Q15M PRN IV DECREASED GLUCOSE Last administered on 03/13/16at 12:30; Admin Dose 50 ML; Start 03/01/16 at 02:00 Glucagon (Glucagen) 1 mg Q15M PRN IM DECREASED GLUCOSE; Start 03/01/16 at 02: 00 Glucose (Glutose) 15 gm Q15M PRN BUCCAL DECREASED GLUCOSE; Start 03/01/16 at 02:00 Diagnostic Test (Pha) (Accucheck) 1 ea 02 XX Last administered on 03/22/16 01: 54; Admin Dose 1 EA; Start 03/02/16 at 02:00 Bisacodyl (Dulcolax Supp) 10 mg DAILY PRN [place] CONSTIPATION Last administered on 03/08/16at 23:47; Admin Dose 10 MG; Start 03/03/16 at 11:30 Clotrimazole (Lotrimin Cr) 1 applic BID TOP Last administered on 03/22/16 09:23 ; Admin Dose 1 APPLIC; Start 03/03/16 at 13:30 Ondansetron HCl (Zofran Inj) 4 mg Q4H PRN IV NAUSEA AND/OR VOMITING; Start at 23:30 Pantoprazole (Protonix Iv) 40 mg BID@06,18 IV Last administered on 03/22/16 05: 30; Admin Dose 40 MG; Start 03/10/16 at 06:00 Gabapentin (Neurontin) 300 mg Q8 GTB Last administered on 03/22/16 05:30; Admin Dose 300 MG; Start 03/13/16 at 06:00 Methylprednisolone Sodium Succinate 30 mg 30 mg DAILY IV Last administered on 09:08; Admin Dose 30 MG; Start 03/13/16 at 09:30 Meropenem/Sodium Chloride (Merrem/NS) 100 ml @ 200 mls/hr Q12 IVPB Last administered on 03/22/16 09:11; Admin Dose 200 MLS/HR; Start 03/13/16 at 17:00 Hydralazine HCl (Apresoline) 10 mg Q6H PRN IV SBP>160 Last administered on 01:28; Admin Dose 10 MG; Start 03/14/16 at 22:00 Clonidine HCl (Catapres-Tts 2 Patch) 1 patch Q7D TRANSDERM Last administered on 03/21/16 21:57; Admin Dose 1 PATCH; Start 03/14/16 at 22:00 Lubiprostone (Amitiza) 24 mcg BID PO Last administered on 03/22/16 01:35; Admin Dose 24 MCG; Start 03/15/16 at 16:00 Insulin Glargine (Lantus) 50 unit QHS SC Last administered on 03/21/16 22:01; Admin Dose 50 UNIT; Start 03/18/16 at 21:00 Insulin Aspart (Adult SC Insulin - Moder... Q6 SC Last administered on 05:32; Admin Dose 2 UNIT; Start 03/18/16 at 06:30 Dextrose/Sodium Chloride (D5-1/2ns) 1,000 ml @ 50 mls/hr Q20H IV Last administered on 03/22/16 05:30; Admin Dose 50 MLS/HR; Start 03/19/16 at 18:00 Diltiazem HCl (Cardizem Iv) 5 mg Q4 IV Last administered on 03/22/16 13:01; Admin Dose 5 MG; Start 03/21/16 at 17:00 Docusate Sodium (Colace Liquid Cup) 100 mg BID PEG Last administered on 09:11; Admin Dose 100 MG; Start 03/22/16 at 09:00 Mycophenolate Mofetil (Cellcept) 500 mg BID PEG Last administered on 03/22/16 12:05; Admin Dose 500 MG; Start 03/22/16 at 09:00 Voriconazole (Voriconazole) 200 mg BID GTB ; Start 03/22/16 at 21:00 TR AMES Mar 22, 2016 14:05
[2016-03-22] MEDS ORDERED: MAGNESIUM CITRATE 300 ML BTL PO ONE (16:00)
--- NOTE | 2016-03-22 16:21 | CONS ---
Date/Time of Note Date/Time of Note DATE: 03/22/16 TIME: 16:18 Assessment/Plan Assessment/Plan Additional Assessment/Plan Atrial fibrillation Respiratory failure Preserved ejection fraction Possible aspiration pneumonia Hypertension Anemia -Patient status post PEG, would switch Cardizem to via the PEG. Antibiotics as per infectious disease colleagues. Anticoagulation on hold secondary to possible recent GI bleed and anemia. Consultation Date/Type/Reason Admit Date/Time Feb 29, 2016 at 18:54 Initial Consult Date 03/17/16 Type of Consultation: cv Referring Provider: KANCHAN LEONARD MD 24 HR Interval Summary Free Text/Dictation Patient status post PEG placement, heart rate is still labile Exam/Review of Systems Vital Signs Vitals Vital Signs Date Time Temp Pulse Resp B/P Pulse Ox O2 Delivery O2 Flow Rate FiO2 03/22/16 16:00 97.7 131 30 124/57 98 Nasal Cannula 03/22/16 15:15 1.0 Intake and Output 03/21/16 03/21/16 03/22/16 15:00 23:00 07:00 Intake Total 953.2 ml 701.6 ml 10 ml Output Total 545 ml 325 ml 265 ml Balance 408.2 ml 376.6 ml -255 ml Exam Awake, no apparent distress, family at bedside Head: normocephalic Neck: supple Respiratory: other (course breath sounds bilaterally, no wheezing) Cardiovascular: irregular rhythm, other (S1 and S2 heard), regular rate and rhythm Gastrointestinal: bowel sounds, non-tender, soft Extremities: edema Results Result Diagram: 03/22/16 0400 03/22/16 0400 Results 24 hrs Laboratory Tests Test 03/21/16 17:19 03/21/16 21:59 03/21/16 23:41 03/22/16 01:49 Bedside Glucose 189 176 195 177 Test 03/22/16 04:00 03/22/16 05:18 03/22/16 11:00 03/22/16 12:57 Alanine Aminotransferase (ALT/SGPT) 37 Albumin 2.6 L Albumin/Globulin Ratio 1.30 Alkaline Phosphatase 64 Anion Gap 11 Anisocytosis 1+ Aspartate Amino Transf (AST/SGOT) 20 Band Neutrophils % 2.0 Basophils # Basophils % Blood Morphology Comment Blood Urea Nitrogen 43 H Calcium Level 7.9 L Carbon Dioxide Level 29 Chloride Level 105 Creatinine 0.80 Differential Comment MANUAL DIFF Direct Bilirubin 0.00 Eosinophils # Eosinophils % Globulin 2.00 Glucose Level 168 Hematocrit 32.3 L Hemoglobin 10.4 L Hypochromasia 2+ Indirect Bilirubin 0.3 Lymphocytes # 0.8 Lymphocytes % 7.0 L Magnesium Level 1.9 Mean Corpuscular Hemoglobin 26.8 L Mean Corpuscular Hemoglobin Concent 32.2 Mean Corpuscular Volume 83.4 Mean Platelet Volume 9.2 Monocytes # 0.7 Monocytes % 6.0 Neutrophils # 9.6 H Neutrophils % 85.0 H Nucleated Red Blood Cells # Nucleated Red Blood Cells % Ovalocytes RARE Phosphorus Level 4.1 Platelet Count 79 L Platelet Estimate PLT APPEAR DECREASED Potassium Level 4.1 Red Blood Count 3.88 L Red Cell Distribution Width 17.6 H Sodium Level 141 Total Bilirubin 0.3 Total Protein 4.6 L White Blood Count 11.3 H Bedside Glucose 175 108 Vancomycin Level Trough 18.4 Medications Medications Current Medications Brimonidine Tartrate (Alphagan 0.2%) 1 drop Q8 BOTH EYES Last administered on 15:49; Admin Dose 1 DROP; Start 03/01/16 at 06:00 Latanoprost (Xalatan) 1 drop QHS BOTH EYES Last administered on 03/21/16 21:57 ; Admin Dose 1 DROP; Start 03/01/16 at 21:00 Acetaminophen (Tylenol Tab) 650 mg Q4H PRN PO pain/fever Last administered on 03/08/16at 12:49; Admin Dose 650 MG; Start 03/01/16 at 01:00 Morphine Sulfate (morphine) 2 mg Q2H PRN IV pain Last administered on 03/19/16 01:55; Admin Dose 2 MG; Start 03/01/16 at 01:00 Miscellaneous Information 1 ea NOTE XX ; Start 03/01/16 at 02:00 Glucose (Glutose) 15 gm Q15M PRN PO DECREASED GLUCOSE; Start 03/01/16 at 02:00 Glucose (Glutose) 22.5 gm Q15M PRN PO DECREASED GLUCOSE; Start 03/01/16 at 02: 00 Dextrose (D50w Syringe) 25 ml Q15M PRN IV DECREASED GLUCOSE Last administered on 03/13/16at 13:36; Admin Dose 25 ML; Start 03/01/16 at 02:00 Dextrose (D50w Syringe) 50 ml Q15M PRN IV DECREASED GLUCOSE Last administered on 03/13/16at 12:30; Admin Dose 50 ML; Start 03/01/16 at 02:00 Glucagon (Glucagen) 1 mg Q15M PRN IM DECREASED GLUCOSE; Start 03/01/16 at 02: 00 Glucose (Glutose) 15 gm Q15M PRN BUCCAL DECREASED GLUCOSE; Start 03/01/16 at 02:00 Diagnostic Test (Pha) (Accucheck) 1 ea 02 XX Last administered on 03/22/16 01: 54; Admin Dose 1 EA; Start 03/02/16 at 02:00 Bisacodyl (Dulcolax Supp) 10 mg DAILY PRN [place] CONSTIPATION Last administered on 03/08/16at 23:47; Admin Dose 10 MG; Start 03/03/16 at 11:30 Clotrimazole (Lotrimin Cr) 1 applic BID TOP Last administered on 03/22/16 09:23 ; Admin Dose 1 APPLIC; Start 03/03/16 at 13:30 Ondansetron HCl (Zofran Inj) 4 mg Q4H PRN IV NAUSEA AND/OR VOMITING; Start at 23:30 Pantoprazole (Protonix Iv) 40 mg BID@06,18 IV Last administered on 03/22/16 05: 30; Admin Dose 40 MG; Start 03/10/16 at 06:00 Gabapentin (Neurontin) 300 mg Q8 GTB Last administered on 03/22/16 15:49; Admin Dose 300 MG; Start 03/13/16 at 06:00 Methylprednisolone Sodium Succinate 30 mg 30 mg DAILY IV Last administered on 09:08; Admin Dose 30 MG; Start 03/13/16 at 09:30 Meropenem/Sodium Chloride (Merrem/NS) 100 ml @ 200 mls/hr Q12 IVPB Last administered on 03/22/16 09:11; Admin Dose 200 MLS/HR; Start 03/13/16 at 17:00 Hydralazine HCl (Apresoline) 10 mg Q6H PRN IV SBP>160 Last administered on 01:28; Admin Dose 10 MG; Start 03/14/16 at 22:00 Clonidine HCl (Catapres-Tts 2 Patch) 1 patch Q7D TRANSDERM Last administered on 03/21/16 21:57; Admin Dose 1 PATCH; Start 03/14/16 at 22:00 Insulin Glargine (Lantus) 50 unit QHS SC Last administered on 03/21/16 22:01; Admin Dose 50 UNIT; Start 03/18/16 at 21:00 Insulin Aspart (Adult SC Insulin - Moder... Q6 SC Last administered on 05:32; Admin Dose 2 UNIT; Start 03/18/16 at 06:30 Dextrose/Sodium Chloride (D5-1/2ns) 1,000 ml @ 50 mls/hr Q20H IV Last administered on 03/22/16 05:30; Admin Dose 50 MLS/HR; Start 03/19/16 at 18:00 Diltiazem HCl (Cardizem Iv) 5 mg Q4 IV Last administered on 03/22/16 13:01; Admin Dose 5 MG; Start 03/21/16 at 17:00 Docusate Sodium (Colace Liquid Cup) 100 mg BID PEG Last administered on 09:11; Admin Dose 100 MG; Start 03/22/16 at 09:00 Mycophenolate Mofetil (Cellcept) 500 mg BID PEG Last administered on 03/22/16 12:05; Admin Dose 500 MG; Start 03/22/16 at 09:00 Voriconazole (Voriconazole) 200 mg BID GTB ; Start 03/22/16 at 21:00 Polyethylene Glycol (Miralax) 17 gm TID GTB ; Start 03/22/16 at 21:00 Simone Carmen DO Mar 22, 2016 16:21
[2016-03-22] MEDS: DILTIAZEM 30 MG TAB PO SCH ×2 (18:53→23:51)
[2016-03-22] MEDS: LATANOPROST 0.005% 2.5 ML OPH BOTH EYES SCH (20:25)
[2016-03-22] MEDS: POLYETHYLENE GLYCOL 17 GM PACKET GTB SCH (20:25)
[2016-03-22] MEDS: VORICONAZOLE GTB SCH (20:25)
[2016-03-22] MEDS: INSULIN GLARGINE [LANtus] 3 ML PEN SC SCH (20:47)
[2016-03-23] VITALS (19 sets, daily range): BP systolic 61–143; BP diastolic 38–63; PULSE 74–115; RESP 18–30
[2016-03-23] MEDS: ALBUTEROL/IPRATROPIUM (NEB) 3 ML AMP HHN SCH ×4 (01:00→20:06)
[2016-03-23] MEDS: DEXTROSE 5%-0.45% NACL 1,000 ML IV SCH (01:11)
[2016-03-23] MEDS: ACCUCHECK AT 2AM (Patients on SS coverage) XX SCH (02:00)
[2016-03-23] MEDS ORDERED: SOD CHLORIDE 0.9% 500 ML IV ONE (04:00)
[2016-03-23] MEDS: Insulin NOVOLOG SS MODERATE Algorithm(NPO/TPN/ENTERAL FEEDS) SC SCH ×3 (06:00→18:00)
[2016-03-23 06:22] LABS: PHOSPHORUS 4.4 mg/dl (2.5-4.9)
[2016-03-23 06:23] LABS: ALBUMIN 2.4 g/dl (3.3-4.9); POTASSIUM 4.2 mmol/L (3.5-5.1)
[2016-03-23 06:24] LABS: HEMATOCRIT 31.3 % (37.0-47.0); HEMOGLOBIN 10.4 g/dl (12.0-16.0); MEAN CORPUSCULAR HEMOGLOBIN 27.7 pg (29.0-33.0); MEAN CORPUSCULAR HGB CONC 33.1 g/dl (32.0-37.0); MEAN CORPUSCULAR VOLUME 83.8 fl (82.0-101.0); MEAN PLATELET VOLUME 9.8 fl (7.4-10.4); PLATELET COUNT 73 10^3/UL (140-440); RED BLOOD COUNT 3.74 10^6/ul (4.20-5.40); RED CELL DISTRIBUTION WIDTH 17.1 % (11.5-14.5); UNCORRECTED WBC 11.4 10^3/ul (4.8-10.8); WHITE BLOOD COUNT 11.4 10^3/ul (4.8-10.8)
[2016-03-23 06:25] LABS: BILIRUBIN,INDIRECT 0.3 mg/dl (0-1.1); BILIRUBIN,TOTAL 0.3 mg/dl (0.2-1.3); CREATININE 0.91 mg/dl (0.44-1.00)
[2016-03-23 06:26] LABS: ALBUMIN/GLOBULIN RATIO 1.14; TOTAL PROTEIN 4.5 g/dl (6.1-8.1)
[2016-03-23 06:27] LABS: CALCIUM 7.5 mg/dl (8.4-10.2)
[2016-03-23 06:33] LABS: CONDITION 1; LH ANALYZER COMMENTS 1
[2016-03-23] MEDS: GABAPENTIN 300 MG CAP GTB SCH ×3 (06:49→22:43)
[2016-03-23] MEDS: PANTOPRAZOLE 40 MG INJ IV SCH ×2 (06:49→17:40)
[2016-03-23] MEDS: BRIMONIDINE 0.2% 5 ML BTL BOTH EYES SCH ×3 (06:50→22:43)
[2016-03-23] MEDS: DILTIAZEM 30 MG TAB PO SCH ×3 (07:01→17:42)
[2016-03-23] MEDS: POLYETHYLENE GLYCOL 17 GM PACKET GTB SCH ×3 (08:40→20:53)
[2016-03-23] MEDS: METHYLPREDNISOLONE 40 MG INJ IV SCH (08:40)
[2016-03-23] MEDS: VORICONAZOLE GTB SCH ×2 (08:40→20:53)
[2016-03-23] MEDS: MEROPENEM 500 MG in SOD CHLORIDE 0.9% 100 ML IVPB SCH ×2 (08:44→23:34)
[2016-03-23] MEDS: DOCUSATE SODIUM 10 MG/ML (10ML CUP) PEG SCH ×2 (08:44→20:53)
[2016-03-23] MEDS: CLOTRIMAZOLE 1% 30 GM CR TOP SCH ×2 (08:44→20:54)
[2016-03-23] MEDS: MYCOPHENOLATE MOFETIL PEG SCH ×2 (08:44→20:53)
[2016-03-23 09:28] LABS: LYMPHOCYTES # 0.5 10^3/ul (0.8-2.9); MONOCYTE # 0.1 10^3/ul (0.3-0.9); NEUTROPHIL # 10.7 10^3/ul (1.6-7.5)
--- NOTE | 2016-03-23 10:09 | PN ---
Date/Time of Note Date/Time of Note DATE: 03/23/16 TIME: 09:42 Assessment/Plan VTE Prophylaxis VTE Prophylaxis Intervention: SCD's Lines/Catheters IV Catheter Type (from Nrsg): PICC Line Central line still needed: Yes (for IV access ) Urinary Cath still in place: Yes Reason Cath still needed: other (indicate) (monitor UOP ) Assessment/Plan Assessment/Plan 85 yo female with: 1. Respiratory distress and insufficiency, much improved now and on [address] head negative, MRI Brain with no acute findings, CT chest stable. Fentanyl patch removed and Ativan discontinued per Neurology and absolutely appropriately so. WBC down to 11.4 and still on steroids and IV abx, patient with known immunosuppression Still on Aspiration protocol, Continue meropenem per ID and also on Vancomycin She failed bedside speech swallow and now s/p EGD and PEG tube placement Continue resp care and titration of steroids down 2. Constipation improved overall, likely secondary to her hyperglycemia and Fentanyl patch use. Previous CT abd/pelvis showed no evidence of abdominopelvic mass, lymphadenopathy or focal acute inflammatory pathology. FOB was positive but Hb now stable. Again no BM for a few days, GI aware and now that PEG tube placed, getting bowel regimen via PEG EGD with no source of bleeding per Dr Zuniga so will eventually need Colonoscopy. 3. Atrial fibrillation with episodes of RVR, better controlled now and back on Cardizem. Renal function back to normal now Hold Eliquis given ? GI bleeding and may need colonoscopy to r/o possible source of bleeding prior to resuming K and Mag stable 4. JUAN with known CKD: Renal function back to baseline and even more improved Uremia resolved. 5. Anemia, acute: s/p 2 units pRBC on 03/16, Hb stable at 10.4 today and has remained stable over past few days, no acute GIB noted and EGD with no source of bleeding, only mild esophagitis reported EGD today Platelets down to 79 today, monitor closely and will have to hold of cath lg and also will review antibiotic regimen with ID, patient has been off anticoagulation prior to decrease in platelet count. 6. Diabetes Mellitus: D/c TPN and starting tube feeding already today, adjust Lantus and SSI accordingly. 7. Hypertension. Continue Cardizem and titrate accordingly, start losartan 25 mg po bid, hold for SBP<110 and add clonidine prn 8. Pemphigoid disease per family: on Cellcept. 9. Chronic Pain: on fentanyl patch, I have approached the family to d/c fentanyl patch as probably part of cause of bowel issues but they have been reluctant/resistant. Given now issues with MS, agree with Neurology to just d/c if need be we can resume at lower dose of 25 or 50 mcg 10 Nutrition: D/c TPN today and started tube feeding to be adjusted by dietary today Continue IVF for now . 11. UTI: E coli and now Cindy Glabrata, will discuss with ID may need to change antifungal to Voriconazole, will also need to change Tong Prophylaxis: Holding Eliquis for now due to current concerns about GI bleeding. SCDs. Protonix for GI prophylaxis Disposition: Case d/w with care team in ICU, and patient care representative at bedside. Subjective 24 Hr Interval Summary Free Text/Dictation Patient doing better on 1L NC and good sats Labs stable S/p PEG tube placement and tolerating tube feeding Afebrile Exam/Review of Systems Vital Signs Vitals Vital Signs Date Time Temp Pulse Resp B/P Pulse Ox O2 Delivery O2 Flow Rate FiO2 03/23/16 09:00 98 25 100/46 98 Nasal Cannula 03/23/16 08:10 1.0 03/23/16 08:00 97.8 Intake and Output 03/22/16 03/22/16 03/23/16 15:00 23:00 07:00 Intake Total 630 ml 340 ml 1335 ml Output Total 390 ml 300 ml 180 ml Balance 240 ml 40 ml 1155 ml Exam Constitutional: alert, frail, obese, oriented Respiratory: clear to auscultation, diminished breath sounds (bases ) Cardiovascular: irregular rhythm (a fib ) Gastrointestinal: non-tender, soft Extremities: normal pulses, other (no edema, clubbing or cyanosis ) Neurological: LABOR ECONOMIST II-XII intact, nl mental status, nl speech, other ( generalised weakness ) Results Result Diagram: 03/23/16 0547 03/23/1647 Results 24 hrs Laboratory Tests Test 03/22/16 11:00 03/22/16 12:57 03/22/16 18:34 03/22/16 20:45 Vancomycin Level Trough 18.4 Bedside Glucose 108 116 137 Test 03/22/16 23:54 03/23/16 02:10 03/23/16 05:47 03/23/16 06:47 Bedside Glucose 143 128 128 Alanine Aminotransferase (ALT/SGPT) 47 Albumin 2.4 L Albumin/Globulin Ratio 1.14 Alkaline Phosphatase 64 Anion Gap 11 Aspartate Amino Transf (AST/SGOT) 26 Band Neutrophils % 1.0 Blood Morphology Comment Blood Urea Nitrogen 46 H Calcium Level 7.5 L Carbon Dioxide Level 28 Chloride Level 104 Creatinine 0.91 Differential Comment MANUAL DIFF Direct Bilirubin 0.00 Globulin 2.10 Glucose Level 127 # Hematocrit 31.3 L Hemoglobin 10.4 L Indirect Bilirubin 0.3 Lymphocytes # 0.5 L Lymphocytes % 4.0 L Magnesium Level 3.0 H Mean Corpuscular Hemoglobin 27.7 L Mean Corpuscular Hemoglobin Concent 33.1 Mean Corpuscular Volume 83.8 Mean Platelet Volume 9.8 Monocytes # 0.1 L Monocytes % 1.0 Neutrophils # 10.7 H Neutrophils % 94.0 H Phosphorus Level 4.4 Platelet Count 73 L Potassium Level 4.2 Red Blood Count 3.74 L Red Cell Distribution Width 17.1 H Sodium Level 139 Total Bilirubin 0.3 Total Protein 4.5 L White Blood Count 11.4 H Medications Medications Current Medications Brimonidine Tartrate (Alphagan 0.2%) 1 drop Q8 BOTH EYES Last administered on 06:50; Admin Dose 1 DROP; Start 03/01/16 at 06:00 Latanoprost (Xalatan) 1 drop QHS BOTH EYES Last administered on 03/22/16 20:25 ; Admin Dose 1 DROP; Start 03/01/16 at 21:00 Acetaminophen (Tylenol Tab) 650 mg Q4H PRN PO pain/fever Last administered on 03/08/16at 12:49; Admin Dose 650 MG; Start 03/01/16 at 01:00 Morphine Sulfate (morphine) 2 mg Q2H PRN IV pain Last administered on 03/19/16 01:55; Admin Dose 2 MG; Start 03/01/16 at 01:00 Miscellaneous Information 1 ea NOTE XX ; Start 03/01/16 at 02:00 Glucose (Glutose) 15 gm Q15M PRN PO DECREASED GLUCOSE; Start 03/01/16 at 02:00 Glucose (Glutose) 22.5 gm Q15M PRN PO DECREASED GLUCOSE; Start 03/01/16 at 02: 00 Dextrose (D50w Syringe) 25 ml Q15M PRN IV DECREASED GLUCOSE Last administered on 03/13/16at 13:36; Admin Dose 25 ML; Start 03/01/16 at 02:00 Dextrose (D50w Syringe) 50 ml Q15M PRN IV DECREASED GLUCOSE Last administered on 03/13/16at 12:30; Admin Dose 50 ML; Start 03/01/16 at 02:00 Glucagon (Glucagen) 1 mg Q15M PRN IM DECREASED GLUCOSE; Start 03/01/16 at 02: 00 Glucose (Glutose) 15 gm Q15M PRN BUCCAL DECREASED GLUCOSE; Start 03/01/16 at 02:00 Diagnostic Test (Pha) (Accucheck) 1 ea 02 XX Last administered on 03/22/16 01: 54; Admin Dose 1 EA; Start 03/02/16 at 02:00 Bisacodyl (Dulcolax Supp) 10 mg DAILY PRN [place] CONSTIPATION Last administered on 03/08/16at 23:47; Admin Dose 10 MG; Start 03/03/16 at 11:30 Clotrimazole (Lotrimin Cr) 1 applic BID TOP Last administered on 03/23/16 08:44 ; Admin Dose 1 APPLIC; Start 03/03/16 at 13:30 Ondansetron HCl (Zofran Inj) 4 mg Q4H PRN IV NAUSEA AND/OR VOMITING; Start at 23:30 Pantoprazole (Protonix Iv) 40 mg BID@06,18 IV Last administered on 03/23/16 06: 49; Admin Dose 40 MG; Start 03/10/16 at 06:00 Gabapentin (Neurontin) 300 mg Q8 GTB Last administered on 03/23/16 06:49; Admin Dose 300 MG; Start 03/13/16 at 06:00 Methylprednisolone Sodium Succinate 30 mg 30 mg DAILY IV Last administered on 08:40; Admin Dose 30 MG; Start 03/13/16 at 09:30 Meropenem/Sodium Chloride (Merrem/NS) 100 ml @ 200 mls/hr Q12 IVPB Last administered on 03/23/16 08:44; Admin Dose 200 MLS/HR; Start 03/13/16 at 17:00 Hydralazine HCl (Apresoline) 10 mg Q6H PRN IV SBP>160 Last administered on 01:28; Admin Dose 10 MG; Start 03/14/16 at 22:00 Clonidine HCl (Catapres-Tts 2 Patch) 1 patch Q7D TRANSDERM Last administered on 03/21/16 21:57; Admin Dose 1 PATCH; Start 03/14/16 at 22:00 Insulin Glargine (Lantus) 50 unit QHS SC Last administered on 03/22/16 20:47; Admin Dose 50 UNIT; Start 03/18/16 at 21:00 Insulin Aspart (Adult SC Insulin - Moder... Q6 SC Last administered on 23:56; Admin Dose 2 UNIT; Start 03/18/16 at 06:30 Dextrose/Sodium Chloride (D5-1/2ns) 1,000 ml @ 50 mls/hr Q20H IV Last administered on 03/23/16 01:11; Admin Dose 50 MLS/HR; Start 03/19/16 at 18:00 Docusate Sodium (Colace Liquid Cup) 100 mg BID PEG Last administered on 08:44; Admin Dose 100 MG; Start 03/22/16 at 09:00 Mycophenolate Mofetil (Cellcept) 500 mg BID PEG Last administered on 03/23/16 08:44; Admin Dose 500 MG; Start 03/22/16 at 09:00 Voriconazole (Voriconazole) 200 mg BID GTB Last administered on 03/23/16 08:40 ; Admin Dose 200 MG; Start 03/22/16 at 21:00 Polyethylene Glycol (Miralax) 17 gm TID GTB Last administered on 03/23/16 08:40 ; Admin Dose 17 GM; Start 03/22/16 at 21:00 Diltiazem HCl (Cardizem) 30 mg Q6 PO Last administered on 03/23/16 07:01; Admin Dose 30 MG; Start 03/22/16 at 18:00 AISHA TINEO Mar 23, 2016 09:52
--- NOTE | 2016-03-23 10:56 | CONS ---
Date/Time of Note Date/Time of Note DATE: 03/23/16 TIME: 10:53 Consult Date/Type/Reason Admit Date/Time Feb 29, 2016 at 18:54 Type of Consultation: pulmonary Ordering Provider: KANCHAN LEONARD MD Subjective Patient stable no new events Status post PEG tube placement No respiratory distress Still confused Objective Vital Signs Date Time Temp Pulse Resp B/P Pulse Ox O2 Delivery O2 Flow Rate FiO2 03/23/16 09:00 98 25 100/46 98 Nasal Cannula 03/23/16 08:10 1.0 03/23/16 08:00 97.8 Intake and Output 03/22/16 03/22/16 03/23/16 15:00 23:00 07:00 Intake Total 630 ml 340 ml 1335 ml Output Total 390 ml 300 ml 180 ml Balance 240 ml 40 ml 1155 ml GENERAL: Frail elderly lady confused. No respiratory distress VITAL SIGNS: per chart NECK: Supple. No JVD or lymphadenopathy. CARDIAC EXAM: S1, S2. No added sounds or murmurs. CHEST: Diminished air entry bilaterally no added sounds ABDOMEN: Soft, nontender. No guarding or rebound. EXTREMITIES: No cyanosis, clubbing edema +1 NEUROLOGIC: Generalized weakness, not following commands Results/Medications Result Diagram: 03/23/16 0547 03/23/16 0547 Results 24 hrs Laboratory Tests Test 03/22/16 11:00 03/22/16 12:57 03/22/16 18:34 03/22/16 20:45 Vancomycin Level Trough 18.4 Bedside Glucose 108 116 137 Test 03/22/16 23:54 03/23/16 02:10 03/23/16 05:47 03/23/16 06:47 Bedside Glucose 143 128 128 Alanine Aminotransferase (ALT/SGPT) 47 Albumin 2.4 L Albumin/Globulin Ratio 1.14 Alkaline Phosphatase 64 Anion Gap 11 Aspartate Amino Transf (AST/SGOT) 26 Band Neutrophils % 1.0 Blood Morphology Comment Blood Urea Nitrogen 46 H Calcium Level 7.5 L Carbon Dioxide Level 28 Chloride Level 104 Creatinine 0.91 Differential Comment MANUAL DIFF Direct Bilirubin 0.00 Globulin 2.10 Glucose Level 127 # Hematocrit 31.3 L Hemoglobin 10.4 L Indirect Bilirubin 0.3 Lymphocytes # 0.5 L Lymphocytes % 4.0 L Magnesium Level 3.0 H Mean Corpuscular Hemoglobin 27.7 L Mean Corpuscular Hemoglobin Concent 33.1 Mean Corpuscular Volume 83.8 Mean Platelet Volume 9.8 Monocytes # 0.1 L Monocytes % 1.0 Neutrophils # 10.7 H Neutrophils % 94.0 H Phosphorus Level 4.4 Platelet Count 73 L Potassium Level 4.2 Red Blood Count 3.74 L Red Cell Distribution Width 17.1 H Sodium Level 139 Total Bilirubin 0.3 Total Protein 4.5 L White Blood Count 11.4 H Medications Current Medications Brimonidine Tartrate (Alphagan 0.2%) 1 drop Q8 BOTH EYES Last administered on 06:50; Admin Dose 1 DROP; Start 03/01/16 at 06:00 Latanoprost (Xalatan) 1 drop QHS BOTH EYES Last administered on 03/22/16 20:25 ; Admin Dose 1 DROP; Start 03/01/16 at 21:00 Acetaminophen (Tylenol Tab) 650 mg Q4H PRN PO pain/fever Last administered on 03/08/16 12:49; Admin Dose 650 MG; Start 03/01/16 at 01:00 Morphine Sulfate (morphine) 2 mg Q2H PRN IV pain Last administered on 03/19/16 01:55; Admin Dose 2 MG; Start 03/01/16 at 01:00 Miscellaneous Information 1 ea NOTE XX ; Start 03/01/16 at 02:00 Glucose (Glutose) 15 gm Q15M PRN PO DECREASED GLUCOSE; Start 03/01/16 at 02:00 Glucose (Glutose) 22.5 gm Q15M PRN PO DECREASED GLUCOSE; Start 03/01/16 at 02: 00 Dextrose (D50w Syringe) 25 ml Q15M PRN IV DECREASED GLUCOSE Last administered on 03/13/16at 13:36; Admin Dose 25 ML; Start 03/01/16 at 02:00 Dextrose (D50w Syringe) 50 ml Q15M PRN IV DECREASED GLUCOSE Last administered on 03/13/16at 12:30; Admin Dose 50 ML; Start 03/01/16 at 02:00 Glucagon (Glucagen) 1 mg Q15M PRN IM DECREASED GLUCOSE; Start 03/01/16 at 02: 00 Glucose (Glutose) 15 gm Q15M PRN BUCCAL DECREASED GLUCOSE; Start 03/01/16 at 02:00 Diagnostic Test (Pha) (Accucheck) 1 ea 02 XX Last administered on 03/22/16 01: 54; Admin Dose 1 EA; Start 03/02/16 at 02:00 Bisacodyl (Dulcolax Supp) 10 mg DAILY PRN [place] CONSTIPATION Last administered on 03/08/16at 23:47; Admin Dose 10 MG; Start 03/03/16 at 11:30 Clotrimazole (Lotrimin Cr) 1 applic BID TOP Last administered on 03/23/16 08:44 ; Admin Dose 1 APPLIC; Start 03/03/16 at 13:30 Ondansetron HCl (Zofran Inj) 4 mg Q4H PRN IV NAUSEA AND/OR VOMITING; Start at 23:30 Pantoprazole (Protonix Iv) 40 mg BID@06,18 IV Last administered on 03/23/16 06: 49; Admin Dose 40 MG; Start 03/10/16 at 06:00 Gabapentin (Neurontin) 300 mg Q8 GTB Last administered on 03/23/16 06:49; Admin Dose 300 MG; Start 03/13/16 at 06:00 Methylprednisolone Sodium Succinate 30 mg 30 mg DAILY IV Last administered on 08:40; Admin Dose 30 MG; Start 03/13/16 at 09:30 Meropenem/Sodium Chloride (Merrem/NS) 100 ml @ 200 mls/hr Q12 IVPB Last administered on 03/23/16 08:44; Admin Dose 200 MLS/HR; Start 03/13/16 at 17:00 Hydralazine HCl (Apresoline) 10 mg Q6H PRN IV SBP>160 Last administered on 01:28; Admin Dose 10 MG; Start 03/14/16 at 22:00 Clonidine HCl (Catapres-Tts 2 Patch) 1 patch Q7D TRANSDERM Last administered on 03/21/16 21:57; Admin Dose 1 PATCH; Start 03/14/16 at 22:00 Insulin Glargine (Lantus) 50 unit QHS SC Last administered on 03/22/16 20:47; Admin Dose 50 UNIT; Start 03/18/16 at 21:00 Insulin Aspart (Novolog Insulin Pen) (Adult SC Insulin - Moder... Q6 SC Last administered on 03/22/16 23:56; Admin Dose 2 UNIT; Start 03/18/16 at 06:30 Docusate Sodium (Colace Liquid Cup) 100 mg BID PEG Last administered on 08:44; Admin Dose 100 MG; Start 03/22/16 at 09:00 Mycophenolate Mofetil (Cellcept) 500 mg BID PEG Last administered on 03/23/16 08:44; Admin Dose 500 MG; Start 03/22/16 at 09:00 Voriconazole (Voriconazole) 200 mg BID GTB Last administered on 03/23/16 08:40 ; Admin Dose 200 MG; Start 03/22/16 at 21:00 Polyethylene Glycol (Miralax) 17 gm TID GTB Last administered on 03/23/16 08:40 ; Admin Dose 17 GM; Start 03/22/16 at 21:00 Diltiazem HCl (Cardizem) 30 mg Q6 PO Last administered on 03/23/16 07:01; Admin Dose 30 MG; Start 03/22/16 at 18:00 Assessment/Plan Chief Complaint/Hosp Course IMPRESSION: An 85-year-old female with: 1. Acute hypoxemic respiratory failure. Significant aspiration component significant neuromuscular weakness. 2. Left lower lobe pneumonia 3. Status post significant Hypernatremia. 4. Diabetes exacerbated by intravenous steroids 5. History of hypertension. 6. Atrial fibrillation with rapid ventricular rate 7. History of Coronary artery disease. 8. Anemia status post endoscopy findings noted. No active bleeding 9. 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 Encephalopathy likely toxic metabolic no significant findings on MRI RECOMMENDATIONS: 1. Continue pulmonary toilet 2. Supplemental oxygen 3. Continue current antibiotics and chest PT 4. Bronchodilators. 5. Noninvasive positive pressure ventilation if needed. 6. Speech therapy recommendations continue aspiration precautions 7. Rate control per cardiology 8. Gastrostomy tube feeding as tolerated 9. Neurology recommendations Consider transfer to telemetry front bed Continue current care. Problems: SHIVA PERES MD, [facility] Mar 23, 2016 10:56
--- NOTE | 2016-03-23 11:37 | CONS ---
Date/Time of Note Date/Time of Note DATE: 03/23/16 TIME: 11:32 Assessment/Plan Assessment/Plan Additional Assessment/Plan Atrial fibrillation Respiratory failure Preserved ejection fraction Possible aspiration pneumonia Hypertension Anemia -Patient with inconsistent blood pressure readings. Clonidine patch has been removed, continue Cardizem via the PEG for heart rate control. If blood pressure able to tolerate, would give a dose of diuretics today. Restart anticoagulation when okay by our GI colleagues. Consultation Date/Type/Reason Admit Date/Time Feb 29, 2016 at 18:54 Initial Consult Date 03/17/16 Type of Consultation: cv Referring Provider: KANCHAN LEONARD MD 24 HR Interval Summary Free Text/Dictation Patient seen and examined, more awake today Exam/Review of Systems Vital Signs Vitals Vital Signs Date Time Temp Pulse Resp B/P Pulse Ox O2 Delivery O2 Flow Rate FiO2 03/23/16 09:00 98 25 100/46 98 Nasal Cannula 03/23/16 08:10 1.0 03/23/16 08:00 97.8 Intake and Output 03/22/16 03/22/16 03/23/16 15:00 23:00 07:00 Intake Total 630 ml 340 ml 1335 ml Output Total 390 ml 300 ml 180 ml Balance 240 ml 40 ml 1155 ml Exam No apparent distress Constitutional: alert Head: normocephalic Respiratory: other (course breath sounds bilaterally with minimal scattered rhonchi) Cardiovascular: irregular rhythm, other (S1 and S2 heard) Gastrointestinal: bowel sounds, non-tender, soft Extremities: edema Results Result Diagram: 03/23/16 0547 03/23/16 0547 Results 24 hrs Laboratory Tests Test 03/22/16 12:57 03/22/16 18:34 03/22/16 20:45 03/22/16 23:54 Bedside Glucose 108 116 137 143 Test 03/23/16 02:10 03/23/16 05:47 03/23/16 06:47 Bedside Glucose 128 128 Alanine Aminotransferase (ALT/SGPT) 47 Albumin 2.4 L Albumin/Globulin Ratio 1.14 Alkaline Phosphatase 64 Anion Gap 11 Aspartate Amino Transf (AST/SGOT) 26 Band Neutrophils % 1.0 Blood Morphology Comment Blood Urea Nitrogen 46 H Calcium Level 7.5 L Carbon Dioxide Level 28 Chloride Level 104 Creatinine 0.91 Differential Comment MANUAL DIFF Direct Bilirubin 0.00 Globulin 2.10 Glucose Level 127 # Hematocrit 31.3 L Hemoglobin 10.4 L Indirect Bilirubin 0.3 Lymphocytes # 0.5 L Lymphocytes % 4.0 L Magnesium Level 3.0 H Mean Corpuscular Hemoglobin 27.7 L Mean Corpuscular Hemoglobin Concent 33.1 Mean Corpuscular Volume 83.8 Mean Platelet Volume 9.8 Monocytes # 0.1 L Monocytes % 1.0 Neutrophils # 10.7 H Neutrophils % 94.0 H Phosphorus Level 4.4 Platelet Count 73 L Potassium Level 4.2 Red Blood Count 3.74 L Red Cell Distribution Width 17.1 H Sodium Level 139 Total Bilirubin 0.3 Total Protein 4.5 L White Blood Count 11.4 H Medications Medications Current Medications Brimonidine Tartrate (Alphagan 0.2%) 1 drop Q8 BOTH EYES Last administered on 06:50; Admin Dose 1 DROP; Start 03/01/16 at 06:00 Latanoprost (Xalatan) 1 drop QHS BOTH EYES Last administered on 03/22/16 20:25 ; Admin Dose 1 DROP; Start 03/01/16 at 21:00 Acetaminophen (Tylenol Tab) 650 mg Q4H PRN PO pain/fever Last administered on 03/08/16at 12:49; Admin Dose 650 MG; Start 03/01/16 at 01:00 Morphine Sulfate (morphine) 2 mg Q2H PRN IV pain Last administered on 03/19/16 01:55; Admin Dose 2 MG; Start 03/01/16 at 01:00 Miscellaneous Information 1 ea NOTE XX ; Start 03/01/16 at 02:00 Glucose (Glutose) 15 gm Q15M PRN PO DECREASED GLUCOSE; Start 03/01/16 at 02:00 Glucose (Glutose) 22.5 gm Q15M PRN PO DECREASED GLUCOSE; Start 03/01/16 at 02: 00 Dextrose (D50w Syringe) 25 ml Q15M PRN IV DECREASED GLUCOSE Last administered on 03/13/16at 13:36; Admin Dose 25 ML; Start 03/01/16 at 02:00 Dextrose (D50w Syringe) 50 ml Q15M PRN IV DECREASED GLUCOSE Last administered on 03/13/16at 12:30; Admin Dose 50 ML; Start 03/01/16 at 02:00 Glucagon (Glucagen) 1 mg Q15M PRN IM DECREASED GLUCOSE; Start 03/01/16 at 02: 00 Glucose (Glutose) 15 gm Q15M PRN BUCCAL DECREASED GLUCOSE; Start 03/01/16 at 02:00 Diagnostic Test (Pha) (Accucheck) 1 ea 02 XX Last administered on 03/22/16 01: 54; Admin Dose 1 EA; Start 03/02/16 at 02:00 Bisacodyl (Dulcolax Supp) 10 mg DAILY PRN [place] CONSTIPATION Last administered on 03/08/16at 23:47; Admin Dose 10 MG; Start 03/03/16 at 11:30 Clotrimazole (Lotrimin Cr) 1 applic BID TOP Last administered on 03/23/16 08:44 ; Admin Dose 1 APPLIC; Start 03/03/16 at 13:30 Ondansetron HCl (Zofran Inj) 4 mg Q4H PRN IV NAUSEA AND/OR VOMITING; Start at 23:30 Pantoprazole (Protonix Iv) 40 mg BID@06,18 IV Last administered on 03/23/16 06: 49; Admin Dose 40 MG; Start 03/10/16 at 06:00 Gabapentin (Neurontin) 300 mg Q8 GTB Last administered on 03/23/16 06:49; Admin Dose 300 MG; Start 03/13/16 at 06:00 Methylprednisolone Sodium Succinate 30 mg 30 mg DAILY IV Last administered on 08:40; Admin Dose 30 MG; Start 03/13/16 at 09:30 Meropenem/Sodium Chloride (Merrem/NS) 100 ml @ 200 mls/hr Q12 IVPB Last administered on 03/23/16 08:44; Admin Dose 200 MLS/HR; Start 03/13/16 at 17:00 Hydralazine HCl (Apresoline) 10 mg Q6H PRN IV SBP>160 Last administered on 01:28; Admin Dose 10 MG; Start 03/14/16 at 22:00 Insulin Glargine (Lantus) 50 unit QHS SC Last administered on 03/22/16 20:47; Admin Dose 50 UNIT; Start 03/18/16 at 21:00 Insulin Aspart (Novolog Insulin Pen) (Adult SC Insulin - Moder... Q6 SC Last administered on 03/22/16 23:56; Admin Dose 2 UNIT; Start 03/18/16 at 06:30 Docusate Sodium (Colace Liquid Cup) 100 mg BID PEG Last administered on 08:44; Admin Dose 100 MG; Start 03/22/16 at 09:00 Mycophenolate Mofetil (Cellcept) 500 mg BID PEG Last administered on 03/23/16 08:44; Admin Dose 500 MG; Start 03/22/16 at 09:00 Voriconazole (Voriconazole) 200 mg BID GTB Last administered on 03/23/16 08:40 ; Admin Dose 200 MG; Start 03/22/16 at 21:00 Polyethylene Glycol (Miralax) 17 gm TID GTB Last administered on 03/23/16 08:40 ; Admin Dose 17 GM; Start 03/22/16 at 21:00 Diltiazem HCl (Cardizem) 30 mg Q6 PO Last administered on 03/23/16 07:01; Admin Dose 30 MG; Start 03/22/16 at 18:00 Losartan Potassium (Cozaar) 25 mg BID PEG ; Start 03/24/16 at 09:00; Status UNV Clonidine (Catapres) 0.1 mg Q8 PRN PEG ELEVATED BLOOD PRESSURE; Start 03/23/16 at 11:30; Status UNV Simone Carmen DO Mar 23, 2016 11:37
--- NOTE | 2016-03-23 11:44 | CONS ---
Date/Time of Note Date/Time of Note DATE: 03/23/16 TIME: 11:41 Consult Date/Type/Reason Admit Date/Time Feb 29, 2016 at 18:54 Initial Consult Date 03/08/16 Type of Consultation: ID Ordering Provider: KANCHAN LEONARD MD Subjective awake, denies pain, feels good, nad, no fevers Objective Vital Signs Date Time Temp Pulse Resp B/P Pulse Ox O2 Delivery O2 Flow Rate FiO2 03/23/16 09:00 98 25 100/46 98 Nasal Cannula 03/23/16 08:10 1.0 03/23/16 08:00 97.8 Intake and Output 03/22/16 03/22/16 03/23/16 14:59 22:59 06:59 Intake Total 630 ml 320 ml 1335 ml Output Total 380 ml 330 ml 210 ml Balance 250 ml -10 ml 1125 ml Results/Medications Result Diagram: 03/23/16 0547 03/23/16 0547 Results 24 hrs Laboratory Tests Test 03/22/16 12:57 03/22/16 18:34 03/22/16 20:45 03/22/16 23:54 Bedside Glucose 108 116 137 143 Test 03/23/16 02:10 03/23/16 05:47 03/23/16 06:47 Bedside Glucose 128 128 Alanine Aminotransferase (ALT/SGPT) 47 Albumin 2.4 L Albumin/Globulin Ratio 1.14 Alkaline Phosphatase 64 Anion Gap 11 Aspartate Amino Transf (AST/SGOT) 26 Band Neutrophils % 1.0 Blood Morphology Comment Blood Urea Nitrogen 46 H Calcium Level 7.5 L Carbon Dioxide Level 28 Chloride Level 104 Creatinine 0.91 Differential Comment MANUAL DIFF Direct Bilirubin 0.00 Globulin 2.10 Glucose Level 127 # Hematocrit 31.3 L Hemoglobin 10.4 L Indirect Bilirubin 0.3 Lymphocytes # 0.5 L Lymphocytes % 4.0 L Magnesium Level 3.0 H Mean Corpuscular Hemoglobin 27.7 L Mean Corpuscular Hemoglobin Concent 33.1 Mean Corpuscular Volume 83.8 Mean Platelet Volume 9.8 Monocytes # 0.1 L Monocytes % 1.0 Neutrophils # 10.7 H Neutrophils % 94.0 H Phosphorus Level 4.4 Platelet Count 73 L Potassium Level 4.2 Red Blood Count 3.74 L Red Cell Distribution Width 17.1 H Sodium Level 139 Total Bilirubin 0.3 Total Protein 4.5 L White Blood Count 11.4 H Medications Current Medications Brimonidine Tartrate (Alphagan 0.2%) 1 drop Q8 BOTH EYES Last administered on 06:50; Admin Dose 1 DROP; Start 03/01/16 at 06:00 Latanoprost (Xalatan) 1 drop QHS BOTH EYES Last administered on 03/22/16 20:25 ; Admin Dose 1 DROP; Start 03/01/16 at 21:00 Acetaminophen (Tylenol Tab) 650 mg Q4H PRN PO pain/fever Last administered on 03/08/16 12:49; Admin Dose 650 MG; Start 03/01/16 at 01:00 Morphine Sulfate (morphine) 2 mg Q2H PRN IV pain Last administered on 03/19/16 01:55; Admin Dose 2 MG; Start 03/01/16 at 01:00 Miscellaneous Information 1 ea NOTE XX ; Start 03/01/16 at 02:00 Glucose (Glutose) 15 gm Q15M PRN PO DECREASED GLUCOSE; Start 03/01/16 at 02:00 Glucose (Glutose) 22.5 gm Q15M PRN PO DECREASED GLUCOSE; Start 03/01/16 at 02: 00 Dextrose (D50w Syringe) 25 ml Q15M PRN IV DECREASED GLUCOSE Last administered on 03/13/16at 13:36; Admin Dose 25 ML; Start 03/01/16 at 02:00 Dextrose (D50w Syringe) 50 ml Q15M PRN IV DECREASED GLUCOSE Last administered on 03/13/16at 12:30; Admin Dose 50 ML; Start 03/01/16 at 02:00 Glucagon (Glucagen) 1 mg Q15M PRN IM DECREASED GLUCOSE; Start 03/01/16 at 02: 00 Glucose (Glutose) 15 gm Q15M PRN BUCCAL DECREASED GLUCOSE; Start 03/01/16 at 02:00 Diagnostic Test (Pha) (Accucheck) 1 ea 02 XX Last administered on 03/22/16 01: 54; Admin Dose 1 EA; Start 03/02/16 at 02:00 Bisacodyl (Dulcolax Supp) 10 mg DAILY PRN [place] CONSTIPATION Last administered on 03/08/16at 23:47; Admin Dose 10 MG; Start 03/03/16 at 11:30 Clotrimazole (Lotrimin Cr) 1 applic BID TOP Last administered on 03/23/16 08:44 ; Admin Dose 1 APPLIC; Start 03/03/16 at 13:30 Ondansetron HCl (Zofran Inj) 4 mg Q4H PRN IV NAUSEA AND/OR VOMITING; Start at 23:30 Pantoprazole (Protonix Iv) 40 mg BID@06,18 IV Last administered on 03/23/16 06: 49; Admin Dose 40 MG; Start 03/10/16 at 06:00 Gabapentin (Neurontin) 300 mg Q8 GTB Last administered on 03/23/16 06:49; Admin Dose 300 MG; Start 03/13/16 at 06:00 Methylprednisolone Sodium Succinate 30 mg 30 mg DAILY IV Last administered on 08:40; Admin Dose 30 MG; Start 03/13/16 at 09:30 Meropenem/Sodium Chloride (Merrem/NS) 100 ml @ 200 mls/hr Q12 IVPB Last administered on 03/23/16 08:44; Admin Dose 200 MLS/HR; Start 03/13/16 at 17:00 Hydralazine HCl (Apresoline) 10 mg Q6H PRN IV SBP>160 Last administered on 01:28; Admin Dose 10 MG; Start 03/14/16 at 22:00 Insulin Glargine (Lantus) 50 unit QHS SC Last administered on 03/22/16 20:47; Admin Dose 50 UNIT; Start 03/18/16 at 21:00 Insulin Aspart (Novolog Insulin Pen) (Adult SC Insulin - Moder... Q6 SC Last administered on 03/22/16 23:56; Admin Dose 2 UNIT; Start 03/18/16 at 06:30 Docusate Sodium (Colace Liquid Cup) 100 mg BID PEG Last administered on 08:44; Admin Dose 100 MG; Start 03/22/16 at 09:00 Mycophenolate Mofetil (Cellcept) 500 mg BID PEG Last administered on 03/23/16 08:44; Admin Dose 500 MG; Start 03/22/16 at 09:00 Voriconazole (Voriconazole) 200 mg BID GTB Last administered on 03/23/16 08:40 ; Admin Dose 200 MG; Start 03/22/16 at 21:00 Polyethylene Glycol (Miralax) 17 gm TID GTB Last administered on 03/23/16 08:40 ; Admin Dose 17 GM; Start 03/22/16 at 21:00 Diltiazem HCl (Cardizem) 30 mg Q6 PO Last administered on 03/23/16 07:01; Admin Dose 30 MG; Start 03/22/16 at 18:00 Losartan Potassium (Cozaar) 25 mg BID PEG ; Start 03/23/16 at 21:00 Clonidine (Catapres) 0.1 mg Q8H PRN PEG SBP GREATER THAN 160; Start 03/23/16 at 11:30 Furosemide (Lasix) 20 mg ONCE ONCE IV ; Start 03/23/16 at 12:00; Stop 03/23/16 at 12:01; Status UNV Assessment/Plan Chief Complaint/Hosp Course MICROBIOLOGY: Urine culture repeated on 03/19/2016 growing Cindy glabrata. INDWELLINGS: PICC line, Tong, PEG. ANTIMICROBIALS: 1. Vfend 2. Meropenem. PHYSICAL EXAMINATION: GENERAL: This is an obese, chronically ill-appearing, elderly woman who is awake, in no distress. HEENT: Head atraumatic, normocephalic. Sclerae anicteric. Buccal mucosa dry. NECK: Obese. CHEST: Rise symmetrical. Breath sounds CTA, slightly diminished to bases. HEART: S1, S2. ABDOMEN: Soft, bowel tones present. EXTREMITIES: Without cyanosis. ASSESSMENT: 1. Sepsis, resolving. 2. S/p acute respiratory failure secondary to secretion retention, possibly ongoing aspiration, sputum culture grew Escherichia coli. 3. Urinary tract infection. 4. Dysphagia, status post percutaneous endoscopic gastrostomy. 5. Acute renal failure, improved. 6. Thrombocytopenia, possibly secondary to vancomycin. 7. Paroxysmal atrial fibrillation. 8. Status post fecal impaction with chronic constipation. 9. 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 PLAN: Improving. Tolerates tube feeding. No fevers. Continue abx, aggressive pulmonary toilet, aspiration measures. DW staff DW rail manager at bedside Problems: LEÓN PAK NP Mar 23, 2016 11:44
[2016-03-23] MEDS ORDERED: FUROSEMIDE 20 MG INJ IV ONE (12:00)
[2016-03-23] MEDS: LATANOPROST 0.005% 2.5 ML OPH BOTH EYES SCH (20:52)
[2016-03-23] MEDS: LOSARTAN 25 MG TAB PEG SCH (20:54)
[2016-03-23] MEDS: INSULIN GLARGINE [LANtus] 3 ML PEN SC SCH (21:21)
[2016-03-24] VITALS (13 sets, daily range): BP systolic 112–153; BP diastolic 53–63; PULSE 88–150; RESP 18–21
[2016-03-24] MEDS: DILTIAZEM 30 MG TAB PO SCH ×3 (00:02→12:05)
[2016-03-24] MEDS: Insulin NOVOLOG SS MODERATE Algorithm(NPO/TPN/ENTERAL FEEDS) SC SCH ×4 (00:17→18:43)
[2016-03-24] MEDS: ALBUTEROL/IPRATROPIUM (NEB) 3 ML AMP HHN SCH ×4 (02:05→20:43)
[2016-03-24] MEDS: ACCUCHECK AT 2AM (Patients on SS coverage) XX SCH (02:35)
[2016-03-24] MEDS: GABAPENTIN 300 MG CAP GTB SCH ×3 (05:22→21:13)
[2016-03-24] MEDS: PANTOPRAZOLE 40 MG INJ IV SCH ×2 (05:22→18:37)
[2016-03-24] MEDS: BRIMONIDINE 0.2% 5 ML BTL BOTH EYES SCH ×3 (06:16→21:15)
--- NOTE | 2016-03-24 06:27 | PN ---
Date/Time of Note Date/Time of Note DATE: 03/24/16 TIME: 06:25 Assessment/Plan VTE Prophylaxis VTE Prophylaxis Intervention: SCD's Lines/Catheters IV Catheter Type (from Nrsg): PICC Line Central line still needed: No Urinary Cath still in place: Yes Reason Cath still needed: urinary retention Assessment/Plan Assessment/Plan Atrial fibrillation Respiratory failure Preserved ejection fraction Possible aspiration pneumonia Hypertension Anemia Azotermia continue Cardizem via the PEG for heart rate control. - Restart anticoagulation when okay by our GI colleagues. -prn lasix Subjective 24 Hr Interval Summary Free Text/Dictation The patient with no cahnge Exam/Review of Systems Vital Signs Vitals Vital Signs Date Time Temp Pulse Resp B/P Pulse Ox O2 Delivery O2 Flow Rate FiO2 03/24/16 04:37 100 03/24/16 04:00 98.0 18 123/53 97 03/24/16 02:09 1.0 03/24/16 02:05 Nasal Cannula 03/23/16 20:06 25 Intake and Output 03/23/16 03/23/16 03/24/16 15:00 23:00 07:00 Intake Total 1010 ml 200 ml 1000 ml Output Total 430 ml 275 ml 400 ml Balance 580 ml -75 ml 600 ml Results Result Diagram: 03/23/16 0547 03/23/16 0547 Results 24 hrs Laboratory Tests Test 03/23/16 06:47 03/23/16 12:53 03/23/16 17:49 03/23/16 21:10 Bedside Glucose 128 156 178 215 Test 03/24/16 00:01 03/24/16 02:26 03/24/16 05:21 Bedside Glucose 193 180 197 Medications Medications Current Medications Brimonidine Tartrate (Alphagan 0.2%) 1 drop Q8 BOTH EYES Last administered on 06:16; Admin Dose 1 DROP; Start 03/01/16 at 06:00 Latanoprost (Xalatan) 1 drop QHS BOTH EYES Last administered on 03/22/16 20:25 ; Admin Dose 1 DROP; Start 03/01/16 at 21:00 Acetaminophen (Tylenol Tab) 650 mg Q4H PRN PO pain/fever Last administered on 03/08/16at 12:49; Admin Dose 650 MG; Start 03/01/16 at 01:00 Morphine Sulfate (morphine) 2 mg Q2H PRN IV pain Last administered on 03/19/16 01:55; Admin Dose 2 MG; Start 03/01/16 at 01:00 Miscellaneous Information 1 ea NOTE XX ; Start 03/01/16 at 02:00 Glucose (Glutose) 15 gm Q15M PRN PO DECREASED GLUCOSE; Start 03/01/16 at 02:00 Glucose (Glutose) 22.5 gm Q15M PRN PO DECREASED GLUCOSE; Start 03/01/16 at 02: 00 Dextrose (D50w Syringe) 25 ml Q15M PRN IV DECREASED GLUCOSE Last administered on 03/13/16at 13:36; Admin Dose 25 ML; Start 03/01/16 at 02:00 Dextrose (D50w Syringe) 50 ml Q15M PRN IV DECREASED GLUCOSE Last administered on 03/13/16at 12:30; Admin Dose 50 ML; Start 03/01/16 at 02:00 Glucagon (Glucagen) 1 mg Q15M PRN IM DECREASED GLUCOSE; Start 03/01/16 at 02: 00 Glucose (Glutose) 15 gm Q15M PRN BUCCAL DECREASED GLUCOSE; Start 03/01/16 at 02:00 Diagnostic Test (Pha) (Accucheck) 1 ea 02 XX Last administered on 03/24/16 02: 35; Admin Dose 1 EA; Start 03/02/16 at 02:00 Bisacodyl (Dulcolax Supp) 10 mg DAILY PRN [place] CONSTIPATION Last administered on 03/08/16at 23:47; Admin Dose 10 MG; Start 03/03/16 at 11:30 Clotrimazole (Lotrimin Cr) 1 applic BID TOP Last administered on 03/23/16 20:54 ; Admin Dose 1 APPLIC; Start 03/03/16 at 13:30 Ondansetron HCl (Zofran Inj) 4 mg Q4H PRN IV NAUSEA AND/OR VOMITING; Start at 23:30 Pantoprazole (Protonix Iv) 40 mg BID@06,18 IV Last administered on 03/24/16 05: 22; Admin Dose 40 MG; Start 03/10/16 at 06:00 Gabapentin (Neurontin) 300 mg Q8 GTB Last administered on 03/24/16 05:22; Admin Dose 300 MG; Start 03/13/16 at 06:00 Methylprednisolone Sodium Succinate 30 mg 30 mg DAILY IV Last administered on 08:40; Admin Dose 30 MG; Start 03/13/16 at 09:30 Meropenem/Sodium Chloride (Merrem/NS) 100 ml @ 200 mls/hr Q12 IVPB Last administered on 03/23/16 23:34; Admin Dose 200 MLS/HR; Start 03/13/16 at 17:00 Hydralazine HCl (Apresoline) 10 mg Q6H PRN IV SBP>160 Last administered on 01:28; Admin Dose 10 MG; Start 03/14/16 at 22:00 Insulin Glargine (Lantus) 50 unit QHS SC Last administered on 03/23/16 21:21; Admin Dose 50 UNIT; Start 03/18/16 at 21:00 Insulin Aspart (Novolog Insulin Pen) (Adult SC Insulin - Moder... Q6 SC Last administered on 03/24/16 05:56; Admin Dose 4 UNIT; Start 03/18/16 at 06:30 Docusate Sodium (Colace Liquid Cup) 100 mg BID PEG Last administered on 20:53; Admin Dose 100 MG; Start 03/22/16 at 09:00 Mycophenolate Mofetil (Cellcept) 500 mg BID PEG Last administered on 03/23/16 20:53; Admin Dose 500 MG; Start 03/22/16 at 09:00 Voriconazole (Voriconazole) 200 mg BID GTB Last administered on 03/23/16 20:53 ; Admin Dose 200 MG; Start 03/22/16 at 21:00 Polyethylene Glycol (Miralax) 17 gm TID GTB Last administered on 03/23/16 20:53 ; Admin Dose 17 GM; Start 03/22/16 at 21:00 Diltiazem HCl (Cardizem) 30 mg Q6 PO Last administered on 03/24/16 05:23; Admin Dose 30 MG; Start 03/22/16 at 18:00 Losartan Potassium (Cozaar) 25 mg BID PEG Last administered on 03/23/16 20:54; Admin Dose 25 MG; Start 03/23/16 at 21:00 Clonidine (Catapres) 0.1 mg Q8H PRN PEG SBP GREATER THAN 160; Start 03/23/16 at 11:30 FELICIA LINN MD Mar 24, 2016 06:27
[2016-03-24 06:56] LABS: HEMATOCRIT 30.6 % (37.0-47.0); HEMOGLOBIN 9.9 g/dl (12.0-16.0); LYMPHOCYTES # 0.1 10^3/ul (0.8-2.9); LYMPHOCYTES % 1.4 % (15.0-51.0); MEAN CORPUSCULAR HEMOGLOBIN 27.4 pg (29.0-33.0); MEAN CORPUSCULAR HGB CONC 32.5 g/dl (32.0-37.0); MEAN CORPUSCULAR VOLUME 84.4 fl (82.0-101.0); MONOCYTE # 0.4 10^3/ul (0.3-0.9); MONOCYTES % 4.8 % (0.0-11.0); NEUTROPHIL # 8.8 10^3/ul (1.6-7.5); NEUTROPHILS % 93.8 % (39.0-77.0); PLATELET COUNT 75 10^3/UL (140-440); RED BLOOD COUNT 3.62 10^6/ul (4.20-5.40); RED CELL DISTRIBUTION WIDTH 16.7 % (11.5-14.5); UNCORRECTED WBC 9.4 10^3/ul (4.8-10.8); WHITE BLOOD COUNT 9.4 10^3/ul (4.8-10.8)
[2016-03-24 06:57] LABS: CONDITION 1; LH ANALYZER COMMENTS 1; SUSPECT 1
[2016-03-24 07:00] LABS: MAGNESIUM 2.7 mg/dl (1.7-2.5); PHOSPHORUS 4.1 mg/dl (2.5-4.9)
[2016-03-24 07:10] LABS: ALBUMIN 2.3 g/dl (3.3-4.9)
[2016-03-24 07:13] LABS: BILIRUBIN,INDIRECT 0.1 mg/dl (0-1.1); BILIRUBIN,TOTAL 0.1 mg/dl (0.2-1.3); TOTAL PROTEIN 4.6 g/dl (6.1-8.1)
[2016-03-24 07:14] LABS: CALCIUM 7.7 mg/dl (8.4-10.2)
[2016-03-24 07:18] LABS: THYROID STIMULATING HORMONE 0.964 MIU/L (0.465-4.680)
[2016-03-24] MEDS: POLYETHYLENE GLYCOL 17 GM PACKET GTB SCH ×3 (09:35→21:00)
[2016-03-24] MEDS: VORICONAZOLE GTB SCH ×2 (09:36→21:13)
[2016-03-24] MEDS: METHYLPREDNISOLONE 40 MG INJ IV SCH (09:36)
[2016-03-24] MEDS: MYCOPHENOLATE MOFETIL PEG SCH ×2 (09:36→21:00)
[2016-03-24] MEDS: DOCUSATE SODIUM 10 MG/ML (10ML CUP) PEG SCH ×2 (09:36→21:00)
[2016-03-24] MEDS: LOSARTAN 25 MG TAB PEG SCH ×2 (09:37→21:06)
[2016-03-24] MEDS: CLOTRIMAZOLE 1% 30 GM CR TOP SCH ×2 (09:37→21:06)
--- NOTE | 2016-03-24 10:39 | GILP ---
DATE OF PROCEDURE: 03/21/2016 DATE: 03/21/2016 NAME OF PROCEDURE: Esophagogastroduodenoscopy with percutaneous endoscopic gastrostomy. SURGEON: Verónica Zuniga MD. PREOPERATIVE DIAGNOSIS(ES) ____ POSTOPERATIVE DIAGNOSIS(ES) ____ HISTORY AND INDICATIONS: The patient with aspiration pneumonia, also episode of significant anemia, possible gastrointestinal bleeding. PREMEDICATION: Monitored anesthesia care by anesthesiologist. INSTRUMENT: Olympus panendoscope. TECHNIQUE: After informed consent, with the patient and/or family members understanding the procedur e, its indications, potential risks and complications, including but not limited to: allergic reacti on, bleeding, perforation, infection or leakage, and after all pertinent questions were answered to the patient and/or family members satisfaction, the patient and/or family member signed witnessed in formed consent. Following this, premedication was administered slowly IV push, under careful cardiovascular and resp iratory monitoring with pulse oximetry, blood pressure and monitor car operator. Once the sedative effect was achieved the patient was place in the supine position, the panendoscope was introduced and advanced under visual guidance. Careful examination of the upper gastrointestinal tract, on insertion as well as withdrawal of the i nstrument disclosed the following findings: ESOPHAGUS: There is mild erythema and edema of the mucosa of the distal esophagus. STOMACH: Upon entrance to the stomach air was insufflated, the gastric garrido distended normally. The mucosa of the fundus, body and antrum of the stomach was carefully examined both head-on and on ret roflexion, and shows no abnormalities. There is no evidence of gastritis, ulcers or neoplasm. PYLORUS: The pylorus appears patent and within normal limits, with no evidence of gastric outlet obs truction. DUODENUM: The duodenal mucosa was carefully examined in the duodenal bulb as well as the second port ion of the duodenum and appears unremarkable with no evidence of duodenitis, ulcer or neoplasm. The instrument was then brought back to the stomach and the anterior wall mid-body was identified by transillumination and "finger indentation", this area was then marked in the anterior wall of the a bdomen, it was cleansed with Betadine and infiltrated with Xylocaine 1%. Following this a trocar nee dle was introduced into the gastric lumen under visual control with the endoscope, once in the gastr ic lumen a guide wire was advanced and secured with a polypectomy snare, at this point the endoscope was withdrawn bringing the guide wire out through the patients mouth. Following this a gastrostomy tube was introduced over the guide wire, with the Sacks-Vinne technique without difficulty, a small incision was performed in the skin to allow easy passage of the G-tube, once the position of the gas trostomy tube was confirmed, the external stopper and connectors were installed, and a clean dressin g applied. The patient tolerated the procedure well and was transferred out of the endoscopy suite awake, and i n good condition to continue recovery under observation, feedings will started in the next 12-24h an d gastrostomy care will be instituted. A 20-Canadian gastrostomy tube was utilized. IMPRESSION: 1. Mild distal esophagitis. 2. Uneventful percutaneous endoscopic gastrostomy tube placement with placement of 20-Canadian gastro stomy tube with no incident or complication. PLAN: The patient will be continued on PPIs. Feedings will be started in the next 24 hours. Furth er recommendation will depend on the patient's clinical course. Dictated By: VERÓNICA GUNN Conf#: [id number] DID#: [id number]
[2016-03-24] MEDS: MEROPENEM 500 MG in SOD CHLORIDE 0.9% 100 ML IVPB SCH ×2 (10:51→20:59)
--- NOTE | 2016-03-24 11:14 | CONS ---
Date/Time of Note Date/Time of Note DATE: 03/24/16 TIME: 11:10 Assessment/Plan Assessment/Plan Additional Assessment/Plan Anemia - transfuse PRN hgb < 8 2. Tachycardia with atrial fibrillation. - cardiac stabilization 3. Constipation: resolving 4. Acute Respiratory failure, secondary to bronchitis/URI/pneumonia. Reported history of asthma. Immunosuppressed with CellCept chronically - management per primary and other consultants 5. Poor nutrition/protein calorie malnutrition - Status post EGD + PEG -Monitor tube feed every 6 hours, hold for residual >150 mL Further recommendations depend on clinical course Patient seen in collaboration with Dr. Zuniga Consultation Date/Type/Reason Admit Date/Time Feb 29, 2016 at 18:54 Initial Consult Date 03/08/16 Type of Consultation: Gastroenterology Reason for Consultation Constipation Referring Provider: KANCHAN LEONARD MD 24 HR Interval Summary Free Text/Dictation BM last night Hemoglobin stable G-tube at 50 with minimal residual We will continue to monitor Exam/Review of Systems Vital Signs Vitals Vital Signs Date Time Temp Pulse Resp B/P Pulse Ox O2 Delivery O2 Flow Rate FiO2 03/24/16 08:18 88 03/24/16 08:14 20 Nasal Cannula 2.0 03/24/16 07:58 98.4 120/58 99 03/23/16 20:06 25 Intake and Output 03/23/16 03/23/16 03/24/16 15:00 23:00 07:00 Intake Total 1010 ml 200 ml 1000 ml Output Total 430 ml 275 ml 400 ml Balance 580 ml -75 ml 600 ml Exam Psych: confusion Head: atraumatic, normocephalic Eyes: nl conjunctiva, nl lids, nl sclera ENMT: mucosa pink and moist, nl external ears & nose, nl lips & teeth, nl nasal mucosa & septum Neck: non-tender, supple Respiratory: clear to auscultation, normal air movement Cardiovascular: nl pulses, regular rate and rhythm Gastrointestinal: bowel sounds, non-tender, soft Results Result Diagram: 03/24/16 0545 03/24/16 0545 Results 24 hrs Laboratory Tests Test 03/23/16 12:53 03/23/16 17:49 03/23/16 21:10 03/24/16 00:01 Bedside Glucose 156 178 215 193 Test 03/24/16 02:26 1/7/17 05:21 03/24/16 05:45 Bedside Glucose 180 197 Alanine Aminotransferase (ALT/SGPT) 39 Albumin 2.3 L Albumin/Globulin Ratio 1.00 Alkaline Phosphatase 72 Anion Gap 9 Aspartate Amino Transf (AST/SGOT) 14 L Basophils # 0.0 Basophils % 0.0 Blood Morphology Comment Blood Urea Nitrogen 51 H Calcium Level 7.7 L Carbon Dioxide Level 30 Chloride Level 104 Creatinine 1.00 Direct Bilirubin 0.00 Eosinophils # 0.0 Eosinophils % 0.0 Free Thyroxine 0.89 Globulin 2.30 Glucose Level 175 Hematocrit 30.6 L Hemoglobin 9.9 L Indirect Bilirubin 0.1 Lymphocytes # 0.1 L Lymphocytes % 1.4 L Magnesium Level 2.7 H Mean Corpuscular Hemoglobin 27.4 L Mean Corpuscular Hemoglobin Concent 32.5 Mean Corpuscular Volume 84.4 Mean Platelet Volume 10.0 Monocytes # 0.4 Monocytes % 4.8 Neutrophils # 8.8 H Neutrophils % 93.8 H Nucleated Red Blood Cells # 0.0 Nucleated Red Blood Cells % 0.0 Phosphorus Level 4.1 Platelet Count 75 L Potassium Level 5.0 Red Blood Count 3.62 L Red Cell Distribution Width 16.7 H Sodium Level 138 Thyroid Stimulating Hormone (TSH) 0.964 Total Bilirubin 0.1 L Total Protein 4.6 L White Blood Count 9.4 Medications Medications Current Medications Brimonidine Tartrate (Alphagan 0.2%) 1 drop Q8 BOTH EYES Last administered on 06:16; Admin Dose 1 DROP; Start 03/01/16 at 06:00 Latanoprost (Xalatan) 1 drop QHS BOTH EYES Last administered on 03/22/16 20:25 ; Admin Dose 1 DROP; Start 03/01/16 at 21:00 Acetaminophen (Tylenol Tab) 650 mg Q4H PRN PO pain/fever Last administered on 03/08/16at 12:49; Admin Dose 650 MG; Start 03/01/16 at 01:00 Morphine Sulfate (morphine) 2 mg Q2H PRN IV pain Last administered on 03/19/16 01:55; Admin Dose 2 MG; Start 03/01/16 at 01:00 Miscellaneous Information 1 ea NOTE XX ; Start 03/01/16 at 02:00 Glucose (Glutose) 15 gm Q15M PRN PO DECREASED GLUCOSE; Start 03/01/16 at 02:00 Glucose (Glutose) 22.5 gm Q15M PRN PO DECREASED GLUCOSE; Start 03/01/16 at 02: 00 Dextrose (D50w Syringe) 25 ml Q15M PRN IV DECREASED GLUCOSE Last administered on 03/13/16at 13:36; Admin Dose 25 ML; Start 03/01/16 at 02:00 Dextrose (D50w Syringe) 50 ml Q15M PRN IV DECREASED GLUCOSE Last administered on 03/13/16at 12:30; Admin Dose 50 ML; Start 03/01/16 at 02:00 Glucagon (Glucagen) 1 mg Q15M PRN IM DECREASED GLUCOSE; Start 03/01/16 at 02: 00 Glucose (Glutose) 15 gm Q15M PRN BUCCAL DECREASED GLUCOSE; Start 03/01/16 at 02:00 Diagnostic Test (Pha) (Accucheck) 1 ea 02 XX Last administered on 03/24/16 02: 35; Admin Dose 1 EA; Start 03/02/16 at 02:00 Bisacodyl (Dulcolax Supp) 10 mg DAILY PRN [place] CONSTIPATION Last administered on 03/08/16at 23:47; Admin Dose 10 MG; Start 03/03/16 at 11:30 Clotrimazole (Lotrimin Cr) 1 applic BID TOP Last administered on 03/24/16 09:37 ; Admin Dose 1 APPLIC; Start 03/03/16 at 13:30 Ondansetron HCl (Zofran Inj) 4 mg Q4H PRN IV NAUSEA AND/OR VOMITING; Start at 23:30 Pantoprazole (Protonix Iv) 40 mg BID@06,18 IV Last administered on 03/24/16 05: 22; Admin Dose 40 MG; Start 03/10/16 at 06:00 Gabapentin (Neurontin) 300 mg Q8 GTB Last administered on 03/24/16 05:22; Admin Dose 300 MG; Start 03/13/16 at 06:00 Methylprednisolone Sodium Succinate 30 mg 30 mg DAILY IV Last administered on 09:36; Admin Dose 30 MG; Start 03/13/16 at 09:30 Meropenem/Sodium Chloride (Merrem/NS) 100 ml @ 200 mls/hr Q12 IVPB Last administered on 03/24/16 10:51; Admin Dose 200 MLS/HR; Start 03/13/16 at 17:00 Hydralazine HCl (Apresoline) 10 mg Q6H PRN IV SBP>160 Last administered on 01:28; Admin Dose 10 MG; Start 03/14/16 at 22:00 Insulin Glargine (Lantus) 50 unit QHS SC Last administered on 03/23/16 21:21; Admin Dose 50 UNIT; Start 03/18/16 at 21:00 Insulin Aspart (Novolog Insulin Pen) (Adult SC Insulin - Moder... Q6 SC Last administered on 03/24/16 05:56; Admin Dose 4 UNIT; Start 03/18/16 at 06:30 Docusate Sodium (Colace Liquid Cup) 100 mg BID PEG Last administered on 09:36; Admin Dose 100 MG; Start 03/22/16 at 09:00 Mycophenolate Mofetil (Cellcept) 500 mg BID PEG Last administered on 03/24/16 09:36; Admin Dose 500 MG; Start 03/22/16 at 09:00 Voriconazole (Voriconazole) 200 mg BID GTB Last administered on 03/24/16 09:36 ; Admin Dose 200 MG; Start 03/22/16 at 21:00 Polyethylene Glycol (Miralax) 17 gm TID GTB Last administered on 03/24/16 09:35 ; Admin Dose 17 GM; Start 03/22/16 at 21:00 Diltiazem HCl (Cardizem) 30 mg Q6 PO Last administered on 03/24/16 05:23; Admin Dose 30 MG; Start 03/22/16 at 18:00 Losartan Potassium (Cozaar) 25 mg BID PEG Last administered on 03/24/16 09:37; Admin Dose 25 MG; Start 03/23/16 at 21:00 Clonidine (Catapres) 0.1 mg Q8H PRN PEG SBP GREATER THAN 160; Start 03/23/16 at 11:30 TR AMES Mar 24, 2016 11:14
[2016-03-24] MEDS ORDERED: LUBIPROSTONE 24 MCG CAP PO SCH (12:30)
--- NOTE | 2016-03-24 12:37 | RADRPT ---
PROCEDURE: XR Chest AP portable CLINICAL INDICATION: CHF TECHNIQUE: An AP portable radiograph of the chest was submitted. COMPARISON: 03/18/2016 FINDINGS: Support Hardware: The left upper extremity PICC catheter is stable and positioning. Cardiovascular: The heart remains moderately enlarged, the aortic and appears atherosclerotic and th e pulmonary vasculature again appears congested. Lung [place]: There is opacification of the lungs seen to the heart within the left lower lobe with v olume loss compatible with atelectasis and possibly infiltrate. Subsegmental atelectasis is again s een at the right lung base. Pleural Spaces: There is again suspicion of a left pleural fluid accumulation. No pneumothorax is e vident. Osseous Structures: Mild degenerative spine changes are noted. Soft Tissues: The soft tissues appear generous. IMPRESSION: 1. The left upper extremity PICC catheter is stable in positioning. 2. Persistent cardiomegaly with atherosclerotic changes of the aorta and CHF. 3. Worsening atelectasis/infiltrate involving the left lower lobe and persistent much less discoid atelectasis at the medial left lung base. 4. Suspicion of a small to moderate left pleural fluid accumulation. Physician Melisa Date Time Electronically viewed and signed by Physician Melisa on 03/24/2016 12:36 /
[2016-03-24] MEDS: LUBIPROSTONE 24 MCG CAP PO SCH (14:00)
--- NOTE | 2016-03-24 14:21 | CONS ---
Date/Time of Note Date/Time of Note DATE: 03/24/16 TIME: 14:20 Consult Date/Type/Reason Admit Date/Time Feb 29, 2016 at 18:54 Initial Consult Date 03/08/16 Type of Consultation: id Ordering Provider: KANCHAN LEONARD MD Subjective no events, tx to telemetry, sleeping, no sob on nc, no fevers Objective Vital Signs Date Time Temp Pulse Resp B/P Pulse Ox O2 Delivery O2 Flow Rate FiO2 03/24/16 14:16 74 24 97 Nasal Cannula 2.0 03/24/16 11:36 98.4 153/63 03/23/16 20:06 25 Intake and Output 03/23/16 03/23/16 03/24/16 15:00 23:00 07:00 Intake Total 1010 ml 200 ml 1000 ml Output Total 430 ml 275 ml 400 ml Balance 580 ml -75 ml 600 ml Results/Medications Result Diagram: 03/24/16 0545 03/24/16 0545 Results 24 hrs Laboratory Tests Test 03/23/16 17:49 03/23/16 21:10 03/24/16 00:01 03/24/16 02:26 Bedside Glucose 178 215 193 180 Test 03/24/16 05:21 03/24/16 05:45 03/24/16 12:03 Bedside Glucose 197 172 Alanine Aminotransferase (ALT/SGPT) 39 Albumin 2.3 L Albumin/Globulin Ratio 1.00 Alkaline Phosphatase 72 Anion Gap 9 Aspartate Amino Transf (AST/SGOT) 14 L Basophils # 0.0 Basophils % 0.0 Blood Morphology Comment Blood Urea Nitrogen 51 H Calcium Level 7.7 L Carbon Dioxide Level 30 Chloride Level 104 Creatinine 1.00 Direct Bilirubin 0.00 Eosinophils # 0.0 Eosinophils % 0.0 Free Thyroxine 0.89 Globulin 2.30 Glucose Level 175 Hematocrit 30.6 L Hemoglobin 9.9 L Indirect Bilirubin 0.1 Lymphocytes # 0.1 L Lymphocytes % 1.4 L Magnesium Level 2.7 H Mean Corpuscular Hemoglobin 27.4 L Mean Corpuscular Hemoglobin Concent 32.5 Mean Corpuscular Volume 84.4 Mean Platelet Volume 10.0 Monocytes # 0.4 Monocytes % 4.8 Neutrophils # 8.8 H Neutrophils % 93.8 H Nucleated Red Blood Cells # 0.0 Nucleated Red Blood Cells % 0.0 Phosphorus Level 4.1 Platelet Count 75 L Potassium Level 5.0 Red Blood Count 3.62 L Red Cell Distribution Width 16.7 H Sodium Level 138 Thyroid Stimulating Hormone (TSH) 0.964 Total Bilirubin 0.1 L Total Protein 4.6 L White Blood Count 9.4 Medications Current Medications Brimonidine Tartrate (Alphagan 0.2%) 1 drop Q8 BOTH EYES Last administered on 06:16; Admin Dose 1 DROP; Start 03/01/16 at 06:00 Latanoprost (Xalatan) 1 drop QHS BOTH EYES Last administered on 03/22/16 20:25 ; Admin Dose 1 DROP; Start 03/01/16 at 21:00 Acetaminophen (Tylenol Tab) 650 mg Q4H PRN PO pain/fever Last administered on 03/08/16at 12:49; Admin Dose 650 MG; Start 03/01/16 at 01:00 Morphine Sulfate (morphine) 2 mg Q2H PRN IV pain Last administered on 03/19/16 01:55; Admin Dose 2 MG; Start 03/01/16 at 01:00 Miscellaneous Information 1 ea NOTE XX ; Start 03/01/16 at 02:00 Glucose (Glutose) 15 gm Q15M PRN PO DECREASED GLUCOSE; Start 03/01/16 at 02:00 Glucose (Glutose) 22.5 gm Q15M PRN PO DECREASED GLUCOSE; Start 03/01/16 at 02: 00 Dextrose (D50w Syringe) 25 ml Q15M PRN IV DECREASED GLUCOSE Last administered on 03/13/16at 13:36; Admin Dose 25 ML; Start 03/01/16 at 02:00 Dextrose (D50w Syringe) 50 ml Q15M PRN IV DECREASED GLUCOSE Last administered on 03/13/16at 12:30; Admin Dose 50 ML; Start 03/01/16 at 02:00 Glucagon (Glucagen) 1 mg Q15M PRN IM DECREASED GLUCOSE; Start 03/01/16 at 02: 00 Glucose (Glutose) 15 gm Q15M PRN BUCCAL DECREASED GLUCOSE; Start 03/01/16 at 02:00 Diagnostic Test (Pha) (Accucheck) 1 ea 02 XX Last administered on 03/24/16 02: 35; Admin Dose 1 EA; Start 03/02/16 at 02:00 Bisacodyl (Dulcolax Supp) 10 mg DAILY PRN [place] CONSTIPATION Last administered on 03/08/16at 23:47; Admin Dose 10 MG; Start 03/03/16 at 11:30 Clotrimazole (Lotrimin Cr) 1 applic BID TOP Last administered on 03/24/16 09:37 ; Admin Dose 1 APPLIC; Start 03/03/16 at 13:30 Ondansetron HCl (Zofran Inj) 4 mg Q4H PRN IV NAUSEA AND/OR VOMITING; Start at 23:30 Pantoprazole (Protonix Iv) 40 mg BID@06,18 IV Last administered on 03/24/16 05: 22; Admin Dose 40 MG; Start 03/10/16 at 06:00 Gabapentin (Neurontin) 300 mg Q8 GTB Last administered on 03/24/16 05:22; Admin Dose 300 MG; Start 03/13/16 at 06:00 Methylprednisolone Sodium Succinate 30 mg 30 mg DAILY IV Last administered on 09:36; Admin Dose 30 MG; Start 03/13/16 at 09:30 Meropenem/Sodium Chloride (Merrem/NS) 100 ml @ 200 mls/hr Q12 IVPB Last administered on 03/24/16 10:51; Admin Dose 200 MLS/HR; Start 03/13/16 at 17:00 Hydralazine HCl (Apresoline) 10 mg Q6H PRN IV SBP>160 Last administered on 01:28; Admin Dose 10 MG; Start 03/14/16 at 22:00 Insulin Glargine (Lantus) 50 unit QHS SC Last administered on 03/23/16 21:21; Admin Dose 50 UNIT; Start 03/18/16 at 21:00 Insulin Aspart (Novolog Insulin Pen) (Adult SC Insulin - Moder... Q6 SC Last administered on 03/24/16 12:06; Admin Dose 2 UNIT; Start 03/18/16 at 06:30 Docusate Sodium (Colace Liquid Cup) 100 mg BID PEG Last administered on 09:36; Admin Dose 100 MG; Start 03/22/16 at 09:00 Mycophenolate Mofetil (Cellcept) 500 mg BID PEG Last administered on 03/24/16 09:36; Admin Dose 500 MG; Start 03/22/16 at 09:00 Voriconazole (Voriconazole) 200 mg BID GTB Last administered on 03/24/16 09:36 ; Admin Dose 200 MG; Start 03/22/16 at 21:00 Polyethylene Glycol (Miralax) 17 gm TID GTB Last administered on 03/24/16 12:10 ; Admin Dose 17 GM; Start 03/22/16 at 21:00 Diltiazem HCl (Cardizem) 30 mg Q6 PO Last administered on 03/24/16 12:05; Admin Dose 30 MG; Start 03/22/16 at 18:00 Losartan Potassium (Cozaar) 25 mg BID PEG Last administered on 03/24/16 09:37; Admin Dose 25 MG; Start 03/23/16 at 21:00 Clonidine (Catapres) 0.1 mg Q8H PRN PEG SBP GREATER THAN 160; Start 03/23/16 at 11:30 Lubiprostone (Amitiza) 24 mcg DAILY PO Last administered on 03/24/16 14:00; Admin Dose 24 MCG; Start 03/24/16 at 13:00 Assessment/Plan Chief Complaint/Hosp Course MICROBIOLOGY: Urine culture repeated on 03/19/2016 growing Cindy glabrata. INDWELLINGS: PICC line, Tong, PEG. ANTIMICROBIALS: 1. Vfend 2. Meropenem. PHYSICAL EXAMINATION: GENERAL: This is an obese, chronically ill-appearing, elderly woman who is awake, in no distress. HEENT: Head atraumatic, normocephalic. Sclerae anicteric. Buccal mucosa dry. NECK: Obese. CHEST: Rise symmetrical. Breath sounds CTA, slightly diminished to bases. HEART: S1, S2. ABDOMEN: Soft, bowel tones present. EXTREMITIES: Without cyanosis. ASSESSMENT: 1. Sepsis, resolving. 2. S/p acute respiratory failure secondary to secretion retention, possibly ongoing aspiration, sputum culture grew Escherichia coli. 3. Urinary tract infection. 4. Dysphagia, status post percutaneous endoscopic gastrostomy. 5. Acute renal failure, improved. 6. Thrombocytopenia, possibly secondary to vancomycin. 7. Paroxysmal atrial fibrillation. 8. Status post fecal impaction with chronic constipation. 9. 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 PLAN: Remains stable, no fevers, completing abx, continue aspiration measures. staff Problems: ISMAIL-ZADE,NERA MICROARRAY SPECIALIST Mar 24, 2016 14:21
--- NOTE | 2016-03-24 15:41 | CONS ---
Date/Time of Note Date/Time of Note DATE: 03/24/16 TIME: 15:39 Consult Date/Type/Reason Admit Date/Time Feb 29, 2016 at 18:54 Initial Consult Date 03/20/16 Type of Consultation: Pulm Ordering Provider: KANCHAN LEONARD MD Subjective Transferred to tele. s/p PEG Objective Vital Signs Date Time Temp Pulse Resp B/P Pulse Ox O2 Delivery O2 Flow Rate FiO2 03/24/16 15:19 98.5 80 20 120/63 94 03/24/16 14:16 Nasal Cannula 2.0 03/23/16 20:06 25 Intake and Output 03/23/16 03/23/16 03/24/16 15:00 23:00 07:00 Intake Total 1010 ml 200 ml 1000 ml Output Total 430 ml 275 ml 400 ml Balance 580 ml -75 ml 600 ml NECK: Supple. No JVD or lymphadenopathy. CARDIAC EXAM: S1, S2. No added sounds or murmurs. CHEST: Diminished air entry bilaterally L > R ABDOMEN: Soft, nontender. No guarding or rebound. EXTREMITIES: No cyanosis, clubbing edema +1 Results/Medications Result Diagram: 03/24/16 0545 03/24/16 0545 Results 24 hrs Laboratory Tests Test 03/23/16 17:49 03/23/16 21:10 03/24/16 00:01 03/24/16 02:26 Bedside Glucose 178 215 193 180 Test 03/24/16 05:21 03/24/16 05:45 03/24/16 12:03 Bedside Glucose 197 172 Alanine Aminotransferase (ALT/SGPT) 39 Albumin 2.3 L Albumin/Globulin Ratio 1.00 Alkaline Phosphatase 72 Anion Gap 9 Aspartate Amino Transf (AST/SGOT) 14 L Basophils # 0.0 Basophils % 0.0 Blood Morphology Comment Blood Urea Nitrogen 51 H Calcium Level 7.7 L Carbon Dioxide Level 30 Chloride Level 104 Creatinine 1.00 Direct Bilirubin 0.00 Eosinophils # 0.0 Eosinophils % 0.0 Free Thyroxine 0.89 Globulin 2.30 Glucose Level 175 Hematocrit 30.6 L Hemoglobin 9.9 L Indirect Bilirubin 0.1 Lymphocytes # 0.1 L Lymphocytes % 1.4 L Magnesium Level 2.7 H Mean Corpuscular Hemoglobin 27.4 L Mean Corpuscular Hemoglobin Concent 32.5 Mean Corpuscular Volume 84.4 Mean Platelet Volume 10.0 Monocytes # 0.4 Monocytes % 4.8 Neutrophils # 8.8 H Neutrophils % 93.8 H Nucleated Red Blood Cells # 0.0 Nucleated Red Blood Cells % 0.0 Phosphorus Level 4.1 Platelet Count 75 L Potassium Level 5.0 Red Blood Count 3.62 L Red Cell Distribution Width 16.7 H Sodium Level 138 Thyroid Stimulating Hormone (TSH) 0.964 Total Bilirubin 0.1 L Total Protein 4.6 L White Blood Count 9.4 Medications Current Medications Brimonidine Tartrate (Alphagan 0.2%) 1 drop Q8 BOTH EYES Last administered on 06:16; Admin Dose 1 DROP; Start 03/01/16 at 06:00 Latanoprost (Xalatan) 1 drop QHS BOTH EYES Last administered on 03/22/16 20:25 ; Admin Dose 1 DROP; Start 03/01/16 at 21:00 Acetaminophen (Tylenol Tab) 650 mg Q4H PRN PO pain/fever Last administered on 03/08/16at 12:49; Admin Dose 650 MG; Start 03/01/16 at 01:00 Morphine Sulfate (morphine) 2 mg Q2H PRN IV pain Last administered on 03/19/16 01:55; Admin Dose 2 MG; Start 03/01/16 at 01:00 Miscellaneous Information 1 ea NOTE XX ; Start 03/01/16 at 02:00 Glucose (Glutose) 15 gm Q15M PRN PO DECREASED GLUCOSE; Start 03/01/16 at 02:00 Glucose (Glutose) 22.5 gm Q15M PRN PO DECREASED GLUCOSE; Start 03/01/16 at 02: 00 Dextrose (D50w Syringe) 25 ml Q15M PRN IV DECREASED GLUCOSE Last administered on 03/13/16at 13:36; Admin Dose 25 ML; Start 03/01/16 at 02:00 Dextrose (D50w Syringe) 50 ml Q15M PRN IV DECREASED GLUCOSE Last administered on 03/13/16at 12:30; Admin Dose 50 ML; Start 03/01/16 at 02:00 Glucagon (Glucagen) 1 mg Q15M PRN IM DECREASED GLUCOSE; Start 03/01/16 at 02: 00 Glucose (Glutose) 15 gm Q15M PRN BUCCAL DECREASED GLUCOSE; Start 03/01/16 at 02:00 Diagnostic Test (Pha) (Accucheck) 1 ea 02 XX Last administered on 03/24/16 02: 35; Admin Dose 1 EA; Start 03/02/16 at 02:00 Bisacodyl (Dulcolax Supp) 10 mg DAILY PRN [place] CONSTIPATION Last administered on 03/08/16at 23:47; Admin Dose 10 MG; Start 03/03/16 at 11:30 Clotrimazole (Lotrimin Cr) 1 applic BID TOP Last administered on 03/24/16 09:37 ; Admin Dose 1 APPLIC; Start 03/03/16 at 13:30 Ondansetron HCl (Zofran Inj) 4 mg Q4H PRN IV NAUSEA AND/OR VOMITING; Start at 23:30 Pantoprazole (Protonix Iv) 40 mg BID@06,18 IV Last administered on 03/24/16 05: 22; Admin Dose 40 MG; Start 03/10/16 at 06:00 Gabapentin (Neurontin) 300 mg Q8 GTB Last administered on 03/24/16 15:09; Admin Dose 300 MG; Start 03/13/16 at 06:00 Methylprednisolone Sodium Succinate 30 mg 30 mg DAILY IV Last administered on 09:36; Admin Dose 30 MG; Start 03/13/16 at 09:30 Meropenem/Sodium Chloride (Merrem/NS) 100 ml @ 200 mls/hr Q12 IVPB Last administered on 03/24/16 10:51; Admin Dose 200 MLS/HR; Start 03/13/16 at 17:00 Hydralazine HCl (Apresoline) 10 mg Q6H PRN IV SBP>160 Last administered on 01:28; Admin Dose 10 MG; Start 03/14/16 at 22:00 Insulin Glargine (Lantus) 50 unit QHS SC Last administered on 03/23/16 21:21; Admin Dose 50 UNIT; Start 03/18/16 at 21:00 Insulin Aspart (Novolog Insulin Pen) (Adult SC Insulin - Moder... Q6 SC Last administered on 03/24/16 12:06; Admin Dose 2 UNIT; Start 03/18/16 at 06:30 Docusate Sodium (Colace Liquid Cup) 100 mg BID PEG Last administered on 09:36; Admin Dose 100 MG; Start 03/22/16 at 09:00 Mycophenolate Mofetil (Cellcept) 500 mg BID PEG Last administered on 03/24/16 09:36; Admin Dose 500 MG; Start 03/22/16 at 09:00 Voriconazole (Voriconazole) 200 mg BID GTB Last administered on 03/24/16 09:36 ; Admin Dose 200 MG; Start 03/22/16 at 21:00 Polyethylene Glycol (Miralax) 17 gm TID GTB Last administered on 03/24/16 12:10 ; Admin Dose 17 GM; Start 03/22/16 at 21:00 Diltiazem HCl (Cardizem) 30 mg Q6 PO Last administered on 03/24/16 12:05; Admin Dose 30 MG; Start 03/22/16 at 18:00 Losartan Potassium (Cozaar) 25 mg BID PEG Last administered on 03/24/16 09:37; Admin Dose 25 MG; Start 03/23/16 at 21:00 Clonidine (Catapres) 0.1 mg Q8H PRN PEG SBP GREATER THAN 160; Start 03/23/16 at 11:30 Lubiprostone (Amitiza) 24 mcg DAILY PO Last administered on 03/24/16 14:00; Admin Dose 24 MCG; Start 03/24/16 at 13:00 Assessment/Plan Additional Assessment/Plan IMPRESSION: 1. s/p Acute hypoxemic respiratory failure.s. 2. Left lower lobe pneumonia 3. Status post significant Hypernatremia. 4. Diabetes exacerbated by intravenous steroids 5. History of hypertension. 6. Atrial fibrillation with rapid ventricular rate 7. History of Coronary artery disease. 8. Anemia status post endoscopy findings noted. No active bleeding 9. 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 Encephalopathy likely toxic metabolic no significant findings on MRI RECOMMENDATIONS: 1. CPT 2. Supplemental oxygen to SpO2 > 90% 3. Continue current antibiotics and chest PT 4. Bronchodilators. 5. Noninvasive positive pressure ventilation if needed. 6. Speech therapy recommendations continue aspiration precautions PILO ZELAYA MD Mar 24, 2016 15:41
--- NOTE | 2016-03-24 16:48 | PN ---
Date/Time of Note Date/Time of Note DATE: 03/24/16 TIME: 16:45 Assessment/Plan VTE Prophylaxis VTE Prophylaxis Intervention: SCD's Lines/Catheters IV Catheter Type (from Nrsg): PICC Line Central line still needed: Yes (critically ill patient) Urinary Cath still in place: Yes Reason Cath still needed: other (indicate) (Metabolic encephalopathy limits ability to seek help for urination) Assessment/Plan Assessment/Plan [facility] 1. 85-year-old woman admitted 24 days ago (03/01/16) with respiratory distress , much improved now and on 1 to 2L per nasal cannula. Portable CXR today shows worse atelectasis, possible pleural effusion. Non-contrast CT of the chest five days ago showed complete atelectasis of the left lower lobe, without focal infiltrate. She also had ground glass densities of the upper lobes. CT and MRI of the brain were without focal change or lesions. She didn't do well with bedside speech and swallow evaluation, now s/p EGD and PEG tube placement * Avoid benzodiazepines and narcotics * Aspiration precautions * Continue meropenem (day 12) and voriconazole (day 3) * Steroid taper 2. Constipation improved, secondary to improved sugar control and discontinuation of Fentanyl patch. EGD with no source of bleeding per Dr Zuniga * Occult fecal blood pending 3. Atrial fibrillation with episodes of RVR, better controlled now and back on Cardizem. * Hold Eliquis pending re-check on stool blood per GI 4. Acute kidney injury, with known CKD. Creatinine back to baseline now 5. Anemia, acute: s/p 2 units pRBC on 03/16, Hb stable. Also with thrombocytopenia (75k/ul) that's stable, and severe lymphopenia (100/ul). * Consider PJP prophylaxis 6. Diabetes Mellitus. Blood glucose 156-215 today. Target on continuous tube feedings is 180. * Advance tube feedings * Maintain insulin orders unchanged for now 7. Hypertension. * Continue Cardizem * Losartan 25 mg PO BID, hold for SBP<110 * Clonidine PRN for SBP > 170 8. Pemphigoid disease per family * Continue on Cellcept. 9. Chronic Pain, likely rebound from prolonged use of Fentanyl and poor sleep quality in the hospital 10 Nutrition: * Tube feedings as above. 11. UTI: E coli and now Cindy Glabrata, * Continue Voriconazole * Monitor Tong requirement 12. Prophylaxis: Holding Eliquis for now due to current concerns about GI bleeding. SCDs. Protonix for GI prophylaxis 13. Disposition: Bed located at [facility], possible transfer tomorrow if stools negative, heart rate controlled, and tolerating tube feedings well. Will discuss with other consultants and the family. Joey Gonsalez MD PhD [phone] Subjective 24 Hr Interval Summary Free Text/Dictation Appears comfortable, denies pain. No visitors present when I was there. Caller her son, Dr. Patricia. Exam/Review of Systems Vital Signs Vitals Vital Signs Date Time Temp Pulse Resp B/P Pulse Ox O2 Delivery O2 Flow Rate FiO2 03/24/16 16:28 2.0 03/24/16 16:17 121 03/24/16 15:19 98.5 20 120/63 94 03/24/16 14:16 Nasal Cannula 03/23/16 20:06 25 Intake and Output 03/23/16 03/23/16 03/24/16 14:59 22:59 06:59 Intake Total 990 ml 250 ml 1000 ml Output Total 355 ml 350 ml 400 ml Balance 635 ml -100 ml 600 ml Exam Constitutional: Awake, good eye contact, heavyset, tired-appearing, but breathing comfortably on 2L per NC Respiratory: Mild upper respiratory expiratory rhonchi, with hypoventillatory bases, but otherwise clear to auscultation with good air movement Cardiovascular: Irregular rhythm, normal rate, symmetric radial pulses Gastrointestinal: bowel sounds positive, soft, trace tenderness, moderate tympany, PEG in place. Extremities: Symmetric pulses, stasis changes with induration around the proximal IT band of both hips, and hyperpigmentation of both distal calves. No cords in the calves. 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 Somnolent and very lethargic-appearing. Results Result Diagram: 03/24/16 0545 03/24/16 0545 Results 24 hrs Laboratory Tests Test 03/23/16 17:49 03/23/16 21:10 03/24/16 00:01 03/24/16 02:26 Bedside Glucose 178 215 193 180 Test 03/24/16 05:21 03/24/16 05:45 03/24/16 12:03 Bedside Glucose 197 172 Alanine Aminotransferase (ALT/SGPT) 39 Albumin 2.3 L Albumin/Globulin Ratio 1.00 Alkaline Phosphatase 72 Anion Gap 9 Aspartate Amino Transf (AST/SGOT) 14 L Basophils # 0.0 Basophils % 0.0 Blood Morphology Comment Blood Urea Nitrogen 51 H Calcium Level 7.7 L Carbon Dioxide Level 30 Chloride Level 104 Creatinine 1.00 Direct Bilirubin 0.00 Eosinophils # 0.0 Eosinophils % 0.0 Free Thyroxine 0.89 Globulin 2.30 Glucose Level 175 Hematocrit 30.6 L Hemoglobin 9.9 L Indirect Bilirubin 0.1 Lymphocytes # 0.1 L Lymphocytes % 1.4 L Magnesium Level 2.7 H Mean Corpuscular Hemoglobin 27.4 L Mean Corpuscular Hemoglobin Concent 32.5 Mean Corpuscular Volume 84.4 Mean Platelet Volume 10.0 Monocytes # 0.4 Monocytes % 4.8 Neutrophils # 8.8 H Neutrophils % 93.8 H Nucleated Red Blood Cells # 0.0 Nucleated Red Blood Cells % 0.0 Phosphorus Level 4.1 Platelet Count 75 L Potassium Level 5.0 Red Blood Count 3.62 L Red Cell Distribution Width 16.7 H Sodium Level 138 Thyroid Stimulating Hormone (TSH) 0.964 Total Bilirubin 0.1 L Total Protein 4.6 L White Blood Count 9.4 Medications Medications Current Medications Brimonidine Tartrate (Alphagan 0.2%) 1 drop Q8 BOTH EYES Last administered on 06:16; Admin Dose 1 DROP; Start 03/01/16 at 06:00 Latanoprost (Xalatan) 1 drop QHS BOTH EYES Last administered on 03/22/16 20:25 ; Admin Dose 1 DROP; Start 03/01/16 at 21:00 Acetaminophen (Tylenol Tab) 650 mg Q4H PRN PO pain/fever Last administered on 03/08/16at 12:49; Admin Dose 650 MG; Start 03/01/16 at 01:00 Morphine Sulfate (morphine) 2 mg Q2H PRN IV pain Last administered on 03/19/16 01:55; Admin Dose 2 MG; Start 03/01/16 at 01:00 Miscellaneous Information 1 ea NOTE XX ; Start 03/01/16 at 02:00 Glucose (Glutose) 15 gm Q15M PRN PO DECREASED GLUCOSE; Start 12/15/16 at 02:00 Glucose (Glutose) 22.5 gm Q15M PRN PO DECREASED GLUCOSE; Start 03/01/16 at 02: 00 Dextrose (D50w Syringe) 25 ml Q15M PRN IV DECREASED GLUCOSE Last administered on 03/13/16at 13:36; Admin Dose 25 ML; Start 03/01/16 at 02:00 Dextrose (D50w Syringe) 50 ml Q15M PRN IV DECREASED GLUCOSE Last administered on 03/13/16at 12:30; Admin Dose 50 ML; Start 03/01/16 at 02:00 Glucagon (Glucagen) 1 mg Q15M PRN IM DECREASED GLUCOSE; Start 03/01/16 at 02: 00 Glucose (Glutose) 15 gm Q15M PRN BUCCAL DECREASED GLUCOSE; Start 03/01/16 at 02:00 Diagnostic Test (Pha) (Accucheck) 1 ea 02 XX Last administered on 03/24/16 02: 35; Admin Dose 1 EA; Start 03/02/16 at 02:00 Bisacodyl (Dulcolax Supp) 10 mg DAILY PRN [place] CONSTIPATION Last administered on 03/08/16at 23:47; Admin Dose 10 MG; Start 03/03/16 at 11:30 Clotrimazole (Lotrimin Cr) 1 applic BID TOP Last administered on 03/24/16 09:37 ; Admin Dose 1 APPLIC; Start 03/03/16 at 13:30 Ondansetron HCl (Zofran Inj) 4 mg Q4H PRN IV NAUSEA AND/OR VOMITING; Start at 23:30 Pantoprazole (Protonix Iv) 40 mg BID@06,18 IV Last administered on 03/24/16 05: 22; Admin Dose 40 MG; Start 03/10/16 at 06:00 Gabapentin (Neurontin) 300 mg Q8 GTB Last administered on 03/24/16 15:09; Admin Dose 300 MG; Start 03/13/16 at 06:00 Methylprednisolone Sodium Succinate 30 mg 30 mg DAILY IV Last administered on 09:36; Admin Dose 30 MG; Start 03/13/16 at 09:30 Meropenem/Sodium Chloride (Merrem/NS) 100 ml @ 200 mls/hr Q12 IVPB Last administered on 03/24/16 10:51; Admin Dose 200 MLS/HR; Start 03/13/16 at 17:00 Hydralazine HCl (Apresoline) 10 mg Q6H PRN IV SBP>160 Last administered on 01:28; Admin Dose 10 MG; Start 03/14/16 at 22:00 Insulin Glargine (Lantus) 50 unit QHS SC Last administered on 03/23/16 21:21; Admin Dose 50 UNIT; Start 03/18/16 at 21:00 Insulin Aspart (Novolog Insulin Pen) (Adult SC Insulin - Moder... Q6 SC Last administered on 03/24/16 12:06; Admin Dose 2 UNIT; Start 03/18/16 at 06:30 Docusate Sodium (Colace Liquid Cup) 100 mg BID PEG Last administered on 09:36; Admin Dose 100 MG; Start 03/22/16 at 09:00 Mycophenolate Mofetil (Cellcept) 500 mg BID PEG Last administered on 03/24/16 09:36; Admin Dose 500 MG; Start 03/22/16 at 09:00 Voriconazole (Voriconazole) 200 mg BID GTB Last administered on 03/24/16 09:36 ; Admin Dose 200 MG; Start 03/22/16 at 21:00 Polyethylene Glycol (Miralax) 17 gm TID GTB Last administered on 03/24/16 12:10 ; Admin Dose 17 GM; Start 03/22/16 at 21:00 Diltiazem HCl (Cardizem) 30 mg Q6 PO Last administered on 03/24/16 12:05; Admin Dose 30 MG; Start 03/22/16 at 18:00 Losartan Potassium (Cozaar) 25 mg BID PEG Last administered on 03/24/16 09:37; Admin Dose 25 MG; Start 03/23/16 at 21:00 Clonidine (Catapres) 0.1 mg Q8H PRN PEG SBP GREATER THAN 160; Start 03/23/16 at 11:30 Lubiprostone (Amitiza) 24 mcg DAILY PO Last administered on 03/24/16 14:00; Admin Dose 24 MCG; Start 03/24/16 at 13:00 TRACI GONSALEZ M.D. Mar 24, 2016 16:48
[2016-03-24] MEDS: DILTIAZEM 60 MG TAB PO SCH (18:37)
[2016-03-24] MEDS: LATANOPROST 0.005% 2.5 ML OPH BOTH EYES SCH (21:02)
[2016-03-24] MEDS: INSULIN GLARGINE [LANtus] 3 ML PEN SC SCH (21:10)
[2016-03-25] VITALS (12 sets, daily range): BP systolic 124–140; BP diastolic 58–87; PULSE 74–109; RESP 18–20
[2016-03-25] MEDS: DILTIAZEM 60 MG TAB PO SCH ×4 (00:33→17:28)
[2016-03-25] MEDS: Insulin NOVOLOG SS MODERATE Algorithm(NPO/TPN/ENTERAL FEEDS) SC SCH ×4 (00:40→17:26)
[2016-03-25] MEDS: ALBUTEROL/IPRATROPIUM (NEB) 3 ML AMP HHN SCH ×4 (02:43→19:58)
[2016-03-25] MEDS: ACCUCHECK AT 2AM (Patients on SS coverage) XX SCH (02:47)
[2016-03-25] MEDS: PANTOPRAZOLE 40 MG INJ IV SCH ×2 (05:34→17:28)
[2016-03-25] MEDS: BRIMONIDINE 0.2% 5 ML BTL BOTH EYES SCH ×3 (05:35→21:09)
[2016-03-25] MEDS: GABAPENTIN 300 MG CAP GTB SCH ×3 (05:36→22:14)
[2016-03-25] MEDS: LUBIPROSTONE 24 MCG CAP PO SCH (08:38)
[2016-03-25] MEDS: DOCUSATE SODIUM 10 MG/ML (10ML CUP) PEG SCH ×2 (08:39→20:55)
[2016-03-25] MEDS: METHYLPREDNISOLONE 40 MG INJ IV SCH (08:39)
[2016-03-25] MEDS: MEROPENEM 500 MG in SOD CHLORIDE 0.9% 100 ML IVPB SCH (08:39)
[2016-03-25] MEDS: MYCOPHENOLATE MOFETIL PEG SCH ×2 (08:39→21:17)
[2016-03-25] MEDS: LOSARTAN 25 MG TAB PEG SCH ×2 (08:40→20:56)
[2016-03-25] MEDS: CLOTRIMAZOLE 1% 30 GM CR TOP SCH ×2 (08:40→20:56)
[2016-03-25] MEDS: POLYETHYLENE GLYCOL 17 GM PACKET GTB SCH ×3 (08:40→20:56)
[2016-03-25] MEDS: VORICONAZOLE GTB SCH ×2 (08:41→20:55)
--- NOTE | 2016-03-25 08:54 | CONS ---
Date/Time of Note Date/Time of Note DATE: 03/25/16 TIME: 08:50 Assessment/Plan Assessment/Plan Additional Assessment/Plan 1.Anemia - transfuse PRN hgb < 8 2. Tachycardia with atrial fibrillation. - cardiac stabilization 3. Constipation: resolving 4. Acute Respiratory failure, secondary to bronchitis/URI/pneumonia. Reported history of asthma. Immunosuppressed with CellCept chronically - management per primary and other consultants 5. Poor nutrition/protein calorie malnutrition - Status post EGD + PEG -Monitor tube feed every 6 hours, hold for residual >150 mL Further recommendations depend on clinical course Patient seen in collaboration with Dr. Zuniga Consultation Date/Type/Reason Admit Date/Time Feb 29, 2016 at 18:54 Initial Consult Date 03/08/16 Type of Consultation: Gastroenterology Referring Provider: KANCHAN LEONARD MD 24 HR Interval Summary Free Text/Dictation Tube feed at 50 with minimal residual Stool OB has not been collected Family would like repeat swallow evaluation for liquids Hemoglobin stable Exam/Review of Systems Vital Signs Vitals Vital Signs Date Time Temp Pulse Resp B/P Pulse Ox O2 Delivery O2 Flow Rate FiO2 03/25/16 08:18 74 03/25/16 08:02 20 97 Nasal Cannula 2.0 03/25/16 07:31 97.8 124/58 03/25/16 05:21 28 Intake and Output 03/24/16 03/24/16 03/25/16 15:00 23:00 07:00 Intake Total 100 ml 900 ml 900 ml Output Total 500 ml 800 ml Balance 100 ml 400 ml 100 ml Exam Psych: Alert, less confused Head: atraumatic, normocephalic Eyes: nl conjunctiva, nl lids, nl sclera ENMT: mucosa pink and moist, nl external ears & nose, nl lips & teeth, nl nasal mucosa & septum Neck: non-tender, supple Respiratory: clear to auscultation, normal air movement Cardiovascular: nl pulses, regular rate and rhythm Gastrointestinal: bowel sounds, non-tender, soft Results Result Diagram: 03/24/16 0545 03/24/16 0545 Results 24 hrs Laboratory Tests Test 03/24/16 12:03 03/24/16 18:21 03/24/16 20:57 03/25/16 00:28 Bedside Glucose 172 177 191 184 Test 03/25/16 05:33 Bedside Glucose 149 Medications Medications Current Medications Brimonidine Tartrate (Alphagan 0.2%) 1 drop Q8 BOTH EYES Last administered on 05:35; Admin Dose 1 DROP; Start 03/01/16 at 06:00 Latanoprost (Xalatan) 1 drop QHS BOTH EYES Last administered on 03/24/16 21:02 ; Admin Dose 1 DROP; Start 03/01/16 at 21:00 Acetaminophen (Tylenol Tab) 650 mg Q4H PRN PO pain/fever Last administered on 03/08/16at 12:49; Admin Dose 650 MG; Start 03/01/16 at 01:00 Morphine Sulfate (morphine) 2 mg Q2H PRN IV pain Last administered on 03/19/16 01:55; Admin Dose 2 MG; Start 03/01/16 at 01:00 Miscellaneous Information 1 ea NOTE XX ; Start 03/01/16 at 02:00 Glucose (Glutose) 15 gm Q15M PRN PO DECREASED GLUCOSE; Start 03/01/16 at 02:00 Glucose (Glutose) 22.5 gm Q15M PRN PO DECREASED GLUCOSE; Start 03/01/16 at 02: 00 Dextrose (D50w Syringe) 25 ml Q15M PRN IV DECREASED GLUCOSE Last administered on 03/13/16at 13:36; Admin Dose 25 ML; Start 03/01/16 at 02:00 Dextrose (D50w Syringe) 50 ml Q15M PRN IV DECREASED GLUCOSE Last administered on 03/13/16at 12:30; Admin Dose 50 ML; Start 03/01/16 at 02:00 Glucagon (Glucagen) 1 mg Q15M PRN IM DECREASED GLUCOSE; Start 03/01/16 at 02: 00 Glucose (Glutose) 15 gm Q15M PRN BUCCAL DECREASED GLUCOSE; Start 03/01/16 at 02:00 Diagnostic Test (Pha) (Accucheck) 1 ea 02 XX Last administered on 03/25/16 02: 47; Admin Dose 1 EA; Start 03/02/16 at 02:00 Bisacodyl (Dulcolax Supp) 10 mg DAILY PRN [place] CONSTIPATION Last administered on 03/08/16at 23:47; Admin Dose 10 MG; Start 03/03/16 at 11:30 Clotrimazole (Lotrimin Cr) 1 applic BID TOP Last administered on 03/24/16 21:06 ; Admin Dose 1 APPLIC; Start 03/03/16 at 13:30 Ondansetron HCl (Zofran Inj) 4 mg Q4H PRN IV NAUSEA AND/OR VOMITING; Start at 23:30 Pantoprazole (Protonix Iv) 40 mg BID@06,18 IV Last administered on 03/25/16 05: 34; Admin Dose 40 MG; Start 03/10/16 at 06:00 Gabapentin (Neurontin) 300 mg Q8 GTB Last administered on 03/25/16 05:36; Admin Dose 300 MG; Start 03/13/16 at 06:00 Methylprednisolone Sodium Succinate 30 mg 30 mg DAILY IV Last administered on 09:36; Admin Dose 30 MG; Start 03/13/16 at 09:30 Meropenem/Sodium Chloride (Merrem/NS) 100 ml @ 200 mls/hr Q12 IVPB Last administered on 03/24/16 20:59; Admin Dose 200 MLS/HR; Start 03/13/16 at 17:00 Hydralazine HCl (Apresoline) 10 mg Q6H PRN IV SBP>160 Last administered on 01:28; Admin Dose 10 MG; Start 03/14/16 at 22:00 Insulin Glargine (Lantus) 50 unit QHS SC Last administered on 03/24/16 21:10; Admin Dose 50 UNIT; Start 03/18/16 at 21:00 Insulin Aspart (Novolog Insulin Pen) (Adult SC Insulin - Moder... Q6 SC Last administered on 03/25/16 05:43; Admin Dose 2 UNIT; Start 03/18/16 at 06:30 Docusate Sodium (Colace Liquid Cup) 100 mg BID PEG Last administered on 21:00; Admin Dose 100 MG; Start 03/22/16 at 09:00 Mycophenolate Mofetil (Cellcept) 500 mg BID PEG Last administered on 03/24/16 21:00; Admin Dose 500 MG; Start 03/22/16 at 09:00 Voriconazole (Voriconazole) 200 mg BID GTB Last administered on 03/24/16 21:13 ; Admin Dose 200 MG; Start 03/22/16 at 21:00 Polyethylene Glycol (Miralax) 17 gm TID GTB Last administered on 03/24/16 21:00 ; Admin Dose 17 GM; Start 03/22/16 at 21:00 Losartan Potassium (Cozaar) 25 mg BID PEG Last administered on 03/24/16 21:06; Admin Dose 25 MG; Start 03/23/16 at 21:00 Clonidine (Catapres) 0.1 mg Q8H PRN PEG SBP GREATER THAN 160; Start 03/23/16 at 11:30 Lubiprostone (Amitiza) 24 mcg DAILY PO Last administered on 03/24/16 14:00; Admin Dose 24 MCG; Start 03/24/16 at 13:00 Diltiazem HCl (Cardizem) 60 mg Q6 PO Last administered on 03/25/16 05:37; Admin Dose 60 MG; Start 03/24/16 at 18:00 TR AMES Mar 25, 2016 08:54
--- NOTE | 2016-03-25 14:12 | CONS ---
Date/Time of Note Date/Time of Note DATE: 03/25/16 TIME: 14:11 Consult Date/Type/Reason Admit Date/Time Feb 29, 2016 at 18:54 Initial Consult Date 03/08/16 Type of Consultation: ID Ordering Provider: KANCHAN LEONARD MD Subjective no events, awake, looks comfortable, no fevers Objective Vital Signs Date Time Temp Pulse Resp B/P Pulse Ox O2 Delivery O2 Flow Rate FiO2 03/25/16 12:31 109 03/25/16 12:29 98.6 19 137/87 96 03/25/16 10:07 Nasal Cannula 2.0 03/25/16 05:21 28 Intake and Output 03/24/16 03/24/16 03/25/16 15:00 23:00 07:00 Intake Total 100 ml 900 ml 900 ml Output Total 500 ml 800 ml Balance 100 ml 400 ml 100 ml Results/Medications Result Diagram: 03/24/16 0545 03/24/16 0545 Results 24 hrs Laboratory Tests Test 03/24/16 18:21 03/24/16 20:57 03/25/16 00:28 03/25/16 05:33 Bedside Glucose 177 191 184 149 Test 03/25/16 12:14 Bedside Glucose 184 Medications Current Medications Brimonidine Tartrate (Alphagan 0.2%) 1 drop Q8 BOTH EYES Last administered on 05:35; Admin Dose 1 DROP; Start 03/01/16 at 06:00 Latanoprost (Xalatan) 1 drop QHS BOTH EYES Last administered on 03/24/16 21:02 ; Admin Dose 1 DROP; Start 03/01/16 at 21:00 Acetaminophen (Tylenol Tab) 650 mg Q4H PRN PO pain/fever Last administered on 03/08/16at 12:49; Admin Dose 650 MG; Start 03/01/16 at 01:00 Morphine Sulfate (morphine) 2 mg Q2H PRN IV pain Last administered on 03/19/16 01:55; Admin Dose 2 MG; Start 03/01/16 at 01:00 Miscellaneous Information 1 ea NOTE XX ; Start 03/01/16 at 02:00 Glucose (Glutose) 15 gm Q15M PRN PO DECREASED GLUCOSE; Start 03/01/16 at 02:00 Glucose (Glutose) 22.5 gm Q15M PRN PO DECREASED GLUCOSE; Start 03/01/16 at 02: 00 Dextrose (D50w Syringe) 25 ml Q15M PRN IV DECREASED GLUCOSE Last administered on 03/13/16at 13:36; Admin Dose 25 ML; Start 03/01/16 at 02:00 Dextrose (D50w Syringe) 50 ml Q15M PRN IV DECREASED GLUCOSE Last administered on 03/13/16at 12:30; Admin Dose 50 ML; Start 03/01/16 at 02:00 Glucagon (Glucagen) 1 mg Q15M PRN IM DECREASED GLUCOSE; Start 03/01/16 at 02: 00 Glucose (Glutose) 15 gm Q15M PRN BUCCAL DECREASED GLUCOSE; Start 03/01/16 at 02:00 Diagnostic Test (Pha) (Accucheck) 1 ea 02 XX Last administered on 03/25/16 02: 47; Admin Dose 1 EA; Start 03/02/16 at 02:00 Bisacodyl (Dulcolax Supp) 10 mg DAILY PRN [place] CONSTIPATION Last administered on 03/08/16at 23:47; Admin Dose 10 MG; Start 03/03/16 at 11:30 Clotrimazole (Lotrimin Cr) 1 applic BID TOP Last administered on 03/25/16 08:40 ; Admin Dose 1 APPLIC; Start 03/03/16 at 13:30 Ondansetron HCl (Zofran Inj) 4 mg Q4H PRN IV NAUSEA AND/OR VOMITING; Start at 23:30 Pantoprazole (Protonix Iv) 40 mg BID@06,18 IV Last administered on 03/25/16 05: 34; Admin Dose 40 MG; Start 03/10/16 at 06:00 Gabapentin (Neurontin) 300 mg Q8 GTB Last administered on 03/25/16 05:36; Admin Dose 300 MG; Start 03/13/16 at 06:00 Methylprednisolone Sodium Succinate 30 mg 30 mg DAILY IV Last administered on 08:39; Admin Dose 30 MG; Start 03/13/16 at 09:30 Meropenem/Sodium Chloride (Merrem/NS) 100 ml @ 200 mls/hr Q12 IVPB Last administered on 03/25/16 08:39; Admin Dose 200 MLS/HR; Start 03/13/16 at 17:00 Hydralazine HCl (Apresoline) 10 mg Q6H PRN IV SBP>160 Last administered on 01:28; Admin Dose 10 MG; Start 03/14/16 at 22:00 Insulin Glargine (Lantus) 50 unit QHS SC Last administered on 03/24/16 21:10; Admin Dose 50 UNIT; Start 03/18/16 at 21:00 Insulin Aspart (Novolog Insulin Pen) (Adult SC Insulin - Moder... Q6 SC Last administered on 03/25/16 12:20; Admin Dose 4 UNIT; Start 03/18/16 at 06:30 Docusate Sodium (Colace Liquid Cup) 100 mg BID PEG Last administered on 08:39; Admin Dose 100 MG; Start 03/22/16 at 09:00 Mycophenolate Mofetil (Cellcept) 500 mg BID PEG Last administered on 03/25/16 08:39; Admin Dose 500 MG; Start 03/22/16 at 09:00 Voriconazole (Voriconazole) 200 mg BID GTB Last administered on 03/25/16 08:41 ; Admin Dose 200 MG; Start 03/22/16 at 21:00 Polyethylene Glycol (Miralax) 17 gm TID GTB Last administered on 03/25/16 12:22 ; Admin Dose 17 GM; Start 03/22/16 at 21:00 Losartan Potassium (Cozaar) 25 mg BID PEG Last administered on 03/25/16 08:40; Admin Dose 25 MG; Start 03/23/16 at 21:00 Clonidine (Catapres) 0.1 mg Q8H PRN PEG SBP GREATER THAN 160; Start 03/23/16 at 11:30 Lubiprostone (Amitiza) 24 mcg DAILY PO Last administered on 03/25/16 08:38; Admin Dose 24 MCG; Start 03/24/16 at 13:00 Diltiazem HCl (Cardizem) 60 mg Q6 PO Last administered on 03/25/16 12:36; Admin Dose 60 MG; Start 03/24/16 at 18:00 Assessment/Plan Chief Complaint/Hosp Course MICROBIOLOGY: Urine culture repeated on 03/19/2016 growing Cindy glabrata. INDWELLINGS: PICC line, Tong, PEG. ANTIMICROBIALS: 1. Vfend 2. Meropenem. PHYSICAL EXAMINATION: GENERAL: This is an obese, chronically ill-appearing, elderly woman who is awake, in no distress. HEENT: Head atraumatic, normocephalic. Sclerae anicteric. Buccal mucosa dry. NECK: Obese. CHEST: Rise symmetrical. Breath sounds CTA, slightly diminished to bases. HEART: S1, S2. ABDOMEN: Soft, bowel tones present. EXTREMITIES: Without cyanosis. ASSESSMENT: 1. S/p sepsis 2. S/p acute respiratory failure secondary to secretion retention, possibly ongoing aspiration, sputum culture grew Escherichia coli. 3. Urinary tract infection. 4. Dysphagia, status post percutaneous endoscopic gastrostomy. 5. Acute renal failure, improved. 6. Thrombocytopenia, possibly secondary to vancomycin. 7. Paroxysmal atrial fibrillation. 8. Status post fecal impaction with chronic constipation. 9. 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 PLAN: Remains stable, no fevers, will dc Merrem, continue Vfend, continue aspiration precautions. [facility] staff Problems: LEÓN PAK NP Mar 25, 2016 14:12
[2016-03-25] MEDS: BISACODYL 10 MG SUPP PR PRN (14:53)
--- NOTE | 2016-03-25 17:28 | CONS ---
Date/Time of Note Date/Time of Note DATE: 03/25/16 TIME: 17:26 Consult Date/Type/Reason Admit Date/Time Feb 29, 2016 at 18:54 Initial Consult Date 03/20/16 Type of Consultation: Pulm Ordering Provider: KANHCAN LEONARD MD Subjective No events. Objective Vital Signs Date Time Temp Pulse Resp B/P Pulse Ox O2 Delivery O2 Flow Rate FiO2 03/25/16 16:45 2.0 03/25/16 16:10 101 03/25/16 15:29 98.3 20 129/59 98 03/25/16 15:07 Nasal Cannula 03/25/16 05:21 28 Intake and Output 03/24/16 03/24/16 03/25/16 15:00 23:00 07:00 Intake Total 100 ml 900 ml 900 ml Output Total 500 ml 800 ml Balance 100 ml 400 ml 100 ml NECK: Supple. No JVD or lymphadenopathy. CARDIAC EXAM: S1, S2. No added sounds or murmurs. CHEST: Diminished air entry bilaterally L > R ABDOMEN: Soft, nontender. No guarding or rebound. EXTREMITIES: No cyanosis, clubbing edema +1 Results/Medications Result Diagram: 03/24/16 0545 03/24/16 0545 Results 24 hrs Laboratory Tests Test 03/24/16 18:21 03/24/16 20:57 03/25/16 00:28 03/25/16 05:33 Bedside Glucose 177 191 184 149 Test 03/25/16 12:14 03/25/16 17:19 Bedside Glucose 184 211 Medications Current Medications Brimonidine Tartrate (Alphagan 0.2%) 1 drop Q8 BOTH EYES Last administered on 14:49; Admin Dose 1 DROP; Start 03/01/16 at 06:00 Latanoprost (Xalatan) 1 drop QHS BOTH EYES Last administered on 03/24/16 21:02 ; Admin Dose 1 DROP; Start 03/01/16 at 21:00 Acetaminophen (Tylenol Tab) 650 mg Q4H PRN PO pain/fever Last administered on 03/08/16at 12:49; Admin Dose 650 MG; Start 03/01/16 at 01:00 Morphine Sulfate (morphine) 2 mg Q2H PRN IV pain Last administered on 03/19/16 01:55; Admin Dose 2 MG; Start 03/01/16 at 01:00 Miscellaneous Information 1 ea NOTE XX ; Start 03/01/16 at 02:00 Glucose (Glutose) 15 gm Q15M PRN PO DECREASED GLUCOSE; Start 03/01/16 at 02:00 Glucose (Glutose) 22.5 gm Q15M PRN PO DECREASED GLUCOSE; Start 03/01/16 at 02: 00 Dextrose (D50w Syringe) 25 ml Q15M PRN IV DECREASED GLUCOSE Last administered on 03/13/16at 13:36; Admin Dose 25 ML; Start 03/01/16 at 02:00 Dextrose (D50w Syringe) 50 ml Q15M PRN IV DECREASED GLUCOSE Last administered on 03/13/16at 12:30; Admin Dose 50 ML; Start 03/01/16 at 02:00 Glucagon (Glucagen) 1 mg Q15M PRN IM DECREASED GLUCOSE; Start 03/01/16 at 02: 00 Glucose (Glutose) 15 gm Q15M PRN BUCCAL DECREASED GLUCOSE; Start 03/01/16 at 02:00 Diagnostic Test (Pha) (Accucheck) 1 ea 02 XX Last administered on 03/25/16 02: 47; Admin Dose 1 EA; Start 03/02/16 at 02:00 Bisacodyl (Dulcolax Supp) 10 mg DAILY PRN [place] CONSTIPATION Last administered on 03/25/16 14:53; Admin Dose 10 MG; Start 03/03/16 at 11:30 Clotrimazole (Lotrimin Cr) 1 applic BID TOP Last administered on 03/25/16 08:40 ; Admin Dose 1 APPLIC; Start 03/03/16 at 13:30 Ondansetron HCl (Zofran Inj) 4 mg Q4H PRN IV NAUSEA AND/OR VOMITING; Start at 23:30 Pantoprazole (Protonix Iv) 40 mg BID@06,18 IV Last administered on 03/25/16 05: 34; Admin Dose 40 MG; Start 03/10/16 at 06:00 Gabapentin (Neurontin) 300 mg Q8 GTB Last administered on 03/25/16 14:48; Admin Dose 300 MG; Start 03/13/16 at 06:00 Methylprednisolone Sodium Succinate (Solu-Medrol) 30 mg DAILY IV Last administered on 03/25/16 08:39; Admin Dose 30 MG; Start 03/13/16 at 09:30 Hydralazine HCl (Apresoline) 10 mg Q6H PRN IV SBP>160 Last administered on 01:28; Admin Dose 10 MG; Start 03/14/16 at 22:00 Insulin Glargine (Lantus) 50 unit QHS SC Last administered on 03/24/16 21:10; Admin Dose 50 UNIT; Start 03/18/16 at 21:00 Insulin Aspart (Novolog Insulin Pen) (Adult SC Insulin - Moder... Q6 SC Last administered on 03/25/16 12:20; Admin Dose 4 UNIT; Start 03/18/16 at 06:30 Docusate Sodium (Colace Liquid Cup) 100 mg BID PEG Last administered on 08:39; Admin Dose 100 MG; Start 03/22/16 at 09:00 Mycophenolate Mofetil (Cellcept) 500 mg BID PEG Last administered on 03/25/16 08:39; Admin Dose 500 MG; Start 03/22/16 at 09:00 Voriconazole (Voriconazole) 200 mg BID GTB Last administered on 03/25/16 08:41 ; Admin Dose 200 MG; Start 03/22/16 at 21:00 Polyethylene Glycol (Miralax) 17 gm TID GTB Last administered on 03/25/16 12:22 ; Admin Dose 17 GM; Start 03/22/16 at 21:00 Losartan Potassium (Cozaar) 25 mg BID PEG Last administered on 03/25/16 08:40; Admin Dose 25 MG; Start 03/23/16 at 21:00 Clonidine (Catapres) 0.1 mg Q8H PRN PEG SBP GREATER THAN 160; Start 03/23/16 at 11:30 Lubiprostone (Amitiza) 24 mcg DAILY PO Last administered on 03/25/16 08:38; Admin Dose 24 MCG; Start 03/24/16 at 13:00 Diltiazem HCl (Cardizem) 60 mg Q6 PO Last administered on 03/25/16 12:36; Admin Dose 60 MG; Start 03/24/16 at 18:00 Assessment/Plan Additional Assessment/Plan IMPRESSION: 1. s/p Acute hypoxemic respiratory failure 2. Left lower lobe pneumonia with left effusion 3. Status post significant Hypernatremia. 4. Diabetes exacerbated by intravenous steroids 5. History of hypertension. 6. Atrial fibrillation with rapid ventricular rate 7. History of Coronary artery disease. 8. Anemia status post endoscopy findings noted. No active bleeding 9. 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 Encephalopathy likely toxic metabolic no significant findings on MRI RECOMMENDATIONS: 1. CPT 2. Supplemental oxygen to SpO2 > 90% 3. Continue current antibiotics and chest PT 4. Bronchodilators. 5. Noninvasive positive pressure ventilation if needed. 6. At this time would not pursue diagnostic left thoracentesis. Discussed with PILO Bianchi MD Mar 25, 2016 17:28
[2016-03-25] MEDS: LATANOPROST 0.005% 2.5 ML OPH BOTH EYES SCH (20:56)
[2016-03-25] MEDS: INSULIN GLARGINE [LANtus] 3 ML PEN SC SCH (20:58)
--- NOTE | 2016-03-25 23:45 | PN ---
Date/Time of Note Date/Time of Note DATE: 03/25/16 TIME: 23:43 Assessment/Plan VTE Prophylaxis VTE Prophylaxis Intervention: SCD's Lines/Catheters IV Catheter Type (from Nrsg): PICC Line Central line still needed: Yes (Fragile state, could require repeat blood transfusion in a hurry) Urinary Cath still in place: Yes Reason Cath still needed: other (indicate) (Disability, unable to get herself to the toilet or commode) Assessment/Plan Assessment/Plan [facility] 1. 85-year-old woman admitted 25 days ago (03/01/16) with respiratory distress. Today has been the best day I've seen, with her much more alert and responsive, albeit still not speaking in complete sentences. Breathing comfortably on oxygen per nasal cannula. She is tolerating tube feedings well via PEG. * Avoid benzodiazepines and narcotics * Aspiration precautions * Stop meropenem today, per ID; continue voriconazole (day 4) * Steroid taper to Solu-Medrol 20mg IV tomorrow AM, more gradually thereafter. 2. Constipation improved, secondary to improved sugar control and discontinuation of Fentanyl patch. EGD with no source of bleeding per Dr Zuniga * Occult fecal blood pending * Restart Eliquis once stools proved to be free of blood 3. Atrial fibrillation with episodes of RVR, better controlled now and back on Cardizem. * Hold Eliquis pending re-check on stool blood per GI, as above * Stable rate on Cardizem per PEG 60mg q6h. Can't consolidate into a single CD dose because of the PEG limitations. 4. Acute kidney injury, with known CKD. Creatinine back to baseline now 5. Anemia, acute: s/p 2 units pRBC on 03/16, Hb stable. Also with thrombocytopenia (75k/ul) that's stable, and severe lymphopenia (100/ul). * Consider PJP prophylaxis 6. Diabetes Mellitus. Blood glucose stable again today. Target on continuous tube feedings is 180. * Advance tube feedings * Maintain insulin orders unchanged for now 7. Hypertension. * Continue Cardizem as above * Losartan 25 mg PO BID, hold for SBP<110 * Clonidine PRN for SBP > 170 8. Pemphigoid disease per family * Continue on Cellcept. 9. Chronic pain, likely rebound from prolonged use of Fentanyl and poor sleep quality in the hospital 10 Nutrition: * Tube feedings as above. 11. UTI: E coli and now Cindy Glabrata, * Continue Voriconazole * Monitor Tong requirement 12. Prophylaxis: Holding Eliquis for now due to current concerns about GI bleeding. SCDs. Protonix for GI prophylaxis 13. Disposition: Bed located at [facility], possible transfer tomorrow if stools negative, heart rate controlled, and tolerating tube feedings well. I discussed with all the consultants yesterday, and all felt she was suitably stable to transfer to SNF. I spoke at length this morning wth the family, and the son insisted that Dr. Ahumada (PCP) should make the final determination. Still waiting for occult stool blood testing today that could reassure us without regard to restarting her anti-coagulation for atrial fibrillation stroke prevention. Joey Gonsalez MD PhD [phone] Subjective 24 Hr Interval Summary Free Text/Dictation Patient sitting up in bed, responding to questions with her son translating. No pain, nausea, dyspnea or headache. Caregiver and another person also by the bedside this morning. Exam/Review of Systems Vital Signs Vitals Vital Signs Date Time Temp Pulse Resp B/P Pulse Ox O2 Delivery O2 Flow Rate FiO2 03/25/16 23:10 Nasal Cannula 2.0 03/25/16 20:27 96 28 03/25/16 20:16 86 03/25/16 20:10 22 03/25/16 19:56 98.1 140/79 Intake and Output 03/24/16 03/24/16 03/25/16 15:00 23:00 07:00 Intake Total 100 ml 900 ml 900 ml Output Total 500 ml 800 ml Balance 100 ml 400 ml 100 ml Exam Constitutional: Awake, good eye contact, heavyset, tired-appearing, but breathing comfortably on 2L per NC Respiratory: Mild upper respiratory expiratory rhonchi and congestion ( clearing throat), with hypoventillatory bases, but otherwise clear to auscultation with good air movement Cardiovascular: Irregular rhythm, normal rate, symmetric radial pulses Gastrointestinal: bowel sounds positive, soft, trace tenderness, moderate tympany, PEG in place. Extremities: Symmetric pulses, stasis changes with induration around the proximal IT band of both hips, and hyperpigmentation of both distal calves. No cords in the calves. 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 Alert, difficult to assess orientation. But affect is much more positive than appreciated previously. Results Result Diagram: 03/24/1645 03/24/1645 Results 24 hrs Laboratory Tests Test 03/25/16 00:28 03/25/16 05:33 03/25/16 12:14 03/25/16 17:19 Bedside Glucose 184 149 184 211 Test 03/25/16 20:53 Bedside Glucose 243 H Medications Medications Current Medications Brimonidine Tartrate (Alphagan 0.2%) 1 drop Q8 BOTH EYES Last administered on 21:09; Admin Dose 1 DROP; Start 03/01/16 at 06:00 Latanoprost (Xalatan) 1 drop QHS BOTH EYES Last administered on 03/25/16 20:56 ; Admin Dose 1 DROP; Start 03/01/16 at 21:00 Acetaminophen (Tylenol Tab) 650 mg Q4H PRN PO pain/fever Last administered on 03/08/16at 12:49; Admin Dose 650 MG; Start 03/01/16 at 01:00 Morphine Sulfate (morphine) 2 mg Q2H PRN IV pain Last administered on 03/19/16 01:55; Admin Dose 2 MG; Start 03/01/16 at 01:00 Miscellaneous Information 1 ea NOTE XX ; Start 03/01/16 at 02:00 Glucose (Glutose) 15 gm Q15M PRN PO DECREASED GLUCOSE; Start 03/01/16 at 02:00 Glucose (Glutose) 22.5 gm Q15M PRN PO DECREASED GLUCOSE; Start 03/01/16 at 02: 00 Dextrose (D50w Syringe) 25 ml Q15M PRN IV DECREASED GLUCOSE Last administered on 03/13/16at 13:36; Admin Dose 25 ML; Start 03/01/16 at 02:00 Dextrose (D50w Syringe) 50 ml Q15M PRN IV DECREASED GLUCOSE Last administered on 03/13/16at 12:30; Admin Dose 50 ML; Start 03/01/16 at 02:00 Glucagon (Glucagen) 1 mg Q15M PRN IM DECREASED GLUCOSE; Start 03/01/16 at 02: 00 Glucose (Glutose) 15 gm Q15M PRN BUCCAL DECREASED GLUCOSE; Start 03/01/16 at 02:00 Diagnostic Test (Pha) (Accucheck) 1 ea 02 XX Last administered on 03/25/16 02: 47; Admin Dose 1 EA; Start 03/02/16 at 02:00 Bisacodyl (Dulcolax Supp) 10 mg DAILY PRN [place] CONSTIPATION Last administered on 03/25/16 14:53; Admin Dose 10 MG; Start 03/03/16 at 11:30 Clotrimazole (Lotrimin Cr) 1 applic BID TOP Last administered on 03/25/16 20:56 ; Admin Dose 1 APPLIC; Start 03/03/16 at 13:30 Ondansetron HCl (Zofran Inj) 4 mg Q4H PRN IV NAUSEA AND/OR VOMITING; Start at 23:30 Pantoprazole (Protonix Iv) 40 mg BID@06,18 IV Last administered on 03/25/16 17: 28; Admin Dose 40 MG; Start 03/10/16 at 06:00 Gabapentin (Neurontin) 300 mg Q8 GTB Last administered on 03/25/16 22:14; Admin Dose 300 MG; Start 03/13/16 at 06:00 Methylprednisolone Sodium Succinate (Solu-Medrol) 30 mg DAILY IV Last administered on 03/25/16 08:39; Admin Dose 30 MG; Start 03/13/16 at 09:30 Hydralazine HCl (Apresoline) 10 mg Q6H PRN IV SBP>160 Last administered on 01:28; Admin Dose 10 MG; Start 03/14/16 at 22:00 Insulin Glargine (Lantus) 50 unit QHS SC Last administered on 03/25/16 20:58; Admin Dose 50 UNIT; Start 03/18/16 at 21:00 Insulin Aspart (Novolog Insulin Pen) (Adult SC Insulin - Moder... Q6 SC Last administered on 03/25/16 17:26; Admin Dose 4 UNIT; Start 03/18/16 at 06:30 Docusate Sodium (Colace Liquid Cup) 100 mg BID PEG Last administered on 20:55; Admin Dose 100 MG; Start 03/22/16 at 09:00 Mycophenolate Mofetil (Cellcept) 500 mg BID PEG Last administered on 03/25/16 21:17; Admin Dose 500 MG; Start 03/22/16 at 09:00 Voriconazole (Voriconazole) 200 mg BID GTB Last administered on 03/25/16 20:55 ; Admin Dose 200 MG; Start 03/22/16 at 21:00 Polyethylene Glycol (Miralax) 17 gm TID GTB Last administered on 03/25/16 20:56 ; Admin Dose 17 GM; Start 03/22/16 at 21:00 Losartan Potassium (Cozaar) 25 mg BID PEG Last administered on 03/25/16 20:56; Admin Dose 25 MG; Start 03/23/16 at 21:00 Clonidine (Catapres) 0.1 mg Q8H PRN PEG SBP GREATER THAN 160; Start 03/23/16 at 11:30 Lubiprostone (Amitiza) 24 mcg DAILY PO Last administered on 03/25/16 08:38; Admin Dose 24 MCG; Start 03/24/16 at 13:00 Diltiazem HCl (Cardizem) 60 mg Q6 PO Last administered on 03/25/16 17:28; Admin Dose 60 MG; Start 03/24/16 at 18:00 TRACI GONSALEZ M.D. Mar 25, 2016 23:45
[2016-03-26] VITALS (14 sets, daily range): BP systolic 108–171; BP diastolic 57–74; PULSE 96–152; RESP 16–20
[2016-03-26] MEDS: DILTIAZEM 60 MG TAB PEG SCH ×4 (00:11→17:34)
[2016-03-26] MEDS: Insulin NOVOLOG SS MODERATE Algorithm(NPO/TPN/ENTERAL FEEDS) SC SCH ×4 (00:30→17:53)
[2016-03-26] MEDS: ALBUTEROL/IPRATROPIUM (NEB) 3 ML AMP HHN SCH ×4 (01:49→19:54)
[2016-03-26] MEDS: ACCUCHECK AT 2AM (Patients on SS coverage) XX SCH (02:00)
[2016-03-26] MEDS: PANTOPRAZOLE 40 MG INJ IV SCH (05:21)
[2016-03-26] MEDS: GABAPENTIN 300 MG CAP GTB SCH ×3 (05:21→21:33)
[2016-03-26] MEDS: BRIMONIDINE 0.2% 5 ML BTL BOTH EYES SCH ×3 (05:22→21:33)
[2016-03-26] MEDS: CLOTRIMAZOLE 1% 30 GM CR TOP SCH ×2 (09:06→21:34)
[2016-03-26] MEDS: MYCOPHENOLATE MOFETIL PEG SCH ×2 (09:06→21:32)
[2016-03-26] MEDS: VORICONAZOLE GTB SCH ×3 (09:06→21:44)
[2016-03-26] MEDS: LUBIPROSTONE 24 MCG CAP PO SCH (09:06)
[2016-03-26] MEDS: METHYLPREDNISOLONE 40 MG INJ IV SCH (09:06)
[2016-03-26] MEDS: DOCUSATE SODIUM 10 MG/ML (10ML CUP) PEG SCH ×2 (09:06→21:32)
[2016-03-26] MEDS: LOSARTAN 25 MG TAB PEG SCH ×2 (09:06→21:32)
[2016-03-26] MEDS: POLYETHYLENE GLYCOL 17 GM PACKET GTB SCH ×3 (09:07→21:32)
[2016-03-26 10:48] LABS: BASOPHILS % 0.2 % (0.0-2.0); HEMATOCRIT 32.2 % (37.0-47.0); HEMOGLOBIN 10.7 g/dl (12.0-16.0); LYMPHOCYTES # 0.6 10^3/ul (0.8-2.9); LYMPHOCYTES % 7.6 % (15.0-51.0); MEAN CORPUSCULAR HEMOGLOBIN 27.7 pg (29.0-33.0); MEAN CORPUSCULAR HGB CONC 33.1 g/dl (32.0-37.0); MEAN CORPUSCULAR VOLUME 83.8 fl (82.0-101.0); MEAN PLATELET VOLUME 9.7 fl (7.4-10.4); MONOCYTE # 0.6 10^3/ul (0.3-0.9); MONOCYTES % 7.5 % (0.0-11.0); NEUTROPHIL # 6.4 10^3/ul (1.6-7.5); NEUTROPHILS % 84.7 % (39.0-77.0); PLATELET COUNT 119 10^3/UL (140-440); RED BLOOD COUNT 3.85 10^6/ul (4.20-5.40); RED CELL DISTRIBUTION WIDTH 17.3 % (11.5-14.5); UNCORRECTED WBC 7.6 10^3/ul (4.8-10.8); WHITE BLOOD COUNT 7.6 10^3/ul (4.8-10.8)
[2016-03-26 10:54] LABS: CONDITION 1; LH ANALYZER COMMENTS 1
[2016-03-26 10:55] LABS: POTASSIUM 5.5 mmol/L (3.5-5.1)
[2016-03-26 10:58] LABS: CREATININE 0.9 mg/dl (0.44-1.00)
[2016-03-26 10:59] LABS: CALCIUM 8.3 mg/dl (8.4-10.2); MAGNESIUM 2.6 mg/dl (1.7-2.5)
--- NOTE | 2016-03-26 12:17 | CONS ---
Date/Time of Note Date/Time of Note DATE: 03/26/16 TIME: 12:15 Consult Date/Type/Reason Admit Date/Time Feb 29, 2016 at 18:54 Initial Consult Date 03/08/16 Type of Consultation: ID Ordering Provider: KANCHAN LEONARD MD Subjective awake, looks comfortable, no fevers Objective Vital Signs Date Time Temp Pulse Resp B/P Pulse Ox O2 Delivery O2 Flow Rate FiO2 03/26/16 11:37 97.9 68 18 140/68 99 03/26/16 10:08 Nasal Cannula 2.0 03/26/16 08:20 21 Intake and Output 03/25/16 03/25/16 03/26/16 15:00 23:00 07:00 Intake Total 900 ml 850 ml Output Total 550 ml 950 ml Balance 350 ml -100 ml Results/Medications Result Diagram: 03/26/16 1030 03/26/16 1030 Results 24 hrs Laboratory Tests Test 03/25/16 17:19 03/25/16 20:53 03/26/16 00:20 03/26/16 05:29 Bedside Glucose 211 243 H 264 H 204 Test 03/26/16 10:30 Anion Gap 12 Basophils # 0.0 Basophils % 0.2 Blood Morphology Comment Blood Urea Nitrogen 52 H Calcium Level 8.3 L Carbon Dioxide Level 30 Chloride Level 101 Creatinine 0.90 Eosinophils # 0.0 Eosinophils % 0.0 Glucose Level 257 H Hematocrit 32.2 L Hemoglobin 10.7 L Lymphocytes # 0.6 L Lymphocytes % 7.6 L Magnesium Level 2.6 H Mean Corpuscular Hemoglobin 27.7 L Mean Corpuscular Hemoglobin Concent 33.1 Mean Corpuscular Volume 83.8 Mean Platelet Volume 9.7 Monocytes # 0.6 Monocytes % 7.5 Neutrophils # 6.4 Neutrophils % 84.7 H Nucleated Red Blood Cells # 0.0 Nucleated Red Blood Cells % 0.0 Platelet Count 119 #L Potassium Level 5.5 H Red Blood Count 3.85 L Red Cell Distribution Width 17.3 H Sodium Level 137 White Blood Count 7.6 Medications Current Medications Brimonidine Tartrate (Alphagan 0.2%) 1 drop Q8 BOTH EYES Last administered on t 05:22; Admin Dose 1 DROP; Start 03/01/16 at 06:00 Latanoprost (Xalatan) 1 drop QHS BOTH EYES Last administered on 03/25/16 20:56 ; Admin Dose 1 DROP; Start 03/01/16 at 21:00 Acetaminophen (Tylenol Tab) 650 mg Q4H PRN PO pain/fever Last administered on 03/08/16at 12:49; Admin Dose 650 MG; Start 03/01/16 at 01:00 Morphine Sulfate (morphine) 2 mg Q2H PRN IV pain Last administered on 03/19/16 01:55; Admin Dose 2 MG; Start 03/01/16 at 01:00 Miscellaneous Information 1 ea NOTE XX ; Start 03/01/16 at 02:00 Glucose (Glutose) 15 gm Q15M PRN PO DECREASED GLUCOSE; Start 03/01/16 at 02:00 Glucose (Glutose) 22.5 gm Q15M PRN PO DECREASED GLUCOSE; Start 03/01/16 at 02: 00 Dextrose (D50w Syringe) 25 ml Q15M PRN IV DECREASED GLUCOSE Last administered on 03/13/16at 13:36; Admin Dose 25 ML; Start 03/01/16 at 02:00 Dextrose (D50w Syringe) 50 ml Q15M PRN IV DECREASED GLUCOSE Last administered on 03/13/16at 12:30; Admin Dose 50 ML; Start 03/01/16 at 02:00 Glucagon (Glucagen) 1 mg Q15M PRN IM DECREASED GLUCOSE; Start 03/01/16 at 02: 00 Glucose (Glutose) 15 gm Q15M PRN BUCCAL DECREASED GLUCOSE; Start 03/01/16 at 02:00 Diagnostic Test (Pha) (Accucheck) 1 ea 02 XX Last administered on 03/25/16 02: 47; Admin Dose 1 EA; Start 03/02/16 at 02:00 Bisacodyl (Dulcolax Supp) 10 mg DAILY PRN [place] CONSTIPATION Last administered on 03/25/16 14:53; Admin Dose 10 MG; Start 03/03/16 at 11:30 Clotrimazole (Lotrimin Cr) 1 applic BID TOP Last administered on 03/26/16 09:06 ; Admin Dose 1 APPLIC; Start 03/03/16 at 13:30 Ondansetron HCl (Zofran Inj) 4 mg Q4H PRN IV NAUSEA AND/OR VOMITING; Start at 23:30 Pantoprazole (Protonix Iv) 40 mg BID@06,18 IV Last administered on 03/26/16 05: 21; Admin Dose 40 MG; Start 03/10/16 at 06:00 Gabapentin (Neurontin) 300 mg Q8 GTB Last administered on 03/26/16 05:21; Admin Dose 300 MG; Start 03/13/16 at 06:00 Methylprednisolone Sodium Succinate (Solu-Medrol) 30 mg DAILY IV Last administered on 03/26/16 09:06; Admin Dose 30 MG; Start 03/13/16 at 09:30 Hydralazine HCl (Apresoline) 10 mg Q6H PRN IV SBP>160 Last administered on 01:28; Admin Dose 10 MG; Start 03/14/16 at 22:00 Insulin Glargine (Lantus) 50 unit QHS SC Last administered on 03/25/16 20:58; Admin Dose 50 UNIT; Start 03/18/16 at 21:00 Insulin Aspart (Novolog Insulin Pen) (Adult SC Insulin - Moder... Q6 SC Last administered on 03/26/16 05:32; Admin Dose 4 UNIT; Start 03/18/16 at 06:30 Docusate Sodium (Colace Liquid Cup) 100 mg BID PEG Last administered on 09:06; Admin Dose 100 MG; Start 03/22/16 at 09:00 Mycophenolate Mofetil (Cellcept) 500 mg BID PEG Last administered on 03/26/16 09:06; Admin Dose 500 MG; Start 03/22/16 at 09:00 Voriconazole (Voriconazole) 200 mg BID GTB Last administered on 03/26/16 09:06 ; Admin Dose 200 MG; Start 03/22/16 at 21:00 Polyethylene Glycol (Miralax) 17 gm TID GTB Last administered on 03/26/16 09:07 ; Admin Dose 17 GM; Start 03/22/16 at 21:00 Losartan Potassium (Cozaar) 25 mg BID PEG Last administered on 03/26/16 09:06; Admin Dose 25 MG; Start 03/23/16 at 21:00 Clonidine (Catapres) 0.1 mg Q8H PRN PEG SBP GREATER THAN 160 Last administered on 03/26/16 00:12; Admin Dose 0.1 MG; Start 03/23/16 at 11:30 Lubiprostone (Amitiza) 24 mcg DAILY PO Last administered on 03/26/16 09:06; Admin Dose 24 MCG; Start 03/24/16 at 13:00 Diltiazem HCl (Cardizem) 60 mg Q6 PEG Last administered on 03/26/16 05:21; Admin Dose 60 MG; Start 03/26/16 at 00:00 Assessment/Plan Chief Complaint/Hosp Course MICROBIOLOGY: Urine culture repeated on 03/19/2016 growing Cindy glabrata. INDWELLINGS: PICC line, Tong, PEG. ANTIMICROBIALS: 1. Vfend PHYSICAL EXAMINATION: GENERAL: This is an obese, chronically ill-appearing, elderly woman who is awake, in no distress. HEENT: Head atraumatic, normocephalic. Sclerae anicteric. Buccal mucosa dry. NECK: Obese. CHEST: Rise symmetrical. Breath sounds CTA, diminished to bases, scattered crackles upper lobes. HEART: S1, S2. ABDOMEN: Distended, soft, bowel tones present. EXTREMITIES: Without cyanosis. ASSESSMENT: 1. S/p sepsis 2. S/p acute respiratory failure secondary to secretion retention, possibly ongoing aspiration, sputum culture grew Escherichia coli. 3. Urinary tract infection. 4. Dysphagia, status post percutaneous endoscopic gastrostomy. 5. Acute renal failure, improved. 6. Thrombocytopenia, possibly secondary to vancomycin. 7. Paroxysmal atrial fibrillation. 8. Status post fecal impaction with chronic constipation. 9. 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 PLAN: Remains stable, no fevers, continue present care, aspiration precautions. PRISCA staff/chairman and chief executive officer at bedside Problems: LEÓN PAK NP Mar 26, 2016 12:17
--- NOTE | 2016-03-26 12:34 | CONS ---
Date/Time of Note Date/Time of Note DATE: 03/26/16 TIME: 12:31 Assessment/Plan Assessment/Plan Additional Assessment/Plan 1.Anemia, improving - transfuse PRN hgb < 8 2. Tachycardia with atrial fibrillation. - cardiac stabilization 3. Constipation: resolving 4. Acute Respiratory failure, secondary to bronchitis/URI/pneumonia. Reported history of asthma. Immunosuppressed with CellCept chronically - management per primary and other consultants 5. Poor nutrition/protein calorie malnutrition - Status post EGD + PEG -Monitor tube feed every 6 hours, hold for residual >150 mL Further recommendations depend on clinical course Patient seen in collaboration with Dr. Zuniga Consultation Date/Type/Reason Admit Date/Time Feb 29, 2016 at 18:54 Initial Consult Date 03/08/16 Type of Consultation: GI Referring Provider: KANCHAN LEONARD MD 24 HR Interval Summary Free Text/Dictation Tube feed at goal with minimal residual, Hgb stable If stool OB is neg, recommend OP colonoscopy prn, and start anticoagulation If stool OB is pos, recommend IP colonoscopy and anticoagulation after procedure Exam/Review of Systems Vital Signs Vitals Vital Signs Date Time Temp Pulse Resp B/P Pulse Ox O2 Delivery O2 Flow Rate FiO2 03/26/16 12:21 127 03/26/16 11:37 97.9 18 140/68 99 03/26/16 10:08 Nasal Cannula 2.0 03/26/16 08:20 21 Intake and Output 03/25/16 03/25/16 03/26/16 15:00 23:00 07:00 Intake Total 900 ml 850 ml Output Total 550 ml 950 ml Balance 350 ml -100 ml Results Result Diagram: 03/26/16 1030 03/26/16 1030 Results 24 hrs Laboratory Tests Test 03/25/16 17:19 03/25/16 20:53 03/26/16 00:20 03/26/16 05:29 Bedside Glucose 211 243 H 264 H 204 Test 03/26/16 10:30 03/26/16 12:15 Anion Gap 12 Basophils # 0.0 Basophils % 0.2 Blood Morphology Comment Blood Urea Nitrogen 52 H Calcium Level 8.3 L Carbon Dioxide Level 30 Chloride Level 101 Creatinine 0.90 Eosinophils # 0.0 Eosinophils % 0.0 Glucose Level 257 H Hematocrit 32.2 L Hemoglobin 10.7 L Lymphocytes # 0.6 L Lymphocytes % 7.6 L Magnesium Level 2.6 H Mean Corpuscular Hemoglobin 27.7 L Mean Corpuscular Hemoglobin Concent 33.1 Mean Corpuscular Volume 83.8 Mean Platelet Volume 9.7 Monocytes # 0.6 Monocytes % 7.5 Neutrophils # 6.4 Neutrophils % 84.7 H Nucleated Red Blood Cells # 0.0 Nucleated Red Blood Cells % 0.0 Platelet Count 119 #L Potassium Level 5.5 H Red Blood Count 3.85 L Red Cell Distribution Width 17.3 H Sodium Level 137 White Blood Count 7.6 Bedside Glucose 301 H Medications Medications Current Medications Brimonidine Tartrate (Alphagan 0.2%) 1 drop Q8 BOTH EYES Last administered on 05:22; Admin Dose 1 DROP; Start 03/01/16 at 06:00 Latanoprost (Xalatan) 1 drop QHS BOTH EYES Last administered on 03/25/16 20:56 ; Admin Dose 1 DROP; Start 03/01/16 at 21:00 Acetaminophen (Tylenol Tab) 650 mg Q4H PRN PO pain/fever Last administered on 03/08/16at 12:49; Admin Dose 650 MG; Start 03/01/16 at 01:00 Morphine Sulfate (morphine) 2 mg Q2H PRN IV pain Last administered on 03/19/16 01:55; Admin Dose 2 MG; Start 03/01/16 at 01:00 Miscellaneous Information 1 ea NOTE XX ; Start 03/01/16 at 02:00 Glucose (Glutose) 15 gm Q15M PRN PO DECREASED GLUCOSE; Start 03/01/16 at 02:00 Glucose (Glutose) 22.5 gm Q15M PRN PO DECREASED GLUCOSE; Start 03/01/16 at 02: 00 Dextrose (D50w Syringe) 25 ml Q15M PRN IV DECREASED GLUCOSE Last administered on 03/13/16at 13:36; Admin Dose 25 ML; Start 03/01/16 at 02:00 Dextrose (D50w Syringe) 50 ml Q15M PRN IV DECREASED GLUCOSE Last administered on 03/13/16at 12:30; Admin Dose 50 ML; Start 03/01/16 at 02:00 Glucagon (Glucagen) 1 mg Q15M PRN IM DECREASED GLUCOSE; Start 03/01/16 at 02: 00 Glucose (Glutose) 15 gm Q15M PRN BUCCAL DECREASED GLUCOSE; Start 03/01/16 at 02:00 Diagnostic Test (Pha) (Accucheck) 1 ea 02 XX Last administered on 03/25/16 02: 47; Admin Dose 1 EA; Start 03/02/16 at 02:00 Bisacodyl (Dulcolax Supp) 10 mg DAILY PRN [place] CONSTIPATION Last administered on 03/25/16 14:53; Admin Dose 10 MG; Start 03/03/16 at 11:30 Clotrimazole (Lotrimin Cr) 1 applic BID TOP Last administered on 03/26/16 09:06 ; Admin Dose 1 APPLIC; Start 03/03/16 at 13:30 Ondansetron HCl (Zofran Inj) 4 mg Q4H PRN IV NAUSEA AND/OR VOMITING; Start at 23:30 Pantoprazole (Protonix Iv) 40 mg BID@06,18 IV Last administered on 03/26/16 05: 21; Admin Dose 40 MG; Start 03/10/16 at 06:00 Gabapentin (Neurontin) 300 mg Q8 GTB Last administered on 03/26/16 05:21; Admin Dose 300 MG; Start 03/13/16 at 06:00 Methylprednisolone Sodium Succinate (Solu-Medrol) 30 mg DAILY IV Last administered on 03/26/16 09:06; Admin Dose 30 MG; Start 03/13/16 at 09:30 Hydralazine HCl (Apresoline) 10 mg Q6H PRN IV SBP>160 Last administered on 01:28; Admin Dose 10 MG; Start 03/14/16 at 22:00 Insulin Glargine (Lantus) 50 unit QHS SC Last administered on 03/25/16 20:58; Admin Dose 50 UNIT; Start 03/18/16 at 21:00 Insulin Aspart (Novolog Insulin Pen) (Adult SC Insulin - Moder... Q6 SC Last administered on 03/26/16 12:22; Admin Dose 10 UNIT; Start 03/18/16 at 06:30 Docusate Sodium (Colace Liquid Cup) 100 mg BID PEG Last administered on 09:06; Admin Dose 100 MG; Start 03/22/16 at 09:00 Mycophenolate Mofetil (Cellcept) 500 mg BID PEG Last administered on 03/26/16 09:06; Admin Dose 500 MG; Start 03/22/16 at 09:00 Voriconazole (Voriconazole) 200 mg BID GTB Last administered on 03/26/16 09:06 ; Admin Dose 200 MG; Start 03/22/16 at 21:00 Polyethylene Glycol (Miralax) 17 gm TID GTB Last administered on 03/26/16 12:24 ; Admin Dose 17 GM; Start 03/22/16 at 21:00 Losartan Potassium (Cozaar) 25 mg BID PEG Last administered on 03/26/16 09:06; Admin Dose 25 MG; Start 03/23/16 at 21:00 Clonidine (Catapres) 0.1 mg Q8H PRN PEG SBP GREATER THAN 160 Last administered on 03/26/16 00:12; Admin Dose 0.1 MG; Start 03/23/16 at 11:30 Lubiprostone (Amitiza) 24 mcg DAILY PO Last administered on 03/26/16 09:06; Admin Dose 24 MCG; Start 03/24/16 at 13:00 Diltiazem HCl (Cardizem) 60 mg Q6 PEG Last administered on 03/26/16 12:24; Admin Dose 60 MG; Start 03/26/16 at 00:00 TR AMES Mar 26, 2016 12:34
--- NOTE | 2016-03-26 12:58 | PN ---
Date/Time of Note Date/Time of Note DATE: 03/26/16 TIME: 11:55 Assessment/Plan VTE Prophylaxis VTE Prophylaxis Intervention: SCD's Lines/Catheters IV Catheter Type (from Nrsg): PICC Line Central line still needed: Yes (for IV access ) Urinary Cath still in place: Yes Reason Cath still needed: other (indicate) (monitor UOP, will discontinue ) Assessment/Plan Assessment/Plan 85 yo female with: 1. Respiratory distress and insufficiency, much improved now and on [address] head negative, MRI Brain with no acute findings, CT chest stable. Fentanyl patch removed and Ativan discontinued per Neurology and absolutely appropriately so. WBC down to normal and tapering steroids down and will get final recs for IV Meropenem today Still on Aspiration protocol, OFF Vanco as of last week She failed bedside speech swallow s/p PEG tube placement Continue resp care and titration of steroids to OFF in the next 3 days 2. Constipation improved overall, likely secondary to her hyperglycemia and Fentanyl patch use. Previous CT abd/pelvis showed no evidence of abdominopelvic mass, lymphadenopathy or focal acute inflammatory pathology. FOB was positive but Hb now stable. Again no BM for a few days, GI aware and now that PEG tube placed, getting bowel regimen via PEG EGD with no source of bleeding per Dr Zuniga so will eventually need Colonoscopy , can be done as outpatient in 4 to 6 weeks if FOBT negative. 3. Atrial fibrillation with episodes of RVR, better controlled now and back on Cardizem. Renal function back to normal now Resume Eliquis if FOBT negative or no need to colonoscopy on this admission. K and Mag up, mild pre renal azotemia, monitor and increasing free water. 4. JUAN with known CKD: Renal function back to baseline and even more improved Increase free water 5. Anemia, acute: s/p 2 units pRBC on 03/16, Hb stable at 10.4 today and has remained stable over past few days, no acute GIB noted and EGD with no source of bleeding, only mild esophagitis reported Platelets better to 119 today. 6. Diabetes Mellitus: On tube feeding, adjust Lantus and SSI accordingly. 7. Hypertension. Continue Cardizem and titrating accordingly, on Losartan 25 mg po bid, hold for SBP<110 and add clonidine prn 8. Pemphigoid disease per family: on Cellcept. 9. Chronic Pain: on fentanyl patch, I have approached the family to d/c fentanyl patch as probably part of cause of bowel issues but they have been reluctant/resistant. Given now issues with MS, and ongoing GI issues, Fentanyl patch was discontinued and patient now restless and getting agitated which per Family are her signs of withdrawal when of the patch, will resume at low dose of 25 mcg trial. 10 Nutrition: tolerating tube feeding but may need to be adjusted by dietary today. Continue free water. 11. UTI: E coli and now Cindy Glabrata, On meropenem, will get final recs form ID Also on Voriconazole, d/c Tong Prophylaxis: Possible to resume Eliquis if FOBT negative, for now SCDs. Protonix for GI prophylaxis Disposition: Son at bedside updated and FOBT taken, results pending SNF discharge pending, family requesting private room at [facility] or [facility] Subjective 24 Hr Interval Summary Free Text/Dictation Patient awake and remains stable BM today x 1 and FOBT pending Labs OK and per PT eval patient will need SNF placement Patient now awake a little agitated, per family usually gets that way when withdrawing from Fentanyl patch, will resume at low dose of 25 mcg daily Also will d/c Tong in anticipation of discharge to SNF when bed available Exam/Review of Systems Vital Signs Vitals Vital Signs Date Time Temp Pulse Resp B/P Pulse Ox O2 Delivery O2 Flow Rate FiO2 03/26/16 11:37 97.9 68 18 140/68 99 03/26/16 10:08 Nasal Cannula 2.0 03/26/16 08:20 21 Intake and Output 03/25/16 03/25/16 03/26/16 15:00 23:00 07:00 Intake Total 900 ml 850 ml Output Total 550 ml 950 ml Balance 350 ml -100 ml Exam Constitutional: alert, obese, oriented Respiratory: clear to auscultation, normal air movement Cardiovascular: irregular rhythm (a fib ) Gastrointestinal: non-tender, soft Musculoskeletal: nl extremities to inspection Extremities: normal pulses, other (no edema, clubing or cyanosis ) Neurological: FLOWER PLANTER II-XII intact, nl mental status, nl speech, other ( generalised weakness ) Results Result Diagram: 03/26/16 1030 03/26/16 1030 Results 24 hrs Laboratory Tests Test 03/25/16 12:14 03/25/16 17:19 03/25/16 20:53 03/26/16 00:20 Bedside Glucose 184 211 243 H 264 H Test 03/26/16 05:29 03/26/16 10:30 Bedside Glucose 204 Anion Gap 12 Basophils # 0.0 Basophils % 0.2 Blood Morphology Comment Blood Urea Nitrogen 52 H Calcium Level 8.3 L Carbon Dioxide Level 30 Chloride Level 101 Creatinine 0.90 Eosinophils # 0.0 Eosinophils % 0.0 Glucose Level 257 H Hematocrit 32.2 L Hemoglobin 10.7 L Lymphocytes # 0.6 L Lymphocytes % 7.6 L Magnesium Level 2.6 H Mean Corpuscular Hemoglobin 27.7 L Mean Corpuscular Hemoglobin Concent 33.1 Mean Corpuscular Volume 83.8 Mean Platelet Volume 9.7 Monocytes # 0.6 Monocytes % 7.5 Neutrophils # 6.4 Neutrophils % 84.7 H Nucleated Red Blood Cells # 0.0 Nucleated Red Blood Cells % 0.0 Platelet Count 119 #L Potassium Level 5.5 H Red Blood Count 3.85 L Red Cell Distribution Width 17.3 H Sodium Level 137 White Blood Count 7.6 Medications Medications Current Medications Brimonidine Tartrate (Alphagan 0.2%) 1 drop Q8 BOTH EYES Last administered on 05:22; Admin Dose 1 DROP; Start 03/01/16 at 06:00 Latanoprost (Xalatan) 1 drop QHS BOTH EYES Last administered on 03/25/16 20:56 ; Admin Dose 1 DROP; Start 03/01/16 at 21:00 Acetaminophen (Tylenol Tab) 650 mg Q4H PRN PO pain/fever Last administered on 03/08/16at 12:49; Admin Dose 650 MG; Start 03/01/16 at 01:00 Morphine Sulfate (morphine) 2 mg Q2H PRN IV pain Last administered on 03/19/16 01:55; Admin Dose 2 MG; Start 03/01/16 at 01:00 Miscellaneous Information 1 ea NOTE XX ; Start 03/01/16 at 02:00 Glucose (Glutose) 15 gm Q15M PRN PO DECREASED GLUCOSE; Start 03/01/16 at 02:00 Glucose (Glutose) 22.5 gm Q15M PRN PO DECREASED GLUCOSE; Start 03/01/16 at 02: 00 Dextrose (D50w Syringe) 25 ml Q15M PRN IV DECREASED GLUCOSE Last administered on 03/13/16at 13:36; Admin Dose 25 ML; Start 03/01/16 at 02:00 Dextrose (D50w Syringe) 50 ml Q15M PRN IV DECREASED GLUCOSE Last administered on 03/13/16at 12:30; Admin Dose 50 ML; Start 03/01/16 at 02:00 Glucagon (Glucagen) 1 mg Q15M PRN IM DECREASED GLUCOSE; Start 03/01/16 at 02: 00 Glucose (Glutose) 15 gm Q15M PRN BUCCAL DECREASED GLUCOSE; Start 03/01/16 at 02:00 Diagnostic Test (Pha) (Accucheck) 1 ea 02 XX Last administered on 03/25/16 02: 47; Admin Dose 1 EA; Start 03/02/16 at 02:00 Bisacodyl (Dulcolax Supp) 10 mg DAILY PRN [place] CONSTIPATION Last administered on 03/25/16 14:53; Admin Dose 10 MG; Start 03/03/16 at 11:30 Clotrimazole (Lotrimin Cr) 1 applic BID TOP Last administered on 03/26/16 09:06 ; Admin Dose 1 APPLIC; Start 03/03/16 at 13:30 Ondansetron HCl (Zofran Inj) 4 mg Q4H PRN IV NAUSEA AND/OR VOMITING; Start at 23:30 Pantoprazole (Protonix Iv) 40 mg BID@06,18 IV Last administered on 03/26/16 05: 21; Admin Dose 40 MG; Start 03/10/16 at 06:00 Gabapentin (Neurontin) 300 mg Q8 GTB Last administered on 03/26/16 05:21; Admin Dose 300 MG; Start 03/13/16 at 06:00 Methylprednisolone Sodium Succinate (Solu-Medrol) 30 mg DAILY IV Last administered on 03/26/16 09:06; Admin Dose 30 MG; Start 03/13/16 at 09:30 Hydralazine HCl (Apresoline) 10 mg Q6H PRN IV SBP>160 Last administered on 01:28; Admin Dose 10 MG; Start 03/14/16 at 22:00 Insulin Glargine (Lantus) 50 unit QHS SC Last administered on 03/25/16 20:58; Admin Dose 50 UNIT; Start 03/18/16 at 21:00 Insulin Aspart (Novolog Insulin Pen) (Adult SC Insulin - Moder... Q6 SC Last administered on 03/26/16 05:32; Admin Dose 4 UNIT; Start 03/18/16 at 06:30 Docusate Sodium (Colace Liquid Cup) 100 mg BID PEG Last administered on 09:06; Admin Dose 100 MG; Start 03/22/16 at 09:00 Mycophenolate Mofetil (Cellcept) 500 mg BID PEG Last administered on 03/26/16 09:06; Admin Dose 500 MG; Start 03/22/16 at 09:00 Voriconazole (Voriconazole) 200 mg BID GTB Last administered on 03/26/16 09:06 ; Admin Dose 200 MG; Start 03/22/16 at 21:00 Polyethylene Glycol (Miralax) 17 gm TID GTB Last administered on 03/26/16 09:07 ; Admin Dose 17 GM; Start 03/22/16 at 21:00 Losartan Potassium (Cozaar) 25 mg BID PEG Last administered on 03/26/16 09:06; Admin Dose 25 MG; Start 03/23/16 at 21:00 Clonidine (Catapres) 0.1 mg Q8H PRN PEG SBP GREATER THAN 160 Last administered on 03/26/16 00:12; Admin Dose 0.1 MG; Start 03/23/16 at 11:30 Lubiprostone (Amitiza) 24 mcg DAILY PO Last administered on 03/26/16 09:06; Admin Dose 24 MCG; Start 03/24/16 at 13:00 Diltiazem HCl (Cardizem) 60 mg Q6 PEG Last administered on 03/26/16 05:21; Admin Dose 60 MG; Start 03/26/16 at 00:00 AISHA TINEO Mar 26, 2016 12:05
--- NOTE | 2016-03-26 15:31 | CONS ---
Date/Time of Note Date/Time of Note DATE: 03/26/16 TIME: 15:29 Assessment/Plan Assessment/Plan Additional Assessment/Plan Atrial fibrillation Respiratory failure Preserved ejection fraction Possible aspiration pneumonia Hypertension Anemia -Heart rate better controlled on Cardizem, given medications needed to be crushed and Rissa PEG, short acting Cardizem is being used. Would give one dose of IV Lasix today and continue on starting from tomorrow as long as needed. Anticoagulation on hold until okay to resume by our GI colleagues. Consultation Date/Type/Reason Admit Date/Time Feb 29, 2016 at 18:54 Initial Consult Date 03/17/16 Type of Consultation: cv Referring Provider: KANCHAN LEONARD MD 24 HR Interval Summary Free Text/Dictation Patient more awake today as per age at bedside, following more commands Exam/Review of Systems Vital Signs Vitals Vital Signs Date Time Temp Pulse Resp B/P Pulse Ox O2 Delivery O2 Flow Rate FiO2 03/26/16 14:04 93 21 03/26/16 14:03 73 23 03/26/16 11:37 97.9 140/68 03/26/16 10:08 Nasal Cannula 2.0 Intake and Output 03/25/16 03/25/16 03/26/16 15:00 23:00 07:00 Intake Total 900 ml 850 ml Output Total 550 ml 950 ml Balance 350 ml -100 ml Exam Follows some basic commands, no apparent distress Constitutional: alert Head: normocephalic Neck: supple Respiratory: other (course breath sounds bilaterally, no wheezing) Cardiovascular: irregular rhythm, other (S1-S2 heard) Gastrointestinal: bowel sounds, non-tender, soft Extremities: edema Results Result Diagram: 03/26/16 1030 03/26/16 1030 Results 24 hrs Laboratory Tests Test 03/25/16 17:19 03/25/16 20:53 03/26/16 00:20 03/26/16 05:29 Bedside Glucose 211 243 H 264 H 204 Test 03/26/16 10:30 03/26/16 12:15 Anion Gap 12 Basophils # 0.0 Basophils % 0.2 Blood Morphology Comment Blood Urea Nitrogen 52 H Calcium Level 8.3 L Carbon Dioxide Level 30 Chloride Level 101 Creatinine 0.90 Eosinophils # 0.0 Eosinophils % 0.0 Glucose Level 257 H Hematocrit 32.2 L Hemoglobin 10.7 L Lymphocytes # 0.6 L Lymphocytes % 7.6 L Magnesium Level 2.6 H Mean Corpuscular Hemoglobin 27.7 L Mean Corpuscular Hemoglobin Concent 33.1 Mean Corpuscular Volume 83.8 Mean Platelet Volume 9.7 Monocytes # 0.6 Monocytes % 7.5 Neutrophils # 6.4 Neutrophils % 84.7 H Nucleated Red Blood Cells # 0.0 Nucleated Red Blood Cells % 0.0 Platelet Count 119 #L Potassium Level 5.5 H Red Blood Count 3.85 L Red Cell Distribution Width 17.3 H Sodium Level 137 White Blood Count 7.6 Bedside Glucose 301 H Medications Medications Current Medications Brimonidine Tartrate (Alphagan 0.2%) 1 drop Q8 BOTH EYES Last administered on 14:48; Admin Dose 1 DROP; Start 03/01/16 at 06:00 Latanoprost (Xalatan) 1 drop QHS BOTH EYES Last administered on 03/25/16 20:56 ; Admin Dose 1 DROP; Start 03/01/16 at 21:00 Acetaminophen (Tylenol Tab) 650 mg Q4H PRN PO pain/fever Last administered on 03/08/16at 12:49; Admin Dose 650 MG; Start 03/01/16 at 01:00 Morphine Sulfate (morphine) 2 mg Q2H PRN IV pain Last administered on 03/19/16 01:55; Admin Dose 2 MG; Start 03/01/16 at 01:00 Miscellaneous Information 1 ea NOTE XX ; Start 03/01/16 at 02:00 Glucose (Glutose) 15 gm Q15M PRN PO DECREASED GLUCOSE; Start 03/01/16 at 02:00 Glucose (Glutose) 22.5 gm Q15M PRN PO DECREASED GLUCOSE; Start 03/01/16 at 02: 00 Dextrose (D50w Syringe) 25 ml Q15M PRN IV DECREASED GLUCOSE Last administered on 03/13/16at 13:36; Admin Dose 25 ML; Start 03/01/16 at 02:00 Dextrose (D50w Syringe) 50 ml Q15M PRN IV DECREASED GLUCOSE Last administered on 03/13/16at 12:30; Admin Dose 50 ML; Start 03/01/16 at 02:00 Glucagon (Glucagen) 1 mg Q15M PRN IM DECREASED GLUCOSE; Start 03/01/16 at 02: 00 Glucose (Glutose) 15 gm Q15M PRN BUCCAL DECREASED GLUCOSE; Start 03/01/16 at 02:00 Diagnostic Test (Pha) (Accucheck) 1 ea 02 XX Last administered on 03/25/16 02: 47; Admin Dose 1 EA; Start 03/02/16 at 02:00 Bisacodyl (Dulcolax Supp) 10 mg DAILY PRN [place] CONSTIPATION Last administered on 03/25/16 14:53; Admin Dose 10 MG; Start 03/03/16 at 11:30 Clotrimazole (Lotrimin Cr) 1 applic BID TOP Last administered on 03/26/16 09:06 ; Admin Dose 1 APPLIC; Start 03/03/16 at 13:30 Ondansetron HCl (Zofran Inj) 4 mg Q4H PRN IV NAUSEA AND/OR VOMITING; Start at 23:30 Gabapentin (Neurontin) 300 mg Q8 GTB Last administered on 03/26/16 14:48; Admin Dose 300 MG; Start 03/13/16 at 06:00 Hydralazine HCl (Apresoline) 10 mg Q6H PRN IV SBP>160 Last administered on 01:28; Admin Dose 10 MG; Start 03/14/16 at 22:00 Insulin Glargine (Lantus) 50 unit QHS SC Last administered on 03/25/16 20:58; Admin Dose 50 UNIT; Start 03/18/16 at 21:00 Insulin Aspart (Novolog Insulin Pen) (Adult SC Insulin - Moder... Q6 SC Last administered on 03/26/16 12:22; Admin Dose 10 UNIT; Start 03/18/16 at 06:30 Docusate Sodium (Colace Liquid Cup) 100 mg BID PEG Last administered on 09:06; Admin Dose 100 MG; Start 03/22/16 at 09:00 Mycophenolate Mofetil (Cellcept) 500 mg BID PEG Last administered on 03/26/16 09:06; Admin Dose 500 MG; Start 03/22/16 at 09:00 Voriconazole (Voriconazole) 200 mg BID GTB Last administered on 03/26/16 09:06 ; Admin Dose 200 MG; Start 03/22/16 at 21:00 Polyethylene Glycol (Miralax) 17 gm TID GTB Last administered on 03/26/16 12:24 ; Admin Dose 17 GM; Start 03/22/16 at 21:00 Losartan Potassium (Cozaar) 25 mg BID PEG Last administered on 03/26/16 09:06; Admin Dose 25 MG; Start 03/23/16 at 21:00 Clonidine (Catapres) 0.1 mg Q8H PRN PEG SBP GREATER THAN 160 Last administered on 03/26/16 00:12; Admin Dose 0.1 MG; Start 03/23/16 at 11:30 Lubiprostone (Amitiza) 24 mcg DAILY PO Last administered on 03/26/16 09:06; Admin Dose 24 MCG; Start 03/24/16 at 13:00 Diltiazem HCl (Cardizem) 60 mg Q6 PEG Last administered on 03/26/16 12:24; Admin Dose 60 MG; Start 03/26/16 at 00:00 Methylprednisolone Sodium Succinate (Solu-Medrol) 15 mg DAILY IV ; Start at 09:00 Fentanyl (Duragesic 25 Mcg/Hr Patch) 1 patch Q72H TRANSDERM ; Start 03/26/16 at 13:00 Lansoprazole (Prevacid) 30 mg BID@,18 GTB ; Start 03/26/16 at 18:00 Simone Carmen DO Mar 26, 2016 15:31
[2016-03-26] MEDS ORDERED: FUROSEMIDE 20 MG INJ IV ONE (16:00)
[2016-03-26] MEDS: LANSOPRAZOLE 30 MG CAP GTB SCH (17:33)
[2016-03-26] MEDS: LATANOPROST 0.005% 2.5 ML OPH BOTH EYES SCH (21:33)
[2016-03-26] MEDS: INSULIN GLARGINE [LANtus] 3 ML PEN SC SCH (21:36)
[2016-03-27] VITALS (10 sets, daily range): BP systolic 115–161; BP diastolic 62–75; PULSE 81–117; RESP 18–90
[2016-03-27] MEDS: VORICONAZOLE GTB SCH ×2 (00:22→21:16)
[2016-03-27] MEDS: DILTIAZEM 60 MG TAB PEG SCH ×5 (00:22→23:47)
[2016-03-27] MEDS: Insulin NOVOLOG SS MODERATE Algorithm(NPO/TPN/ENTERAL FEEDS) SC SCH ×5 (00:25→23:44)
[2016-03-27] MEDS: ALBUTEROL/IPRATROPIUM (NEB) 3 ML AMP HHN SCH ×4 (01:43→20:16)
[2016-03-27] MEDS: ACCUCHECK AT 2AM (Patients on SS coverage) XX SCH (02:00)
[2016-03-27] MEDS: BRIMONIDINE 0.2% 5 ML BTL BOTH EYES SCH ×3 (05:26→21:24)
[2016-03-27] MEDS: GABAPENTIN 300 MG CAP GTB SCH ×3 (05:26→21:38)
[2016-03-27] MEDS: LANSOPRAZOLE 30 MG CAP GTB SCH ×2 (05:42→17:41)
[2016-03-27 07:07] LABS: HEMATOCRIT 31.9 % (37.0-47.0); HEMOGLOBIN 10.4 g/dl (12.0-16.0); MEAN CORPUSCULAR HEMOGLOBIN 27.4 pg (29.0-33.0); MEAN CORPUSCULAR HGB CONC 32.7 g/dl (32.0-37.0); MEAN CORPUSCULAR VOLUME 83.9 fl (82.0-101.0); MEAN PLATELET VOLUME 10.3 fl (7.4-10.4); PLATELET COUNT 132 10^3/UL (140-440); RED CELL DISTRIBUTION WIDTH 17.6 % (11.5-14.5); UNCORRECTED WBC 6.3 10^3/ul (4.8-10.8); WHITE BLOOD COUNT 6.3 10^3/ul (4.8-10.8)
[2016-03-27 07:15] LABS: CONDITION 1; LH ANALYZER COMMENTS 1; SUSPECT 1
[2016-03-27 07:34] LABS: CREATININE 0.93 mg/dl (0.44-1.00)
[2016-03-27 07:35] LABS: CALCIUM 8.4 mg/dl (8.4-10.2)
[2016-03-27] MEDS: FUROSEMIDE 20 MG TAB NGT SCH (08:54)
[2016-03-27] MEDS: LUBIPROSTONE 24 MCG CAP PO SCH (08:54)
[2016-03-27] MEDS: LOSARTAN 25 MG TAB PEG SCH ×2 (08:54→21:16)
[2016-03-27] MEDS: DOCUSATE SODIUM 10 MG/ML (10ML CUP) PEG SCH ×2 (08:55→21:14)
[2016-03-27] MEDS: POLYETHYLENE GLYCOL 17 GM PACKET GTB SCH ×3 (08:55→21:16)
[2016-03-27] MEDS: CLOTRIMAZOLE 1% 30 GM CR TOP SCH ×2 (08:55→21:16)
[2016-03-27] MEDS: MYCOPHENOLATE MOFETIL PEG SCH ×2 (08:55→21:16)
[2016-03-27] MEDS ORDERED: METHYLPREDNISOLONE 40 MG INJ IV SCH (09:00)
[2016-03-27 09:23] LABS: LYMPHOCYTES # 0.3 10^3/ul (0.8-2.9); MONOCYTE # 0.3 10^3/ul (0.3-0.9); NEUTROPHIL # 5.7 10^3/ul (1.6-7.5)
--- NOTE | 2016-03-27 12:22 | PN ---
Date/Time of Note Date/Time of Note DATE: 03/27/16 TIME: 11:57 Assessment/Plan VTE Prophylaxis VTE Prophylaxis Intervention: SCD's Lines/Catheters IV Catheter Type (from Nrsg): PICC Line Central line still needed: Yes (for IV access ) Urinary Cath still in place: No Assessment/Plan Assessment/Plan 85 yo female with: 1. Respiratory distress and insufficiency, much improved now and on [address] head negative, MRI Brain with no acute findings, CT chest stable. WBC down to normal and tapering steroids down and off Meropenem as of 03/25. Still on Aspiration protocol S/p PEG tube placement as she has failed bedside speech swallow before Continue resp care and titration of steroids to OFF in the next 2 days 2. Constipation improved overall, likely secondary to her hyperglycemia and Fentanyl patch use. BM yesterday and today Previous CT abd/pelvis showed no evidence of abdominopelvic mass, lymphadenopathy or focal acute inflammatory pathology. FOB was positive 03/14 but Hb has been stable. PEG tube in place, getting bowel regimen via PEG EGD with no source of bleeding per Dr Zuniga so will eventually need Colonoscopy , could be done as outpatient in 4 to 6 weeks, GI recs pending today. 3. Atrial fibrillation with episodes of RVR, better controlled now and back on Cardizem. Renal function back to normal now Resume Eliquis today if OK with GI and no need to colonoscopy on this admission. Mild pre renal azotemia, monitor and increasing free water further today to 200 cc q6. 4. JUAN with known CKD: Renal function back to baseline and even more improved, monitor volume status, on low dose daily Lasix Increased free water to 200 cc /hr q6 . 5. Anemia, acute, now with stable Hb: s/p 2 units pRBC on 03/16, Hb stable at 10.4 today and has remained stable over past few days, no acute GIB noted and EGD with no source of bleeding, only mild esophagitis reported Platelets better to 130 today. 6. Diabetes Mellitus: On tube feeding, adjust Lantus and SSI accordingly. 7. Hypertension. Continue Cardizem and titrating accordingly, on Losartan 25 mg po bid, hold for SBP<110 and add clonidine prn 8. Pemphigoid disease per family: on Cellcept. 9. Chronic Pain: Back on fentanyl patch, low dose of 25 mcg after discussion with Family, I am very reluctant increasing the dose unless actually signs of uncontrolled pain. 10 Nutrition: tolerating tube feeding but may need to be adjusted by dietary today. Continue free water. 11. UTI: s/p treatment for E coli UTI and on Voriconazole for Cindy Glabrata, will get final recs from ID Tong discontinued yesterday Prophylaxis: If possible to resume Eliquis today, for now SCDs. Protonix for GI prophylaxis Disposition: disabilities caregiver at bedside updated and 2nd FOBT taken today, results pending [facility] discharge pending, family requesting private room at [facility] or [facility] Subjective 24 Hr Interval Summary Free Text/Dictation Patient less restless and more comfortable sleeping and easily arousable Awaiting Private room at [facility] and in the meantime also need final GI recs re outpatient colonoscopy Exam/Review of Systems Vital Signs Vitals Vital Signs Date Time Temp Pulse Resp B/P Pulse Ox O2 Delivery O2 Flow Rate FiO2 03/27/16 08:25 108 03/27/16 08:15 97 3.0 03/27/16 08:13 97.9 90 155/67 03/27/16 08:13 Nasal Cannula 03/26/16 19:58 28 Intake and Output 03/26/16 03/26/16 03/27/16 15:00 23:00 07:00 Intake Total 950 ml 900 ml Output Total 700 ml Balance 250 ml 900 ml Exam Constitutional: other (sleeping but easily arousable ) Respiratory: clear to auscultation, normal air movement Cardiovascular: nl pulses, regular rate and rhythm Gastrointestinal: non-tender, soft Musculoskeletal: nl extremities to inspection Extremities: normal pulses, other (no edema, clubbing or cyanosis ) Neurological: TREE PRUNER II-XII intact, nl mental status, nl speech, other (still with generalised weakness ) Results Result Diagram: 03/27/16 0545 03/27/1645 Results 24 hrs Laboratory Tests Test 03/26/16 12:15 03/26/16 17:36 03/26/16 20:33 03/27/16 00:19 Bedside Glucose 301 H 355 H 280 H 260 H Test 03/27/16 05:24 03/27/16 05:45 Bedside Glucose 328 H Anion Gap 13 Basophils # Basophils % Blood Morphology Comment Blood Urea Nitrogen 54 H Calcium Level 8.4 Carbon Dioxide Level 31 Chloride Level 99 Creatinine 0.93 Differential Comment MANUAL DIFF Eosinophils # Eosinophils % Glucose Level 302 H Hematocrit 31.9 L Hemoglobin 10.4 L Lymphocytes # 0.3 L Lymphocytes % 5.0 L Mean Corpuscular Hemoglobin 27.4 L Mean Corpuscular Hemoglobin Concent 32.7 Mean Corpuscular Volume 83.9 Mean Platelet Volume 10.3 Monocytes # 0.3 Monocytes % 5.0 Neutrophils # 5.7 Neutrophils % 90.0 H Nucleated Red Blood Cells # Nucleated Red Blood Cells % Platelet Count 132 L Potassium Level 5.0 Red Blood Count 3.80 L Red Cell Distribution Width 17.6 H Sodium Level 138 White Blood Count 6.3 Medications Medications Current Medications Brimonidine Tartrate (Alphagan 0.2%) 1 drop Q8 BOTH EYES Last administered on 05:26; Admin Dose 1 DROP; Start 03/01/16 at 06:00 Latanoprost (Xalatan) 1 drop QHS BOTH EYES Last administered on 03/26/16 21:33 ; Admin Dose 1 DROP; Start 03/01/16 at 21:00 Acetaminophen (Tylenol Tab) 650 mg Q4H PRN PO pain/fever Last administered on 03/08/16at 12:49; Admin Dose 650 MG; Start 03/01/16 at 01:00 Morphine Sulfate (morphine) 2 mg Q2H PRN IV pain Last administered on 03/19/16 01:55; Admin Dose 2 MG; Start 03/01/16 at 01:00 Miscellaneous Information 1 ea NOTE XX ; Start 03/01/16 at 02:00 Glucose (Glutose) 15 gm Q15M PRN PO DECREASED GLUCOSE; Start 03/01/16 at 02:00 Glucose (Glutose) 22.5 gm Q15M PRN PO DECREASED GLUCOSE; Start 03/01/16 at 02: 00 Dextrose (D50w Syringe) 25 ml Q15M PRN IV DECREASED GLUCOSE Last administered on 03/13/16at 13:36; Admin Dose 25 ML; Start 03/01/16 at 02:00 Dextrose (D50w Syringe) 50 ml Q15M PRN IV DECREASED GLUCOSE Last administered on 03/13/16at 12:30; Admin Dose 50 ML; Start 03/01/16 at 02:00 Glucagon (Glucagen) 1 mg Q15M PRN IM DECREASED GLUCOSE; Start 03/01/16 at 02: 00 Glucose (Glutose) 15 gm Q15M PRN BUCCAL DECREASED GLUCOSE; Start 03/01/16 at 02:00 Diagnostic Test (Pha) (Accucheck) 1 ea 02 XX Last administered on 03/25/16 02: 47; Admin Dose 1 EA; Start 03/02/16 at 02:00 Bisacodyl (Dulcolax Supp) 10 mg DAILY PRN [place] CONSTIPATION Last administered on 03/25/16 14:53; Admin Dose 10 MG; Start 03/03/16 at 11:30 Clotrimazole (Lotrimin Cr) 1 applic BID TOP Last administered on 03/27/16 08: 55; Admin Dose 1 APPLIC; Start 03/03/16 at 13:30 Ondansetron HCl (Zofran Inj) 4 mg Q4H PRN IV NAUSEA AND/OR VOMITING; Start at 23:30 Gabapentin (Neurontin) 300 mg Q8 GTB Last administered on 03/27/16 05:26; Admin Dose 300 MG; Start 03/13/16 at 06:00 Hydralazine HCl (Apresoline) 10 mg Q6H PRN IV SBP>160 Last administered on 01:28; Admin Dose 10 MG; Start 03/14/16 at 22:00 Insulin Glargine (Lantus) 50 unit QHS SC Last administered on 03/26/16 21:36; Admin Dose 50 UNIT; Start 03/18/16 at 21:00 Insulin Aspart (Novolog Insulin Pen) (Adult SC Insulin - Moder... Q6 SC Last administered on 03/27/16 05:32; Admin Dose 10 UNIT; Start 03/18/16 at 06:30 Docusate Sodium (Colace Liquid Cup) 100 mg BID PEG Last administered on 08:55; Admin Dose 100 MG; Start 03/22/16 at 09:00 Mycophenolate Mofetil (Cellcept) 500 mg BID PEG Last administered on 03/27/16 08:55; Admin Dose 500 MG; Start 03/22/16 at 09:00 Voriconazole (Voriconazole) 200 mg BID GTB Last administered on 03/27/16 00:22 ; Admin Dose 200 MG; Start 03/22/16 at 21:00 Polyethylene Glycol (Miralax) 17 gm TID GTB Last administered on 03/27/16 08: 55; Admin Dose 17 GM; Start 03/22/16 at 21:00 Losartan Potassium (Cozaar) 25 mg BID PEG Last administered on 03/27/16 08:54 ; Admin Dose 25 MG; Start 03/23/16 at 21:00 Clonidine (Catapres) 0.1 mg Q8H PRN PEG SBP GREATER THAN 160 Last administered on 03/26/16 00:12; Admin Dose 0.1 MG; Start 03/23/16 at 11:30 Lubiprostone (Amitiza) 24 mcg DAILY PO Last administered on 03/27/16 08:54; Admin Dose 24 MCG; Start 03/24/16 at 13:00 Diltiazem HCl (Cardizem) 60 mg Q6 PEG Last administered on 03/27/16 05:27; Admin Dose 60 MG; Start 03/26/16 at 00:00 Methylprednisolone Sodium Succinate (Solu-Medrol) 15 mg DAILY IV Last administered on 03/27/16 08:55; Admin Dose 15 MG; Start 03/27/16 at 09:00 Fentanyl (Duragesic 25 Mcg/Hr Patch) 1 patch Q72H TRANSDERM Last administered on 03/26/16 17:33; Admin Dose 1 PATCH; Start 03/26/16 at 13:00 Lansoprazole (Prevacid) 30 mg BID@06,18 GTB Last administered on 03/27/16 05: 42; Admin Dose 30 MG; Start 03/26/16 at 18:00 Furosemide (Lasix) 20 mg DAILY NGT Last administered on 03/27/16 08:54; Admin Dose 20 MG; Start 03/27/16 at 09:00 AISHA TINEO Mar 27, 2016 12:08
--- NOTE | 2016-03-27 13:44 | PN ---
DATE: 03/27/2016 SUBJECTIVE: Chart reviewed. No significant events noted. Currently, patient on 2 liters O2 nasal cannula, saturating 97% and does not appear in acute distress. PHYSICAL EXAMINATION: VITAL SIGNS: Her blood pressure 141/62, pulse 92, respirations 18, temperature 98.4. HEENT: Pupils are equal and reactive to light. Anicteric sclerae. NECK: Supple, no JVD noted. No cervical adenopathy noted. No carotid bruits heard. LUNGS: Fair breath sounds bilaterally. CARDIOVASCULAR: S1, S2 normal, irregular. ABDOMEN: Soft, nontender. EXTREMITIES: No clubbing or cyanosis noted. Trace edema present. NEUROLOGIC: No changes. LABORATORY DATA: WBC 6.3, hemoglobin 10.4, hematocrit 31.9, platelets 132. Sodium 138, potassium 5 .0, chloride 99, CO2 of 31, BUN 54, creatinine 0.93, glucose 302. IMPRESSION: 1. Status post acute hypoxemic respiratory failure. 2. Atrial fibrillation. 3. Diabetes mellitus type 2. 4. Hypertension. 5. Constipation, slowly improving. 6. Left lower lobe pneumonia. RECOMMENDATIONS: 1. Continue current treatment. 2. Cardiology recommendations noted. 3. Oxygen. 4. Bronchodilators. 5. BiPAP p.r.n. 6. Discharge planning for SNF in progress. Dictated By: PARK [place] MD, MA/DARIO Conf#: [id number] DID#: [id number]
--- NOTE | 2016-03-27 14:12 | CONS ---
Date/Time of Note Date/Time of Note DATE: 03/27/16 TIME: 14:11 Consult Date/Type/Reason Admit Date/Time Feb 29, 2016 at 18:54 Initial Consult Date 03/08/16 Type of Consultation: ID Ordering Provider: KANCHAN LEONARD MD Subjective no changes, awake, looks comfortable, no fevers, nad Objective Vital Signs Date Time Temp Pulse Resp B/P Pulse Ox O2 Delivery O2 Flow Rate FiO2 03/27/16 13:49 94 3.0 03/27/16 13:46 84 23 Nasal Cannula 03/27/16 12:08 98.4 141/62 03/26/16 19:58 28 Intake and Output 03/26/16 03/26/16 03/27/16 15:00 23:00 07:00 Intake Total 950 ml 900 ml Output Total 700 ml Balance 250 ml 900 ml Results/Medications Result Diagram: 03/27/16 0545 03/27/16 0545 Results 24 hrs Laboratory Tests Test 03/26/16 17:36 03/26/16 20:33 03/27/16 00:19 03/27/16 05:24 Bedside Glucose 355 H 280 H 260 H 328 H Test 03/27/16 05:45 03/27/16 09:30 03/27/16 12:30 Anion Gap 13 Basophils # Basophils % Blood Morphology Comment Blood Urea Nitrogen 54 H Calcium Level 8.4 Carbon Dioxide Level 31 Chloride Level 99 Creatinine 0.93 Differential Comment MANUAL DIFF Eosinophils # Eosinophils % Glucose Level 302 H Hematocrit 31.9 L Hemoglobin 10.4 L Lymphocytes # 0.3 L Lymphocytes % 5.0 L Mean Corpuscular Hemoglobin 27.4 L Mean Corpuscular Hemoglobin Concent 32.7 Mean Corpuscular Volume 83.9 Mean Platelet Volume 10.3 Monocytes # 0.3 Monocytes % 5.0 Neutrophils # 5.7 Neutrophils % 90.0 H Nucleated Red Blood Cells # Nucleated Red Blood Cells % Platelet Count 132 L Potassium Level 5.0 Red Blood Count 3.80 L Red Cell Distribution Width 17.6 H Sodium Level 138 White Blood Count 6.3 Stool Occult Blood POSITIVE Bedside Glucose 353 H Medications Current Medications Brimonidine Tartrate (Alphagan 0.2%) 1 drop Q8 BOTH EYES Last administered on t 13:30; Admin Dose 1 DROP; Start 03/01/16 at 06:00 Latanoprost (Xalatan) 1 drop QHS BOTH EYES Last administered on 03/26/16 21:33 ; Admin Dose 1 DROP; Start 03/01/16 at 21:00 Acetaminophen (Tylenol Tab) 650 mg Q4H PRN PO pain/fever Last administered on 03/08/16at 12:49; Admin Dose 650 MG; Start 03/01/16 at 01:00 Morphine Sulfate (morphine) 2 mg Q2H PRN IV pain Last administered on 03/19/16 01:55; Admin Dose 2 MG; Start 03/01/16 at 01:00 Miscellaneous Information 1 ea NOTE XX ; Start 03/01/16 at 02:00 Glucose (Glutose) 15 gm Q15M PRN PO DECREASED GLUCOSE; Start 03/01/16 at 02:00 Glucose (Glutose) 22.5 gm Q15M PRN PO DECREASED GLUCOSE; Start 03/01/16 at 02: 00 Dextrose (D50w Syringe) 25 ml Q15M PRN IV DECREASED GLUCOSE Last administered on 03/13/16at 13:36; Admin Dose 25 ML; Start 03/01/16 at 02:00 Dextrose (D50w Syringe) 50 ml Q15M PRN IV DECREASED GLUCOSE Last administered on 03/13/16at 12:30; Admin Dose 50 ML; Start 03/01/16 at 02:00 Glucagon (Glucagen) 1 mg Q15M PRN IM DECREASED GLUCOSE; Start 03/01/16 at 02: 00 Glucose (Glutose) 15 gm Q15M PRN BUCCAL DECREASED GLUCOSE; Start 03/01/16 at 02:00 Diagnostic Test (Pha) (Accucheck) 1 ea 02 XX Last administered on 03/25/16 02: 47; Admin Dose 1 EA; Start 03/02/16 at 02:00 Bisacodyl (Dulcolax Supp) 10 mg DAILY PRN [place] CONSTIPATION Last administered on 03/25/16 14:53; Admin Dose 10 MG; Start 03/03/16 at 11:30 Clotrimazole (Lotrimin Cr) 1 applic BID TOP Last administered on 03/27/16 08: 55; Admin Dose 1 APPLIC; Start 03/03/16 at 13:30 Ondansetron HCl (Zofran Inj) 4 mg Q4H PRN IV NAUSEA AND/OR VOMITING; Start at 23:30 Gabapentin (Neurontin) 300 mg Q8 GTB Last administered on 03/27/16 13:30; Admin Dose 300 MG; Start 03/13/16 at 06:00 Hydralazine HCl (Apresoline) 10 mg Q6H PRN IV SBP>160 Last administered on 01:28; Admin Dose 10 MG; Start 03/14/16 at 22:00 Insulin Aspart (Novolog Insulin Pen) (Adult SC Insulin - Moder... Q6 SC Last administered on 03/27/16 12:45; Admin Dose 10 UNIT; Start 03/18/16 at 06:30 Docusate Sodium (Colace Liquid Cup) 100 mg BID PEG Last administered on 08:55; Admin Dose 100 MG; Start 03/22/16 at 09:00 Mycophenolate Mofetil (Cellcept) 500 mg BID PEG Last administered on 03/27/16 08:55; Admin Dose 500 MG; Start 03/22/16 at 09:00 Voriconazole (Voriconazole) 200 mg BID GTB Last administered on 03/27/16 00:22 ; Admin Dose 200 MG; Start 03/22/16 at 21:00 Polyethylene Glycol (Miralax) 17 gm TID GTB Last administered on 03/27/16 12: 32; Admin Dose 17 GM; Start 03/22/16 at 21:00 Losartan Potassium (Cozaar) 25 mg BID PEG Last administered on 03/27/16 08:54 ; Admin Dose 25 MG; Start 03/23/16 at 21:00 Clonidine (Catapres) 0.1 mg Q8H PRN PEG SBP GREATER THAN 160 Last administered on 03/26/16 00:12; Admin Dose 0.1 MG; Start 03/23/16 at 11:30 Lubiprostone (Amitiza) 24 mcg DAILY PO Last administered on 03/27/16 08:54; Admin Dose 24 MCG; Start 03/24/16 at 13:00 Diltiazem HCl (Cardizem) 60 mg Q6 PEG Last administered on 03/27/16 12:32; Admin Dose 60 MG; Start 03/26/16 at 00:00 Fentanyl (Duragesic 25 Mcg/Hr Patch) 1 patch Q72H TRANSDERM Last administered on 03/26/16 17:33; Admin Dose 1 PATCH; Start 03/26/16 at 13:00 Lansoprazole (Prevacid) 30 mg BID@06,18 GTB Last administered on 03/27/16 05: 42; Admin Dose 30 MG; Start 03/26/16 at 18:00 Furosemide (Lasix) 20 mg DAILY NGT Last administered on 03/27/16 08:54; Admin Dose 20 MG; Start 03/27/16 at 09:00 Prednisone (Prednisone) 10 mg DAILY PO ; Start 03/28/16 at 09:00 Insulin Glargine (Lantus) 60 unit QHS SC ; Start 03/27/16 at 21:00 Assessment/Plan Chief Complaint/Hosp Course MICROBIOLOGY: Urine culture repeated on 03/19/2016 growing Cindy glabrata. INDWELLINGS: PICC line, Tong, PEG. ANTIMICROBIALS: 1. Vfend PHYSICAL EXAMINATION: GENERAL: This is an obese, chronically ill-appearing, elderly woman who is awake, in no distress. HEENT: Head atraumatic, normocephalic. Sclerae anicteric. Buccal mucosa dry. NECK: Obese. CHEST: Rise symmetrical. Breath sounds CTA, diminished to bases, scattered crackles upper lobes. HEART: S1, S2. ABDOMEN: Distended, soft, bowel tones present. EXTREMITIES: Without cyanosis. ASSESSMENT: 1. S/p sepsis 2. S/p acute respiratory failure secondary to secretion retention, possibly ongoing aspiration, sputum culture grew Escherichia coli. 3. S/p Urinary tract infection. 4. Dysphagia, status post percutaneous endoscopic gastrostomy. 5. Acute renal failure, improved. 6. Thrombocytopenia, possibly secondary to vancomycin. 7. Paroxysmal atrial fibrillation. 8. Status post fecal impaction with chronic constipation. 9. 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 PLAN: Remains stable, no fevers, dc Vfend in am, continue aspiration precautions. PRISCA staff/physician compensation analyst at bedside PRISCA [place] Problems: LEÓN PAK NP Mar 27, 2016 14:12
--- NOTE | 2016-03-27 15:16 | CONS ---
Date/Time of Note Date/Time of Note DATE: 03/27/16 TIME: 15:14 Assessment/Plan Assessment/Plan Additional Assessment/Plan 1.Anemia, improving - transfuse PRN hgb < 8 -Complete colonoscopy as outpatient 2. Tachycardia with atrial fibrillation. - cardiac stabilization, will be started on Eliquis 3. Constipation: resolving 4. Acute Respiratory failure, secondary to bronchitis/URI/pneumonia. Reported history of asthma. Immunosuppressed with CellCept chronically - management per primary and other consultants 5. Poor nutrition/protein calorie malnutrition - Status post EGD + PEG -Monitor tube feed every 6 hours, hold for residual >150 mL Further recommendations depend on clinical course Patient seen in collaboration with Dr. Zuniga Consultation Date/Type/Reason Admit Date/Time Feb 29, 2016 at 18:54 Initial Consult Date 03/08/16 Type of Consultation: ID Referring Provider: KANCHAN LEONARD MD 24 HR Interval Summary Free Text/Dictation G-tube with minimal residual Stool OB positive; however, recommend outpatient colonoscopy Patient to start anticoagulant with close monitoring of hemoglobin Called patient's son and same advised Exam/Review of Systems Vital Signs Vitals Vital Signs Date Time Temp Pulse Resp B/P Pulse Ox O2 Delivery O2 Flow Rate FiO2 03/27/16 13:49 94 3.0 03/27/16 13:46 84 23 Nasal Cannula 03/27/16 12:08 98.4 141/62 03/26/16 19:58 28 Intake and Output 03/26/16 03/26/16 03/27/16 15:00 23:00 07:00 Intake Total 950 ml 900 ml Output Total 700 ml Balance 250 ml 900 ml Exam Psych: Alert, less confused Head: atraumatic, normocephalic Eyes: nl conjunctiva, nl lids, nl sclera ENMT: mucosa pink and moist, nl external ears & nose, nl lips & teeth, nl nasal mucosa & septum Neck: non-tender, supple Respiratory: clear to auscultation, normal air movement Cardiovascular: nl pulses, regular rate and rhythm Gastrointestinal: bowel sounds, non-tender, soft Results Result Diagram: 03/27/16 0545 03/27/16 0545 Results 24 hrs Laboratory Tests Test 03/26/16 17:36 03/26/16 20:33 03/27/16 00:19 03/27/16 05:24 Bedside Glucose 355 H 280 H 260 H 328 H Test 03/27/16 05:45 03/27/16 09:30 03/27/16 12:30 Anion Gap 13 Basophils # Basophils % Blood Morphology Comment Blood Urea Nitrogen 54 H Calcium Level 8.4 Carbon Dioxide Level 31 Chloride Level 99 Creatinine 0.93 Differential Comment MANUAL DIFF Eosinophils # Eosinophils % Glucose Level 302 H Hematocrit 31.9 L Hemoglobin 10.4 L Lymphocytes # 0.3 L Lymphocytes % 5.0 L Mean Corpuscular Hemoglobin 27.4 L Mean Corpuscular Hemoglobin Concent 32.7 Mean Corpuscular Volume 83.9 Mean Platelet Volume 10.3 Monocytes # 0.3 Monocytes % 5.0 Neutrophils # 5.7 Neutrophils % 90.0 H Nucleated Red Blood Cells # Nucleated Red Blood Cells % Platelet Count 132 L Potassium Level 5.0 Red Blood Count 3.80 L Red Cell Distribution Width 17.6 H Sodium Level 138 White Blood Count 6.3 Stool Occult Blood POSITIVE Bedside Glucose 353 H Medications Medications Current Medications Brimonidine Tartrate (Alphagan 0.2%) 1 drop Q8 BOTH EYES Last administered on 13:30; Admin Dose 1 DROP; Start 03/01/16 at 06:00 Latanoprost (Xalatan) 1 drop QHS BOTH EYES Last administered on 03/26/16 21:33 ; Admin Dose 1 DROP; Start 03/01/16 at 21:00 Acetaminophen (Tylenol Tab) 650 mg Q4H PRN PO pain/fever Last administered on 03/08/16at 12:49; Admin Dose 650 MG; Start 03/01/16 at 01:00 Morphine Sulfate (morphine) 2 mg Q2H PRN IV pain Last administered on 03/19/16 01:55; Admin Dose 2 MG; Start 03/01/16 at 01:00 Miscellaneous Information 1 ea NOTE XX ; Start 03/01/16 at 02:00 Glucose (Glutose) 15 gm Q15M PRN PO DECREASED GLUCOSE; Start 03/01/16 at 02:00 Glucose (Glutose) 22.5 gm Q15M PRN PO DECREASED GLUCOSE; Start 03/01/16 at 02: 00 Dextrose (D50w Syringe) 25 ml Q15M PRN IV DECREASED GLUCOSE Last administered on 03/13/16at 13:36; Admin Dose 25 ML; Start 03/01/16 at 02:00 Dextrose (D50w Syringe) 50 ml Q15M PRN IV DECREASED GLUCOSE Last administered on 03/13/16at 12:30; Admin Dose 50 ML; Start 03/01/16 at 02:00 Glucagon (Glucagen) 1 mg Q15M PRN IM DECREASED GLUCOSE; Start 03/01/16 at 02: 00 Glucose (Glutose) 15 gm Q15M PRN BUCCAL DECREASED GLUCOSE; Start 03/01/16 at 02:00 Diagnostic Test (Pha) (Accucheck) 1 ea 02 XX Last administered on 03/25/16 02: 47; Admin Dose 1 EA; Start 03/02/16 at 02:00 Bisacodyl (Dulcolax Supp) 10 mg DAILY PRN [place] CONSTIPATION Last administered on 03/25/16 14:53; Admin Dose 10 MG; Start 03/03/16 at 11:30 Clotrimazole (Lotrimin Cr) 1 applic BID TOP Last administered on 03/27/16 08: 55; Admin Dose 1 APPLIC; Start 03/03/16 at 13:30 Ondansetron HCl (Zofran Inj) 4 mg Q4H PRN IV NAUSEA AND/OR VOMITING; Start at 23:30 Gabapentin (Neurontin) 300 mg Q8 GTB Last administered on 03/27/16 13:30; Admin Dose 300 MG; Start 03/13/16 at 06:00 Hydralazine HCl (Apresoline) 10 mg Q6H PRN IV SBP>160 Last administered on 01:28; Admin Dose 10 MG; Start 03/14/16 at 22:00 Insulin Aspart (Novolog Insulin Pen) (Adult SC Insulin - Moder... Q6 SC Last administered on 03/27/16 12:45; Admin Dose 10 UNIT; Start 03/18/16 at 06:30 Docusate Sodium (Colace Liquid Cup) 100 mg BID PEG Last administered on 08:55; Admin Dose 100 MG; Start 03/22/16 at 09:00 Mycophenolate Mofetil (Cellcept) 500 mg BID PEG Last administered on 03/27/16 08:55; Admin Dose 500 MG; Start 03/22/16 at 09:00 Voriconazole (Voriconazole) 200 mg BID GTB Last administered on 03/27/16 00:22 ; Admin Dose 200 MG; Start 03/22/16 at 21:00; Stop 03/28/16 at 06:00 Polyethylene Glycol (Miralax) 17 gm TID GTB Last administered on 03/27/16 12: 32; Admin Dose 17 GM; Start 03/22/16 at 21:00 Losartan Potassium (Cozaar) 25 mg BID PEG Last administered on 03/27/16 08:54 ; Admin Dose 25 MG; Start 03/23/16 at 21:00 Clonidine (Catapres) 0.1 mg Q8H PRN PEG SBP GREATER THAN 160 Last administered on 03/26/16 00:12; Admin Dose 0.1 MG; Start 03/23/16 at 11:30 Lubiprostone (Amitiza) 24 mcg DAILY PO Last administered on 03/27/16 08:54; Admin Dose 24 MCG; Start 03/24/16 at 13:00 Diltiazem HCl (Cardizem) 60 mg Q6 PEG Last administered on 03/27/16 12:32; Admin Dose 60 MG; Start 03/26/16 at 00:00 Fentanyl (Duragesic 25 Mcg/Hr Patch) 1 patch Q72H TRANSDERM Last administered on 03/26/16 17:33; Admin Dose 1 PATCH; Start 03/26/16 at 13:00 Lansoprazole (Prevacid) 30 mg BID@06,18 GTB Last administered on 03/27/16 05: 42; Admin Dose 30 MG; Start 03/26/16 at 18:00 Furosemide (Lasix) 20 mg DAILY NGT Last administered on 03/27/16 08:54; Admin Dose 20 MG; Start 03/27/16 at 09:00 Prednisone (Prednisone) 10 mg DAILY PO ; Start 03/28/16 at 09:00 Insulin Glargine (Lantus) 60 unit QHS SC ; Start 03/27/16 at 21:00 TR AMES Mar 27, 2016 15:16
[2016-03-27] MEDS: ACETAMINOPHEN 325 MG TAB PO PRN (17:41)
[2016-03-27] MEDS ORDERED: INSULIN GLARGINE [LANtus] 3 ML PEN SC SCH (21:00)
[2016-03-27] MEDS: APIXABAN 5 MG TABLET PO SCH (21:15)
[2016-03-27] MEDS: LATANOPROST 0.005% 2.5 ML OPH BOTH EYES SCH (21:24)
--- NOTE | 2016-03-27 21:41 | CONS ---
Date/Time of Note Date/Time of Note DATE: 03/27/16 TIME: 21:39 Assessment/Plan Assessment/Plan Additional Assessment/Plan Atrial fibrillation Respiratory failure Preserved ejection fraction Possible aspiration pneumonia Hypertension Anemia -Heart rate well-controlled on current dose of Cardizem, anticoagulation restarted. Continue maintenance diuretics as renal function and blood pressure permits Consultation Date/Type/Reason Admit Date/Time Feb 29, 2016 at 18:54 Initial Consult Date 03/17/16 Type of Consultation: cv Referring Provider: KANCHAN LEONARD MD 24 HR Interval Summary Free Text/Dictation Patient seen and examined, son and insulator cutter and former at bedside, mental status slowly improving Exam/Review of Systems Vital Signs Vitals Vital Signs Date Time Temp Pulse Resp B/P Pulse Ox O2 Delivery O2 Flow Rate FiO2 03/27/16 20:17 83 22 99 Nasal Cannula 3.0 03/27/16 20:16 97.6 115/62 03/26/16 19:58 28 Intake and Output 03/26/16 03/26/16 03/27/16 15:00 23:00 07:00 Intake Total 950 ml 900 ml Output Total 700 ml Balance 250 ml 900 ml Exam Follows some commands, no apparent distress Constitutional: alert Head: normocephalic Respiratory: other (course breath sounds bilaterally, no wheezing) Cardiovascular: irregular rhythm, other (S1 and S2 heard) Gastrointestinal: bowel sounds, non-tender, soft Extremities: edema Results Result Diagram: 03/27/16 0545 03/27/16 0545 Results 24 hrs Laboratory Tests Test 03/27/16 00:19 03/27/16 05:24 03/27/16 05:45 03/27/16 09:30 Bedside Glucose 260 H 328 H Anion Gap 13 Basophils # Basophils % Blood Morphology Comment Blood Urea Nitrogen 54 H Calcium Level 8.4 Carbon Dioxide Level 31 Chloride Level 99 Creatinine 0.93 Differential Comment MANUAL DIFF Eosinophils # Eosinophils % Glucose Level 302 H Hematocrit 31.9 L Hemoglobin 10.4 L Lymphocytes # 0.3 L Lymphocytes % 5.0 L Mean Corpuscular Hemoglobin 27.4 L Mean Corpuscular Hemoglobin Concent 32.7 Mean Corpuscular Volume 83.9 Mean Platelet Volume 10.3 Monocytes # 0.3 Monocytes % 5.0 Neutrophils # 5.7 Neutrophils % 90.0 H Nucleated Red Blood Cells # Nucleated Red Blood Cells % Platelet Count 132 L Potassium Level 5.0 Red Blood Count 3.80 L Red Cell Distribution Width 17.6 H Sodium Level 138 White Blood Count 6.3 Stool Occult Blood POSITIVE Test 03/27/16 12:30 03/27/16 17:39 03/27/16 17:41 03/27/16 21:23 Bedside Glucose 353 H 388 H 346 H 344 H Medications Medications Current Medications Brimonidine Tartrate (Alphagan 0.2%) 1 drop Q8 BOTH EYES Last administered on 21:24; Admin Dose 1 DROP; Start 03/01/16 at 06:00 Latanoprost (Xalatan) 1 drop QHS BOTH EYES Last administered on 03/27/16 21:24 ; Admin Dose 1 DROP; Start 03/01/16 at 21:00 Acetaminophen (Tylenol Tab) 650 mg Q4H PRN PO pain/fever Last administered on 17:41; Admin Dose 650 MG; Start 03/01/16 at 01:00 Morphine Sulfate (morphine) 2 mg Q2H PRN IV pain Last administered on 03/19/16 01:55; Admin Dose 2 MG; Start 03/01/16 at 01:00 Miscellaneous Information 1 ea NOTE XX ; Start 03/01/16 at 02:00 Glucose (Glutose) 15 gm Q15M PRN PO DECREASED GLUCOSE; Start 03/01/16 at 02:00 Glucose (Glutose) 22.5 gm Q15M PRN PO DECREASED GLUCOSE; Start 03/01/16 at 02: 00 Dextrose (D50w Syringe) 25 ml Q15M PRN IV DECREASED GLUCOSE Last administered on 03/13/16at 13:36; Admin Dose 25 ML; Start 03/01/16 at 02:00 Dextrose (D50w Syringe) 50 ml Q15M PRN IV DECREASED GLUCOSE Last administered on 03/13/16at 12:30; Admin Dose 50 ML; Start 03/01/16 at 02:00 Glucagon (Glucagen) 1 mg Q15M PRN IM DECREASED GLUCOSE; Start 03/01/16 at 02: 00 Glucose (Glutose) 15 gm Q15M PRN BUCCAL DECREASED GLUCOSE; Start 03/01/16 at 02:00 Diagnostic Test (Pha) (Accucheck) 1 ea 02 XX Last administered on 03/25/16 02: 47; Admin Dose 1 EA; Start 03/02/16 at 02:00 Bisacodyl (Dulcolax Supp) 10 mg DAILY PRN [place] CONSTIPATION Last administered on 03/25/16 14:53; Admin Dose 10 MG; Start 03/03/16 at 11:30 Clotrimazole (Lotrimin Cr) 1 applic BID TOP Last administered on 03/27/16 21: 16; Admin Dose 1 APPLIC; Start 03/03/16 at 13:30 Ondansetron HCl (Zofran Inj) 4 mg Q4H PRN IV NAUSEA AND/OR VOMITING; Start at 23:30 Gabapentin (Neurontin) 300 mg Q8 GTB Last administered on 03/27/16 13:30; Admin Dose 300 MG; Start 03/13/16 at 06:00 Hydralazine HCl (Apresoline) 10 mg Q6H PRN IV SBP>160 Last administered on 01:28; Admin Dose 10 MG; Start 03/14/16 at 22:00 Insulin Aspart (Novolog Insulin Pen) (Adult SC Insulin - Moder... Q6 SC Last administered on 03/27/16 17:44; Admin Dose 10 UNIT; Start 03/18/16 at 06:30 Docusate Sodium (Colace Liquid Cup) 100 mg BID PEG Last administered on 21:14; Admin Dose 100 MG; Start 03/22/16 at 09:00 Mycophenolate Mofetil (Cellcept) 500 mg BID PEG Last administered on 03/27/16 21:16; Admin Dose 500 MG; Start 03/22/16 at 09:00 Voriconazole (Voriconazole) 200 mg BID GTB Last administered on 03/27/16 21:16 ; Admin Dose 200 MG; Start 03/22/16 at 21:00; Stop 03/28/16 at 06:00 Polyethylene Glycol (Miralax) 17 gm TID GTB Last administered on 03/27/16 21: 16; Admin Dose 17 GM; Start 03/22/16 at 21:00 Losartan Potassium (Cozaar) 25 mg BID PEG Last administered on 03/27/16 21:16 ; Admin Dose 25 MG; Start 03/23/16 at 21:00 Clonidine (Catapres) 0.1 mg Q8H PRN PEG SBP GREATER THAN 160 Last administered on 03/26/16 00:12; Admin Dose 0.1 MG; Start 03/23/16 at 11:30 Lubiprostone (Amitiza) 24 mcg DAILY PO Last administered on 03/27/16 08:54; Admin Dose 24 MCG; Start 03/24/16 at 13:00 Diltiazem HCl (Cardizem) 60 mg Q6 PEG Last administered on 03/27/16 17:42; Admin Dose 60 MG; Start 03/26/16 at 00:00 Fentanyl (Duragesic 25 Mcg/Hr Patch) 1 patch Q72H TRANSDERM Last administered on 03/26/16 17:33; Admin Dose 1 PATCH; Start 03/26/16 at 13:00 Lansoprazole (Prevacid) 30 mg BID@06,18 GTB Last administered on 03/27/16 17: 41; Admin Dose 30 MG; Start 03/26/16 at 18:00 Furosemide (Lasix) 20 mg DAILY NGT Last administered on 03/27/16 08:54; Admin Dose 20 MG; Start 03/27/16 at 09:00 Prednisone (Prednisone) 10 mg DAILY PO ; Start 03/28/16 at 09:00 Insulin Glargine (Lantus) 60 unit QHS SC ; Start 03/27/16 at 21:00 Apixaban (Eliquis) 5 mg BID PO Last administered on 03/27/16 21:15; Admin Dose 5 MG; Start 03/27/16 at 21:00 Simone Carmen DO Mar 27, 2016 21:40
[2016-03-28] VITALS (8 sets, daily range): BP systolic 130–163; BP diastolic 61–92; PULSE 82–102; RESP 18–22
[2016-03-28] MEDS: ALBUTEROL/IPRATROPIUM (NEB) 3 ML AMP HHN SCH ×3 (01:44→14:52)
[2016-03-28] MEDS: ACCUCHECK AT 2AM (Patients on SS coverage) XX SCH (02:00)
[2016-03-28] MEDS: LANSOPRAZOLE 30 MG CAP GTB SCH (05:55)
[2016-03-28] MEDS: GABAPENTIN 300 MG CAP GTB SCH ×2 (05:55→13:11)
[2016-03-28] MEDS: DILTIAZEM 60 MG TAB PEG SCH ×2 (05:56→13:11)
[2016-03-28] MEDS: BRIMONIDINE 0.2% 5 ML BTL BOTH EYES SCH ×2 (06:01→13:12)
[2016-03-28] MEDS: Insulin NOVOLOG SS MODERATE Algorithm(NPO/TPN/ENTERAL FEEDS) SC SCH ×2 (06:05→13:21)
[2016-03-28 07:20] LABS: HEMATOCRIT 31.2 % (37.0-47.0); HEMOGLOBIN 10.4 g/dl (12.0-16.0); LYMPHOCYTES # 0.4 10^3/ul (0.8-2.9); LYMPHOCYTES % 6.8 % (15.0-51.0); MEAN CORPUSCULAR HEMOGLOBIN 27.9 pg (29.0-33.0); MEAN CORPUSCULAR HGB CONC 33.5 g/dl (32.0-37.0); MEAN CORPUSCULAR VOLUME 83.4 fl (82.0-101.0); MEAN PLATELET VOLUME 9.2 fl (7.4-10.4); MONOCYTE # 0.4 10^3/ul (0.3-0.9); MONOCYTES % 6.8 % (0.0-11.0); NEUTROPHIL # 5.7 10^3/ul (1.6-7.5); NEUTROPHILS % 86.4 % (39.0-77.0); PLATELET COUNT 148 10^3/UL (140-440); RED BLOOD COUNT 3.74 10^6/ul (4.20-5.40); RED CELL DISTRIBUTION WIDTH 17.2 % (11.5-14.5); UNCORRECTED WBC 6.6 10^3/ul (4.8-10.8); WHITE BLOOD COUNT 6.6 10^3/ul (4.8-10.8)
[2016-03-28 07:28] LABS: CONDITION 1; LH ANALYZER COMMENTS 1
[2016-03-28 07:45] LABS: POTASSIUM 4.9 mmol/L (3.5-5.1)
[2016-03-28 07:48] LABS: CREATININE 0.93 mg/dl (0.44-1.00)
[2016-03-28 07:49] LABS: CALCIUM 8.6 mg/dl (8.4-10.2)
[2016-03-28] MEDS: DOCUSATE SODIUM 10 MG/ML (10ML CUP) PEG SCH (08:33)
[2016-03-28] MEDS: POLYETHYLENE GLYCOL 17 GM PACKET GTB SCH ×2 (08:33→13:10)
[2016-03-28] MEDS: MYCOPHENOLATE MOFETIL PEG SCH (08:33)
[2016-03-28] MEDS: LUBIPROSTONE 24 MCG CAP PO SCH (08:34)
[2016-03-28] MEDS: LOSARTAN 25 MG TAB PEG SCH (08:34)
[2016-03-28] MEDS: APIXABAN 5 MG TABLET PO SCH (08:34)
[2016-03-28] MEDS: FUROSEMIDE 20 MG TAB NGT SCH (08:35)
[2016-03-28] MEDS: CLOTRIMAZOLE 1% 30 GM CR TOP SCH (08:35)
--- NOTE | 2016-03-28 08:45 | PDOCDIS ---
Discharge Instructions CONDITION Patient Condition: Stable HOME CARE INSTRUCTIONS: Special Diet: gtfeeding ACTIVITY: Activity Restrictions: Slowly Increase Activity FOLLOW UP/APPOINTMENTS Appointments Follow up with GI in 4 to 6 weeks for outpatient colonoscopy Follow up with Cardiology outpatient as needed Continue speech therapy AISHA TINEO Mar 28, 2016 08:45
[2016-03-28] MEDS ORDERED: predniSONE 10 MG TAB PO SCH (09:00)
[2016-03-28 10:31] LABS: ANISOCYTOSIS 1+
[2016-03-28 10:32] LABS: HYPOCHROMASIA 1+
--- NOTE | 2016-03-28 13:23 | PN ---
Date/Time of Note Date/Time of Note DATE: 03/28/16 TIME: 12:41 Assessment/Plan VTE Prophylaxis VTE Prophylaxis Intervention: other (Eliquis ) Lines/Catheters IV [facility]ter Type (from [facility] PICC Line Central line still needed: Yes (valerio be discontinued at d/c today ) Urinary Cath still in place: No Assessment/Plan Assessment/Plan 85 yo female with: 1. Respiratory distress and insufficiency, much improved now and on [address] head negative, MRI Brain with no acute findings, CT chest stable. WBC down to normal for a few days and tapering steroids down, off Meropenem as of 03/25 and off Voriconazole as of 03/27. Still on Aspiration protocol S/p PEG tube placement as she has failed bedside speech swallow before Continue resp care and titration of steroids to OFF in the next few days. 2. Constipation improved overall, likely secondary to her hyperglycemia and Fentanyl patch use. BM yesterday and today Previous CT abd/pelvis showed no evidence of abdominopelvic mass, lymphadenopathy or focal acute inflammatory pathology. FOB was positive 03/14 but Hb has been stable. PEG tube in place, getting bowel regimen via PEG EGD with no source of bleeding per Dr Zuniga so will eventually need Colonoscopy , could be done as outpatient in 4 to 6 weeks per GI and Ok to resume Eliquis. 3. Atrial fibrillation with episodes of RVR, better controlled now and back on Cardizem. Renal function back to normal now Back on Eliquis as of last night and monitor h/h as outpatient. Mild pre renal azotemia resolved and on free water but also low dose Lasix 4. JUAN with known CKD: Renal function back to baseline and even more improved, monitor volume status, on low dose daily Lasix On free water. 5. Anemia, acute, now with stable Hb: s/p 2 units pRBC on 03/16, Hb stable at 10.4 today and has remained stable over past few days, no acute GIB noted and EGD with no source of bleeding, only mild esophagitis reported Platelets better to 140's and no acute bleeding 6. Diabetes Mellitus: On tube feeding, adjust Lantus and SSI accordingly. 7. Hypertension. Continue Cardizem and titrating accordingly, on Losartan 25 mg po bid, hold for SBP<110 and add clonidine prn 8. Pemphigoid disease per family: on Cellcept. 9. Chronic Pain: Back on fentanyl patch, low dose of 25 mcg after discussion with Family, I am very reluctant increasing the dose unless actually signs of uncontrolled pain. 10 Nutrition: tolerating tube feeding but may need to be adjusted by dietary today. Continue free water. 11. UTI: s/p treatment for E coli UTI and just finished treatment for Cindy Glabrata UTI. Tong discontinued yesterday Prophylaxis: Back on Eliquis as of last night. Prevacid for GI prophylaxis Disposition: certified caregiver at bedside updated, awaiting SNF transfer to private room at [facility] and they are also requesting for Dr Resendiz to be primary there. Subjective 24 Hr Interval Summary Free Text/Dictation Patient doing OK Remains stable Labs reviewed this AM and stable D/c to SNF today since bed available and patient has been stable at least for the past 48 to 72 hrs Exam/Review of Systems Vital Signs Vitals Vital Signs Date Time Temp Pulse Resp B/P Pulse Ox O2 Delivery O2 Flow Rate FiO2 03/28/16 12:28 102 03/28/16 11:37 98.3 22 158/75 97 03/28/16 08:00 Nasal Cannula 2.0 03/28/16 07:59 32 Intake and Output 03/27/16 03/27/16 03/28/16 15:00 23:00 07:00 Intake Total 900 ml 650 ml Balance 900 ml 650 ml Exam Constitutional: alert, frail, obese, oriented Respiratory: diminished breath sounds (at bases bilaterally ), normal air movement Cardiovascular: irregular rhythm (a fib ) Gastrointestinal: non-tender, soft Extremities: normal pulses, other (trace to +1 edema ) Neurological: DEALER ACCOUNTS INVESTIGATOR II-XII intact, nl mental status (at baseline ), other ( generalised weakness ) Results Result Diagram: 03/28/16 0650 03/28/16 0650 Results 24 hrs Laboratory Tests Test 03/27/16 17:39 03/27/16 17:41 03/27/16 21:23 03/27/16 23:38 Bedside Glucose 388 H 346 H 344 H 318 H Test 03/28/16 05:59 03/28/16 06:50 03/28/16 12:31 Bedside Glucose 219 142 Anion Gap 10 Anisocytosis 1+ Basophils # 0.0 Basophils % 0.0 Blood Morphology Comment Blood Urea Nitrogen 56 H Calcium Level 8.6 Carbon Dioxide Level 34 H Chloride Level 97 Creatinine 0.93 Differential Comment AUTO w/SCAN Eosinophils # 0.0 Eosinophils % 0.0 Glucose Level 190 # Hematocrit 31.2 L Hemoglobin 10.4 L Hypochromasia 1+ Lymphocytes # 0.4 L Lymphocytes % 6.8 L Mean Corpuscular Hemoglobin 27.9 L Mean Corpuscular Hemoglobin Concent 33.5 Mean Corpuscular Volume 83.4 Mean Platelet Volume 9.2 Monocytes # 0.4 Monocytes % 6.8 Neutrophils # 5.7 Neutrophils % 86.4 H Nucleated Red Blood Cells # 0.0 Nucleated Red Blood Cells % 0.0 Platelet Count 148 Potassium Level 4.9 Red Blood Count 3.74 L Red Cell Distribution Width 17.2 H Sodium Level 136 White Blood Count 6.6 Medications Medications Current Medications Brimonidine Tartrate (Alphagan 0.2%) 1 drop Q8 BOTH EYES Last administered on 06:01; Admin Dose 1 DROP; Start 03/01/16 at 06:00 Latanoprost (Xalatan) 1 drop QHS BOTH EYES Last administered on 03/27/16 21:24 ; Admin Dose 1 DROP; Start 03/01/16 at 21:00 Acetaminophen (Tylenol Tab) 650 mg Q4H PRN PO pain/fever Last administered on 17:41; Admin Dose 650 MG; Start 03/01/16 at 01:00 Morphine Sulfate (morphine) 2 mg Q2H PRN IV pain Last administered on 03/19/16 01:55; Admin Dose 2 MG; Start 03/01/16 at 01:00 Miscellaneous Information 1 ea NOTE XX ; Start 03/01/16 at 02:00 Glucose (Glutose) 15 gm Q15M PRN PO DECREASED GLUCOSE; Start 03/01/16 at 02:00 Glucose (Glutose) 22.5 gm Q15M PRN PO DECREASED GLUCOSE; Start 03/01/16 at 02: 00 Dextrose (D50w Syringe) 25 ml Q15M PRN IV DECREASED GLUCOSE Last administered on 03/13/16at 13:36; Admin Dose 25 ML; Start 03/01/16 at 02:00 Dextrose (D50w Syringe) 50 ml Q15M PRN IV DECREASED GLUCOSE Last administered on 03/13/16at 12:30; Admin Dose 50 ML; Start 03/01/16 at 02:00 Glucagon (Glucagen) 1 mg Q15M PRN IM DECREASED GLUCOSE; Start 03/01/16 at 02: 00 Glucose (Glutose) 15 gm Q15M PRN BUCCAL DECREASED GLUCOSE; Start 03/01/16 at 02:00 Diagnostic Test (Pha) (Accucheck) 1 ea 02 XX Last administered on 03/25/16 02: 47; Admin Dose 1 EA; Start 03/02/16 at 02:00 Bisacodyl (Dulcolax Supp) 10 mg DAILY PRN [place] CONSTIPATION Last administered on 03/25/16 14:53; Admin Dose 10 MG; Start 03/03/16 at 11:30 Clotrimazole (Lotrimin Cr) 1 applic BID TOP Last administered on 03/28/16 08: 35; Admin Dose 1 APPLIC; Start 03/03/16 at 13:30 Ondansetron HCl (Zofran Inj) 4 mg Q4H PRN IV NAUSEA AND/OR VOMITING; Start at 23:30 Gabapentin (Neurontin) 300 mg Q8 GTB Last administered on 03/28/16 05:55; Admin Dose 300 MG; Start 03/13/16 at 06:00 Hydralazine HCl (Apresoline) 10 mg Q6H PRN IV SBP>160 Last administered on 01:28; Admin Dose 10 MG; Start 03/14/16 at 22:00 Insulin Aspart (Novolog Insulin Pen) (Adult SC Insulin - Moder... Q6 SC Last administered on 03/28/16 06:05; Admin Dose 4 UNIT; Start 03/18/16 at 06:30 Docusate Sodium (Colace Liquid Cup) 100 mg BID PEG Last administered on 08:33; Admin Dose 100 MG; Start 03/22/16 at 09:00 Mycophenolate Mofetil (Cellcept) 500 mg BID PEG Last administered on 03/28/16 08:33; Admin Dose 500 MG; Start 03/22/16 at 09:00 Polyethylene Glycol (Miralax) 17 gm TID GTB Last administered on 03/28/16 08: 33; Admin Dose 17 GM; Start 03/22/16 at 21:00 Losartan Potassium (Cozaar) 25 mg BID PEG Last administered on 03/28/16 08:34 ; Admin Dose 25 MG; Start 03/23/16 at 21:00 Clonidine (Catapres) 0.1 mg Q8H PRN PEG SBP GREATER THAN 160 Last administered on 03/26/16 00:12; Admin Dose 0.1 MG; Start 03/23/16 at 11:30 Lubiprostone (Amitiza) 24 mcg DAILY PO Last administered on 03/28/16 08:34; Admin Dose 24 MCG; Start 03/24/16 at 13:00 Diltiazem HCl (Cardizem) 60 mg Q6 PEG Last administered on 03/28/16 05:56; Admin Dose 60 MG; Start 03/26/16 at 00:00 Fentanyl (Duragesic 25 Mcg/Hr Patch) 1 patch Q72H TRANSDERM Last administered on 03/26/16 17:33; Admin Dose 1 PATCH; Start 03/26/16 at 13:00 Lansoprazole (Prevacid) 30 mg BID@06,18 GTB Last administered on 03/28/16 05: 55; Admin Dose 30 MG; Start 03/26/16 at 18:00 Furosemide (Lasix) 20 mg DAILY NGT Last administered on 03/28/16 08:35; Admin Dose 20 MG; Start 03/27/16 at 09:00 Prednisone (Prednisone) 10 mg DAILY PO Last administered on 03/28/16 08:34; Admin Dose 10 MG; Start 03/28/16 at 09:00 Insulin Glargine (Lantus) 60 unit QHS SC Last administered on 03/27/16 21:52; Admin Dose 60 UNIT; Start 03/27/16 at 21:00 Apixaban (Eliquis) 5 mg BID PO Last administered on 03/28/16 08:34; Admin Dose 5 MG; Start 03/27/16 at 21:00 AISHA TINEO Mar 28, 2016 12:54
--- NOTE | 2016-03-28 14:45 | CONS ---
Date/Time of Note Date/Time of Note DATE: 03/28/16 TIME: 14:42 Consult Date/Type/Reason Admit Date/Time Feb 29, 2016 at 18:54 Initial Consult Date 03/08/16 Type of Consultation: ID Ordering Provider: KANCHAN LEONARD MD Subjective no acute changes, no fevers, looks comfortable Objective Vital Signs Date Time Temp Pulse Resp B/P Pulse Ox O2 Delivery O2 Flow Rate FiO2 03/28/16 12:28 102 03/28/16 11:37 98.3 22 158/75 97 03/28/16 08:00 Nasal Cannula 2.0 03/28/16 07:59 32 Intake and Output 03/27/16 03/27/16 03/28/16 15:00 23:00 07:00 Intake Total 900 ml 650 ml Balance 900 ml 650 ml Results/Medications Result Diagram: 03/28/16 0650 03/28/16 0650 Results 24 hrs Laboratory Tests Test 03/27/16 17:39 03/27/16 17:41 03/27/16 21:23 03/27/16 23:38 Bedside Glucose 388 H 346 H 344 H 318 H Test 03/28/16 05:59 03/28/16 06:50 03/28/16 12:31 Bedside Glucose 219 142 Anion Gap 10 Anisocytosis 1+ Basophils # 0.0 Basophils % 0.0 Blood Morphology Comment Blood Urea Nitrogen 56 H Calcium Level 8.6 Carbon Dioxide Level 34 H Chloride Level 97 Creatinine 0.93 Differential Comment AUTO w/SCAN Eosinophils # 0.0 Eosinophils % 0.0 Glucose Level 190 # Hematocrit 31.2 L Hemoglobin 10.4 L Hypochromasia 1+ Lymphocytes # 0.4 L Lymphocytes % 6.8 L Mean Corpuscular Hemoglobin 27.9 L Mean Corpuscular Hemoglobin Concent 33.5 Mean Corpuscular Volume 83.4 Mean Platelet Volume 9.2 Monocytes # 0.4 Monocytes % 6.8 Neutrophils # 5.7 Neutrophils % 86.4 H Nucleated Red Blood Cells # 0.0 Nucleated Red Blood Cells % 0.0 Platelet Count 148 Potassium Level 4.9 Red Blood Count 3.74 L Red Cell Distribution Width 17.2 H Sodium Level 136 White Blood Count 6.6 Medications Current Medications Brimonidine Tartrate (Alphagan 0.2%) 1 drop Q8 BOTH EYES Last administered on t 13:12; Admin Dose 1 DROP; Start 03/01/16 at 06:00 Latanoprost (Xalatan) 1 drop QHS BOTH EYES Last administered on 03/27/16 21:24 ; Admin Dose 1 DROP; Start 03/01/16 at 21:00 Acetaminophen (Tylenol Tab) 650 mg Q4H PRN PO pain/fever Last administered on 17:41; Admin Dose 650 MG; Start 03/01/16 at 01:00 Morphine Sulfate (morphine) 2 mg Q2H PRN IV pain Last administered on 03/19/16 01:55; Admin Dose 2 MG; Start 03/01/16 at 01:00 Miscellaneous Information 1 ea NOTE XX ; Start 03/01/16 at 02:00 Glucose (Glutose) 15 gm Q15M PRN PO DECREASED GLUCOSE; Start 03/01/16 at 02:00 Glucose (Glutose) 22.5 gm Q15M PRN PO DECREASED GLUCOSE; Start 03/01/16 at 02: 00 Dextrose (D50w Syringe) 25 ml Q15M PRN IV DECREASED GLUCOSE Last administered on 03/13/16at 13:36; Admin Dose 25 ML; Start 03/01/16 at 02:00 Dextrose (D50w Syringe) 50 ml Q15M PRN IV DECREASED GLUCOSE Last administered on 03/13/16at 12:30; Admin Dose 50 ML; Start 03/01/16 at 02:00 Glucagon (Glucagen) 1 mg Q15M PRN IM DECREASED GLUCOSE; Start 03/01/16 at 02: 00 Glucose (Glutose) 15 gm Q15M PRN BUCCAL DECREASED GLUCOSE; Start 03/01/16 at 02:00 Diagnostic Test (Pha) (Accucheck) 1 ea 02 XX Last administered on 03/25/16 02: 47; Admin Dose 1 EA; Start 03/02/16 at 02:00 Bisacodyl (Dulcolax Supp) 10 mg DAILY PRN MD CONSTIPATION Last administered on 03/25/16 14:53; Admin Dose 10 MG; Start 03/03/16 at 11:30 Clotrimazole (Lotrimin Cr) 1 applic BID TOP Last administered on 03/28/16 08: 35; Admin Dose 1 APPLIC; Start 03/03/16 at 13:30 Ondansetron HCl (Zofran Inj) 4 mg Q4H PRN IV NAUSEA AND/OR VOMITING; Start at 23:30 Gabapentin (Neurontin) 300 mg Q8 GTB Last administered on 03/28/16 13:11; Admin Dose 300 MG; Start 03/13/16 at 06:00 Hydralazine HCl (Apresoline) 10 mg Q6H PRN IV SBP>160 Last administered on 01:28; Admin Dose 10 MG; Start 03/14/16 at 22:00 Insulin Aspart (Novolog Insulin Pen) (Adult SC Insulin - Moder... Q6 SC Last administered on 03/28/16 13:21; Admin Dose 2 UNIT; Start 03/18/16 at 06:30 Docusate Sodium (Colace Liquid Cup) 100 mg BID PEG Last administered on 08:33; Admin Dose 100 MG; Start 03/22/16 at 09:00 Mycophenolate Mofetil (Cellcept) 500 mg BID PEG Last administered on 03/28/16 08:33; Admin Dose 500 MG; Start 03/22/16 at 09:00 Polyethylene Glycol (Miralax) 17 gm TID GTB Last administered on 03/28/16 13: 10; Admin Dose 17 GM; Start 03/22/16 at 21:00 Losartan Potassium (Cozaar) 25 mg BID PEG Last administered on 03/28/16 08:34 ; Admin Dose 25 MG; Start 03/23/16 at 21:00 Clonidine (Catapres) 0.1 mg Q8H PRN PEG SBP GREATER THAN 160 Last administered on 03/26/16 00:12; Admin Dose 0.1 MG; Start 03/23/16 at 11:30 Lubiprostone (Amitiza) 24 mcg DAILY PO Last administered on 03/28/16 08:34; Admin Dose 24 MCG; Start 03/24/16 at 13:00 Diltiazem HCl (Cardizem) 60 mg Q6 PEG Last administered on 03/28/16 13:11; Admin Dose 60 MG; Start 03/26/16 at 00:00 Fentanyl (Duragesic 25 Mcg/Hr Patch) 1 patch Q72H TRANSDERM Last administered on 03/26/16 17:33; Admin Dose 1 PATCH; Start 03/26/16 at 13:00 Lansoprazole (Prevacid) 30 mg BID@06,18 GTB Last administered on 03/28/16 05: 55; Admin Dose 30 MG; Start 03/26/16 at 18:00 Furosemide (Lasix) 20 mg DAILY NGT Last administered on 03/28/16 08:35; Admin Dose 20 MG; Start 03/27/16 at 09:00 Prednisone (Prednisone) 10 mg DAILY PO Last administered on 03/28/16 08:34; Admin Dose 10 MG; Start 03/28/16 at 09:00 Insulin Glargine (Lantus) 60 unit QHS SC Last administered on 03/27/16 21:52; Admin Dose 60 UNIT; Start 03/27/16 at 21:00 Apixaban (Eliquis) 5 mg BID PO Last administered on 03/28/16 08:34; Admin Dose 5 MG; Start 03/27/16 at 21:00 Assessment/Plan Chief Complaint/Hosp Course MICROBIOLOGY: Urine culture repeated on 03/19/2016 growing Cindy glabrata. INDWELLINGS: PICC line, PEG. PHYSICAL EXAMINATION: GENERAL: This is an obese, chronically ill-appearing, elderly woman who is awake, in no distress. HEENT: Head atraumatic, normocephalic. Sclerae anicteric. Buccal mucosa dry. NECK: Obese. CHEST: Rise symmetrical. Breath sounds CTA, diminished to bases, scattered crackles upper lobes. HEART: S1, S2. ABDOMEN: Distended, soft, bowel tones present. EXTREMITIES: Without cyanosis. ASSESSMENT: 1. S/p sepsis 2. S/p acute respiratory failure secondary to secretion retention, possibly ongoing aspiration, sputum culture grew Escherichia coli. 3. S/p Urinary tract infection. 4. Dysphagia, status post percutaneous endoscopic gastrostomy. 5. Acute renal failure, improved. 6. Thrombocytopenia, possibly secondary to vancomycin. 7. Paroxysmal atrial fibrillation. 8. Status post fecal impaction with chronic constipation. 9. 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 PLAN: Remains stable, no fevers, continue aspiration precautions, pending dc plan. [place] Problems: LEÓN PAK NP Mar 28, 2016 14:45
== END 2016-03-28 15:23 | DRG 177 ==
LOC: E/R 15:13 → TEL 18:54 → ICU 03-15 13:11 → TEL 03-23 18:45
PROVIDERS: ADMIT Legal Medicine; ATTEND Legal Medicine
PROC: 5A09357 Assistance with Respiratory Ventilation, Less than 24 Consecutive Hours, Continuous Positive Airway Pressure (ICD-10-PCS; 2016-02-29)
PROC: 02HV33Z Insertion of Infusion Device into Superior Vena Cava, Percutaneous Approach (ICD-10-PCS; principal; 2016-03-15)
PROC: 30233N1 Transfusion of Nonautologous Red Blood Cells into Peripheral Vein, Percutaneous Approach (ICD-10-PCS; 2016-03-16)
PROC: 0DH63UZ Insertion of Feeding Device into Stomach, Percutaneous Approach (ICD-10-PCS; 2016-03-21)
DX: J69.0 Pneumonitis due to inhalation of food and vomit (principal); J96.00 Acute respiratory failure, unspecified whether with hypoxia or hypercapnia; N17.0 Acute kidney failure with tubular necrosis; A41.9 Sepsis, unspecified organism; G93.40 Encephalopathy, unspecified; G92 Toxic encephalopathy; J96.01 Acute respiratory failure with hypoxia; K92.0 Hematemesis; I50.9 Heart failure, unspecified; I13.0 Hypertensive heart and chronic kidney disease with heart failure and stage 1 through stage 4 chronic kidney disease, or unspecified chronic kidney disease; E46 Unspecified protein-calorie malnutrition; J44.0 Chronic obstructive pulmonary disease with (acute) lower respiratory infection; I48.0 Paroxysmal atrial fibrillation; E87.2 Acidosis; N39.0 Urinary tract infection, site not specified; J44.1 Chronic obstructive pulmonary disease with (acute) exacerbation; N17.9 Acute kidney failure, unspecified; L12.9 Pemphigoid, unspecified; E87.1 Hypo-osmolality and hyponatremia; K92.1 Melena; M80.88XA Other osteoporosis with current pathological fracture, vertebra(e), initial encounter for fracture; B37.49 Other urogenital candidiasis; J20.9 Acute bronchitis, unspecified; K59.00 Constipation, unspecified; Z79.4 Long term (current) use of insulin; Z79.02 Long term (current) use of antithrombotics/antiplatelets; I25.10 Atherosclerotic heart disease of native coronary artery without angina pectoris; Z86.73 Personal history of transient ischemic attack (TIA), and cerebral infarction without residual deficits; G89.29 Other chronic pain; Z79.52 Long term (current) use of systemic steroids; E11.65 Type 2 diabetes mellitus with hyperglycemia; E11.22 Type 2 diabetes mellitus with diabetic chronic kidney disease; J45.909 Unspecified asthma, uncomplicated; D64.9 Anemia, unspecified; B96.20 Unspecified Escherichia coli [E. coli] as the cause of diseases classified elsewhere; Z16.24 Resistance to multiple antibiotics; D50.0 Iron deficiency anemia secondary to blood loss (chronic); Z68.34 Body mass index [BMI] 34.0-34.9, adult; R13.10 Dysphagia, unspecified; E87.6 Hypokalemia; N18.9 Chronic kidney disease, unspecified
CPT/HCPCS: 36415; 36430; 36569; 36600; 70450; 70551; 71010; 71250; 74000; 74010; 74176; 76700; 76937; 80048; 80053; 80202; 81001; 81003; 82270; 82550; 82553; 82728; 82803; 82962; 83036; 83540; 83605; 83735; 83880; 84100; 84155; 84300; 84436; 84439; 84443; 84479; 84484; 85014; 85018; 85025; 85610; 85651; 85730; 86644; 86850; 86900; 86901; 86920; 87040; 87070; 87075; 87081; 87086; 87400; 89190; 89220; 92526; 92610; 93005; 93306; 93923; 94640; 94644; 94645; 94660; 94664; 94668; 95819; 96365; 96366; 96368; 96372; 96375; 96376; 97001; 97003; 97110; 97116; 97164; 97168; 97530; J1940; C9113; J0360; J0690; J1450; J1650; J1815; J1956; J2060; J2185; J2250; J2270; J2405; J2920; J2930; J2997; J3010; J3370; J3475; J3480; J7030; J7040; J7042; J7050; J7070; J7512; J7517; P9016; P9045